=== PATIENT | female | born 1965 | race Caucasian/White ===

== ENCOUNTER → 2018-01-11 12:29 | Outpatient (CLI) | payer BC, SELFPAY ==
[2018-01-11 16:00] LABS: Ferritin 65 ng/mL (8-252); Iron 73 ug/dL (50-170)
== END ==
PROVIDERS: Family Provider Family Medicine; PCP Family Medicine; Visit Provider Family Medicine
DX: D64.9 Anemia, unspecified (principal)
CPT/HCPCS: 36415; 82728; 83540

== ENCOUNTER → 2018-02-14 18:51 | Outpatient (CLI) | payer BC, SELFPAY ==
[2018-02-14 18:53] LABS: Bacteria 0 SEEN /hpf (None Seen); Mucous, Urine 0 SEEN /hpf (<or=2+); Red Blood Cells-Urine 0 SEEN /hpf (0-5)
[2018-02-14 19:06] LABS: Color, Urine Yellow (Yellow); Glucose, Dipstick Normal (Normal); Ketone-Dipstick Negative (Negative); Leukocyte Esterase-Dipstick 25 /ul (Negative); Nitrite-Dipstick Negative (Negative); Occult Blood-Urine Negative /ul (Negative); Protein-Dipstick 15 mg/dl (Negative); Specific Gravity, Urine 1.015 (1.002-1.030); Urine Bilirubin Dipstick Negative (Negative); Urine Clarity Sl. Cloudy (Clear); Urine Urobilinogen Normal (Normal); Urine pH 6.5 (5.0 - 8.0)
[2018-02-14 19:35] LABS: Squamous Epithelial Cells - UA 0-5 SEEN /hpf (5-10); White Blood Cells 0-5 SEEN /hpf (0-5)
== END ==
PROVIDERS: Family Provider Family Medicine; PCP Family Medicine; Visit Provider Physician Assistant Surgical
DX: R30.0 Dysuria (principal)
CPT/HCPCS: 81001; 87086; 87088

== ENCOUNTER → 2018-02-21 11:09 | Outpatient (CLI) | payer BC, SELFPAY ==
--- NOTE | 2018-02-21 11:27 | EKG12_ITS ---
Test Reason : PRE OP Blood Pressure : / mmHG Vent. Rate : 060 BPM Atrial Rate : 060 BPM P-R Int : 172 ms QRS Dur : 084 ms QT Int : 426 ms P-R-T Axes : 008 031 042 degrees QTc Int : 426 ms Normal sinus rhythm Normal ECG Confirmed by STEPHANIE NAILS ([id number]), clinical editor DEMETRIUS CANDELARIO ([id number] on 02/23/2018 2:46:44 PM Referred By: George Cardona Confirmed By:STEPHANIE NAILS
[2018-02-21 11:51] LABS: Hematocrit 42.6 % (37-47); Hemoglobin 14.3 g/dl (12.0-15.0); Mean Corp Hgb Conc 33.6 g/gl (32-36); Mean Corpuscular Hgb 31.6 pg (27.0-32.0); Mean Corpuscular Volume 94.2 fL (81-99); Mean Platelet Vol. 11.2 fl (6.2-12.0); Platelet Count 244 K/mm3 (150-450); RBC Distribution Width CV 12.3 % (11.6-14.6); RBC Distribution Width SD 42.2 fl (35.1-43.9); Red Blood Count 4.52 M/mm3 (4.2-5.4); Scan Indicated on CBC? Y/N NO; White Blood Count 8.6 K/mm3 (4.4-11.0)
[2018-02-21 12:19] LABS: BUN 18 mg/dL (7-18); Creatinine, Serum 0.76 mg/dL (0.55-1.02); EST Glomerular Filtration Rate 85 mL/min (>60); Glucose 91 mg/dL (74-106)
[2018-02-21 12:20] LABS: Anion Gap 7 (5-15); BUN/Creat Ratio 23.8 RATIO (10-20); Calcium,Total 8.7 mg/dL (8.5-10.1); Chloride 105 mmol/L (98-107); Est Glom Filt Rate - Afr Amer 103 mL/min (>60); Potassium 3.9 mmol/L (3.5-5.1); Sodium Level 141 mmol/L (136-145)
== END ==
PROVIDERS: Family Provider Family Medicine; PCP Family Medicine; Visit Provider Orthopaedic Surgery
DX: Z01.818 Encounter for other preprocedural examination (principal); Z01.810 Encounter for preprocedural cardiovascular examination
CPT/HCPCS: 36415; 80048; 85027; 93005

== ENCOUNTER → 2018-03-16 10:44 | Outpatient (CLI) | payer BC, SELFPAY ==
--- NOTE | 2018-03-16 10:48 | RAD_ITS ---
STUDY: X-RAY - LUMBOSACRAL SPINE REASON FOR EXAM: Female, 53 years old. Chronic lower back pain. TECHNIQUE: 7 view(s) of the lumbosacral spine were obtained. COMPARISON: Lumbar spine, August 14, 2014. FINDINGS: Normal lumbar lordosis. There is no substantial scoliosis. There is normal alignment of the vertebrae. No alteration of alignment with flexion or extension. Normal vertebral bodies and endplates. Normal disc space heights. There is no evidence of acute fracture or loss of vertebral axial height. Normal bilateral sacral ala, sacroiliac joints, and visualized sacrum. Normal visualized soft tissue structures. RAD/L/S Spine Bending Flex/Ext IMPRESSION: Normal x-ray examination of the lumbosacral spine. There is no interval change. Electronically Signed: Brodie Morfin DO at 16:05 EDT Tel [phone], Service support ,
== END ==
PROVIDERS: Family Provider Family Medicine; PCP Family Medicine; Visit Provider Family Medicine
DX: M54.5 Low back pain (principal); G89.29 Other chronic pain; M51.36 Other intervertebral disc degeneration, lumbar region
CPT/HCPCS: 72120

== ENCOUNTER 2018-03-18 15:13 | Emergency (ER) | payer BC, SELFPAY ==
[2018-03-18 15:15] VITALS: BP 129/90; PULSE 80; RESP 18; TEMP 36.6; O2SAT 95; BMI 37.9
--- NOTE | 2018-03-18 15:35 | CT_ITS ---
STUDY: CTA CHEST REASON FOR EXAM: Female, 53 years old. Chest pain. Recent knee surgery. RADIATION DOSAGE (If Supplied By Facility): CTDIvol = ( 18.98 ) mGy, DLP = ( 738.82 ) mGycm TECHNIQUE: The examination was performed with the intravenous administration of 100 ml of Isovue 370 contrast material. Post-processing of the angiographic images was performed, with multiplanar reformation and 3D reconstruction. Individualized dose optimization techniques were used for this CT. COMPARISON: None. FINDINGS: Normal enhancement of the main pulmonary artery and right and left pulmonary arteries. Normal enhancement of the bilateral peripheral pulmonary arteries. There is no demonstrated pulmonary embolism. Normal thoracic aorta and visualized great vessels. There is no demonstrated aortic dissection. Normal heart and pericardium. Normal mediastinum. Normal hilar regions. Normal visualized trachea and bronchi. The lungs are under expanded. Normal pulmonary parenchyma. Normal pleura. Normal chest wall structures. Several old left rib fractures are seen. Probable fatty liver. Numerous small low-attenuation structures as much as 1.6 cm consistent with cysts, but recommend confirmation with contrast CT of the abdomen. CT/CTA Chest W/WO Contrast IMPRESSION: Normal CTA chest examination, without a demonstrated pulmonary embolism or arterial dissection. Incomplete expansion of the lungs but no acute disease. Electronically Signed: Martin Garza MD at 16:58 EDT , Service support ,
--- NOTE | 2018-03-18 15:35 | EKG12_ITS ---
Test Reason : CHEST PAIN Blood Pressure : / mmHG Vent. Rate : 081 BPM Atrial Rate : 081 BPM P-R Int : 172 ms QRS Dur : 082 ms QT Int : 394 ms P-R-T Axes : 024 040 038 degrees QTc Int : 457 ms Normal sinus rhythm Normal ECG Confirmed by FILI MASCORRO MD ([id number]), city editor DEMETRIUS CANDELARIO ([id number] on 03/21/2018 1:11:28 PM Referred By: TISH Confirmed By:FILI MASCORRO MD
[2018-03-18 16:19] LABS: Anion Gap 6 (5-15); BUN 14 mg/dL (7-18); BUN/Creat Ratio 16.8 RATIO (10-20); Calcium,Total 8.6 mg/dL (8.5-10.1); Chloride 105 mmol/L (98-107); Creatinine, Serum 0.83 mg/dL (0.55-1.02); EST Glomerular Filtration Rate 76 mL/min (>60); Est Glom Filt Rate - Afr Amer 92 mL/min (>60); Estimated Creatinine Clearance 70.53 ml/min; Glucose 84 mg/dL (74-106); Potassium 3.8 mmol/L (3.5-5.1); Sodium Level 138 mmol/L (136-145)
[2018-03-18 16:29] VITALS: O2SAT 95
[2018-03-18 16:30] LABS: Absolute Lymphocyte Count 1.92 X10^3/ul (0.83-4.51); Absolute Neutrophil Count 6.7 X10^3/uL (2.0-7.7); Basophil# 0.02 X10^3/uL; Basophil% 0.2 % (0-1); Eosinophil# 0.33 X10^3/uL; Eosinophils% 3.5 % (0-5); Hematocrit 38.1 % (37-47); Lymphocyte # 1.92 X10^3/ul (4.0); Lymphocyte % 20.2 % (19-41); Mean Corp Hgb Conc 34.1 g/gl (32-36); Mean Corpuscular Hgb 31.3 pg (27.0-32.0); Mean Corpuscular Volume 91.8 fL (81-99); Mean Platelet Vol. 10.8 fl (6.2-12.0); Monocyte# 0.57 X10^3/uL; Neutrophil # 6.67 X10^3/uL (2.7-7.7); Platelet Count 193 K/mm3 (150-450); RBC Distribution Width SD 40.4 fl (35.1-43.9); Red Blood Count 4.15 M/mm3 (4.2-5.4); White Blood Count 9.5 K/mm3 (4.4-11.0)
[2018-03-18 16:31] LABS: POSITIVE COUNT NO; POSITIVE DIFFERENTIAL NO; POSITIVE MORPHOLOGY NO
--- NOTE | 2018-03-18 17:21 | VDLE_ITS ---
Reason For Study: PAIN RIGHT LEFT GSV is normal. GSV is normal. CFV is compressible, spontaneous, phasic, CFV is compressible, spontaneous, phasic, competent and demonstrates normal competent, and demonstrates normal augmentation. augmentation. FV is compressible, spontaneous, phasic, FV is compressible, spontaneous, phasic, competent and demonstrates normal competent and demonstrates normal augmentation. augmentation. POP V is compressible, spontaneous, phasic, POP V is compressible, spontaneous, phasic, competent and demonstrates normal competent and demonstrates normal augmentation. augmentation. T/P Trunk is compressible. T/P Trunk is compressible. PTV is compressible. PTV is compressible. RT PerV is compressible. LT PerV is compressible. Procedure Exam performed in department. The exam was diagnostic. A preliminary report was called and/or faxed to ED & Dr White (PCP) @ 1:45 pm @ [phone]. Interpretation Summary Deep veins of the lower extremities are bilaterally patent and compressible segmentally. There is no evidence of deep vein thrombosis on either side. Valvular competence appears intact within the proximal deep venous systems bilaterally. The greater saphenous veins appear bilaterally patent and compressible segmentally. Ordering Physician: Peña Paige Referring Physician: Aidan Islas Performed By: Karin Palacios, KARON, RVT
--- NOTE | 2018-03-18 17:27 | ED.VISSUMM ---
- ER Visit Summary Date of Service: 03/18/18 Chief Complaint: Chest pain History of Present Illness: The patient is a 53 F who presents with chest pain. It began earlier today. It has been intermittent. It is sharp. It is worse with inspiration. At its worst it is 6 out of 10. She is currently pain-free. She does report some mild nausea and mild shortness of breath. She had arthroscopic knee surgery 15 days ago. He does note some mild calf pain as well. No history of prior DVT or pulmonary embolism. She does not have coronary artery disease risk factors such as hypertension diabetes hyperlipidemia. She is not a smoker. Physical Examination: Afebrile vitals are normal Moist mucous membranes Heart regular rate and rhythm Lungs are clear Abdomen soft Patient has some mild bilateral calf tenderness but the extremities are warm and pink she has mild edema she has brisk capillary refill normal sensation Test Results: EKG shows normal sinus rhythm at a rate of 81. CBC BMP troponin unremarkable. CTA was obtained which shows no evidence of PE or aortic dissection it shows old left-sided rib fractures. Emergency Department Course and Treatment: Patient has normal CTA and I believe pulmonary embolism is ruled out. However she also has some mild calf tenderness with recent surgery so I do still feel she will need definitively evaluated for DVT as well. Ultrasound is not available. We will arrange for outpatient venous duplex. She was instructed on specific signs and symptoms to monitor for, conditions under which to return to the emergency department. She was discharged. Treatment Plan: [] Disposition: Discharge Impression: Chest pain Bilateral calf pain This note was generated with [employer] dictation software. It may contain incorrect words, spelling, and punctuation that were not noted in review of the chart prior to signing ED Disposition - Plan for ED Patient: Chief Complaint: Chest Pain Referrals: Madelin White DO [Primary Care Provider] -
--- NOTE | 2018-03-18 17:30 | ED.DEP ---
ED Disposition - Plan for ED Patient: Chief Complaint: Chest Pain Instructions: ED Chest Pain NonCardiac Referrals: Madelin White DO [Primary Care Provider] -
[2018-03-18] MEDS: Enoxaparin 100 MG/ML Syringe SC (17:43)
[2018-03-18 17:45] VITALS: BP 130/83; PULSE 68; RESP 18
== END 2018-03-18 17:48 | disposition home or self-care (01) ==
PROVIDERS: Emergency Provider Emergency Medicine; Family Provider Family Medicine; PCP Family Medicine
DX: R07.9 Chest pain, unspecified (principal); M79.662 Pain in left lower leg; M79.661 Pain in right lower leg; G47.33 Obstructive sleep apnea (adult) (pediatric); Z87.891 Personal history of nicotine dependence
CPT/HCPCS: 71275; 80048; 84484; 85025; 93005; 93970; 96372; 99285; Q9967; A4216

== ENCOUNTER → 2018-03-20 13:19 | Outpatient (CLI) | payer BC, SELFPAY | PROVIDERS: Family Provider Family Medicine; PCP Family Medicine; Visit Provider Emergency Medicine | DX: M79.604 Pain in right leg (principal); M79.605 Pain in left leg | CPT/HCPCS: 93970 ==

== ENCOUNTER → 2018-04-24 10:21 | Outpatient (CLI) | payer BC, SELFPAY ==
--- NOTE | 2018-04-24 10:23 | BI_ITS ---
MAMMOGRAPHY - BILATERAL SCREENING REASON FOR EXAM: Female, 53 years old. Routine annual screening examination. PERTINENT HISTORY: Sister with breast cancer. TECHNIQUE: Digital bilateral breast katheryn (3D mammographic acquisition) in the CC and MLO projections. 2-D mediolateral oblique (MLO) and craniocaudad (CC) views of both breasts were obtained. CAD: Full Field Digital Mammography with Computer Added Detection was performed. COMPARISON: Comparison is made with prior study dated January 06, 2017 and December 19, 2015. FINDINGS: Breast Composition: The breasts are heterogeneously dense, which may obscure small masses. There are no dominant masses or suspicious calcifications. Stable appearance of the small bilateral axillary lymph nodes. No other significant abnormalities are identified. There has been no significant change since the prior study. BI/SCREENING MAMM (CAD), BILAT IMPRESSION: Stable bilateral screening mammogram. Yearly follow-up mammogram recommended. (A) ASSESSMENT CATEGORY: BIRADS Category 2: Benign. A letter regarding these results will be sent to the patient by the facility within 30 days. Approximately 10% of breast cancers are not detected by mammography. A normal mammogram should not delay biopsy of a clinically suspicious abnormality. [id number] Electronically Signed: Baljeet Luis MD at 11:40 EDT Tel [phone], Service support ,
== END ==
PROVIDERS: Family Provider Family Medicine; PCP Family Medicine; Visit Provider Family Medicine
DX: Z12.31 Encounter for screening mammogram for malignant neoplasm of breast (principal); Z80.3 Family history of malignant neoplasm of breast
CPT/HCPCS: 77063; 77067

== ENCOUNTER → 2018-05-15 09:46 | Outpatient (CLI) | payer BC, SELFPAY ==
--- NOTE | 2018-05-15 09:53 | RAD_ITS ---
STUDY: X-RAY - RIGHT KNEE REASON FOR EXAM: Female, 53 years old. Pain and swelling. Arthroscopic surgery 10 weeks ago. TECHNIQUE: 4 view(s) of the knee. COMPARISON: June 02, 2016 FINDINGS: Normal visualized distal femur. Normal visualized proximal tibia and fibula. Normal proximal tibiofibular articulation. Normal medial femorotibial compartment. Normal lateral femorotibial compartment. Normal patellofemoral articulation. The soft tissue structures are unremarkable. RAD/Knee 4 or More Views IMPRESSION: No significant abnormality identified. Electronically Signed: Kuldip Plaza MD at 16:52 EDT , Service support ,
== END ==
PROVIDERS: Family Provider Family Medicine; PCP Family Medicine; Visit Provider Family Medicine
DX: M25.561 Pain in right knee (principal)
CPT/HCPCS: 73564

== ENCOUNTER 2018-06-07 11:30 | Outpatient (RCR) | payer BC, SELFPAY ==
--- NOTE | 2018-05-22 09:47 | HP.PTEVAL_ITS ---
Patient's Visit Information RYANNE RENTERIA is a 53 year old F referred to Physical Therapy by Barbara Schaffer with a diagnosis of Back Pain. Date of Evaluation: 05/22/18 Physical Therapist: Graciela Pablo, PT - Visit Plan Frequency: 2x /Week Duration: 3 Weeks Plan: Therapeutic exercise and activities targeting total body strength, endurance, ROM and flexibility, specifically core, low back, scapular and lower extremity. Modalities and Manual as needed to decrease pain and increase ROM. Incorporate HEP to promote maintainence and independence. - Subjective Subjective: Patient presents in therapy today with chief complaint of back pain. She reports pain started a couple months ago without known injury. States she notices it most at work when she is standing and worsens with prolonged standing. 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 States bagging and twisting causes increased cervical pain compared to low back pain. She reports no numbness or tingling in legs but tingling between shoulder blades because of the neck. She reports pain increases with standing, bending over to tie a shoe. She is taking arthritis medication which helps with pain and muscle relaxor to help with pain. [place] her spouse who can help if needed. Independent with ADLs. Has x-ray of cervical spine showing disc degeneration of neck as well throughout lumbar spine per patient report. No MRI yet. Patient had arthroscopic knee surgery of the RLE in February 2018 - Pain low back Pain Intensity (Out of 10): 4 Pain Intensity Range: 3, 6 Comment: worsens with prolonged to standing cervical Pain Intensity (Out of 10): 3 Pain Intensity Range: 2, 5 Comment: worsens at work including tingling - Objective Posture: Sitting unsupported with slouched positioning on mat; Protruded cervical spine and forward flexed. Shoulders rounded in. Palpation: Tenderness to palpation along cervical paraspinals as well as moderate tightness; Tenderness to palpation and pain at T6 level on the right side. Lumbar tenderness and tightness of paraspinals, L>R. Sensation: Intact to light touch. Appearance: No swelling throughout spine. Strength: BUE grossly 5/5 strength except bilateral shoulder flexion 4/5, bilateral ER 4/5, bilateral shoulder retraction 4/5; BLE grossly 4+/5 except for bilateral hip abduction ( seated) 4-/5, bilateral hip flexion 4/5, right knee flexion 4/5, bilateral hip extension 4/5; low back strength 4/5 and core strength 3+/5. Range of Motion: lumbar flexion mild limitation, lumbar extension moderate limitation, lumbar rotation WFL, lumbar right side bending mild limitation, lumbar left side bending moderate limitation. Pain with motion returning to neutral from flexion , lumbar extension and left side bending. Cervical ROM WFL with slight pain with left sidebending. Hips/Knees WFL. Flexibility: Moderate tightness of bilateral hamstrings -25* on the left and -30* on the right. Alignment: Bilateral ASIS and medial malleoli equal in sitting. Gait: Patient ambulating with heel/toe foot progression with slight weight shift of trunk toward the right. increased base of support with ambulating. Repeated Movements: Patient did not show improvement with repeated extension due to muscle tension and flare up - Goals Goal 1:: Patient will increase core and low back strength by one muscle grade for improved posture and performance with functional activities. Goal Time Frame: 4-6 Weeks Goal 2:: Patient will increase bilateral hamstring flexibility by 5* for improved mobility Goal Time Frame: 4-6 Weeks Goal 3:: Patient will increase scapula stabilizing muscles by 1 muscle grade for improved posture and performance with functional activities Goal Time Frame: 4-6 Weeks Goal 4:: Patient will increase lumbar spine ROM in all planes to mild limitation for improved mobility Goal Time Frame: 4-6 Weeks Goal 5:: Patient will increase BLE grossly by 1 muscle grade for improved mobility and performance with functional activities Goal Time Frame: 4-6 Weeks Goal 6:: Patient will perform 10 minutes of therapeutic exercises and activities in standing without increase in low back pain Goal Time Frame: 4-6 Weeks - Rehabilitation Potential Physical Therapy Diagnosis: Muscle Weakness, Limited Range of Motion Rehabilitation Potential: Good - Anticipated Interventions Patient/Client Instruction: Educate patient on: Condition, Plan of Care For the Purpose of:: To decrease pain, To increase ROM, To improve muscle performance and motor function, To improve ability to perform ADL's, To improve ability of physical actions for home/community/work/leisure, To increase flexibility/ROM, To improve endurance Therapeutic Exercise to Include: Strength training, Endurance training, Body mechanics, Postural training, Flexibilty training, Dynamic Lumbar Stabilization , Rico Exercises, Scapular Strength/Stabilization For the Purpose of:: To increase ROM, To improve muscle performance and motor function, To improve ability of physical actions for home/community/work/leisure , To increase flexibility/ROM, To improve endurance Functional Training to Include: Functional work training For the Purpose of:: To improve muscle performance and motor function, To improve ability of physical actions for home/community/work/leisure Comment: massage not covered by insurance For the Purpose of:: To decrease pain, To increase ROM, To increase flexibility/ ROM Iontophoresis (with Dexamethozone, with Acetic acid): - not covered by insurance TENS: Yes Cryotherapy (ice pack, ice massage): Yes Thermo therapy (hot pack): Yes Ultrasound (thermal/non thermal): Yes For the Purpose of:: To decrease pain, To increase ROM, To increase flexibility/ ROM Thank you for the opportunity to evaluate your patient. For Medicare and Medicare HMO plans, please review the plan of care and approve it. It will need to be FAXED BACK to us at [phone] for Medicare purposes. Please let me know if there are questions or concerns regarding this plan of care. Physician Signature: Date:
--- NOTE | 2018-06-07 11:55 | HP.PTDCSUM_ITS ---
HP - PT D/C Summary It has been my pleasure to treat RYANNE RENTERIA under orders from Barbara Schaffer, for the diagnosis of Back Pain for a total of 7 visit(s). Discharge Date: Please see the following information for a summary of their discharge status. - Subjective Subjective: Patient conts to be in pain back and cervical. Patient had lumbar injections lumbar region helped minimally. Recommend MRI - Pain low back Pain Intensity (Out of 10): 4 cervical Pain Intensity (Out of 10): 4 - Overall Improvement % Improvement: 20 - Objective Objective/Function: POSTURE: mild foward posture. GAIT: normal jaquan. NEURO : c/o parathesia between shoulders ,reflexes inact. MMT: 4/5 LE grossly. LUMBAR ROM: flexion mod loss,extension mod severe loss pain,side glides mod loss. -SLR - Goals Goal 1:: Patient will increase core and low back strength by one muscle grade for improved posture and performance with functional activities. Goal Progress: Progressing Goal 2:: Patient will increase bilateral hamstring flexibility by 5* for improved mobility Goal Progress: Progressing Goal 3:: Patient will increase scapula stabilizing muscles by 1 muscle grade for improved posture and performance with functional activities Goal Progress: Progressing Goal 4:: Patient will increase lumbar spine ROM in all planes to mild limitation for improved mobility Goal Progress: Progressing Goal 5:: Patient will increase BLE grossly by 1 muscle grade for improved mobility and performance with functional activities Goal Progress: Progressing Goal 6:: Patient will perform 10 minutes of therapeutic exercises and activities in standing without increase in low back pain Goal Progress: Progressing - Plan Plan: D/C RECOMMEND mri - D/C Information If there are questions or concerns regarding this patient's physical therapy, please feel free to call me at [phone]. Thank you for the referral of this patient. Sincerely, Sundar Mantilla, PT,
== END 2018-06-07 19:00 | disposition home or self-care (01) ==
LOC: PT 11:30
PROVIDERS: Family Provider Family Medicine; PCP Family Medicine; Visit Provider Anesthesiology Pain Medicine
DX: M54.9 Dorsalgia, unspecified (principal)
CPT/HCPCS: 97110; 97161; 97162; 97530

== ENCOUNTER → 2018-06-14 17:02 | Outpatient (CLI) | payer BC, SELFPAY ==
--- NOTE | 2018-06-14 17:06 | MRI_ITS ---
STUDY: MRI CERVICAL SPINE WITHOUT CONTRAST REASON FOR EXAM: Female, 53 years old. NECK AND ARM PAIN NKI, pain neck and rt arm x 3 months TECHNIQUE: Standardized fat and water weighted pulse sequences were obtained in the sagittal and axial planes. COMPARISON: None FINDINGS: There is motion artifact. Normal foramen magnum and brainstem-cervical cord junction. Normal craniovertebral junction. Normal anterior atlantoaxial articulation. Normal odontoid process. Normal cervical lordosis. There is no spondylolisthesis. Disc heights are maintained. Vertebral body heights are maintained. Bone marrow signal is normal. C2/3: Normal. C3/4: Normal. C4/5: Normal. C5/6: There is a minimal diffuse bulge causing impression on the ventral thecal sac without neural foraminal stenosis. C6/7: There is a mild diffuse bulge causing impression on the ventral thecal sac without neuroforaminal stenosis. C7/T1: Normal. Normal cervical cord. Normal visualized soft tissue structures. MRI/Spine Cervical (Routine) IMPRESSION: There is minimal degenerative disc disease. No central canal or neuroforaminal stenosis. Electronically Signed: Marguerite Gusman MD at 15:58 EDT , Service support ,
== END ==
PROVIDERS: Family Provider Family Medicine; PCP Family Medicine; Visit Provider Anesthesiology Pain Medicine
DX: M54.2 Cervicalgia (principal); M79.603 Pain in arm, unspecified
CPT/HCPCS: 72141

== ENCOUNTER → 2018-07-04 15:39 | Outpatient (CLI) | payer BC, SELFPAY | PROVIDERS: Family Provider Family Medicine; PCP Family Medicine; Visit Provider Family Medicine | DX: M54.16 Radiculopathy, lumbar region (principal) | CPT/HCPCS: 72148 ==

== ENCOUNTER → 2018-09-14 11:26 | Outpatient (CLI) | payer BC, SELFPAY | PROVIDERS: Family Provider Family Medicine; PCP Family Medicine; Visit Provider Family Medicine | DX: R00.2 Palpitations (principal) | CPT/HCPCS: 36415; 80053; 83735; 84443 ==

== ENCOUNTER → 2018-09-18 13:15 | Outpatient (CLI) | payer BC, SELFPAY ==
[2018-09-18 15:40] LABS: Absolute Lymphocyte Count 2.08 X10^3/ul (0.83-4.51); Absolute Neutrophil Count 5.9 X10^3/uL (2.0-7.7); Basophil# 0.04 X10^3/uL; Basophil% 0.4 % (0-1); Eosinophil# 0.19 X10^3/uL; Eosinophils% 2.1 % (0-5); Hemoglobin 13.3 g/dl (12.0-15.0); Lymphocyte # 2.08 X10^3/ul (4.0); Lymphocyte % 23.3 % (19-41); Mean Corpuscular Hgb 33.9 pg (27.0-32.0); Mean Corpuscular Volume 96.9 fL (81-99); Mean Platelet Vol. 12.5 fl (6.2-12.0); Monocyte# 0.64 X10^3/uL; Monocyte% 7.2 % (0-10); Neutrophil # 5.91 X10^3/uL (2.7-7.7); Neutrophil % 66.3 % (47-70); Platelet Count 221 K/mm3 (150-450); RBC Distribution Width CV 12.2 % (11.6-14.6); RBC Distribution Width SD 41.3 fl (35.1-43.9); Red Blood Count 3.92 M/mm3 (4.2-5.4); White Blood Count 8.9 K/mm3 (4.4-11.0)
[2018-09-18 15:53] LABS: ALB/GLOB Ratio 1.3 RATIO (0.9-2.4); AST(SGOT) 17 U/L (15-37); Alanine Aminotransfer ALT/SGPT 51 U/L (13-56); Albumin, Serum 4.1 g/dL (3.2-5.0); Alkaline Phosphatase 72 U/L (45-117); Anion Gap 10 (5-15); BUN 11 mg/dL (7-18); BUN/Creat Ratio 16.3 RATIO (10-20); Calcium,Total 8.9 mg/dL (8.5-10.1); Chloride 104 mmol/L (98-107); Creatinine, Serum 0.68 mg/dL (0.55-1.02); EST Glomerular Filtration Rate 97 mL/min (>60); Est Glom Filt Rate - Afr Amer 117 mL/min (>60); Globulin 3.2 g/dL (2.2-4.2); Glucose 78 mg/dL (74-106); Magnesium 1.6 mg/dL (1.6-2.6); Potassium 3.6 mmol/L (3.5-5.1); Protein, Total 7.3 g/dL (6.4-8.2); Sodium Level 138 mmol/L (136-145); Thyroid Stim Hormone (TSH) 1.96 uIU/mL (0.358-3.74)
[2018-09-18 16:01] LABS: POSITIVE COUNT NO; POSITIVE DIFFERENTIAL NO; POSITIVE MORPHOLOGY NO
== END ==
PROVIDERS: Family Provider Family Medicine; PCP Family Medicine; Referring Provider Family Medicine; Visit Provider Family Medicine
DX: R00.2 Palpitations (principal)
CPT/HCPCS: 80053; 83735; 84443; 85025

== ENCOUNTER 2018-10-19 10:00 | Outpatient (RCR) | payer BC, SELFPAY ==
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
--- NOTE | 2018-08-24 09:31 | HP.PTREVAL ---
Madelin White, DO, It has been my pleasure to treat RYANNE RENTERIA over the last 11 visits for LUMBAR DISC SPACE NARROWING AND HNP. Please see the progress note below for an update on the physical therapy plan of care! Subjective: PATIENT REPORTS SHE HAS LESS BACK PAIN SINCE STARTING PT AND THE HIP EX'S ARE HELPING MY HIP PAIN TOO. PATIENT REPORTS SHE IS TOLERATING WORK AND HOUSEWORK BETTER WITH LESS PAIN. INTERMITTENT LB AND HIP PAIN RANGING 0/10 TO 5/10. PO WITH DR. BAR ABOUT 3 WEEKS AGO BUT DIDN'T REALLY HELP SO GOING TO DO ANOTHER ONE WHEN APPROVAL REC'D. Objective/Function: PATIENT IS MAKING SLOW PROGRESS TOWARD ALL PT GOALS. Motor deficit: LATISHA LE'S 5/5 EXCEPT HIPS 4/5. Sensory deficit: LATISHA LE LIGHT TOUCH SENSATION IS INTACT AND SYMMETRICAL. ROM deficit: MILD TIGHTNESS HIP FLEXORS AND HAMSTRINGS. Reflexes: 2/3 LATISHA LE'S. Dural Signs: NEGATIVE LATISHA LE'S. Lumbar mvmt loss: flex - MIN. ext - MOD. R SG - MOD. L SG - MOD. PATIENT WITH C/O PAIN AT THE END OF THE AVAILABLE RANGE WITH LUMBAR ROM TESTING ALL PLANES. Core strength: POOR. Palpation: ACUTE TENDERNESS WITH PALPATION OF THE LOWER LUMBAR SPINE BUT NOT IN THE BUTTOCKS OR HIPS BUT NOT QUITE TENDER AT INITIAL EVAL. BACK OSWESTRY HAS IMPROVED FROM 22 TO 14 Plan Plan: CONT PT PER ORIG POC WITH SLOW PROGRESSION TO INDEP POOL PROGRAM. 2X'S A WEEK X 3 WEEKS THEN 1X A WEEK X 4 WEEKS. Goals Goal 1:: DECREASE C/O LBP Goal Time Frame: 4-6 Weeks Goal Progress: Progressing Goal 2:: IMPROVE PERSONAL CARE, LIFTING, WALKING, SITTING, STANDING, SLEEPING, SOCIAL LIFE, TRAVEL AND EMPLOYMENT/HOMEMAKING FUNCTION. Goal Time Frame: 4-6 Weeks Goal Progress: Progressing Goal 3:: INSTRUCT IN PROPHYLAXIS Goal Time Frame: 4-6 Weeks Goal Progress: Progressing Anticipated Interventions Patient/Client Instruction: Educate patient on: Condition, Plan of Care, Risk Factors, Benefits of Fitness Program For the Purpose of:: To improve self management Therapeutic Exercise to Include: Strength training, Body mechanics, Postural training, Flexibilty training, In an aquatic setting, Dynamic Lumbar Stabilization For the Purpose of:: To decrease pain, To increase ROM, To improve muscle performance and motor function, To increase tolerance to activity/condition/position, To improve ability of physical actions for home/community/work/leisure, To improve gait and locomotor functions Please do not hesitate to contact me at [phone] by phone or if you have questions or concerns regarding this new plan of care! Sincerely, Viki Solano
--- NOTE | 2018-10-19 10:54 | HP.PTDCSUM_ITS ---
HP - PT D/C Summary It has been my pleasure to treat RYANNE RENTERIA under orders from Madelin White DO, for the diagnosis of LUMBAR DISC SPACE NARROWING AND HNP for a total of 18 visit(s). Discharge Date: 10/19/18 Please see the following information for a summary of their discharge status. - Subjective Subjective: PATIENT REPORTS SHE ADMITTED HERSELF TO THE PSYCH UNIT IN [place] FOR A WEEK AND WASN'T ABLE TO EX AND SWIM. REPORTS SHE JUST GOT HOME LAST NIGHT. PATIENT REPORTS HER PAIN WAS GETTING BETTER WITH THE POOL THERAPY UP UNTIL SHE HAD TO STOP. PATIENT PLANS TO CONTINUE INDEP WATER EX AT THE [facility]. FOLLOW UP PENDING WITH DR. SRIVASTAVA END October. - Pain Lumbar Spine Pain Intensity (Out of 10): 4 BLAT hips Pain Intensity (Out of 10): 4 SHldrs/Cerv. Spine Pain Intensity (Out of 10): 3 - Overall Improvement % Improvement: 95 - Objective Objective/Function: ALL GOALS MET. PATIENT IS INDEP WITH POOL AND WATER EX PROGRAMS. UPON EXAM: Motor deficit: LATISHA LE'S 5/5 EXCEPT HIPS 4/5. Sensory deficit: LATISHA LE LIGHT TOUCH SENSATION IS INTACT AND SYMMETRICAL. Reflexes: UNABLE TO ELICIT LATISHA QUAD DTR'S BUT LATISHA ACHILLES 2/2. Dural Signs: NEGATIVE LATISHA LE'S. Lumbar mvmt loss: flex - MIN. ext - MOD. R SG - MOD. L SG - MOD. PATIENT WITH C/O PAIN AT THE END OF THE AVAILABLE RANGE WITH LUMBAR ROM TESTING ALL PLANES. Core strength: POOR. Palpation: ACUTE TENDERNESS WITH PALPATION OF THE LOWER LUMBAR SPINE BUT NOT IN THE BUTTOCKS OR HIPS BUT NOT QUITE TENDER AT INITIAL EVAL. BACK OSWESTRY HAS GONE BACK UP TO 22 AFTER BEING IN THE HOSPITAL FOR A WEEK. - Goals Goal 1:: DECREASE C/O LBP Goal Progress: Progressing Goal 2:: IMPROVE PERSONAL CARE, LIFTING, WALKING, SITTING, STANDING, SLEEPING, SOCIAL LIFE, TRAVEL AND EMPLOYMENT/HOMEMAKING FUNCTION. Goal Progress: Progressing Goal 3:: INSTRUCT IN PROPHYLAXIS Goal Progress: Progressing - Plan Plan: D/C TO INDEP POOL EX. AND HOME EX'S. PATIENT IS EVEN PLANNING TO DO HER POOL PROGRAM AT THE [facility] TODAY. - D/C Information If there are questions or concerns regarding this patient's physical therapy, please feel free to call me at [phone]. Thank you for the referral of this patient. Sincerely, Viki Solano
== END 2018-10-19 19:00 | disposition home or self-care (01) ==
LOC: PT 10:00
PROVIDERS: Family Provider Family Medicine; PCP Family Medicine; Referring Provider Family Medicine; Visit Provider Family Medicine
DX: M51.26 Other intervertebral disc displacement, lumbar region (principal)
CPT/HCPCS: 97113; 97162; 97164; 97530

== ENCOUNTER → 2018-11-09 13:18 | Outpatient (CLI) | payer BC, SELFPAY ==
[2018-11-09 14:18] LABS: Hemoglobin 14.4 g/dl (12.0-15.0); Mean Corp Hgb Conc 35.1 g/gl (32-36); Mean Corpuscular Hgb 32.4 pg (27.0-32.0); Mean Corpuscular Volume 92.3 fL (81-99); Mean Platelet Vol. 11.9 fl (6.2-12.0); Platelet Count 256 K/mm3 (150-450); RBC Distribution Width SD 39.8 fl (35.1-43.9); Red Blood Count 4.44 M/mm3 (4.2-5.4); White Blood Count 7.7 K/mm3 (4.4-11.0)
[2018-11-09 14:22] LABS: Scan Indicated on CBC? Y/N NO
[2018-11-09 14:59] LABS: Anion Gap 12 (5-15); BUN 16 mg/dL (7-18); BUN/Creat Ratio 20.1 RATIO (10-20); Calcium,Total 8.8 mg/dL (8.5-10.1); Chloride 106 mmol/L (98-107); EST Glomerular Filtration Rate 80 mL/min (>60); Est Glom Filt Rate - Afr Amer 97 mL/min (>60); Glucose 93 mg/dL (74-106); Sodium Level 141 mmol/L (136-145); T4 Total, Thyroxin 6.6 ug/dL (4.8-13.9); Thyroid Stim Hormone (TSH) 3.92 uIU/mL (0.358-3.74)
== END ==
PROVIDERS: Family Provider Family Medicine; PCP Family Medicine
DX: F33.1 Major depressive disorder, recurrent, moderate (principal)
CPT/HCPCS: 36415; 80048; 80178; 84436; 84443; 85027

== ENCOUNTER → 2019-01-12 16:04 | Outpatient (CLI) | payer BC, SELFPAY ==
[2019-01-12 18:04] LABS: T4 Free Direct 1.12 ng/dL (0.76-1.46); Thyroid Stim Hormone (TSH) 5.58 uIU/mL (0.358-3.74)
[2019-01-16 13:30] LABS: Anti-Thyroglobulin AB < 1.0 IU/mL (0.0-0.9); Thyroid Peroxidase AB 7 IU/mL (0-34)
== END ==
PROVIDERS: Family Provider Family Medicine; PCP Family Medicine; Referring Provider Family Medicine; Visit Provider Family Medicine
DX: R79.89 Other specified abnormal findings of blood chemistry (principal); F33.1 Major depressive disorder, recurrent, moderate
CPT/HCPCS: 36415; 84432; 84439; 84443; 86376; 86800

== ENCOUNTER → 2019-04-04 12:16 | Outpatient (CLI) | payer BC, SELFPAY ==
[2019-04-04 14:33] LABS: CPK Total, Creatine Kinase 113 U/L (26-192); Ferritin 45 ng/mL (8-252)
== END ==
PROVIDERS: Family Provider Family Medicine; PCP Family Medicine; Referring Provider Family Medicine; Visit Provider Family Medicine
DX: R25.2 Cramp and spasm (principal)
CPT/HCPCS: 36415; 82550; 82728; 83735; 84132

== ENCOUNTER → 2019-04-17 14:21 | Outpatient (CLI) | payer BC, SELFPAY ==
[2019-04-17 16:13] LABS: ALB/GLOB Ratio 1.2 RATIO (0.9-2.4); AST(SGOT) 16 U/L (15-37); Alanine Aminotransfer ALT/SGPT 22 U/L (13-56); Albumin, Serum 3.6 g/dL (3.2-5.0); Alkaline Phosphatase 73 U/L (45-117); Anion Gap 6 (5-15); BUN 21 mg/dL (7-18); BUN/Creat Ratio 30.9 RATIO (10-20); Calcium,Total 8.8 mg/dL (8.5-10.1); Chloride 106 mmol/L (98-107); Creatinine, Serum 0.68 mg/dL (0.55-1.02); EST Glomerular Filtration Rate 96 mL/min (>60); Est Glom Filt Rate - Afr Amer 116 mL/min (>60); Globulin 2.9 g/dL (2.2-4.2); Glucose 68 mg/dL (74-106); Magnesium 1.7 mg/dL (1.6-2.6); Protein, Total 6.5 g/dL (6.4-8.2); Sodium Level 139 mmol/L (136-145); T4 Free Direct 1.08 ng/dL (0.76-1.46); Thyroid Stim Hormone (TSH) 1.96 uIU/mL (0.358-3.74)
== END ==
PROVIDERS: Family Provider Family Medicine; PCP Family Medicine; Referring Provider Family Medicine; Visit Provider Family Medicine
DX: E03.9 Hypothyroidism, unspecified (principal); I47.1 Supraventricular tachycardia
CPT/HCPCS: 36415; 80053; 83735; 84439; 84443

== ENCOUNTER → 2019-04-25 | Outpatient (CLI) | payer BC, SELFPAY ==
--- NOTE | 2019-04-25 09:59 | BI_ITS ---
MAMMOGRAPHY - BILATERAL SCREENING REASON FOR EXAM: Female, 54 years old. Routine annual screening examination. PERTINENT HISTORY: Sister with breast cancer. TECHNIQUE: Digital bilateral breast kasia (3D mammographic acquisition) in the CC and MLO projections. 2-D mediolateral oblique (MLO) and craniocaudad (CC) views of both breasts were obtained. CAD: Full Field Digital Mammography with Computer Added Detection was performed. COMPARISON: Comparison is made with prior examination dated April 24, 2018 and January 06, 2017. FINDINGS: Breast Composition: The breasts are heterogeneously dense, which may obscure small masses. There are no dominant masses or suspicious calcifications. Stable benign-appearing bilateral axillary lymph nodes. No other significant abnormalities are identified. There has been no significant change since the prior study. BI/SCREEN MAMM (CAD) W/KASIA BILAT IMPRESSION: Stable bilateral screening mammogram. Yearly follow-up mammogram recommended. (A) ASSESSMENT CATEGORY: BIRADS Category 2: Benign. A letter regarding these results will be sent to the patient by the facility within 30 days. Approximately 10% of breast cancers are not detected by mammography. A normal mammogram should not delay biopsy of a clinically suspicious abnormality. [id number] Electronically Signed: Baljeet Luis, at 10:57 EDT , Service support ,
== END | disposition home or self-care (01) ==
LOC: OPBI 09:57
PROVIDERS: Family Provider Family Medicine; PCP Family Medicine; Referring Provider Family Medicine; Visit Provider Family Medicine
DX: Z12.31 Encounter for screening mammogram for malignant neoplasm of breast (principal)
CPT/HCPCS: 77063; 77067

== ENCOUNTER → 2019-08-07 09:03 | Outpatient (CLI) | payer BC, SELFPAY ==
[2019-08-07 10:28] LABS: Hematocrit 42.6 % (37-47); Hemoglobin 14.8 g/dL (12.0-15.0); Mean Corp Hgb Conc 34.7 g/dL (32-36); Mean Corpuscular Hgb 31.8 pg (27.0-32.0); Mean Corpuscular Volume 91.4 fL (81-99); Mean Platelet Vol. 11.8 fl (6.2-12.0); Platelet Count 245 K/mm3 (150-450); RBC Distribution Width CV 11.7 % (11.6-14.6); RBC Distribution Width SD 38.5 fl (35.1-43.9); Red Blood Count 4.66 M/mm3 (4.2-5.4)
[2019-08-07 11:24] LABS: Anion Gap 9 (5-15); BUN 13 mg/dL (7-18); BUN/Creat Ratio 17.7 RATIO (10-20); Calcium,Total 8.7 mg/dL (8.5-10.1); Chloride 109 mmol/L (98-107); Creatinine, Serum 0.73 mg/dL (0.55-1.02); EST Glomerular Filtration Rate 88 mL/min (>60); Est Glom Filt Rate - Afr Amer 106 mL/min (>60); Glucose 106 mg/dL (74-106); Potassium 4.1 mmol/L (3.5-5.1); Sodium Level 142 mmol/L (136-145); T4 Free Direct 1.23 ng/dL (0.76-1.46); Thyroid Stim Hormone (TSH) 3.14 uIU/mL (0.358-3.74)
[2019-08-08 10:02] LABS: Hemoglobin A1c 5.1 % (4.2-6.3)
== END ==
PROVIDERS: Family Provider Family Medicine; PCP Family Medicine
DX: F33.2 Major depressive disorder, recurrent severe without psychotic features (principal)
CPT/HCPCS: 36415; 80048; 83036; 84439; 84443; 85027

== ENCOUNTER → 2019-11-12 12:51 | Outpatient (CLI) | payer BC, SELFPAY ==
[2019-11-12 13:55] LABS: Hematocrit 44.4 % (37-47); Hemoglobin 15.3 g/dL (12.0-15.0); Mean Corp Hgb Conc 34.5 g/dL (32-36); Mean Corpuscular Hgb 31.2 pg (27.0-32.0); Mean Corpuscular Volume 90.6 fL (81-99); Mean Platelet Vol. 11.9 fl (6.2-12.0); Platelet Count 245 K/mm3 (150-450); RBC Distribution Width CV 11.9 % (11.6-14.6); RBC Distribution Width SD 39.4 fl (35.1-43.9); White Blood Count 8.3 K/mm3 (4.4-11.0)
[2019-11-12 14:40] LABS: Anion Gap 5 (5-15); BUN 12 mg/dL (7-18); BUN/Creat Ratio 14.2 RATIO (10-20); Calcium,Total 9.1 mg/dL (8.5-10.1); Chloride 105 mmol/L (98-107); Creatinine, Serum 0.84 mg/dL (0.55-1.02); EST Glomerular Filtration Rate 75 mL/min (>60); Est Glom Filt Rate - Afr Amer 90 mL/min (>60); Glucose 80 mg/dL (74-106); Potassium 3.6 mmol/L (3.5-5.1); Sodium Level 136 mmol/L (136-145); Thyroid Stim Hormone (TSH) 4.57 uIU/mL (0.358-3.74)
== END ==
PROVIDERS: Family Provider Family Medicine; PCP Family Medicine
DX: F33.2 Major depressive disorder, recurrent severe without psychotic features (principal)
CPT/HCPCS: 36415; 80048; 80178; 84443; 85027

== ENCOUNTER 2020-01-03 09:20 | Outpatient (RCR) | payer BC, SELFPAY ==
[2019-11-27 08:10] VITALS: BMI 37.1
--- NOTE | 2020-01-03 12:51 | HP.FCE ---
HP OT Functional Capacity Eval Date of Evaluation: 01/03/20 - Task Lift Floor (Occasional 1-33% of Day): 20 Floor (Frequent 34-66% of Day): 10 Floor (Constant 67-100% of Day): Negligible Floor PDL: Light Knee (Occasional 1-33% of Day): 20 Knee (Frequent 34-66% of Day): 10 Knee (Constant 67-100% of Day): Negligible Knee PDL: Light Waist (Occasional 1-33% of Day): 20 Waist (Frequent 34-66% of Day): 10 Waist (Constant 67-100% of Day): Negligible Waist PDL: Light Shoulder (Occasional 1-33% of Day): 17 Shoulder (Frequent 34-66% of Day): 10 Shoulder (Constant 67-100% of Day): Negligible Shoulder PDL: Sedentary-Light Overhead (Occasional 1-33% of Day): 17 Overhead (Frequent 34-66% of Day): 10 Overhead (Constant 67-100% of Day): Negligible Overhead PDL: Sedentary-Light - Work Activity/Posture Bending: Occasional Ability (1-33% of day) Squatting: Occasional Ability (1-33% of day) Kneeling: Occasional Ability (1-33% of day) Reaching out: Frequent Ability (34-66% of day) Reaching up: Frequent Ability (34-66% of day) Sitting: Constant Ability (67-100% of day) Walking: Occasional Ability (1-33% of day) Standing: Occasional Ability (1-33% of day) - Reference Duration Sedentary Sedentary Light Light Light Medium Medium Medium Heavy Very Heavy Heavy Occasional (0-33% of day) Frequent (34-66% of day) Constant (67-100% of day) 10 # Negligible Negligible 15 # 8 # Negligible 20 # 10# Negli. 35 # 18 # 7 # 50 # 25 # 10 # 75 # 100 # >100 # 38 # 50 # >50 # 15 # 20 # >20 # - Patient Information Height: 5 ft 2 in Weight:: 90.718 kg Hand Dominance: Right - Medical History Medical History Including Restrictions: PMHx: Osteoarthritis bilateral shoulders, osteoarthritis R hand, degeneration of lumbosacral intervertebral disc, lumbosacral spondylosis, lumbosacral stenosis, arthropathy of lumbar facet, pain in right hip joint, anxiety, depression, 1972 ureter sx, sleep apnea, tonsilectomy, uses CPAP. R knee arthroscopic sx. Chronic insomnia. - Diagnoses Diagnoses: degeneration of lumbosacral intervertebral disc, lumbosacral spondylosis, lumbosacral stenosis, arthropathy of lumbar facet, pain in right hip joint. - Symptoms Symptoms: Pt reports symptoms vary day by day. Bilateral hip pain aching, left lower back pain sharp pain, bilateral shoulder aching pain. 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 - ADLS ADLS: Pt lives in ranch style home with spouse, 2 steps to enter no handrail. Flight of steps to basement with handrail. Laundry in basement. Spouse carries laundry up/down steps. Pt doesn't have to worry about going up/down steps to basement. Drives. Sleeps in regular bed. States doesn't sleep more than 6 hrs at a time because of pain, chronic insomnia Independent with BADLs. Pt completes simple meal prep tasks, light housekeeping tasks, folds laundry but doesn't carry laundry basket with clothes or move laundry from washer to dryer. Walk in shower, HHS, stands in shower. 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 Hobbies; play games on tablet, goes to [employer] to swim occassionally. Std cane available but doesn't need it. AMB no device. - Physical Examination ROM: BUE WFL, BLE WFL Strength: Generalized MMT R UE 4/5 L UE 4+/5, R LE 4+/5, L LE 4/5 Right Installer Interior Assemblies Strength Average: 61.66 Left Installer Interior Assemblies Strength Average: 63.66 Right Lateral Pinch Average: 6.00 Left Lateral Pinch Average: 3.66 Right Tripod Pinch Average: 5.00 Left Tripod Pinch Average: 3.00 Comments: Pt right hand dominent. Sensation: Pt reports no numbness or tingling bilateral hands or feet. Fine Motor: No fine motor concerns per pt. Balance: Pt reports no falls in last 3 months. Pt demo good righting reactions all directions. - Non Material Handling Activities Bending: Using modified 12inch box for bending tasks, 1x, 10x, 4x fast unable to continue secondary to pain left lower back aching, sharp pain. Preferred to stand after instead of sitting down secondary to pain. Squatting: modified squat, unable to squat all the way down, 1x, 10x, 10x fast Kneelinx, 5x using L arm support on desk, pt reports had to stop secondary to increased pain in L lower back. Reaching out/up: Reaching up while standing 1x, 10x, 10x fast. Reaching out to sides while standing right and left 1x, 10x, 10x fast. Walking: Completed 3 min 38 seconds of 15 min walk test then required seated rest break secondary pain L lower pain. Pt states very stiff this date unable to walk anymore. 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 Sitting: Pt able to sit for first 35 min of test without s/s of pain or discomfort. Climbing Stairs: Pt able to climb flight of 10 steps using bilateral hand rails reciprocal movement of feet. No loss of balance or break needed on steps. - Dynamic Occasional Lifting Capacity Floor Lift: 20lb max Knee Lift: 20lb max Waist Lift: 20lb max Shoulder Lift: 17lb max Overhead Lift: 17lb max Carryinlb max Comments: Pt reports bilateral shoulders sore and back sore after completing lifting tasks.
== END 2020-01-03 19:00 | disposition home or self-care (01) ==
LOC: OT 09:20
PROVIDERS: PCP Family Medicine; Referring Provider Anesthesiology Pain Medicine; Visit Provider Anesthesiology Pain Medicine
DX: M51.37 Other intervertebral disc degeneration, lumbosacral region (principal); M47.817 Spondylosis without myelopathy or radiculopathy, lumbosacral region; M48.07 Spinal stenosis, lumbosacral region; M46.96 Unspecified inflammatory spondylopathy, lumbar region; M25.551 Pain in right hip
CPT/HCPCS: 97165; 97167

== ENCOUNTER → 2020-01-24 | Outpatient (CLI) | payer BC, SELFPAY ==
[2019-11-27 08:10] VITALS: BMI 37.1
[2020-01-24 12:34] LABS: Absolute Lymphocyte Count 1.78 X10^3/uL (0.83-4.51); Basophil# 0.07 X10^3/uL; Basophil% 0.6 % (0-1); Eosinophils% 1.8 % (0-5); Hemoglobin 14.1 g/dL (12.0-15.0); Lymphocyte # 1.78 X10^3/ul (4.0); Lymphocyte % 16.4 % (19-41); Mean Corp Hgb Conc 32.8 g/dL (32-36); Mean Corpuscular Hgb 31.1 pg (27.0-32.0); Mean Corpuscular Volume 94.9 fL (81-99); Mean Platelet Vol. 11.7 fl (6.2-12.0); Monocyte% 5.5 % (0-10); NRBC Flagged by Analyzer 0 % (0-5); Neutrophil # 8.03 X10^3/uL (2.7-7.7); Neutrophil % 74.3 % (47-70); Platelet Count 294 K/mm3 (150-450); RBC Distribution Width CV 12.8 % (11.6-14.6); RBC Distribution Width SD 44.1 fl (35.1-43.9); Red Blood Count 4.53 M/mm3 (4.2-5.4); White Blood Count 10.8 K/mm3 (4.4-11.0)
[2020-01-24 12:50] LABS: T4 Free Direct 1.15 ng/dL (0.76-1.46)
[2020-01-24 12:56] LABS: ALB/GLOB Ratio 0.9 RATIO (0.9-2.4); AST(SGOT) 13 U/L (15-37); Alanine Aminotransfer ALT/SGPT 23 U/L (13-56); Albumin, Serum 3.3 g/dL (3.2-5.0); Alkaline Phosphatase 89 U/L (45-117); Anion Gap 6 (5-15); BUN 16 mg/dL (7-18); BUN/Creat Ratio 23.3 RATIO (10-20); Calcium,Total 8.7 mg/dL (8.5-10.1); Chloride 106 mmol/L (98-107); Creatinine, Serum 0.69 mg/dL (0.55-1.02); EST Glomerular Filtration Rate 94 mL/min (>60); Est Glom Filt Rate - Afr Amer 114 mL/min (>60); Globulin 3.8 g/dL (2.2-4.2); Glucose 110 mg/dL (74-106); Magnesium 1.9 mg/dL (1.6-2.6); Protein, Total 7.1 g/dL (6.4-8.2); Sodium Level 137 mmol/L (136-145); Thyroid Stim Hormone (TSH) 0.85 uIU/mL (0.358-3.74)
[2020-01-24 13:01] LABS: Hemoglobin A1c 4.9 % (4.2-6.3)
[2020-01-25 13:10] LABS: Thyroid Peroxidase AB < 9 IU/mL (0-34)
== END | disposition home or self-care (01) ==
LOC: MTLAB 09:51
PROVIDERS: Internal Medicine Endocrinology, Diabetes & Metabolism; PCP Family Medicine
DX: E03.2 Hypothyroidism due to medicaments and other exogenous substances (principal); T56.891A Toxic effect of other metals, accidental (unintentional), initial encounter; R73.09 Other abnormal glucose; I47.1 Supraventricular tachycardia; F33.1 Major depressive disorder, recurrent, moderate
CPT/HCPCS: 36415; 80053; 80178; 83036; 83735; 84439; 84443; 85025; 86376

== ENCOUNTER → 2020-03-07 | Outpatient (CLI) | payer BC, SELFPAY ==
[2019-11-27 08:10] VITALS: BMI 37.1
--- NOTE | 2020-03-07 09:52 | US_ITS ---
STUDY: ABDOMINAL ULTRASOUND - RIGHT UPPER QUADRANT REASON FOR VISIT: Female, 55 years old RUQ PAIN X 2 MONTHS -- HX OF HEPATIC CYSTS TECHNIQUE: Ultrasound evaluation of the right upper quadrant was performed with real-time and static jorge-scale imaging. TECHNICAL QUALITY: Adequate. COMPARISON: Comparison is made with prior study dated March 30, 2014. FINDINGS: Liver: The liver is mildly enlarged and measures 18.9 cm. There is increased echogenicity consistent with fatty infiltration. The bile ducts are within normal limits. There is hepatic color flow. The direction of portal flow is hepatopetal. Once again, 2 small cysts are seen in the right lobe of the liver and one small cyst in the left lobe. The largest cyst in the right lobe measures 1.7 cm x 1.9 cm x 1.2 cm. Gallbladder: Normal distended gallbladder. The gallbladder wall measures 2.8 mm. There is a negative sonographic Luna''s sign. There is no pericholecystic fluid. There are no gallstones. Common Bile Duct (C.B.D.): The common bile duct measures 4.3 mm. Pancreas: Normal size of the head, body and tail of the pancreas. There is increased echogenicity of the pancreas. There is no demonstrated pancreatic mass or cyst. Right Kidney: Normal size of the right kidney. The right kidney measures 9.2 cm x 6.5 cm x 4.2 cm. Normal renal cortex. The right cortex measures 1.0 cm. There is no demonstrated renal mass or cyst. There is no right hydronephrosis. US/Abdomen Limited IMPRESSION: Mild hepatomegaly with fatty infiltration of the liver. Stable hepatic cysts. Electronically Signed: Baljeet Luis, at 11:04 EDT , Service support ,
== END | disposition home or self-care (01) ==
LOC: US 09:51
PROVIDERS: PCP Family Medicine; Referring Provider Family Medicine; Visit Provider Family Medicine
DX: R10.11 Right upper quadrant pain (principal)
CPT/HCPCS: 76705

== ENCOUNTER 2020-06-03 09:20 | Outpatient (RCR) | payer BC, SELFPAY ==
[2019-11-27 08:10] VITALS: BMI 37.1
== END 2020-06-06 23:59 ==
LOC: NS 09:20
PROVIDERS: PCP Family Medicine; Visit Provider Student in an Organized Health Care Education/Training Program
DX: R63.5 Abnormal weight gain (principal); Z86.59 Personal history of other mental and behavioral disorders
CPT/HCPCS: 97802

== ENCOUNTER → 2020-06-12 09:49 | Outpatient (CLI) | payer BC, SELFPAY ==
[2019-11-27 08:10] VITALS: BMI 37.1
--- NOTE | 2020-06-12 09:52 | RAD_ITS ---
STUDY: X-RAY - PELVIS AND LEFT HIP REASON FOR EXAM: Female, 55 years old. left hip pain x 1 week -- bursitis TECHNIQUE: 3 views of the pelvis and hip. COMPARISON: None. FINDINGS: There is a non-specific bowel gas pattern. Normal visualized soft tissue structures. Normal bilateral iliac wings, sacroiliac joints and visualized sacrum. Normal bilateral superior and inferior pubic rami. Normal pubic symphysis. Normal bilateral ischial tuberosities. Normal visualized femoral head. Normal acetabulum. Normal hip joint. RAD/HIP, UNI W/ Pelvis 2-3 Views IMPRESSION: Normal x-ray examination of the pelvis and hip. Electronically Signed: Martin Garza MD at 19:04 EDT , Service support ,
== END ==
PROVIDERS: PCP Student in an Organized Health Care Education/Training Program; Referring Provider Nurse Practitioner Family; Visit Provider Nurse Practitioner Family
DX: M25.552 Pain in left hip (principal)
CPT/HCPCS: 73502

== ENCOUNTER 2020-06-17 14:26 | Outpatient (RCR) | payer BC, SELFPAY ==
[2019-11-27 08:10] VITALS: BMI 37.1
== END 2020-06-17 23:59 | disposition home or self-care (01) ==
LOC: NS 14:26
PROVIDERS: PCP Student in an Organized Health Care Education/Training Program; Visit Provider Student in an Organized Health Care Education/Training Program
DX: Z71.3 Dietary counseling and surveillance (principal); R63.5 Abnormal weight gain
CPT/HCPCS: 97803

== ENCOUNTER 2020-07-23 10:30 | Outpatient (RCR) | payer BC, SELFPAY ==
[2019-11-27 08:10] VITALS: BMI 37.1
--- NOTE | 2020-06-04 15:51 | HP.PTEVAL ---
Patient's Visit Information RYANNE RENTERIA is a 55 year old F referred to Physical Therapy by NATALY Lynn with a diagnosis of L/S spondylosis, arthropathy facet L/S. Date of Evaluation: 06/04/20 Physical Therapist: Jefferson Miles, DPT, OCS, CSCS - Visit Plan Frequency: 2x /Week Duration: 4-6 Weeks Plan: 2 weeks pool to teach program for patient to join(LE strength, core strength, HS adn quad stretches adn ITB stretches. Then can progress to gym or Home LE and core strength program per patient desire. - Subjective Has LBP chronically for years. Was on disability partially due to this. Has L hip bursiits after exercising in the pool at the [facility]. Had injections in LB R whcih is doing good. L LB and lateral hip are her main problems now. Hard time leading with L leg on steps adn getting up off floor. Too weak to get up and weaker lately. Pain is 5/10 intermittently and worse with steps. A.m. is wosrt adn sometimes in evening. LBP is 4/10 intermittently and worse with activitiy. Only exercises in water as she tolerates it best. Sleep is interrupted as she wakes up with L hip pain, sleeps on R side. Not employed. Spends day 3x/week at for swim ex class. Visits friends adn light housework. No regular exercise otherwise. Does basic ADLs and light housework, avoids carrying adn vaccuming. Spouse does these. No yard work due to pain. No falls. steps to enter into house no rail and does so slowly. - Pain L hip Pain Intensity (Out of 10): 1 Pain Intensity Range: 0, 5 LBP Pain Intensity (Out of 10): 0 Pain Intensity Range: 0, 4 - Objective Walks I but slow and slight L antalgia. Trasnfers chair and bed I withotu UE from chair. Steps are reciprocal and they require rails. L/S AROM limited moderately in ext adn min in flexion, SB min limited, no increased pain today. Posture is flat lordosis and forward head, some thoracic kyphosis. reflexes 1/3 patella adn achilles. Sensation wNL to gross light touch in LE. Strength LE 3 in hip abd and ext adn flexion, knee flex adn ext 3+ adn ankles 4-. Tender to touch B trochanters. - Balance Scores Functional Gait Assessment Score: 27 % Disability: 10.0000 CATSIB Score (Max score 120 seconds): 115 - Goals Goal 1:: I approp Pool and gym ex program to limit future pain Goal Time Frame: 4-6 Weeks Goal 2:: Pt report 50% decrease in pain to 2/10 at worst. Goal Time Frame: 4-6 Weeks Goal 3:: Oswestry score of <25 Goal Time Frame: 4-6 Weeks - Rehabilitation Potential Physical Therapy Diagnosis: LBP and lateral hip paina nd weakness. Rehabilitation Potential: Fair - Anticipated Interventions Patient/Client Instruction: Educate patient on: Condition, Plan of Care For the Purpose of:: To decrease pain, To improve muscle performance and motor function, To increase tolerance to activity/condition/position Therapeutic Exercise to Include: Strength training, Flexibilty training, Gait and locomotor training, Neuromotor development, In an aquatic setting, Passive ROM, Active ROM For the Purpose of:: To decrease pain, To increase ROM, To improve muscle performance and motor function, To increase tolerance to activity/condition/position Thank you for the opportunity to evaluate your patient. For Medicare and Medicare HMO plans, please review the plan of care and approve it. It will need to be FAXED BACK to us at [phone] for Medicare purposes. For Medicare only, by signing this I certify the plan of care. Please let me know if there are questions or concerns regarding this plan of care. Physician Signature: Date:
--- NOTE | 2020-06-30 12:26 | HP.PTREVAL_ITS ---
Madelin Granda, LEGAL SERVICE SPECIALIST-C, It has been my pleasure to treat RYANNE RENTERIA over the last 8 visits for L/S spondylosis, arthropathy facet L/S. Please see the progress note below for an update on the physical therapy plan of care! Subjective: Acclimated back to regular exercise in water. [facility]. Pain is bad in both hips. Exercises inw ater are easier. Pain management is going to get a shot. Stretching in water is easier. Sleeping is tough after a while due to pain and sleep mask. LBP currently 3/10 and in hips. Activity is fairlysedentary due to pain, avoids lawn mowing. Injections are pending. Objective/Function: LE strength 4-/5 without increased pain. Flex LE WNL and nice adn loose today. LB AROM ext slightly painful centrally, other motions not tight or painful. oVERALL DEFINTIELY BETTER AND HEADING IN THE RIGHT DIRECTION. Plan Plan: PT TO COTNINUE POOL EX AT LEAST 3X/WEEK I. IN CLINIC, PROGRESS TO LAND BASED MACHINE BASED EX FOR LE STRENGTH, CORE STRENGTH AND POSTURE. PROGRESS TO I MEMEBRSHIP ON MACHINES ABLE Goals Goal 1:: I approp Pool and gym ex program to limit future pain Goal Time Frame: 4-6 Weeks Goal Progress: Goal Met Goal 2:: Pt report 50% decrease in pain to 2/10 at worst. 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 Goal Time Frame: 4-6 Weeks Goal Progress: NEW GOAL Anticipated Interventions Patient/Client Instruction: Educate patient on: Condition, Plan of Care For the Purpose of:: To decrease pain, To improve muscle performance and motor function, To increase tolerance to activity/condition/position Therapeutic Exercise to Include: Strength training, Flexibilty training, Gait and locomotor training, Neuromotor development, In an aquatic setting, Passive ROM, Active ROM For the Purpose of:: To decrease pain, To increase ROM, To improve muscle performance and motor function, To increase tolerance to activity/condition/position Please do not hesitate to contact me at [phone] by phone or if you have questions or concerns regarding this new plan of care! Sincerely, Jefferson Miles, DPT, OCS, CSCS
--- NOTE | 2020-07-23 11:23 | HP.PTDCSUM_ITS ---
It has been my pleasure to treat RYANNE RENTERIA referred by YAMILETH Lynn, with the diagnosis of L/S spondylosis, arthropathy facet L/S for a total of 14 visit(s). Discharge Date: 07/23/20 Please see the following information for a summary of their discharge status. Subjective: Lower back is a little sore. Better mobility but still having pain. Also seeing a electronic calibration technician next week due to some abnormalities on my EKG. L hip Pain Intensity (Out of 10): 4 LBP Pain Intensity (Out of 10): 4 Neck pain Pain Intensity (Out of 10): 0 % Improvement: 55 Objective/Function: Completing independent water exercise routine. Good tolerance to lower extremity and postural strength in clinic. Goal 1:: I approp Pool and gym ex program to limit future pain Goal Progress: Goal Met Goal 2:: Pt report 50% decrease in pain to 2/10 at worst. Goal Progress: Progressing Goal 3:: Oswestry score of <25 Goal Progress: Goal Met Goal 4:: I appropriate gym program without increasing pain for half-way management. Goal Progress: NEW GOAL Plan: IN CLINIC, PROGRESS TO LAND BASED MACHINE BASED EX FOR LE STRENGTH, CORE STRENGTH AND POSTURE. PROGRESS TO I MEMEBRSHIP ON MACHINES ABLE If there are questions or concerns regarding this patient's physical therapy, please feel free to call me at [phone]. Thank you for the referral of this patient. Sincerely, Jefferson Miles, DPT, OCS, CSCS
== END 2020-07-23 19:00 | disposition home or self-care (01) ==
LOC: PT 10:30
PROVIDERS: PCP Student in an Organized Health Care Education/Training Program; Referring Provider Family Medicine; Visit Provider Nurse Practitioner Family
DX: M47.817 Spondylosis without myelopathy or radiculopathy, lumbosacral region (principal); M51.37 Other intervertebral disc degeneration, lumbosacral region; M48.07 Spinal stenosis, lumbosacral region; M46.96 Unspecified inflammatory spondylopathy, lumbar region; M25.551 Pain in right hip
CPT/HCPCS: 97110; 97113; 97162; 97164

== ENCOUNTER → 2020-08-14 | Outpatient (CLI) | payer BC, SELFPAY ==
[2019-11-27 08:10] VITALS: BMI 37.1
--- NOTE | 2020-08-14 13:12 | RAD_ITS ---
STUDY: X-RAY CHEST REASON FOR EXAM: Female, 55 years old. PULMONARY HTN TECHNIQUE: PA and lateral views of the chest. COMPARISON: Prior study of 03/24/2017 FINDINGS: There is a limited inspiration. There is no demonstrated pleural abnormality. Normal size heart. Normal mediastinum and lori. Normal visualized pulmonary arteries. Normal visualized aortic arch and descending thoracic aorta. Normal visualized thoracic spine. Normal visualized ribs, clavicles, and shoulders. There is no demonstrated abnormality of the visualized soft tissue structures of the upper abdomen. RAD/Chest PA and Lateral IMPRESSION: Limited inspiration. No acute cardiopulmonary disease process is seen. Electronically Signed: Jose Bal MD at 17:59 EDT , Service support ,
== END | disposition home or self-care (01) ==
LOC: MTRAD 13:12
PROVIDERS: PCP Student in an Organized Health Care Education/Training Program; Referring Provider Internal Medicine Pulmonary Disease; Visit Provider Internal Medicine Pulmonary Disease
DX: I27.20 Pulmonary hypertension, unspecified (principal)
CPT/HCPCS: 71046

== ENCOUNTER → 2020-10-17 15:27 | Outpatient (CLI) | payer BC, SELFPAY ==
[2019-11-27 08:10] VITALS: BMI 37.1
--- NOTE | 2020-10-17 15:30 | RAD_ITS ---
STUDY: X-RAY - LEFT SHOULDER REASON FOR EXAM: Female, 55 years old. Left shoulder pain. Limited range of motion. TECHNIQUE: 4 view(s) of the shoulder. COMPARISON: Chest, 03/24/2017. CT of the chest, 03/18/2018. FINDINGS: Normal glenohumeral articulation. Normal acromioclavicular joint. Normal acromion. There is no acute fracture, dislocation or destructive osseous pathology. Normal humeral head and visualized proximal humerus. The soft tissue structures are unremarkable. There are healed fractures of the left lateral ribs. Normal visualized pulmonary apex. RAD/Shoulder min 2 Views IMPRESSION: 1. No acute abnormality of the left shoulder. No major interval change when compared to the previous examination. 2. Interval left rib fractures when compared to the prior chest film. Healed rib fractures are noted on CT of the chest dated 03/18/2018. 3. Prior chest film. Electronically Signed: Brodie Morfin DO at 16:18 EST Tel [phone], Service support ,
== END ==
PROVIDERS: PCP Student in an Organized Health Care Education/Training Program; Referring Provider Student in an Organized Health Care Education/Training Program; Visit Provider Student in an Organized Health Care Education/Training Program
DX: M25.512 Pain in left shoulder (principal)
CPT/HCPCS: 73030

== ENCOUNTER 2020-12-02 09:30 | Outpatient (RCR) | payer BC, SELFPAY ==
[2019-11-27 08:10] VITALS: BMI 37.1
--- NOTE | 2020-11-04 15:06 | HP.PTEVAL_ITS ---
Patient's Visit Information RYANNE RENTERIA is a 55 year old F referred to Physical Therapy by Dr. Agapito Saucedo DO with a diagnosis of SHOULDER PAIN. Date of Evaluation: 11/04/20 Physical Therapist: Sundar Mantilla, PT, Cert MDT, OCS - Visit Plan Frequency: 2x /Week Duration: 4 Weeks Plan: PT INTERVENTIONS POSTRAL EX'S ,RTC/SCAPULAR STRENGTHENING ,MODALTIES - Subjective This 55 y/o female presenst to physical therapy with left shoulder pain. Patinet has had left shoulder pain abut one year. Patient had inscidous onset of left shoulder pain . Patient see Reumatologist for left shoulder pain. Patient but injections dont help left shoulder pain. Patient pain located on acromiom . Aggaravting factors lifting with OH activities ,lifting , affects ADL's and housework tasks. Allevaiting factors injections,rest. Denies parathesia/tingling .Patient had x-rays of left shoulder 2 weeks ago. Patient able to sleeping okay. Patient pain affects ADLS' and houseworks tasks. Patient symptoms affects QOL. SOCIAL: single. VOCATION:disability - Pain Left Shoulder Pain Intensity (Out of 10): 4 Pain Intensity Range: 10 - Objective POSTURE: mild foward posture rounded shoulders head foward. PALAPTION: tender AC joint. NEURO: intact, denies parathesia/tingling. AROM: shoulder flexion 140 degrees,abduction 130 degrees in scapation,ER 90 degrees. MMT: RTC 4/5 ,supraspinatous 4-/5,deltoid 4-/5. CAPSULAR RESTRICTION: WFL. SCAPULAR HUMERAL FUNCTION : 1:1. PROM: SHOULDER FLEXION 160 DEGREES,ABDUCTION 160 DEGREES - Special Tests L Shoulder External Rotation Lag Test - RC Tear: Negative L Shoulder Supine Impingement Test - RC Tear: Negative L Shoulder Lift Off Test - Subscapular Tear: Negative L Shoulder Drop Sign - IS Test: Negative L Shoulder Empty Can - SS: Positive L Shoulder Belly Press - SupScap: Negative L Shoulder Neer - Impingement: Positive L Shoulder Smith Kamar - Impingement: Positive - Goals Goal 1:: I with HEP Goal Time Frame: 4-6 Weeks Goal 2:: Improve posture for ADL's Goal Time Frame: 4-6 Weeks Goal 3:: Decrease left shoulder pain by 50% or > to improve function. Goal Time Frame: 4-6 Weeks Goal 4:: Patient increase left shoulder ROM symmtrical left to right WFL with min to no pain. Goal Time Frame: 4-6 Weeks Goal 5:: Patient to increase quick dash by 5 points or > to improve QOL and function. Goal Time Frame: 4-6 Weeks - Rehabilitation Potential Physical Therapy Diagnosis: Patient has left shoulder pain with postive signs of impingement with pain with motion affects ADL's and housework tasks thus benifit from skilled PT Rehabilitation Potential: Good - Anticipated Interventions Patient/Client Instruction: Educate patient on: Condition, Plan of Care For the Purpose of:: To decrease pain, To increase ROM, To improve muscle performance and motor function, To improve ability to perform ADL's, To increase tolerance to activity/condition/position, To improve performance and independen ce with ADL's, To improve ability of physical actions for home/community/work/leisure, To increase flexibility/ROM Therapeutic Exercise to Include: Strength training, Postural training, Flexibilty training, Passive ROM, Active ROM For the Purpose of:: To decrease pain, To increase ROM, To improve muscle performance and motor function, To improve ability to perform ADL's, To improve ability of physical actions for home/community/work/leisure, To improve health of tissue, To decrease soft tissue restriction, To increase flexibility/ROM, To improve ability to perform tasks related to life management TENS: Yes IF ES: Yes Cryotherapy (ice pack, ice massage): Yes Thermo therapy (hot pack): Yes Ultrasound (thermal/non thermal): Yes For the Purpose of:: To decrease pain, To improve nutrient delivery to tissue, To increase oxygenation perfusion, To improve health of tissue, To decrease soft tissue restriction Thank you for the opportunity to evaluate your patient. For Medicare and Medicare HMO plans, please review the plan of care and approve it. It will need to be FAXED BACK to us at [phone] for Medicare purposes. For Medicare only, by signing this I certify the plan of care. Please let me know if there are questions or concerns regarding this plan of care. Physician Signature: Date:
--- NOTE | 2021-04-01 09:58 | HP.PT.NRP ---
RYANNE RENTERIA was seen in my office for initial evaluation on 11/04/20. The following Plan of Care was established for this patient: Initial Frequency: 2x /Week Initial Duration: 4 Weeks Patient/Client Instruction: Educate patient on: Condition, Plan of Care For the Purpose of:: To decrease pain, To increase ROM, To improve muscle performance and motor function, To improve ability to perform ADL's, To increase tolerance to activity/condition/position, To improve performance and independence with ADL's, To improve ability of physical actions for home/community/work/leisure, To increase flexibility/ROM Therapeutic Exercise to Include: Strength training, Postural training, Flexibilty training, Passive ROM, Active ROM For the Purpose of:: To decrease pain, To increase ROM, To improve muscle performance and motor function, To improve ability to perform ADL's, To improve ability of physical actions for home/community/work/leisure, To improve health of tissue, To decrease soft tissue restriction, To increase flexibility/ROM, To improve ability to perform tasks related to life management TENS: Yes IF ES: Yes Cryotherapy (ice pack, ice massage): Yes Thermo therapy (hot pack): Yes Ultrasound (thermal/non thermal): Yes For the Purpose of:: To decrease pain, To improve nutrient delivery to tissue, To increase oxygenation perfusion, To improve health of tissue, To decrease soft tissue restriction This patient was last seen in our office . Pertinent comments regarding their Physical therapy will appear below: Patient seen for shoulder pain for RTC/SCAPULAR STRENGTHENING ,POSTURAL EX'S AND MODALTIES At this point I will be discontinuing this patient from physical therapy. I would be happy to see this patient again in the future if found appropriate by the physician. Thank you! Sundar Mantilla, PT, Cert MDT, OCS
== END 2020-12-02 19:00 | disposition home or self-care (01) ==
LOC: PT 09:30
PROVIDERS: PCP Student in an Organized Health Care Education/Training Program; Referring Provider Student in an Organized Health Care Education/Training Program; Visit Provider Student in an Organized Health Care Education/Training Program
DX: M25.519 Pain in unspecified shoulder (principal)
CPT/HCPCS: 97014; 97032; 97035; 97110; 97162; G0283

== ENCOUNTER 2020-12-13 12:07 | Emergency (ER) | payer BC, SELFPAY ==
[2020-12-13 12:10] VITALS: BP 109/67; PULSE 71; RESP 18; TEMP 36; O2SAT 99; BMI 37.9
--- NOTE | 2020-12-13 12:38 | CT_ITS ---
STUDY: CT ABDOMEN AND PELVIS WITH CONTRAST REASON FOR EXAM: Female, 55 years old. LUQ pain, nausea, vomiting, diarrhea. 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 RADIATION DOSAGE (If Supplied By Facility): CTDIvol = ( 17.00 ) mGy, DLP = ( 1732.28 ) mGycm TECHNIQUE: Transaxial images were obtained from the dome of the diaphragm to the symphysis pubis without oral contrast. IV 100mL Isovue-300 was administered. Sagittal and coronal images were reconstructed. Individualized dose optimization techniques were used for this CT. COMPARISON: November 19, 2016 CT scan abdomen and pelvis, CT chest March 18, 2018. FINDINGS: There are old left lower rib fractures. There is no visualized focal infiltrate. The visualized portions of the heart are within normal limits. There is a a focal low attenuation within the right hepatic lobe measuring 1.5 cm stable since prior study. There is a small cyst in the left hepatic lobe measuring 7 mm similar to the prior study. Normal gallbladder and extrahepatic biliary system. Normal spleen. Normal pancreas. Normal bilateral adrenal glands. There is mild right renal atrophy with scarring in the superior aspect of the right-sided perinephric fat. 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 There is no visualized hydronephrosis. Normal left kidney. Normal visualized stomach. There mildly distended loops of small bowel. There is a greater caliber of the colon with [id number] stool and gas. The appendix is visualized and appears normal. Normal abdominal aorta. Normal inferior vena cava. There are persistent small mesenteric lymph nodes. Normal urinary bladder. There is a stable appearance of the uterus with a deviated asymmetric appearance with probable underlying fibroid. Normal abdominal wall. There are diffuse degenerative changes of the visualized lumbar spine. CT/Abdomen/Pelvis W IV Cont ONLY IMPRESSION: Constipation. There is minimal distention of the small bowel which may represent mild ileus possible early gastroenteritis. Small mesenteric lymph nodes similar to prior study. No hydronephrosis. Right renal cortical thinning postoperative change or scarring. Stable hepatic cysts. Stable uterus with asymmetry probable small fibroids. Old left lower rib fractures similar to March 18, 2018 CT chest. Electronically Signed: Cady Holloway MD at 14:10 EST Tel , Service support ,
--- NOTE | 2020-12-13 12:39 | ED.DCSUM_ITS ---
History of Present Illness Chief Complaint: Abd Pain Informant: Patient, Family Narrative: 55-year-old female presenting with left upper quadrant abdominal pain, nausea/vomiting, diarrhea. Patient states this started yesterday with abdominal pain. She states it felt like gas and then she started to have diarrhea. Patient states today she vomited one time. Patient states that about 2 and half weeks ago she had viral symptoms of a cough/cold and was tested for Covid but was negative. She has not had a fever, chills, myalgias, loss of taste or smell. She denies shortness of breath. She does not have any chest pain. Urinary complaints. Past Medical History - Allergies and Home Meds Allergies/Adverse Reactions: Allergies Sulfa (Sulfonamide Antibiotics) Adverse Reaction (Verified 12/13/20 12:10) Rash Primary Care Physician: Agapito Saucedo DO [Primary Care Provider] - Prior records reviewed: Yes Past Medical History: - - Pretension, degenerative disc disease Surgical History: noncontributory Lives: Spouse/ Significant Other Smoking Status: Former smoker Alcohol: None Drugs: None Review of Systems General: Denies: Chills, Fever, Sweats Eyes: Denies: Visual changes - bilaterally, Diplopia ENT: Denies: Rhinorrhea, Sore throat Cardiovascular: Denies: Chest pain, Palpitations Respiratory: Denies: Dyspnea, Cough, Dyspnea on exertion Gastrointestinal: Reports: Abdominal pain, Nausea, Vomiting, Diarrhea. Denies: Constipation Genitourinary: Denies: Dysuria, Hematuria Musculoskeletal: Denies: Myalgias, Arthralgias Skin: Denies: Rash, Abscess Neurological: Denies: Headache, Weakness Psych: Denies: Depression, Anxiety Physical Exam Vital Signs/Narrative: Vital Signs Temp Pulse Resp BP Pulse Ox 12/13/20 12:10 96.8 F L 71 18 109/67 99 Inital Vital Signs reviewed: Yes General: Well nourished, No Acute Distress Head: Normocephalic Eyes: Perrl, EOMI. Negative for: Scleral icterus ENT: Moist mucous membranes, No rhinorrhea Cardiovascular: Regular rate, Regular rhythm Respiratory: No distress, CTA bilaterally Abdomen: Soft, Nondistended, Tender - Tenderness to palpation left upper and left lower quadrant. Nonperitoneal abdomen. Back: Nontender. Negative for: CVA tenderness Extremities: Nontender, No edema Skin: Normal color, No rash. Negative for: Cyanosis, Diaphoresis Neurological: Alert, Oriented x3, Cranial nerves II-XII grossly intact Psychological: Normal affect, Normal Mood Diagnostic/Tx/Re-eval Clinical Impression(s) from Imaging Studies Abdomen/Pelvis CT 12/13/20 12:38 IMPRESSION: Constipation. There is minimal distention of the small bowel which may represent mild ileus possible early gastroenteritis. Small mesenteric lymph nodes similar to prior study. No hydronephrosis. Right renal cortical thinning postoperative change or scarring. Stable hepatic cysts. Stable uterus with asymmetry probable small fibroids. Old left lower rib fractures similar to March 18, 2018 CT chest. Electronically Signed: Cady Holloway MD at 14:10 EST Tel , Service support , Laboratory Data 12/13/20 12/13/20 12/13/20 12:45 12:45 12:50 WBC 7.1 RBC 3.99 L Hgb 12.7 Hct 38.4 MCV 96.2 MCH 31.8 MCHC 33.1 RDW Std Deviation 43.7 RDW Coeff of Bravo 12.3 Plt Count 222 MPV 11.0 Immature Gran % (Auto) 0.600 Neut % (Auto) 53.2 Lymph % (Auto) 32.4 [place] % (Auto) 9.3 Eos % (Auto) 3.8 Baso % (Auto) 0.7 Absolute Neuts (auto) 3.8 Absolute Lymphs (auto) 2.31 Nucleated RBC % 0 Sodium 139 Potassium 3.8 Chloride 107 Carbon Dioxide 28.0 Anion Gap 4 L BUN 12 Creatinine 0.78 Estim Creat Clear Calc 73.33 Est GFR (MDRD) Af Amer 98 Est GFR (MDRD) Non-Af 81 BUN/Creatinine Ratio 15.3 Glucose 89 Calcium 8.9 Total Bilirubin 0.40 AST 19 ALT 23 Alkaline Phosphatase 75 Total Protein 6.5 Albumin 3.2 Globulin 3.3 Albumin/Globulin Ratio 1.0 Lipase 69 L Urine Color Yellow Urine Clarity Clear Urine pH 5.0 Ur Specific [place] 1.025 Urine Protein 15 H Urine Glucose (UA) Normal Urine Ketones 5 H Urine Occult Blood Negative Urine Nitrite Negative Urine Bilirubin Negative Urine Urobilinogen Normal Ur Leukocyte Esterase 25 H Urine RBC 0 SEEN Urine WBC 0 SEEN Ur Squamous Epith Cells 0 SEEN Urine Bacteria 0 SEEN Urine Mucus 0 SEEN - Medical Decision Making 55-year-old female presenting with diarrhea, nausea vomiting, left-sided abdominal pain. Patient given morphine and Zofran with good control of her pain and nausea. Blood work-up was normal. CT of the abdomen pelvis with IV contrast obtained shows constipation. Patient states he does have constipation. Review the medical record shows she is on Linzess. Given patient's stable vital signs, normal work-up, normal CT she will be discharged home. Impression: 1. Nausea/vomiting 2. Diarrhea resolved 3. Constipation ED Disposition - Plan for ED Patient: Disposition: Home or Assisted Living Instructions: ED Constipation (Adult), ED Vomiting and Diarrhea ... Prescriptions: Ondansetron [Zofran Odt] 4 mg PO Q8H PRN PRN #10 tab PRN Reason: Nausea Transmission Status: Received by [id number] Referrals: Agapito Saucedo DO [Primary Care Provider] -
[2020-12-13 12:54] LABS: Bacteria 0 SEEN /hpf (None Seen); Mucous, Urine 0 SEEN /hpf (<or=2+); Red Blood Cells-Urine 0 SEEN /hpf (0-5); Squamous Epithelial Cells - UA 0 SEEN /hpf (5-10); White Blood Cells 0 SEEN /hpf (0-5)
[2020-12-13 12:54] LABS: Absolute Lymphocyte Count 2.31 X10^3/uL (0.83-4.51); Absolute Neutrophil Count 3.8 X10^3/uL (2.0-7.7); Basophil# 0.05 X10^3/uL; Basophil% 0.7 % (0-1); Eosinophil# 0.27 X10^3/uL; Eosinophils% 3.8 % (0-5); Hematocrit 38.4 % (37-47); Hemoglobin 12.7 g/dL (12.0-15.0); Lymphocyte # 2.31 X10^3/ul (4.0); Lymphocyte % 32.4 % (19-41); Mean Corp Hgb Conc 33.1 g/dL (32-36); Mean Corpuscular Hgb 31.8 pg (27.0-32.0); Mean Corpuscular Volume 96.2 fL (81-99); Monocyte# 0.66 X10^3/uL; Monocyte% 9.3 % (0-10); NRBC Flagged by Analyzer 0 % (0-5); Neutrophil % 53.2 % (47-70); Platelet Count 222 K/mm3 (150-450); RBC Distribution Width CV 12.3 % (11.6-14.6); RBC Distribution Width SD 43.7 fl (35.1-43.9); Red Blood Count 3.99 M/mm3 (4.2-5.4); White Blood Count 7.1 K/mm3 (4.4-11.0)
[2020-12-13 12:57] LABS: Color, Urine Yellow (Yellow); Glucose, Dipstick Normal (Normal); Ketone-Dipstick 5 mg/dl (Negative); Leukocyte Esterase-Dipstick 25 /ul (Negative); Nitrite-Dipstick Negative (Negative); Occult Blood-Urine Negative /ul (Negative); Protein-Dipstick 15 mg/dl (Negative); Specific Gravity, Urine 1.025 (1.002-1.030); Urine Bilirubin Dipstick Negative (Negative); Urine Clarity Clear (Clear); Urine Urobilinogen Normal (Normal)
[2020-12-13] MEDS: 0.9% Normal Saline 1,000 ML 1000 ML IV (13:06)
[2020-12-13] MEDS: Morphine 4 MG/ML Syringe IV (13:07)
[2020-12-13] MEDS: Ondansetron 4 MG/2 ML Vial IV (13:07)
[2020-12-13 13:08] LABS: AST(SGOT) 19 U/L (15-37); Alanine Aminotransfer ALT/SGPT 23 U/L (13-56); Albumin, Serum 3.2 g/dL (3.2-5.0); Alkaline Phosphatase 75 U/L (45-117); Anion Gap 4 (5-15); BUN 12 mg/dL (7-18); BUN/Creat Ratio 15.3 RATIO (10-20); Calcium,Total 8.9 mg/dL (8.5-10.1); Chloride 107 mmol/L (98-107); Creatinine, Serum 0.78 mg/dL (0.55-1.02); EST Glomerular Filtration Rate 81 mL/min (>60); Est Glom Filt Rate - Afr Amer 98 mL/min (>60); Estimated Creatinine Clearance 73.33 ml/min; Globulin 3.3 g/dL (2.2-4.2); Glucose 89 mg/dL (74-106); Lipase 69 U/L (73-393); Potassium 3.8 mmol/L (3.5-5.1); Protein, Total 6.5 g/dL (6.4-8.2); Sodium Level 139 mmol/L (136-145)
== END 2020-12-13 15:21 | disposition home or self-care (01) ==
PROVIDERS: Emergency Provider Student in an Organized Health Care Education/Training Program; PCP Student in an Organized Health Care Education/Training Program
DX: K59.00 Constipation, unspecified (principal); R11.2 Nausea with vomiting, unspecified; R19.7 Diarrhea, unspecified; Z87.891 Personal history of nicotine dependence
CPT/HCPCS: 74177; 80053; 81001; 83690; 85025; 96361; 96374; 96375; 99283; J7030; Q9967; A4216; J2405

== ENCOUNTER 2021-01-20 14:51 | Outpatient (RCR) | payer MEDICARE, OTHER, SELFPAY ==
[2020-12-26 08:46] VITALS: BMI 37.9
[2021-01-20] MEDS: COVID-19 VACC, MRNA(PFIZER)/PF 30 MCG/0.3 ML SYRINGE IM (12:51)
[2021-02-10] MEDS: COVID-19 VACC, MRNA(PFIZER)/PF 30 MCG/0.3 ML SYRINGE IM (12:36)
== END 2021-02-02 23:59 ==
LOC: IMMUN 14:51
PROVIDERS: PCP Student in an Organized Health Care Education/Training Program; Visit Provider Family Medicine
DX: Z23 Encounter for immunization (principal)
CPT/HCPCS: 0001A; 0002A; 91300

== ENCOUNTER → 2021-04-21 07:01 | Outpatient (CLI) | payer MEDICARE, SELFPAY ==
[2021-02-19 09:58] VITALS: BMI 38.0
--- NOTE | 2021-04-21 18:20 | STRESSREP ---
Stress Test Report Pharmacologic myocardial perfusion stress test. 56-year-old lady with a history of chest pain. Stress protocol: Resting EKG demonstrates normal sinus rhythm with a rate of 84 bpm normal intervals are noted resting blood pressure is 1 28 over 80 mmHg. 0.4 mg of regadenoson was infused per usual protocol, followed by rapid intravenous saline flush injection continuous EKG monitoring was performed. At rest there were no ST or T wave changes noted to suggest abnormal flow reserve and at peak infusion nonspecific ST changes were noted with did not meet the criteria for ischemia. No clinical angina was noted. The final blood pressure was 124/70 mmHg. Myocardial perfusion protocol. 12.0 mCi of technetium 99m sestamibi was injected at rest. 0.4 mg of regadenoson was infused per usual protocol. At peak infusion 34.8 mCi of technetium 99m sestamibi was injected stress images were obtained stress and rest images were reconstructed and compared in the short axis vertical long horizontal long axis. Gated images were also obtained to Perfusion SPECT analysis: Review of the stress images demonstrate normal uptake of tracer noted in all areas of the myocardium. The resting images similarly demonstrate normal uptake of tracer noted in all areas of the myocardium. No areas of reversibility are noted to suggest ischemia no previous infarct is noted. Gated SPECT analysis: The gated ejection fraction is noted to be 85%. Conclusion: Normal pharmacologic myocardial perfusion stress test. Preserved ejection fraction.
== END ==
PROVIDERS: PCP Student in an Organized Health Care Education/Training Program; Referring Provider Internal Medicine Cardiovascular Disease; Visit Provider Internal Medicine Cardiovascular Disease
DX: R07.9 Chest pain, unspecified (principal); I34.1 Nonrheumatic mitral (valve) prolapse; I34.0 Nonrheumatic mitral (valve) insufficiency; I47.1 Supraventricular tachycardia; I49.1 Atrial premature depolarization; I49.3 Ventricular premature depolarization
CPT/HCPCS: 78452; 93017; A9500; A4216; J2785

== ENCOUNTER → 2021-05-06 13:22 | Outpatient (CLI) | payer MEDICARE, SELFPAY ==
[2021-02-19 09:58] VITALS: BMI 38.0
[2021-05-06 14:50] LABS: Thyroid Stim Hormone (TSH) 3.44 uIU/mL (0.358-3.74)
== END ==
PROVIDERS: PCP Student in an Organized Health Care Education/Training Program; Referring Provider Student in an Organized Health Care Education/Training Program; Visit Provider Student in an Organized Health Care Education/Training Program
DX: I47.1 Supraventricular tachycardia (principal); R00.2 Palpitations; R60.9 Edema, unspecified; R63.5 Abnormal weight gain
CPT/HCPCS: 36415; 84443

== ENCOUNTER → 2021-05-08 09:49 | Outpatient (CLI) | payer MEDICARE, SELFPAY ==
[2021-02-19 09:58] VITALS: BMI 38.0
--- NOTE | 2021-05-08 09:51 | BI_ITS ---
MAMMOGRAPHY - BILATERAL SCREENING REASON FOR EXAM: Female, 56 years old. Routine annual screening examination. PERTINENT HISTORY: Sister with breast cancer. TECHNIQUE: Digital bilateral breast kasia (3D mammographic acquisition) in the CC and MLO projections. 2-D mediolateral oblique (MLO) and craniocaudad (CC) views of both breasts were obtained. CAD: Full Field Digital Mammography with Computer Added Detection was performed. COMPARISON: Comparison is made with prior outside examination dated 05/06/2020 and 04/25/2019. FINDINGS: Breast Composition: The breasts are heterogeneously dense, which may obscure small masses. There are no dominant masses or suspicious calcifications. Stable benign-appearing bilateral axillary lymph nodes. No other significant abnormalities are identified. There has been no significant change since the prior study. BI/SCRN MAMM (CAD)W/KASIA BILAT IMPRESSION: Stable bilateral screening mammogram. Yearly follow-up mammogram recommended. (A) ASSESSMENT CATEGORY: BIRADS Category 2: Benign. A letter regarding these results will be sent to the patient by the facility within 30 days. Approximately 10% of breast cancers are not detected by mammography. A normal mammogram should not delay biopsy of a clinically suspicious abnormality. [id number] Electronically Signed: Baljeet Luis MD at 11:08 EDT , Service support ,
== END ==
PROVIDERS: PCP Student in an Organized Health Care Education/Training Program; Referring Provider Student in an Organized Health Care Education/Training Program; Visit Provider Student in an Organized Health Care Education/Training Program
DX: Z12.31 Encounter for screening mammogram for malignant neoplasm of breast (principal)
CPT/HCPCS: 77063; 77067

== ENCOUNTER 2021-06-22 13:55 | Emergency (ER) | payer MEDICARE, SELFPAY ==
[2021-02-19 09:58] VITALS: BMI 38.0
[2021-06-22 13:55] VITALS: BP 114/78; PULSE 67; RESP 18; TEMP 36.4; O2SAT 95; BMI 36.6
[2021-06-22 13:58] VITALS: BP 114/78; PULSE 67; RESP 18; TEMP 36.4; O2SAT 95
--- NOTE | 2021-06-22 14:10 | EX.ED.DYSGE1 ---
HPI History of Present Illness Chief Complaint: Fever Informant: patient Narrative Narrative: Patient is a 56-year-old female who presents to the emergency department for fever and sore throat. Her symptoms have been present over the past 4 days. She states that her temperature did go up to 103. She has been taking Tylenol which has been helping. She did have a Covid test at the onset of symptoms which was negative. She has been vaccinated for this. She denies any cough, shortness of breath. No abdominal pain or vomiting. She did have some diarrhea at the onset but this since resolved. She denies any headache, stiff neck. No rashes. She did have some burning with urination 2 days prior but this also resolved. She denies any back pain. No known sick contacts but she states she did go to [place] recently. [facility] Medical History (Updated 06/22/21 @ 14:[address] Neymar Chairez, ) Anxiety Arthritis Back problem Depression GERD (gastroesophageal reflux disease) Hematuria History of emotional problems Non-rheumatic mitral regurgitation Nonrheumatic mitral (valve) prolapse ARLEN (obstructive sleep apnea) Osteoarthritis Premature atrial contraction Premature ventricular contraction Pulmonary hypertension SVT (supraventricular tachycardia) Tachycardia Home Medications bupropion HCl 300 mg PO DAILY 02/15/14 [History Last Taken Unknown] diclofenac sodium 1 % topical gel 2 g TOPICAL ONCE PRN 11/12/20 [History Last Taken Unknown] duloxetine 60 mg capsule,delayed release 90 mg PO DAILY 11/12/20 [History Last Taken Unknown] gabapentin 100 mg capsule 300 mg PO TID cap 11/12/20 [History Last Taken Unknown] lorazepam 1 mg tablet 1 mg PO TID PRN 11/12/20 [History Last Taken Unknown] quetiapine 200 mg tablet 200 mg PO QHS 11/12/20 [History Last Taken Unknown] linaclotide 145 mcg PO DAILY 12/13/20 [History Last Taken Unknown] albuterol sulfate 90 mcg/actuation aerosol inhaler 2 puff INHALATION Q4H PRN gm 01/27/21 [History Last Taken Unknown] baclofen 10 mg tablet 10 mg PO DAILY 01/27/21 [History Last Taken Unknown] magnesium oxide 400 mg PO DAILY 01/27/21 [History Last Taken Unknown] pantoprazole 40 mg tablet,delayed release 40 mg PO DAILY 01/27/21 [History Last Taken Unknown] levomefolate calcium 15 mg tablet 15 mg PO DAILY 02/19/21 [History Last Taken Unknown] turmeric root extract 538 mg capsule 538 mg PO DAILY 02/19/21 [History Last Taken Unknown] metoprolol succinate 50 mg tablet,extended release 24 hr 50 mg PO DAILY #90 tab 04/20/21 [Rx Last Taken Unknown] Allergy/AdvReac Type Severity Reaction Status Date / Time adhesive tape Allergy rash Verified 06/22/21 13:59 Sulfa (Sulfonamide AdvReac Rash Verified 06/22/21 13:59 Antibiotics) Family History Mother Anxiety Arthritis Depression Mental disorder Osteoporosis Atrial fibrillation Sister Breast cancer Brother Diabetes Father CAD (coronary artery disease) History of coronary artery bypass surgery Atrial fibrillation Other Hypertension Melanoma Surgical History History of bladder surgery (~1971) History of tonsillectomy (~2008) Hx of arthroscopy of right knee (~2017) Social History Smoking Status: Never smoker alcohol intake: current alcohol intake frequency: a few times a month Alcohol type: beer substance use type: does not use caffeine: Yes Type: coffee Number of servings: 1 what type of physical activity do you participate in: swimming frequency: 1-2 times per week ROS ROS ED Constitutional Constitutional ED: Reports chills and fever(s) Eyes Eyes: Denies change in vision ENT ENT ED: Reports sore throat; Denies epistaxis or rhinorrhea Cardiovascular Cardiovascular: Denies chest pain or palpitations Respiratory/Chest Respiratory/Chest: Denies cough, dyspnea or dyspnea on exertion Gastrointestinal Gastrointestinal: Denies abdominal pain, diarrhea, nausea or vomiting Genitourinary Genitourinary ED: Reports dysuria; Denies hematuria or urinary frequency Musculoskeletal Musculoskeletal: Denies back pain or neck pain Integumentary Denies rash Neurologic Neurologic: Denies dizziness, headache(s) or weakness EXAM Physical Exam Const Vital Signs: 06/22/21 13:55 06/22/21 13:58 06/22/21 14:01 Temperature 97.6 F L 97.6 F L Temperature Source Temporal Temporal Pulse Rate 67 67 Respiratory Rate 18 18 Respiratory Effort Normal Non-Labored Respiratory Pattern Normal Blood Pressure 114/78 114/78 Blood Pressure Mean 90 90 Pulse Ox 95 95 Oxygen Delivery Method Room Air Room Air 06/22/21 15:07 Temperature Temperature Source Pulse Rate 71 Respiratory Rate 18 Respiratory Effort Respiratory Pattern Blood Pressure 121/79 H Blood Pressure Mean Pulse Ox 99 Oxygen Delivery Method Positive well nourished and well developed General Appearance ED: well developed and NAD HEENT Reports normocephalic, head/scalp atraumatic, TM's clear and moist mucous membranes HEENT Narrative: Posterior oropharynx is erythematous without any obvious abscess or lesions. Tympanic Membrane ED: Yes TM's clear Eyes PERRL and EOMs intact bilaterally Neck no lymphadenopathy and supple General: Negative for tenderness Chest Wall inspection of chest normal Resp normal respiratory effort and clear to auscultation bilaterally Auscultation: Negative for rales, rhonchi or wheezes Cardio regular rate, regular rhythm and no murmurs GI normal to inspection, nondistended, normoactive bowel sounds and non-tender Palpation: soft; Negative for guarding or rebound tenderness present Back/Spine no CVA tenderness Cervical Spine: Negative for cervical spine tenderness Extremity normal to inspection General Extremety ED: Negative for edema or tenderness General Extremity: Negative for edema Neuro Sensorium / Orientation: alert Motor Exam: strength 5/5 throughout Psych mental status grossly normal Skin no rashes or lesions noted MDM MDM MDM Narrative Medical decision making narrative: Patient presents to the emergency department for fever, sore throat. She had dysuria a few days prior. On arrival to the emergency department vital signs within normal limits. She is currently afebrile. She has been responding well to Tylenol. She otherwise appears well on exam. I do not feel lab work is indicated at this time. Will check a strep swab as well as urinalysis. I do not feel x-rays necessary she has no cough, shortness of breath. She has already been swabbed for Covid and has been negative. Urine does not reveal any evidence of infection, strep swab was negative. This time will recommend symptomatic treatment for most likely viral pharyngitis. She is to follow-up with her PCP. Return precautions are reviewed. She understands and is agreeable this plan. Discharged home in stable condition. Recommend symptomatic treatment in the meantime. Lab Data Labs: Laboratory Results - last 24 hr 06/22/21 14:20 Urine Color Straw Urine Clarity Clear Urine pH 6.5 Ur Specific [place] 1.010 Urine Protein Negative Urine Glucose (UA) Normal Urine Ketones Negative Urine Occult Blood Negative Urine Nitrite Negative Urine Bilirubin Negative Urine Urobilinogen Normal Ur Leukocyte Esterase 25 H Urine RBC 0 SEEN Urine WBC 0-5 SEEN Ur Squamous Epith Cells 0-5 SEEN Urine Bacteria 0 SEEN Urine Mucus 0 SEEN Discharge Plan Triage Chief Complaint: Fever ED Provider: Neymar Chairez Dx/Rx/DC Orders Clinical Impression: Fever, Pharyngitis Instructions: ED Fever Control (Adult), ED Pharyngitis, Viral Prescriptions: No Action gabapentin 100 mg capsule 300 mg PO TID RF: 0 lorazepam [Ativan] 1 mg tablet 1 mg PO TID PRN (Reason: Anxiety) RF: 0 duloxetine 60 mg capsule,delayed release(DR/EC) 90 mg PO DAILY RF: 0 quetiapine [Seroquel] 200 mg tablet 200 mg PO QHS RF: 0 diclofenac sodium [Voltaren] 1 % gel 2 g TOPICAL ONCE PRN (Reason: Pain Score 1-10) RF: 0 levomefolate calcium 15 mg tablet 15 mg PO DAILY RF: 0 turmeric root extract 538 mg capsule 538 mg PO DAILY RF: 0 bupropion HCl 150 MG tablet extended release 24 hr 300 mg PO DAILY RF: 0 linaclotide 145 MCG capsule 145 mcg PO DAILY RF: 0 albuterol sulfate [ProAir HFA] 90 mcg/actuation HFA aerosol inhaler 2 puff INHALATION Q4H PRN (Reason: Wheezing) RF: 0 baclofen 10 mg tablet 10 mg PO DAILY RF: 0 magnesium oxide 400 mg magnesium tablet 400 mg PO DAILY RF: 0 pantoprazole 40 mg tablet,delayed release (DR/EC) 40 mg PO DAILY RF: 0 metoprolol succinate 50 mg tablet extended release 24 hr 50 mg PO DAILY Qty: 90 RF: 3 Primary Care Provider: Agapito Saucedo Referrals: Agapito Saucedo DO [Primary Care Provider] - 3-5 Days if not improving Disposition Disposition: Home, Self Care Discharge Date/Time: 06/22/21 15:08
[2021-06-22 14:25] LABS: Bacteria 0 SEEN /hpf (None Seen); Mucous, Urine 0 SEEN /hpf (<or=2+); Red Blood Cells-Urine 0 SEEN /hpf (0-5)
[2021-06-22 14:27] LABS: Color, Urine Straw (Yellow); Glucose, Dipstick Normal (Normal); Ketone-Dipstick Negative (Negative); Leukocyte Esterase-Dipstick 25 /ul (Negative); Nitrite-Dipstick Negative (Negative); Occult Blood-Urine Negative /ul (Negative); Protein-Dipstick Negative (Negative); Urine Bilirubin Dipstick Negative (Negative); Urine Clarity Clear (Clear); Urine Urobilinogen Normal (Normal); Urine pH 6.5 (5.0 - 8.0)
[2021-06-22 14:33] LABS: Squamous Epithelial Cells - UA 0-5 SEEN /hpf (5-10); White Blood Cells 0-5 SEEN /hpf (0-5)
[2021-06-22 15:07] VITALS: BP 121/79; PULSE 71; RESP 18; O2SAT 99
== END 2021-06-22 15:08 | disposition home or self-care (01) ==
PROVIDERS: Emergency Provider Emergency Medicine; PCP Student in an Organized Health Care Education/Training Program
DX: J02.9 Acute pharyngitis, unspecified (principal); F41.9 Anxiety disorder, unspecified; M19.90 Unspecified osteoarthritis, unspecified site; F32.9 Major depressive disorder, single episode, unspecified; K21.9 Gastro-esophageal reflux disease without esophagitis; Z79.899 Other long term (current) drug therapy
CPT/HCPCS: 81001; 87880; 99282

== ENCOUNTER → 2021-09-03 06:29 | Outpatient (CLI) | payer MEDICARE, SELFPAY ==
--- NOTE | 2021-09-03 06:30 | MRI_ITS ---
STUDY: MRI LEFT SHOULDER REASON FOR EXAM: Left shoulder pain for 6 months, suspected labral tear. TECHNIQUE: Standardized fat and water weighted pulse sequences were obtained in all 3 orthogonal planes. COMPARISON: Radiographs 10/17/2020. FINDINGS: There is a small linear non retracted full-thickness tear of the distal anterior supraspinatus tendon at the greater tuberosity insertion (T2 coronal image 10) and an adjacent high grade partial-thickness tear of the articular surface of the distal supraspinatus tendon (T2 coronal image 11) measuring 1.6 cm in length. Normal infraspinatus tendon. Normal subscapularis tendon. Normal teres minor tendon. Normal supraspinatus muscle. There is mild atrophy with mild partial fat replacement of the infraspinatus muscle (T2 sagittal images 1-8). Normal subscapularis muscle. Normal teres minor muscle. Normal glenohumeral articulation. Normal humeral head and visualized proximal humerus. Normal biceps labral complex. Normal intracapsular long biceps tendon. There is a suspected tear of the posterior inferior labrum (proton-density axial images 14, 15). Normal capsulo- ligamentous complex. There is mild acromioclavicular arthrosis without undersurface osteophytes (T2 sagittal image 6). There is a Type I morphology (flat undersurface), with a neutral orientation. There is a small volume of subacromial-subdeltoid bursal fluid. Normal visualized coracohumeral and coracoacromial ligaments. Normal deltoid muscle. Normal trapezius muscle. MRI/Upper Ext Joint Only(Routine) IMPRESSION: Small linear full-thickness tear with an adjacent partial-thickness tear of the supraspinatus tendon. Mild atrophy of the infraspinatus muscle. Suspected tear of the posterior inferior labrum. Mild acromioclavicular arthrosis. Small volume of subacromial-subdeltoid bursal fluid. Electronically Signed: Fredis Hdz MD at 7:46 EDT Tel , Service support ,
== END ==
PROVIDERS: PCP Student in an Organized Health Care Education/Training Program; Referring Provider Orthopaedic Surgery; Visit Provider Orthopaedic Surgery
DX: S43.432A Superior glenoid labrum lesion of left shoulder, initial encounter (principal)
CPT/HCPCS: 73221

== ENCOUNTER → 2021-09-14 08:55 | Outpatient (CLI) | payer MEDICARE, SELFPAY | PROVIDERS: PCP Student in an Organized Health Care Education/Training Program; Referring Provider Physician Assistant Medical; Visit Provider Physician Assistant Medical | DX: I47.1 Supraventricular tachycardia (principal); G47.33 Obstructive sleep apnea (adult) (pediatric); I27.20 Pulmonary hypertension, unspecified; I34.1 Nonrheumatic mitral (valve) prolapse | CPT/HCPCS: 93225; 93226 ==

== ENCOUNTER → 2021-11-04 11:44 | Outpatient (CLI) | payer MEDICARE, SELFPAY | PROVIDERS: PCP Student in an Organized Health Care Education/Training Program; Referring Provider Orthopaedic Surgery; Visit Provider Orthopaedic Surgery | DX: Z01.818 Encounter for other preprocedural examination (principal) | CPT/HCPCS: 36415; 80048; 85027 ==

== ENCOUNTER 2021-11-10 08:48 | Day surgery (SDC) | payer MEDICARE, SELFPAY ==
[2021-11-04 12:12] LABS: Hematocrit 40.2 % (37-47); Hemoglobin 13.6 g/dL (12.0-15.0); Mean Corp Hgb Conc 33.8 g/dL (32-36); Mean Corpuscular Hgb 30.8 pg (27.0-32.0); Mean Corpuscular Volume 91.2 fL (81-99); Mean Platelet Vol. 11.2 fl (6.2-12.0); Platelet Count 244 K/mm3 (150-450); RBC Distribution Width CV 11.9 % (11.6-14.6); RBC Distribution Width SD 39.8 fl (35.1-43.9); Red Blood Count 4.41 M/mm3 (4.2-5.4); White Blood Count 6.5 K/mm3 (4.4-11.0)
[2021-11-04 12:38] LABS: Anion Gap 7 (5-15); BUN 13 mg/dL (7-18); BUN/Creat Ratio 18.2 RATIO (10-20); Calcium,Total 8.7 mg/dL (8.5-10.1); Chloride 108 mmol/L (98-107); Creatinine, Serum 0.72 mg/dL (0.55-1.02); EST Glomerular Filtration Rate 89 mL/min (>60); Est Glom Filt Rate - Afr Amer 108 mL/min (>60); Glucose 106 mg/dL (74-106); Potassium 3.8 mmol/L (3.5-5.1); Sodium Level 139 mmol/L (136-145)
[2021-11-10 09:09] VITALS: BP 108/72; PULSE 77; RESP 16; TEMP 36.6; O2SAT 97; BMI 38.1
[2021-11-10] MEDS: Lactated Ringers 1,000 ML 15 ML IV ×2 (09:20→11:46)
--- NOTE | 2021-11-10 10:35 | HP.PCM_ITS ---
History and Physical Date of Admission: 11/10/21 Date of Service: 09/07/21 MR#:[id number]: RYANNE RENTERIA #:[id number]:[id number] Provider:Dr. Neymar Humphries DOAge/Sex: 56/F Location:[place]:Signed Intake Intake Visit Reasons: Left shoulder Chief Complaint: left shoulder Allergies adhesive tape Allergy (Verified 09/07/21 09:21) rash Sulfa (Sulfonamide Antibiotics) Adverse Reaction (Verified 09/07/21 09:21) Rash Medications bupropion HCl 300 mg PO DAILY 02/15/14 [History Confirmed 09/07/21] lorazepam 1 mg tablet 1 mg PO TID PRN 11/12/20 [History Confirmed 09/07/21] linaclotide 145 mcg PO DAILY 12/13/20 [History Confirmed 09/07/21] albuterol sulfate 90 mcg/actuation aerosol inhaler 2 puff INHALATION Q4H PRN gm 01/27/21 [History Confirmed 09/07/21] baclofen 10 mg tablet 10 mg PO DAILY 01/27/21 [History Confirmed 09/07/21] magnesium oxide 400 mg PO DAILY 01/27/21 [History Confirmed 09/07/21] pantoprazole 40 mg tablet,delayed release 40 mg PO DAILY 01/27/21 [History Confirmed 09/07/21] metoprolol succinate 50 mg tablet,extended release 24 hr 50 mg PO DAILY #90 tab 04/20/21 [Rx Confirmed 09/07/21] duloxetine 60 mg capsule,delayed release 120 mg PO DAILY cap 08/27/21 [History Confirmed 09/07/21] gabapentin 100 mg capsule 300 mg PO .qid cap 09/07/21 [History Confirmed 09/07/21] quetiapine 200 mg tablet 200 mg PO QHS tab 09/07/21 [History Confirmed 09/07/21] PFSH Medical History (Updated 09/07/21 @ 10:[address] Neymar Humphries DO) Anxiety Arthritis Back problem Depression GERD (gastroesophageal reflux disease) Hematuria History of emotional problems Non-rheumatic mitral regurgitation Nonrheumatic mitral (valve) prolapse ARLEN (obstructive sleep apnea) Osteoarthritis Premature atrial contraction Premature ventricular contraction Pulmonary hypertension SVT (supraventricular tachycardia) Tachycardia Surgical History History of bladder surgery (~1972) History of tonsillectomy (~2008) Hx of arthroscopy of right knee (~2018) Family History Mother Anxiety Arthritis Depression Mental disorder Osteoporosis Atrial fibrillation Sister Breast cancer Brother Diabetes Father CAD (coronary artery disease) History of coronary artery bypass surgery Atrial fibrillation Other Hypertension Melanoma Social History Smoking Status: Never smoker alcohol intake: current alcohol intake frequency: a few times a month Alcohol type: beer substance use type: does not use caffeine: Yes Type: coffee Number of servings: 1 what type of physical activity do you participate in: swimming frequency: 1-2 times per week HPI Left shoulder Details: Parts of this documentation were recorded by a scribe, this documentation accurately reflects the service provided and the decisions made by me, Dr. Neymar Humphries, DO 09/07/21 0753. RYANNE RENTERIA is a 56 year old F here today for review of her MRI. Patient had an MRI of her left shoulder on: 09/03/21. Pain is still ongoing, no change. Patient states she has been taking Tylenol for pain relief. Patient voiced she is unable to take NSAIDs d/t GI issues. She mostly has pain in the anterolateral shoulder when reaching out to the side, to recall she is had injections and therapy and continues to have significant discomfort Ortho Exam General General: Yes no acute distress and Yes well groomed Neurologic: Yes alert and Yes oriented x3 Psychologic: Yes reasonable and appropriate Left Shoulder Skin/Wound: No ecchymosis, No erythema and No swelling Testing: Yes Hawkin's, No TTP Biceps, No TTP AC Joint, No Drop Arm and Yes belly press normal SHOULDER: Skin/Wound: Yes CDI, No ecchymosis, No erythema and No swelling Testing: Yes Hawkin's, No Neer's, No TTP Biceps, , Yes AROM-Forward Elevation 0- 180 (170), Yes AROM-External Rotation at side 0-60, No Apprehension Test, No jerk, Yes [place] and No cross arm SHOULDER: ttp anterior lateral acromion. pain with resisted abduction. full abduction. 50 ER at side. negative hornblowers. crepitus with range of motion. Office Procedures Ortho Injections Injections Yes Subacromial Injection Left Details: Obtained consent for injection. Under sterile conditions, injected the patient's left subacromial joint with 4cc bupivacaine, 4cc lidocaine and 0.5cc depomedrol. The patient tolerated the injection well without any noted complication. Patient should call our office if redness develops, pain worsens or if they have any concerns. Office Meds Depo-Medrol Performing Provider: Neymar Humphries DO Administered by: Neymar Humphries DO on 09/07/21 09:50 Dose Route Admin Location Lot Number Expiration Date [facility] [employer] 20 mg intra-articular Left subacromial [id number] 04/07/22 [id number] [employer] Supplemental Info 09/03/2021 MRI left shoulder: Small linear full-thickness tear with adjacent partial-thickness tear of the supraspinatus mild atrophy of the infraspinatus suspected tear of the posterior inferior labrum AC joint arthrosis subacromial bursitis Coding Level of Care Code Off vis,est,level 3 Diagnoses Partial tear of left rotator cuff M75.112 Rotator cuff tear trauma status: nontraumatic Impingement syndrome of left shoulder M75.42 Degenerative superior labral qegmhyda-vr-pdkpslggb (SLAP) tear of left shoulder S43.432A CPT Codes bus info consultant.sub ([id number]) Assessment and Plan Assessment and Plan (1) Partial tear of left rotator cuff: Status: Acute Qualifiers: Rotator cuff tear trauma status: nontraumatic Qualified Code(s): M75.112 - Incomplete rotator cuff tear or rupture of left shoulder, not specified as traumatic (2) Impingement syndrome of left shoulder: Status: Acute (3) Degenerative superior labral iddmmzpf-fd-kxzglpkkh (SLAP) tear of left shoulder: Status: Acute Plan - Dr. Neymar Humphries DO: Advised patient does have a tear of her anterior supraspinatus. There is a full-thickness linear component and a partial undersurface tear of the anterior supraspinatus. Patient does have AC joint arthritis present as well. Patient does have a noted degenerative tear of the labrum as well. Treatment options: Arthroscopic surgery for subacromial decompression rotator cuff repair versus debridement labral debridement possible biceps tenotomy. Explained patient rotator cuff repair does have a long recovery. Patient cannot do anything with weights for 3-4 months. Patient would be placed in a sling for six weeks. Advised the risk of possible re-tearing. Risk of continued pain with surgery Explained to patient and her partner, it will not heal on its own however the pain could subside with the inflammation. Risks, benefits and alternatives of surgery reviewed including risk of bleeding, infection, nerve, artery and/or tissue damage continued pain or symptoms and expected post-operative course. Patient would like to proceed with surgery. Explained to patient would have to obtain medical clearance from her PCP and from her family development extension specialist, Dr. Guillen. Explained patient will need physical therapy post-op. Patient would like to proceed with her surgery beginning of November,. Discussed patient will sign consent the day of her surgery. Patient does not need to come into the office prior. Patient would like to receive an injection to last her until her surgery. Obtained consent for injection per patient request to have an injection. Under sterile conditions, injected the patients left subacromial. The patient tolerated the injection well without any noted complication. Patient should call our office if redness develops, pain worsens or if they have any concerns. All questions answered. Patient in agreement of plan. Follow up two weeks post-op or sooner if pain, swelling, numbness or associated symptoms, or concerns develop. Plan Details Other Orders: Orders: Ortho Injections Today M25.519 09/07/21 1013<Electronically signed by Neymar Humphries DO>Date Neymar Humphries DO I have re-examined the patient. There are no clinical changes since date of exam
[2021-11-10] MEDS: Epinephrine (1 mg/ml) 1 MG/ML VIAL (11:22)
[2021-11-10] MEDS: Lidocaine 1% /Epi 1:100 (20ml) 20 ML Vial (12:10)
[2021-11-10] MEDS: Bupivacaine 0.5% PF 10 ML VIAL (12:10)
--- NOTE | 2021-11-10 12:18 | PCM.OPRPT ---
Report of Operation Date of Procedure: 11/10/21 Description of Surgical Findings:: Preoperative diagnosis: Left shoulder supraspinatus anterior rotator cuff tear possible labral tear Postoperative diagnosis: Near full-thickness undersurface tear of the anterior supraspinatus with a full-thickness linear defect, subtle fraying of the anterior superior labrum Procedure: Arthroscopic arthroscopic rotator cuff repair and labral debridement Implants: Arthrex 4.75 bio composite medial anchor and a 5.5 lateral anchor Anesthesia: General with interscalane block EBL: 25 cc Complications none Indication for procedure: This is a 56-year-old female patient with ongoing anterior shoulder pain was failed conservative treatment including injections and physical therapy and had MRI evidence of an anterior supraspinatus rotator cuff tear which should undergo arthroscopic evaluation and possible repair she understood risks benefits and alternatives of the procedure were reviewed including risk of bleeding infection nerve artery tissue damage need for further surgery continued pain postoperative stiffness and need for postoperative physical therapy and continued pain, postoperative expectations and rehab and retear. Procedure: Patient was met in the preoperative holding area the operative extremity was identified by both the patient and the physician and was marked. Patient was met by anesthesia and brought back to the operating room on a wheeled cart. Patient was transferred to the operating table in the supine position. Anesthesia was started. Patient was then positioned in the beach chair configuration. Bony prominences were well-padded. The patient was prepped and draped in the usual sterile fashion. A timeout was called to ensure the proper patient procedure and extremity were being contemplated. Anatomic landmarks were palpated and marked with a marking pen. A 0.25% Marcaine with epinephrine was injected into the planned portal sites. An 11 blade scalpel was used to make a stab incision in the posterior lateral portal. Arthroscope was inserted into the glenohumeral space with ease. Inflow and outflow tubes were attached and arthroscopic visualization began. An anterior portal was established with an 18-gauge spinal needle. The subscapularis was intact there is no significant cartilage pathology there was slight fraying of the anterior superior labrum which was debrided with a shaver the rotator cuff was evaluated and have a full-thickness linear tear of the anterior supraspinatus with partial-thickness undersurface articular sided tearing. The tear was probed and was completed with the use of a knife and a shaver the footprint was debrided with a shaver the axillary pouch was investigated and was free of loose bodies. The subscapularis was intact. The arthroscope was then repositioned into the subacromial space and a lateral portal was established. A subacromial decompression with an ArthroCare wand and shaver was performed. There was noted to be there was no significant anterior acromial spurring [The bursal side of the rotator cuff was evaluated . Using a speed fix technique and medial anchor with fiber tape passed individually through the tear and lateral anchor then secured it was a self punching. Excellent repair was achieved. The wound was thoroughly irrigated through the scope followed by a subacromial injection with 8 cc of 0.5% Marcaine plain. Suture portals were closed with 3-0 nylon arthroscopic stitches followed by Xeroform 4 x 4 ABD and a Ioban dressing. A abduction sling and pillow was placed. Anesthesia was reversed and patient tolerated the procedure well was and was transferred to the PACU. All counts were correct patient will follow-up in the office in 2 weeks . Patient may begin active elbow and wrist range of motion and pendulums of the shoulder but no active shoulder motion, dressing is to be left on for 48 hours before being changed daily after showering
--- NOTE | 2021-11-10 12:27 | EX.PCM.DISCH ---
Discharge Instructions Diet Discharge Diet: No restrictions Dressing / Incision Additional Dressing/Incision Instructions:: Leave the dressing on and intact for 48 hours. . Then may remove and shower with warm water and antibacterial soap. But do not submerge in tub for 3 weeks. Ice shoulder 15 min on and 15 mins off next 72 hrs. May remove sling for elbow range of motion and pendulum exercises only then replace sling. Absolutely no active shoulder motion. Do not lift push pull at all with operative extremity . Encourage finger and wrist range of motion. If any concerns call Dr. Humphries's office. Follow Up Care Test Results: Test results from this visit will be discussed in further detail at your follow-up appointment, if applicable. Discharge Plan Admission Primary Reason for Your Visit: Left shoulder surgery Attending Provider: Neymar Humphries Primary Care Provider: Agapito Saucedo Discharge Orders/Prescriptions Prescriptions: New oxycodone 5 mg tablet 5 mg PO Q4H PRN (Reason: pain) 7 Days Qty: 60 RF: 0 No Action gabapentin 100 mg capsule 300 mg PO .qid RF: 0 lorazepam [Ativan] 1 mg tablet 1 mg PO TID RF: 0 duloxetine 60 mg capsule,delayed release(DR/EC) 120 mg PO DAILY RF: 0 quetiapine [Seroquel] 200 mg tablet 200 mg PO QHS RF: 0 bupropion HCl 150 MG tablet extended release 24 hr 300 mg PO DAILY RF: 0 linaclotide 145 MCG capsule 145 mcg PO DAILY RF: 0 Cbd Oil 1 tab PO/SL PRN PRN (Reason: Pain) RF: 0 albuterol sulfate [ProAir HFA] 90 mcg/actuation HFA aerosol inhaler 2 puff INHALATION Q4H PRN (Reason: Wheezing) RF: 0 baclofen 10 mg tablet 10 mg PO DAILY RF: 0 magnesium oxide 400 mg magnesium tablet 400 mg PO DAILY RF: 0 pantoprazole 40 mg tablet,delayed release (DR/EC) 40 mg PO DAILY RF: 0 metoprolol succinate 50 mg tablet extended release 24 hr 50 mg PO DAILY Qty: 90 RF: 3 Referrals / Follow Up: Agapito Saucedo DO [Primary Care Provider] - Disposition Disposition (needs filled in before D/C Order can be placed): Home, Self Care
[2021-11-10 12:46] VITALS: BP 108/72; BP 124/98; PULSE 73; RESP 16; TEMP 36.2; O2SAT 94
[2021-11-10 13:00] VITALS: BP 108/72; BP 111/68; PULSE 72; RESP 16; O2SAT 92
[2021-11-10 13:15] VITALS: BP 102/72; BP 108/72; PULSE 63; RESP 16; O2SAT 92
[2021-11-10 13:30] VITALS: BP 102/61; BP 108/72; PULSE 65; RESP 16; TEMP 36.2; O2SAT 93
[2021-11-10 14:26] VITALS: BP 105/64; BP 108/72; PULSE 76; RESP 18; TEMP 36.4; O2SAT 99
== END 2021-11-10 23:59 | disposition home or self-care (01) ==
LOC: SDC 08:50 → AC 08:51
PROVIDERS: Anesthesiology; PCP Student in an Organized Health Care Education/Training Program; Referring Provider Orthopaedic Surgery; Visit Provider Orthopaedic Surgery
PROC: (CPT 29827; principal; 2021-11-10 10:30)
DX: M75.122 Complete rotator cuff tear or rupture of left shoulder, not specified as traumatic (principal); M75.42 Impingement syndrome of left shoulder; K21.9 Gastro-esophageal reflux disease without esophagitis; G47.33 Obstructive sleep apnea (adult) (pediatric); F32.A Depression, unspecified; F41.9 Anxiety disorder, unspecified; Z79.899 Other long term (current) drug therapy; Z87.891 Personal history of nicotine dependence
CPT/HCPCS: 29827; 29826; 64415; 36415; 80048; 85027; J7120; J2405

== ENCOUNTER 2021-12-30 08:41 | Outpatient (CLI) | payer MEDICARE, SELFPAY ==
--- NOTE | 2021-12-30 08:44 | ECHOD_ITS ---
Reason For Study: Dyspnea/SOB Procedure This was a 2D Doppler, Color Flow transthoracic echocardiogram. The exam was of adequate technical quality. Exam performed in department. Left Ventricle Normal LV size. Left ventricular systolic function is normal. The estimated ejection fraction is 65 %. No evidence for diastolic dysfunction. No regional wall motion abnormalities noted. Right Ventricle Normal RV size. Normal systolic function. Atria The left atrium is mildly enlarged. Normal right atrium. No doppler evidence for ASD. Mitral Valve There is no mitral annular calcification. Normal mitral valve. Mild (1+) eccentric mitral valve insufficiency. Tricuspid Valve Normal tricuspid valve. Mild tricuspid valve insufficiency. Right ventricular systolic pressure estimated to be 32 mmHg. Aortic Valve Trisinus/trileaflet aortic valve. Normal aortic valve. Trivial aortic valve insufficiency. Pulmonic Valve The pulmonic valve is not well visualized. Great Vessels Normal sized aortic root. Pericardium/Pleural No pericardial effusion. MMode/2D Measurements & Calculations LVIDd: 4.3 cm IVSd: 0.94 cm Ao root diam: 3.3 cm LVIDs: 2.6 cm LVPWd: 0.84 cm RVDd: 2.7 cm FS: 39.7 % LAV(MOD-bp): 52.1 ml LVAd ap4: 24.2 cm2 SV(MOD-sp4): 42.4 ml LAV(MOD-bp) Indexed: 25.1 ml/m2 LVLd ap4: 7.8 cm LAV(MOD-sp2): 40.8 ml EDV(MOD-sp4): 65.5 ml LAV(MOD-sp4): 58.8 ml EDV(sp4-el): 63.6 ml LVAs ap4: 13.2 cm2 LVLs ap4: 6.7 cm ESV(MOD-sp4): 23.1 ml ESV(sp4-el): 22.1 ml EF(MOD-sp4): 64.7 % EF(sp4-el): 65.3 % SV(sp4-el): 41.5 ml LA A4 area: 21.0 cm2 LA dimension(2D): 4.4 cm RA A4 area: 17.6 cm2 Doppler Measurements & Calculations MV E max karan: 108.5 cm/sec Lat Peak E' Karan: 9.6 cm/sec Med Peak E' Karan: 11.0 cm/sec MV A max karan: 68.6 cm/sec E/E' lat: 11.3 E/E' med: 9.8 MV E/A: 1.6 Ao V2 max: 157.8 cm/sec LV V1 max: 136.9 cm/sec PA V2 max: 93.6 cm/sec Ao max P.0 mmHg LV V1 max P.5 mmHg Ao V2 mean: 112.0 cm/sec Ao mean P.5 mmHg Ao V2 VTI: 32.7 cm TR max karan: 271.1 cm/sec TR max P.4 mmHg ECHO/Echo Complete Interpretation Summary Left ventricular systolic function is normal. The estimated ejection fraction is 65 %. The left atrium is mildly enlarged. Mild (1+) eccentric mitral valve insufficiency. Mild tricuspid valve insufficiency. Trivial aortic valve insufficiency. Right ventricular systolic pressure estimated to be 32 mmHg. No evidence for diastolic dysfunction. Ordering Physician: Leland Guillen Referring Physician: Agapito Saucedo Performed By: Jazmyne Mccormick, KARON, RVT
== END 2021-12-30 23:59 | disposition home or self-care (01) ==
LOC: CVS 08:43
PROVIDERS: PCP Student in an Organized Health Care Education/Training Program; Referring Provider Internal Medicine Cardiovascular Disease; Visit Provider Internal Medicine Cardiovascular Disease
DX: I34.1 Nonrheumatic mitral (valve) prolapse (principal); I34.0 Nonrheumatic mitral (valve) insufficiency
CPT/HCPCS: 93306

== ENCOUNTER 2022-01-01 11:38 | Outpatient (CLI) | payer MEDICARE, SELFPAY ==
[2022-01-01 12:21] LABS: Color, Urine Yellow (Yellow); Glucose, Dipstick Normal (Normal); Ketone-Dipstick Negative (Negative); Leukocyte Esterase-Dipstick Negative /ul (Negative); Nitrite-Dipstick Negative (Negative); Occult Blood-Urine Negative /ul (Negative); Protein-Dipstick Negative (Negative); Urine Bilirubin Dipstick Negative (Negative); Urine Clarity Clear (Clear); Urine Urobilinogen Normal (Normal)
== END 2022-01-01 23:59 | disposition home or self-care (01) ==
LOC: LAB 11:41
PROVIDERS: PCP Student in an Organized Health Care Education/Training Program; Referring Provider Student in an Organized Health Care Education/Training Program; Visit Provider Student in an Organized Health Care Education/Training Program
DX: R32 Unspecified urinary incontinence (principal)
CPT/HCPCS: 81002; 87086; 87088

== ENCOUNTER → 2022-09-15 | Outpatient (CLI) | payer MEDICARE, SELFPAY ==
[2022-09-15 09:21] LABS: Absolute Lymphocyte Count 2.02 X10^3/uL (0.83-4.51); Absolute Neutrophil Count 4.9 X10^3/uL (2.0-7.7); Basophil# 0.05 X10^3/uL; Basophil% 0.7 % (0-1); Eosinophil# 0.23 X10^3/uL; Hematocrit 39.6 % (37-47); Hemoglobin 13.9 g/dL (12.0-15.0); Lymphocyte # 2.02 X10^3/ul (0.83-4.51); Lymphocyte % 26.6 % (19-41); Mean Corp Hgb Conc 35.1 g/dL (32-36); Mean Corpuscular Hgb 31.7 pg (27.0-32.0); Mean Corpuscular Volume 90.2 fL (81-99); Mean Platelet Vol. 11.7 fl (6.2-12.0); Monocyte# 0.33 X10^3/uL; Monocyte% 4.4 % (0-10); NRBC Flagged by Analyzer 0 % (0-5); Neutrophil # 4.91 X10^3/uL (2.7-7.7); Neutrophil % 64.8 % (47-70); Platelet Count 219 K/mm3 (150-450); RBC Distribution Width CV 12.2 % (11.6-14.6); RBC Distribution Width SD 40.4 fl (35.1-43.9); Red Blood Count 4.39 M/mm3 (4.2-5.4); White Blood Count 7.6 K/mm3 (4.4-11.0)
[2022-09-15 09:34] LABS: ALB/GLOB Ratio 1.1 RATIO (0.9-2.4); AST(SGOT) 12 U/L (15-37); Alanine Aminotransfer ALT/SGPT 28 U/L (13-56); Albumin, Serum 3.7 g/dL (3.2-5.0); Alkaline Phosphatase 88 U/L (45-117); Anion Gap 5 (5-15); BUN 14 mg/dL (7-18); BUN/Creat Ratio 15.8 RATIO (10-20); Calcium,Total 8.6 mg/dL (8.5-10.1); Chloride 108 mmol/L (98-107); Cholesterol 246 mg/dL (200); Creatinine, Serum 0.89 mg/dL (0.55-1.02); EST Glomerular Filtration Rate 70 mL/min (>60); Est Glom Filt Rate - Afr Amer 84 mL/min (>60); Globulin 3.4 g/dL (2.2-4.2); Glucose 105 mg/dL (74-106); High Density Lipoprotein 49 mg/dL; Potassium 4.1 mmol/L (3.5-5.1); Protein, Total 7.1 g/dL (6.4-8.2); Sodium Level 140 mmol/L (136-145); Triglycerides 140 mg/dL; Very Low Density Lipoprotein 28 mg/dL (5-40)
== END | disposition home or self-care (01) ==
PROVIDERS: PCP Internal Medicine; Referring Provider Internal Medicine; Visit Provider Internal Medicine
DX: I34.1 Nonrheumatic mitral (valve) prolapse (principal); K21.9 Gastro-esophageal reflux disease without esophagitis; Z13.6 Encounter for screening for cardiovascular disorders
CPT/HCPCS: 36415; 80053; 80061; 85025

== ENCOUNTER → 2022-09-22 | Outpatient (CLI) | payer MEDICARE, SELFPAY ==
--- NOTE | 2022-09-22 08:19 | BI_ITS ---
MAMMOGRAPHY - BILATERAL SCREENING REASON FOR EXAM: Female, 57 years old. Routine annual screening examination. PERTINENT HISTORY: Sister with breast cancer. TECHNIQUE: Digital bilateral breast kasia (3D mammographic acquisition) in the CC and MLO projections. 2-D mediolateral oblique (MLO) and craniocaudad (CC) views of both breasts were obtained. CAD: Full Field Digital Mammography with Computer Added Detection was performed. COMPARISON: Comparison is made with prior study dated 05/08/2021 and 04/25/2019. FINDINGS: Breast Composition: The breasts are heterogeneously dense, which may obscure small masses. There are no dominant masses or suspicious calcifications. Stable small fat-containing bilateral axillary lymph nodes. No other significant abnormalities are identified. There has been no significant change since the prior study. BI/SCRN MAMM (CAD)W/KASIA BILAT IMPRESSION: Stable bilateral screening mammogram. Yearly follow-up mammogram recommended. (A) ASSESSMENT CATEGORY: BIRADS Category 2: Benign. A letter regarding these results will be sent to the patient by the facility within 30 days. Approximately 10% of breast cancers are not detected by mammography. A normal mammogram should not delay biopsy of a clinically suspicious abnormality. [id number] Electronically Signed: Baljeet Luis MD at 8:55 EST ,
== END | disposition home or self-care (01) ==
LOC: OPBI 08:18
PROVIDERS: PCP Internal Medicine; Referring Provider Internal Medicine; Visit Provider Internal Medicine
DX: Z12.31 Encounter for screening mammogram for malignant neoplasm of breast (principal); Z80.3 Family history of malignant neoplasm of breast
CPT/HCPCS: 77063; 77067

== ENCOUNTER 2022-10-21 10:00 | Outpatient (RCR) | payer MEDICARE, SELFPAY ==
--- NOTE | 2022-09-22 10:06 | HP.PTEVAL ---
Patient's Visit Information RYANNE RENTERIA is a 57 year old F referred to Physical Therapy by Dr. Laura Crooks MD with a diagnosis of cervicalgia, Lumbar DDD. Date of Evaluation: 09/22/22 Physical Therapist: Jefferson Miles, DPT, OCS, CSCS - Visit Plan Frequency: 2x /Week Duration: 4-6 Weeks Plan: 2x/week for 4-6 weeks starting aquatic therapy for general body strength, core, postural and pelvis, focus NS position, also please stretch quads and psoas. work to I at [employer]. - Subjective I have chronic back pain that is worsening and neck is beginning to hurt. Neck limits her more than back. Has to go to bed early to take pressure off. Has cynovial cyst in lumbar. Will see Basali. PCP sent her here this time. Neck pain up to 5/10 and cracks centrally. Intermittent. Worse later in day. Treading water (looking up) makes it worse. Back is central pain and off to sides. No leg symptoms, No arm symptoms. Back can get to 6/10 and up to 8/10 later in day.Walking will make her back tight after 15 minutes. Feels better when she lies down. Therapy has helped in the past in the pool. Sleep is hard to get comfortable but she has sleep apnea also. Disability on. Basic ADLs are getting done at home, steps can be hard and make her sore, laundry is in the basement, spouse carries it up. Hobbies: Goes to the pool and takes care of three cats. Spouse cleans rakan box due to back pain. HEP: NO, gets in water and swims and treads, does this 3x/week but has been slacking. - Pain LBP Pain Intensity (Out of 10): 5 Pain Intensity Range: 4, 6 Neck pain Pain Intensity (Out of 10): 0 Pain Intensity Range: 0, 4 - Objective Walks into PT I, transfers are I. Good balance. cervical aROM retraction mod limited and painful, extension 40 and some pain, SB full, rotation 60 and painfree. Lumbar AROM ext pain centrally with slight limitations, flexion tight. Posture is hyper lordotic. Quads and psoas mod tight. reflexes 2/3 patella and achilles and bi and tri. Sensation UE and LE is WNL to gross light touch. Strength LE 4/5 knees and ankles, 4- hip abd and ext, UE 4- B, core 3+ abs and 3 ext, Challenge to move pelvis into posterior position. - slump, - SLR, - cervical compression. No tenderness in soft tissue of neck or LB parapsinals, slight tender spot L post glut. - Balance/Special Test Scores Oswestry Neck Score: 31 - Goals Goal 1:: I appropriate pool ex to limit future problems Goal Time Frame: 4-6 Weeks Goal 2:: Pain in neck 75% better to 1/10 at worst and manageable Goal Time Frame: 4-6 Weeks Goal 3:: LBP 1/10 at worst and 80% better Goal Time Frame: 4-6 Weeks Goal 4:: Sleep without interruption form discomfort Goal Time Frame: 4-6 Weeks Goal 5:: Neck oswestry 8 or better Goal Time Frame: 4-6 Weeks - Rehabilitation Potential Physical Therapy Diagnosis: degenerative achanges in spine poorly managed and weak. Rehabilitation Potential: Fair - Anticipated Interventions Patient/Client Instruction: Educate patient on: Condition, Plan of Care For the Purpose of:: To decrease pain, To increase ROM, To improve muscle performance and motor function, To increase tolerance to activity/condition/position, To improve ability of physical actions for home/community/work/leisure Therapeutic Exercise to Include: Strength training, Flexibilty training, In an aquatic setting, Passive ROM, Active ROM, Dynamic Lumbar Stabilization For the Purpose of:: To decrease pain, To increase ROM, To improve muscle performance and motor function, To increase tolerance to activity/condition/position, To improve ability of physical actions for home/community/work/leisure, To improve gait and locomotor functions Thank you for the opportunity to evaluate your patient. For Medicare and Medicare HMO plans, please review the plan of care and approve it. It will need to be FAXED BACK to us at [phone] for Medicare purposes. For Medicare only, by signing this I certify the plan of care. Please let me know if there are questions or concerns regarding this plan of care. Physician Signature: Date:
--- NOTE | 2022-10-21 10:14 | HP.PTDCSUM ---
It has been my pleasure to treat RYANNE RENTERIA referred by Dr. Laura Crooks MD, with the diagnosis of cervicalgia, Lumbar DDD for a total of 7 visit(s). Discharge Date: 10/21/22 Please see the following information for a summary of their discharge status. Subjective: Pt feels like she is about the same. L hip is hurting. Pain no better. Strength is a little better. Will see doctor Karime on 10/25. Just had another injection 2 months ago which helped for 3 days. LBP Pain Intensity (Out of 10): 5 Neck pain Pain Intensity (Out of 10): 3 % Improvement: 0 Objective/Function: Neck AROM extension to 55 but hesitant to use it, rotations 65 B and hesitant but not painful. UE AROM WFL and painfree. Walking and transitioning well. Goal 1:: I appropriate pool ex to limit future problems Goal Progress: Goal Met Goal 2:: Pain in neck 75% better to 1/10 at worst and manageable Goal Progress: Not Progressing Goal 3:: LBP 1/10 at worst and 80% better Goal Progress: Not Progressing Goal 4:: Sleep without interruption form discomfort Goal Progress: Not Progressing Goal 5:: Neck oswestry 8 or better Goal Progress: Progressing Plan: d/c, pt back to doctor. Discharge Comments: Pt to doctor for other options and I have recommended she continue pool ex in community which she is willing to do. If there are questions or concerns regarding this patient's physical therapy, please feel free to call me at [phone]. Thank you for the referral of this patient. Sincerely, Jefferson Miles, DPT, OCS, CSCS Balance/Gait/Functional tests - Balance/Special Test Scores Oswestry Neck Score: 24
== END 2022-10-21 13:18 | disposition home or self-care (01) ==
LOC: PT 10:00
PROVIDERS: PCP Internal Medicine; Visit Provider Internal Medicine
DX: M51.36 Other intervertebral disc degeneration, lumbar region (principal); G89.29 Other chronic pain; M54.2 Cervicalgia
CPT/HCPCS: 97110; 97113; 97162; 97164

== ENCOUNTER → 2023-01-12 | Outpatient (CLI) | payer OTHER, SELFPAY ==
--- NOTE | 2023-01-11 14:36 | MRI_ITS ---
STUDY: MRI LUMBAR SPINE WITHOUT CONTRAST REASON FOR EXAM: Female, 58 years old. L5-S1 disc protrusion. TECHNIQUE: Standardized fat and water weighted pulse sequences were obtained in the sagittal and axial planes. COMPARISON: MRI lumbar spine without contrast 07/04/2018. FINDINGS: T10-T11, T11-12 and T12-L1: (Sagittal only). Normal endplates. Normal disc height, hydration and morphology. No ventral extradural defects. Normal central canal and bilateral intervertebral neural foramina. Normal lumbar lordosis. There is no substantial scoliosis. Normal conus medullaris that terminates at the lower L1 vertebral body level. L1-2: Normal endplates. Normal disc height, hydration and morphology. Normal bilateral facet joints. Normal central canal and bilateral lateral recesses. Normal bilateral intervertebral neural foramina. L2-3: Normal endplates. Normal disc height, hydration and morphology. Normal bilateral facet joints. Normal central canal and bilateral lateral recesses. Normal bilateral intervertebral neural foramina. L3-4: Normal endplates. Normal disc height, hydration and morphology. Normal bilateral facet joints. Normal central canal and bilateral lateral recesses. Normal bilateral intervertebral neural foramina. L4-5: Normal endplates. Minimal disc space height narrowing but normal disc hydration and morphology. Slight increase in mild degenerative anterolisthesis of L4 on L5. Moderate bilateral degenerative facet arthropathy. Prominent dorsal epidural lipomatosis. Moderately pronounced central canal stenosis with an AP canal diameter of 5 mm, previously 7 mm. Normal bilateral lateral recesses. Mild stenosis of the bilateral intervertebral neural foramina. L5-S1: Normal endplates. Mild disc space height narrowing. Small posterior bulging annulus rather than disc protrusion but no ventral extradural defect due to presence of prominent ventral epidural fat. Tapered termination of the thecal sac at the upper S1 body level with increased surrounding epidural lipomatosis. Normal facet joints. Normal central canal and bilateral lateral recesses. Normal bilateral intervertebral neural foramina. Normal visualized sacral ala. Normal visualized paraspinous soft tissue structures. MRI/Spine Lumbar (Routine) IMPRESSION: 1. Moderately pronounced central canal stenosis at L4-L5 disc space level with an AP canal diameter 5 mm, previously 7 mm. This is due to slight increase in mild degenerative anterolisthesis of L4 on L5 and mild increase in moderate bilateral degenerative facet arthropathy. 2. Small L5-S1 posterior bulging annulus rather than disc protrusion but no associated ventral extradural defect due to presence of prominent ventral epidural fat. Additionally, tapered termination of the thecal sac at the upper S1 body level due to increased surrounding epidural lipomatosis. Previously, the thecal sac terminated at the lower S2 body level. 3. No MRI evidence of lumbar extruded disc fragment. Electronically Signed: Darryl Dos Santos MD at 11:04 EST ,
== END | disposition home or self-care (01) ==
LOC: MRI 08:14
PROVIDERS: PCP Internal Medicine; Referring Provider Orthopaedic Surgery; Visit Provider Orthopaedic Surgery
DX: M51.26 Other intervertebral disc displacement, lumbar region (principal)
CPT/HCPCS: 72148

== ENCOUNTER → 2023-03-08 | Outpatient (CLI) | payer MEDICARE, SELFPAY ==
--- NOTE | 2023-03-08 07:51 | NM_ITS ---
CLINICAL: 58-year-old female with history of acid reflux, chronic nausea. SEMI-SOLID PHASE 99m Tc SULFUR COLLOID GASTRIC EMPTYING STUDY COMPARISON: Previous semisolid phase gastric emptying study dated 10/07/2014 FINDINGS: The patient was administered 1.0 mCi of 99m Tc sulfur colloid mixed with oatmeal and consumed per os. Image acquisitions in the anterior-posterior projections were obtained for 60 minutes. There is prompt visualization of the stomach. There is no gastroesophageal reflux identified. The T ? raw data emptying was calculated to be 39.71 minutes, (Normal: 12-56 minutes) compared to 31.0 minutes defined on the examination dated 10/07/2014. NM/Gastric Emptying Study IMPRESSION: 1. NORMAL 99m Tc sulfur colloid semi-solid phase (oatmeal) gastric emptying imaging examination. A. There is normal and preserved semi-solid phase gastric emptying compared to normal controls. (Damon et al, J Nucl Med Tech 38: 186, 2010). B. Overall compared to the previous semisolid phase gastric emptying study dated 10/07/2014, there is minimal interval change. Electronically Signed: Marcus Torres, at 22:07 EDT ,
== END | disposition home or self-care (01) ==
PROVIDERS: PCP Student in an Organized Health Care Education/Training Program; Referring Provider Nurse Practitioner Adult Health; Visit Provider Nurse Practitioner Adult Health
DX: K21.9 Gastro-esophageal reflux disease without esophagitis (principal)
CPT/HCPCS: 78264; A9541

== ENCOUNTER 2023-03-11 09:19 | Day surgery (SDC) | payer MEDICARE, SELFPAY ==
[2023-03-11] VITALS (7 sets, daily range): BP systolic 101–149; BP diastolic 58–92; PULSE 77–88; RESP 16–18; TEMP 36.2–36.7; O2SAT 93–100; BMI 35.6
[2023-03-11] MEDS: Lactated Ringers 1,000 ML 15 ML IV (10:10)
[2023-03-11] MEDS: Bupivacaine 0.25% 30 ML Vial (10:40)
[2023-03-11] MEDS: Lidocaine 1% /Epi 1:100 (20ml) 20 ML Vial (10:40)
--- NOTE | 2023-03-11 10:47 | RAD_ITS ---
STUDY: X-RAY - LUMBAR SPINE REASON FOR EXAM: Female, 58 years old. INSERTION SPINAL CORD STIMULATOR TECHNIQUE: 3 view(s) of the lumbar spine were obtained. COMPARISON: None FINDINGS: Status post spinal cord stimulator placement. The tip of the electrodes is at the T8-T9 level. RAD/Lumbar Spine 2 or 3 Views IMPRESSION: Tip of the electrodes is at the T8-T9 level. Electronically Signed: Baljeet Luis MD at 14:54 EDT ,
== END 2023-03-11 13:30 | disposition home or self-care (01) ==
LOC: SDC 09:21 → AC 09:22
PROVIDERS: PCP Student in an Organized Health Care Education/Training Program; Referring Provider Anesthesiology Pain Medicine; Visit Provider Anesthesiology Pain Medicine
PROC: (CPT 63685; principal; 2023-03-11 10:30)
DX: M54.16 Radiculopathy, lumbar region (principal); M54.2 Cervicalgia; G89.29 Other chronic pain; Z79.899 Other long term (current) drug therapy; Z87.891 Personal history of nicotine dependence
CPT/HCPCS: 63685; 63650 ×2; 00300; 72100; 76000; C1778; J7040; J7120; J2405

== ENCOUNTER → 2023-05-03 | Outpatient (CLI) | payer MEDICARE, SELFPAY ==
[2023-05-03] VITALS (7 sets, daily range): BP systolic 106–132; BP diastolic 70–87; PULSE 65–88; RESP 18; TEMP 35.9–36.6; O2SAT 97–100; BMI 34.0
[2023-05-03] MEDS: Lactated Ringers 1,000 ML 15 ML IV (14:11)
--- NOTE | 2023-05-03 14:45 | EGD_PTH ---
PATIENT: RYANNE RENTERIA LOC: [facility] U#:[id number] AGE/SX: 58/F ROOM: RE05/03/[address]: Dr. Homar Wills DO : 1965 BED: DIS: 05/03/2023 SPEC #: [id number] RECD: 05/03/23 15:55 STATUS: EBEN REJacqui #: [id number] ALY: 05/03/23 14:[address]: Homar Wills DEPT: SURGICAL PATHOLOGY RECD BY: Alice Hyde ENTERED: 05/04/23 08:40 SP TYPE: EGD BIOPSY OT DR: Dr. Agapito Saucedo DO Tissues: A - Duodenum, NOS B - Gastric mucous membrane C - Esophagus, NOS Procedures: Special Stain Group II Surgery Specimen Level IV Alcian Blue/PAS (control) HEADER OPERATION: EGD ([facility]), biopsy PRE-OP DIAGNOSIS: GERD TISSUE SUBMITTED: A - Duodenum biopsy, B - Gastric antrum biopsy for H. pylori and path, C - Distal esophagus biopsy MICROSCOPIC DIAGNOSIS A. Duodenum, biopsy: Mild chronic gastritis. See comment. B. Gastric antrum, biopsy: Mild chronic gastritis. See comment. C. Distal esophagus, biopsy: Gastroesophageal junctional mucosa with mild chronic inflammation. Focal changes of reflux. No evidence of goblet cell metaplasia. See comment. AM:jaya 05/05/2023 COMMENT A. There is focal flattening of villi present. Clinical correlation is necessary. B. The results of immunohistochemistry for Helicobacter pylori will be reported separately ([id number]). C. Alcian blue/PAS stain with matched control supports the above diagnosis. MICROSCOPIC DESCRIPTION Slides are reviewed. GROSS DESCRIPTION A - Received in fixative is one container labeled with the patient's name and designated duodenum biopsy. The specimen consists of multiple irregular fragments of light diaz soft tissue that in aggregate measure 0.8 x 0.3 x 0.1 cm. The specimen is totally submitted in one cassette. B - Received in fixative is one container labeled with the patient's name and designated gastric antrum. The specimen consists of one irregular fragment of light diaz soft tissue that measures 0.4 x 0.4 x 0.1 cm. The specimen is totally submitted in one cassette. C - Received in fixative is one container labeled with the patient's name and designated distal esophagus. The specimen consists of two irregular fragments of light diaz soft tissue that in aggregate measure 0.6 x 0.5 x 0.1 cm. The specimen is totally submitted in one cassette. / SJ:rg 05/04/2023 TC:3 CPT: 65469 x3, 99475
--- NOTE | 2023-05-03 14:45 | IMM_PTH ---
PATIENT: RYANNE RENTERIA LOC: LAB U#:[id number] AGE/SX: 58/F ROOM: RE05/03/[address]: Dr. Homar Wills DO : 1965 BED: DIS: 05/03/2023 SPEC #: [id number] RECD: 05/04/23 14:13 STATUS: EBEN REQ #: [id number] ALY: 05/03/23 14:[address]: Homar Wills DEPT: IMMUNOHISTOCHEMISTRY RECD BY: Verna Pulido ENTERED: 05/04/23 14:14 SP TYPE: IMMUNO OTHR DR: Dr. Agapito Saucedo DO Tissues: B - Stomach, NOS Procedures: H Pylori (initial) PHYSICIAN & INSTITUTION [place] [id number] SPECIMEN INFORMATION: Tissue Source: B - Gastric antrum Clinical Info: GERD Specimen Number: [id number] CPT code: 47474 METHODOLOGY: Deparaffinized sections of prefer/formalin-fixed tissue or PAP/DQ stained slides are incubated with monoclonal/polyclonal antibodies/oligonucleotide probes. Localization is made via biotin free immunoperoxidase method. Appropriate controls are performed and reacted as expected. Results on target cell population are indicated in the following table: RESULTS: ANTIBODY / CLONE RESULT Block B H Pylori (polyclonal) negative These tests were developed and their performance characteristics determined by [facility]. They may not have been cleared or approved by the U.S. Food and Drug Administration. The FDA has determined that such clearance or approval is not necessary. The above immunohistochemical/dualISH markers are ordered and reviewed by the Pathologist. INTERPRETATION: B. Gastric antrum, biopsy: Negative for Helicobacter pylori organisms. AM:jaya 05/05/2023
--- NOTE | 2023-05-03 14:49 | HP.PCM_ITS ---
History and Physical Date of Admission: 05/03/23 58 F who presents to the office today to establish with GI for IBS-C and GERD. Constipation well managed with Linzess 145 mcg daily. Has daily BM, no diarrhea. When in donut hole and couldn't afford Linzess she used miralax but not nearly as effective. No melena or hematochezia. Colonoscopy [address] Vasquez, told to repeat in 10 yrs. Last EGD 5-7 yrs ago. She takes pantoprazole 40 mg daily but still has daily acid reflux, to the point of having it reflux into her CPAP mask. Sleeps with HOB elevated. Rare sudden nausea with vomiting, no known triggers. Chokes if drinks too fast. Pills can feel like they stick in her throat. No early satiety. Had bulimia in her 20s x 5 yrs. Has upper dentures. Cysts in liver, fatty liver ROS Const Constitutional: No fatigue ENT ENT: Positive for difficulty swallowing Gastro GI: Positive for constipation, heartburn and difficulty swallowing; No abdominal pain, belching, bloating, change in bowel habits, change in stool character, coffee ground emesis, cramping, diarrhea, feeling full early, excessive flatus, incontinent of stools, Vomiting blood/hematemesis, Blood in stool, loose stools, Black,tarry stools, nausea/dyspepsia, pain with swallowing, vomiting or other Musc Musculoskeletal: Positive for back pain; No joint pain Skin Skin: No yellowing of the eye or itchy eyes Psych Psychiatric: No anxiety and No depression Endo Endocrine: No fatigue Aller/Imm Allergy/Immunologic: No itchy eyes Marquise/Lymp Hematologic/Lymphatic: No easy bleeding or easy bruising Exam Const General: cooperative and comfortable Nutritional Appearance: obese Orientation: alert, awake and oriented x3 Eyes Sclera: sclerae normal Resp Effort & Inspection: normal respiratory effort Skin General: no jaundice Quality Reporting Tobacco Screening ([facility] 138) Smoking Status: Former smoker Assessment and Plan Assessment and Plan (1) GERD (gastroesophageal reflux disease): ?Status:?Chronic ?Qualifiers: ?Esophagitis presence:?esophagitis presence not specified? Qualified Code(s):?K21.9 - Gastro-esophageal reflux disease without esophagitis ?Plan: 58 yr old female with uncontrolled acid reflux despite PPI therapy, mild dysphagia with pills Continue pantoprazole 40 mg daily She elevates HOB Will get gastric emptying study Will schedule EGD w/ office f/u 2 wks later (2) Irritable bowel syndrome with constipation: ?Status:?Chronic ?Plan: Refill Linzess 145 mcg daily ? ? ? Orders: Orders Gastric Emptying Study Today K21.9 - Gastro-esophageal reflux disease without esophagitis ? Medications: Refilled linaclotide (Linzess) 145 mcg? PO DAILY 90 caps 3RF ? ? Discontinued polyethylene glycol 3350 (Miralax) ?? Discontinued Reason:? Pt no longer taking 4 grams? PO DAILY ? ? Coding Level of Care Code Off vis,est,level 3 Diagnoses GERD (gastroesophageal reflux disease)? K21.9 ? ? ? Esophagitis presence: esophagitis presence not specified Irritable bowel syndrome with constipation? K58.1 I have examined the patient and the H&P has been reviewed. There are no clinical changes since date of exam.
--- NOTE | 2023-05-03 15:17 | OP.EGD_ITS ---
Patient Name: Sarah Curtis Procedure Date: 05/03/2023 2:55 PM Date of : 1965 Age: 58 Procedure: Upper GI endoscopy Indications: Functional Dyspepsia, Heartburn Providers: Homar Wills DO Referring MD: Homar Wills DO Medicines: Monitored Anesthesia Care Patient Profile: This is a 58 year old female. Refer to note in patient chart for documentation of history and physical. Patient has symptoms of chronic dyspepsia, chronic heartburn and chronic nausea. Complications: No immediate complications. Procedure: Pre-Anesthesia Assessment: - Prior to the procedure, a History and Physical was performed, and patient medications and allergies were reviewed. The patient is competent. The risks and benefits of the procedure and the sedation options and risks were discussed with the patient. All questions were answered and informed consent was obtained. Patient identification and proposed procedure were verified by the physician in the pre-procedure area. Mental Status Examination: alert and oriented. Airway Examination: normal oropharyngeal airway and neck mobility. Respiratory Examination: clear to auscultation. CV Examination: normal. Prophylactic Antibiotics: The patient does not require prophylactic antibiotics. Prior Anticoagulants: The patient has taken no previous anticoagulant or antiplatelet agents. After reviewing the risks and benefits, the patient was deemed in satisfactory condition to undergo the procedure. The anesthesia plan was to use monitored anesthesia care (MAC). Immediately prior to administration of medications, the patient was re-assessed for adequacy to receive sedatives. The heart rate, respiratory rate, oxygen saturations, blood pressure, adequacy of pulmonary ventilation, and response to care were monitored throughout the procedure. The physical status of the patient was re-assessed after the procedure. After obtaining informed consent, the endoscope was passed under direct vision. Throughout the procedure, the patient's blood pressure, pulse, and oxygen saturations were monitored continuously. The gastroscope was introduced through the mouth, and advanced to the second part of duodenum. The upper GI endoscopy was accomplished without difficulty. The patient tolerated the procedure well. Scope In: 2:58:55 PM Scope Out: 3:04:24 PM Total Procedure Duration Time 0 hours 5 minutes 29 seconds Findings: Non-severe esophagitis with no bleeding was found 35 to 36 cm from the incisors. Biopsies were taken with a cold forceps for histology. Verification of patient identification for the specimen was done. Estimated blood loss was minimal. Patchy mildly erythematous mucosa without bleeding was found in the gastric body. Biopsies were taken with a cold forceps for histology. Verification of patient identification for the specimen was done. Estimated blood loss was minimal. No gross lesions were noted in the second portion of the duodenum. Biopsies were taken with a cold forceps for histology. Verification of patient identification for the specimen was done. Estimated blood loss was minimal. Impression: - Non-severe reflux esophagitis. Biopsied. - Erythematous mucosa in the gastric body. Biopsied. - No gross lesions in the second portion of the duodenum. Biopsied. Recommendation: - Discharge patient to home. - Resume previous diet. - Continue present medications. - Await pathology results. - Food allergy testing Procedure Code(s): --- Professional --- 79549, Esophagogastroduodenoscopy, flexible, transoral; with biopsy, single or multiple CPT copyright 2017 [employer]. All rights reserved. The codes documented in this report are preliminary and upon access clerk review may be revised to meet current compliance requirements. Homar Wills DO 05/03/2023 3:16:44 PM This report has been signed electronically. Number of Addenda: 0 Note Initiated On: 05/03/2023 2:55 PM
--- NOTE | 2023-05-03 15:17 | OP.CCLET_ITS ---
05/03/2023 Agapito Saucedo Do Re : Upper GI endoscopy procedure for Sarah Grullonr Lewis This procedure was performed on Wednesday, May 03, 2023. My impressions and recommendations are as follows: Impressions : - Non-severe reflux esophagitis. Biopsied. - Erythematous mucosa in the gastric body. Biopsied. - No gross lesions in the second portion of the duodenum. Biopsied. Recommendations : - Discharge patient to home. - Resume previous diet. - Continue present medications. - Await pathology results. - Food allergy testing My findings are described in the full procedure note, which is enclosed. If I can be of further assistance, please feel free to contact me at . Sincerely, Homar Wills, 05/03/2023 3:16:44 PM This report has been signed electronically.
[2023-05-07 13:07] LABS: Beef <0.10 kU/L (Class 0); Chocolate <0.10 kU/L (Class 0); Clam <0.10 kU/L (Class 0); Codfish <0.10 kU/L (Class 0); Corn <0.10 kU/L (Class 0); Egg, White <0.10 kU/L (Class 0); Egg, Whole <0.10 kU/L (Class 0); Milk (Cow) 0.39 kU/L (Class I); Peanut <0.10 kU/L (Class 0); Pork <0.10 kU/L (Class 0); SCALLOP <0.10 kU/L (Class 0); SESAME SEED <0.10 kU/L (Class 0); Shrimp <0.10 kU/L (Class 0); Soybean <0.10 kU/L (Class 0); Walnut, (Food) <0.10 kU/L (Class 0); Wheat 0.12 kU/L (Class 0/I)
== END | disposition home or self-care (01) ==
LOC: EN 13:48 → AC 13:50 → LAB 15:55
PROVIDERS: PCP Student in an Organized Health Care Education/Training Program; Referring Provider Student in an Organized Health Care Education/Training Program; Visit Provider Internal Medicine Gastroenterology
PROC: 0DJ08ZZ Inspection of Upper Intestinal Tract, Via Natural or Artificial Opening Endoscopic (ICD-10-PCS; CPT 43235; principal; 2023-05-03 14:40)
DX: K21.00 Gastro-esophageal reflux disease with esophagitis, without bleeding (principal); Z79.899 Other long term (current) drug therapy; K58.1 Irritable bowel syndrome with constipation; K29.50 Unspecified chronic gastritis without bleeding; J45.909 Unspecified asthma, uncomplicated
CPT/HCPCS: 43239; 36415; 86003; 86005; 88305; 88313; 88342; J7120

== ENCOUNTER → 2023-10-05 | Outpatient (CLI) | payer MEDICARE, SELFPAY ==
--- NOTE | 2023-10-05 14:48 | BI_ITS ---
MAMMOGRAPHY - BILATERAL SCREENING REASON FOR EXAM: Female, 58 years old. Routine annual screening examination. PERTINENT HISTORY: Sister with breast cancer. TECHNIQUE: Digital bilateral breast kasia (3D mammographic acquisition) in the CC and MLO projections. 2-D mediolateral oblique (MLO) and craniocaudad (CC) views of both breasts were obtained. CAD: Full Field Digital Mammography with Computer Added Detection was performed. COMPARISON: Comparison is made with prior study dated September 22, 2022 and May 08, 2021. FINDINGS: Breast Composition: The breasts are heterogeneously dense, which may obscure small masses. There are no dominant masses or suspicious calcifications. Stable bilateral fat containing axillary lymph nodes. No other significant abnormalities are identified. There has been no significant change since the prior study. BI/SCRN MAMM (CAD)W/KASIA BILAT IMPRESSION: Stable bilateral screening mammogram. Yearly follow-up mammogram recommended. (A) ASSESSMENT CATEGORY: BIRADS Category 2: Benign. A letter regarding these results will be sent to the patient by the facility within 30 days. Approximately 10% of breast cancers are not detected by mammography. A normal mammogram should not delay biopsy of a clinically suspicious abnormality. [id number] Electronically Signed: Baljeet Luis MD at 11:07 EST ,
== END | disposition home or self-care (01) ==
LOC: OPBI 14:47
PROVIDERS: PCP Student in an Organized Health Care Education/Training Program; Referring Provider Student in an Organized Health Care Education/Training Program; Visit Provider Student in an Organized Health Care Education/Training Program
DX: Z12.31 Encounter for screening mammogram for malignant neoplasm of breast (principal); Z80.3 Family history of malignant neoplasm of breast
CPT/HCPCS: 77063; 77067

== ENCOUNTER → 2024-02-02 | Outpatient (CLI) | payer MEDICARE, SELFPAY ==
--- NOTE | 2024-02-02 11:40 | RAD_ITS ---
STUDY: X-RAY - LUMBAR SPINE REASON FOR EXAM: Female, 59 years old. Fall. Pain. TECHNIQUE: 2 view(s) of the lumbar spine were obtained. COMPARISON: 03/16/2018 FINDINGS: Osteopenia. Slightly accentuated lordosis. No scoliosis. Normal vertebral alignment. Diffuse mild lower thoracic and lumbosacral facet sclerosis. Mild intervertebral disc space narrowing at T11-T12 and T12-L1. New spinal stimulator. RAD/Lumbar Spine 2 or 3 Views IMPRESSION: Osteopenia with mild lower thoracic and lumbosacral spondylosis, relatively unchanged since prior study. Electronically Signed: Kuldip Plaza MD at 15:25 EDT ,
== END | disposition home or self-care (01) ==
LOC: RAD 11:37
PROVIDERS: PCP Student in an Organized Health Care Education/Training Program; Referring Provider Anesthesiology Pain Medicine; Visit Provider Anesthesiology Pain Medicine
DX: M54.9 Dorsalgia, unspecified (principal)
CPT/HCPCS: 72100

== ENCOUNTER 2024-03-13 11:00 | Outpatient (RCR) | payer MEDICARE, SELFPAY ==
--- NOTE | 2024-02-13 10:33 | HP.PTEVAL ---
Patient's Visit Information Visit Information Visit Information: RYANNE RENTERIA is a 59 year old F referred to Physical Therapy by Dr. Barbara Schaffer MD with a diagnosis of Back pain. Date of Evaluation: 02/13/24 Physical Therapist: Jefferson Miles, DPT, OCS, CSCS Visit Plan Frequency: 2x /Week Duration: 4-6 Weeks Plan: 2x/week for 4-6 weeks for pool based education and treatment to progress ex for: psoas and HS stretches LB ROM focussing extension core strength general strength program and work to I. Subjective Subjective: Back pain is worse than usual. Sees obed and put dorsal column stimulator in. Dr. Hubbard does not want to do fusion as it is a big surgery. Gets injections at times. Pain is 5/10 middle of LB. uses a rolling walker when it gets stiff. Went to sit on walker and it was not there and fell and had x ray: some degeneration in lower thoracic. worst pain 6.5/10 in last couple weeks and was due to being on feet alot which is typical. sleep is OK most of time, is on meds for this. Uses swimming pool at [facility] and does [employer] here on Tuesday. Wants to do pool refresher. Just moves around in pool currently and stretches. Disability from a number of things, back and depression. Hobbies: Call of duty and TV and can do pretty comfortably in adjustable bed. Legs feel weak but no symptoms. No regular exercises outside of water. Basic ADLS: getting done light housework at home. Is . Steps: none, 2 steps to garage no problem. Laundry in basement, spouse brings it up and down. Pain LBP: Pain Intensity (Out of 10): 4 Pain Intensity Range: 1 and 6 Comment: worse walking. Objective Objective: Walks slowy but I back to PT with short steps. Trasnfers bed and chair I. Steps reciprocal with one rail. LB AROM ext max limited and painful centrally, SB min limited and R painful centrally. flexion is not painful but tightness in HS quickly HS max tight at -35 90/90 test but - SLR and - slump. psoas also tight at 4 degrees hip extension and painful to lie fat on back, better with knees bent. reflexes 2/3 patella and achilles Sensation LE WNL to gross light touch. Strength 3+/5 LE without myotomal abnormalities. Balance/Special Test Scores Oswestry Low Back Score: 26 Goals Goal 1:: I appropriate pool based ex to limit future problems Goal Time Frame: 4-6 Weeks Goal 2:: Back pain 3/10 at worst adn 50% better Goal Time Frame: 4-6 Weeks Goal 3:: oswestry back score 8 or less Goal Time Frame: 4-6 Weeks Rehabilitation Potential Physical Therapy Diagnosis: limited ROM, tightness and weakness limiting funciton comfort at home. Anticipated Interventions Patient/Client Instruction: Educate patient on: Condition and Plan of Care For the Purpose of:: To decrease pain, To increase ROM, To improve nutrient delivery to tissue, To improve muscle performance and motor function, To increase tolerance to activity/condition/position, To improve ability of physical actions for home/community/work/leisure and To improve gait and locomotor functions Therapeutic Exercise to Include: Strength training, Flexibilty training, Gait and locomotor training, In an aquatic setting, Passive ROM, Active ROM and Dynamic Lumbar Stabilization For the Purpose of:: To decrease pain, To decrease swelling/inflammation, To improve nutrient delivery to tissue, To improve muscle performance and motor function, To increase tolerance to activity/condition/position, To improve ability of physical actions for home/community/work/leisure and To improve gait and locomotor functions Text: Thank you for the opportunity to evaluate your patient. For Medicare and Medicare HMO plans, please review the plan of care and approve it. It will need to be FAXED BACK to us at [phone] for Medicare purposes. For Medicare only, by signing this I certify the plan of care. Please let me know if there are questions or concerns regarding this plan of care. Physician Signature: Date:
--- NOTE | 2024-03-13 11:13 | HP.PTDCSUM ---
Discharge Summary D/C summary: It has been my pleasure to treat RYANNE RENTERIA referred by Dr. Barbara Schaffer MD, with the diagnosis of Back pain for a total of 10 visit(s). Discharge Date: 03/13/24 Please see the following information for a summary of their discharge status. Subjective Subjective: Getting stronger and will continue to workout 2x/week at [employer] pool adn 1x/week at , Comfortable with exercises. Dorsal stimulator 50%. Less sharp. Feels like she can get going on own for now. Will see Karime next week. Pain LBP: Pain Intensity (Out of 10): 0 Overall Improvement % Improvement: 50 Objective Objective/Function: ext max limited and painful centrally, SB min limited and flexion not painful or llimited. Walking is without antalgia today and safe and I. Goals Goal 1:: I appropriate pool based ex to limit future problems Goal Progress: Goal Met Goal 2:: Back pain 3/10 at worst adn 50% better Goal Progress: Goal Met Goal 3:: oswestry back score 8 or less Goal Progress: Not Progressing Plan Plan: d/c to continue pool ex 3x/week on own I. D/C Information d/c sentence: If there are questions or concerns regarding this patient's physical therapy, please feel free to call me at [phone]. Thank you for the referral of this patient. Sincerely, Jefferson Miles, DPT, OCS, CSCS Balance/Gait/Functional tests Balance/Special Test Scores Oswestry Low Back Score: 28 Improvement % Improvement: 50
== END 2024-03-13 14:48 | disposition home or self-care (01) ==
LOC: PT 11:00
PROVIDERS: PCP Student in an Organized Health Care Education/Training Program; Referring Provider Anesthesiology Pain Medicine; Visit Provider Anesthesiology Pain Medicine
DX: M54.9 Dorsalgia, unspecified (principal)
CPT/HCPCS: 97113; 97161; 97164

== ENCOUNTER → 2024-04-24 | Outpatient (CLI) | payer MEDICARE, SELFPAY ==
[2024-04-24 11:37] LABS: Absolute Lymphocyte Count 1.77 X10^3/uL (0.83-4.51); Absolute Neutrophil Count 4.1 X10^3/uL (2.0-7.7); Basophil# 0.05 X10^3/uL; Basophil% 0.8 % (0-1); Eosinophil# 0.18 X10^3/uL; Eosinophils% 2.8 % (0-5); Hematocrit 42.6 % (37-47); Hemoglobin 14.3 g/dL (12.0-15.0); Lymphocyte # 1.77 X10^3/ul (0.83-4.51); Lymphocyte % 27.1 % (19-41); Mean Corp Hgb Conc 33.6 g/dL (32-36); Mean Corpuscular Hgb 31.7 pg (27.0-32.0); Mean Corpuscular Volume 94.5 fL (81-99); Monocyte# 0.38 X10^3/uL; Monocyte% 5.8 % (0-10); NRBC Flagged by Analyzer 0 % (0-5); Neutrophil # 4.12 X10^3/uL (2.7-7.7); Neutrophil % 63.2 % (47-70); Platelet Count 235 K/mm3 (150-450); RBC Distribution Width CV 12.3 % (11.6-14.6); RBC Distribution Width SD 42.5 fl (35.1-43.9); Red Blood Count 4.51 M/mm3 (4.2-5.4); White Blood Count 6.5 K/mm3 (4.4-11.0)
[2024-04-24 11:47] LABS: ALB/GLOB Ratio 1.1 RATIO (0.9-2.4); AST(SGOT) 14 U/L (15-37); Alanine Aminotransfer ALT/SGPT 20 U/L (13-56); Alkaline Phosphatase 97 U/L (45-117); Anion Gap 5 (5-15); BUN 13 mg/dL (7-18); BUN/Creat Ratio 16.1 RATIO (10-20); CRP 7.69 mg/L (0.0-3.0); Calcium,Total 9.4 mg/dL (8.5-10.1); Chloride 107 mmol/L (98-107); Creatinine, Serum 0.81 mg/dL (0.55-1.02); EST Glomerular Filtration Rate 77 mL/min (>60); Est Glom Filt Rate - Afr Amer 94 mL/min (>60); Ferritin 60 ng/mL (8-252); Globulin 3.6 g/dL (2.2-4.2); Glucose 101 mg/dL (74-106); LDH 204 U/L (84-246); Protein, Total 7.6 g/dL (6.4-8.2); Sodium Level 138 mmol/L (136-145)
[2024-04-25 14:16] LABS: Anti-Centromere B Ab <0.2 AI (0.0-0.9); Anti-Chromatin <0.2 AI (0.0-0.9); Anti-Jo <0.2 AI (0.0-0.9); Anti-Mitochondrial AB <20.0 Units (0.0-20.0); Anti-Scleroderma-70 AB <0.2 AI (0.0-0.9); Anti-dsDNA Ab <1 IU/mL (0-9); RNP Ab 0.2 AI (0.0-0.9); SJOGREN'S Anti-SS-A test < 0.2 AI (0.0-0.9); SJOGREN'S Anti-SS-B test < 0.2 AI (0.0-0.9); Smith Ab <0.2 AI (0.0-0.9)
[2024-04-25 16:10] LABS: Anti-Smooth Muscle ABS 4 Units (0-19); Ceruloplasmin 33.4 mg/dL (19.0-39.0); Copper, Serum or Plasma 129 ug/dL (80-158); Cytoplasmic Ab (C-ANCA) <1:20 titer (Neg:<1:20); Perinuclear Ab (P-ANCA) <1:20 titer (Neg:<1:20)
== END | disposition home or self-care (01) ==
LOC: LAB 11:10
PROVIDERS: PCP Student in an Organized Health Care Education/Training Program; Referring Provider Internal Medicine Gastroenterology; Visit Provider Internal Medicine Gastroenterology
DX: K76.0 Fatty (change of) liver, not elsewhere classified (principal); K21.9 Gastro-esophageal reflux disease without esophagitis; E83.119 Hemochromatosis, unspecified
CPT/HCPCS: 36415; 80053; 82390; 82525; 82728; 83516; 83615; 85025; 86140; 86225; 86235; 86256

== ENCOUNTER → 2024-05-11 | Outpatient (CLI) | payer MEDICARE, SELFPAY ==
--- NOTE | 2024-05-11 08:52 | US_ITS ---
STUDY: ABDOMINAL ULTRASOUND - ELASTOGRAPHY REASON FOR VISIT: Female, 59 years old. Nonalcoholic steatohepatitis TECHNIQUE: Liver stiffness measurements were obtained on a Selectron RS 85 ultrasound machine using a CA 1-7 probe following the U guidelines. 3 measurements were obtained using a 2-D-SWE method. TheIQR/M was 12% suggesting a quality data set. TECHNICAL QUALITY: Adequate. COMPARISON: FINDINGS: Liver: 8 mm cyst in the left lobe of the liver. 1.8 cm septated cyst in the right lobe of the liver. Median liver stiffness measured 9.2 kPa. Abdomen: There is no demonstrated mass lesion. IMPRESSION: Liver stiffness measures 9.2 kPa compatible with F2-F3 Metavir score. Electronically Signed: Marcus Hill MD at 11:56 EDT , STUDY: ABDOMINAL ULTRASOUND - LEFT UPPER QUADRANT REASON FOR EXAM: Female, 59 years old. IGLESIAS, Spleen- for LUQ pain TECHNIQUE: Transabdominal ultrasound was performed with real-time and static jorge scale imaging. TECHNICAL QUALITY: Adequate. COMPARISON: None. FINDINGS: Spleen: There is splenomegaly. The spleen measures 12.7 cm. Left Kidney: Normal size of the left kidney. The left kidney measures 8.4 cm. Normal renal cortex. The left cortex measures 1.2 cm. There is no demonstrated renal mass or cyst. There is no left hydronephrosis. US/ABD Limited w/ Elastography IMPRESSION: Mild splenomegaly. Electronically Signed: Marcus Hill MD at 11:57 EDT ,
== END | disposition home or self-care (01) ==
LOC: US 08:50
PROVIDERS: PCP Student in an Organized Health Care Education/Training Program; Referring Provider Internal Medicine Gastroenterology; Visit Provider Internal Medicine Gastroenterology
DX: K21.9 Gastro-esophageal reflux disease without esophagitis (principal); K76.0 Fatty (change of) liver, not elsewhere classified; R10.12 Left upper quadrant pain
CPT/HCPCS: 76705; 76981

== ENCOUNTER 2024-07-27 16:07 | Observation (INO) | payer MEDICARE, SELFPAY ==
[2024-07-27] VITALS (7 sets, daily range): BP systolic 135–143; BP diastolic 75–88; PULSE 62–96; RESP 17–19; TEMP 36.1–36.9; O2SAT 90–97; BMI 32.5; BMI 32.3
--- NOTE | 2024-07-27 16:34 | EKG12_ITS ---
Test Reason : Blood Pressure : / mmHG Vent. Rate : 070 BPM Atrial Rate : 070 BPM P-R Int : 198 ms QRS Dur : 080 ms QT Int : 384 ms P-R-T Axes : -04 010 000 degrees QTc Int : 414 ms Normal sinus rhythm Normal ECG Confirmed by Jabari Del Castillo ([id number]), brands editor TED TEE ([id number]) on 07/30/2024 10:48:28 AM Referred By: Young Cortes Confirmed By:Jabari Del Castillo
--- NOTE | 2024-07-27 16:41 | EX.ED.VIS.EY ---
HPI <NATALY Garzon - Last Filed: 07/27/24 18:55> History of Present Illness Chief Complaint: Eye Problem Narrative Narrative: Patient is a 59-year-old female with history of leaky valve disease, SVT, GERD who presents to the emergency department for multiple complaints. Patient states 2 to 3 hours ago, she felt flushed and hot, she states that when she looks at something she gets double vision, she also was feeling lightheaded, woozy. Patient denies any weakness to her upper or lower extremities. Patient denies any other complaints. Patient did have mono for the last 2 months, she states have these going back to normal. PFSH <NATALY Garzon - Last Filed: 07/27/24 18:55> [facility] Medical History Alcohol use Ambulates with cane Anxiety Asthma Back pain Borderline personality disorder Cardiology follow-up encounter CPAP (continuous positive airway pressure) dependence Depression Easy bruising Fatty liver Former smoker Gastric reflux H/O transesophageal echocardiography (ELAINE) for monitoring Hematuria History of echocardiogram History of edema History of emotional problems History of IBS History of irregular heartbeat History of stress test Major depressive disorder Non-rheumatic mitral regurgitation Nonrheumatic mitral (valve) prolapse Normal Holter exam ARLEN (obstructive sleep apnea) Osteoarthritis 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 Post-menopausal Premature atrial contraction Premature ventricular contraction Pulmonary hypertension Restless legs Seasonal allergies Shortness of breath on exertion SVT (supraventricular tachycardia) Tachycardia Wears dentures Wears glasses Home Medications ?Medication ?Instructions ?Recorded ?Last Taken ?Type albuterol sulfate 90 mcg/actuation 2 puff inhalation Q4H PRN Wheezing 01/27/21 Unknown History aerosol inhaler (ProAir HFA) magnesium oxide 400 mg PO DAILY 01/27/21 Unknown History levocetirizine 5 mg tablet (Xyzal) 5 mg PO DAILY 09/13/22 Unknown History quetiapine 200 mg tablet (Seroquel) 400 mg PO QHS 02/01/23 Unknown History furosemide 20 mg tablet 20 mg PO DAILY 03/04/23 Unknown History losartan 25 mg tablet 25 mg PO DAILY 04/29/23 05/03/23 History pantoprazole 40 mg tablet,delayed 40 mg PO DAILY #90 tabs 07/12/23 Unknown Rx release clonazepam 1 mg tablet 1 mg PO BID PRN anxiety 04/24/24 Unknown History lamotrigine 200 mg tablet 400 mg PO DAILY 04/24/24 Unknown History (Lamictal) atorvastatin 10 mg tablet 10 mg PO DAILY 07/27/24 Unknown History metoprolol succinate 25 mg 50 mg PO BID 07/27/24 Unknown History tablet,extended release 24 hr Allergy/AdvReac Type Severity Reaction Status Date / Time bethanechol (From Urecholine) Allergy Mild saliva Verified 07/27/24 16:07 adhesive tape Allergy rash Verified 07/27/24 16:07 Sulfa (Sulfonamide AdvReac Rash Verified 07/27/24 16:07 Antibiotics) Family History Mother Anxiety Arthritis Depression Mental disorder Osteoporosis Atrial fibrillation Sister Breast cancer Diabetes Brother Diabetes Father CAD (coronary artery disease) History of coronary artery bypass surgery Atrial fibrillation Gallbladder cancer Diabetes Heart disease Alcoholism Aunt Colon cancer Other Hypertension Melanoma Surgical History History of bladder surgery (~1971) History of cardiac catheterization History of rotator cuff surgery History of surgery History of tonsillectomy (~2008) Hx of arthroscopy of right knee (~2017) Social History household members: spouse current occupational status: unemployed 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 Positive for weakness Eyes: Negative for vision loss, vision change. Double vision ENT: Negative for any sore throat, ear pain, congestion Cardiovascular: Negative for any chest pain, tightness, palpitations Respiratory: Negative for any cough, sputum production, hemoptysis, dyspnea, dyspnea on exertion, orthopnea Gastrointestinal: Negative for any abdominal pain, nausea, vomiting, diarrhea, constipation, blood in stool, blood in vomit : Negative for any urinary frequency, dysuria, retention, blood in urine Muscle skeletal: Negative for any neck pain, back pain Neurological: Negative for any headache, syncope. Positive for a feeling of dizziness/wooziness Skin: Negative for any rashes, itching, abrasions, lacerations Psychiatric: Negative for any depression, anxiety, stress, suicidal ideation, homicidal ideation Hematologic: Negative for any excessive bruising, easy bleeding EXAM <NATALY Garzon - Last Filed: 07/27/24 18:55> Physical Exam Narrative Exam Narrative: Vital signs reviewed. HEET: Head normocephalic atraumatic, TMs clear bilaterally. Posterior pharynx is clear, moist mucous membranes. Nares clear bilaterally. Pupils are equal round reactive to light. Patient has no facial droop. No neurological focal deficit. Patient when she looks at me with 1 eye she does not have the vision change, is only with both eyes. Patient's face is slightly flushed Neck: Supple with no lymphadenopathy or tenderness. No signs of meningismus. Cardiac: Regular rate and rhythm no murmurs gallops or rubs, equal peripheral pulses bilaterally. Respiratory: Lungs clear to auscultation bilaterally. No chest tenderness. Abdomen: Soft, nontender, nondistended. No abdominal bruit or pulsatile masses. No hepatosplenomegaly Extremities: No peripheral edema, no signs of gross trauma or deformity. Active full range of motion of all extremities. Neuro: Cranial nerves II through XII intact, no focal neurological deficits. NIH stroke scale 0 Skin: Clean dry and intact with no rash, purpura, petechiae, vesicles or pustules. Backs/flank: No CVA tenderness, no midline spinal tenderness, no deformity. Psych: Normal mood and affect. No SI, HI or acute psychosis. Const Vital Signs: 07/27/24 16:08 Temperature 97 F L Temperature Source Temporal Pulse Rate 76 Respiratory Rate 18 Blood Pressure 140/88 H Blood Pressure Mean 105 Pulse Ox 96 Oxygen Delivery Method Room Air Positive well nourished and well developed General Appearance ED: well developed MDM <NATALY Garzon - Last Filed: 07/27/24 18:55> MDM Treatment and Re-Evaluation Narrative: Differential diagnosis includes however is not limited to: Ocular migraine, viral syndrome such as COVID-19 influenza, ocular stroke, CVA, TIA Patient appears generally well, vital signs are stable, patient is nontoxic-appearing. Presenting to the emergency department for complaints of vision change, feeling of weakness, dizziness, wooziness, feeling flushed. Patient's NIH stroke score is 0. Adenopathy this is a CVA/TIA. Patient will receive a CTA of the head and neck, as well as basic laboratory values, COVID-19, influenza, RSV test. IV fluids and chest x-ray will be given. Patient will need to be reevaluated. All radiologic examinations were read, reviewed by the emergency department attending. From these reads, a plan of care will be put in place.\ Patient's CBC was unremarkable, chemistries were unremarkable, lipase was negative. Patient's COVID, RSV, flu was negative. CTA of the head and neck shows apparent occlusion of the P3 segment of the right posterior cerebral artery, no other significant arthrosclerotic disease of the head or neck. I did speak with the radiologist regarding this. At this time, patient has no visual field loss, patient has a stable gait. Secondary to the finding of the CT scan, patient will be admitted to the hospital. The ER attending was able to speak to [facility] neurology, patient is stable to stay here for further workup. I spoke with the patient, she is agreeable. <Dr. Young Cortes MD - Last Filed: 07/27/24 18:42> [facility] Narrative Medical decision making narrative: I have personally performed a face to face assessment of the patient and have reviewed the RD Note. I performed a substantive portion of the visit including all aspects of the following. My bunch findings include: History is patient states sudden onset of diplopia and dizziness that felt like lightheadedness but not near syncopal or syncopal, somewhere between 2 PM and 3 PM, she thinks closer to 3. Symptoms persist upon ED arrival, but upon my evaluation after [employer] saw the patient, she states symptoms are completely resolved. Binocular diplopia, symptoms were not present whenever she would close 1 eye or the other. She denies any symptoms of a visual field cut. She denies headache, palpitations, chest pain or dyspnea. She denies taking any antiplatelet or anticoagulant medications. No recent head injuries. No history of stroke. Exam is NIHSS 0 including visual field exam. No aphasia. No hemineglect. Heart RRR no murmurs rubs or gallops, the rest of the exam is normal. Medical Decison Making concern for possibility of central vertigo here although her symptoms are not frankly vertiginous, the diplopia is concerning especially binocular. She was sent for CT angiography of the head and neck, I reviewed the images and report, and spoke with the radiologist. There is a right P3 segment occlusion with collateral flow. I spoke with [facility] stroke neurology who agrees that the patient is not of her doctor be candidate and admission is recommended which we agree with. Other additions or changes: [None] Discharge Plan Dx/Rx/DC Orders Clinical Impression: TIA (transient ischemic attack) Disposition Disposition: Acute Care Hospital [facility] <Dr. Young Cortes MD - Last Filed: 07/27/24 18:42> Stroke Documentation Questions Stroke Team Activated: No (Symptoms resolved upon MD evaluation) Was Patient considered for Endovascular Intervention?: No-CTA negative, determined not to be an endovascular candidate (Negative for LVO, positive for third segment occlusion no emergent perfusion scan indicated) IV Thrombolytic Administered: No (Due to symptoms resolved)
[2024-07-27 16:43] LABS: Bedside Glucose 92 mg/dL (74-106)
[2024-07-27] MEDS: 0.9% Normal Saline (1000mL) 1,000 ML 999 ML IV (16:45)
[2024-07-27] MEDS: Ondansetron 4 MG/2 ML Vial IV (16:45)
--- NOTE | 2024-07-27 16:48 | CT_ITS ---
STUDY: CTA HEAD AND NECK WITH CONTRAST REASON FOR EXAM: Female, 59 years old. vision changes RADIATION DOSAGE (If Supplied By Facility): CTDIvol = ( 29.21 ) mGy, DLP = ( 1467.53 ) mGycm TECHNIQUE: CT angiography was performed with a multi-detector CT scanner. Data acquisition was obtained from the skull base through the vertex following intravenous administration of IV 75mL [id number]-[id number]. MIP images were reconstructed from the axial data set. Post-processing of the angiographic images was performed, with multiplanar reformation and 3D reconstruction. Individualized dose optimization techniques were used for this CT. COMPARISON: No relevant priors. FINDINGS: Normal bilateral petrous carotid arteries. Normal right cavernous carotid artery with a normal supraclinoid bifurcation. Normal left cavernous carotid artery with a normal supraclinoid bifurcation. Normal right A1 segments of the anterior cerebral artery. Normal left A1 segments of the anterior cerebral artery. Anterior communicating artery not visualized consistent with normal variant). Normal bilateral A2 segments of the anterior cerebral arteries. Normal right M1 and M2 segments of the middle cerebral arteries, with a normal M1 bifurcation. Normal left M1 and M2 segments of the middle cerebral arteries, with a normal M1 bifurcation. Hypoplastic posterior communicating arteries which may be consistent with normal variant Normal bilateral vertebral arteries. Normal basilar artery with a normal basilar bifurcation. The visualized bilateral superior cerebellar (SCA) arteries are normal. Normal bilateral P1, P2 and visualized P3 segments of the left posterior cerebral artery.. Nonvisualized P3 segment of the right posterior cerebral artery suggesting occlusion with apparent collaterals There is no demonstrated aneurysm of the [place] of [place]. There is no demonstrated abnormality of the visualized brain. AORTIC ARCH: Normal visualized aortic arch. Normal origins of the brachiocephalic, left common carotid, and left subclavian arteries. RIGHT CAROTID ARTERIES: Normal right common carotid artery (CCA). Normal right common carotid bulb. Normal origin of the right internal carotid (ICA) artery without a hemodynamically significant stenosis. Normal visualized cervical portion of the right internal carotid artery. Normal origin of the right external carotid artery (ECA). LEFT CAROTID ARTERIES: Normal left common carotid artery (CCA). Normal left common carotid bulb. Normal origin of the left internal carotid (ICA) artery without a hemodynamically significant stenosis. Normal visualized cervical portion of the left internal carotid artery. Normal origin of the left external carotid artery (ECA). VERTEBRAL ARTERIES: Normal bilateral vertebral arteries. 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 No other significant atherosclerotic disease of the head or neck N.B. : The above Results were Read Back by Jensen Singh MD to Leland Paredes NP, and understanding confirmed on 07/27/2024 17:44:02 (ET). Electronically Signed: Jensen Singh MD at 17:47 EDT ,
[2024-07-27 17:18] LABS: ALB/GLOB Ratio 1.2 RATIO (0.9-2.4); AST(SGOT) 15 U/L (15-37); Alanine Aminotransfer ALT/SGPT 15 U/L (13-56); Alkaline Phosphatase 78 U/L (45-117); Anion Gap 7 (5-15); BUN 11 mg/dL (7-18); BUN/Creat Ratio 12.4 RATIO (10-20); Calcium,Total 9.4 mg/dL (8.5-10.1); Chloride 108 mmol/L (98-107); Creatinine, Serum 0.89 mg/dL (0.55-1.02); EST Glomerular Filtration Rate 69 mL/min (>60); Est Glom Filt Rate - Afr Amer 84 mL/min (>60); Estimated Creatinine Clearance 74.95 ml/min; Globulin 3.2 g/dL (2.2-4.2); Glucose 99 mg/dL (74-106); Lipase 15 U/L (13-75); Potassium 3.8 mmol/L (3.5-5.1); Protein, Total 7.2 g/dL (6.4-8.2); Sodium Level 140 mmol/L (136-145)
--- NOTE | 2024-07-27 17:30 | RAD_ITS ---
STUDY: X-RAY CHEST REASON FOR EXAM: Female, 59 years old. cough TECHNIQUE: PA and lateral COMPARISON: August 14, 2020 FINDINGS: The lungs are clear and expanded. There is no demonstrated pleural abnormality. Normal size heart. Normal mediastinum and lori. Normal visualized pulmonary arteries. Normal visualized aortic arch and descending thoracic aorta. Spinal stimulator noted in the thoracolumbar canal.. Normal visualized thoracic spine. Normal visualized ribs, clavicles, and shoulders. There is no demonstrated abnormality of the visualized soft tissue structures of the upper abdomen. RAD/Chest PA and Lateral IMPRESSION: No acute cardiopulmonary pathology Electronically Signed: Jensen Singh MD at 17:52 EDT ,
[2024-07-27 17:38] LABS: Mucous, Urine 0 SEEN /hpf (<or=2+); Red Blood Cells-Urine 0 SEEN /hpf (0-5); Squamous Epithelial Cells - UA 0 SEEN /hpf (5-10)
[2024-07-27 17:39] LABS: Absolute Lymphocyte Count 2.48 X10^3/uL (0.83-4.51); Absolute Neutrophil Count 4.3 X10^3/uL (2.0-7.7); Basophil# 0.06 X10^3/uL; Basophil% 0.8 % (0-1); Eosinophil# 0.24 X10^3/uL; Eosinophils% 3.2 % (0-5); Hematocrit 39.9 % (37-47); Hemoglobin 13.9 g/dL (12.0-15.0); Lymphocyte # 2.48 X10^3/ul (0.83-4.51); Lymphocyte % 32.9 % (19-41); Mean Corp Hgb Conc 34.8 g/dL (32-36); Mean Corpuscular Volume 91.7 fL (81-99); Mean Platelet Vol. 12.2 fl (6.2-12.0); Monocyte# 0.46 X10^3/uL; Monocyte% 6.1 % (0-10); NRBC Flagged by Analyzer 0 % (0-5); Neutrophil # 4.28 X10^3/uL (2.7-7.7); Neutrophil % 56.7 % (47-70); Platelet Count 236 K/mm3 (150-450); RBC Distribution Width CV 12.1 % (11.6-14.6); RBC Distribution Width SD 40.3 fl (35.1-43.9); Red Blood Count 4.35 M/mm3 (4.2-5.4); White Blood Count 7.5 K/mm3 (4.4-11.0)
[2024-07-27 17:59] LABS: Color, Urine Straw (Yellow); Glucose, Dipstick Normal (Normal); Ketone-Dipstick Negative (Negative); Leukocyte Esterase-Dipstick 25 /ul (Negative); Nitrite-Dipstick Negative (Negative); Occult Blood-Urine Negative /ul (Negative); Protein-Dipstick Negative (Negative); Specific Gravity, Urine 1.005 (1.002-1.030); Urine Bilirubin Dipstick Negative (Negative); Urine Clarity Clear (Clear); Urine Urobilinogen Normal (Normal)
--- NOTE | 2024-07-27 18:23 | ED.RN ---
Called [facility] neurology. Dr Cortes requested to speak to the neurologist.
[2024-07-27 18:42] LABS: White Blood Cells 0-5 SEEN /hpf (0-5)
[2024-07-27 18:43] LABS: Bacteria RARE /hpf (None Seen)
[2024-07-27] MEDS: LORazepam 0.5 MG Tablet PO (19:05)
--- NOTE | 2024-07-27 19:25 | PCM.HP.STD ---
HPI - General General Date of Admission: 07/27/24 Date of Service: 07/27/24 Chief Complaint: Double vision, light headed, woozy HPI Narrative RYANNE RENTERIA, is a 59 F history of chronic pain with a dorsal spinal stimulator, SVT, GERD, anxiety, tachycardia who presented to [facility] ED 07/27/2024 with 2 to 3 hours of double vision, flushed appearance, woozy and generally weak feeling. Symptoms resolved but patient had CTA given the diplopia which showed a P3 occlusion with collaterals so neurology was contacted and did not think patient needed transferred and felt that she could be admitted here for further workup. Hospitalist contacted for admission for TIA/CVA workup. Patient evaluated with significant other at bedside, patient had been in her usual health until 2 to 3 hours prior to arrival when she had double vision (closing 1 eye would resolve this), woozy/lightheaded/weak feeling and was visibly flushed per significant other that lasted until she was here in the ED. Her vision was not blurry but she was seeing double and covering 1 eye would reveal normal vision, she reports she mostly felt generally weak but also was flushed and beet red per significant other and all of the symptoms were present until she presented to the hospital. Patient not presently having further symptoms. Denies that this is ever happened before. Did not eat earlier today but reports this is normal for her. She usually drinks 1 drink in the evenings, no more, no loss and is on chronic anxiety medication, also has a dorsal spinal stimulator due to chronic back pain and follows with pain management. She has medical marijuana card and uses THC regularly but denies any other drug or substance use. Does report recently having mono that has resolved and she also had sinus infection for which she was on amoxicillin up until a week ago but the symptoms have resolved as well. No chest pain, did have a little bit of nausea during this episode but this is also resolved. [facility] Medical History Alcohol use Ambulates with cane Anxiety Asthma Back pain Borderline personality disorder Cardiology follow-up encounter CPAP (continuous positive airway pressure) dependence Depression Easy bruising Fatty liver Former smoker Gastric reflux H/O transesophageal echocardiography (ELAINE) for monitoring Hematuria History of echocardiogram History of edema History of emotional problems History of IBS History of irregular heartbeat History of stress test Major depressive disorder Non-rheumatic mitral regurgitation Nonrheumatic mitral (valve) prolapse Normal Holter exam ARLEN (obstructive sleep apnea) Osteoarthritis 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 Post-menopausal Premature atrial contraction Premature ventricular contraction Pulmonary hypertension Restless legs Seasonal allergies Shortness of breath on exertion SVT (supraventricular tachycardia) Tachycardia Wears dentures Wears glasses Home Medications ?Medication ?Instructions ?Recorded ?Last Taken ?Type magnesium oxide 400 mg PO DAILY 01/27/21 07/27/24 History levocetirizine 5 mg tablet (Xyzal) 5 mg PO DAILY 09/13/22 07/27/24 History furosemide 20 mg tablet 20 mg PO DAILY 03/04/23 07/27/24 History losartan 25 mg tablet 25 mg PO DAILY 04/29/23 07/27/24 History pantoprazole 40 mg tablet,delayed 40 mg PO DAILY #90 tabs 07/12/23 07/27/24 Rx release clonazepam 1 mg tablet 1 mg PO BID PRN anxiety 04/24/24 07/27/24 History lamotrigine 200 mg tablet 400 mg PO DAILY 04/24/24 07/27/24 History (Lamictal) albuterol sulfate 90 mcg/actuation 2 inh inhalation Q4H PRN shortness 07/27/24 Unknown History aerosol inhaler of breath or wheezing atorvastatin 10 mg tablet 10 mg PO DAILY 07/27/24 07/27/24 History clonazepam 1 mg tablet 0.5 mg PO 1200 PRN anxiety 07/27/24 07/27/24 History metoprolol succinate 50 mg 50 mg PO DAILY 07/27/24 07/27/24 History tablet,extended release 24 hr metoprolol tartrate 50 mg tablet 50 mg PO DAILY PRN HIGH BLOOD 07/27/24 Unknown History PRESSURE quetiapine 400 mg tablet 400 mg PO QHS 07/27/24 07/26/24 History Allergy/AdvReac Type Severity Reaction Status Date / Time bethanechol (From Urecholine) Allergy Mild saliva Verified 07/27/24 16:07 adhesive tape Allergy rash Verified 07/27/24 16:07 Sulfa (Sulfonamide AdvReac Rash Verified 07/27/24 16:07 Antibiotics) Family History Mother Anxiety Arthritis Depression Mental disorder Osteoporosis Atrial fibrillation Sister Breast cancer Diabetes Brother Diabetes Father CAD (coronary artery disease) History of coronary artery bypass surgery Atrial fibrillation Gallbladder cancer Diabetes Heart disease Alcoholism Aunt Colon cancer Other Hypertension Melanoma Surgical History History of bladder surgery (~1971) History of cardiac catheterization History of rotator cuff surgery History of surgery History of tonsillectomy (~2008) Hx of arthroscopy of right knee (~2017) Social History household members: spouse current occupational status: unemployed 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 Smoking Status: Former smoker quit date: 11/07/09 pack-years: 20 Electronic Cigarette Use: not used alcohol intake: current alcohol intake frequency: a few times a month Alcohol type: beer substance use type: does not use caffeine: Yes Type: coffee Number of servings: 1 what type of physical activity do you participate in: swimming frequency: 3-4 times per week do you feel safe at home: Yes ROS ROS Narrative General: Denies fever/chills HENT: Denies headache, denies stuffy nose, denies sore throat EYES: [place] like she had double vision, since resolved Resp: Denies cough, denies shortness of breath Cardiac: Denies chest pain GI: Denies abdominal pain, denies changes in bowel, did have a little bit of nausea earlier : Denies changes in urination Extremity: Denies swelling MSK: Some generalized weakness Neuro: Denies any numbness/tingling Heme: Denies any bleeding or bruising Skin: Denies rashes, did hurt a right toe due to stubbing it no other complaints Psychiatric: Feels anxious Vital Signs Vital Signs Vital Signs: 07/27/24 16:08 07/27/24 17:07 07/27/24 17:58 Temperature 97 F L Temperature Source Temporal Pulse Rate 76 96 73 Respiratory Rate 18 17 19 H Blood Pressure 140/88 H 143/78 H 136/76 H Blood Pressure Mean 105 99 96 Pulse Ox 96 97 97 Oxygen Delivery Method Room Air Room Air 07/27/24 18:51 07/27/24 19:00 Temperature 98 F Temperature Source Pulse Rate 78 72 Respiratory Rate 19 H Blood Pressure 140/75 H 135/86 H Blood Pressure Mean 96 102 Pulse Ox 97 95 Oxygen Delivery Method Room Air Weight Weight: 88.9 kg Body Mass Index (BMI) 32.5 Physical Exam Narrative General: Alert, oriented, no apparent distress HEENT: Atraumatic, normocephalic Eyes: Anicteric, normal conjunctiva, extraocular movements intact, pupils equal Neck: Supple Respiratory: Clear to auscultation bilaterally, normal respiratory effort Cardiovascular: Regular rate and rhythm GI: Soft, nontender, nondistended Extremities: No edema Musculoskeletal: Strength 5 out of 5 in right upper extremity, 5 out of 5 left upper extremity, 5 out of 5 right lower extremity, 5 out of 5 left lower extremity Neuro: No overt focal neurological deficits, cranial nerves II through XII intact, [id number] without significant difficulty bilaterally Skin: No rashes appreciated Psych: Cooperative Results Lab / Micro Data 07/27/24 16:40 07/27/24 16:40 Labs: Laboratory Results - last 24 hr 07/27/24 16:24: POC Glucose 92 07/27/24 16:40: WBC 7.5, RBC 4.35, Hgb 13.9, Hct 39.9, MCV 91.7, MCH 32.0, MCHC 34.8, RDW Std Deviation 40.3, RDW Coeff of Bravo 12.1, Plt Count 236, MPV 12.2 H, Immature Gran % (Auto) 0.300, Neut % (Auto) 56.7, Lymph % (Auto) 32.9, [place] % (Auto) 6.1, Eos % (Auto) 3.2, Baso % (Auto) 0.8, Absolute Neuts (auto) 4.3, Absolute Lymphs (auto) 2.48, Nucleated RBC % 0, Sodium 140, Potassium 3.8, Chloride 108 H, Carbon Dioxide 25.0, Anion Gap 7, BUN 11, Creatinine 0.89, Estim Creat Clear Calc 74.95, Est GFR (MDRD) Af Amer 84, Est GFR (MDRD) Non-Af 69, BUN/Creatinine Ratio 12.4, Glucose 99, Calcium 9.4, Total Bilirubin 0.70, AST 15, ALT 15, Alkaline Phosphatase 78, Total Protein 7.2, Albumin 4.0, Globulin 3.2, Albumin/Globulin Ratio 1.2, Lipase 15 07/27/24 17:29: Urine Color Straw, Urine Clarity Clear, Urine pH 7.0, Ur Specific [place] 1.005, Urine Protein Negative, Urine Glucose (UA) Normal, Urine Ketones Negative, Urine Occult Blood Negative, Urine Nitrite Negative, Urine Bilirubin Negative, Urine Urobilinogen Normal, Ur Leukocyte Esterase 25 H, Urine RBC 0 SEEN, Urine WBC 0-5 SEEN, Ur Squamous Epith Cells 0 SEEN, Urine Bacteria RARE, Urine Mucus 0 SEEN Micro: Microbiology 07/27/24 16:47 Mucosa - Nasopharyngeal SARS-CoV-2, Influenza & RSV (PCR) - Final Imaging Radiology Impression Head/Neck CTA 07/27/24 16:48 IMPRESSION: 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 No other significant atherosclerotic disease of the head or neck N.B. : The above Results were Read Back by Jensen Singh MD to Leland Paredes NP, and understanding confirmed on 07/27/2024 17:44:02 (ET). 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 No other significant atherosclerotic disease of the head or neck N.B. : The above Results were Read Back by Jensen Singh MD to Leland Paredes NP, and understanding confirmed on 07/27/2024 17:44:02 (ET). Electronically Signed: Jensen Singh MD at 17:47 EDT , Chest X-Ray 07/27/24 17:30 IMPRESSION: No acute cardiopulmonary pathology Electronically Signed: Jensen Singh MD at 17:52 EDT , Assessment & Plan Assessment/Plan (1) Double vision: PLAN: Plan # Transient double vision -There is concern for TIA in ED, CTA with P3 occlusion but this had collaterals and appeared chronic -ED Attending had discussed with neurology who did not think patient needed transferred and felt admission and our institution for further workup was reasonable -Admit to tele -EKG normal sinus rhythm with QTc of 414 -patient has dorsal spinal stimulator and is unclear if she can get MRI. She does report receiving a letter from the company however that said if she turns it off it made not turned back on and she may have to have an entirely new unit placed -Given this and complete resolution of symptoms will schedule CT head at 24 hrs. Neuro consulted, if felt MRI is necessary will need to explore if stim is MRI compatible -NIH q4hr -asa, statin -Echo w/ bubble study -PT/OT/Speech eval -Hold BP medications to allow for permissive hypertension for 24 hours unless SBP greater than 220 or DBP greater than 120 or until stroke is ruled out however given history of SVT we will continue patient's metoprolol holding losartan #Light headedness/weakness -While patient was sitting down, did not change with position changes or standing or laying, resolved now -will check orthostats -Has a history of SVT but did not feel like she was having any chest pain or palpitations, will monitor on telemetry -Continue metoprolol at this time -Given IVF in ED, holding lasix and losartan -Presently vitally stable -Will check TSH -Glucose 92 on presentation # Chronic back pain -With dorsal spinal stimulator -Follows with Dr. Schaffer -Pt reports receiving letter in the mail that if she turns off spinal stim it may not turn back on and new unit would need placed -If able to avoid turning this off that would be ideal, repeat CT head at 24 hours, teleneuro consult -Tylenol as needed, reports she has been told previously she cannot take pain medication due to being on anxiety medication -Patient also uses THC on an as-needed basis and has a medical marijuana card #GERD -Continue PPI # History of anxiety/mood disorder -Continue Seroquel, Lamictal, Klonopin # History of hypertension -Permissive hypertension as above, will continue metoprolol given history of SVT and unclear etiology of her lightheadedness/flushing/weakness -Hold losartan and furosemide -Received IV fluids in the ED # Alcohol use -Patient usually has 1 drink daily without significant variations in this drinking habit -Already taking Klonopin, low suspicion patient will have acute withdrawal given above #DVT ppx: Lovenox subcu Angela Rosa MD Time spent in the patient's overall evaluation,decision-making process, review of diagnostic data, adjustment of management, discussion with other providers, nursing nursing and ancillary staff involved in patient's care documentation, 58 minutes Charges/Coding Visit Charges Inpatient E&M: 82730 Init Hosp L2
--- NOTE | 2024-07-27 19:37 | ECHOD_ITS ---
Reason For Study: TIA/Stroke Procedure This was a 2D Doppler, Color Flow transthoracic echocardiogram. Exam performed portable in patient room. Left Ventricle Normal LV size. The estimated ejection fraction is 60 %. No evidence for diastolic dysfunction. No regional wall motion abnormalities noted. Right Ventricle Normal RV size. Normal systolic function. Atria The left and right atria are normal. No doppler evidence for ASD. Mitral Valve There is no mitral valve stenosis. Mild (1+) mitral valve insufficiency. Tricuspid Valve There is no tricuspid stenosis. Trivial tricuspid valve insufficiency. Unable to estimate RV systolic pressure due to insufficient tricuspid regurgitant envelope. Aortic Valve Trisinus/trileaflet aortic valve. There is no aortic stenosis. Trivial aortic valve insufficiency. Pulmonic Valve There is no pulmonic valvular stenosis. No pulmonic valve insufficiency. Great Vessels Mildly dilated ascending aorta. Pericardium/Pleural No pericardial effusion. MMode/2D Measurements & Calculations LVIDd: 4.6 cm IVSd: 0.77 cm Ao root diam: 3.6 cm LVIDs: 3.0 cm LVPWd: 0.79 cm RVDd: 3.0 cm FS: 34.1 % asc Aorta Diam: 4.1 cm LAV(MOD-bp): 44.8 ml LVAd ap4: 22.7 cm2 LAV(MOD-bp) Indexed: 22.8 ml/m2 LVLd ap4: 7.4 cm LAV(MOD-sp2): 45.7 ml EDV(MOD-sp4): 59.8 ml LAV(MOD-sp4): 41.5 ml EDV(sp4-el): 59.7 ml LVAs ap4: 12.7 cm2 LVLs ap4: 6.3 cm ESV(MOD-sp4): 21.9 ml ESV(sp4-el): 21.8 ml EF(MOD-sp4): 63.4 % EF(sp4-el): 63.4 % SV(MOD-sp4): 37.9 ml SV(sp4-el): 37.9 ml LA A4 area: 16.9 cm2 LA dimension(2D): 3.8 cm RA A4 area: 13.6 cm2 TAPSE: 2.1 cm Time Measurements MV dec time: 0.19 sec Doppler Measurements & Calculations MV E max karan: 89.1 cm/sec Lat Peak E' Karan: 11.6 cm/sec Med Peak E' Karan: 7.5 cm/sec MV A max karan: 64.9 cm/sec E/E' lat: 7.7 E/E' med: 11.8 MV E/A: 1.4 Ao V2 max: 148.2 cm/sec LV V1 max: 126.3 cm/sec MV dec slope: 472.5 cm/sec2 Ao max P.8 mmHg LV V1 max P.4 mmHg Ao V2 mean: 100.7 cm/sec LV V1 mean P.5 mmHg Ao mean P.7 mmHg LV V1 mean: 87.0 cm/sec Ao V2 VTI: 33.1 cm LV V1 VTI: 27.1 cm AV (velocity ratio): 0.82 PA V2 max: 81.4 cm/sec TR max karan: 256.5 cm/sec TR max P.3 mmHg ECHO/Echo Complete Interpretation Summary The estimated ejection fraction is 60 %. No evidence for diastolic dysfunction. Mild (1+) mitral valve insufficiency. Mildly dilated ascending aorta. Trivial aortic valve insufficiency. Ordering Physician: Angela Rosa Referring Physician: Agapito Saucedo Performed By: Jazmyne Mccormick, KARON, RVT
[2024-07-27] MEDS: QUEtiapine 100 MG Tablet 400 MG PO (21:10)
[2024-07-27] MEDS: Aspirin 81 MG TAB.CHEW PO (21:10)
[2024-07-27] MEDS: clonazePAM 1 MG Tablet PO (21:10)
[2024-07-27] MEDS: Atorvastatin Calcium 80 MG Tablet PO (21:10)
[2024-07-27] MEDS: Acetaminophen 325 MG Tablet 650 MG PO (21:10)
[2024-07-28] VITALS (10 sets, daily range): BP systolic 96–137; BP diastolic 70–92; PULSE 63–86; RESP 14–18; TEMP 36.4–36.9; O2SAT 93–96
[2024-07-28 06:16] LABS: Absolute Lymphocyte Count 2.55 X10^3/uL (0.83-4.51); Absolute Neutrophil Count 1.9 X10^3/uL (2.0-7.7); Basophil# 0.05 X10^3/uL; Eosinophil# 0.23 X10^3/uL; Eosinophils% 4.5 % (0-5); Hematocrit 37.6 % (37-47); Hemoglobin 12.7 g/dL (12.0-15.0); Lymphocyte # 2.55 X10^3/ul (0.83-4.51); Lymphocyte % 50.1 % (19-41); Mean Corp Hgb Conc 33.8 g/dL (32-36); Mean Corpuscular Hgb 31.7 pg (27.0-32.0); Mean Corpuscular Volume 93.8 fL (81-99); Mean Platelet Vol. 11.4 fl (6.2-12.0); Monocyte# 0.35 X10^3/uL; Monocyte% 6.9 % (0-10); NRBC Flagged by Analyzer 0 % (0-5); Neutrophil # 1.89 X10^3/uL (2.7-7.7); Neutrophil % 37.1 % (47-70); Platelet Count 213 K/mm3 (150-450); RBC Distribution Width CV 12.1 % (11.6-14.6); Red Blood Count 4.01 M/mm3 (4.2-5.4); White Blood Count 5.1 K/mm3 (4.4-11.0)
[2024-07-28] MEDS: Acetaminophen 325 MG Tablet 650 MG PO ×2 (08:48→20:01)
[2024-07-28] MEDS: clonazePAM 1 MG Tablet PO ×2 (08:48→22:11)
[2024-07-28] MEDS: Metoprolol(XL)Succ 50 MG Tablet PO (08:48)
[2024-07-28] MEDS: Enoxaparin 40 MG/0.4 ML Syringe SC (08:48)
[2024-07-28] MEDS: lamoTRIgine 100 MG Tablet 400 MG PO (08:48)
[2024-07-28] MEDS: Aspirin 81 MG TAB.CHEW PO (08:48)
[2024-07-28 09:27] LABS: Hemoglobin A1c 4.7 % (3.8-5.6)
[2024-07-28 10:12] LABS: ALB/GLOB Ratio 1.2 RATIO (0.9-2.4); AST(SGOT) 9 U/L (15-37); Alanine Aminotransfer ALT/SGPT 12 U/L (13-56); Albumin, Serum 3.3 g/dL (3.2-5.0); Alkaline Phosphatase 68 U/L (45-117); Anion Gap 4 (5-15); BUN 9 mg/dL (7-18); BUN/Creat Ratio 11.7 RATIO (10-20); Bilirubin, Direct 0.17 mg/dL (0.00-0.30); Calcium,Total 8.9 mg/dL (8.5-10.1); Chloride 112 mmol/L (98-107); Cholesterol 211 mg/dL (200); Creatinine, Serum 0.77 mg/dL (0.55-1.02); EST Glomerular Filtration Rate 82 mL/min (>60); Est Glom Filt Rate - Afr Amer 99 mL/min (>60); Estimated Creatinine Clearance 86.24 ml/min; Globulin 2.7 g/dL (2.2-4.2); Glucose 93 mg/dL (74-106); High Density Lipoprotein 42 mg/dL; Magnesium 1.7 mg/dL (1.6-2.6); Phosphorus 3.9 mg/dL (2.5-4.9); Potassium 3.8 mmol/L (3.5-5.1); Sodium Level 142 mmol/L (136-145); Triglycerides 140 mg/dL; Very Low Density Lipoprotein 28 mg/dL (5-40)
--- NOTE | 2024-07-28 10:28 | NEURO.CONS ---
Assessment and Plan: Neuro Assessment/Plan RYANNE RENTERIA, is a 59 F with mood disorder, htn, hld, chronic back pain s/p stimulator, hx of cardiac valve issues and heart rhythm issues who presents with 2 hrs of sudden onset binocular double vision worse with looking to the left and dizziness. CT neg. 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 No other neurological sxs. She is back to normal now. A1c 4.7, LDL 141. Cannot get MRI appears like due to stimulator. This appears to be consistent with a TIA. Diagnosis: - TIA Plan: - ASA 81 mg - High intensity statin, lipitor 40qhs - TTE, call us back if abnormal - 30d event monitor - CV risk factor optimization - Repeat CTH in 24 hours or MRI if possible. - If CT or MRI is unremarkable no further recs - Follow up with PCP and neuro clinic after dc. I personally attended this patient and spent a total time of 45 minutes evaluating this patient including clinical assessment, review of chart, medical history imaging, and determining appropriate treatment and workup. HPI Consult Data Date of Consult: 07/28/24 HPI Narrative HPI Narrative: RYANNE RENTERIA is a 59 F with mood disorder, htn, hld, chronic back pain s/p stimulator, hx of cardiac valve issues and heart rhythm issues who presents with 2 hrs of sudden onset binocular double vision worse with looking to the left and dizziness. CT neg. 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 No other neurological sxs. She is back to normal now. A1c 4.7, LDL 141. Cannot get MRI appears like due to stimulator. This appears to be consistent with a TIA. [facility] Medical History Alcohol use Ambulates with cane Anxiety Asthma Back pain Borderline personality disorder Cardiology follow-up encounter CPAP (continuous positive airway pressure) dependence Depression Easy bruising Fatty liver Former smoker Gastric reflux H/O transesophageal echocardiography (ELAINE) for monitoring Hematuria History of echocardiogram History of edema History of emotional problems History of IBS History of irregular heartbeat History of stress test Major depressive disorder Non-rheumatic mitral regurgitation Nonrheumatic mitral (valve) prolapse Normal Holter exam ARLEN (obstructive sleep apnea) Osteoarthritis 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 Post-menopausal Premature atrial contraction Premature ventricular contraction Pulmonary hypertension Restless legs Seasonal allergies Shortness of breath on exertion SVT (supraventricular tachycardia) Tachycardia Wears dentures Wears glasses Home Medications ?Medication ?Instructions ?Recorded ?Last Taken ?Type magnesium oxide 400 mg PO DAILY 01/27/21 07/27/24 History levocetirizine 5 mg tablet (Xyzal) 5 mg PO DAILY 09/13/22 07/27/24 History furosemide 20 mg tablet 20 mg PO DAILY 03/04/23 07/27/24 History losartan 25 mg tablet 25 mg PO DAILY 04/29/23 07/27/24 History pantoprazole 40 mg tablet,delayed 40 mg PO DAILY #90 tabs 07/12/23 07/27/24 Rx release clonazepam 1 mg tablet 1 mg PO BID anxiety 04/24/24 07/27/24 History lamotrigine 200 mg tablet 400 mg PO DAILY 04/24/24 07/27/24 History (Lamictal) albuterol sulfate 90 mcg/actuation 2 inh inhalation Q4H PRN shortness 07/27/24 Unknown History aerosol inhaler of breath or wheezing atorvastatin 10 mg tablet 10 mg PO DAILY 07/27/24 07/27/24 History clonazepam 1 mg tablet 0.5 mg PO 1200 PRN anxiety 07/27/24 07/27/24 History metoprolol succinate 50 mg 50 mg PO DAILY 07/27/24 07/27/24 History tablet,extended release 24 hr metoprolol tartrate 50 mg tablet 50 mg PO DAILY PRN HIGH BLOOD 07/27/24 Unknown History PRESSURE quetiapine 400 mg tablet 400 mg PO QHS 07/27/24 07/26/24 History Allergy/AdvReac Type Severity Reaction Status Date / Time bethanechol (From Urecholine) Allergy Mild saliva Verified 07/27/24 16:07 adhesive tape Allergy rash Verified 07/27/24 16:07 Sulfa (Sulfonamide AdvReac Rash Verified 07/27/24 16:07 Antibiotics) Family History Mother Anxiety Arthritis Depression Mental disorder Osteoporosis Atrial fibrillation Sister Breast cancer Diabetes Brother Diabetes Father CAD (coronary artery disease) History of coronary artery bypass surgery Atrial fibrillation Gallbladder cancer Diabetes Heart disease Alcoholism Aunt Colon cancer Other Hypertension Melanoma Surgical History History of bladder surgery (~1971) History of cardiac catheterization History of rotator cuff surgery History of surgery History of tonsillectomy (~2008) Hx of arthroscopy of right knee (~2017) Social History household members: spouse current occupational status: unemployed 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 Smoking Status: Former smoker quit date: 11/07/09 pack-years: 20 Electronic Cigarette Use: not used alcohol intake: current alcohol intake frequency: a few times a month Alcohol type: beer substance use type: does not use caffeine: Yes Type: coffee Number of servings: 1 what type of physical activity do you participate in: swimming frequency: 3-4 times per week do you feel safe at home: Yes Vital Signs Vital Signs Vital Signs: 07/27/24 16:08 07/27/24 17:07 07/27/24 17:58 Temperature 97 F L Temperature Source Temporal Pulse Rate 76 96 73 Pulse Rate [Lying] Pulse Rate [Sitting (for 1 minute prior to obtaining)] Pulse Rate [Standing (for 1 minute prior to obtaining)] Pulse Strength Respiratory Rate 18 17 19 H Respiratory Effort Respiratory Depth Respiratory Pattern Blood Pressure 140/88 H 143/78 H 136/76 H Blood Pressure [Lying] Blood Pressure [Sitting (for 1 minute prior to obtaining)] Blood Pressure [Standing (for 1 minute prior to obtaining)] Blood Pressure Mean 105 99 96 Blood Pressure Mean [Lying] Blood Pressure Mean [Sitting (for 1 minute prior to obtaining)] Blood Pressure Mean [Standing (for 1 minute prior to obtaining)] Blood Pressure Source Blood Pressure Position Blood Pressure Location Pulse Ox 96 97 97 Oxygen Delivery Method Room Air Room Air 07/27/24 18:51 07/27/24 19:00 07/27/24 20:22 Temperature 98 F 98.4 F Temperature Source Oral Pulse Rate 78 72 62 Pulse Rate [Lying] Pulse Rate [Sitting (for 1 minute prior to obtaining)] Pulse Rate [Standing (for 1 minute prior to obtaining)] Pulse Strength Respiratory Rate 19 H 18 Respiratory Effort Respiratory Depth Respiratory Pattern Blood Pressure 140/75 H 135/86 H 142/79 H Blood Pressure [Lying] Blood Pressure [Sitting (for 1 minute prior to obtaining)] Blood Pressure [Standing (for 1 minute prior to obtaining)] Blood Pressure Mean 96 102 100 Blood Pressure Mean [Lying] Blood Pressure Mean [Sitting (for 1 minute prior to obtaining)] Blood Pressure Mean [Standing (for 1 minute prior to obtaining)] Blood Pressure Source Monitor Blood Pressure Position Semi-Fowlers Blood Pressure Location Right Arm Pulse Ox 97 95 94 Oxygen Delivery Method Room Air Room Air 07/27/24 22:00 07/27/24 23:19 07/28/24 02:00 Temperature 98.0 F Temperature Source Temporal Pulse Rate 63 Pulse Rate [Lying] Pulse Rate [Sitting (for 1 minute prior to obtaining)] Pulse Rate [Standing (for 1 minute prior to obtaining)] Pulse Strength Respiratory Rate 18 Respiratory Effort Normal Non-Labored Respiratory Depth Normal Respiratory Pattern Normal Blood Pressure 127/78 H Blood Pressure [Lying] Blood Pressure [Sitting (for 1 minute prior to obtaining)] Blood Pressure [Standing (for 1 minute prior to obtaining)] Blood Pressure Mean 94 Blood Pressure Mean [Lying] Blood Pressure Mean [Sitting (for 1 minute prior to obtaining)] Blood Pressure Mean [Standing (for 1 minute prior to obtaining)] Blood Pressure Source Monitor Blood Pressure Position Semi-Fowlers Blood Pressure Location Left Arm Pulse Ox 90 93 Oxygen Delivery Method Room Air Room Air Room Air 07/28/24 02:00 07/28/24 06:00 07/28/24 08:12 Temperature 97.5 F L Temperature Source Temporal Pulse Rate 86 Pulse Rate [Lying] Pulse Rate [Sitting (for 1 minute prior to obtaining)] Pulse Rate [Standing (for 1 minute prior to obtaining)] Pulse Strength Respiratory Rate 18 Respiratory Effort Normal Non-Labored Respiratory Depth Normal Respiratory Pattern Normal Blood Pressure 96/70 Blood Pressure [Lying] Blood Pressure [Sitting (for 1 minute prior to obtaining)] Blood Pressure [Standing (for 1 minute prior to obtaining)] Blood Pressure Mean 78 Blood Pressure Mean [Lying] Blood Pressure Mean [Sitting (for 1 minute prior to obtaining)] Blood Pressure Mean [Standing (for 1 minute prior to obtaining)] Blood Pressure Source Monitor Blood Pressure Position Semi-Fowlers Blood Pressure Location Left Arm Pulse Ox 95 95 Oxygen Delivery Method Room Air Room Air Room Air 07/28/24 08:45 07/28/24 08:48 07/28/24 08:54 Temperature 97.7 F L Temperature Source Oral Pulse Rate 68 65 Pulse Rate [Lying] Pulse Rate [Sitting (for 1 minute prior to obtaining)] Pulse Rate [Standing (for 1 minute prior to obtaining)] Pulse Strength Normal (2+) Respiratory Rate 18 Respiratory Effort Respiratory Depth Respiratory Pattern Blood Pressure 108/85 H Blood Pressure [Lying] Blood Pressure [Sitting (for 1 minute prior to obtaining)] Blood Pressure [Standing (for 1 minute prior to obtaining)] Blood Pressure Mean 92 Blood Pressure Mean [Lying] Blood Pressure Mean [Sitting (for 1 minute prior to obtaining)] Blood Pressure Mean [Standing (for 1 minute prior to obtaining)] Blood Pressure Source Monitor Blood Pressure Position Semi-Fowlers Blood Pressure Location Right Arm Pulse Ox 94 Oxygen Delivery Method Room Air 07/28/24 09:00 07/28/24 09:00 Temperature Temperature Source Pulse Rate Pulse Rate [Lying] 67 Pulse Rate [Sitting (for 1 minute prior to obtaining)] 69 Pulse Rate [Standing (for 1 minute prior to obtaining)] 72 Pulse Strength Respiratory Rate Respiratory Effort Normal Non-Labored Respiratory Depth Normal Respiratory Pattern Normal Blood Pressure Blood Pressure [Lying] 113/71 Blood Pressure [Sitting (for 1 minute prior to obtaining)] 110/90 H Blood Pressure [Standing (for 1 minute prior to obtaining)] 114/92 H Blood Pressure Mean Blood Pressure Mean [Lying] 85 Blood Pressure Mean [Sitting (for 1 minute prior to obtaining)] 96 Blood Pressure Mean [Standing (for 1 minute prior to obtaining)] 99 Blood Pressure Source Blood Pressure Position Blood Pressure Location Pulse Ox Oxygen Delivery Method Room Air Weight Weight: 88.1 kg Body Mass Index (BMI) 32.3 NIHSS NIHSS Nursing Documentation NIHSS Nursing Documentation: NIH Stroke Scale Start: 07/27/24 16:09 Freq: Status: Discharge Protocol: Activity Type Activity Date Activity User E-sign Co-sign Detail Recorded Client Recorded Date Recorded By Document 07/27/24 16:27 [id number] 07/27/24 16:29 07/27/24 16:27 NIH Stroke Scale [NIHSS] A score of 0 is normal or asymptomatic . Total possible score is 42. Inpatient: RN or Physician to activate a stroke alert for onset of new stroke symptoms or with NIHSS increase >/= 3 points. Following change in neurological status, NIHSS will be performed per physician order or more frequently PRN. -1a. Level of Consciousness Alert; keenly responsive -1b. LOC Questions Answers BOTH questions correctly. -1c. LOC Commands Performs both tasks correctly . -2. Best Gaze Normal -3. Visual No visual loss -4. Facial Palsy Normal symmetrical movements -5a. Left Arm No drift; arm holds 90 (or 45 ) degrees for full 10 seconds -5b. Right Arm No drift; arm holds 90 (or 45 ) degrees for full 10 seconds -6a. Left Leg No drift; leg holds 30-degree position for full 5 seconds -6b. Right Leg No drift; leg holds 30-degree position for full 5 seconds -7. Limb Ataxia Absent -8. Sensory Normal; no sensory loss -9. Best Language No aphasia; normal -10. Dysarthria Normal -11. Extinction and Inattention No abnormality -Total 0 Query Text:A score of 0 is normal or asymptomatic. Total possible score is 42 . ED: Notify Physician for NIHSS increase by > / = 3 points. Inpatient: RN or Physician to activate a stroke alert for NIHSS increase of > / = 3 points. NIHSS: Ischemic Stroke/TIA Start: 07/27/24 20:12 Text: For PCU Patients: NIH and Neuro Check every 4 Status: Active hours, PRN and with change in RN caregiver. Freq: [id number] Protocol: Activity Type Activity Date Activity User E-sign Co-sign Detail Recorded Client Recorded Date Recorded By Document 07/28/24 08:45 [facility] desktop 07/28/24 08:57 [facility] 07/28/24 08:45 -1a. Level of Consciousness Alert; keenly responsive -1b. LOC Questions Answers BOTH questions correctly. -1c. LOC Commands Performs both tasks correctly . -2. Best Gaze Normal -3. Visual No visual loss -4. Facial Palsy Normal symmetrical movements -5a. Left Arm No drift; arm holds 90 (or 45 ) degrees for full 10 seconds -5b. Right Arm No drift; arm holds 90 (or 45 ) degrees for full 10 seconds -6a. Left Leg No drift; leg holds 30-degree position for full 5 seconds -6b. Right Leg No drift; leg holds 30-degree position for full 5 seconds -7. Limb Ataxia Absent -8. Sensory Normal; no sensory loss -9. Best Language No aphasia; normal -10. Dysarthria Normal -11. Extinction and Inattention No abnormality -Total 0 Query Text:A score of 0 is normal or asymptomatic. Total possible score is 42 . ED: Notify Physician for NIHSS increase by > / = 3 points. Inpatient: RN or Physician to activate a stroke alert for NIHSS increase of > / = 3 points. Coma Scale [Assess] -Eye Opening Spontaneous -Motor Obeys Commands -Verbal Oriented [Total] -Coma Scale Total 15 Physical Exam Narrative Physical Exam: - General: NAD, pleasant, cooperative, well nourished, well developed - Head/Eyes: Atraumatic, normocephalic, clear cornea, normal sclera/conjunctive - Neuro: ? Mental Status: AAOX4 & following simple commands. ? Speech: Clear and fluent with good repetition, comprehension, & naming. No aphasia or dysarthria ? CN II: Visual atwood are full to confrontation. PERRL. ? CN III, IV, : EOMI, no gaze preference, no nystagmus, no ptosis ? CN V: Facial sensation is intact to light touch throughout. ? CN VII: Face is symmetric with normal eye closure and smile. ? CN VII: Hearing is grossly normal to conversational speech. ? CN IX, X: Palate elevates symmetrically and no uvula deviation ? CN XI: Head turning, and shoulder shrug are intact. ? CN XII: Tongue is midline with normal movements and no atrophy. ? Motor: Able to sustain all limbs ? Sensation: Normal to light touch bilaterally. ? Coordination: Normal FTN & HTS. No abn movements seen. Lab / Micro Data 07/28/24 05:50 07/28/24 05:50 Labs: Laboratory Results - last 24 hr 07/27/24 16:24: POC Glucose 92 07/27/24 16:40: WBC 7.5, RBC 4.35, Hgb 13.9, Hct 39.9, MCV 91.7, MCH 32.0, MCHC 34.8, RDW Std Deviation 40.3, RDW Coeff of Bravo 12.1, Plt Count 236, MPV 12.2 H, Immature Gran % (Auto) 0.300, Neut % (Auto) 56.7, Lymph % (Auto) 32.9, Leake % (Auto) 6.1, Eos % (Auto) 3.2, Baso % (Auto) 0.8, Absolute Neuts (auto) 4.3, Absolute Lymphs (auto) 2.48, Nucleated RBC % 0, Sodium 140, Potassium 3.8, Chloride 108 H, Carbon Dioxide 25.0, Anion Gap 7, BUN 11, Creatinine 0.89, Estim Creat Clear Calc 74.95, Est GFR (MDRD) Af Amer 84, Est GFR (MDRD) Non-Af 69, BUN/Creatinine Ratio 12.4, Glucose 99, Calcium 9.4, Total Bilirubin 0.70, AST 15, ALT 15, Alkaline Phosphatase 78, Total Protein 7.2, Albumin 4.0, Globulin 3.2, Albumin/Globulin Ratio 1.2, Lipase 15 07/27/24 17:29: Urine Color Straw, Urine Clarity Clear, Urine pH 7.0, Ur Specific [place] 1.005, Urine Protein Negative, Urine Glucose (UA) Normal, Urine Ketones Negative, Urine Occult Blood Negative, Urine Nitrite Negative, Urine Bilirubin Negative, Urine Urobilinogen Normal, Ur Leukocyte Esterase 25 H, Urine RBC 0 SEEN, Urine WBC 0-5 SEEN, Ur Squamous Epith Cells 0 SEEN, Urine Bacteria RARE, Urine Mucus 0 SEEN 07/28/24 05:50: WBC 5.1, RBC 4.01 L, Hgb 12.7, Hct 37.6, MCV 93.8, MCH 31.7, MCHC 33.8, RDW Std Deviation 42.0, RDW Coeff of Bravo 12.1, Plt Count 213, MPV 11.4, Immature Gran % (Auto) 0.400, Neut % (Auto) 37.1 L, Lymph % (Auto) 50.1 H, Leake % (Auto) 6.9, Eos % (Auto) 4.5, Baso % (Auto) 1.0, Absolute Neuts (auto) 1.9 L, Absolute Lymphs (auto) 2.55, Nucleated RBC % 0, Sodium 142, Potassium 3.8, Chloride 112 H, Carbon Dioxide 26.0, Anion Gap 4 L, BUN 9, Creatinine 0.77, Estim Creat Clear Calc 86.24, Est GFR (MDRD) Af Amer 99, Est GFR (MDRD) Non-Af 82, BUN/Creatinine Ratio 11.7, Glucose 93, Hemoglobin A1c 4.7, Calcium 8.9, Phosphorus 3.9, Magnesium 1.7, Total Bilirubin 0.70, Direct Bilirubin 0.17, AST 9 L, ALT 12 L, Alkaline Phosphatase 68, Total Protein 6.0 L, Albumin 3.3, Globulin 2.7, Albumin/Globulin Ratio 1.2, Triglycerides 140, Cholesterol 211 H, LDL Cholesterol 141 H, VLDL Cholesterol 28, HDL Cholesterol 42, TSH 3.660 Micro: Microbiology 07/27/24 16:47 Mucosa - Nasopharyngeal SARS-CoV-2, Influenza & RSV (PCR) - Final Imaging Radiology Impression Head/Neck CTA 07/27/24 16:48 IMPRESSION: 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 No other significant atherosclerotic disease of the head or neck N.B. : The above Results were Read Back by Jensen Singh MD to Leland Paredes NP, and understanding confirmed on 07/27/2024 17:44:02 (ET). 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 No other significant atherosclerotic disease of the head or neck N.B. : The above Results were Read Back by Jensen Singh MD to Leland Paredes NP, and understanding confirmed on 07/27/2024 17:44:02 (ET). Electronically Signed: Jensen Singh MD at 17:47 EDT , Chest X-Ray 07/27/24 17:30 IMPRESSION: No acute cardiopulmonary pathology Electronically Signed: Jensen Singh MD at 17:52 EDT , Active Medications Active Medications Active Medications: Current Medications Generic Name Dose Route Start Last Admin Trade Name Freq PRN Reason Stop Dose Admin Acetaminophen 650 mg 07/27/24 20:12 07/28/24 08:48 Acetaminophen 325 Mg Tablet PO 650 mg Q6H PRN PRN Administration Pain 1-10 Or Fever >100.7 Albuterol Sulfate 2.5 mg 07/27/24 20:12 Albuterol 2.5 Mg/3 Ml Vial.Neb. INHALATION Q2H PRN PRN SOB &/OR WHEEZING Aspirin 81 mg 07/28/24 08:00 07/28/24 08:48 Aspirin 81 Mg Tab.Chew PO 81 mg BREAKFAST JUNITO Administration Atorvastatin Calcium 80 mg 07/27/24 22:00 07/27/24 21:10 Atorvastatin Calcium 80 Mg Tablet PO 80 mg QHS JUNITO Administration Clonazepam 0.5 mg 07/28/24 12:00 Clonazepam 0.5 Mg Tablet PO 1200 PRN anxiety Clonazepam 1 mg 07/27/24 20:12 07/28/24 08:48 Clonazepam 1 Mg Tablet PO 1 mg BID JUNITO Administration Enoxaparin Sodium 40 mg 07/28/24 10:00 07/28/24 08:48 Enoxaparin 40 Mg/0.4 Ml Syringe SC 40 mg DAILY JUNITO Administration Hydralazine HCl 5 mg 07/27/24 20:12 Hydralazine 20 Mg/Ml Vial IV 07/28/24 20:12 Q30M PRN maintain BP parameters with HR <60 Sodium Chloride 250 mls @ 15 mls/hr 07/27/24 20:39 IV .[id number] PRN Additional IVPB Infusion Sodium Chloride 250 mls @ 15 mls/hr 07/27/24 20:39 IV .[id number] PRN Saline Flush Labetalol HCl 10 - 20 mg 07/27/24 20:12 Labetalol (Prefilled) 20 Mg/4 Ml IV 07/28/24 20:12 Q10M PRN PRN maintain BP parameters with HR >/=60 Lamotrigine 400 mg 07/28/24 10:00 07/28/24 08:48 Lamotrigine 100 Mg Tablet PO 400 mg DAILY JUNITO Administration Melatonin 3 mg 07/27/24 20:12 Melatonin 3 Mg Tablet PO QHS PRN PRN INSOMNIA Metoprolol Succinate 50 mg 07/28/24 10:00 07/28/24 08:48 Metoprolol(Xl)Succ 50 Mg Tablet PO 50 mg DAILY JUNITO Administration Protocol Ondansetron HCl 4 mg 07/27/24 20:12 Ondansetron 4 Mg/2 Ml Vial IV Q8H PRN PRN NAUSEA/VOMITING Quetiapine Fumarate 400 mg 07/27/24 22:00 07/27/24 21:10 Quetiapine 100 Mg Tablet PO 400 mg QHS JUNITO Administration Senna/Docusate Sodium 2 tablet 07/27/24 20:12 Senna/Docusate Sodium 1 Tablet PO BID PRN PRN Constipation Sodium Chloride 10 - 40 ml 07/27/24 20:39 0.9% Saline Lock 10 Ml Syringe IV UD PRN SALINE FLUSH
--- NOTE | 2024-07-28 13:08 | CASEMGMT ---
Social Work PHQ-9 completed w/pt. Pt scored a 3, pt explained to SW that she has depression at her baseline, has been hospitalized in the past. Pt states in therapy once per month and has a psychiatrist as well for medication management. Pt spoke about recently losing her cat, support offered. However she and her did get a kitten. Pt declined any additional MH resources, states is happy with her current providers. No further resources indicated at this time. TIMBO Buck
--- NOTE | 2024-07-28 13:28 | CASEMGMT ---
Met with pt to complete JAFFE form. JAFFE form explained to pt at this time who voiced understanding and signed form. Original form placed in pt?s chart and copy provided to the pt. Pt states that she lives with her spouse and that she is independent. Pt states that she sees PM for her back and that she has a rollator. Pt denies the need for PT here in the hospital (per PT Note). Pt denies further needs at this time. Richard Pablo RN CM
--- NOTE | 2024-07-28 13:45 | PN_ITS ---
Subjective Subjective Patient seen and examined. She had no complaints. She was admitted with a complaint of blurred vision in her left eye with assisted double vision. This is now resolved. CT brain was negative for any acute intracranial pathology. Patient seen and examined prior to discharge. She had no complaints and had an uneventful night. She thinks her double vision has resolved. Review of systems otherwise negative. She does have a spinal stimulator in place and states she was told that it is MRI compatible but she is going to call the company to check. Objective Data Objective Data Vital Signs: Vital Signs Temp Pulse Resp BP Pulse Ox O2 Del Method 98.4 F 66 18 124/82 H 95 Room Air 07/28/24 12:45 07/28/24 12:45 07/28/24 12:45 07/28/24 12:45 07/28/24 12:45 07/28/24 12:45 Oxygen Delivery Method Room Air Weight: 194 lb 3.636 oz Body Mass Index (BMI) 32.3 Intake & Output: Intake and Output for Last 24 Hours 07/26/24 07/27/24 07/28/24 23:59 23:59 23:59 Intake Total 1000 / 1250 790 / 790 Balance 1000 / 1250 790 / 790 Lab / Micro Data 07/28/24 05:50 07/28/24 05:50 Labs: Laboratory Results - last 24 hr 07/27/24 16:24: POC Glucose 92 07/27/24 16:40: WBC 7.5, RBC 4.35, Hgb 13.9, Hct 39.9, MCV 91.7, MCH 32.0, MCHC 34.8, RDW Std Deviation 40.3, RDW Coeff of Bravo 12.1, Plt Count 236, MPV 12.2 H, Immature Gran % (Auto) 0.300, Neut % (Auto) 56.7, Lymph % (Auto) 32.9, [place] % (Auto) 6.1, Eos % (Auto) 3.2, Baso % (Auto) 0.8, Absolute Neuts (auto) 4.3, Absolute Lymphs (auto) 2.48, Nucleated RBC % 0, Sodium 140, Potassium 3.8, C hloride 108 H, Carbon Dioxide 25.0, Anion Gap 7, BUN 11, Creatinine 0.89, Estim Creat Clear Calc 74.95, Est GFR (MDRD) Af Amer 84, Est GFR (MDRD) Non-Af 69, BUN/Creatinine Ratio 12.4, Glucose 99, Calcium 9.4, Total Bilirubin 0.70, AST 15, ALT 15, Alkaline Phosphatase 78, Total Protein 7.2, Albumin 4.0, Globulin 3.2, Albumin/Globulin Ratio 1.2, Lipase 15 07/27/24 17:29: Urine Color Straw, Urine Clarity Clear, Urine pH 7.0, Ur Specific [place] 1.005, Urine Protein Negative, Urine Glucose (UA) Normal, Urine Ketones Negative, Urine Occult Blood Negative, Urine Nitrite Negative, Urine Bilirubin Negative, Urine Urobilinogen Normal, Ur Leukocyte Esterase 25 H, Urine RBC 0 SEEN, Urine WBC 0-5 SEEN, Ur Squamous Epith Cells 0 SEEN, Urine Bacteria RARE, Urine Mucus 0 SEEN 07/28/24 05:50: WBC 5.1, RBC 4.01 L, Hgb 12.7, Hct 37.6, MCV 93.8, MCH 31.7, MCHC 33.8, RDW Std Deviation 42.0, RDW Coeff of Bravo 12.1, Plt Count 213, MPV 11.4, Immature Gran % (Auto) 0.400, Neut % (Auto) 37.1 L, Lymph % (Auto) 50.1 H, [place] % (Auto) 6.9, Eos % (Auto) 4.5, Baso % (Auto) 1.0, Absolute Neuts (auto) 1.9 L, Absolute Lymphs (auto) 2.55, Nucleated RBC % 0, Sodium 142, Potassium 3.8, Chloride 112 H, Carbon Dioxide 26.0, Anion Gap 4 L, BUN 9, Creatinine 0.77, Estim Creat Clear Calc 86.24, Est GFR (MDRD) Af Amer 99, Est GFR (MDRD) Non-Af 82, BUN/Creatinine Ratio 11.7, Glucose 93, Hemoglobin A1c 4.7, Calcium 8.9, Phosphorus 3.9, Magnesium 1.7, Total Bilirubin 0.70, Direct Bilirubin 0.17, AST 9 L, ALT 12 L, Alkaline Phosphatase 68, Total Protein 6.0 L, Albumin 3.3, Globulin 2.7, Albumin/Globulin Ratio 1.2, Triglycerides 140, Cholesterol 211 H, LDL Cholesterol 141 H, VLDL Cholesterol 28, HDL Cholesterol 42, TSH 3.660 Micro: Microbiology 07/27/24 16:47 Mucosa - Nasopharyngeal SARS-CoV-2, Influenza & RSV (PCR) - Final Radiography Diagnostic Testing: Radiology Impression Head/Neck CTA 07/27/24 16:48 IMPRESSION: 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 No other significant atherosclerotic disease of the head or neck N.B. : The above Results were Read Back by Jensen Singh MD to Leland Paredes NP, and understanding confirmed on 07/27/2024 17:44:02 (ET). 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 No other significant atherosclerotic disease of the head or neck N.B. : The above Results were Read Back by Jensen Singh MD to Leland Paredes NP, and understanding confirmed on 07/27/2024 17:44:02 (ET). Electronically Signed: Jensen Singh MD at 17:47 EDT , Chest X-Ray 07/27/24 17:30 IMPRESSION: No acute cardiopulmonary pathology Electronically Signed: Jensen Singh MD at 17:52 EDT , Echocardiogram 07/27/24 19:37 Interpretation Summary The estimated ejection fraction is 60 %. No evidence for diastolic dysfunction. Mild (1+) mitral valve insufficiency. Mildly dilated ascending aorta. Trivial aortic valve insufficiency. Ordering Physician: Angela Rosa Referring Physician: Agapito Saucedo Performed By: Jazmyne Mccormick, KARON, RVT Physical Exam Const alert, oriented x3, no apparent distress and well nourished General Appearance: cooperative and well developed HEENT normocephalic, head/scalp atraumatic, moist oral mucous membranes and oropharynx normal Eyes PERRL and EOMs intact bilaterally Neck no lymphadenopathy and supple Lymph Lymphatic: no lymphadenopathy noted Resp normal respiratory effort, normal air movement and clear to auscultation bilaterally Cardio regular rate, regular rhythm, S1 normal heart sound, S2 normal heart sound and no murmurs GI normal to inspection, nondistended, normoactive bowel sounds, soft to palpation, non-tender and non-distended Extremity normal capillary refill, no clubbing, cyanosis or edema and no calf tenderness General Extremity: no tenderness to palpation of joints or extremities Skin General Skin Exam: no breakdown Neuro CN's II-XII intact bilaterally, no focal motor deficits and no sensory deficits noted Motor Exam: strength 5/5 throughout and general weakness Psych thought process normal Appearance: appropriate Assessment & Plan Assessment/Plan (1) Double vision: (2) TIA (transient ischemic attack): PLAN: Plan #TIA * Admitted with a complaint of double vision in the left eye which is now resolved. 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 * Currently on aspirin, high intensity statin. * 2D echo ordered. She is to have MRI of the brain today. She does have a spinal stimulator and says she thinks she can get an MRI. Order for MRI placed and radiology team to confirm if she really can have MRI or otherwise. * Monitor NIH stroke scale. * PT OT on board. Fall precautions. * Continue holding BP meds to allow for permissive hypertension until stroke is conclusively ruled out. #Chronic back pain: * Follows with pain management. * Has a dorsal spinal stimulator in place. * P.o. Tylenol. * Uses marijuana as needed and has a medical marijuana card. #Lightheadedness and weakness * This is not alternate with position. She does have a history of SVT but has not been in SVT during this admission. On metoprolol. * Will monitor closely. * #Hypertension: Losartan and furosemide on hold to allow for permissive hypertension. #GERD: PPI #History of anxiety and mood disorder: On Seroquel, Lamictal and Klonopin DVT prophylaxis: lovenox Charges/Coding Visit Charges Inpatient E&M: 87490 Subs Hosp L2
--- NOTE | 2024-07-28 15:20 | EKG12_ITS ---
Test Reason : Blood Pressure : / mmHG Vent. Rate : 071 BPM Atrial Rate : 071 BPM P-R Int : 192 ms QRS Dur : 076 ms QT Int : 396 ms P-R-T Axes : 003 005 000 degrees QTc Int : 430 ms Normal sinus rhythm Normal ECG When compared with ECG of 27-JUL-2024 16:45, MANUAL COMPARISON REQUIRED, DATA IS UNCONFIRMED Confirmed by Jabari Del Castillo ([id number]), editor continuity and script CHYNA CHAVEZ ([id number]) on 07/30/2024 1:28:22 PM Referred By: Young Cortes Confirmed By:Jabari Del Castillo
[2024-07-28] MEDS: QUEtiapine 100 MG Tablet 400 MG PO (22:11)
[2024-07-28] MEDS: Atorvastatin Calcium 80 MG Tablet PO (22:11)
[2024-07-29] VITALS (7 sets, daily range): BP systolic 90–146; BP diastolic 45–83; PULSE 60–77; RESP 16–18; TEMP 35.9–37; O2SAT 90–96; BMI 32.3
[2024-07-29 04:38] LABS: Absolute Lymphocyte Count 2.73 X10^3/uL (0.83-4.51); Absolute Neutrophil Count 2.3 X10^3/uL (2.0-7.7); Basophil# 0.04 X10^3/uL; Basophil% 0.7 % (0-1); Eosinophil# 0.24 X10^3/uL; Eosinophils% 4.2 % (0-5); Hematocrit 37.1 % (37-47); Hemoglobin 12.6 g/dL (12.0-15.0); Lymphocyte # 2.73 X10^3/ul (0.83-4.51); Lymphocyte % 47.7 % (19-41); Mean Corpuscular Hgb 31.7 pg (27.0-32.0); Mean Corpuscular Volume 93.2 fL (81-99); Mean Platelet Vol. 11.7 fl (6.2-12.0); Monocyte# 0.38 X10^3/uL; Monocyte% 6.6 % (0-10); NRBC Flagged by Analyzer 0 % (0-5); Neutrophil # 2.32 X10^3/uL (2.7-7.7); Neutrophil % 40.6 % (47-70); Platelet Count 210 K/mm3 (150-450); RBC Distribution Width SD 41.3 fl (35.1-43.9); Red Blood Count 3.98 M/mm3 (4.2-5.4); White Blood Count 5.7 K/mm3 (4.4-11.0)
[2024-07-29 04:57] LABS: Anion Gap 6 (5-15); BUN 9 mg/dL (7-18); BUN/Creat Ratio 13.2 RATIO (10-20); Calcium,Total 8.8 mg/dL (8.5-10.1); Chloride 109 mmol/L (98-107); Creatinine, Serum 0.68 mg/dL (0.55-1.02); EST Glomerular Filtration Rate 94 mL/min (>60); Est Glom Filt Rate - Afr Amer 113 mL/min (>60); Estimated Creatinine Clearance 97.65 ml/min; Glucose 85 mg/dL (74-106); Potassium 3.5 mmol/L (3.5-5.1); Sodium Level 141 mmol/L (136-145)
[2024-07-29] MEDS: clonazePAM 1 MG Tablet PO (09:16)
[2024-07-29] MEDS: lamoTRIgine 100 MG Tablet 400 MG PO (09:16)
[2024-07-29] MEDS: Metoprolol(XL)Succ 50 MG Tablet PO (09:17)
[2024-07-29] MEDS: Enoxaparin 40 MG/0.4 ML Syringe SC (09:17)
[2024-07-29] MEDS: Aspirin 81 MG TAB.CHEW PO (09:17)
--- NOTE | 2024-07-29 10:55 | NEURO.PNOTE ---
Assessment and Plan: Neuro Assessment/Plan RYANNE RENTERIA, is a 59 F with mood disorder, htn, hld, chronic back pain s/p stimulator, hx of cardiac valve issues and heart rhythm issues who presents with 2 hrs of sudden onset binocular double vision worse with looking to the left and dizziness. CT neg. 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 No other neurological sxs. She is back to normal now. A1c 4.7, LDL 141. MRI neg. TTE neg. This appears to be consistent with a TIA. Diagnosis: - TIA Plan: - ASA 81 mg - High intensity statin, lipitor 40qhs - 30d event monitor - CV risk factor optimization - No further recs at this time. Follow up with PCP and neuro after dc. Call us back if any questions or concerns. I personally attended this patient and spent a total time of 30minutes evaluating this patient including clinical assessment, review of chart, medical history imaging, and determining appropriate treatment and workup. Subject: Neurology Subjective RYANNE RENTERIA, is a 59 F with mood disorder, htn, hld, chronic back pain s/p stimulator, hx of cardiac valve issues and heart rhythm issues who presents with 2 hrs of sudden onset binocular double vision worse with looking to the left and dizziness. CT neg. 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 No other neurological sxs. She is back to normal now. A1c 4.7, LDL 141. MRI neg. TTE neg. This appears to be consistent with a TIA. NIHSS NIHSS Nursing Documentation NIHSS Nursing Documentation: NIH Stroke Scale Start: 07/27/24 16:09 Freq: Status: Discharge Protocol: Activity Type Activity Date Activity User E-sign Co-sign Detail Recorded Client Recorded Date Recorded By Document 07/27/24 16:27 [id number] 07/27/24 16:29 07/27/24 16:27 NIH Stroke Scale [NIHSS] A score of 0 is normal or asymptomatic . Total possible score is 42. Inpatient: RN or Physician to activate a stroke alert for onset of new stroke symptoms or with NIHSS increase >/= 3 points. Following change in neurological status, NIHSS will be performed per physician order or more frequently PRN. -1a. Level of Consciousness Alert; keenly responsive -1b. LOC Questions Answers BOTH questions correctly. -1c. LOC Commands Performs both tasks correctly . -2. Best Gaze Normal -3. Visual No visual loss -4. Facial Palsy Normal symmetrical movements -5a. Left Arm No drift; arm holds 90 (or 45 ) degrees for full 10 seconds -5b. Right Arm No drift; arm holds 90 (or 45 ) degrees for full 10 seconds -6a. Left Leg No drift; leg holds 30-degree position for full 5 seconds -6b. Right Leg No drift; leg holds 30-degree position for full 5 seconds -7. Limb Ataxia Absent -8. Sensory Normal; no sensory loss -9. Best Language No aphasia; normal -10. Dysarthria Normal -11. Extinction and Inattention No abnormality -Total 0 Query Text:A score of 0 is normal or asymptomatic. Total possible score is 42 . ED: Notify Physician for NIHSS increase by > / = 3 points. Inpatient: RN or Physician to activate a stroke alert for NIHSS increase of > / = 3 points. NIHSS: Ischemic Stroke/TIA Start: 07/27/24 20:12 Text: For PCU Patients: NIH and Neuro Check every 4 Status: Active hours, PRN and with change in RN caregiver. Freq: [id number] Protocol: Activity Type Activity Date Activity User E-sign Co-sign Detail Recorded Client Recorded Date Recorded By Document 07/29/24 09:16 AMG desktop 07/29/24 09:16 AMG 07/29/24 09:16 -1a. Level of Consciousness Alert; keenly responsive -1b. LOC Questions Answers BOTH questions correctly. -1c. LOC Commands Performs both tasks correctly . -2. Best Gaze Normal -3. Visual No visual loss -4. Facial Palsy Normal symmetrical movements -5a. Left Arm No drift; arm holds 90 (or 45 ) degrees for full 10 seconds -5b. Right Arm No drift; arm holds 90 (or 45 ) degrees for full 10 seconds -6a. Left Leg No drift; leg holds 30-degree position for full 5 seconds -6b. Right Leg No drift; leg holds 30-degree position for full 5 seconds -7. Limb Ataxia Absent -8. Sensory Normal; no sensory loss -9. Best Language No aphasia; normal -10. Dysarthria Normal -11. Extinction and Inattention No abnormality -Total 0 Query Text:A score of 0 is normal or asymptomatic. Total possible score is 42 . ED: Notify Physician for NIHSS increase by > / = 3 points. Inpatient: RN or Physician to activate a stroke alert for NIHSS increase of > / = 3 points. Coma Scale [Assess] -Eye Opening Spontaneous -Motor Obeys Commands -Verbal Oriented [Total] -Coma Scale Total 15 Objective Data Objective Data Vital Signs: Vital Signs Temp Pulse Resp BP Pulse Ox O2 Del Method 97.9 F 77 18 114/68 95 Room Air 07/29/24 09:16 07/29/24 09:17 07/29/24 09:16 07/29/24 09:16 07/29/24 09:16 07/29/24 09:16 Oxygen Delivery Method Room Air Weight: 88.1 kg Body Mass Index (BMI) 32.3 Intake & Output: Intake and Output for Last 24 Hours 07/27/24 07/28/24 07/29/24 23:59 23:59 23:59 Intake Total 1000 / 1250 1030 / 1380 600 / 600 Balance 1000 / 1250 1030 / 1380 600 / 600 Lab / Micro Data 07/29/24 03:30 07/29/24 03:30 Labs: Laboratory Results - last 24 hr 07/29/24 03:30: WBC 5.7, RBC 3.98 L, Hgb 12.6, Hct 37.1, MCV 93.2, MCH 31.7, MCHC 34.0, RDW Std Deviation 41.3, RDW Coeff of Bravo 12.0, Plt Count 210, MPV 11.7, Immature Gran % (Auto) 0.200, Neut % (Auto) 40.6 L, Lymph % (Auto) 47.7 H, [place] % (Auto) 6.6, Eos % (Auto) 4.2, Baso % (Auto) 0.7, Absolute Neuts (auto) 2.3, Absolute Lymphs (auto) 2.73, Nucleated RBC % 0, Sodium 141, Potassium 3.5, Chloride 109 H, Carbon Dioxide 26.0, Anion Gap 6, BUN 9, Creatinine 0.68, Estim Creat Clear Calc 97.65, Est GFR (MDRD) Af Amer 113, Est GFR (MDRD) Non-Af 94, BUN/Creatinine Ratio 13.2, Glucose 85, Calcium 8.8 Micro: Microbiology 07/27/24 16:47 Mucosa - Nasopharyngeal SARS-CoV-2, Influenza & RSV (PCR) - Final Radiography Diagnostic Testing: Radiology Impression Echocardiogram 07/27/24 19:37 Interpretation Summary The estimated ejection fraction is 60 %. No evidence for diastolic dysfunction. Mild (1+) mitral valve insufficiency. Mildly dilated ascending aorta. Trivial aortic valve insufficiency. Ordering Physician: Angela Rosa Referring Physician: Agapito Saucedo Performed By: Jazmyne Mccormick RDCS, RVT Physical Exam Narrative Physical Exam: - General: NAD, pleasant, cooperative, well nourished, well developed - Head/Eyes: Atraumatic, normocephalic, clear cornea, normal sclera/conjunctive - Neuro: ? Mental Status: AAOX4 & following simple commands. ? Speech: Clear and fluent with good repetition, comprehension, & naming. No aphasia or dysarthria ? CN II: Visual [place] are full to confrontation. PERRL. ? CN III, IV, : EOMI, no gaze preference, no nystagmus, no ptosis ? CN V: Facial sensation is intact to light touch throughout. ? CN VII: Face is symmetric with normal eye closure and smile. ? CN VII: Hearing is grossly normal to conversational speech. ? CN IX, X: Palate elevates symmetrically and no uvula deviation ? CN XI: Head turning, and shoulder shrug are intact. ? CN XII: Tongue is midline with normal movements and no atrophy. ? Motor: Able to sustain all limbs ? Sensation: Normal to light touch bilaterally. ? Coordination: Normal FTN & HTS. No abn movements seen.
--- NOTE | 2024-07-29 12:35 | MRI_ITS ---
EXAM: MR HEAD WITHOUT INTRAVENOUS CONTRAST CLINICAL INDICATION: TIA TECHNIQUE: Multiplanar and multisequence MR images of the brain were obtained without intravenous contrast. COMPARISON: CTA head and neck with contrast 07/27/2024. FINDINGS: BRAIN AND EXTRA-AXIAL SPACES: No diffusion restriction to suspect acute or subacute ischemic infarct. No remote cortical-based ischemic infarct. Small anterior T2 FLAIR hyperintensity foci in the white matter of both cerebral hemispheres are chronic white matter ischemic changes. No midline shift and no mass effects. No intra- or extra-axial hemorrhage. Posterior fossa structures are unremarkable. Ventricles are appropriate for age. No hydrocephalus. Basal cisterns are patent. SELLA: Unremarkable. Normal sella turcica, pituitary gland, infundibular stalk, optic chiasm and hypothalamus. AUDITORY SYSTEM: Unremarkable. The internal auditory canals are patent. BONES/JOINTS: Unremarkable. No discrete lytic or blastic abnormalities. SINUSES: Unremarkable as visualized. Clear. MASTOID AIR CELLS: Mild mucosal edema in the right mastoid air cells. Normal left mastoid air cells. ORBITS: Unremarkable as visualized. Both globes, extraocular muscles, optic nerves and retrobulbar fat appear unremarkable. VASCULATURE: Unremarkable as visualized. Normal flow voids in the major intracranial circulation. MRI/Brain without Contrast IMPRESSION: 1. No MRI evidence of acute or subacute ischemic infarct or remote ischemic infarct. 2. Few small chronic white matter signal changes in both cerebral hemispheres. 3. Mild mucosal edema of the right temporal mastoid air cells. Electronically Signed: Darryl Dos Santos MD at 11:03 EDT ,
--- NOTE | 2024-07-29 14:15 | DS.PCM_ITS ---
Providers Date of Admission: 07/27/24 Date of Discharge: 07/29/24 Primary Care Physician: Dr. Agapito Saucedo, DO Consultations 07/27/24 20:12 Consult: Tele-Neurology Routine Consulting Provider: [facility] Reason for Consult: Acute Ischemic Stroke/TIA r/o EMERGENT Consult: No MD Notified: Yes Date Notified: 07/27/24 Time Notified: 21:34 Method of Notification: Answering Service Nursing Unit Staff Notify [facility] of Tele-Neurology Consult: Yes Reason For Visit: CVA/TIA R/O Diagnosis Discharge Diagnosis (1) Double vision: Status: Acute Code(s): H53.2 - Diplopia (2) TIA (transient ischemic attack): Status: Acute Code(s): G45.9 - Transient cerebral ischemic attack, unspecified Plan #TIA * Admitted with a complaint of double vision in the left eye which is now resolved. 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 * Currently on aspirin, high intensity statin. * 2D echo ordered. She is to have MRI of the brain today. She does have a spinal stimulator and says she thinks she can get an MRI. Order for MRI placed and radiology team to confirm if she really can have MRI or otherwise. * Monitor NIH stroke scale. * PT OT on board. Fall precautions. * Continue holding BP meds to allow for permissive hypertension until stroke is conclusively ruled out. #Chronic back pain: * Follows with pain management. * Has a dorsal spinal stimulator in place. * P.o. Tylenol. * Uses marijuana as needed and has a medical marijuana card. #Lightheadedness and weakness * This is not alternate with position. She does have a history of SVT but has not been in SVT during this admission. On metoprolol. * Will monitor closely. * #Hypertension: Losartan and furosemide on hold to allow for permissive hypertension. #GERD: PPI #History of anxiety and mood disorder: On Seroquel, Lamictal and Klonopin DVT prophylaxis: lovenox Medications at Discharge Home Medications magnesium oxide 400 mg PO DAILY 01/27/21 levocetirizine 5 mg tablet (Xyzal) 5 mg PO DAILY 09/13/22 furosemide 20 mg tablet 20 mg PO DAILY 03/04/23 losartan 25 mg tablet 25 mg PO DAILY 04/29/23 pantoprazole 40 mg tablet,delayed release 40 mg PO DAILY #90 tabs 07/12/23 clonazepam 1 mg tablet 1 mg PO BID anxiety 04/24/24 lamotrigine 200 mg tablet (Lamictal) 400 mg PO DAILY 04/24/24 albuterol sulfate 90 mcg/actuation aerosol inhaler 2 inh inhalation Q4H PRN shortness of breath or wheezing 07/27/24 clonazepam 1 mg tablet 0.5 mg PO 1200 PRN anxiety 07/27/24 metoprolol succinate 50 mg tablet,extended release 24 hr 50 mg PO DAILY 07/27/24 metoprolol tartrate 50 mg tablet 50 mg PO DAILY PRN HIGH BLOOD PRESSURE 07/27/24 quetiapine 400 mg tablet 400 mg PO QHS 07/27/24 aspirin 81 mg chewable tablet 81 mg PO BREAKFAST #30 tabs 07/29/24 atorvastatin 40 mg tablet 40 mg PO QHS #30 tabs 07/29/24 Hospital Course Operations None Procedures None Summary of Care Provided Minutes Spent on Discharge: 45 Hospital Course: Patient is a 59-year-old female with a past medical history as outlined was admitted through the ED on 07/27/2024 with a complaint of double vision and lightheadedness. Her symptoms have been going on for about 2 to 3 hours prior to admission. The symptoms had however resolved by the time she came into the ED and she had no other complaints. She had never had symptoms like this happening before. Review of symptoms otherwise negative. CT of the head and neck showed P3 occlusion with collaterals. CT of the brain showed no acute intracranial pathology. Neurology was consulted. She was admitted and managed for TIA. Her symptoms did not recur during this admission. Patient had a spinal stimulator in place but it was confirmed by radiology that she could still have the MRI. She had the MRI on 07/29/2024 which showed no evidence of stroke. Neurology reviewed patient and recommended that she could be discharged on aspirin 81 mg daily and high intensity statin. She was therefore discharged on atorvastatin 40 mg daily and aspirin 81 mg daily. She was also discharged with an order for a 30-day event monitor. She is follow-up with her primary care doctor within 1 to 2 weeks. Patient seen and examined prior to discharge. She had no active complaints and felt well. She was eager to be discharged home. Review of systems otherwise negative. Labs and vitals reviewed. Home medication reviewed and reconciled. Physical Exam Const alert, oriented x3, no apparent distress and well nourished General Appearance: cooperative, comfortable and well developed Orientation / Consciousness: awake HEENT normocephalic, head/scalp atraumatic, hearing grossly normal bilaterally, moist oral mucous membranes and oropharynx normal Mouth: oral and palatal mucosa normal Eyes PERRL and EOMs intact bilaterally Neck no lymphadenopathy and supple Lymph Lymphatic: no lymphadenopathy noted Resp normal respiratory effort, normal air movement and clear to auscultation bilaterally Cardio regular rate, regular rhythm, S1 normal heart sound, S2 normal heart sound and no murmurs GI normal to inspection, nondistended, normoactive bowel sounds, soft to palpation, non-tender and non-distended Extremity normal to inspection, full ROM, normal capillary refill, no clubbing, cyanosis or edema and no calf tenderness General Extremity: no tenderness to palpation of joints or extremities Skin no rashes or lesions noted General Skin Exam: no breakdown Neuro oriented x3, CN's II-XII intact bilaterally, moves all extremities, no focal motor deficits and no sensory deficits noted Motor Exam: strength 5/5 throughout and general weakness Psych thought process normal Appearance: appropriate Weight / BMI Weight Weight: 194 lb 3.636 oz Body Mass Index (BMI) 32.3 ABG / Lab / Microbiology Data 07/29/24 03:30 07/29/24 03:30 Laboratory: Laboratory Results - last 24 hr 07/29/24 03:30: WBC 5.7, RBC 3.98 L, Hgb 12.6, Hct 37.1, MCV 93.2, MCH 31.7, MCHC 34.0, RDW Std Deviation 41.3, RDW Coeff of Bravo 12.0, Plt Count 210, MPV 11.7, Immature Gran % (Auto) 0.200, Neut % (Auto) 40.6 L, Lymph % (Auto) 47.7 H, [place] % (Auto) 6.6, Eos % (Auto) 4.2, Baso % (Auto) 0.7, Absolute Neuts (auto) 2.3, Absolute Lymphs (auto) 2.73, Nucleated RBC % 0, Sodium 141, Potassium 3.5, Chloride 109 H, Carbon Dioxide 26.0, Anion Gap 6, BUN 9, Creatinine 0.68, Estim Creat Clear Calc 97.65, Est GFR (MDRD) Af Amer 113, Est GFR (MDRD) Non-Af 94, BUN/Creatinine Ratio 13.2, Glucose 85, Calcium 8.8 Microbiology: Microbiology 07/27/24 16:47 Mucosa - Nasopharyngeal SARS-CoV-2, Influenza & RSV (PCR) - Final Radiography Diagnostic Testing: Radiology Impression Brain MRI 07/29/24 12:35 IMPRESSION: 1. No MRI evidence of acute or subacute ischemic infarct or remote ischemic infarct. 2. Few small chronic white matter signal changes in both cerebral hemispheres. 3. Mild mucosal edema of the right temporal mastoid air cells. Electronically Signed: Darryl Dos Santos MD at 11:03 EDT , D/C Instructions Discharge Diet: Low fat / Low cholesterol Discharge Activity: Return to Normal Activity Weight Bearing Status: Weight bearing as tolerated Call your doctor if you observe: Fever of 101 or Higher, Shortness of breath, Dizziness, Swelling in the ankles and Chest pain Meaningful Use Info Meaningful Use Meaningful Use Diagnoses (Choose all that apply): None applicable Ischemic Stroke Statin Dosing Therapy Reference: STATIN DOSE THERAPY REFERENCE: * Patients > 75 years receive moderate or high dose statin therapy. * Patients 75 years or YOUNGER should receive HIGH intensity statin dose unless contraindicated. You will be required to document reason for non-treatment if statin daily dose does not meet guidelines. HIGH DOSE STATIN THERAPY DAILY Atorvastatin > than or = to 40 mg Rosuvastatin > than or = to 20 mg Amlodipine + Atorvastatin > than or = to 2.5/40 mg Ezetimibe + Simvastatin 10/80 mg Simvastatin 80mg Discharge Plan Admission Admit Date/Time: 07/27/24 19:26 Primary Reason for Your Visit: TIA Attending Provider: Luna Marcial Primary Care Provider: Agapito Saucedo Consulting Providers: Lavelle Narvaez; Faby Burns; Mary New; Reba Romero; Marta Small; Kalyan Berger; Ilda Anaya; Bryan Ortega; Sundar Bernal; David Morales; Shwetha Ojeda; Edilson Wills; Yelitza Schwartz; Liane Ludwig; Lani Beatty; Harpal Sandhu; Lyla Hughes; Eliseo Tejada; Joya Gusman; Namita Arias; Angela Rosa Instructions Patient Instructions: TIA Dc Discharge Orders/Prescriptions Prescriptions: New aspirin 81 mg Tablet,Chewable 81 mg PO BREAKFAST Qty: 30 2RF atorvastatin 40 mg tablet 40 mg PO QHS Qty: 30 2RF Continued levocetirizine [Xyzal] 5 mg tablet 5 mg PO DAILY clonazepam 1 mg tablet 1 mg PO BID Patient Comments: TAKE 1 TABLET TWICE DAILY, AND 1/2 TAB IN THE AFTERNOON lamotrigine [Lamictal] 200 mg tablet 400 mg PO DAILY losartan 25 mg Tablet 25 mg PO DAILY furosemide 20 mg tablet 20 mg PO DAILY albuterol sulfate 90 mcg/actuation HFA aerosol inhaler 2 inh inhalation Q4H PRN (Reason: shortness of breath or wheezing) clonazepam 1 mg tablet 0.5 mg PO 1200 PRN (Reason: anxiety) Patient Comments: TAKE 1 TABLET TWICE DAILY, AND 1/2 TAB IN THE AFTERNOON metoprolol succinate 50 mg tablet extended release 24 hr 50 mg PO DAILY quetiapine 400 mg tablet 400 mg PO QHS metoprolol tartrate 50 mg tablet 50 mg PO DAILY PRN (Reason: HIGH BLOOD PRESSURE) Patient Comments: PT STATES SHE TAKES THE SUCCINATE TWICE DAILY, AND IF HER HEART RATE GOES OVER 130. magnesium oxide 400 mg magnesium tablet 400 mg PO DAILY pantoprazole 40 mg tablet,delayed release (DR/EC) 40 mg PO DAILY Qty: 90 0RF Discontinued atorvastatin 10 mg tablet 10 mg PO DAILY Patient Comments: PT HASNT STARTED YET, SHE PICKED UP MED YESTERDAY 07/26/24 Other Ambulatory Orders: 30 Day Event Recorder Preventi (Urgent) Timeframe: 1 Day Facility: [facility] - Location: Cardiovascular Services Ordered By: Dr. Luna Marcial Referrals / Follow Up: Agapito Saucedo DO [Primary Care Provider] - Within 1 Week Junaid Meneses MD [Non-Staff -Ordering Privileges] - Within 2 Weeks Disposition Disposition (needs filled in before D/C Order can be placed): Home, Self Care Charges/Coding Visit Charges Inpatient E&M: 94517 Disch Hosp >30min
== END 2024-07-29 14:14 | disposition home or self-care (01) ==
LOC: ED 19:05 → PCU 19:35
PROVIDERS: Nurse Practitioner; Admitting Provider Internal Medicine; Emergency Provider Emergency Medicine; PCP Student in an Organized Health Care Education/Training Program; Referring Provider Emergency Medicine; Visit Provider Student in an Organized Health Care Education/Training Program
DX: G45.9 Transient cerebral ischemic attack, unspecified (principal); F60.3 Borderline personality disorder; G89.29 Other chronic pain; Z87.891 Personal history of nicotine dependence; H53.2 Diplopia; E78.5 Hyperlipidemia, unspecified; Z86.19 Personal history of other infectious and parasitic diseases; K21.9 Gastro-esophageal reflux disease without esophagitis; I10 Essential (primary) hypertension; R42 Dizziness and giddiness; J45.909 Unspecified asthma, uncomplicated; G47.33 Obstructive sleep apnea (adult) (pediatric); Z79.899 Other long term (current) drug therapy; H53.8 Other visual disturbances
CPT/HCPCS: 36415; 70496; 70498; 70551; 71046; 80048; 80053; 80061; 81001; 82248; 82962; 83036; 83690; 83735; 84100; 84443; 85025; 87631; 92523; 92610; 93005; 93306; 94762; 96361; 96372; 96374; 97802; 99221; 99283; Q9957; Q9967; A4216; G0378; J2405

== ENCOUNTER → 2024-10-11 | Outpatient (CLI) | payer MEDICARE, SELFPAY ==
--- NOTE | 2024-10-11 14:38 | BI_ITS ---
MAMMOGRAPHY - BILATERAL SCREENING REASON FOR EXAM: Female, 59 years old. Routine annual screening examination. PERTINENT HISTORY: Sister with breast cancer. TECHNIQUE: Digital bilateral breast kasia (3D mammographic acquisition) in the CC and MLO projections. 2-D mediolateral oblique (MLO) and craniocaudad (CC) views of both breasts were obtained. CAD: Full Field Digital Mammography with Computer Added Detection was performed. COMPARISON: Comparison is made with prior study October 05, 2023 and September 22, 2022. FINDINGS: Breast Composition: The breasts are heterogeneously dense, which may obscure small masses. There are no dominant masses or suspicious calcifications. Stable bilateral fat-containing axillary lymph nodes. No other significant abnormalities are identified. There has been no significant change since the prior study. BI/SCRN MAMM (CAD)W/KASIA BILAT IMPRESSION: Stable bilateral screening mammogram. Yearly follow-up mammogram recommended. (A) ASSESSMENT CATEGORY: BIRADS Category 2: Benign. A letter regarding these results will be sent to the patient by the facility within 30 days. Approximately 10% of breast cancers are not detected by mammography. A normal mammogram should not delay biopsy of a clinically suspicious abnormality. [id number] Electronically Signed: Baljeet Luis MD at 15:19 EST ,
== END | disposition home or self-care (01) ==
LOC: OPBI 14:36
PROVIDERS: PCP Student in an Organized Health Care Education/Training Program; Referring Provider Student in an Organized Health Care Education/Training Program; Visit Provider Student in an Organized Health Care Education/Training Program
DX: Z12.31 Encounter for screening mammogram for malignant neoplasm of breast (principal)
CPT/HCPCS: 77063; 77067

== ENCOUNTER → 2024-11-02 | Outpatient (CLI) | payer MEDICARE, SELFPAY ==
--- NOTE | 2024-11-02 10:10 | BD_ITS ---
STUDY: DUAL ENERGY X-RAY ABSORPTIOMETRY / DXA REASON FOR EXAM: Female, 59 years old. Postmenopausal TECHNIQUE: Bone Mineral Density (BMD) measurements of right hip and left forearm were obtained. COMPARISON: No relevant prior comparison study available FINDINGS: Right Femur Total: g/cm2 (0.862) / T-score (-0.7) / Z-score (0.3) Right Femoral Neck: g/cm2 (0.657) / T-score (-1.7) / Z-score (-0.5) Left Forearm: g/cm2 (0.542) / T-score (-2.5) / Z-score (-1.3) BD/Dexa Bone Density Study IMPRESSION: The patient is considered osteoporotic as outlined below according to World Billy Organization (WHO) criteria with a 8.2% fracture risk. Reference Information: The T-score is the number of standard deviations above or below the standard which is normal for young adults at their peak bone mineral density. The World Health Organization (WHO) interprets the T-scores as follows: Above -1 Normal bone density Between -1 and -2.5 Osteopenia Equal to / or below -2.5 Osteoporosis As a practical clinical guideline, osteopenia may be graded as follows: Mild -1 through -1.5 Moderate -1.6 through -2.0 Severe -2.1 through -2.4 The Z-score is the number of standard deviations above or below age-matched controls. A Z-score of less than -1.5 would be considered abnormal. References: 1. NIH Osteoporosis and Related Bone Diseases http://www.osteo.org 2. International Society for Clinical Densitometry http://www.iscd.org 3. National Osteoporosis Foundation http://www.nof.org Electronically Signed: Shivam Brambila MD at 22:44 EST ,
== END | disposition home or self-care (01) ==
LOC: OPBD 10:09
PROVIDERS: PCP Student in an Organized Health Care Education/Training Program; Referring Provider Orthopaedic Surgery Orthopaedic Surgery of the Spine; Visit Provider Orthopaedic Surgery Orthopaedic Surgery of the Spine
DX: M81.0 Age-related osteoporosis without current pathological fracture (principal); M85.80 Other specified disorders of bone density and structure, unspecified site; Z78.0 Asymptomatic menopausal state
CPT/HCPCS: 77080

== ENCOUNTER 2024-11-04 19:19 | Emergency (ER) | payer MEDICARE, SELFPAY ==
[2024-11-04 19:20] VITALS: BP 164/92; PULSE 81; RESP 15; TEMP 36.2; O2SAT 96; BMI 32.4
--- NOTE | 2024-11-04 19:33 | EX.ED.DYSGE1 ---
HPI <RANDALL Nash - Last Filed: 11/04/24 20:30> History of Present Illness Chief Complaint: Edema Narrative Narrative: 59-year-old female has chronic bilateral ankle edema. She states she takes Lasix as needed. She is not sure if she has congestive heart failure. Over the last day or so she had pain in the left lateral ankle and wanted to be checked for a blood clot. The triage note is inaccurate regarding her complaint?she did have a TIA last month, but is not presently having any weakness numbness or tingling, rather it is pain in the lateral ankle. She had no known injury. She is on aspirin, no blood thinners. 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 Depression Anxiety Alcohol use Ambulates with cane Fatty liver Back pain History of IBS Gastric reflux Former smoker Pulmonary hypertension CPAP (continuous positive airway pressure) dependence History of edema History of stress test H/O transesophageal echocardiography (ELAINE) for monitoring Normal Holter exam History of irregular heartbeat Premature ventricular contraction Premature atrial contraction ARLEN (obstructive sleep apnea) SVT (supraventricular tachycardia) Non-rheumatic mitral regurgitation Nonrheumatic mitral (valve) prolapse Tachycardia Osteoarthritis History of emotional problems Hematuria Home Medications ?Medication ?Instructions ?Recorded ?Last Taken ?Type magnesium oxide 400 mg PO DAILY 01/27/21 07/27/24 History levocetirizine 5 mg tablet (Xyzal) 5 mg PO DAILY 09/13/22 07/27/24 History losartan 25 mg tablet 25 mg PO DAILY 04/29/23 07/27/24 History pantoprazole 40 mg tablet,delayed 40 mg PO DAILY #90 tabs 07/12/23 07/27/24 Rx release clonazepam 1 mg tablet 1 mg PO BID anxiety 04/24/24 07/27/24 History lamotrigine 200 mg tablet 400 mg PO DAILY 04/24/24 07/27/24 History (Lamictal) albuterol sulfate 90 mcg/actuation 2 inh inhalation Q4H PRN shortness 07/27/24 Unknown History aerosol inhaler of breath or wheezing clonazepam 1 mg tablet 0.5 mg PO 1200 PRN anxiety 07/27/24 07/27/24 History metoprolol succinate 50 mg 50 mg PO DAILY 07/27/24 07/27/24 History tablet,extended release 24 hr metoprolol tartrate 50 mg tablet 50 mg PO DAILY PRN HIGH BLOOD 07/27/24 Unknown History PRESSURE aspirin 81 mg chewable tablet 81 mg PO BREAKFAST #30 tabs 07/29/24 Unknown Rx quetiapine 100 mg tablet 100 mg PO QHS 08/30/24 Unknown History quetiapine 200 mg tablet 400 mg PO QHS 08/30/24 Unknown History rosuvastatin 20 mg tablet 20 mg PO QHS 08/30/24 Unknown History furosemide 20 mg tablet 20 mg PO DAILY PRN edema #90 tabs 10/17/24 Unknown Rx vitamin E (dl, acetate) 180 mg 180 mg PO QDAY 10/17/24 Unknown History (400 unit) capsule Allergy/AdvReac Type Severity Reaction Status Date / Time bethanechol (From Urecholine) Allergy Mild saliva Verified 11/04/24 19:20 adhesive tape Allergy rash Verified 11/04/24 19:20 Sulfa (Sulfonamide AdvReac Rash Verified 11/04/24 19:20 Antibiotics) Family History Mother Anxiety Arthritis Depression Mental disorder Osteoporosis Atrial fibrillation Sister Breast cancer Diabetes Brother Diabetes Father CAD (coronary artery disease) History of coronary artery bypass surgery Atrial fibrillation Gallbladder cancer Diabetes Heart disease Alcoholism Aunt Colon cancer Other Hypertension Melanoma Surgical History History of surgery History of rotator cuff surgery History of cardiac catheterization Hx of arthroscopy of right knee (~2017) History of tonsillectomy (~2008) History of bladder surgery (~1971) Social History household members: spouse current occupational status: unemployed 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 CVS: Negative for chest pain. Respiratory: Negative for shortness of breath. Skin: Negative for rash, abscess, or wound. Musc: Positive for left ankle pain. No trauma. EXAM <RANDALL Nash - Last Filed: 11/04/24 20:30> Physical Exam Narrative Exam Narrative: CONST: Patient sitting in no acute distress. EYES: Normal inspection. NECK: Normal inspection. RESP: No respiratory distress, CTAB. CVS: Regular rate and rhythm, no murmur, no gallop. SKIN: Color normal, no rash, warm, dry, intact. EXTREMITIES: Symmetric 2+ pitting edema both ankles. There are a few small scattered bruises along the left ankle and lateral calf area. There is no warmth or tenderness of the extremity, full range of motion, 5/5 strength in hip flexion, knee flexion/extension, DF/PF. Normal sensation. 2+ DP pulse. No tenderness over deep venous system and no palpable cords. NEURO: Alert and answering questions appropriately. PSYCH: Normal affect. Const Vital Signs: 11/04/24 19:20 11/04/24 19:55 Temperature 97.1 F L Temperature Source Temporal Pulse Rate 81 Respiratory Rate 15 Respiratory Effort Normal Respiratory Pattern Normal Blood Pressure 164/92 H Blood Pressure Mean 116 Pulse Ox 96 Oxygen Delivery Method Room Air <Dr. Ric Genao, DO - Last Filed: 11/04/24 22:13> Physical Exam Const Vital Signs: 11/04/24 19:20 11/04/24 19:55 Temperature 97.1 F L Temperature Source Temporal Pulse Rate 81 Respiratory Rate 15 Respiratory Effort Normal Respiratory Pattern Normal Blood Pressure 164/92 H Blood Pressure Mean 116 Pulse Ox 96 Oxygen Delivery Method Room Air MDM <RANDALL Nash - Last Filed: 11/04/24 20:30> MDM MDM Narrative Medical decision making narrative: Patient presents with atraumatic left lateral ankle pain. The triage note was an accurate?her only complaint is pain, not weakness or paresthesias. I pointed out to her there are few small scattered bruises but she does not recall an injury. She has full range of motion and is neurovascularly intact. She was initially concerned about a blood clot but this area is not consistent with and she has no tenderness of the deep venous system and no risks for recent DVT. I provided reassurance. I offered an x-ray for her ankle which she declined. She is able to ambulate easily and was given conservative care instructions. She was discharged in stable condition. <Dr. Ric Genao, DO - Last Filed: 11/04/24 22:13> [facility] MDM Narrative Medical decision making narrative: Patient presents with atraumatic left lateral ankle pain. The triage note was an accurate?her only complaint is pain, not weakness or paresthesias. I pointed out to her there are few small scattered bruises but she does not recall an injury. She has full range of motion and is neurovascularly intact. She was initially concerned about a blood clot but this area is not consistent with and she has no tenderness of the deep venous system and no risks for recent DVT. I provided reassurance. I offered an x-ray for her ankle which she declined. She is able to ambulate easily and was given conservative care instructions. She was discharged in stable condition. ED attending note: I evaluated the patient in conjunction with the RD. I agree with his/her statements and above findings. I have personally performed a face to face assessment of the patient and have reviewed the RD Note. I performed a substantive portion of the visit including all aspects of the following. I personally saw the patient performed chart review, physical exam, reviewed labs, imaging (if obtained), and formulated a treatment and management plan. Exam with bruising noted to lateral malleolus. There is no calf tenderness or significant unilateral edema. I do Not suspect patient symptoms are related to a blood clot. The patient displayed a no focal neurologic deficits to suggest acute CVA or TIA. There is no report of shortness of breath or chest pain to suggest CHF or PE. Patient was given strict return precautions and follow-up instructions. No indication for advanced imaging or further testing at this time. This note was generated with [employer] dictation software. It may contain incorrect words, spelling, and punctuation that were not noted in review of the chart prior to signing. Discharge Plan Triage Chief Complaint: Edema ED Midlevel Provider: Madelin Manuel ED Provider: Ric Genao Dx/Rx/DC Orders Clinical Impression: Ankle pain, left Instructions: ED Ankle Sprain (Adult) Prescriptions: No Action levocetirizine [Xyzal] 5 mg tablet 5 mg PO DAILY clonazepam 1 mg tablet 1 mg PO BID Patient Comments: TAKE 1 TABLET TWICE DAILY, AND 1/2 TAB IN THE AFTERNOON lamotrigine [Lamictal] 200 mg tablet 400 mg PO DAILY vitamin E (dl, acetate) 180 mg (400 unit) capsule 180 mg PO QDAY rosuvastatin 20 mg tablet 20 mg PO QHS quetiapine 200 mg tablet 400 mg PO QHS quetiapine 100 mg tablet 100 mg PO QHS losartan 25 mg Tablet 25 mg PO DAILY albuterol sulfate 90 mcg/actuation HFA aerosol inhaler 2 inh inhalation Q4H PRN (Reason: shortness of breath or wheezing) clonazepam 1 mg tablet 0.5 mg PO 1200 PRN (Reason: anxiety) Patient Comments: TAKE 1 TABLET TWICE DAILY, AND 1/2 TAB IN THE AFTERNOON metoprolol succinate 50 mg tablet extended release 24 hr 50 mg PO DAILY metoprolol tartrate 50 mg tablet 50 mg PO DAILY PRN (Reason: HIGH BLOOD PRESSURE) Patient Comments: PT STATES SHE TAKES THE SUCCINATE TWICE DAILY, AND IF HER HEART RATE GOES OVER 130. aspirin 81 mg Tablet,Chewable 81 mg PO BREAKFAST Qty: 30 2RF magnesium oxide 400 mg magnesium tablet 400 mg PO DAILY pantoprazole 40 mg tablet,delayed release (DR/EC) 40 mg PO DAILY Qty: 90 0RF furosemide 20 mg tablet 20 mg PO DAILY PRN (Reason: edema) Qty: 90 3RF Primary Care Provider: Agapito Saucedo Referrals: Agapito Saucedo DO [Primary Care Provider] - Activity Restrictions/Additional Instructions: Thanks for letting us take care of you today! The pain on your outer ankle is not in a location where you would develop a blood clot. There is a small amount of bruising so I suspect that you have pain from a minor injury. I recommend ice and Tylenol as needed. Print Language: Malawian Disposition Disposition: Home, Self Care Discharge Date/Time: 11/04/24 20:30
== END 2024-11-04 20:30 | disposition home or self-care (01) ==
PROVIDERS: Emergency Provider Emergency Medicine; PCP Student in an Organized Health Care Education/Training Program; Visit Provider Emergency Medicine
DX: M25.572 Pain in left ankle and joints of left foot (principal); R60.0 Localized edema; Z87.891 Personal history of nicotine dependence; Z79.82 Long term (current) use of aspirin; J45.909 Unspecified asthma, uncomplicated; K21.9 Gastro-esophageal reflux disease without esophagitis
CPT/HCPCS: 99282

== ENCOUNTER → 2024-11-08 | Outpatient (CLI) | payer MEDICARE, SELFPAY ==
--- NOTE | 2024-11-08 11:02 | MRI_ITS ---
STUDY: MRI LUMBAR SPINE WITHOUT CONTRAST REASON FOR EXAM: Female, 59 years old.pain left leg pain -- patient has dorsal column stimulator TECHNIQUE: Standardized fat and water weighted pulse sequences were obtained in the sagittal and axial planes. COMPARISON: X-ray the lumbar spine dated October 25, 2024. MRI the lumbar spine dated January 12, 2023 FINDINGS: Demonstrated marrow edema or fracture or compression deformity. No lytic or blastic/aggressive lesions are seen. No demonstrated evidence of vertebral osteomyelitis or discitis. Spinal stimulating device enters the posterior spinal canal at the T11-T12 level. Normal distal spinal cord and nerve roots. Normal lumbar lordosis. There is no substantial scoliosis. Normal conus medullaris that terminates at the L1 level. T12-L1: Normal endplates. Normal disc height, hydration and morphology. Normal bilateral facet joints. Normal central canal and bilateral lateral recesses. Normal bilateral intervertebral neural foramina. L1-2: Normal endplates. Normal disc height, hydration and morphology. Normal bilateral facet joints. Normal central canal and bilateral lateral recesses. Normal bilateral intervertebral neural foramina. L2-3: Normal endplates. Normal disc height, hydration and morphology. Normal bilateral facet joints. Normal central canal and bilateral lateral recesses. Normal bilateral intervertebral neural foramina. L3-4: Normal endplates. Normal disc height, hydration and morphology. Normal bilateral facet joints. Normal central canal and bilateral lateral recesses. Normal bilateral intervertebral neural foramina. L4-5: Mild disc space narrowing without bulging or herniation posteriorly. Slight anterolisthesis of L4 and L5 of 2 mm. Mild central canal stenosis and bilateral lateral recess stenosis with nerve root compression due to moderate facet joint and ligamenta flava hypertrophy. Moderate bilateral foraminal stenosis with nerve root compression. L5-S1: Normal endplates. Diffuse disc desiccation with mild to moderate disc space narrowing and mild posterior annular bulging. Normal bilateral facet joints. Normal central canal and bilateral lateral recesses. Normal bilateral intervertebral neural foramina. Normal visualized sacral ala. Normal visualized paraspinous soft tissue structures. MRI/Spine Lumbar (Routine) IMPRESSION: 1. Multilevel degenerative changes, as described above. Electronically Signed: Lemuel Magdaleno MD at 15:32 EST ,
== END | disposition home or self-care (01) ==
LOC: MRI 10:58
PROVIDERS: PCP Student in an Organized Health Care Education/Training Program; Referring Provider Orthopaedic Surgery Orthopaedic Surgery of the Spine; Visit Provider Orthopaedic Surgery Orthopaedic Surgery of the Spine
DX: M43.16 Spondylolisthesis, lumbar region (principal)
CPT/HCPCS: 72148

== ENCOUNTER 2024-12-02 18:14 | Emergency (ER) | payer MEDICARE, SELFPAY ==
[2024-12-02 18:14] VITALS: BP 139/87; PULSE 62; RESP 18; TEMP 36.6; O2SAT 99; BMI 31.8
--- NOTE | 2024-12-02 21:20 | ED.RN ---
Pt PO actually 4 per report form previous triage nurse, changed accordingly.
[2024-12-02 21:57] VITALS: BP 119/83; PULSE 67; O2SAT 98
--- NOTE | 2024-12-02 22:44 | ED.VIS.BACK ---
HPI History of Present Illness Chief Complaint: Back Informant: patient Onset/Context/Timing Onset: Today Context: Gradual Onset Timing: Continuous Quality: Burning Location: Lumbar Worsened by: improves with Nothing Relieved by: Nothing Associated Symptoms Associated Symptoms: Radiation to Left Leg; Negative for Numbness, Tingling, Radiation to Right Leg, Fever, Abdominal Pain, Dysuria, Unable to Ambulate, Unable to Transfer, Urinary Retention, Urinary Incontinence, Constipation or Fecal Incontinence Narrative Narrative: Patient presents with back pain that became worse today. Patient states she has a history of back pain and degenerative disc disease. Patient states that she has had an MRI which showed a herniated disc. Patient states she is in the process of getting scheduled for surgery with Dr. Guerra from orthopedics. Patient denies any new trauma or injury. Patient states her pain radiates down her left leg. Patient denies any bowel or bladder changes. Patient denies any saddle anesthesia. Patient admits to some tingling in her left calf but denies any weakness. 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 Depression Anxiety Alcohol use Ambulates with cane Fatty liver Back pain History of IBS Gastric reflux Former smoker Pulmonary hypertension CPAP (continuous positive airway pressure) dependence History of edema History of stress test H/O transesophageal echocardiography (ELAINE) for monitoring Normal Holter exam History of irregular heartbeat Premature ventricular contraction Premature atrial contraction ARLEN (obstructive sleep apnea) SVT (supraventricular tachycardia) Non-rheumatic mitral regurgitation Nonrheumatic mitral (valve) prolapse Tachycardia Osteoarthritis History of emotional problems Hematuria Home Medications ?Medication ?Instructions ?Recorded ?Last Taken ?Type magnesium oxide 400 mg PO DAILY 01/27/21 07/27/24 History levocetirizine 5 mg tablet (Xyzal) 5 mg PO DAILY 09/13/22 07/27/24 History losartan 25 mg tablet 25 mg PO DAILY 04/29/23 07/27/24 History pantoprazole 40 mg tablet,delayed 40 mg PO DAILY #90 tabs 07/12/23 07/27/24 Rx release clonazepam 1 mg tablet 1 mg PO BID anxiety 04/24/24 07/27/24 History lamotrigine 200 mg tablet 400 mg PO DAILY 04/24/24 07/27/24 History (Lamictal) albuterol sulfate 90 mcg/actuation 2 inh inhalation Q4H PRN shortness 07/27/24 Unknown History aerosol inhaler of breath or wheezing clonazepam 1 mg tablet 0.5 mg PO 1200 PRN anxiety 07/27/24 07/27/24 History metoprolol tartrate 50 mg tablet 50 mg PO DAILY PRN HIGH BLOOD 07/27/24 Unknown History PRESSURE aspirin 81 mg chewable tablet 81 mg PO BREAKFAST #30 tabs 07/29/24 Unknown Rx quetiapine 100 mg tablet 100 mg PO QHS 08/30/24 Unknown History quetiapine 200 mg tablet 400 mg PO QHS 08/30/24 Unknown History rosuvastatin 20 mg tablet 20 mg PO QHS 08/30/24 Unknown History furosemide 20 mg tablet 20 mg PO DAILY PRN edema #90 tabs 10/17/24 Unknown Rx vitamin E (dl, acetate) 180 mg 180 mg PO QDAY 10/17/24 Unknown History (400 unit) capsule metoprolol succinate 50 mg 75 mg (1.5 x 50 mg) PO .COMPLEX 11/19/24 Unknown Rx tablet,extended release 24 hr #135 tabs alendronate 70 mg tablet mg PO 11/23/24 Unknown History Allergy/AdvReac Type Severity Reaction Status Date / Time bethanechol (From Urecholine) Allergy Mild saliva Verified 12/02/24 18:14 adhesive tape Allergy rash Verified 12/02/24 18:14 Sulfa (Sulfonamide AdvReac Rash Verified 12/02/24 18:14 Antibiotics) Family History Mother Anxiety Arthritis Depression Mental disorder Osteoporosis Atrial fibrillation Sister Breast cancer Diabetes Brother Diabetes Father CAD (coronary artery disease) History of coronary artery bypass surgery Atrial fibrillation Gallbladder cancer Diabetes Heart disease Alcoholism Aunt Colon cancer Other Hypertension Melanoma Surgical History History of surgery History of rotator cuff surgery History of cardiac catheterization Hx of arthroscopy of right knee (~2017) History of tonsillectomy (~2008) History of bladder surgery (~1971) Social History household members: spouse current occupational status: unemployed 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 Smoking Status: Former smoker quit date: 11/07/09 pack-years: 20 Electronic Cigarette Use: not used alcohol intake: current alcohol intake frequency: a few times a month Alcohol type: beer substance use type: does not use caffeine: Yes Type: coffee Number of servings: 1 what type of physical activity do you participate in: swimming frequency: 3-4 times per week do you feel safe at home: Yes ROS ROS ED Constitutional Constitutional ED: Denies chills or fever(s) Eyes Eyes: Denies blurry vision or change in vision ENT ENT ED: Denies rhinorrhea or sore throat Cardiovascular Cardiovascular: Denies chest pain or palpitations Respiratory/Chest Respiratory/Chest: Denies cough or dyspnea Gastrointestinal Gastrointestinal: Reports nausea; Denies vomiting Genitourinary Genitourinary ED: Denies dysuria or hematuria Musculoskeletal Musculoskeletal: Reports back pain; Denies neck pain Integumentary Denies abscess or rash Neurologic Neurologic: Denies headache(s) or weakness Allergic/Immunologic Allergic/Immunologic ED: Denies mouth swelling or urticaria EXAM Physical Exam Const Vital Signs: 12/02/24 18:14 12/02/24 21:57 Temperature 97.8 F Temperature Source Oral Pulse Rate 62 67 Respiratory Rate 18 Blood Pressure 139/87 H 119/83 H Blood Pressure Mean 104 95 Pulse Ox 99 98 Oxygen Delivery Method Room Air Positive well nourished and well developed Constitutional Narrative: BMI is 31.8 General Appearance ED: well developed and NAD HEENT Reports moist mucous membranes Neck supple and no JVD Back/Spine Lumbar Spine / Lower Back: ROM limited and straight leg raise negative bilaterally Extremity normal to inspection Neuro oriented x3 and no sensory deficits noted Sensorium / Orientation: alert Motor Exam: strength 5/5 throughout Deep Tendon Reflexes: Rt Patellar (L4): 2+, Lt Patellar (L4): 2+, Rt Ankle (S1): 2+ and Lt Ankle (S1): 2+ Deep Tendon Reflexes Back: Rt Patellar (L4): 2+, Lt Patellar (L4): 2+, Rt Ankle (S1): 2+ and Lt Ankle (S1): 2+ Psych mental status grossly normal MDM MDM MDM Narrative Medical decision making narrative: Since the patient had recent MRI and imaging, I do not feel any further imaging is necessary at this time. Patient was given injection of morphine. Patient felt better on reevaluation. Patient was able to ambulate without difficulty. Patient was instructed to follow-up with her orthopedic surgeon as scheduled. Patient was instructed to return if worse in any way. Patient understood and was agreeable with the plan. All questions were answered. Discharge Plan Triage Chief Complaint: Back ED Provider: Jefferson Marshall Dx/Rx/DC Orders Clinical Impression: Acute low back pain, DDD (degenerative disc disease), lumbar Instructions: ED Back Pain (Acute or Chronic) Prescriptions: No Action levocetirizine [Xyzal] 5 mg tablet 5 mg PO DAILY clonazepam 1 mg tablet 1 mg PO BID Patient Comments: TAKE 1 TABLET TWICE DAILY, AND 1/2 TAB IN THE AFTERNOON lamotrigine [Lamictal] 200 mg tablet 400 mg PO DAILY vitamin E (dl, acetate) 180 mg (400 unit) capsule 180 mg PO QDAY rosuvastatin 20 mg tablet 20 mg PO QHS quetiapine 200 mg tablet 400 mg PO QHS quetiapine 100 mg tablet 100 mg PO QHS alendronate 70 mg tablet PO losartan 25 mg Tablet 25 mg PO DAILY albuterol sulfate 90 mcg/actuation HFA aerosol inhaler 2 inh inhalation Q4H PRN (Reason: shortness of breath or wheezing) clonazepam 1 mg tablet 0.5 mg PO 1200 PRN (Reason: anxiety) Patient Comments: TAKE 1 TABLET TWICE DAILY, AND 1/2 TAB IN THE AFTERNOON metoprolol tartrate 50 mg tablet 50 mg PO DAILY PRN (Reason: HIGH BLOOD PRESSURE) Patient Comments: PT STATES SHE TAKES THE SUCCINATE TWICE DAILY, AND IF HER HEART RATE GOES OVER 130. aspirin 81 mg Tablet,Chewable 81 mg PO BREAKFAST Qty: 30 2RF magnesium oxide 400 mg magnesium tablet 400 mg PO DAILY pantoprazole 40 mg tablet,delayed release (DR/EC) 40 mg PO DAILY Qty: 90 0RF furosemide 20 mg tablet 20 mg PO DAILY PRN (Reason: edema) Qty: 90 3RF metoprolol succinate 50 mg tablet extended release 24 hr 75 mg PO .COMPLEX Qty: 135 3RF Rx Instructions: 75 mg orally DAILY (pt also takes a PRN dose of Metoprolol Tartrate 50 mg PRN episode of rapid HR); Primary Care Provider: Agapito Saucedo Referrals: Dexter Guerra MD [Med Staff - Active Staff] - 5-7 Days Agapito Saucedo DO [Primary Care Provider] - 5-7 Days Print Language: Nicaraguan Disposition Disposition: Home, Self Care
[2024-12-02] MEDS: Morphine 4 MG/ML Syringe IM (23:01)
[2024-12-03 00:14] VITALS: BP 119/83; PULSE 67; RESP 16; TEMP 36.4; O2SAT 98
== END 2024-12-03 00:16 | disposition home or self-care (01) ==
PROVIDERS: Emergency Provider Emergency Medicine; PCP Student in an Organized Health Care Education/Training Program; Visit Provider Emergency Medicine
DX: M51.360 Other intervertebral disc degeneration, lumbar region with discogenic back pain only (principal); Z87.891 Personal history of nicotine dependence; J45.909 Unspecified asthma, uncomplicated; K21.9 Gastro-esophageal reflux disease without esophagitis
CPT/HCPCS: 96372; 99282

== ENCOUNTER 2024-12-17 16:12 | Inpatient (IN) | payer MEDICARE, SELFPAY ==
[2024-12-05 18:04] LABS: Absolute Lymphocyte Count 2.42 X10^3/uL (0.83-4.51); Absolute Neutrophil Count 5.1 X10^3/uL (2.0-7.7); Basophil# 0.06 X10^3/uL; Basophil% 0.7 % (0-1); Eosinophil# 0.39 X10^3/uL; Eosinophils% 4.6 % (0-5); Hematocrit 37.8 % (37-47); Hemoglobin 13.4 g/dL (12.0-15.0); Lymphocyte # 2.42 X10^3/ul (0.83-4.51); Lymphocyte % 28.7 % (19-41); Mean Corp Hgb Conc 35.4 g/dL (32-36); Mean Corpuscular Hgb 32.6 pg (27.0-32.0); Mean Platelet Vol. 11.9 fl (6.2-12.0); Monocyte# 0.43 X10^3/uL; Monocyte% 5.1 % (0-10); NRBC Flagged by Analyzer 0 % (0-5); Neutrophil % 60.5 % (47-70); Platelet Count 182 K/mm3 (150-450); RBC Distribution Width CV 11.9 % (11.6-14.6); RBC Distribution Width SD 39.6 fl (35.1-43.9); Red Blood Count 4.11 M/mm3 (4.2-5.4); White Blood Count 8.4 K/mm3 (4.4-11.0)
[2024-12-05 19:23] LABS: Anion Gap 5 (5-15); BUN 11 mg/dL (7-18); BUN/Creat Ratio 14.7 RATIO (10-20); Calcium,Total 9.1 mg/dL (8.5-10.1); Chloride 107 mmol/L (98-107); Creatinine, Serum 0.75 mg/dL (0.55-1.02); EST Glomerular Filtration Rate 84 mL/min (>60); Est Glom Filt Rate - Afr Amer 101 mL/min (>60); Glucose 89 mg/dL (74-106); Potassium 4.1 mmol/L (3.5-5.1); Sodium Level 139 mmol/L (136-145)
[2024-12-05 19:39] LABS: HIV - WCH Non-Reactive (Nonreactive); Hepatitis B Surface Antibody Reactive; Hepatitis C Antibody Non-Reactive (Nonreactive)
[2024-12-05 19:55] LABS: Magnesium 2.2 mg/dL (1.6-2.6)
[2024-12-07 05:06] LABS: Hepatitis A AB, Total Negative (Negative)
[2024-12-17] VITALS (15 sets, daily range): BP systolic 105–148; BP diastolic 53–93; PULSE 65–87; RESP 12–18; TEMP 36–36.9; O2SAT 95–100; BMI 31.8
--- NOTE | 2024-12-17 10:12 | PRE.ANES_ITS ---
ASA Classification* ASA Classification ASA Classification: 2 Assessment & Plan Anesthesia* Anesthesia Assessment Anesthesia Assessment: Discussed sedation and/or anesthesia options, risks, benefits, and alternatives with patient/parents/legal guardian/POA. Questions invited. The patient/parents/legal guardian/POA seems to understand and agrees to proceed with anesthesia plan. Reviewed the physical assessment, medical history, allergy history and patient home medications list prior to surgery/procedure/anesthetic and documented any changes. Performed airway and anesthesia risk assessments. Anesthesia Type Anesthesia Type: General Anesthesia Focused Assessment* Temperature: 98.3 F Pulse Rate: 76 Blood Pressure: 105/53 Respiratory Rate: 16 Pulse Ox: 97 Airway Assessment Mouth opens: >3 cm Mallampati Score: II Focused Labs Anesthesia Preop lab: CBC WBC 8.4 K/mm3 (4.4-11.0) 12/05/24 15:46 12/05/24 RBC 4.11 M/mm3 (4.2-5.4) L 12/05/24 15:46 12/05/24 Hgb 13.4 g/dL (12.0-15.0) 12/05/24 15:46 12/05/24 Hct 37.8 % (37-47) 12/05/24 15:46 12/05/24 Plt Count 182 K/mm3 (150-450) 12/05/24 15:46 12/05/24 CHEMISTRY Potassium 4.1 mmol/L (3.5-5.1) 12/05/24 15:46 12/05/24 Sodium 139 mmol/L (136-145) 12/05/24 15:46 12/05/24 Magnesium 2.2 mg/dL (1.6-2.6) 12/05/24 15:46 12/05/24 Phosphorus 3.9 mg/dL (2.5-4.9) 07/28/24 05:50 07/28/24 BUN 11 mg/dL (7-18) 12/05/24 15:46 12/05/24 Creatinine 0.75 mg/dL (0.55-1.02) 12/05/24 15:46 12/05/24 Glucose 89 mg/dL (74-106) 12/05/24 15:46 12/05/24 POC Glucose 92 mg/dL (74-106) 07/27/24 16:24 07/27/24 TSH 3.660 uIU/mL (0.358-3.740) 07/28/24 05:50 09/11/30 COAG Pre-Assessment Diagnosis/Proposed Procedure Planned Operative Procedure(s): 360 Lumbar Fusion L4-5, possible cement augmentation Anesthesia History 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 When Was Last Pacemaker Check QUESTION #4 FULL TEXT: You/Your Family Experience fever (hyperthermia) with Anesthesia Last Oral Intake Last Oral intake: Last Oral Intake NPO since 23:30 12/17/24 09:58 Meds taken in AM with sips of Yes 12/17/24 09:58 water? 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 Female Yes 12/05/24 10:22 HX of Motion Sickness No 12/05/24 10:22 HX of N/V After Surgery No 12/05/24 10:22 Non-Smoker Yes 12/05/24 10:22 Duration of Surgery greater Yes 12/05/24 10:22 than 60 minutes Number of Risk Factors 3 12/05/24 10:22 PONV Score Moderate Risk 12/05/24 10:22 Height & Weight Height & Weight: Anesthesia: Height & Weight Height 5 ft 5 in 12/17/24 09:58 Weight: 87 kg 12/17/24 09:58 Body Mass Index (BMI) 31.8 12/17/24 09:58 Respiratory Assessment Respiratory Assessment - interstate bus dispatcher: Respiratory Tract Infection Hx - interstate bus dispatcher Hx Respiratory Tract Infection No 12/05/24 10:22 STOP Sleep Apnea STOP Sleep Apnea - interstate bus dispatcher: STOP Sleep Apnea - interstate bus dispatcher Hx Hypertension Yes: CONTROLLED ON MED 12/05/24 10:22 Hx Sleep Apnea Yes 12/05/24 10:22 CPAP Yes 12/05/24 10:22 BIPAP No 12/05/24 10:22 Do you snore loudly (louder than talking or can be heard Do you often feel tired/ fatigued/ sleepy during daytime? Has anyone observed you stop breathing during sleep? STOP Results Positive 12/05/24 10:22 QUESTION #5 FULL TEXT : Do you snore loudly (louder than talking or can be heard through closed doors)? 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 Specify any problems Hx of Preganancy in last 3 No 12/05/24 10:22 Months Nurse Filling Out Transfusion VCHRISTIN 12/05/24 10:22 & Questions: Date: 12/05/24 12/05/24 10:22 Time: 10:23 12/05/24 10:22 Patient unable to answer at this time (ie. 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: /Reproductive Hx- interstate bus dispatcher Hx Now Gestational Age (in weeks): EDC: Hx Hx Para Hx Section SAB No 12/05/24 10:22 Active Medications Active Medications: Current Medications Generic Name Dose Route Start Last Admin Trade Name Freq PRN Reason Stop Dose Admin Acetaminophen 1,000 mg 12/17/24 11:25 Acetaminophen 500 Mg Tablet PO 12/17/24 11:26 X1 ONE Cefazolin Sodium 2 gm/ N/A 20 mls @ 400 mls/hr 12/17/24 11:25 IV 12/17/24 11:27 PREOP ONE Tranexamic Acid 1,000 mg/ 110 mls @ 440 mls/hr 12/17/24 11:25 Sodium Chloride IV 12/17/24 11:39 X1 ONE Tranexamic Acid 1,000 mg/ 110 mls @ 440 mls/hr 12/17/24 12:25 Sodium Chloride IV 12/17/24 12:39 X1 ONE Magnesium Sulfate 1 gm/ 102 mls @ 408 mls/hr 12/17/24 11:25 Dextrose IV 12/17/24 11:39 X1 ONE Sodium Chloride 1,000 mls @ 15 mls/hr 12/17/24 09:45 IV 12/22/24 23:04 .Q48H JUNITO Protocol Insulin Human Lispro 1 - 6 unit 12/17/24 11:25 Insulin Lispro 100 Unit/Ml Insuln.Pen SC 12/17/24 17:25 Q4H PRN PRN BG>/= 180, SEE PROTOCOL Protocol PFSH Medical History Marijuana use Sleep apnea History of pain when walking Hypertension TIA (transient ischemic attack) Easy bruising Asthma Restless legs Shortness of breath on exertion Cardiology follow-up encounter History of echocardiogram Major depressive disorder Borderline personality disorder Seasonal allergies Post-menopausal Wears glasses Wears dentures 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 Depression Anxiety Alcohol use Ambulates with cane Fatty liver Back pain History of IBS Gastric reflux Former smoker Pulmonary hypertension CPAP (continuous positive airway pressure) dependence History of edema History of stress test H/O transesophageal echocardiography (ELAINE) for monitoring Normal Holter exam History of irregular heartbeat Premature ventricular contraction Premature atrial contraction ARLEN (obstructive sleep apnea) SVT (supraventricular tachycardia) Non-rheumatic mitral regurgitation Nonrheumatic mitral (valve) prolapse Tachycardia Osteoarthritis History of emotional problems Hematuria Home Medications ?Medication ?Instructions ?Recorded ?Last Taken ?Type magnesium oxide 400 mg PO DAILY SUPPLEMENT 0 01/27/21 12/16/24 07:00 History levocetirizine 5 mg tablet (Xyzal) 5 mg PO DAILY ALLER GIES 09/13/22 12/16/24 22:00 History losartan 25 mg tablet 25 mg PO DAILY BP 04/29/23 0 12/16/24 07:00 History pantoprazole 40 mg tablet,delayed 40 mg PO DAILY GERD #90 tabs 07/12/23 12/17/24 07:30 Rx release clonazepam 1 mg tablet 1 mg PO BID anxiety 04/24/24 07/27/24 History lamotrigine 200 mg tablet 400 mg PO DAILY ANXIETY 04/0712/16/24 12:00 History (Lamictal) clonazepam 1 mg tablet 0.5 mg PO 1200 PRN anxiety 0 07/27/24 12/16/24 12:00 History metoprolol tartrate 50 mg tablet 50 mg PO DAILY PRN HI GH BLOOD 07/27/24 Unknown History PRESSURE aspirin 81 mg chewable tablet 81 mg PO BREAKFAST BLOOD THINNER 07/29/24 12/16/24 07:00 Rx #30 tabs quetiapine 100 mg tablet 100 mg PO QHS SLEEP 08/30/24 Unknown History quetiapine 200 mg tablet 400 mg PO QHS SLEEP 08/30/24 Unknown History rosuvastatin 20 mg tablet 20 mg PO QHS SLEEP 08/30/24 Unknown History furosemide 20 mg tablet 20 mg PO DAILY PRN edema #90 tabs 10/17/24 12/16/24 07:00 Rx vitamin E (dl, acetate) 180 mg 180 mg PO QDAY SLEEP 12/16/24 07:00 History (400 unit) capsule alendronate 70 mg tablet 70 mg PO QWEEK OSTEOPOROSIS 11/23/24 Unknown History ibuprofen 200 mg tablet (Addaprin) 400 mg PO Q8H PRN p ain 12/05/24 Unknown History metoprolol succinate 50 mg 50 mg PO DAILY BP 12/05/24 12/17/24 07:30 History tablet,extended release 24 hr polyethylene glycol 3350 17 17 g PO DAILY STOOL SOFTEN ER 12/05/24 12/16/24 07:00 History gram/dose oral powder (ClearLax) turmeric 400 mg capsule 400 mg PO PRN SUPPLEMENT 12/15/24 History Allergy/AdvReac Type Severity Reaction Status Date / Time bethanechol (From Urecholine) Allergy Mild saliva Verified 12/05/24 15:09 adhesive tape Allergy rash Verified 12/05/24 15:09 Sulfa (Sulfonamide Allergy Rash Verified 12/14/24 08:16 Antibiotics) Family History Mother Anxiety Arthritis Depression Mental disorder Osteoporosis Atrial fibrillation Sister Breast cancer Diabetes Brother Diabetes Father CAD (coronary artery disease) History of coronary artery bypass surgery Atrial fibrillation Gallbladder cancer Diabetes Heart disease Alcoholism Aunt Colon cancer Other Hypertension Melanoma Surgical History History of esophagogastroduodenoscopy (EGD) History of surgery History of rotator cuff surgery History of cardiac catheterization Hx of arthroscopy of right knee (~2017) History of tonsillectomy (~2008) History of bladder surgery (~1971) Social History household members: spouse current occupational status: unemployed 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
[2024-12-17] MEDS: Magnesium 1 GM over 15 mins IV (10:23)
[2024-12-17] MEDS: Acetaminophen 500 MG Tablet 1000 MG PO ×2 (10:25→20:19)
[2024-12-17] MEDS: 0.9% Normal Saline (1000mL) 1,000 ML 15 ML IV ×2 (10:26→17:40)
[2024-12-17 10:52] LABS: Bedside Glucose 97 mg/dL (74-106)
--- NOTE | 2024-12-17 11:41 | PCM.HP.BLA ---
History and Physical Date of Admission: 12/17/24 MR#: [id number] Acct: [id number] Name: RYANNE RENTERIA Rep #: [id number] : 1965 Provider: Dr. Dexter Guerra MD Age/Sex: 59/F Location: [facility] [email or web address] Status: Signed Intake Vital Signs 12/02/2517:14 Height 5 ft 5 in Intake Visit Reasons: lumbar spine Chief Complaint: lumbar spine pre-op Accompanied by: Is patient in pain?: Yes Pain scale (1-10): 5 Allergies bethanechol (From Urecholine) Allergy (Mild, Verified 12/05/24 15:09) salivaadhesive tape Allergy (Verified 12/05/24 15:09) rashSulfa (Sulfonamide Antibiotics) Adverse Reaction (Verified 12/05/24 15:09) Rash Medications ?Medication ?Instructions ?Recorded ?Confirmed ?Type magnesium oxide 400 mg PO DAILY SUPPLEMENT 01/27/21 12/05/24 History levocetirizine 5 mg tablet (Xyzal) 5 mg PO DAILY ALLERGIES 09/13/22 12/05/24 History losartan 25 mg tablet 25 mg PO DAILY BP 04/29/23 12/05/24 History pantoprazole 40 mg tablet,delayed 40 mg PO DAILY GERD #90 tabs 07/12/23 12/05/24 Rx release clonazepam 1 mg tablet 1 mg PO BID anxiety 04/24/24 12/05/24 History lamotrigine 200 mg tablet 400 mg PO DAILY ANXIETY 04/24/24 12/05/24 History (Lamictal) clonazepam 1 mg tablet 0.5 mg PO 1200 PRN anxiety 07/27/24 12/05/24 History metoprolol tartrate 50 mg tablet 50 mg PO DAILY PRN HIGH BLOOD 07/27/24 12/05/24 History PRESSURE aspirin 81 mg chewable tablet 81 mg PO BREAKFAST BLOOD THINNER 07/29/24 12/05/24 Rx #30 tabs quetiapine 100 mg tablet 100 mg PO QHS SLEEP 08/30/24 12/05/24 History quetiapine 200 mg tablet 400 mg PO QHS SLEEP 08/30/24 12/05/24 History rosuvastatin 20 mg tablet 20 mg PO QHS SLEEP 08/30/24 12/05/24 History furosemide 20 mg tablet 20 mg PO DAILY PRN edema #90 tabs 10/17/24 12/05/24 Rx vitamin E (dl, acetate) 180 mg 180 mg PO QDAY SLEEP 10/17/24 12/05/24 History (400 unit) capsule alendronate 70 mg tablet 70 mg PO QWEEK OSTEOPOROSIS 11/23/24 12/05/24 History ibuprofen 200 mg tablet (Addaprin) 400 mg PO Q8H PRN pain 12/05/24 12/05/24 History metoprolol succinate 50 mg 50 mg PO DAILY BP 12/05/24 12/05/24 History tablet,extended release 24 hr polyethylene glycol 3350 17 17 g PO DAILY STOOL SOFTENER 12/05/24 12/05/24 History gram/dose oral powder (ClearLax) turmeric 400 mg capsule 400 mg PO PRN SUPPLEMENT 12/05/24 12/05/24 History PFSH Medical History Marijuana use Sleep apnea History of pain when walking Hypertension TIA (transient ischemic attack) Easy bruising Asthma Restless legs Shortness of breath on exertion Cardiology follow-up encounter History of echocardiogram Major depressive disorder Borderline personality disorder Seasonal allergies Post-menopausal Wears glasses Wears dentures 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 Depression Anxiety Alcohol use Ambulates with cane Fatty liver Back pain History of IBS Gastric reflux Former smoker Pulmonary hypertension CPAP (continuous positive airway pressure) dependence History of edema History of stress test H/O transesophageal echocardiography (ELAINE) for monitoring Normal Holter exam History of irregular heartbeat Premature ventricular contraction Premature atrial contraction ARLEN (obstructive sleep apnea) SVT (supraventricular tachycardia) Non-rheumatic mitral regurgitation Nonrheumatic mitral (valve) prolapse Tachycardia Osteoarthritis History of emotional problems Hematuria Surgical History History of esophagogastroduodenoscopy (EGD) History of surgery History of rotator cuff surgery History of cardiac catheterization Hx of arthroscopy of right knee (~2017) History of tonsillectomy (~2008) History of bladder surgery (~1972) Family History Mother Anxiety Arthritis Depression Mental disorder Osteoporosis Atrial fibrillationSister Breast cancer DiabetesBrother DiabetesFather CAD (coronary artery disease) History of coronary artery bypass surgery Atrial fibrillation Gallbladder cancer Diabetes Heart disease AlcoholismAunt Colon cancerOther Hypertension Melanoma Social History household members: spouse current occupational status: unemployed 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 Dexter Guerra MD 12/05/24 5010. Part of today?s visit was documented by Meryl Gage ATC, acting as scribe. RYANNE RENTERIA is a 59 year old F here today for pre-op lumbar spine for 360 lumbar fusion L4-5 with possible cement augmentation DOS 12/17/2024. Patient states the pain has gotten worse since her last visit. Patient states her psychiatrist is going to wean her off of her clonazepam and they are writing a letter for her. She hasn't received the letter yet but states she will bring it in once she has that. She takes clonazepam for anxiety. She is trying to get weaned off so that there is no interactions with pain medications after surgery. Patient denies any recent injections. She has been taking Fosamax for the last 3 weeks for her bone density. No diabetes. Takes baby aspirin after a TIA, no other blood thinners. HPI from 11/23/24: RYANNE RENTERIA is a 59 year old F here today for lumbar spine MRI review. Says that she has talked to the bone stimulator rep who put different programs in her bone stimulator and feels that that has helped. She will also start taking Fosamax for her osteoporosis per her PCP. HPI from 10/25/24: RYANNE RENTERIA is a 59 year old F here today for continued low back pain. She previously saw Dr. Hubbard and at the last appt. he reviewed her MRI and sent her for a dorsal column stimulator. She did end up getting the stimulator which was helping her and was helpful for about a year but within the last 6 months her pain has gotten worse. She is now switching back to Dr. Lopez for pain management and has an appt. with him in November. She states that injections only give her about 3 days of relief. She does have sciatic pain down her left leg intermittently but the majority of her pain is in her low back. She takes Advil for pain. Says that her walking distance has decreased over 6 months and can only walk between 1-2 blocks before needing to rest. History of bilateral lower extremity edema. Ortho Exam General General: Yes no acute distress Neurologic: Yes alert and Yes oriented x3 Spine SPINE TESTING CERVICAL THORACIC LUMBAR Musculoskeletal Strength 0=absent - 5=normal Details: Neurological exam of the lower extremities shows 5x5 power. Normal sensations across all dermatomes. No midline or paraspinal tenderness. Left knee brisk reflexes. Left buttock transverse incision from stimulator placement. Coding Level of Care Code Off vis,est,level 4 Diagnoses Spinal stenosis of lumbar region with neurogenic claudication M48.062 Spondylolisthesis, lumbar region M43.16 Osteopenia determined by x-ray M85.80 Time Spent (min) 35 Assessment and Plan Assessment and Plan (1) Spinal stenosis of lumbar region with neurogenic claudication: Status: Acute (2) Spondylolisthesis, lumbar region: Status: Acute (3) Osteopenia determined by x-ray: Status: Acute Plan Again reviewed prior imaging which shows L4 on L5 spondylolisthesis with moderate central canal stenosis. Instability on flexion/extension views. Again reviewed MRI from 11/08/24 which showed a moderate central & bilateral foraminal stenosis. Explained imaging findings in detail. She has developed unstable spondylolisthesis L4-5 and her previous MRI showed stenosis. She has worsening times of walking distance and her pain is now more into the lower extremities as well. Patient is here today to discuss L4-5 anterior and posterior fusion with indirect decompression, surgery scheduled for 12/17. Reviewed the benefits and risks of surgery. Risks of surgery include bleeding, infection, visceral injury, ileus, hardware failure, pseudoarthrosis, adjacent segment degeneration, pneumonia, DVT, pulmonary embolism, atelectasis, gait abnormality, persistent pain, stretch injuries, chance for future surgeries. Patient understands and agrees to proceed with surgery. Explained in detail the procedure of the lumbar fusion. Discussed post surgery restrictions such as no bending, lifting, or twisting. Answered all questions that she had today in preparation for surgery. Consent was signed. Patient is in agreement.
--- NOTE | 2024-12-17 12:45 | RAD_ITS ---
PROCEDURE: Fluoroscopy less than 1 hour REASON FOR EXAM: Lumbar fusion TECHNIQUE: 14 fluoroscopic images were submitted. Fluoroscopy time was 110 seconds. Peak skin radiation dose was 55.4 mGy. COMPARISON: None. FINDINGS: See impression RAD/Spine 1 View Any Level IMPRESSION: Anterior and posterior lumbar fusion at L4-L5. Vertebroplasty also performed a t L4 and L5. See operative report for further details. Reading Location: [facility]
[2024-12-17] MEDS: Cefazolin 2 GM in Syringe 10 ML IV ×2 (12:55→20:33)
[2024-12-17] MEDS: TRANEXAMIC ACID 1,000 MG in 0.9% Normal Saline (100mL Bag) 100 ML 440 MG IV ×2 (13:00→15:37)
[2024-12-17] MEDS: Ropivacaine 0.5% 30 ML Vial (15:59)
--- NOTE | 2024-12-17 16:06 | PCM.OPRPT ---
Procedures Musculoskeletal 20xxx-29xxx: Other Procedure See Report Operative Report (Standard) Operative Information Date of Procedure: 12/17/24 Pre-Operative Diagnosis: L4-5 spondylolisthesis, stenosis Post-Operative Diagnosis: Same Surgery/Procedure Performed: L4-5 oblique lumbar body fusion cigarette maker: Yes Cloth Folder Machine: Kierra Barkley Tasks completed by assistant winemaker: Closing, Removing tissue, Hemostasis: Electrocautery and Retracting Type of Anesthesia: General RN Documented Start/Stop Times: Operation Date: 12/17/24 11:25 Case Time Into Pre-Op 12/17/24 09:40 Out of Pre-Op 12/17/24 12:31 Anesthesia Start 12/17/24 12:37 Into Room 12/17/24 12:37 Procedure Start 12/17/24 13:11 Procedure Start Time: 13:11 Procedure Stop Time: 16:15 Select all DRAINS/GRAFTS/IMPLANTS that apply: Graft Graft details: Allograft: Cancellous bone chips, Medtronic infuse sponge and Implanted device Implanted device details: DePuy cougar lateral lumbar body cage?peek Estimated Blood Loss: 150 cc Specimen collected: No Description of surgery: Preoperative diagnosis: L4-5 spondylolisthesis, disc degeneration, stenosis with neurogenic claudication Postoperative diagnosis: Same Name of procedures L4-5 oblique lumbar interbody fusion (OLIF), minimally invasive left sided approach, lateral decubitus: ? L4-5 anterolateral spinal fusion 82406 ? L4-5 insertion of cage 31753 ? Allograft cancellous chips [id number] Attending Surgeon: Dr. Dexter Guerra Estimated blood loss: 150 mL Anesthesia: General Complications: None Indications: Patient is a 59-year-old pleasant lady who has had a long history of low back pain and lower extremity radiation, difficulty walking distances. Xrays & MRI revealed L4-5 spondylolisthesis with stenosis. After undergoing a prolonged period of nonoperative treatment, the patient elected to undergo surgical decompression & fusion. All surgical options were discussed with the patient including anterior and posterior approaches. All risks and benefits associated with the procedure were explained to the patient. The risks include but are not limited to infection, bleeding, injury to nerves and vessels including major vessels like IVC and aorta, persistent paresthesia, persistent pain, dural tear, need for further procedures, adjacent segment degeneration, pseudoarthrosis, hardware failure, retrograde ejaculation, paralytic ileus, etc. Procedure: The patient was identified in the preoperative holding suite using Unique patient identifiers. Skin was marked, consent was reviewed, and all questions were answered. The patient was then brought back to the operative room. A surgical timeout was performed to make sure correct procedure was being done on the correct patient and all operative room staff were on the same page. General endotracheal anesthesia was then given to the patient. Pedro catheter was inserted. The patient was then carefully positioned in right lateral decubitus position with the left side up on a regular OR table. Axillary roll was placed and all bony prominences were well- padded. Hip positioners were placed in the posterior buttocks and anterior sternal area. The surgical area was prepped and draped in usual fashion. Preoperative antibiotic was injected IV as preoperative antibiotic. A final timeout was then again done just before starting the procedure. A 2 inch incision oblique was taken in the left lower quadrant of the abdomen 2 fingerbreadths away from the iliac crest and the lower ribs. Sharp dissection with Bovie was carried out up to the fascia covering the external oblique. The external oblique, internal oblique and transversus abdominis muscles were split along the muscle fibers and retroperitoneal space was entered. Sponge sticks were utilized to move the bowel and peritoneum [id number]-way and psoas muscle was exposed staying within the retroperitoneal plane. [employer] Questframe retractor system was positioned and the retractor blade was applied onto the psoas. The interval between psoas and midline structures was developed and appropriate retractors were placed. Once adequate interval was cleared, a disc space was identified and a marker x-ray was taken. This identified the L4-5 disc level. The prepsoas interval was then traced inferiorly. Annulotomy was done with a long handled knife. Pituitary was used to remove disc material. Curettes were used to prepare the endplates. Disc space spreaders were utilized to distract and increase the disc height. Near complete discectomy was performed. Smaller disc distractors were also used to bluntly perform a contralateral annulotomy. Trials of serially increasing sizes were used. A Depuy [place] cage of size of the 18 x 45 x 12 mm with 15 degrees lordosis was packed with corticocancellous allograft bone chips with [employer] infuse extra small sponge. This was inserted into the L4-5 disc space. AP and lateral C-arm pictures were taken to confirm good position of the cage. Some bone chips were also packed around the cage. Screw with washer was placed into the lower L4 body with a washer partially covering the cage at L4-5. Hemostasis was confirmed. The retractor blades were removed. Closure was done in layers with a continuous strand of # 1 Vicryl in all muscle layers. 2-0 Vicryl was used for subcutaneous tissue and 4-0 for Monocryl for the skin. Steri-Strips were applied and 4 x 4 gauze and Tegaderm were applied. Traffic Officer Kierra Barkley PA-C. My physician industrial hire sales assistant was a vital part of this case. They were important in appropriate retraction during the case, and protection of soft tissues during the procedure. Their intimate knowledge of the case and my steps aided in safe and expedient completion of the procedure as well as appropriate position of the patient during the surgery. They were also vital in assisting with closure under my direct supervision. Surgical Findings: See operative note Complications Complications: No
--- NOTE | 2024-12-17 16:21 | PCM.OPRPT ---
Procedures Musculoskeletal 20xxx-29xxx: Other Procedure See Report Operative Report (Standard) Operative Information Date of Procedure: 12/17/24 Pre-Operative Diagnosis: L4-5 spondylolisthesis, stenosis Post-Operative Diagnosis: Same Surgery/Procedure Performed: L4-5 posterior instrumented spinal fusion sheet metal worker: Yes Well Digger: Kierra Barkley Tasks completed by first aid officer: Closing, Implanting device and Retracting Type of Anesthesia: General RN Documented Start/Stop Times: Operation Date: 12/17/24 11:25 Case Time Into Pre-Op 12/17/24 09:40 Out of Pre-Op 12/17/24 12:31 Anesthesia Start 12/17/24 12:37 Into Room 12/17/24 12:37 Procedure Start 12/17/24 13:11 Procedure Start Time: 13:11 Procedure Stop Time: 16:15 Select all DRAINS/GRAFTS/IMPLANTS that apply: Graft Graft details: Cortical cancellous allograft bone chips and Implanted device Implanted device details: [employer] Viper prime pedicle screw instrumentation Estimated Blood Loss: 150 cc Specimen collected: No Description of surgery: Preoperative diagnosis: L4-5 spondylolisthesis, disc degeneration, stenosis with neurogenic claudication Postoperative diagnosis: Same Name of procedures: L4-5 posterior percutaneous pedicle screw instrumented fusion, prone: ? L4-5 posterior spinal fusion 51478 ? L4-5 posterior pedicle screw instrumentation 47144 ? Allograft cancellous chips [id number] Attending Surgeon: Dr. Dexter Guerra Estimated blood loss: 150 mL (total for entire case) Anesthesia: General Complications: None Description of procedure: After the anterior procedure was complete, the patient was then turned supine. The patient was then transferred to Brendan table in prone position. Back was prepped and draped in usual fashion. C-arm AP view was then taken. C-arm was positioned in a way that L4 was centralized and superior endplate of was parallel to the beam. Spinous process was centered between the pedicles. Midline was marked with skin marker and lateral borders of the pedicles were also marked. Skin marker was also utilized to adrianna transversely across the middle of the pedicles at L4. 2 longitudinal paramedian incisions of 1 inch were placed. The fascia was incised vertically. Finger dissection was utilized to palpate the transverse process and facet joint. Viper Prime screws with towers were inserted and docked onto the transverse processes. This was then slowly moved medially to reach the superior articular process of L4. This was then confirmed on C-arm and then a mallet was utilized to drive the trocar into the pedicle going up to the medial wall of the pedicle on AP view. This was performed both sides. C-arm lateral view confirmed that the tip of the trocar was in the vertebral body, and the screw was advanced into the pedicle and vertebral body. This was repeated similarly at L5 bilaterally. Screw sizes were 7 x 45 mm at L4 and L5 on both sides. Due to osteopenia and reduced screw purchase, decision made to put cement through the cannula. Cement was placed into the cannulated fenestrated screws under C-arm guidance. 45 mm precontoured titanium 5.5 mm lordotic clemencia on both sides were then passed through the screw extensions and reduced down to the screws with the help of [employer] instrumentation system on both sides. AP and lateral view of the C-arm showed good positioning of the screws and cages. Final tightening with the torque screwdriver was then completed. Cutler was utilized to roughen the facet joint at L4-5 on the right side. Cancellous allograft bone chips mixed with bone marrow aspirate were then placed over this decorticated area. Patient spinal cord stimulator lead wires were encountered on the left paramedian incision in the subcutaneous space. One of the wires had some damage to the outer plastic sheath. Discussion with pain management physician was done intraoperatively to decide the best course of action. After this discussion, it was decided that the wires may be left alone and closed over it. Hemostasis was achieved. Closure was done in layers with 0 Vicryls for the fascia, 2-0 Vicryls for the subcutaneous tissue, and Monocryl for the skin. Dermabond was applied. Dressings were applied covered with Tegaderm. The patient was then turned supine onto a hospital bed. The patient was extubated and taken to PACU in stable condition. The patient tolerated the procedure well and no complications occurred. DepLootsie cage & Viper Prime minimally invasive pedicle screw instrumentation system was utilized in this case. No dural tear was identified intraoperatively. I was present for the entirety of the case and performed the surgery. Surgical Findings: See operative note Complications Complications: No
--- NOTE | 2024-12-17 16:24 | PCM.POST.ANE ---
Anesthesia: Postop Eval I Current Vital Signs Temperature: 96.8 F Pulse Rate: 75 Blood Pressure: 114/71 Respiratory Rate: 18 Pulse Ox: 95 Assessment Airway patent: Yes Spontaneous unlabored respirations: Yes nausea: No Vomiting: No Anesthesia Complication: No Fluid Hydration Crystalloid volume administer (ml): 1,800 Total IV fluid infused: 1,800 Progress Note Anesthesia document: Postop Eval 1 completed: Yes
--- NOTE | 2024-12-17 17:13 | POSTOPAN2_ITS ---
Anesthesia Postop Eval I Sum Postop Eval Completion status Anesthesia document: Postop Eval 1 completed: Yes Anesthesia Postop Eval I Summary Anesthesia Postop Eval I Summary: Anesthesia Postop Eval I: Assessment Summary Airway patent Yes 12/17/24 16:24 SENIOR PUBLICATIONS SPECIALIST.CSIR Spontaneous unlabored Yes 12/17/24 16:24 SENIOR PUBLICATIONS SPECIALIST.CSIR respirations Mental status nausea No 12/17/24 16:24 SENIOR PUBLICATIONS SPECIALIST.CSIR Vomiting No 12/17/24 16:24 SENIOR PUBLICATIONS SPECIALIST.CSIR Anesthesia Postop Eval I: Fluid Summary Crystalloid volume administer 1,800 12/17/24 16:24 SENIOR PUBLICATIONS SPECIALIST.CSIR (ml) Colloids volume administered ( ml) Blood Product volume administered (ml) Total IV fluid infused 1,800 12/17/24 16:24 SENIOR PUBLICATIONS SPECIALIST.CSIR Anesthesia Postop Eval I: Summary Notes Anesthesia Complication No 12/17/24 16:24 SENIOR PUBLICATIONS SPECIALIST.CSIR Anesthesia Complication Comment: Post-operative progress note Anesthesia: Postop Eval II Evaluation Mental status: Awake Pain Level: 4 nausea: No Vomiting: No
--- NOTE | 2024-12-17 17:13 | PCM.POSTANE2 ---
Anesthesia Postop Eval I Sum Postop Eval Completion status Anesthesia document: Postop Eval 1 completed: Yes Anesthesia Postop Eval I Summary Anesthesia Postop Eval I Summary: Anesthesia Postop Eval I: Assessment Summary Airway patent Yes 12/17/24 16:24 TELEPHONE WORKER.CSIR Spontaneous unlabored Yes 12/17/24 16:24 TELEPHONE WORKER.CSIR respirations Mental status nausea No 12/17/24 16:24 TELEPHONE WORKER.CSIR Vomiting No 12/17/24 16:24 TELEPHONE WORKER.CSIR Anesthesia Postop Eval I: Fluid Summary Crystalloid volume administer 1,800 12/17/24 16:24 TELEPHONE WORKER.CSIR (ml) Colloids volume administered ( ml) Blood Product volume administered (ml) Total IV fluid infused 1,800 12/17/24 16:24 TELEPHONE WORKER.CSIR Anesthesia Postop Eval I: Summary Notes Anesthesia Complication No 12/17/24 16:24 TELEPHONE WORKER.CSIR Anesthesia Complication Comment: Post-operative progress note Anesthesia: Postop Eval II Evaluation Mental status: Awake Pain Level: 4 nausea: No Vomiting: No
[2024-12-17] MEDS: Ketorolac 15 MG/ML Vial IV (17:36)
[2024-12-17] MEDS: Methocarbamol 500 MG Tablet 1000 MG PO ×2 (18:55→20:20)
[2024-12-17] MEDS: Atorvastatin Calcium 40 MG Tablet PO (20:19)
[2024-12-17] MEDS: Senna/Docusate Sodium 1 Tablet 2 TABLET PO (20:19)
[2024-12-17] MEDS: QUEtiapine 100 MG Tablet 500 MG PO (20:26)
[2024-12-17] MEDS: oxyCODONE 5 MG Tablet PO (20:26)
[2024-12-18] VITALS (11 sets, daily range): BP systolic 109–133; BP diastolic 65–76; PULSE 68–88; RESP 14–18; TEMP 36.3–37.1; O2SAT 95–100
[2024-12-18] MEDS: oxyCODONE 5 MG Tablet PO ×3 (02:53→21:15)
[2024-12-18] MEDS: Cefazolin 2 GM in Syringe 10 ML IV (04:58)
[2024-12-18] MEDS: Acetaminophen 500 MG Tablet 1000 MG PO ×3 (04:58→21:01)
[2024-12-18 06:53] LABS: Hematocrit 32.1 % (37-47); Hemoglobin 10.9 g/dL (12.0-15.0); Mean Corpuscular Hgb 32.1 pg (27.0-32.0); Mean Corpuscular Volume 94.4 fL (81-99); Mean Platelet Vol. 11.6 fl (6.2-12.0); Platelet Count 147 K/mm3 (150-450); RBC Distribution Width CV 12.3 % (11.6-14.6); RBC Distribution Width SD 42.3 fl (35.1-43.9); White Blood Count 10.9 K/mm3 (4.4-11.0)
--- NOTE | 2024-12-18 07:00 | RAD_ITS ---
PROCEDURE: LUMBAR SPINE 2 OR 3 VIEWS REASON FOR EXAM: Status post lumbar fusion. TECHNIQUE: Upright AP and lateral view(s) of the lumbar spine COMPARISON: Fluoroscopic images of the lumbar spine dated 12/17/2024. Additional prior examinations are currently unavailable. FINDINGS: 5 lumbar-type vertebral levels. Pedicle screws with intervertebral disc spacer device, consistent with posterior fusion. Additional screw traverses the inferior left lateral endplate of L4. Negative for hardware failure. There is underlying vertebral body cement seen within the L4 and L5 levels, with trace amounts of bone cement extending anterior to the L4 vertebral level measuring 1.1 cm, seen on the lateral view. Minimal retrolisthesis of L5 on S1. Lumbar vertebral body heights appear maintained. No acute fractures or dislocations are identified. There is mild intervertebral disc space height loss seen at the T12-L1 and L5-S1 levels. Anatomic alignment of the bilateral SI joints. Stimulator device overlies the left hemipelvis, with wires extending cephalad. Large amounts of fecal retention mostly within the right colon. RAD/Lumbar Spine 2 or 3 Views IMPRESSION: 1. Evidence of posterior fusion hardware involving the L4-5 level. Negative fo r hardware failure. 2. Bone cement seen within the L4 and L5 vertebral bodies, with trace amounts o f bone cement extending anterior to the L4 vertebral level measuring 1.1 cm, best appreciated on the lateral view. 3. No acute lumbar spine fractures or dislocations are identified. 4. Trace retrolisthesis of L5 on S1. Reading [facility]
[2024-12-18 07:06] LABS: Anion Gap 6 (5-15); BUN 15 mg/dL (7-18); BUN/Creat Ratio 20.4 RATIO (10-20); Calcium,Total 7.7 mg/dL (8.5-10.1); Chloride 109 mmol/L (98-107); Creatinine, Serum 0.74 mg/dL (0.55-1.02); EST Glomerular Filtration Rate 86 mL/min (>60); Est Glom Filt Rate - Afr Amer 104 mL/min (>60); Estimated Creatinine Clearance 89.16 ml/min; Glucose 143 mg/dL (74-106); Potassium 3.8 mmol/L (3.5-5.1); Sodium Level 138 mmol/L (136-145)
[2024-12-18] MEDS: Bisacodyl 5 MG Tablet 10 MG PO ×2 (09:29→16:33)
[2024-12-18] MEDS: Losartan Potassium 25 MG Tablet PO (09:47)
[2024-12-18] MEDS: lamoTRIgine 100 MG Tablet 400 MG PO (09:48)
[2024-12-18] MEDS: Pantoprazole Sodium 40 MG Tablet PO (09:49)
[2024-12-18] MEDS: Meloxicam 15 MG Tablet PO (09:49)
[2024-12-18] MEDS: Metoprolol(XL)Succ 50 MG Tablet PO (09:50)
[2024-12-18] MEDS: Senna/Docusate Sodium 1 Tablet 2 TABLET PO ×2 (09:50→19:50)
[2024-12-18] MEDS: Methocarbamol 500 MG Tablet 1000 MG PO ×4 (09:50→21:01)
--- NOTE | 2024-12-18 10:10 | PCM.PN.ORT ---
Subjective Subjective Patient is postop day 1 L4-5 fusion. She is doing well postoperatively with her pain well-managed. Says that her main pain is located over the left abdomen near the incision. Says that her pain prior to surgery has improved. She has been up to the bathroom with assistance. She has walked with therapy and is good from their end. She has not yet passed flatus. Patient says that a wrap for the spinal cord stimulator is coming to see her today. Seen with Dr. Guerra. Objective Data Objective Data Vital Signs: Vital Signs Temp Pulse Resp BP Pulse Ox O2 Del Method O2 Flow Rate 98.3 F 73 16 111/76 98 Room Air 1 12/18/24 08:20 12/18/24 09:50 12/18/24 08:20 12/18/24 09:50 12/18/24 08:20 12/18/24 08:34 12/18/24 00:25 Oxygen Flow Rate (L/min) 1 Oxygen Delivery Method Room Air Weight: 191 lb 12.835 oz Body Mass Index (BMI) 31.8 Intake & Output: Intake and Output for Last 24 Hours 12/16/24 12/17/24 12/18/24 23:59 23:59 23:59 Intake Total 1270.5 / 1270.5 638.25 / 638.25 Output Total 300 / 300 Balance 970.5 / 970.5 638.25 / 638.25 Lab / Micro Data 12/18/24 06:36 12/18/24 06:36 Labs: Laboratory Results - last 24 hr 12/17/24 10:13: POC Glucose 97 12/18/24 06:36: WBC 10.9, RBC 3.40 L, Hgb 10.9 L, Hct 32.1 L, MCV 94.4, MCH 32.1 H, MCHC 34.0, RDW Std Deviation 42.3, RDW Coeff of Bravo 12.3, Plt Count 147 L, MPV 11.6, Sodium 138, Potassium 3.8, Chloride 109 H, Carbon Dioxide 24.0, Anion Gap 6, BUN 15, Creatinine 0.74, Estim Creat Clear Calc 89.16, Est GFR (MDRD) Af Amer 104, Est GFR (MDRD) Non-Af 86, BUN/Creatinine Ratio 20.4 H, Glucose 143 H, Calcium 7.7 L Micro: Microbiology 12/05/24 15:46 Swab (Method) Nasal Screen MRSA/MSSA - Final Radiography Diagnostic Testing: Radiology Impression Spine X-Ray 12/17/24 12:45 IMPRESSION: Anterior and posterior lumbar fusion at L4-L5. Vertebroplasty also performed at L4 and L5. See operative report for further details. Reading Location: [facility] Lumbar Spine X-Ray 12/18/24 07:00 IMPRESSION: 1. Evidence of posterior fusion hardware involving the L4-5 level. Negative for hardware failure. 2. Bone cement seen within the L4 and L5 vertebral bodies, with trace amounts of bone cement extending anterior to the L4 vertebral level measuring 1.1 cm, best appreciated on the lateral view. 3. No acute lumbar spine fractures or dislocations are identified. 4. Trace retrolisthesis of L5 on S1. Reading Location: [facility] Physical Exam Narrative Neurological exam of the lower extremity shows 5X5 power. Normal sensation across all dermatomes. Physical examination of the back and belly shows dressings CDI. Const alert, oriented x3 and no apparent distress Assessment & Plan Assessment/Plan (1) Status post lumbar spinal fusion: PLAN: Plan Postop day 1 L4-5 fusion. X-rays done today look good. Pain has been well-managed, she has walked with physical therapy and is cleared from their end. She has not yet passed flatus, Dulcolax x 1 has been ordered. If by the afternoon she has not yet passed flatus another Dulcolax will be ordered. Then in the morning if still no flatus a suppository will be ordered. Recommend that the patient continue to move is much as possible today drink plenty of fluids to help promote passing gas. Spinal cord stimulator rep saw the patient today, she will not be able to get a new MRI at this time.
--- NOTE | 2024-12-18 11:40 | CASEMGMT ---
FLORIDALMA GASPAR Assessment: Face to Face with pt for initial transition planning/care coordination assessment. RN HUBERT introduced self and role at [facility], pt voices understanding and consents to assessment. Pt is A&O x4 and answers all questions appropriately at this time. Pt sitting up in bed in no distress. Care providers, pharmacy, and demographics verified/updated. Strata: 2 Admitting Dx: Lumbar fusion L4-5 PCP: Lewis Specialists: Davei, Pain Managment; Friend, Gastrologist; [facility]; Bri, Pulmonology Ketty Guerra Preferred [facility] Insurance: [facility] [place] Prescription Benefit: yes LNOK:, arnaldo Living Arrangements: Pt lives with in a 1 story home with 2 steps to enter. ADLs: Pt I with ADLs, gets assistance with cleaning but otherwise is pretty I. Transportation: Pt drives self and denies concerns with transportation. DME: CPAP, Rollator, Walker, Cane. HHC/SNF: Denies Hx of. Pt states no concerns with going home at time of dc. Pt states no further concerns/needs. Pt states will start PT after follow up appointment with Dr. Guerra. CM to follow. Advised pt to ask CM if any further question/concerns/needs arise, voices understanding. Pt Goal:Home Plan: Home with family support. Kizzy HEDRICK CM
[2024-12-18] MEDS: Ensure Surgery 237 ML LIQUID PO ×2 (11:44→17:35)
--- NOTE | 2024-12-18 20:18 | PCM.PN.HOSP ---
Reason for Visit Reason for Visit: Diagnoses Encounter for other preprocedural examination (12/17/24) Arthrodesis status (12/17/24) Subjective Subjective Patient was seen and examined today, she states she has not been passing flatus today, she denies any chest pain or shortness of breath. Objective Data Objective Data Vital Signs: Vital Signs Temp Pulse Resp BP Pulse Ox O2 Del Method O2 Flow Rate 98 F 83 16 113/65 96 Room Air 1 12/18/24 19:49 12/18/24 19:49 12/18/24 19:49 12/18/24 19:49 12/18/24 19:49 12/18/24 19:49 12/18/24 00:25 Oxygen Flow Rate (L/min) 1 Oxygen Delivery Method Room Air Weight: 87 kg Body Mass Index (BMI) 31.8 Intake & Output: Intake and Output for Last 24 Hours 12/16/24 12/17/24 12/18/24 23:59 23:59 23:59 Intake Total 1270.5 / 1270.5 638.25 / 638.25 Output Total 300 / 300 Balance 970.5 / 970.5 638.25 / 638.25 Lab / Micro Data 12/18/24 06:36 12/18/24 06:36 Labs: Laboratory Results - last 24 hr 12/18/24 06:36: WBC 10.9, RBC 3.40 L, Hgb 10.9 L, Hct 32.1 L, MCV 94.4, MCH 32.1 H, MCHC 34.0, RDW Std Deviation 42.3, RDW Coeff of Bravo 12.3, Plt Count 147 L, MPV 11.6, Sodium 138, Potassium 3.8, Chloride 109 H, Carbon Dioxide 24.0, Anion Gap 6, BUN 15, Creatinine 0.74, Estim Creat Clear Calc 89.16, Est GFR (MDRD) Af Amer 104, Est GFR (MDRD) Non-Af 86, BUN/Creatinine Ratio 20.4 H, Glucose 143 H, Calcium 7.7 L Micro: Microbiology 12/05/24 15:46 Swab (Method) Nasal Screen MRSA/MSSA - Final Radiography Diagnostic Testing: Radiology Impression Spine X-Ray 12/17/24 12:45 IMPRESSION: Anterior and posterior lumbar fusion at L4-L5. Vertebroplasty also performed at L4 and L5. See operative report for further details. Reading Location: [facility] Lumbar Spine X-Ray 12/18/24 07:00 IMPRESSION: 1. Evidence of posterior fusion hardware involving the L4-5 level. Negative for hardware failure. 2. Bone cement seen within the L4 and L5 vertebral bodies, with trace amounts of bone cement extending anterior to the L4 vertebral level measuring 1.1 cm, best appreciated on the lateral view. 3. No acute lumbar spine fractures or dislocations are identified. 4. Trace retrolisthesis of L5 on S1. Reading Location: [facility] Physical Exam Const alert, oriented x3 and no apparent distress General Appearance: cooperative, well kempt and well developed Orientation / Consciousness: awake, oriented to person, oriented to place and oriented to time HEENT normocephalic, head/scalp atraumatic and moist oral mucous membranes Eyes PERRL, EOMs intact bilaterally and conjunctivae normal Neck supple, no JVD, thyroid normal and no carotid bruits General: trachea midline Resp normal respiratory effort, no retractions, no use of accessory muscles and clear to auscultation bilaterally Auscultation: Negative for rales, rhonchi or wheezes Cardio regular rate, regular rhythm, S1 normal heart sound, S2 normal heart sound, no murmurs, no rub and no gallops GI normal to inspection, nondistended, normoactive bowel sounds, soft to palpation, non-tender and non-distended Extremity no clubbing, cyanosis or edema Skin no rashes or lesions noted General Skin Exam: no breakdown Neuro oriented x3, CN's II-XII intact bilaterally, moves all extremities, no focal motor deficits and no sensory deficits noted Sensorium / Orientation: awake and alert Speech: speech normal Psych affect normal Assessment & Plan Assessment/Plan (1) Status post lumbar spinal fusion: PLAN: Plan 1. Essential hypertension-patient remains on her home medications at this time, blood pressure will be monitored #2 hyperlipidemia-patient is on atorvastatin #3 chronic depression/anxiety-patient remains on her home medications #4 degenerative joint disease of the lumbar spine-status post L4-5 fusion-patient is being seen by PT and OT as well as spinal surgery Total clinical time spent by myself addressing the patient's medical issues, reviewing all of her data, and collaborating with patient's care team: 35 minutes Charges/Coding Visit Charges Inpatient E&M: 24303 Subs Hosp L2
[2024-12-18] MEDS: Atorvastatin Calcium 40 MG Tablet PO (21:02)
[2024-12-18] MEDS: QUEtiapine 100 MG Tablet 500 MG PO (21:02)
[2024-12-18] MEDS: Morphine 4 MG/ML Syringe IV (22:55)
[2024-12-19 03:54] VITALS: BP 101/68; PULSE 87; RESP 16; TEMP 36.6; O2SAT 94
[2024-12-19] MEDS: Acetaminophen 500 MG Tablet 1000 MG PO (06:09)
[2024-12-19 08:10] VITALS: BP 117/87; PULSE 83; RESP 18; TEMP 36.4; O2SAT 98
[2024-12-19] MEDS: Pantoprazole Sodium 40 MG Tablet PO (08:13)
[2024-12-19] MEDS: Losartan Potassium 25 MG Tablet PO (08:13)
[2024-12-19] MEDS: Meloxicam 15 MG Tablet PO (08:13)
[2024-12-19] MEDS: Methocarbamol 500 MG Tablet 1000 MG PO (08:13)
[2024-12-19] MEDS: lamoTRIgine 100 MG Tablet 400 MG PO (08:13)
[2024-12-19 08:14] VITALS: PULSE 83
[2024-12-19] MEDS: Senna/Docusate Sodium 1 Tablet 2 TABLET PO (08:14)
[2024-12-19] MEDS: Metoprolol(XL)Succ 50 MG Tablet PO (08:14)
[2024-12-19 08:25] VITALS: BP 122/84; PULSE 81; RESP 16; TEMP 36.8; O2SAT 100
[2024-12-19 08:28] VITALS: RESP 16; O2SAT 100
[2024-12-19 08:57] VITALS: O2SAT 96
--- NOTE | 2024-12-19 15:45 | PCM.PN.ORT ---
Subjective Subjective Patient ready for home dc. She has passed gas and tolerated a solid meal. Walked with PT, pain well managed. Objective Data Objective Data Vital Signs: Vital Signs Temp Pulse Resp BP Pulse Ox O2 Del Method O2 Flow Rate 98.3 F 81 16 122/84 H 96 Room Air 1 12/19/24 08:25 12/19/24 08:25 12/19/24 08:28 12/19/24 08:25 12/19/24 08:57 12/19/24 08:57 12/18/24 00:25 Oxygen Flow Rate (L/min) 1 Oxygen Delivery Method Room Air Weight: 191 lb 12.835 oz Body Mass Index (BMI) 31.8 Intake & Output: Intake and Output for Last 24 Hours 12/17/24 12/18/24 12/19/24 23:59 23:59 23:59 Intake Total 1270.5 / 1270.5 638.25 / 938.25 500 / 500 Output Total 300 / 300 Balance 970.5 / 970.5 638.25 / 938.25 500 / 500 Lab / Micro Data 12/18/24 06:36 12/18/24 06:36 Micro: Microbiology 12/05/24 15:46 Swab (Method) Nasal Screen MRSA/MSSA - Final Physical Exam Narrative Neurological exam of the lower extremity shows 5X5 power. Normal sensation across all dermatomes. Physical examination of the back and belly shows dressings CDI. Const alert, oriented x3 and no apparent distress Assessment & Plan Assessment/Plan (1) Status post lumbar spinal fusion: PLAN: Plan Home DC. Meds include oxycodone, acetaminophen, meloxicam, methocarbamol, senna. Reviewed restrictions of no bending, lifting, twisting. Follow up in office in 2 weeks.
--- NOTE | 2024-12-19 16:11 | NURSING ---
All documentation by vice president of nursing Darling Gómez reviewed by nursing care partner Agatha HAWKINSN, RN.
== END 2024-12-19 11:15 | disposition home or self-care (01) | DRG 402 ==
PROVIDERS: Anesthesiology; Student in an Organized Health Care Education/Training Program; Admitting Provider Orthopaedic Surgery Orthopaedic Surgery of the Spine; PCP Student in an Organized Health Care Education/Training Program; Referring Provider Orthopaedic Surgery Orthopaedic Surgery of the Spine; Visit Provider Orthopaedic Surgery Orthopaedic Surgery of the Spine
PROC: 0SG00A0 Fusion of Lumbar Vertebral Joint with Interbody Fusion Device, Anterior Approach, Anterior Column, Open Approach (ICD-10-PCS; principal; 2024-12-17 10:55)
DX: M48.062 Spinal stenosis, lumbar region with neurogenic claudication (principal); E78.5 Hyperlipidemia, unspecified; I10 Essential (primary) hypertension; F60.3 Borderline personality disorder; F41.9 Anxiety disorder, unspecified; M43.16 Spondylolisthesis, lumbar region; K21.9 Gastro-esophageal reflux disease without esophagitis; M19.90 Unspecified osteoarthritis, unspecified site; F10.90 Alcohol use, unspecified, uncomplicated; G47.33 Obstructive sleep apnea (adult) (pediatric); Z87.891 Personal history of nicotine dependence; Z79.82 Long term (current) use of aspirin; Z79.1 Long term (current) use of non-steroidal anti-inflammatories (NSAID); Z79.83 Long term (current) use of bisphosphonates; Z88.2 Allergy status to sulfonamides; Z91.048 Other nonmedicinal substance allergy status; Z88.8 Allergy status to other drugs, medicaments and biological substances; Z98.890 Other specified postprocedural states; M85.88 Other specified disorders of bone density and structure, other site; Z79.02 Long term (current) use of antithrombotics/antiplatelets; Z96.82 Presence of neurostimulator
CPT/HCPCS: 36415; 72020; 72100; 76000; 80048; 82962; 83735; 85025; 85027; 86703; 86706; 86708; 86803; 86850; 86900; 86901; 87081; 94668; 97116; 97162; 97166; 97530; 97535; C1713; J2405; J3475

== ENCOUNTER → 2025-01-21 | Outpatient (CLI) | payer MEDICARE, SELFPAY ==
[2025-01-21 10:13] LABS: Hematocrit 34.1 % (37-47); Hemoglobin 11.7 g/dL (12.0-15.0); Mean Corp Hgb Conc 34.3 g/dL (32-36); Mean Corpuscular Hgb 32.3 pg (27.0-32.0); Mean Corpuscular Volume 94.2 fL (81-99); Mean Platelet Vol. 12.6 fl (6.2-12.0); Platelet Count 139 K/mm3 (150-450); RBC Distribution Width CV 13.1 % (11.6-14.6); RBC Distribution Width SD 44.9 fl (35.1-43.9); Red Blood Count 3.62 M/mm3 (4.2-5.4); White Blood Count 5.4 K/mm3 (4.4-11.0)
[2025-01-21 10:49] LABS: Cholesterol 146 mg/dL (<=200); High Density Lipoprotein 51 mg/dL; Low Density Lipoprotein Calc. 75 mg/dL; Triglycerides 97 mg/dL; Very Low Density Lipoprotein 19 mg/dL (5-40); Vitamin D,25 Hydroxy 48.8 ng/mL (30-100); cholesterol:hdl ratio screen 2.84
[2025-01-21 11:19] LABS: Pro- Brain NATRIURETIC PEPTIDE 562 pg/mL (<=900)
[2025-01-21 11:47] LABS: Anion Gap 11 (5-15); Calcium,Total 8.8 mg/dL (7.6-11.0); Carbon Dioxide 23.8 mmol/L (21.0-32.0); Chloride 106 mmol/L (98-108); Creatinine, Serum 0.71 mg/dL (0.70-1.20); EST Glomerular Filtration Rate 97 (>60); Glucose 100 mg/dL (70-99); Potassium 4.3 mmol/L (3.3-5.1); Sodium Level 141 mmol/L (133-145)
[2025-01-21 13:59] LABS: BUN 15 mg/dL (4-19); BUN/Creat Ratio 20.8 RATIO (10-20); Iron 55 ug/dL (50-170)
== END | disposition home or self-care (01) ==
LOC: PAVLAB 09:37
PROVIDERS: PCP Student in an Organized Health Care Education/Training Program; Referring Provider Student in an Organized Health Care Education/Training Program; Visit Provider Student in an Organized Health Care Education/Training Program
DX: E78.2 Mixed hyperlipidemia (principal); R53.83 Other fatigue; R79.89 Other specified abnormal findings of blood chemistry; E55.9 Vitamin D deficiency, unspecified
CPT/HCPCS: 36415; 80048; 80061; 82306; 83540; 83880; 85027

== ENCOUNTER 2025-03-01 11:12 | Day surgery (SDC) | payer MEDICARE, SELFPAY ==
--- NOTE | 2025-02-28 14:36 | PAT.ANESEVAL ---
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 When Was Last Pacemaker Check QUESTION #4 FULL TEXT: You/Your Family Experience fever (hyperthermia) with Anesthesia Last Oral Intake Last Oral intake: Last Oral Intake NPO since Meds taken in AM with sips of water? 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 Female Yes 02/28/25 12:07 HX of Motion Sickness No 02/28/25 12:07 HX of N/V After Surgery No 02/28/25 12:07 Non-Smoker Yes 02/28/25 12:07 Duration of Surgery greater No 02/28/25 12:07 than 60 minutes Number of Risk Factors 2 02/28/25 12:07 PONV Score Moderate Risk 02/28/25 12:07 Height & Weight Height & Weight: Anesthesia: Height & Weight Height 5 ft 5 in 12/17/24 18:25 Respiratory Assessment Respiratory Assessment - assistant wrestling coach: Respiratory Tract Infection Hx - assistant wrestling coach Hx Respiratory Tract Infection No 02/28/25 12:07 STOP Sleep Apnea STOP Sleep Apnea - assistant wrestling coach: STOP Sleep Apnea - assistant wrestling coach Hx Hypertension Yes: CONTROLLED WITH MED 02/28/25 12:07 Hx Sleep Apnea Yes 02/28/25 12:07 CPAP Yes 02/28/25 12:07 BIPAP No 02/28/25 12:07 Do you snore loudly (louder than talking or can be heard Do you often feel tired/ fatigued/ sleepy during daytime? Has anyone observed you stop breathing during sleep? STOP Results Positive 02/28/25 12:07 QUESTION #5 FULL TEXT : Do you snore loudly (louder than talking or can be heard through closed doors)? 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 Specify any problems Hx of Preganancy in last 3 N/A 02/28/25 12:07 Months Nurse Filling Out Transfusion NBUCHER 02/28/25 12:07 & Questions: Date: 02/28/25 02/28/25 12:07 Time: 12:09 02/28/25 12:07 Patient unable to answer at this time (ie. 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 Depression Anxiety Alcohol use Ambulates with cane Fatty liver Back pain History of IBS Gastric reflux Former smoker Pulmonary hypertension CPAP (continuous positive airway pressure) dependence History of edema History of stress test H/O transesophageal echocardiography (ELAINE) for monitoring Normal Holter exam History of irregular heartbeat Premature ventricular contraction Premature atrial contraction ARLEN (obstructive sleep apnea) SVT (supraventricular tachycardia) Non-rheumatic mitral regurgitation Nonrheumatic mitral (valve) prolapse Tachycardia Osteoarthritis History of emotional problems Hematuria Home Medications ?Medication ?Instructions ?Recorded ?Last Taken ?Type magnesium oxide 400 mg PO DAILY SUPPLEMENT 01/27/21 12/16/24 07:00 History levocetirizine 5 mg tablet (Xyzal) 5 mg PO DAILY ALLERGIES 09/13/22 12/16/24 22:00 History losartan 25 mg tablet 25 mg PO DAILY BP 04/29/23 12/16/24 07:00 History pantoprazole 40 mg tablet,delayed 40 mg PO DAILY GERD #90 tabs 07/12/23 12/17/24 07:30 Rx release lamotrigine 200 mg tablet 400 mg PO DAILY ANXIETY 04/24/24 12/16/24 12:00 History (Lamictal) aspirin 81 mg chewable tablet 81 mg PO BREAKFAST BLOOD THINNER 07/29/24 12/16/24 07:00 Rx #30 tabs quetiapine 100 mg tablet 100 mg PO QHS SLEEP 08/30/24 Unknown History quetiapine 200 mg tablet 400 mg PO QHS SLEEP 08/30/24 Unknown History rosuvastatin 20 mg tablet 20 mg PO QHS SLEEP 08/30/24 Unknown History furosemide 20 mg tablet 20 mg PO DAILY PRN edema #90 tabs 10/17/24 12/16/24 07:00 Rx vitamin E (dl, acetate) 180 mg 180 mg PO QDAY SLEEP 10/17/24 12/16/24 07:00 History (400 unit) capsule alendronate 70 mg tablet 70 mg PO QWEEK OSTEOPOROSIS 11/23/24 Unknown History metoprolol succinate 50 mg 50 mg PO DAILY BP 12/05/24 12/17/24 07:30 History tablet,extended release 24 hr polyethylene glycol 3350 17 17 g PO DAILY STOOL SOFTENER 12/05/24 12/16/24 07:00 History gram/dose oral powder (ClearLax) turmeric 400 mg capsule 400 mg PO PRN SUPPLEMENT 12/05/24 12/15/24 History acetaminophen 500 mg tablet 500 mg PO Q6H #30 tabs 12/19/24 Unknown Rx ascorbate calcium (vitamin C) 500 500 mg PO QDAY 01/29/25 Unknown History mg tablet Allergy/AdvReac Type Severity Reaction Status Date / Time bethanechol (From Urecholine) Allergy Mild saliva Verified 02/28/25 12:05 adhesive tape Allergy rash Verified 02/28/25 12:05 Sulfa (Sulfonamide Allergy Rash Verified 02/28/25 12:05 Antibiotics) Family History Mother Anxiety Arthritis Depression Mental disorder Osteoporosis Atrial fibrillation Sister Breast cancer Diabetes Brother Diabetes Father CAD (coronary artery disease) History of coronary artery bypass surgery Atrial fibrillation Gallbladder cancer Diabetes Heart disease Alcoholism Aunt Colon cancer Other Hypertension Melanoma Surgical History (Updated 02/28/25 @ 12:07 by Diana Tena) History of lumbar fusion (12/17/24) History of esophagogastroduodenoscopy (EGD) History of surgery History of rotator cuff surgery History of cardiac catheterization Hx of arthroscopy of right knee (~2017) History of tonsillectomy (~2008) History of bladder surgery (~1971) Social History household members: spouse current occupational status: unemployed 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 Normal sinus rhythm. Stress test pertinent findings: April 21, 2021. Ejection fraction 85%. No areas of reversibility are noted to suggest ischemia. No previous infarct. Echo (EF%) pertinent findings: July 28, 2024. Ejection fraction 60%. No aortic stenosis. Heart catheterization pertinent findings: September 25, 2020. 1. Mild pulmonary hypertension. 2. Mildly elevated wedge pressure, elevate right ventricular end-diastolic pressure, and elevated right atrial pressure. Consult pertinent findings: August 30, 2024. Anny INGRAM. 1. Nonrheumatic mitral valve [id number] in July showed ejection fraction 60%. Appears stable today. Continue to monitor. 2. SVT?acute-event monitor for 20 days from July to August of 2024 showed average heart rate of 82 bpm. No significant tacky arrhythmias noted. Continue current beta-yong. 3. Obstructive sleep apnea-chronic?followed by pulmonary. 4. TIA?acute-event monitor in 2023 showed no atrial fibrillation. Continue to monitor may consider repeating event monitor. Additional pertinent findings: Holter monitor 09/14/2021. Sinus rhythm with PACs. Longest atrial run was 8 beats. No ventricular ectopy noted. Recommendation Anesthesia Recommendation Anesthesia recommendation: OPTIMIZED for anesthesia
[2025-03-01] VITALS (10 sets, daily range): BP systolic 102–122; BP diastolic 61–84; PULSE 74–86; RESP 16; TEMP 36.6–37.1; O2SAT 97–99; BMI 31.0
[2025-03-01] MEDS: Lactated Ringers 1,000 ML 15 ML IV (11:52)
--- NOTE | 2025-03-01 12:12 | PCM.PRE.AN2 ---
ASA Classification* ASA Classification ASA Classification: 3 Assessment & Plan Anesthesia* Anesthesia Assessment Anesthesia Assessment: Discussed sedation and/or anesthesia options, risks, benefits, and alternatives with patient/parents/legal guardian/POA. Questions invited. The patient/parents/legal guardian/POA seems to understand and agrees to proceed with anesthesia plan. Reviewed the physical assessment, medical history, allergy history and patient home medications list prior to surgery/procedure/anesthetic and documented any changes. Performed airway and anesthesia risk assessments. Anesthesia Type Anesthesia Type: General History Source History Obtained from:: Patient and Chart Anesthesia Focused Assessment* Temperature: 97.8 F Pulse Rate: 86 Blood Pressure: 122/84 Respiratory Rate: 16 Pulse Ox: 98 Oxygen Delivery Method: Room Air Airway Assessment Mouth opens: >3 cm Mallampati Score: III Teeth Condition: Dentures (Full top dentures will come out.) and Missing (Several missing teeth on the bottom. Rest are tight.) Neck Range of motion (ROM): Full ROM Focused Labs Anesthesia Preop lab: CBC WBC 5.4 K/mm3 (4.4-11.0) 01/21/25 09:45 01/21/25 RBC 3.62 M/mm3 (4.2-5.4) L 01/21/25 09:45 01/21/25 Hgb 11.7 g/dL (12.0-15.0) L 01/21/25 09:45 01/21/25 Hct 34.1 % (37-47) L 01/21/25 09:45 01/21/25 Plt Count 139 K/mm3 (150-450) L 01/21/25 09:45 01/21/25 CHEMISTRY Potassium 4.3 mmol/L (3.3-5.1) 01/21/25 09:45 01/21/25 Sodium 141 mmol/L (133-145) 01/21/25 09:45 01/21/25 Magnesium 2.2 mg/dL (1.6-2.6) 12/05/24 15:46 12/05/24 Phosphorus 3.9 mg/dL (2.5-4.9) 07/28/24 05:50 07/28/24 BUN 15 mg/dL (4-19) 01/21/25 09:45 01/21/25 Creatinine 0.71 mg/dL (0.70-1.20) 01/21/25 09:45 01/21/25 Glucose 100 mg/dL (70-99) H 01/21/25 09:45 01/21/25 POC Glucose 97 mg/dL (74-106) 12/17/24 10:13 12/17/24 TSH 3.660 uIU/mL (0.358-3.740) 07/28/24 05:50 07/28/24 COAG Pre-Assessment Diagnosis/Proposed Procedure Planned Operative Procedure(s): REMOVAL OF STIMULATOR Anesthesia History 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 When Was Last Pacemaker Check QUESTION #4 FULL TEXT: You/Your Family Experience fever (hyperthermia) with Anesthesia Last Oral Intake Last Oral intake: Last Oral Intake NPO since 20:00 03/01/25 11:42 Meds taken in AM with sips of Yes 03/01/25 11:42 water? 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 Female Yes 02/28/25 12:07 HX of Motion Sickness No 02/28/25 12:07 HX of N/V After Surgery No 02/28/25 12:07 Non-Smoker Yes 02/28/25 12:07 Duration of Surgery greater No 02/28/25 12:07 than 60 minutes Number of Risk Factors 2 02/28/25 12:07 PONV Score Moderate Risk 02/28/25 12:07 Height & Weight Height & Weight: Anesthesia: Height & Weight Height 5 ft 5 in 03/01/25 11:42 Weight: 84.6 kg 03/01/25 11:42 Body Mass Index (BMI) 31.0 03/01/25 11:42 Respiratory Assessment Respiratory Assessment - 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 Has anyone observed you stop breathing during sleep? STOP Results Positive 02/28/25 12:07 QUESTION #5 FULL TEXT : Do you snore loudly (louder than talking or can be heard through closed doors)? 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 Specify any problems Hx of Preganancy in last 3 N/A 02/28/25 12:07 Months Nurse Filling Out Transfusion NBUCHER 02/28/25 12:07 & Questions: Date: 02/28/25 02/28/25 12:07 Time: 12:09 02/28/25 12:07 Patient unable to answer at this time (ie. 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: /Reproductive Hx- brim pouncer machine operator Hx Now Gestational Age (in weeks): EDC: Hx Hx Para Hx Section SAB No 02/28/25 12:07 Active Medications Active Medications: Current Medications Generic Name Dose Route Start Last Admin Trade Name Shahnaz PRN Reason Stop Dose Admin Lactated Ringer's 1,000 mls @ 15 mls/hr 03/01/25 11:30 03/01/25 11:52 IV 15 mls/hr .Q48H JUNITO Administration PFSH Medical History Marijuana use Sleep apnea History of pain when walking Hypertension TIA (transient ischemic attack) Easy bruising Asthma Restless legs Shortness of breath on exertion Cardiology follow-up encounter History of echocardiogram Major depressive disorder Borderline personality disorder Seasonal allergies Post-menopausal Wears glasses Wears dentures 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 Depression Anxiety Alcohol use Ambulates with cane Fatty liver Back pain History of IBS Gastric reflux Former smoker Pulmonary hypertension CPAP (continuous positive airway pressure) dependence History of edema History of stress test H/O transesophageal echocardiography (ELAINE) for monitoring Normal Holter exam History of irregular heartbeat Premature ventricular contraction Premature atrial contraction ARLEN (obstructive sleep apnea) SVT (supraventricular tachycardia) Non-rheumatic mitral regurgitation Nonrheumatic mitral (valve) prolapse Tachycardia Osteoarthritis History of emotional problems Hematuria Home Medications ?Medication ?Instructions ?Recorded ?Last Taken ?Type magnesium oxide 400 mg PO DAILY SUPPLEMENT 01/27/21 12/16/24 07:00 History levocetirizine 5 mg tablet (Xyzal) 5 mg PO DAILY ALLERGIES 09/13/22 12/16/24 22:00 History losartan 25 mg tablet 25 mg PO DAILY BP 04/29/23 03/01/25 08:45 History pantoprazole 40 mg tablet,delayed 40 mg PO DAILY GERD #90 tabs 07/12/23 12/17/24 07:30 Rx release lamotrigine 200 mg tablet 400 mg PO DAILY ANXIETY 04/24/24 03/01/25 08:45 History (Lamictal) aspirin 81 mg chewable tablet 81 mg PO BREAKFAST BLOOD THINNER 07/29/24 02/28/25 Rx #30 tabs quetiapine 100 mg tablet 100 mg PO QHS SLEEP 08/30/24 Unknown History quetiapine 200 mg tablet 400 mg PO QHS SLEEP 08/30/24 Unknown History rosuvastatin 20 mg tablet 20 mg PO QHS SLEEP 08/30/24 Unknown History furosemide 20 mg tablet 20 mg PO DAILY PRN edema #90 tabs 10/17/24 12/16/24 07:00 Rx vitamin E (dl, acetate) 180 mg 180 mg PO QDAY SLEEP 10/17/24 12/16/24 07:00 History (400 unit) capsule alendronate 70 mg tablet 70 mg PO QWEEK OSTEOPOROSIS 11/23/24 Unknown History metoprolol succinate 50 mg 50 mg PO DAILY BP 12/05/24 03/01/25 08:45 History tablet,extended release 24 hr polyethylene glycol 3350 17 17 g PO DAILY STOOL SOFTENER 12/05/24 12/16/24 07:00 History gram/dose oral powder (ClearLax) turmeric 400 mg capsule 400 mg PO PRN SUPPLEMENT 12/05/24 12/15/24 History acetaminophen 500 mg tablet 500 mg PO Q6H #30 tabs 12/19/24 Unknown Rx ascorbate calcium (vitamin C) 500 500 mg PO QDAY 01/29/25 Unknown History mg tablet Allergy/AdvReac Type Severity Reaction Status Date / Time bethanechol (From Urecholine) Allergy Mild saliva Verified 03/01/25 11:41 adhesive tape Allergy rash Verified 03/01/25 11:41 Sulfa (Sulfonamide Allergy Rash Verified 03/01/25 11:41 Antibiotics) Family History Mother Anxiety Arthritis Depression Mental disorder Osteoporosis Atrial fibrillation Sister Breast cancer Diabetes Brother Diabetes Father CAD (coronary artery disease) History of coronary artery bypass surgery Atrial fibrillation Gallbladder cancer Diabetes Heart disease Alcoholism Aunt Colon cancer Other Hypertension Melanoma Surgical History History of lumbar fusion (12/17/24) History of esophagogastroduodenoscopy (EGD) History of surgery History of rotator cuff surgery History of cardiac catheterization Hx of arthroscopy of right knee (~2017) History of tonsillectomy (~2008) History of bladder surgery (~1971) Social History household members: spouse current occupational status: unemployed 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 Physical Exam Resp normal air movement and clear to auscultation bilaterally
--- NOTE | 2025-03-01 12:45 | FORE_PTH ---
PATIENT: RYANNE RENTERIA [place] [facility] [id number] AGE/SX: 60/F ROOM: RE03/01/[address]: Dr. Barbara Schaffer MD : 1965 BED: DIS: 03/01/2025 SPEC #: [id number] RECD: 03/01/25 13:35 STATUS: EBEN REQ #: [id number] ALY: 03/01/25 12:[address]: Barbara Schaffer DEPT: SURGICAL PATHOLOGY RECD BY: Steve Montiel ENTERED: 03/01/25 13:45 SP TYPE: FOREIGN B OTHR DR: Dr. Agapito Saucedo, DO Tissues: A - FOREIGN BODY Procedures: Surgery Specimen Level I HEADER OPERATION: Removal spinal cord stimulator PRE-OP DIAGNOSIS: Damaged lead spinal stimulator, back surgery TISSUE SUBMITTED: A- Explanted spinal stimulator MICROSCOPIC DIAGNOSIS A. Spinal stimulator, damaged lead, explant: * rotary engraver confirmed (gross examination only). MICROSCOPIC DESCRIPTION Slides are reviewed. GROSS DESCRIPTION A. Received fresh in a container labeled with the patient's name, date of , and explanted spinal stimulator is a 48.3 g irregular silver metal and white plastic device measuring 5.5 x 4.8 x 1.2 cm. One side displays the inscription, [employer] 3660 S/N [id number] and the opposing side displays the inscription, [id number]. Received in the same container are 2 silver wires each measuring 62 cm in length by 0.2 cm in diameter. There are 2 irregular clear plastic cylinders measuring 4 x 0.4 cm and 3 x 0.4 cm. No inscriptions are identified. No soft tissue is received; no sections are submitted for microscopic evaluation, GROSS ONLY. [facility] 03/01/2025 CPT:23425
[2025-03-01] MEDS: Cefazolin 2 GM in Syringe IV (12:47)
[2025-03-01] MEDS: Bupiv/Epi 0.25% 30 ML Vial (12:52)
[2025-03-01] MEDS: Lidocaine 0.5% (50 ml) 50 ML Vial (12:52)
--- NOTE | 2025-03-01 13:28 | PCM.POST.ANE ---
Anesthesia: Postop Eval I Current Vital Signs Temperature: 98.4 F Pulse Rate: 82 Blood Pressure: 102/61 Respiratory Rate: 16 Pulse Ox: 97 Oxygen Delivery Method: Room Air Assessment Airway patent: Yes Spontaneous unlabored respirations: Yes Mental status: Awake and Calm nausea: No Vomiting: No Anesthesia Complication: No Fluid Hydration Crystalloid volume administer (ml): 800 Total IV fluid infused: 800 Progress Note Anesthesia document: Postop Eval 1 completed: Yes
--- NOTE | 2025-03-01 13:34 | POSTOPAN2_ITS ---
Anesthesia Postop Eval I Sum Postop Eval Completion status Anesthesia document: Postop Eval 1 completed: Yes Anesthesia Postop Eval I Summary Anesthesia Postop Eval I Summary: Anesthesia Postop Eval I: Assessment Summary Airway patent Yes 03/01/25 13:28 HOST/HOSTESS GROUND.NFOR Spontaneous unlabored Yes 03/01/25 13:28 HOST/HOSTESS GROUND.NFOR respirations Mental status Awake,Calm 03/01/25 13:28 HOST/HOSTESS GROUND.NFOR nausea No 03/01/25 13:28 HOST/HOSTESS GROUND.NFOR Vomiting No 03/01/25 13:28 HOST/HOSTESS GROUND.NFOR Anesthesia Postop Eval I: Fluid Summary Crystalloid volume administer 800 03/01/25 13:28 HOST/HOSTESS GROUND.NFOR (ml) Colloids volume administered ( ml) Blood Product volume administered (ml) Total IV fluid infused 800 03/01/25 13:28 HOST/HOSTESS GROUND.NFOR Anesthesia Postop Eval I: Summary Notes Anesthesia Complication No 03/01/25 13:28 HOST/HOSTESS GROUND.NFOR Anesthesia Complication Comment: Post-operative progress note Anesthesia: Postop Eval II Evaluation Mental status: Awake and Calm Pain Level: 5 (baseline per patient) nausea: No Vomiting: No Complications Anesthesia Complication: No
--- NOTE | 2025-03-01 13:34 | PCM.POSTANE2 ---
Anesthesia Postop Eval I Sum Postop Eval Completion status Anesthesia document: Postop Eval 1 completed: Yes Anesthesia Postop Eval I Summary Anesthesia Postop Eval I Summary: Anesthesia Postop Eval I: Assessment Summary Airway patent Yes 03/01/25 13:28 GL ACCOUNTANT.NFOR Spontaneous unlabored Yes 03/01/25 13:28 GL ACCOUNTANT.NFOR respirations Mental status Awake,Calm 03/01/25 13:28 GL ACCOUNTANT.NFOR nausea No 03/01/25 13:28 GL ACCOUNTANT.NFOR Vomiting No 03/01/25 13:28 GL ACCOUNTANT.NFOR Anesthesia Postop Eval I: Fluid Summary Crystalloid volume administer 800 03/01/25 13:28 GL ACCOUNTANT.NFOR (ml) Colloids volume administered ( ml) Blood Product volume administered (ml) Total IV fluid infused 800 03/01/25 13:28 GL ACCOUNTANT.NFOR Anesthesia Postop Eval I: Summary Notes Anesthesia Complication No 03/01/25 13:28 GL ACCOUNTANT.NFOR Anesthesia Complication Comment: Post-operative progress note Anesthesia: Postop Eval II Evaluation Mental status: Awake and Calm Pain Level: 5 (baseline per patient) nausea: No Vomiting: No Complications Anesthesia Complication: No
== END 2025-03-01 14:29 | disposition home or self-care (01) ==
LOC: SDC 11:12 → AC 11:14
PROVIDERS: PCP Student in an Organized Health Care Education/Training Program; Referring Provider Anesthesiology Pain Medicine; Visit Provider Anesthesiology Pain Medicine
PROC: (CPT 63688; principal; 2025-03-01 12:30)
DX: Z45.42 Encounter for adjustment and management of neurostimulator (principal); M96.1 Postlaminectomy syndrome, not elsewhere classified; T84.31 Breakdown (mechanical) of other bone devices, implants and grafts; Y79.2 Prosthetic and other implants, materials and accessory orthopedic devices associated with adverse incidents; I10 Essential (primary) hypertension; Z79.899 Other long term (current) drug therapy; Z87.891 Personal history of nicotine dependence; J45.909 Unspecified asthma, uncomplicated; K21.9 Gastro-esophageal reflux disease without esophagitis; Z79.82 Long term (current) use of aspirin
CPT/HCPCS: 63662; 63688; 00300; 76000; 88300; J2405

== ENCOUNTER 2025-04-08 10:30 | Outpatient (RCR) | payer MEDICARE, SELFPAY ==
--- NOTE | 2025-01-07 19:08 | HP.PTEVAL ---
Patient's Visit Information Visit Information Visit Information: RYANNE RENTERIA is a 60 year old F referred to Physical Therapy by Dr. Dexter David MD with a diagnosis of S/P LUMBAR FUSION 12/17/24. Date of Evaluation: 01/07/25 Physical Therapist: Viki Solano, PT, Cert MDT Visit Plan Frequency: 2x /Week Duration: 4-6 Weeks Plan: NO BENDING, LIFTING > 8 LBS OR TWISTING. ALSO NO OVER-HEAD REACHING UNTIL 3 MONTHS POST OP. LAND AND/OR AQUATIC THERAPY FOR PAIN RELIEF, POSTURE CORRECTION/STRENGTHENING, INSTRUCTION IN APPROPRIATE BODY MECHANICS AND ACTIVITY MODIFICATIONS. DLS STARTING WITH NEUTRAL SPINE ONLY. LATISHA LE ROM, STRETCHING AND STRENGTHENING. HEP INSTRUCTION. Subjective Subjective: Work/Leisure: UNEMPLOYEED. Disability: YES SINCE 2017 FOR BACK CONDITION AND MENTAL HEALTH ISSUES. Present symptoms: LOW BACK PAIN. LEG WEAKNESS L>R. PATIENT DENIES LATISHA LE PAIN, NUMBNESS AND TINGLING. Present since: CHRONIC BACK PAIN Pain Scale: WORST 6/10, LEAST 2/10 Currently: 5/10 Is it getting better, worse or staying the same: GETTING BETTER EVERY DAY Commenced as a result of: NO APPARENT REASON Worse: PROLONGED STANDING, PROLONGED SITTING, TOO MUCH WALKING. Better: ICE, TYLONOL, IBUPROFEN Disturbed sleep: NO - TAKES SLEEP MEDICATION Previous history/Previous treatment: NO PRIOR BACK SURGERIES. SPINE STIMULATOR - NEEDS TO HAVE A LEAD FIXED. H/O PO'S AND PT. Treatment this episode: LUMBAR FUSION 12/17/24 Gait: INDEP GAIT WITHOUT AD. 2 STEPS INTO HOUSE FROM GARAGE WITHOUT HR AND MANAGING RECIP OK CURRENTLY UP AND DOWN. Bowel or Bladder Dysfunction: NO Accidents: NO Unexplained weight loss: NO Imaging: IMAGING AFTER SX LOOKS GOOD PER PATIENT REPORT PMH/Recent major surgery: OSTEOPOROSIS. HEART VALVE LEAK. PULMONARY HYPERTENSION. MITRAL VALVE PROLAPSE. SLEEP APNEA. TIA AUG 2024. L SHLD SURGERY. R ARTHROSCOPIC KNEE SX. ANXIETY. DEPRESSION. BIPOLAR. OTHER: USING [employer] AND [employer] PRIOR TO SURGERY. SENT DR. DAVID A MESSAGE TO SEE WHEN SHE CAN GET BACK IN POOL AND AWAITING RESPONSE. Objective Objective: Sitting/Standing Posture: INCREASED KYPHOSIS. REDUCED LORDOSIS. Active Correction of posture: INCREASES PAIN. ABLE TO PARTIALLY CORRECT. DOES NOT MAINTAIN. Other Observations: INDEP GAIT INTO PT WITHOUT ANY AD'S WITH SLOW CADANCE, SHORT LATISHA STRIDE LENGTH AND NO LOB. MILD INCREASED TRUNK FLEXION. MILD LIMP ON LLE. Sensory deficit: LATISHA LE LIGHT TOUCH SENSATION GROSSLY INTACT AND SYMMETRICAL ROM deficit: MILD LATISHA HS AND CALF TIGHTNESS. Motor deficit: LATISHA LE WEAKNESS L>R. R HIP 4/5, KNEE 5/5, ANKLE 5/5. L HIP 4-/5, KNEE 5/5, ANKLE 5/5. Reflexes: UNABLE TO ELICIT LATISHA LE DTR'S. Dural Signs: NEGATIVE LATISHA LE'S Lumbar mvmt loss: NT Core strength: POOR Palpation: NO ACUTE LUMBAR OR HIP TENDERNESS WITH PALPATION. L HIP AND LATISHA LUMBAR INCISIONS ARE WELL HEALED WITHOUT ANY OPEN AREAS OR SIGNS OF INFECTION. TUG TIME: 17.38 WITHOUT AD 30 STS TEST: 5 - FIRST 2 WITH HANDS ON KNEES THEN 3 WITH HANDS ON CHAIR DUE TO PATIENT NEEDING HELP CONTROLLING STAND TO SIT. Balance/Special Test Scores Oswestry Low Back Score: 29 Goals Goal 1:: DECREASE C/O LOW BACK PAIN BY AT LEAST 50% TO EASE ADL'S Goal Time Frame: 6-8 Weeks Goal 2:: PATIENT WILL COMPLETE 8 STANDS IN 30 SECS WITH HANDS ON KNEES TO DEMONSTRATE IMPROVED FUNCTIONAL STRENGTH Goal Time Frame: 6-8 Weeks Goal 3:: PATIENT WILL COMPLETE TUG IN < 12 SECS TO DEMONSTRATE IMPROVED GAIT STABILITY Goal Time Frame: 4-6 Weeks Goal 4:: PATIENT WILL BE ABLE TO WALK FOR AT LEAST 10 MINUTES WITHOUT AD AND WITHOUT AGGREVATION OF SYMPTOMS IN ORDER TO PERFORM ADL'S AND IADL'S MORE EASILY. Goal Time Frame: 6-8 Weeks Goal 5:: PATIENT WILL BE INDEP WITH A HEP FOR CONTINUED IMPROVEMENT ONCE FORMAL PHYSICAL THERAPY CONCLUDES. Goal Time Frame: 6-8 Weeks Rehabilitation Potential Physical Therapy Diagnosis: CORE WEAKNESS, LE WEAKNESS AND STIFFNESS, DIFFICULTY WITH GAIT. Anticipated Interventions Patient/Client Instruction: Educate patient on: Condition, Plan of Care and Risk Factors For the Purpose of:: To improve self management Therapeutic Exercise to Include: Strength training, Body mechanics, Postural training, Flexibilty training, Gait and locomotor training, Neuromotor development, In an aquatic setting and Dynamic Lumbar Stabilization For the Purpose of:: To decrease pain, To improve muscle performance and motor function, To increase tolerance to activity/condition/position, To improve ability of physical actions for home/community/work/leisure, To improve gait and locomotor functions, To increase flexibility/ROM and To improve self management Text: Thank you for the opportunity to evaluate your patient. For Medicare and Medicare HMO plans, please review the plan of care and approve it. It will need to be FAXED BACK to us at [phone] for Medicare purposes. For Medicare only, by signing this I certify the plan of care. Please let me know if there are questions or concerns regarding this plan of care. Physician Signature: Date:
--- NOTE | 2025-02-14 13:55 | HP.PTREVAL_ITS ---
Re-Evaluation Intro: Dr. Dexter Guerra MD, It has been my pleasure to treat RYANNE RENTERIA over the last 12 visits for S/P LUMBAR FUSION 12/17/24. Please see the progress note below for an update on the physical therapy plan of care! Subjective Subjective: PATIENT REPORTS SHE IS DOING BETTER. SHE HAS PLANS TO SEE DR. BAR IN ABOUT 2 WKS TO SCHEDULE REPAIR OF HER SPINAL CORD STIMULATOR LEADS THAT WERE DAMAGED DURING SURGERY (APPARENTLY ORIGINALLY IT WAS GOING TO BE DONE BY DR. MEDINA). SHE REPORTS SHE IS GETTING STRONGER AND HAVING LESS PAIN. NOT TAKING PRESCRIPTION PAIN MEDICATION AND TAKING OTC MEDS NEEDED FOR PAIN. REPORTS DOING HER HEP AND PREFERS TO CONTINUE WATER EX SHE HAS SILVER SNEAKERS TO CONTINUE WATER EX WITH POST PT. DENIES LE PAIN, NUMBNESS AND TINGLING. HAD FOLLOW UP WITH SURGEONS PA 01/29/25 AND X-RAYS LOOKED GOOD PER PATIENT REPORT. NOW ABLE TO LIFT UP TO 16 LBS BUT STILL TO AVOID BENDING AND TWISTING. FOLLOW UP PENDING APPROX 03/12/25 AT 3 MONTH PO. Objective Objective/Function: PATIENT WAS SEEN TODAY FOR RE-ASSESSMENT OF PROGRESS TOWARD THE SET PT GOALS AND THE NEED FOR FURTHER PHYSICAL THERAPY VS READINESS FOR DISCHARGE. THIS PATIENT IS MAKING GREAT PROGRESS WITH PT BUT SHE IS STILL ON POST SURGICAL RESTRICTIONS AND NEEDS SKILLED CARE TO PROGRESS CORE AND STRENGTHENING SAFELY. WOULD RECOMMEND CONTINUED PT UNTIL UPCOMING PROCEDURE TO REPAIR SPINAL CORD STIMULATOR FOR PATIENT TO GO INTO PROCEDURE WITH MUCH STRENGTH POSSIBLE AND TO CONTINUE TO BUILD AND GET COMFORTABLE WITH HOME EX PROGRAM. UPON EXAM TODAY: Reflexes: UNABLE TO ELICIT LATISHA LE DTR'S. Dural Signs: NEGATIVE LATISHA LE'S Lumbar mvmt loss: NT Core strength: FAIR Palpation: NO ACUTE LUMBAR OR HIP TENDERNESS WITH PALPATION. L HIP AND LATISHA LUMBAR INCISIONS ARE WELL HEALED WITHOUT ANY OPEN AREAS OR SIGNS OF INFECTION. TUG TIME: 9.76 INDEP WITHOUT AD 30 STS TEST: 10 - INDEP WITHOUT UE ASSIST. Plan Plan Plan: CONTINUE AQUATIC THERAPY 2X'S A WK X 4 WKS: NO BENDING, LIFTING > 16 LBS OR TWISTING. ALSO NO OVER-HEAD REACHING UNTIL 3 MONTHS POST OP. POSTURE CORRECTION/STRENGTHENING, INSTRUCTION IN APPROPRIATE BODY MECHANICS AND ACTIVITY MODIFICATIONS. DLS STARTING WITH NEUTRAL SPINE ONLY. LATISHA LE ROM, STRETCHING AND STRENGTHENING. HEP PROGRESSION. Balance/Gait/Functional tests Balance/Special Test Scores Oswestry Low Back Score: 21 Goals Goals Goal 1:: DECREASE C/O LOW BACK PAIN BY AT LEAST 50% TO EASE ADL'S Goal Time Frame: 6-8 Weeks Goal Progress: Goal Met Goal 2:: PATIENT WILL COMPLETE 8 STANDS IN 30 SECS WITH HANDS ON KNEES TO DEMONSTRATE IMPROVED FUNCTIONAL STRENGTH Goal Time Frame: 6-8 Weeks Goal 3:: PATIENT WILL COMPLETE TUG IN < 12 SECS TO DEMONSTRATE IMPROVED GAIT STABILITY Goal Time Frame: 4-6 Weeks Goal 4:: PATIENT WILL BE ABLE TO WALK FOR AT LEAST 10 MINUTES WITHOUT AD AND WITHOUT AGGREVATION OF SYMPTOMS IN ORDER TO PERFORM ADL'S AND IADL'S MORE EASILY. Goal Time Frame: 6-8 Weeks Goal 5:: PATIENT WILL BE INDEP WITH A HEP FOR CONTINUED IMPROVEMENT ONCE FORMAL PHYSICAL THERAPY CONCLUDES. Goal Time Frame: 6-8 Weeks Anticipated Interventions Anticipated Interventions Patient/Client Instruction: Educate patient on: Condition, Plan of Care and Risk Factors For the Purpose of:: To improve self management Therapeutic Exercise to Include: Strength training, Body mechanics, Postural training, Flexibilty training, Gait and locomotor training, Neuromotor develo pment, In an aquatic setting and Dynamic Lumbar Stabilization For the Purpose of:: To decrease pain, To improve muscle performance and motor function, To increase tolerance to activity/condition/position, To improve ability of physical actions for home/community/work/leisure, To improve gait and locomotor functions, To increase flexibility/ROM and To improve self management Re-Evaluation Ending Re-evaluation ending: Please do not hesitate to contact me at [phone] by phone or if you have questions or concerns regarding this new plan of care! Sincerely, Viki Solano, PT, Cert MDT
--- NOTE | 2025-03-26 08:43 | HP.PTREVAL_ITS ---
Re-Evaluation Intro: Dr. Dexter Guerra MD, It has been my pleasure to treat RYANNE RENTERIA over the last 17 visits for S/P LUMBAR FUSION 12/17/24. Please see the progress note below for an update on the physical therapy plan of care! Subjective Subjective: Pt had her spinal stimulator taken out about 1 month ago. She reports that she is off her restrictions and said she is ok to go back in the water because all is healed. Her back pain is better. If she bends over she has pain because she was not able to go that for so long. Sometimes she will still get a hurt in the center of her back. She feels that she is getting stronger and she tried to not do PT again but she feels that she still needs it. Objective Objective/Function: Sit to stand X 8 of them with hands on thighs in 20 seconds. TUG 7.8 seconds Plan Plan Plan: *Lat band walks *Lunges *SQUATS ON LAST VISIT PLEASE GIVE OSWESTRY (Back) and let know last visit was compl eted and pt has compete AT routine for indep. CONTINUE AQUATIC THERAPY 2X'S A WK X 2 additional weeks to give indep AT program for POSTURE CORRECTION/STRENGTHENING, INSTRUCTION IN APPROPRIATE BODY MECHANICS AND ACTIVITY MODIFICATIONS. DLS, LATISHA LE ROM, STRETCHING AND STRENGTHENING of L spine and LE's as she is more than 12 weeks post op. Balance/Gait/Functional tests Balance/Special Test Scores Oswestry Low Back Score: 14 Goals Goals Goal 1:: DECREASE C/O LOW BACK PAIN BY AT LEAST 50% TO EASE ADL'S Goal Time Frame: 6-8 Weeks Goal Progress: Goal Met Goal 2:: PATIENT WILL COMPLETE 8 STANDS IN 30 SECS WITH HANDS ON KNEES TO DEMONSTRATE IMPROVED FUNCTIONAL STRENGTH Goal Time Frame: 6-8 Weeks Goal Progress: Goal Met Goal 3:: PATIENT WILL COMPLETE TUG IN < 12 SECS TO DEMONSTRATE IMPROVED GAIT STABILITY Goal Time Frame: 4-6 Weeks Goal Progress: Goal Met Goal 4:: PATIENT WILL BE ABLE TO WALK FOR AT LEAST 10 MINUTES WITHOUT AD AND WITHOUT AGGREVATION OF SYMPTOMS IN ORDER TO PERFORM ADL'S AND IADL'S MORE EASILY. Goal Time Frame: 6-8 Weeks Goal Progress: Goal Met Goal 5:: PATIENT WILL BE INDEP WITH A HEP FOR CONTINUED IMPROVEMENT ONCE FORMAL PHYSICAL THERAPY CONCLUDES. Goal Time Frame: 6-8 Weeks Anticipated Interventions Anticipated Interventions Patient/Client Instruction: Educate patient on: Condition, Plan of Care and Risk Factors For the Purpose of:: To improve self management Therapeutic Exercise to Include: Strength training, Body mechanics, Postural training, Flexibilty training, Gait and locomotor training, Neuromotor development, In an aquatic setting and Dynamic Lumbar Stabilization For the Purpose of:: To decrease pain, To improve muscle performance and motor function, To increase tolerance to activity/condition/position, To improve ability of physical actions for home/community/work/leisure, To improve gait and locomotor functions, To increase flexibility/ROM and To improve self management Re-Evaluation Ending Re-evaluation ending: Please do not hesitate to contact me at [phone] by phone or if you have questions or concerns regarding this new plan of care! Sincerely, Brigitte Gibson, MPT
--- NOTE | 2025-04-15 08:54 | HP.PTDCSUM_ITS ---
Discharge Summary D/C summary: It has been my pleasure to treat RYANNE RENTERIA referred by Dr. Dexter Guerra MD, with the diagnosis of S/P LUMBAR FUSION 12/17/24 for a total of 21 visit(s). Discharge Date: 04/15/25 Please see the following information for a summary of their discharge status. Subjective Subjective: Pt noting she feel okay today with pain noted in central portion of LB. Pt noting a little sore following previous session but no more than normal. No questions/concerns regarding her current HEP. Pt filled out back Oswestry prior to entering pool today. Pain LBP: Pain Intensity (Out of 10): 3 Overall Improvement % Improvement: 65 Objective Objective/Function: Balance completed in the 3ft today for increased challenge. Pt visibly more challenged with RLE balance vs LLE today with balance exercises. With back kick and forward reach pt struggles with sequencing and needing add itional cues. Spoke with pt throughout about different depths and how balance challenge varies in deeper vs shallower water. pt verbalizing understanding. Pt has no questions/concerns and has no additional things she would liek to review and feels comfortable with what she has for INDEP work. Goals Goal 1:: DECREASE C/O LOW BACK PAIN BY AT LEAST 50% TO EASE ADL'S Goal Progress: Goal Met Goal 2:: PATIENT WILL COMPLETE 8 STANDS IN 30 SECS WITH HANDS ON KNEES TO DEMONSTRATE IMPROVED FUNCTIONAL STRENGTH Goal Progress: Goal Met Goal 3:: PATIENT WILL COMPLETE TUG IN < 12 SECS TO DEMONSTRATE IMPROVED GAIT STABILITY Goal Progress: Goal Met Goal 4:: PATIENT WILL BE ABLE TO WALK FOR AT LEAST 10 MINUTES WITHOUT AD AND WITHOUT AGGREVATION OF SYMPTOMS IN ORDER TO PERFORM ADL'S AND IADL'S MORE EASILY. Goal Progress: Goal Met Goal 5:: PATIENT WILL BE INDEP WITH A HEP FOR CONTINUED IMPROVEMENT ONCE FORMAL PHYSICAL THERAPY CONCLUDES. Plan Plan: ON LAST VISIT PLEASE GIVE OSWESTRY (Back) and let know last visit was completed and pt has compete AT routine for indep. CONTINUE AQUATIC THERAPY 2X'S A WK X 2 additional weeks to give indep AT program for POSTURE CORRECTION/STRENGTHENING, INSTRUCTION IN APPROPRIATE BODY MECHANICS AND ACTIVITY MODIFICATIONS. DLS, LATISHA LE ROM, STRETCHING AND STRENGTHENING of L spine and LE's as she is more than 12 weeks post op. D/C Information d/c sentence: If there are questions or concerns regarding this patient's physical therapy, please feel free to call me at [phone]. Thank you for the referral of this patient. Sincerely, Brigitte Gibson, MPT Balance/Gait/Functional tests Balance/Special Test Scores Oswestry Low Back Score: 16 Improvement % Improvement: 65
== END 2025-04-08 19:00 | disposition home or self-care (01) ==
LOC: PT 10:30
PROVIDERS: PCP Student in an Organized Health Care Education/Training Program; Referring Provider Orthopaedic Surgery Orthopaedic Surgery of the Spine; Visit Provider Orthopaedic Surgery Orthopaedic Surgery of the Spine
DX: Z98.1 Arthrodesis status (principal)
CPT/HCPCS: 97113; 97162; 97530

== ENCOUNTER 2025-05-27 14:29 | Observation (INO) | payer MEDICARE, SELFPAY ==
[2025-05-27] VITALS (10 sets, daily range): BP systolic 114–141; BP diastolic 67–84; PULSE 59–75; RESP 14–19; TEMP 36.3–36.7; O2SAT 95–100; BMI 31.2; BMI 30.9
--- NOTE | 2025-05-27 14:38 | ED.RN ---
Patient triggered possible stroke alert due to having double vision and dizziness. Per Dr. Cadet, she is not a stroke patient.
--- NOTE | 2025-05-27 14:48 | CT_ITS ---
EXAM: CT Head Without Intravenous Contrast CLINICAL INDICATION: NEURO DEFICIT, ACUTE, STROKE SUSPECTED TECHNIQUE: Axial computed tomography images of the head/brain without intravenous contrast. This CT exam was performed using one or more of the following dose reduction techniques: automated exposure control, adjustment of the mA and/or kV according to patient size, and/or use of iterative reconstruction technique. COMPARISON: No relevant prior studies available. FINDINGS: BRAIN AND EXTRA-AXIAL SPACES: Areas of decreased attenuation in the deep cerebral white matter are consistent with small vessel ischemic/degenerative changes. The cerebral and cerebellar sulci are mildly prominent consistent with mild brain atrophy. No acute intracranial hemorrhage, midline shift or mass effect. If symptoms persist, further evaluation with MRI is recommended. BONES/JOINTS: Unremarkable. No acute fracture. SOFT TISSUES: Unremarkable. SINUSES: Mucous retention cysts of the right maxillary sinus. MASTOID AIR CELLS: Unremarkable as visualized. No mastoid effusion. CT/STROKE Brain/Head without Cont IMPRESSION: 1. Small vessel ischemic/degenerative changes. 2. No acute intracranial hemorrhage, midline shift or mass effect. If symptoms persist, further evaluation with MRI is recommended. Red Alert: No acute intracranial hemorrhage. The critical information above was relayed directly by me by telephone to Johann Callahan on 05/27/2025 at 3:03 pm with readback verification. Reading Location: [facility]
--- NOTE | 2025-05-27 14:48 | EKG12_ITS ---
Test Reason : STROKE/DIZZINESS Blood Pressure : */* mmHG Vent. Rate : 65 BPM Atrial Rate : 65 BPM P-R Int : 212 ms QRS Dur : 74 ms QT Int : 424 ms P-R-T Axes : 43 18 4 degrees QTcB Int : 440 ms Sinus rhythm with 1st degree A-V block Otherwise normal ECG Confirmed by Jabari Del Castillo ([id number]), publishing editor TED TEE ([id number]) on 05/28/2025 1:18:36 PM Referred By: ROBYN Confirmed By: Jabari Del Castillo
--- NOTE | 2025-05-27 14:53 | EX.ED.DYSGE1 ---
HPI History of Present Illness Chief Complaint: Dizziness Narrative Narrative: Chief complaint and HPI: Resolved double vision and lightheadedness. 60-year-old female with past medical history of TIA, HTN, HLD presents for evaluation of resolved double vision and lightheadedness. Patient states that she was at the [facility] swimming in which at 12:45 PM she developed double vision. She states that this was similar to her previous TIA. She states the double vision has since resolved however she feels lightheaded and weak. She does endorse that she did exert herself with swimming and is concerned the weakness may be secondary to this. She denies any vertigo/room spinning. She denies any head trauma. She denies any fever, chills, shortness of breath, chest pain, abdominal pain, numbness/tingling, dysarthria, aphasia, focal neurological deficit at this time. Review of systems: See HPI Medications: As listed on the chart Allergies: As listed on the chart PFSH: Per chart Vital signs: As listed on the chart. Reviewed. Physical exam: Gen: A&O x3, NAD Head: Normocephalic, atraumatic Eyes: No sclera icterus, conjunctiva clear, PERRL, EOMI no visual field deficits/no diplopia ENT: Moist mucous membranes, No facial asymmetry Neck: Trachea midline, No JVD CV: RRR, no murmurs, no peripheral edema Resp: Lungs CTA BL, no w/r/c GI: Abd soft, non-distended, non-tender, no r/r/g Musc: Full ROM, no deformity, strength +5/5 in all extremities, no pronator drift, no ataxia Skin: Warm, dry, intact Neuro: Alert, oriented, grossly intact, sensation intact, no focal deficits, NIH 0 Psych: Cooperative, appropriate mood and affect [facility] Medical History (Updated 05/27/25 @ 15:13 by Eladia Hutton) High blood cholesterol Marijuana use Sleep apnea History of pain when walking Hypertension TIA (transient ischemic attack) Easy bruising Asthma Restless legs Shortness of breath on exertion Cardiology follow-up encounter History of echocardiogram Major depressive disorder Borderline personality disorder Seasonal allergies Post-menopausal Wears glasses Wears dentures 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 Depression Anxiety Alcohol use Ambulates with cane Fatty liver Back pain History of IBS Gastric reflux Former smoker Pulmonary hypertension CPAP (continuous positive airway pressure) dependence History of edema History of stress test H/O transesophageal echocardiography (ELAINE) for monitoring Normal Holter exam History of irregular heartbeat Premature ventricular contraction Premature atrial contraction ARLEN (obstructive sleep apnea) SVT (supraventricular tachycardia) Non-rheumatic mitral regurgitation Nonrheumatic mitral (valve) prolapse Tachycardia Osteoarthritis History of emotional problems Hematuria Home Medications ?Medication ?Instructions ?Recorded ?Last Taken ?Type magnesium oxide 400 mg PO DAILY SUPPLEMENT 01/27/21 05/27/25 History levocetirizine 5 mg tablet (Xyzal) 5 mg PO DAILY ALLERGIES 09/13/22 05/27/25 History pantoprazole 40 mg tablet,delayed 40 mg PO DAILY GERD #90 tabs 07/12/23 05/27/25 Rx release lamotrigine 200 mg tablet 400 mg PO DAILY ANXIETY 04/24/24 05/27/25 History (Lamictal) aspirin 81 mg chewable tablet 81 mg PO BREAKFAST BLOOD THINNER 07/29/24 05/27/25 Rx #30 tabs quetiapine 100 mg tablet 100 mg PO QHS SLEEP 08/30/24 05/26/25 History rosuvastatin 20 mg tablet 20 mg PO QHS SLEEP 08/30/24 05/26/25 History furosemide 20 mg tablet 20 mg PO DAILY PRN edema #90 tabs 10/17/24 12/16/24 07:00 Rx vitamin E (dl, acetate) 180 mg 180 mg PO QDAY SLEEP 10/17/24 05/26/25 History (400 unit) capsule alendronate 70 mg tablet 70 mg PO QWEEK OSTEOPOROSIS 11/23/24 05/26/25 History metoprolol succinate 50 mg 50 mg PO DAILY BP 12/05/24 05/27/25 History tablet,extended release 24 hr polyethylene glycol 3350 17 17 g PO DAILY PRN STOOL SOFTENER 12/05/24 12/16/24 07:00 History gram/dose oral powder (ClearLax) ascorbate calcium (vitamin C) 500 500 mg PO QDAY 01/29/25 05/27/25 History mg tablet losartan 25 mg tablet 25 mg PO QDAY #90 tabs 04/25/25 05/27/25 Rx calcium citrate 250 mg PO DAILY 05/27/25 05/26/25 History cholecalciferol (vitamin D3) 125 125 mcg PO DAILY 05/27/25 05/27/25 History mcg (5,000 unit) capsule clonazepam 0.5 mg tablet (Klonopin) 0.5 mg PO DAILY 05/27/25 05/26/25 History clonazepam 1 mg tablet 1 mg PO BID 05/27/25 05/27/25 History quetiapine 400 mg tablet 400 mg PO QHS 05/27/25 05/26/25 History ursodiol 250 mg tablet 250 mg PO BIDCM 05/27/25 05/27/25 History zinc gluconate 50 mg tablet 50 mg PO DAILY PRN SUPPLEMENT 05/27/25 Unknown History Allergy/AdvReac Type Severity Reaction Status Date / Time bethanechol (From Urecholine) Allergy Mild saliva Verified 05/27/25 14:30 adhesive tape Allergy rash Verified 05/27/25 14:30 Sulfa (Sulfonamide Allergy Rash Verified 05/27/25 14:30 Antibiotics) Family History Mother Anxiety Arthritis Depression Mental disorder Osteoporosis Atrial fibrillation Sister Breast cancer Diabetes Brother Diabetes Father CAD (coronary artery disease) History of coronary artery bypass surgery Atrial fibrillation Gallbladder cancer Diabetes Heart disease Alcoholism Aunt Colon cancer Other Hypertension Melanoma Surgical History (Updated 05/27/25 @ 14:39 by Eladia Hutton) H/O spinal fusion History of lumbar fusion (12/17/24) History of esophagogastroduodenoscopy (EGD) History of surgery History of rotator cuff surgery History of cardiac catheterization Hx of arthroscopy of right knee (~2017) History of tonsillectomy (~2008) History of bladder surgery (~1971) Social History household members: spouse current occupational status: unemployed 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 Smoking Status: Former smoker quit date: 11/07/09 pack-years: 20 Electronic Cigarette Use: not used alcohol intake: current alcohol intake frequency: a few times a month Alcohol type: beer substance use type: does not use caffeine: Yes Type: coffee Number of servings: 1 what type of physical activity do you participate in: swimming frequency: 3-4 times per week do you feel safe at home: Yes EXAM Physical Exam Const Vital Signs: 05/27/25 14:31 05/27/25 14:48 05/27/25 14:48 Temperature 97.3 F L Temperature Source Temporal Pulse Rate 68 67 Respiratory Rate 18 18 Blood Pressure 137/84 H 135/76 H Blood Pressure Mean 101 95 Pulse Ox 97 97 96 Oxygen Delivery Method Room Air Room Air Room Air 05/27/25 15:18 05/27/25 15:30 05/27/25 16:02 Temperature Temperature Source Pulse Rate 67 75 60 Respiratory Rate 19 H 16 15 Blood Pressure 141/79 H 132/81 H 114/74 Blood Pressure Mean 99 98 87 Pulse Ox 100 100 100 Oxygen Delivery Method Room Air Room Air Room Air 05/27/25 16:03 Temperature 97.3 F L Temperature Source Pulse Rate 60 Respiratory Rate 15 Blood Pressure 114/74 Blood Pressure Mean 87 Pulse Ox 100 Oxygen Delivery Method MDM MDM MDM Narrative Medical decision making narrative: 60-year-old female with past medical history of TIA, HTN, HLD presents for evaluation of resolved double vision and lightheadedness. Patient states that she was at the [facility] swimming in which at 12:45 PM she developed double vision. She states that this was similar to her previous TIA. She states the double vision has since resolved however she feels lightheaded and weak. Weakness is not focal. NIH 0. Differential diagnosis includes but is not limited to TIA, CVA, electrolyte abnormality, dehydration, overexertion from physical activity. Given patient had a last known normal with acute neurological deficits and similar to previous TIA, patient was made a stroke alert. Given NIH of 0, patient not a TNK candidate. Patient was taken immediately to CT imaging. Stroke workup ordered. Patient was evaluated by teleneurology at [facility]. Agrees that NIH is 0 and no TNK. Plan is for aspirin and admission for CVA workup including MRI. CT of the brain shows small vessel ischemic/degenerative changes. No acute intracranial abnormality. CBC without leukocytosis or anemia. BMP unremarkable except for mild hyperglycemia. Troponin unremarkable. Head negative for LVO or high-grade stenosis. Patient will warrant admission for further workup. Patient was discussed with the hospitalist service who accepted admission. Patient confirmed understanding of the plan EKG: Interpreted by me/EM physician: EKG shows normal sinus rhythm with first-degree AV block. No acute ischemic changes. Heart rate 65 Impression: 1. Diplopia, resolved 2. Lightheadedness 3. Weakness 4. Concern for TIA Lab Data Labs: Laboratory Results - last 24 hr 05/27/25 05/27/25 14:47 14:51 WBC 8.2 RBC 4.03 L Hgb 13.0 Hct 37.2 MCV 92.3 MCH 32.3 H MCHC 34.9 RDW Std Deviation 40.6 RDW Coeff of Bravo 12.0 Plt Count 210 MPV 12.0 Immature Gran % (Auto) 0.500 Neut % (Auto) 62.8 Lymph % (Auto) 28.8 [place] % (Auto) 5.3 Eos % (Auto) 1.9 Baso % (Auto) 0.7 Absolute Neuts (auto) 5.2 Absolute Lymphs (auto) 2.37 Nucleated RBC % 0 Sodium 139 Potassium 4.0 Chloride 105 Carbon Dioxide 22.0 Anion Gap 12 BUN 12 Creatinine 0.91 Estim Creat Clear Calc 70.84 Est GFR (MDRD) Non-Af 72 BUN/Creatinine Ratio 13.4 Glucose 126 H Calcium 9.4 Troponin T High Sens < 6 POC Glucose 111 H Radiography Diagnostic Testing: Clinical Impression(s) from Imaging Studies Brain CT 05/27/25 14:48 IMPRESSION: 1. Small vessel ischemic/degenerative changes. 2. No acute intracranial hemorrhage, midline shift or mass effect. If symptoms persist, further evaluation with MRI is recommended. Red Alert: No acute intracranial hemorrhage. The critical information above was relayed directly by me by telephone to Johann Wade on 05/27/2025 at 3:03 pm with readback verification. Reading Location: [facility] Head/Neck CTA 05/27/25 14:55 IMPRESSION: No acute large vessel occlusions or high grade stenosis. Reading Location: [facility] Discharge Plan Triage Chief Complaint: Dizziness ED Provider: Johann Wade Dx/Rx/DC Orders Prescriptions: No Action levocetirizine [Xyzal] 5 mg tablet 5 mg PO DAILY lamotrigine [Lamictal] 200 mg tablet 400 mg PO DAILY vitamin E (dl, acetate) 180 mg (400 unit) capsule 180 mg PO QDAY rosuvastatin 20 mg tablet 20 mg PO QHS quetiapine 100 mg tablet 100 mg PO QHS Patient Comments: TAKES WITH 400MG FOR TOTAL DAILY DOSE OF 500MG alendronate 70 mg tablet 70 mg PO QWEEK ascorbate calcium (vitamin C) 500 mg tablet 500 mg PO QDAY aspirin 81 mg Tablet,Chewable 81 mg PO BREAKFAST Qty: 30 2RF polyethylene glycol 3350 [ClearLax] 17 gram/dose powder 17 g PO DAILY PRN (Reason: STOOL SOFTENER) metoprolol succinate 50 mg tablet extended release 24 hr 50 mg PO DAILY Rx Instructions: 50 mg orally DAILY (pt also takes a PRN dose of Metoprolol Tartrate 50 mg PRN episode of rapid HR); clonazepam 1 mg tablet 1 mg PO BID Rx Instructions: AM & PM quetiapine 400 mg tablet 400 mg PO QHS Patient Comments: TAKES WITH 100MG FOR TOTAL DAILY DOSE OF 500MG cholecalciferol (vitamin D3) 125 mcg (5,000 unit) capsule 125 mcg PO DAILY calcium citrate 250 mg calcium tablet 250 mg PO DAILY zinc gluconate 50 mg tablet 50 mg PO DAILY PRN (Reason: SUPPLEMENT) ursodiol 250 mg tablet 250 mg PO BIDCM clonazepam [Klonopin] 0.5 mg tablet 0.5 mg PO DAILY Rx Instructions: MID DAY magnesium oxide 400 mg magnesium tablet 400 mg PO DAILY pantoprazole 40 mg tablet,delayed release (DR/EC) 40 mg PO DAILY Qty: 90 0RF furosemide 20 mg tablet 20 mg PO DAILY PRN (Reason: edema) Qty: 90 3RF losartan 25 mg tablet 25 mg PO QDAY Qty: 90 3RF Primary Care Provider: Agapito Saucedo Referrals: Agapito Saucedo DO [Primary Care Provider] - Print Language: Syriac
--- NOTE | 2025-05-27 14:55 | CT_ITS ---
PROCEDURE: STROKE CTA HEAD AND NECK W/CON 05/27/2025 REASON FOR EXAM: NEURO DEFICIT, ACUTE, STROKE SUSPECTED TECHNIQUE: STROKE CTA HEAD AND NECK W/CON Multiplanar Sagittal and Coronal images were obtained. CONTRAST: 100 mL of Isovue 370 One or more dose reduction techniques were used (e.g., Automated exposure control, adjustment of the mA and/or kV according to patient size, use of iterative reconstruction technique). RADIATION DOSE SUMMARY: DLP: 656 mGycm COMPARISON: 07/27/24 FINDINGS: The aortic arch demonstrates a type I configuration. The ostia of the great vessels are patent. There is conventional branching. The right CCA is patent but tortuous. There is no significant stenosis of the right carotid bifurcation by NASCET criteria. The cervical right ICA is patent. The right MCA and right SWAPNIL appear patent. There is no large vessel occlusion. The left CCA is patent but tortuous. There is no significant stenoses at the left carotid bifurcation by NASCET criteria. The cervical left ICA is patent. The left MCA and left SWAPNIL appear patent. There is no large vessel occlusion. The right vertebral artery arises from the right subclavian artery. The left vertebral artery arises from the left subclavian artery. Both vertebral arteries are patent. The left vertebral artery is dominant. Both vertebral arteries join to form the patent basilar artery. Both posterior cerebral arteries arise from the tip of the basilar. Hypoplastic posterior communicating arteries which may be consistent with normal variant but patent. There is no large vessel occlusion. There is no enhancing intracranial mass. Shotty cervical lymph nodes are identified. The thyroid gland is heterogeneous. The lung apices demonstrate no pneumothorax. No destructive osseous abnormalities identified. CT/STROKE CTA Head AND Neck W/Con IMPRESSION: No acute large vessel occlusions or high grade stenosis. Reading Location: [id number]
[2025-05-27 14:59] LABS: Hematocrit 37.2 % (37-47); Hemoglobin 13.0 g/dL (12.0-15.0); Immature Granulocytes Count 0.040 X10^3/uL (0.0-0.0); Mean Corp Hgb Conc 34.9 g/dL (32-36); Mean Corpuscular Volume 92.3 fL (81-99); Mean Platelet Vol. 12.0 fl (6.2-12.0); NRBC Flagged by Analyzer 0 % (0-5); Platelet Count 210 K/mm3 (150-450); RBC Distribution Width CV 12.0 % (11.6-14.6); RBC Distribution Width SD 40.6 fl (35.1-43.9); Red Blood Count 4.03 M/mm3 (4.2-5.4); White Blood Count 8.2 K/mm3 (4.4-11.0)
[2025-05-27] MEDS: 0.9% Normal Saline (1000mL) 1,000 ML 999 ML IV (15:03)
--- NOTE | 2025-05-27 15:37 | CM.ED ---
Social work Reason for referral: stroke alert SW responded to stroke alert called in [facility] ED. Patient was taken to imaging and SW introduced self and role at [facility]. SW stayed with patient's , Madelin. Madelin discussed last time patient had a stroke and stated unfortunately being aware of the process. Madelin talked with SW about various topics throughout time patient was in imaging. Patient arrived back to the room and SW left room to give space for doctor and nurses. SW to remain available as needed. Alessia Bunch, TELEMARKETING MANAGER, SCORING MACHINE OPERATOR
[2025-05-27 15:40] LABS: Troponin T High Sensitivity < 6 ng/L (<=14)
[2025-05-27 15:41] LABS: Anion Gap 12 (5-15); BUN 12 mg/dL (4-19); BUN/Creat Ratio 13.4 RATIO (10-20); Calcium,Total 9.4 mg/dL (7.6-11.0); Carbon Dioxide 22.0 mmol/L (21.0-32.0); Chloride 105 mmol/L (98-108); Estimated Creatinine Clearance 70.84 ml/min (50-250); Glucose 126 mg/dL (70-99); Potassium 4.0 mmol/L (3.3-5.1)
[2025-05-27 15:47] LABS: Prothrombin Time (Protime)PT. 12.3 SECONDS (11.7-14.9)
[2025-05-27 15:48] LABS: Partial Thromboplast Time 29.1 Seconds (24.1-36.2)
--- NOTE | 2025-05-27 16:49 | PCM.HP.STD ---
HPI - General General Date of Admission: 05/27/25 Date of Service: 05/27/25 Chief Complaint: Double vision HPI Narrative RYANNE RENTERIA, is a 60-year-old female history of TIA, ARLEN, GERD, depression who presented to [facility] ED 05/27/2025 for evaluation of resolved double vision lightheadedness. She was at the [facility] swimming and developed double vision at 1245. It was similar to previous TIA so ultimately she came to the ED for evaluation. Double vision has since resolved but she feels somewhat lightheaded and weak but noted that she did exert herself with swimming and was concerned weakness could be secondary to that. Patient was a stroke call in the ED. NIH 0 patient not TNK candidate. In ED temp 97.3, heart rate 68 with blood pressure 137/84. Respiratory rate 18 pulse ox 97% on room air. CT head with chronic changes but no acute change. CTA head and neck no LVO. CBC with normal white blood cell count and hemoglobin. [id number] glucose 111. BMP unremarkable aside from a glucose of 126. Troponin of less than 6. Teleneurology evaluated and recommended no TNK given low NIH. They also recommended aspirin load and admission for CVA rule out. Hospitalist contacted for admission. Patient evaluated at bedside. She reports she was swimming when she developed the double vision that improved when she covered 1 eye, this lasted about 15 minutes and she also felt lightheaded and weak. She had another episode when she got home before she came to the ED but has had no further episodes in the ED. Currently vision back to baseline. Feels somewhat weak diffusely but denies any focal complaints, no headache. Does note that she had her spinal stimulator removed since last time and is now able to get MRIs. Patient does note some increased bilateral lower extremity swelling today, she previously would take as needed Lasix but has not had to take any in over a month. Denies any shortness of breath or cough, no chest pain. [facility] Medical History (Updated 05/27/25 @ 16:[address] Angela Rosa MD) Alcohol use Ambulates with cane Anxiety Asthma Back pain Borderline personality disorder Cardiology follow-up encounter CPAP (continuous positive airway pressure) dependence Depression Easy bruising Fatty liver Former smoker Gastric reflux H/O transesophageal echocardiography (ELAINE) for monitoring Hematuria High blood cholesterol History of echocardiogram History of edema History of emotional problems History of IBS History of irregular heartbeat History of pain when walking History of stress test Hypertension Irregular heart beat Major depressive disorder Marijuana use Non-rheumatic mitral regurgitation Nonrheumatic mitral (valve) prolapse Normal Holter exam ARLEN (obstructive sleep apnea) Osteoarthritis Osteoporosis 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 Post-menopausal Premature atrial contraction Premature ventricular contraction Pulmonary hypertension Restless legs Seasonal allergies Shortness of breath on exertion Sleep apnea SVT (supraventricular tachycardia) Tachycardia TIA (transient ischemic attack) Wears dentures Wears glasses Home Medications ?Medication ?Instructions ?Recorded ?Last Taken ?Type magnesium oxide 400 mg PO DAILY SUPPLEMENT 01/27/21 05/27/25 History levocetirizine 5 mg tablet (Xyzal) 5 mg PO DAILY ALLERGIES 09/13/22 05/27/25 History pantoprazole 40 mg tablet,delayed 40 mg PO DAILY GERD #90 tabs 07/12/23 05/27/25 Rx release lamotrigine 200 mg tablet 400 mg PO DAILY ANXIETY 04/24/24 05/27/25 History (Lamictal) aspirin 81 mg chewable tablet 81 mg PO BREAKFAST BLOOD THINNER 07/29/24 05/27/25 Rx #30 tabs quetiapine 100 mg tablet 100 mg PO QHS SLEEP 08/30/24 05/26/25 History rosuvastatin 20 mg tablet 20 mg PO QHS SLEEP 08/30/24 05/26/25 History furosemide 20 mg tablet 20 mg PO DAILY PRN edema #90 tabs 10/17/24 12/16/24 07:00 Rx vitamin E (dl, acetate) 180 mg 180 mg PO QDAY SLEEP 10/17/24 05/26/25 History (400 unit) capsule alendronate 70 mg tablet 70 mg PO QWEEK OSTEOPOROSIS 11/23/24 05/26/25 History metoprolol succinate 50 mg 50 mg PO DAILY BP 12/05/24 05/27/25 History tablet,extended release 24 hr polyethylene glycol 3350 17 17 g PO DAILY PRN STOOL SOFTENER 12/05/24 12/16/24 07:00 History gram/dose oral powder (ClearLax) ascorbate calcium (vitamin C) 500 500 mg PO QDAY 01/29/25 05/27/25 History mg tablet losartan 25 mg tablet 25 mg PO QDAY #90 tabs 04/25/25 05/27/25 Rx calcium citrate 250 mg PO DAILY 05/27/25 05/26/25 History cholecalciferol (vitamin D3) 125 125 mcg PO DAILY 05/27/25 05/27/25 History mcg (5,000 unit) capsule clonazepam 0.5 mg tablet (Klonopin) 0.5 mg PO DAILY 05/27/25 05/26/25 History clonazepam 1 mg tablet 1 mg PO BID 05/27/25 05/27/25 History quetiapine 400 mg tablet 400 mg PO QHS 05/27/25 05/26/25 History ursodiol 250 mg tablet 250 mg PO BIDCM 05/27/25 05/27/25 History zinc gluconate 50 mg tablet 50 mg PO DAILY PRN SUPPLEMENT 05/27/25 Unknown History Allergy/AdvReac Type Severity Reaction Status Date / Time bethanechol (From Urecholine) Allergy Mild saliva Verified 05/27/25 14:30 adhesive tape Allergy rash Verified 05/27/25 14:30 Sulfa (Sulfonamide Allergy Rash Verified 05/27/25 14:30 Antibiotics) Family History Mother Anxiety Arthritis Depression Mental disorder Osteoporosis Atrial fibrillation Sister Breast cancer Diabetes Brother Diabetes Father CAD (coronary artery disease) History of coronary artery bypass surgery Atrial fibrillation Gallbladder cancer Diabetes Heart disease Alcoholism Aunt Colon cancer Other Hypertension Melanoma Surgical History (Updated 05/27/25 @ 14:39 by Eladia Hutton) H/O spinal fusion History of bladder surgery (~1971) History of cardiac catheterization History of esophagogastroduodenoscopy (EGD) History of lumbar fusion (12/17/24) History of rotator cuff surgery History of surgery History of tonsillectomy (~2008) Hx of arthroscopy of right knee (~2017) Social History household members: spouse current occupational status: unemployed 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 Smoking Status: Former smoker quit date: 11/07/09 pack-years: 20 Electronic Cigarette Use: not used alcohol intake: current alcohol intake frequency: a few times a month Alcohol type: beer substance use type: does not use caffeine: Yes Type: coffee Number of servings: 1 what type of physical activity do you participate in: swimming frequency: 3-4 times per week do you feel safe at home: Yes ROS ROS Narrative General: Denies fever/chills HENT: Denies headache, has some runny nose from allergies, denies sore throat EYES: Had double vision that is since resolved Resp: Denies cough, denies shortness of breath Cardiac: Denies chest pain GI: Denies abdominal pain, has had a couple extra bowel movements today but ate something different than usual last night, denies nausea/vomiting : Denies changes in urination Extremity: Has some increased lower extremity swelling MSK: Denies weakness Neuro: Denies any numbness/tingling Heme: Denies any bleeding or bruising Skin: Reports she has a couple of red dots on her nose that she is unsure where they came from Psychiatric: No complaints voiced Vital Signs Vital Signs Vital Signs: 05/27/25 14:31 05/27/25 14:48 05/27/25 14:48 Temperature 97.3 F L Temperature Source Temporal Pulse Rate 68 67 Respiratory Rate 18 18 Blood Pressure 137/84 H 135/76 H Blood Pressure Mean 101 95 Pulse Ox 97 97 96 Oxygen Delivery Method Room Air Room Air Room Air 05/27/25 15:18 05/27/25 15:30 05/27/25 16:02 Temperature Temperature Source Pulse Rate 67 75 60 Respiratory Rate 19 H 16 15 Blood Pressure 141/79 H 132/81 H 114/74 Blood Pressure Mean 99 98 87 Pulse Ox 100 100 100 Oxygen Delivery Method Room Air Room Air Room Air 05/27/25 16:03 Temperature 97.3 F L Temperature Source Pulse Rate 60 Respiratory Rate 15 Blood Pressure 114/74 Blood Pressure Mean 87 Pulse Ox 100 Oxygen Delivery Method Weight Weight: 85.139 kg Body Mass Index (BMI) 31.2 Physical Exam Narrative General: Alert, oriented, no apparent distress HEENT: Atraumatic, normocephalic Eyes: Anicteric, normal conjunctiva, extraocular movements intact, pupils equal Neck: Supple Respiratory: Clear to auscultation bilaterally, normal respiratory effort Cardiovascular: Regular rate and rhythm GI: Soft, nontender, nondistended Extremities: Does have lower extremity edema with mild pitting Musculoskeletal: Strength 5 out of 5 in right upper extremity, 5 out of 5 left upper extremity, 5 out of 5 right lower extremity, 5 out of 5 left lower extremity Neuro: No overt focal neurological deficits, cranial nerves II through XII intact, [id number] without significant difficulty bilaterally Skin: Couple of small red dots on nose Psych: Cooperative Results Lab / Micro Data 05/27/25 14:47 05/27/25 14:47 Labs: Laboratory Results - last 24 hr 05/27/25 14:47: WBC 8.2, RBC 4.03 L, Hgb 13.0, Hct 37.2, MCV 92.3, MCH 32.3 H, MCHC 34.9, RDW Std Deviation 40.6, RDW Coeff of Bravo 12.0, Plt Count 210, MPV 12.0, Immature Gran % (Auto) 0.500, Neut % (Auto) 62.8, Lymph % (Auto) 28.8, Warrick % (Auto) 5.3, Eos % (Auto) 1.9, Baso % (Auto) 0.7, Absolute Neuts (auto) 5.2, Absolute Lymphs (auto) 2.37, Nucleated RBC % 0, PT 12.3, INR 0.9, APTT 29.1, Sodium 139, Potassium 4.0, Chloride 105, Carbon Dioxide 22.0, Anion Gap 12, BUN 12, Creatinine 0.91, Estim Creat Clear Calc 70.84, Est GFR (MDRD) Non-Af 72, BUN/Creatinine Ratio 13.4, Glucose 126 H, Calcium 9.4, Troponin T High Sens < 6 05/27/25 14:51: POC Glucose 111 H Imaging Radiology Impression Brain CT 05/27/25 14:48 IMPRESSION: 1. Small vessel ischemic/degenerative changes. 2. No acute intracranial hemorrhage, midline shift or mass effect. If symptoms persist, further evaluation with MRI is recommended. Red Alert: No acute intracranial hemorrhage. The critical information above was relayed directly by me by telephone to Johann Wade on 05/27/2025 at 3:03 pm with readback verification. Reading [facility] Head/Neck CTA 05/27/25 14:55 IMPRESSION: No acute large vessel occlusions or high grade stenosis. Reading Location: [facility] Assessment & Plan Assessment/Plan (1) Double vision: PLAN: Plan # Transient double vision and lightheadedness -Admit to tele -CT head w/ chronic changes in ED -CTA head and neck no acute process -MRI ordered-patient has spinal stimulator but had lumbar MRI earlier this year -NIH q4hr -asa, statin -Echo -PT/OT/Speech eval -Teleneuro consult ordered -Hold BP medications to allow for permissive hypertension for 24 hours unless SBP greater than 220 or DBP greater than 120 or until stroke is ruled out #BLE swelling - She reports that she has not had problems with this recently but has had swelling in her bilateral lower extremities today -Will check proBNP -Will be checking echo as above -Daily weights, I's and O's #GERD -Continue PPI #ARLEN -Continue home NIPPV if applicable #Depression/anxiety -Continue home medications # Chronic back pain -Spinal stimulator has been removed -Had fusion with Dr. Noriega since last admission per patient #DVT ppx: SCDs Angela Rosa MD Charges/Coding Visit Charges Inpatient E&M: 53957 Init Hosp L2
[2025-05-27 17:53] LABS: Troponin T High Sens 2 HR < 6 ng/L (<=14)
--- NOTE | 2025-05-27 17:59 | ECHOD_ITS ---
Reason For Study Reason For Study: TIA/Stroke Procedure This was a 2D Doppler, Color Flow transthoracic echocardiogram. Exam performed portable in patient room. Left Ventricle Normal LV size. Left ventricular systolic function is normal. The left ventricular ejection fraction is 60 %. No regional wall motion abnormalities noted. Right Ventricle Normal RV size. Normal systolic function. Mitral Valve Normal mitral valve. Mild (1+) eccentric mitral valve insufficiency. Tricuspid Valve Normal tricuspid valve. Mild (1+) tricuspid valve insufficiency. Pulmonary artery systolic pressure is 36 mmHg. Aortic Valve Trisinus/trileaflet aortic valve. Pulmonic Valve Normal pulmonic valve. Great Vessels Mildly dilated aortic root. The pulmonary artery is normal size. Normal inferior vena cava. Pericardium/Pleural No pericardial effusion. MMode/2D Measurements & Calculations LVIDd: 4.2 cm IVSd: 0.84 cm Ao root diam: 4.0 cm LVIDs: 2.5 cm LVPWd: 0.94 cm RVDd: 3.4 cm FS: 41.6 % LAV(MOD-bp): 50.4 ml LVAd ap4: 25.0 cm2 SV(MOD-sp4): 45.5 ml LAV(MOD-bp) Indexed: 26.2 ml/m2 LVLd ap4: 7.4 cm SI(MOD-sp4): 23.6 ml/m2 LAV(MOD-sp2): 54.1 ml EDV(MOD-sp4): 71.9 ml LAV(MOD-sp4): 42.4 ml EDV(sp4-el): 72.0 ml LVAs ap4: 13.5 cm2 LVLs ap4: 6.1 cm ESV(MOD-sp4): 26.4 ml ESV(sp4-el): 25.6 ml EF(MOD-sp4): 63.2 % EF(sp4-el): 64.4 % SV(sp4-el): 46.3 ml LA dimension(2D): 4.0 cm LA A4 area: 17.6 cm2 RA A4 area: 15.3 cm2 TAPSE: 2.0 cm Time Measurements MV dec time: 0.19 sec Doppler Measurements & Calculations MV E max karan: 102.5 cm/sec Lat Peak E' Karan: 12.1 cm/sec Med Peak E' Karan: 10.7 cm/sec MV A max karan: 69.3 cm/sec E/E' lat: 8.4 E/E' med: 9.5 MV E/A: 1.5 Ao V2 max: 143.3 cm/sec LV V1 max: 125.3 cm/sec MV dec slope: 527.5 cm/sec2 Ao max P.2 mmHg LV V1 max P.3 mmHg Ao V2 mean: 100.2 cm/sec LV V1 mean P.2 mmHg Ao mean P.6 mmHg LV V1 mean: 82.7 cm/sec Ao V2 VTI: 35.0 cm LV V1 VTI: 28.8 cm AV (velocity ratio): 0.82 PA V2 max: 84.6 cm/sec TR max karan: 288.4 cm/sec TR max P.3 mmHg ECHO/Echo Complete Interpretation Summary Normal LV size. Left ventricular systolic function is normal. Mild (1+) eccentric mitral valve insufficiency. The left ventricular ejection fraction is 60 %. Pulmonary artery systolic pressure is 36 mmHg. Ordering Physician: Angela Rosa Referring Physician: Agapito Saucedo Performed By: Jazmyne Mccormick RVT, RDCS and Student
[2025-05-27 19:20] LABS: Pro- Brain NATRIURETIC PEPTIDE 1031 pg/mL (<=900)
[2025-05-27 19:21] LABS: Troponin T High Sens 4 HR 8 ng/L (<=14)
[2025-05-27] MEDS: 0.9% Saline Lock 10 ML Syringe IV (19:44)
--- OUTSIDE RECORDS SUMMARY | 2025-05-27 21:14 | XMS RPT_ITS | CCD ---
Author Organization [facility] Care Team Providers Care Outsole Caser Name Role Phone Zafar Doran Unavailable Unavailable PROVIDER, UNKNOWN Unavailable Unavailable No, PCP Unavailable Unavailable Agapiot Jiménez Primary Care Provider [phone] ROMAR DO, DR OSUNA Primary Care Physician [phone] SALINA PHILLIPS CNP Attending Unavailable REGINO JOHNSON MD Admitting Unavailable UnAvailable Primary Care Unavailable Agapito Jiménez DO Primary Care Provider [phone] JERI DAVIS-KEVIN, OZ Attending Unavai lable ROMAR DO, DR OSUNA Primary Care Unavailable FREDERICK DAVIS-ELIDIA BROWN Attending Unavailab le ROMAR DO, DR OSUNA Primary Care Unavailable ROMAR DO, DR OSUNA Attending Unavailable ROMAR DO, DR OSUNA Primary Care Unavailable ROMAR DO, DR OSUNA Attending Unavailable ROMAR DO, DR OSUNA Primary Care Unavailable ROMAR DO, DR OSUNA Attending Unavailable ROMAR DO, DR OSUNA Primary Care Unavailable JERI DAVIS-OZ BROWN Attending Unavai lable ROMAR DO, DR OSUNA Primary Care Unavailable ROMAR DO, DR OSUNA Attending Unavailable ROMAR DO, DR OSUNA Primary Care Unavailable ROMAR DO, DR OSUNA Attending Unavailable ROMAR DO, DR OSUNA Primary Care Unavailable ROMAR DO, DR OSUNA Attending Unavailable ROMAR DO, DR OSUNA Primary Care Unavailable ROMAR DO, DR OSUNA Attending Unavailable ROMAR DO, DR OSUNA Primary Care Unavailable ROMAR DO, DR OSUNA Attending Unavailable ROMAR DO, DR OSUNA Primary Care Unavailable ROMAR DO, DR OSUNA Attending Unavailable ROMAR DO, DR OSUNA Primary Care Unavailable Agapito Jiménez Primary Care Unavailable Guerra, Dexter Attending Unavailable Guerra, Dexter Referring Unavailable Friend, Homar Attending Unavailable Friend, Homar Referring Unavailable Romar, Agapito Primary Care Unavailable Romar, Agapito Primary Care Unavailable Guerra, Dexter Attending Unavailable Guerra, Dexter Referring Unavailable Romar, Agapito Referring Unavailable Kierra Barkley Attending Unavailable Romar, Agapito Primary Care Unavailable Romar, Agapito Primary Care Unavailable Peyman Cantu Consulting Unavailable Guerra, Dexter Attending Unavailable Guerra, Dexter Admitting Unavailable Guerra, Dexter Referring Unavailable Aidan Garcia Consulting Unavailable Friend, Homar Attending Unavailable Friend, Homar Referring Unavailable Romar, Agapito Primary Care Unavailable Romar, Agapito Referring Unavailable Romar, Agapito Attending Unavailable Romar, Agapito Primary Care Unavailable Koram, Luna Renée Attending Unavailable Koram, Luna Renée Referring Unavailable Romar, Agapito Primary Care Unavailable Romar, Agapito Attending Unavailable Romar, Agapito Referring Unavailable Romar, Agapito Primary Care Unavailable Neymar Croft Attending Unavailable Rebecca Wiggins Referring Unavailable Romar, Agapito Primary Care Unavailable Romar, Agapito Referring Unavailable Ino Mccormick NP Attending Unavailable Romar, Agapito Primary Care Unavailable Romar, Agapito Referring Unavailable Friend, Homar Attending Unavailable Romar, Agapito Primary Care Unavailable Leandro Granados Attending Unavailable Romar, Agapito Primary Care Unavailable Lavelle Narvaez Consulting Unavailable Angela Rosa Admitting Unavailable Young Cortes Referring Unavailable Koram, Luna Renée Attending Unavailable Romar, Agapito Primary Care Unavailable Adeli, Amir Consulting Unavailable Hinduja, Mary Consulting Unavailable Nick Reba Consulting Unavailable Zha, Marta Consulting Unavailable Ab, Kalyan Consulting Unavailable Jaclyn, Ilda Consulting Unavailable Bryan Ortega Consulting Unavailable Sundar Bernal Consulting Unavailable David Morales Consulting Unavailable Shwetha Ojeda Consulting Unavailable Edilson Wills Consulting Unavailable Yelitza Schwartz Consulting Unavailable Liane Ludwig Consulting Unavailable Lani Beatty Consulting UnavailHarpal Das Consulting Unavailable Lyla Hughes Consulting Unavailable Eliseo Tejada Consulting Unavailable Joya Gusman Consulting Unavailable Namita Arias Consulting Unavailable Angela Rosa Consulting Unavailable Koram, Luna Renée Consulting Unavailable Koram, Luna Renée Referring Unavailable Roberta, Atmore Attending Unavailable Romar, Agapito Primary Care Unavailable Minal Batista Attending Unavailabl e Romar, Agapito Primary Care Unavailable Romar, Agapito Primary Care Unavailable Jefferson Marshall Attending Unavailable Romar, Agapito Primary Care Unavailable Guerra, Dexter Referring Unavailable Guerra, Dexter Attending Unavailable RosaAngela Attending Unavailable Romar, Agapito Primary Care Unavailable Peyman Cantu Consulting Unavailable Guerra, Dexter Attending Unavailable Guerra, Dexter Admitting Unavailable Guerra, Dexter Referring Unavailable Guerra, Dexter Consulting Unavailable Basali, Ayman Referring Unavailable Basali, Ayman Attending Unavailable Romar, Agapito Primary Care Unavailable Koram, Luna Renée Attending Unavailable Angela Rosa Admitting Unavailable Lavelle Narvaez Consulting Unavailable Young Cortes Referring Unavailable Romar, Agapito Primary Care Unavailable Faby Burns Consulting Unavailable Mary New Consulting Unavailable Nick Reba Consulting Unavailable Staci Marta Consulting Unavailable Kalyan Berger Consulting Unavailable Ilda Anaya Consulting Unavailable Bryan Ortega Consulting Unavailable Sundar Bernal Consulting Unavailable David Morales Consulting Unavailable Shwetha Ojeda Consulting Unavailable Edilson Wills Consulting Unavailable Yelitza Schwartz Consulting Unavailable Liane Ludwig Consulting Unavailable Lani Beatty Consulting UnavailHarpal Das Consulting Unavailable Lyla Huhges Consulting Unavailable Eliseo Tejada Consulting Unavailable Joya Gusman Consulting Unavailable Namita Arias Consulting Unavailable Angela Rosa Consulting Unavailable Roberta, [place] Attending Unavailable Romar, Agapito Primary Care Unavailable Romar, Agapito Primary Care Unavailable Ric Genao Attending Unavailable Romar, Agapito Referring Unavailable Romar, Agapito Primary Care Unavailable Guerra, Dexter Attending Unavailable Homar Wills Attending Unavailable Romar, Agapito Referring Unavailable Romar, Agapito Primary Care Unavailable Romar, Agapito Referring Unavailable Guerra, Dexter Attending Unavailable Romar, Agapito Referring Unavailable Kierra Barkley Attending Unavailable Romar, Agapito Primary Care Unavailable Roberta, [place] Attending Unavailable Romar, Agapito Primary Care Unavailable Romar, Agapito Primary Care Unavailable Romar, Agapito Referring Unavailable Guerra, Dexter Attending Unavailable Roberta, [place] Attending Unavailable Romar, Agapito Primary Care Unavailable Romar, Agapito Referring Unavailable Dexter Guerra Attending Unavailable Elena Jiménezey Primary Care Unavailable Lewis Agapito Referring Unavailable Homar Wills Attending Unavailable Elena Jiménezey Primary Care Unavailable Elena Jiménezey Primary Care Unavailable Kierra Barkley Attending Unavailable Guerra, Dexter Referring Unavailable Guerra, Dexter Admitting Unavailable Peyman Cantu Consulting Unavailable Jose Aidan Consulting Unavailable Dexter Guerra Consulting Unavailable Aidan Garcia Attending Unavailable Allergies Allergy Classification Reported Allergen(s) Allergy Type Date of Onset Reaction(s) Facility (3 sources) Bethanechol Drug Allergy 09-19-20 06 Intolerance [facility] (3 sources) Codeine Drug Allergy 07-17-20 11 Other: See Comments [facility] (4 sources) Sulfonamides (Antibiotic); Translations: [Sulfa (Sulfonamide Antibiotics)] Drug Allergy 08-12-20 11 Rash [facility] (3 sources) nasal sprays [Other] Propensity to adverse reactions 03-22-20 07 [facility] (16 sources) Sulfonamides (Antibiotic); Translations: [sulfa drugs] Drug allergy Eruption of skin (disorder) [facility] (15 sources) Adhesive bandage Allergy to substance rash [facility] (14 sources) Bethanechol; Translations: [bethanechol] Drug Allergy Saliva (substance) [facility] (2 sources) Dairy products Food allergy Gastrointestinal irritation (disorder) [facility] (1 source) Adhesive Tape Drug allergy (disorder) 03-20-20 [facility] (1 source) Bethanechol Drug Allergy 03-20-20 [facility] Medications Current Medications Medication Drug Class(es) Dates Sig (Normalized) Sig (Original) Albuterol (Eqv-ProAir HFA) 90 mcg/inh inhalation aerosol (16 sources) Start: 12-16-2020 take 1 dose by inhalation every four hours as needed for wheezing Albuterol (Eqv-ProAir HFA) 90 mcg/inh inhalation aerosol Dose = 2 puff(s), Inhalation, q4h, PRN Shortness of breath or wheezing, 0 Refill(s) Start Date: 12/16/20 Status: Ordered Repeat number: 1 Start: 12-16-2020 take 1 dose by inhal ation every four hours as needed for wheezing Albuterol (Eqv-ProAir HFA) 90 mcg/inh inhalation aerosol Dose = 2 puff(s), Inhalation, q4h, PRN Shortness of breath or wheezing, 0 Refill(s) Start Date: 12/16/20 Status: Ordered aspirin 81 mg chewable tablet (4 sources) Platelet Aggregation Inhibitor, Nonsteroidal Anti-inflammatory Drug Start: 09-06-2024 aspirin 81 mg oral tablet, chewable Dose : 81 mg = 1 tab(s), Oral, qDay, chew before swallowing, # 90 tab(s), 0 Refill(s) Start Date: 09/06/24 Status: Ordered Quantity: 90.0 Unit: tab(s) Repeat number: 1 24 hr buPROPion hydrochloride 300 mg extended release oral tablet (9 sources) Aminoketone Start: 08-12-2020 take 1 tablet by mouth every hour, then take 1 tablet by mouth every twenty-four hours Wellbutrin XL 300 mg/24 hours oral tablet, extended release Dose : 300 mg = 1 tab(s), Oral, q24h, 0 Refill(s) Start Date: 08/12/20 Status: Ordered Start: 08-09-2020 End: 11-07-2020 take 1 tablet by mouth once daily buPROPion XL (WELLBUTRIN XL) 300 mg 24 hr tablet Take 1 tablet by mouth once daily. 30 tablet 2 08/09/2020 Active Comment on above: Take 1 tablet by [facility] once daily. celecoxib 200 mg oral capsule (2 sources) Nonsteroidal Anti-inflammatory Drug Start: 04-29-20 End: 04-12-20 take 1 capsule by mouth twice daily celecoxib (CELEBREX) 200 mg capsule Take 200 mg by mouth twice daily. 0 04/29/2020 04/12/2024 Discontinued Comment on above: Take 200 mg by mouth twice daily. clonazePAM 0.5 mg oral tablet (14 sources) Benzodiazepine Start: 09-06-20 clonazePAM 0.5 mg oral tablet Dose : 0.5 mg = 1 tab(s), Oral, qDay, as needed third dose, # 90 tab(s), 0 Refill(s), 89.7 Start Date: 09/06/24 Status: Ordered Quantity: 90.0 Unit: tab(s) Repeat number: 1 Start: 08-11-2023 clonazePAM Dos e : 1 mg =, Oral, BID, 0 Refill(s), 99.4 Start Date: 08/11/23 Status: Ordered Repeat number: 1 Start: 08-11-2023 clonazePAM Dos e : 1 mg =, Oral, BID, 0 Refill(s), 99.4 Start Date: 08/11/23 Status: Ordered DULoxetine 60 mg delayed release oral capsule (9 sources) Serotonin and Norepinephrine Reuptake Inhibitor Start: 04-29-2020 End: 11-07-2020 take 1 capsule by mouth once daily DULoxetine (CYMBALTA) 60 mg capsule Take 1 capsule by mouth once daily. 30 capsule 2 08/09/2020 Active Comment on above: [facility] echinacea oral tablet (1 source) Start: 06-09-2021 take 1 tablet by mouth once daily echinacea oral tablet 1 tablet daily, 0 Refill(s) Start Date: 06/09/21 Status: Ordered gabapentin 300 mg oral capsule (6 sources) Anti-epileptic Agent Start: 01-05-2022 End: 02-04-2022 gabapentin 300 mg oral capsule Dose : 300 mg = 1 cap(s), Oral, TID, # 270 cap(s), 0 Refill(s), Pharmacy: [facility], Lumbosacral spondylosis without myelopathy Degeneration of lumbosacral intervertebral disc, 165.1, cm, 01/05/22 8:51:00 EST, Height, 102.6, kg, 01/05/22 8... Start Date: 01/05/22 Stop Date: 02/04/22 Status: Ordered Start: 08-11-2021 End: 11-09-2021 gabapentin 300 mg oral capsu le Dose : 300 mg = 1 cap(s), Oral, QID, # 360 cap(s), 4 Refill(s), Pharmacy: [facility]/pharmacy #[id number], Lumbosacral spondylosis without myelopathy Degeneration of lumbosacral intervertebral disc, 165.1, cm, 08/11/21 8:43:00 EDT, Height, 104.5, kg, 08/11/21 8:... Start Date: 08/11/21 Stop Date: 11/09/21 Status: Ordered Start: 08-08-2020 End: 04-12-2024 take 3 capsules by mouth once daily at bedtime gabapentin (NEURONTIN) 300 mg capsule Take 3 capsules by mouth daily at bedtime for 90 days. 90 capsule 2 08/08/2020 04/12/2024 Discontinued Comment on above: Take 3 capsules by m outh daily at bedtime for 90 days. lamoTRIgine 200 mg oral tablet (10 sources) Mood Stabilizer, Anti-epileptic Agent Start: 4 lamoTRIgine 200 mg oral tablet Dose : 400 mg = 2 tab(s), Oral, qDay, 0 Refill(s) Start Date: 12/07/23 Status: Ordered Repeat number: 1 levomefolate (1 source) End: 4 take 15 mg by mouth once daily levomefolate calcium (DEPLIN ORAL) Take 15 mg by mouth once daily. 0 04/12/2024 Discontinued linaclotide 0.145 mg oral capsule (6 sources) Guanylate Cyclase-C Agonist Start: 3 Linzess 145 mcg oral capsule Dose : 145 mcg = 1 cap(s), Oral, qDayAC, 30 minutes before breakfast. Do NOT crush/chew, # 90 cap(s), 0 Refill(s) Start Date: 01/13/23 Status: Ordered Start: 04-22-2021 End: 06-21-2021 Linzess 145 mcg oral capsule Dose : 145 mcg = 1 cap(s), Oral, qDay, # 60 cap(s), 0 Refill(s), Pharmacy: [facility], 164.46, cm, 04/22/21 8:56:00 EDT, Height, kg, 04/22/21 8:56:00 EDT, Dosing Weight Start Date: 04/22/21 Stop Date: 06/21/21 Status: Ordered LORazepam 1 mg oral tablet (9 sources) Benzodiazepine Start: 10-02-2018 take 1 tablet by mouth every eight hours as needed LORazepam (ATIVAN) 1 mg tablet Take 1 mg by mouth every 8 hours as needed. 0 10/02/2018 Active Comment on above: Take 1 mg by mouth e very 8 hours as needed. losartan potassium 25 mg oral tablet (11 sources) Angiotensin 2 Receptor Tripp Start: 04-30-2024 losartan 25 mg oral tablet Dose : 25 mg = 1 tab(s), Oral, qDay, # 90 tab(s), 3 Refill(s), Pharmacy: [facility], 168, cm, 01/12/24 8:56:00 EST, Height, kg, 01/12/24 8:56:00 EST, Dosing Weight Start Date: 04/30/24 Status: Ordered Quantity: 90.0 Unit: tab(s) Repeat number: 4 Start: 03-09-2023 losartan 25 mg oral tablet Dose : 25 mg = 1 tab(s), Oral, qDay, # 30 tab(s), 6 Refill(s), Pharmacy: [facility] #[id number], 165.1, cm, 03/09/23 9:00:00 EDT, Height Start Date: 03/09/23 Status: Ordered lubiprostone 0.008 mg oral capsule (2 sources) Chloride Channel Activator Start: 01-12-2024 take 1 capsule by mouth twice daily lubiprostone 8 mcg oral capsule take 1 capsule by mouth twice a day Start Date: 01/12/24 Status: Ordered Magnesium complex 400 mg (16 sources) Start: 04-29-2020 take 1 tablet by mouth once daily, then take 1 tablet by mouth once daily Magnesium complex 400 mg 1 tab, Oral, Daily, one daily, 0 Refill(s) Start Date: 04/29/20 Status: Ordered Repeat number: 1 Start: 04-29-2020 take 1 tablet by josefina once daily, then take 1 tablet by mouth once daily Magnesium complex 400 mg 1 tab, Oral, Daily, one daily, 0 Refill(s) Start Date: 04/29/20 Status: Ordered magnesium oxide 250 mg oral tablet (3 sources) Start: 08-09-2024 take 1 mg by mouth once daily Magnesium 250 mg tablet mg = tab(s), Oral, qDay, 0 Refill(s) Start Date: 08/09/24 Status: Ordered Repeat number: 1 methocarbamol 750 mg oral tablet (1 source) Muscle Relaxant Start: 01-13-2023 End: 01-27-2023 methocarbamol 750 mg oral tablet Dose : 1,500 mg = 2 tab(s), Oral, TID, PRN Muscle spasm, Do not drive, operate heavy machinery, or drink alcohol while on this med., X 7 day(s), # 42 tab(s), 1 Refill(s), 01/27/23 10:26:00 EDT, Pharmacy: [facility] #[id number], 166, cm, 01/13/23 10:00:00 EST... Start Date: 01/13/23 Stop Date: 01/27/23 Status: Ordered 24 hr metoprolol succinate 50 mg extended release oral tablet (20 sources) beta-Adrenergic Tripp Start: 05-29-2024 metoprolol succinate 50 mg oral TABLET extended release Dose : 50 mg = 1 tab(s), Oral, qDay, Do not crush or chew (controlled release), # 90 tab(s), 0 Refill(s) Start Date: 05/29/24 Status: Ordered Quantity: 90.0 Unit: tab(s) Repeat number: 1 Start: 02-06-2024 metoprolol tar trate 50 mg oral tablet Dose : 50 mg = 1 tab(s), Oral, BID, PRN palpitations, # 180 tab(s), 3 Refill(s), Pharmacy: [facility], 168, cm, 01/12/24 8:56:00 EST, Height, kg, 01/12/24 8:56:00 EST, Dosing Weight Start Date: 02/06/24 Status: Ordered Quantity: 180.0 Unit: tab(s) Repeat number: 4 Start: 11-09-2023 take 1.5 tablets by mouth once daily metoprolol succinate 50 mg oral TABLET extended release See Instructions, 1.5 tab daily, # 135 tab(s), 3 Refill(s), Pharmacy: [facility], 164.6, cm, 09/14/23 9:07:00 EST, Height, kg, 09/14/23 9:07:00 EST, Dosing Weight Start Date: 11/09/23 Status: Ordered Start: 08-11-2020 metoprolol suc cinate 50 mg oral TABLET extended release Dose : 50 mg = 1 tab(s), Oral, qDay, # 90 tab(s), 3 Refill(s), Pharmacy: [facility]/pharmacy #[id number], 166, cm, 07/30/20 10:39:00 EDT, Height, kg, 07/30/20 10:39:00 EDT, Dosing Weight Start Date: 08/11/20 Status: Ordered Start: 08-11-2020 metoprolol suc cinate 50 mg oral TABLET extended release Dose : 50 mg = 1 tab(s), Oral, qDay, # 90 tab(s), 3 Refill(s), Pharmacy: [facility]/pharmacy #[id number], 166, cm, 07/30/20 10:39:00 EDT, Height, kg, 07/30/20 10:39:00 EDT, Dosing Weight Start Date: 08/11/20 Status: Ordered Start: 09-19-2018 take 1 tablet by josefina th once daily metoprolol succinate ER (TOPROL XL) 25 mg 24 hr tablet Take 50 mg by mouth once daily. 0 09/19/2018 Active Comment on above: Take 50 mg by mouth once daily. [facility] (12 sources) Start: 02-17-2022 [facility] [place]. [place] medical marijuana card, 0 Refill(s), 103.2 Start Date: 02/17/22 Status: Ordered Repeat number: 1 Start: 02-17-2022 [facility] [place]. [place] card, 0 Refill(s), 103.2 Start Date: 02/17/22 Status: Ordered nitrofurantoin macrocrystals-monohydrate 100 mg oral capsule (2 sources) Start: 01-01-2022 End: 2022 nitrofurantoin macrocrystals-monohydrate 100 mg oral capsule Dose : 100 mg = 1 cap(s), Oral, BID, Take with food. Drink plenty of fluids., X 5 day(s), # 10 cap(s), 0 Refill(s), 01/06/22 10:02:00 EST, Pharmacy: [facility], 166, cm, 12/08/21 8:28:00 EST, Height, 102.7, kg, 12/08/21 8:28:00 EST, Dosing We... Start Date: 01/01/22 Stop Date: 01/06/22 Status: Ordered Start: 12-08-2021 End: 12-13-2021 nitrofurantoin macrocrystals -monohydrate 100 mg oral capsule Dose : 100 mg = 1 cap(s), Oral, BID, Take with food. Drink plenty of fluids., X 5 day(s), # 10 cap(s), 0 Refill(s), 12/13/21 10:43:00 EST, Pharmacy: [facility], 166, cm, 12/08/21 8:28:00 EST, Height, 102.7, kg, 12/08/21 8:28:00 EST, Dosing We... Start Date: 12/08/21 Stop Date: 12/13/21 Status: Ordered nitrofurantoin, macrocrystals 25 mg / nitrofurantoin, monohydrate 75 mg oral capsule (2 sources) Nitrofuran Antibacterial Start: 05-07-2024 End: 05-12-2024 Macrobid 100 mg oral capsule Dose : 100 mg = 1 cap(s), Oral, BID, Take with food, X 5 day(s), # 10 cap(s), 0 Refill(s), 05/12/24 10:34:00 AM EDT, Pharmacy: [id number], Dysuria, 165, cm, 05/07/24 9:34:00 EDT, Height, 92.5, kg, 05/07/24 9:34:00 EDT, Dosing Weight Start Date: 05/07/24 Stop Date: 05/12/24 Status: Ordered oxyCODONE hydrochloride 5 mg oral tablet (1 source) Opioid Agonist Start: 11-30-2021 oxyCODONE 5 mg oral tablet ( IMMEDIATE release ) 0 Refill(s), 107.7 Start Date: 11/30/21 Status: Ordered pantoprazole 40 mg delayed release oral tablet (19 sources) Proton Pump Inhibitor Start: 09-10-2024 End: 03-09-2025 Protonix 40 mg oral enteric coated tablet Dose : 40 mg = 1 tab(s), Oral, qDayAC, # 90 tab(s), 1 Refill(s), Pharmacy: [facility], 164, cm, 09/06/24 14:34:00 EDT, Height, kg, 09/06/24 14:34:00 EDT, Dosing Weight Start Date: 09/10/24 Stop Date: 03/09/25 Status: Ordered Quantity: 90.0 Unit: tab(s) Repeat number: 2 Start: 01-12-2024 End: 07-10-2024 Protonix 40 mg oral enteric coated tablet Dose : 40 mg = 1 tab(s), Oral, qDayAC, # 90 tab(s), 1 Refill(s), Pharmacy: [facility], 168, cm, 01/12/24 8:56:00 EST, Height, kg, 01/12/24 8:56:00 EST, Dosing Weight Start Date: 01/12/24 Stop Date: 07/10/24 Status: Ordered Start: 04-22-2021 End: 07-21-2021 Protonix 40 mg oral enteric coated tablet Dose : 40 mg = 1 tab(s), Oral, qDay, # 90 tab(s), 0 Refill(s), Pharmacy: [facility], 164.46, cm, 04/22/21 8:56:00 EDT, Height, kg, 04/22/21 8:56:00 EDT, Dosing Weight Start Date: 04/22/21 Stop Date: 07/21/21 Status: Ordered pantoprazole DR (PROTONIX) 40 mg tablet Take 20 mg by mouth once daily. 0 Active Comment on above: Take 20 mg by mouth once daily. 24 hr QUEtiapine 400 mg extended release oral tablet (20 sources) Atypical Antipsychotic Start: 09-06-2024 QUEtiapine 100 mg oral tablet Dose : 100 mg = 1 tab(s), Oral, qDay, take with 400 mg dose for total of 500 mg, # 270 tab(s), 0 Refill(s) Start Date: 09/06/24 Status: Ordered Quantity: 270.0 Unit: tab(s) Repeat number: 1 Start: 09-06-2024 QUEtiapine 400 mg oral tablet, extended release Dose : 400 mg = 1 tab(s), Oral, qDay, take with 100 mg dose ofr total of 500 mg, # 30 tab(s), 0 Refill(s) Start Date: 09/06/24 Status: Ordered Quantity: 30.0 Unit: tab(s) Repeat number: 1 Start: 10-13-2021 take 1 dose by mouth once daily at bedtime SEROquel Dose : 300 mg =, Oral, qHS, 0 Refill(s) Start Date: 10/13/21 Status: Ordered Start: 08-11-2021 SEROquel 300 m g oral tablet Dose : 300 mg = 1 tab(s), Oral, qHS Start Date: 08/11/21 Status: Ordered Start: 08-08-2020 End: 11-06-2020 take 1 tablet by mouth once daily at bedtime QUEtiapine (SEROQUEL) 200 mg tablet Take 1 tablet by mouth daily at bedtime. 30 tablet 2 08/08/2020 Active Comment on above: Take 1 tablet by josefina th daily at bedtime. rosuvastatin calcium 20 mg oral tablet (4 sources) HMG-CoA Reductase Inhibitor Start: 4 End: 5 Crestor 20 mg oral tablet Dose : 20 mg = 1 tab(s), Oral, qHS, # 100 tab(s), 1 Refill(s), Pharmacy: [facility], 164, cm, 09/06/24 14:34:00 EDT, Height, kg, 09/06/24 14:34:00 EDT, Dosing Weight Start Date: 09/06/24 Stop Date: 03/25/25 Status: Ordered Quantity: 100.0 Unit: tab(s) Repeat number: 2 tiZANidine 4 mg oral capsule (2 sources) Central alpha-2 Adrenergic Agonist Start: 8 End: 4 take 2 capsules by mouth once daily at bedtime tiZANidine HCl 4 mg capsule Take 8 mg by mouth daily at bedtime. 3 09/20/2018 04/12/2024 Discontinued Comment on above: Take 8 mg by mouth d aily at bedtime. Completed/Discontinued Medications Medication Drug Class(es) Dates Sig (Normalized) Sig (Original) alendronic acid 70 mg oral tablet (2 sources) Bisphosphonate Start: 11-22-2024 End: 12-22-2024 take 6-8 [oz_av] by mouth once daily alendronate 70 mg oral tablet Dose : 70 mg = 1 tab(s), Oral, qWeek, with 6-8 oz plain water, at least 30 minutes before first food, beverage, or medication of the day, # 13 tab(s), 3 Refill(s), Pharmacy: [facility], 164, cm, 11/22/24 9:38:00 EST, Height, kg, 11/22/24 9:34:00 EST, Dosing Weight Start Date: 12/03/24 Status: Ordered Quantity: 13.0 Unit: tab(s) Repeat number: 4 baclofen 10 mg oral tablet (4 sources) gamma-Aminobutyric Acid-ergic Agonist Start: 04-15-2021 End: 10-12-2021 baclofen 10 mg oral tablet Dose : 10 mg = 1 tab(s), Oral, Daily, PRN Pain, # 90 tab(s), 1 Refill(s), Pharmacy: [facility], Lumbosacral spondylosis without myelopathy, 165.1, cm, 04/15/21 10:28:00 EDT, Height, kg, 04/15/21 10:28:00 EDT, Dosing Weight Start Date: 04/15/21 Stop Date: 10/12/21 Status: Ordered capsaicin 0.33 mg/ml topical cream (3 sources) Start: 10-08-2024 End: 11-07-2024 capsaicin 0.033% topical cream Apply 1 diana, Topical, QID, PRN as needed for pain, wash hands thoroughly after application, # 56.6 gram(s), 0 Refill(s), Pharmacy: [id number], Cream, 164, cm, 09/06/24 14:34:00 EDT, Height, 89.7, kg, 09/06/24 14:34:00 EDT, Dosing Weight Start Date: 10/08/24 Stop Date: 11/07/24 Status: Ordered Quantity: 56.6 Unit: g Repeat number: 1 cyclobenzaprine hydrochloride 5 mg oral tablet (10 sources) Muscle Relaxant Start: 01-30-2024 End: 02-13-2024 cyclobenzaprine 5 mg oral tablet Dose : 5 mg = 1 tab(s), Oral, TID, PRN Muscle spasm, Do not drive, operate heavy machinery, or drink alcohol while on this medication., # 42 tab(s), 0 Refill(s), Pharmacy: [facility], 168, cm, 01/12/24 8:56:00 EST, Height, kg, 01/12/24 8:56:00 EST, Dosing Weight Start Date: 01/30/24 Stop Date: 02/13/24 Status: Ordered Quantity: 42.0 Unit: tab(s) Repeat number: 1 docusate calcium 240 mg oral capsule (6 sources) Start: 06-14-2024 End: 12-11-2024 docusate calcium 240 mg oral capsule Dose : 240 mg = 1 cap(s), Oral, Daily, with plenty of water, # 90 cap(s), 1 Refill(s), Pharmacy: [facility], 165.1, cm, 06/04/24 15:25:00 EDT,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 [address] WBC (Bld) [#/Vol] 10.9 10*3/uL Normal 4.4-11.0 [facility] Comment on above: Performed By: #### L 500.2500, L100.0500 ####[facility] [address] [place], [address] Lumbar Spine 2 or 3 Viewson 12-18-2024 Lumbar Spine 2 or 3 Views Normal [facility] Bedside Glucoseon 12-17-2024 FINGERSTICK GLU 97 mg/dL Normal 74-106 [facility] Comment on above: Result Comment: TOMER GALVEZ OF PATIENT CARE PER NURSING PROTOCOL Performed By: #### L 501.080 ####[facility] [address] [place], [address] MR/POSTOP.ANEon 12-17-2024 MR/POSTOP.ANE Normal [facility] MR/SXEIRSHB2qe 12-17-2024 MR/POSTOPAN2 Normal [facility] Operative Reporton Operative Report Normal [facility] Operative Report Normal [facility] Spine 1 View Any Levelon Spine 1 View Any Level Normal [facility] .GFRon 12-13-2024 Estimated Glomerular Filtration Rate 101 ml/min/1.73sqm Normal [facility] Comment on above: Result Comment: Stages of Chronic Kidney Disease (CKD) Stage Description eGFR(ml/min/1.73 sq.m.) CKD 1 Normal kidney function or >=90 normal kindney function with possible kidney damage (ex. Proteinuria) CKD 2 Kidney damage with mild loss 60-89 of kidney function CKD 3a Mild to moderate loss of kidney 45-59 function CKD 3b Moderate to severe loss of 30-44 of kindey function CKD 4 Severe loss of kidney function 15-29 CKD 5 Kidney failure <15 Note: (go live 2024) the eGFR calculation was updated to the 2020 CKD-EPI creatinine equation without a race factor to calculate the eGFR results. Performed By: #### G , BMP #### [address] [address] BMPon 12-13-2024 BUN/Creatinine Ratio 20 ratio Normal 7-27 [facility] Comment on above: Performed By: #### G FR, BMP #### [address] [address] Calcium [Mass/Vol] 8.8 mg/dL Normal 8.4-10.2 [facility] Comment on above: Performed By: #### G , BMP #### [address] [address] Chloride [Moles/Vol] 106 mmol/L Normal 98-107 [facility] Comment on above: Performed By: #### G FR, BMP #### [address] [address] CO2 [Moles/Vol] 27 mmol/L Normal 22-29 [facility] Comment on above: Performed By: #### G FR, BMP #### [address] [address] Creatinine [Mass/Vol] 0.65 mg/dL Normal 0.55-1.02 [facility] Comment on above: Result Comment: Test ing performed on Siemens Dimension EXL analyzer using a modified kinetic Serafin technique. Performed By: #### G FR, BMP #### [address] [address] Electrolyte Balance 7.0 mEq/L Normal 4.0-15.0 [facility] Comment on above: Performed By: #### G FR, BMP #### [address] [place], [place] [address] Glucose [Mass/Vol] 108 mg/dL High 70-105 [facility] Comment on above: Performed By: #### G , BMP #### [address] [address] Potassium [Moles/Vol] 4.1 mmol/L Normal 3.5-5.1 [facility] Comment on above: Performed By: #### G , BMP #### [address] [address] Sodium [Moles/Vol] 140 mmol/L Normal 136-145 [facility] Comment on above: Performed By: #### G , BMP #### [address] [address] Urea nitrogen [Mass/Vol] 13 mg/dL Normal 7-18 [facility] Comment on above: Performed By: #### G FR, BMP #### [address] [address] LABORATORYOrdered By: SYSTEM SYSTEM on 12-13-2024 Calcium [Mass/Vol] 8.8 mg/dL Normal 8.4 - 10. 2 mg/dL AO ADM SS Chloride [Moles/Vol] 106 mmol/L Normal 98 - 107 mmol/L AO ADM SS CO2 [Moles/Vol] 27 mmol/L Normal 22 - 29 mmol/L AO ADM SS Creatinine [Mass/Vol] 0.65 mg/dL Normal 0.55 - 1.02 mg/dL AO ADM SS Comment on above: Interpretive Data: T esting performed on Siemens Dimension EXL analyzer using a modified kinetic Serafin technique. Electrolyte Balance 7.0 mEq/L Normal 4.0 - 15 .0 mEq/L AO ADM SS Estimated Glomerular Filtration Rate 101 ml/min/1.73sqm Invalid Interpretation Code AO Chemistry S Comment on above: Interpretive Data: Stages of Chronic Kidney Disease (CKD) Stage Description eGFR(ml/min/1.73 sq.m.) CKD 1 Normal kidney function or >=90 normal kindney function with possible kidney damage (ex. Proteinuria) CKD 2 Kidney damage with mild loss 60-89 of kidney function CKD 3a Mild to moderate loss of kidney 45-59 function CKD 3b Moderate to severe loss of 30-44 of kindey function CKD 4 Severe loss of kidney function 15-29 CKD 5 Kidney failure <15 Note: (go live 2024) the eGFR calculation was updated to the 2020 CKD-EPI creatinine equation without a race factor to calculate the eGFR results. Glucose [Mass/Vol] 108 mg/dL High 70 - 105 mg/dL AO ADM SS Natriuretic peptide.B prohormone N-Terminal [Mass/Vol] 201 pg/mL High 0 - 125 pg/mL AO ADM SS Comment on above: Interpretive Data: N T-proBNP results of less than 300 pg/mL effectively rules out acute congestive heart failure with 99% negative predictive value. Potassium [Moles/Vol] 4.1 mmol/L Normal 3.5 - 5.1 mmol/L AO ADM SS Sodium [Moles/Vol] 140 mmol/L Normal 136 - 145 mmol/L AO ADM SS Urea nitrogen [Mass/Vol] 13 mg/dL Normal 7 - 18 mg/dL AO ADM SS Urea nitrogen/Creatinine [Mass ratio] 20 ratio Normal 7 - 27 ratio AO ADM SS PBNPon 12-13-2024 Natriuretic peptide B (Bld) [Mass/Vol] 201 pg/mL High 0-125 [facility] Comment on above: Result Comment: NT-p roBNP results of less than 300 pg/mL effectively rules out acute congestive heart failure with 99% negative predictive value. Performed By: #### G , BMP #### [facility] [address] [place], [place] [address] Hepatitis A AB, Totalon 11-09 HEPATITIS A,TOT Negative Normal Negative [facility] Comment on above: Result Comment: Comm ent: The HAV total antibody assay detects both IgG andIgM but does not differentiate between them. A negativeresult suggests susceptibility to infection. A positiveresult could be due to vaccination, previously resolvedinfection or active infection. Testing for HAV IgM shouldbe performed if active HAV infection is suspected. Labcorpoffers profiles that will automatically reflex positive HAVtotal antibody results to IgM (e.g., panel #[id number] HAVAntibody w/ Rfx).Performed at: [id number] [place], [place] [id number] Director: Danny Rodríguez PhD, Phone: [phone] Performed By: #### L 3890.6005, L100.0100, M100.651, L500.2500, L3100.0300, L3890.6300, BTSPAT, L3890.6200 ####[facility] [address] [place], [address] MRSA/SAID NASAL SCREENon MRSA+SAID SCRN Reason for Exam: Jocelyn yadiel MRSA MRSA Negative S. AUREUS S. aureus Negative Normal [facility] Comment on above: Performed By: #### L 3890.6005, L100.0100, M100.651, L500.2500, L3100.0300, L3890.6300, BTSPAT, L3890.6200 ####[facility] [address] [place], [address] Basic Metabolic Profile (BMP )on 12-05-2024 BUN/CRE 14.7 RATIO Normal 10-20 [facility] Comment on above: Performed By: #### L 3890.6005, L100.0100, M100.651, L500.2500, L3100.0300, L3890.6300, BTSPAT, L3890.6200 ####[facility] [address] [place], [address] CA,Total 9.1 mg/dL Normal 8.5-10.1 [facility] Comment on above: Performed By: #### L 3890.6005, L100.0100, M100.651, L500.2500, L3100.0300, L3890.6300, BTSPAT, L3890.6200 ####[facility] [address] [place], [address] Chloride [Moles/Vol] 107 mmol/L Normal 98-107 [facility] Comment on above: Performed By: #### L 3890.6005, L100.0100, M100.651, L500.2500, L3100.0300, L3890.6300, BTSPAT, L3890.6200 ####[facility] [address] [place], [address] CO2 [Moles/Vol] 27.0 mmol/L Normal 21.0-32.0 [facility] Comment on above: Performed By: #### L 3890.6005, L100.0100, M100.651, L500.2500, L3100.0300, L3890.6300, BTSPAT, L3890.6200 ####[facility] [address] [place], [address] Creatinine [Mass/Vol] 0.75 mg/dL Normal 0.55-1.02 [facility] Comment on above: Result Comment: The validity of the calculated GFR GFRAA in patients over70 years has not been determined. Clinical correlation isessential. Performed By: #### L 3890.6005, L100.0100, M100.651, L500.2500, L3100.0300, L3890.6300, BTSPAT, L3890.6200 ####[facility] [address] [place], [address] EST GFR - AA 101 mL/min Normal >60 [facility] Comment on above: Result Comment: Afri can Israeli GFR Calc Performed By: #### L 3890.6005, L100.0100, M100.651, L500.2500, L3100.0300, L3890.6300, BTSPAT, L3890.6200 ####[facility] [address] [place], [address] GAP 5 Normal 5-15 [facility] Comment on above: Performed By: #### L 3890.6005, L100.0100, M100.651, L500.2500, L3100.0300, L3890.6300, BTSPAT, L3890.6200 ####[facility] [address] [place], [address] GFR/1.73 sq M.predicted among non-blacks MDRD (S/P/Bld) [Vol rate/Area] 84 mL/min/{1.73_m2} Normal >60 [facility] Comment on above: Result Comment: Non- GFR Calc Performed By: #### L 3890.6005, L100.0100, M100.651, L500.2500, L3100.0300, L3890.6300, BTSPAT, L3890.6200 ####[facility] [address] [place], [address] Glucose [Mass/Vol] 89 mg/dL Normal 74-106 [facility] Comment on above: Performed By: #### L 3890.6005, L100.0100, M100.651, L500.2500, L3100.0300, L3890.6300, BTSPAT, L3890.6200 ####[facility] [address] [place], [address] Potassium [Moles/Vol] 4.1 mmol/L Normal 3.5-5.1 [facility] Comment on above: Performed By: #### L 3890.6005, L100.0100, M100.651, L500.2500, L3100.0300, L3890.6300, BTSPAT, L3890.6200 ####[facility] [address] [place], [address] Sodium [Moles/Vol] 139 mmol/L Normal 136-145 [facility] Comment on above: Performed By: #### L 3890.6005, L100.0100, M100.651, L500.2500, L3100.0300, L3890.6300, BTSPAT, L3890.6200 ####[facility] [address] [place], [address] Urea nitrogen [Mass/Vol] 11 mg/dL Normal 7-18 [facility] Comment on above: Performed By: #### L 3890.6005, L100.0100, M100.651, L500.2500, L3100.0300, L3890.6300, BTSPAT, L3890.6200 ####[facility] [address] [place], [address] CBC W/Diff, Automatedon 11-08 Absolute Lymph 2.42 X10 3/uL Normal 0.83-4.51 [facility] Comment on above: Performed By: #### L 3890.6005, L100.0100, M100.651, L500.2500, L3100.0300, L3890.6300, BTSPAT, L3890.6200 ####[facility] [address] [place], [address] Absolute Neut 5.1 X10 3/uL Normal 2.0-7.7 [facility] Comment on above: Performed By: #### L 3890.6005, L100.0100, M100.651, L500.2500, L3100.0300, L3890.6300, BTSPAT, L3890.6200 ####[facility] [address] [place], [address] Basophils/100 WBC (Bld) 0.7 % Normal 0-1 [facility] Comment on above: Performed By: #### L 3890.6005, L100.0100, M100.651, L500.2500, L3100.0300, L3890.6300, BTSPAT, L3890.6200 ####[facility] [address] [place], [address] Eosinophils/100 WBC (Bld) 4.6 % Normal 0-5 [facility] Comment on above: Performed By: #### L 3890.6005, L100.0100, M100.651, L500.2500, L3100.0300, L3890.6300, BTSPAT, L3890.6200 ####[facility] [address] [place], [address] Erythrocyte distribution width (RBC) [Ratio] 11.9 % Normal 11.6-14.6 [facility] Comment on above: Performed By: #### L 3890.6005, L100.0100, M100.651, L500.2500, L3100.0300, L3890.6300, BTSPAT, L3890.6200 ####[facility] [address] [place], [address] Hematocrit (Bld) [Volume fraction] 37.8 % Normal 37-47 [facility] Comment on above: Performed By: #### L 3890.6005, L100.0100, M100.651, L500.2500, L3100.0300, L3890.6300, BTSPAT, L3890.6200 ####[facility] [address] [place], [address] Hemoglobin (Bld) [Mass/Vol] 13.4 g/dL Normal 12.0-15.0 [facility] Comment on above: Performed By: #### L 3890.6005, L100.0100, M100.651, L500.2500, L3100.0300, L3890.6300, BTSPAT, L3890.6200 ####[facility] [address] [place], [address] IG% 0.400 Normal 0.0-0.9 [facility] Comment on above: Result Comment: IG% - Immature Granulocytes (promyelocytes, myelocytes andmetamyelocytes) > 1% indicates that a LEFT SHIFT is Present. Performed By: #### L 3890.6005, L100.0100, M100.651, L500.2500, L3100.0300, L3890.6300, BTSPAT, L3890.6200 ####[facility] [address] [place], [address] Lymphocytes/100 WBC (Bld) 28.7 % Normal 19-41 [facility] Comment on above: Performed By: #### L 3890.6005, L100.0100, M100.651, L500.2500, L3100.0300, L3890.6300, BTSPAT, L3890.6200 ####[facility] [address] [place], [address] MCH (RBC) [Entitic mass] 32.6 pg High 27.0-32.0 [facility] Comment on above: Performed By: #### L 3890.6005, L100.0100, M100.651, L500.2500, L3100.0300, L3890.6300, BTSPAT, L3890.6200 ####[facility] [address] [place], [address] MCHC (RBC) [Mass/Vol] 35.4 g/dL Normal 32-36 [facility] Comment on above: Performed By: #### L 3890.6005, L100.0100, M100.651, L500.2500, L3100.0300, L3890.6300, BTSPAT, L3890.6200 ####[facility] [address] [place], [address] MCV (RBC) [Entitic vol] 92.0 fL Normal 81-99 [facility] Comment on above: Performed By: #### L 3890.6005, L100.0100, M100.651, L500.2500, L3100.0300, L3890.6300, BTSPAT, L3890.6200 ####[facility] [address] [place], [address] Monocytes/100 WBC (Bld) 5.1 % Normal 0-10 [facility] Comment on above: Performed By: #### L 3890.6005, L100.0100, M100.651, L500.2500, L3100.0300, L3890.6300, BTSPAT, L3890.6200 ####[facility] [address] [place], [address] Neutrophils/100 WBC (Bld) 60.5 % Normal 47-70 [facility] Comment on above: Performed By: #### L 3890.6005, L100.0100, M100.651, L500.2500, L3100.0300, L3890.6300, BTSPAT, L3890.6200 ####[facility] [address] [place], [address] Nucleated RBC (Bld) [#/Vol] 0 10*3/uL Normal 0-5 [facility] Comment on above: Performed By: #### L 3890.6005, L100.0100, M100.651, L500.2500, L3100.0300, L3890.6300, BTSPAT, L3890.6200 ####[facility] [address] [place], [address] Platelet mean volume (Bld) [Entitic vol] 11.9 fL Normal 6.2-12.0 [facility] Comment on above: Performed By: #### L 3890.6005, L100.0100, M100.651, L500.2500, L3100.0300, L3890.6300, BTSPAT, L3890.6200 ####[facility] [address] [place], [address] Platelets (Bld) [#/Vol] 182 10*3/uL Normal 150-450 [facility] Comment on above: Performed By: #### L 3890.6005, L100.0100, M100.651, L500.2500, L3100.0300, L3890.6300, BTSPAT, L3890.6200 ####[facility] [address] [place], [address] RBC (Bld) [#/Vol] 4.11 10*6/uL Low 4.2-5.4 [facility] Comment on above: Performed By: #### L 3890.6005, L100.0100, M100.651, L500.2500, L3100.0300, L3890.6300, BTSPAT, L3890.6200 ####[facility] [address] [place], [address] RDW SD 39.6 fl Normal 35.1-43.9 [facility] Comment on above: Performed By: #### L 3890.6005, L100.0100, M100.651, L500.2500, L3100.0300, L3890.6300, BTSPAT, L3890.6200 ####[facility] [address] [place], [address] WBC (Bld) [#/Vol] 8.4 10*3/uL Normal 4.4-11.0 [facility] Comment on above: Performed By: #### L 3890.6005, L100.0100, M100.651, L500.2500, L3100.0300, L3890.6300, BTSPAT, L3890.6200 ####[facility] [address] [place], [address] HIV - WCHon 12-05-2024 HIV Non-Reactive Normal Nonreactive [facility] Comment on above: Order Comment: Reaso n for Exam: PRE-OP Performed By: #### L 3890.6005, L100.0100, M100.651, L500.2500, L3100.0300, L3890.6300, BTSPAT, L3890.6200 ####[facility] [address] [place], [address] Hepatitis B Surface Antibody on 12-05-2024 HEP B Surf Ab Reactive Normal [facility] Comment on above: Order Comment: Reaso n for Exam: PRE-OP Result Comment: Non Reactive: Inconsistent with immunity less than <10 mIU/mL Reactive: Consistent with immunity greater than or equal to 10 mIU/mL Performed By: #### L 3890.6005, L100.0100, M100.651, L500.2500, L3100.0300, L3890.6300, BTSPAT, L3890.6200 ####[facility] [address] [place], [address] Hepatitis C Antibodyon 12-05 Hepatitis C AB Non-Reactive Normal Nonreactive [facility] Comment on above: Order Comment: Reaso n for Exam: PRE-OP Result Comment: Non Reactive: < 0.8 Equivocal: >/= 0.8 to < 1.0 Reactive: >/= 1.0The CDC requires that a reactive/equivocal HCV antibodyresult be sent out for confirmation. HCV Quant by PCRtesting. Performed By: #### L 3890.6005, L100.0100, M100.651, L500.2500, L3100.0300, L3890.6300, BTSPAT, L3890.6200 ####[facility] [address] [place], [address] Magnesiumon 12-05-2024 Magnesium [Mass/Vol] 2.2 mg/dL Normal 1.6-2.6 [facility] Comment on above: Performed By: #### L 501.5200 ####[facility] [address] [place], [place], [address] Orthopedic Visit Reporton Orthopedic Visit Report Normal [facility] Type AND Screen - PAT ONLYon 12-05-2024 ABO and Rh group Nom (Bld) Blood group O Rh(D) positive Normal [facility] Comment on above: Order Comment: Surge ry Date: 12/17/24Reason for Laboratory Test PRE-[id number] Lumbar Fusion L4-5, possible cement augmentation Performed By: #### L 3890.6005, L100.0100, M100.651, L500.2500, L3100.0300, L3890.6300, BTSPAT, L3890.6200 ####[facility] [address] [place], [address] Emergency Department Summary on 12-02-2024 Emergency Department Summary Normal [facility] Orthopedic Visit Reporton Orthopedic Visit Report Normal [facility] LABORATORYOrdered By: Janes Luna on 11-22-2024 Albumin DL <= 20 mg/L (U) [Mass/Vol] 218 mcg/dL Invalid Interpretation Code AO ADM SS Albumin/Creatinine DL <= 20 mg/L (U) [Mass ratio] 6 mcg/mg Normal 0 - 30 mcg/mg AO Chemistry S Creatinine (U) [Mass/Vol] 36.1 mg/dL Invalid Interpretation Code AO ADM SS MALBRon 11-22-2024 U Creatinine 36.1 mg/dL Normal [facility] Comment on above: Performed By: #### Armando MERCADO BMP #### [place] [address] [address] U Microalb 218 mcg/dL Normal [facility] Comment on above: Performed By: #### Armando MERCADO, BMP #### [place] [address] [place], [place] [address] U Ratio Alb/Cre 6 mcg/mg Normal 0-30 [facility] Comment on above: Performed By: #### Armando MERCADO, BMP #### [place] [address] [address] Spine Lumbar (Routine)on Spine Lumbar (Routine) Normal [facility] Emergency Department Summary on 11-04-2024 Emergency Department Summary Normal [facility] Dexa Bone Density Studyon Dexa Bone Density Study Normal [facility] L/S Spine Bending Flex/[place] 10-25-2024 L/S Spine Bending Flex/Ext Normal [facility] Orthopedic Visit Reporton Orthopedic Visit Report Normal [facility] Gastroenterology Visit Repor ton 10-17-2024 Gastroenterology Visit Report Normal [facility] .Auto Diffon 10-11-2024 Basophil, Absolute 0.0 10 3/mcL Normal 0.0-0.2 [facility] Comment on above: Performed By: #### A DIFF, TSHR, BMP, GFR, ANEU, CBC, PBNP #### [address] [address] Basophils/100 WBC (Bld) 0.6 % Normal 0.0-2.5 [facility] Comment on above: Performed By: #### A DIFF, TSHR, BMP, GFR, ANEU, CBC, PBNP #### [address] [address] Eosinophil, Absolute 0.4 10 3/mcL Normal 0.0-0.7 [facility] Comment on above: Performed By: #### A DIFF, TSHR, BMP, GFR, ANEU, CBC, PBNP #### [address] [address] Eosinophils/100 WBC (Bld) 5.7 % Normal 0.0-7.0 [facility] Comment on above: Performed By: #### A DIFF, TSHR, BMP, GFR, ANEU, CBC, PBNP #### [address] [address] Lymphocyte, Absolute 2.1 10 3/mcL Normal 0.9-4.3 [facility] Comment on above: Performed By: #### A DIFF, TSHR, BMP, GFR, ANEU, CBC, PBNP #### [address] [address] Lymphocytes/100 WBC (Bld) 29.1 % Normal 20.0-40.0 [facility] Comment on above: Performed By: #### A DIFF, TSHR, BMP, GFR, ANEU, CBC, PBNP #### [address] [address] Monocyte, Absolute 0.5 10 3/mcL Normal 0.1-1.4 [facility] Comment on above: Performed By: #### A DIFF, TSHR, BMP, GFR, ANEU, CBC, PBNP #### [address] [address] Monocytes/100 WBC (Bld) 6.5 % Normal 2.0-13.0 [facility] Comment on above: Performed By: #### A DIFF, TSHR, BMP, GFR, ANEU, CBC, PBNP #### [address] [address] Neutrophils/100 WBC (Bld) 58.1 % Normal 50.0-75.0 [facility] Comment on above: Performed By: #### A DIFF, TSHR, BMP, GFR, ANEU, CBC, PBNP #### [address] [address] .GFRon 10-11-2024 GFR 83 ml/min/1.73sqm Normal [facility] Comment on above: Result Comment: GFR Population mean for , Non- Americans Ages 20-29 = 116 mL/min/1.73 sq.m. Ages 30-39 = 107 mL/min/1.73 sq.m. Ages 40-49 = 99 mL/min/1.73 sq.m. Ages 50-59 = 93 mL/min/1.73 sq.m. Ages 60-69 = 85 mL/min/1.73 sq.m. Ages 70+ = 75 mL/min/1.73 sq.m. Chronic Kidney Disease: Less than 60 mL/min/1.73 square meters End Stage Renal Disease: Less than 15 mL/min/1.73 square meters Performed By: #### A DIFF, TSHR, BMP, GFR, ANEU, CBC, PBNP #### [address] [address] GFR Non- 68 ml/min/1.73sqm Normal [facility] Comment on above: Result Comment: GFR Population mean for , Non- Americans Ages 20-29 = 116 mL/min/1.73 sq.m. Ages 30-39 = 107 mL/min/1.73 sq.m. Ages 40-49 = 99 mL/min/1.73 sq.m. Ages 50-59 = 93 mL/min/1.73 sq.m. Ages 60-69 = 85 mL/min/1.73 sq.m. Ages 70+ = 75 mL/min/1.73 sq.m. Chronic Kidney Disease: Less than 60 mL/min/1.73 square meters End Stage Renal Disease: Less than 15 mL/min/1.73 square meters Performed By: #### A DIFF, TSHR, BMP, GFR, ANEU, CBC, PBNP #### [address] [address] .NEUABSon 10-11-2024 Neutrophil, Absolute 4.2 10 3/mcL Normal 2.3-8.1 [facility] Comment on above: Performed By: #### A DIFF, TSHR, BMP, GFR, ANEU, CBC, PBNP #### [address] [address] BMPon 10-11-2024 BUN/Creatinine Ratio 19 ratio Normal 7-27 [facility] Comment on above: Performed By: #### A DIFF, TSHR, BMP, GFR, ANEU, CBC, PBNP #### [address] [address] Calcium [Mass/Vol] 9.4 mg/dL Normal 8.4-10.2 [facility] Comment on above: Performed By: #### A DIFF, TSHR, BMP, GFR, ANEU, CBC, PBNP #### [address] [address] Chloride [Moles/Vol] 106 mmol/L Normal 98-107 [facility] Comment on above: Performed By: #### A DIFF, TSHR, BMP, GFR, ANEU, CBC, PBNP #### [address] [address] CO2 [Moles/Vol] 25 mmol/L Normal 22-29 [facility] Comment on above: Performed By: #### A DIFF, TSHR, BMP, GFR, ANEU, CBC, PBNP #### [address] [address] Creatinine [Mass/Vol] 0.85 mg/dL Normal 0.55-1.02 [facility] Comment on above: Result Comment: Test ing performed on Siemens Dimension EXL analyzer using a modified kinetic Serafin technique. Performed By: #### A DIFF, TSHR, BMP, GFR, ANEU, CBC, PBNP #### [address] [address] Electrolyte Balance 13.0 mEq/L Normal 4.0-15.0 [facility] Comment on above: Performed By: #### A DIFF, TSHR, BMP, GFR, ANEU, CBC, PBNP #### [address] [address] Glucose [Mass/Vol] 87 mg/dL Normal 70-105 [facility] Comment on above: Performed By: #### A DIFF, TSHR, BMP, GFR, ANEU, CBC, PBNP #### [address] [address] Potassium [Moles/Vol] 4.4 mmol/L Normal 3.5-5.1 [facility] Comment on above: Performed By: #### A DIFF, TSHR, BMP, GFR, ANEU, CBC, PBNP #### [address] [address] Sodium [Moles/Vol] 144 mmol/L Normal 136-145 [facility] Comment on above: Performed By: #### A DIFF, TSHR, BMP, GFR, ANEU, CBC, PBNP #### [address] [address] Urea nitrogen [Mass/Vol] 16 mg/dL Normal 7-18 [facility] Comment on above: Performed By: #### A DIFF, TSHR, BMP, GFR, ANEU, CBC, PBNP #### [address] [address] CBCon 10-11-2024 Erythrocyte distribution width (RBC) [Ratio] 12.9 % Normal 11.5-15.5 [facility] Comment on above: Performed By: #### A DIFF, TSHR, BMP, GFR, ANEU, CBC, PBNP #### [address] [address] Hematocrit (Bld) [Volume fraction] 37.4 % Normal 34.0-46.0 [facility] Comment on above: Performed By: #### A DIFF, TSHR, BMP, GFR, ANEU, CBC, PBNP #### [address] [address] Hgb 12.7 G/dL Normal 12.0-16.0 [facility] Comment on above: Performed By: #### A DIFF, TSHR, BMP, GFR, ANEU, CBC, PBNP #### [address] [address] MCH (RBC) [Entitic mass] 32.5 pg Normal 27.0-33.0 [facility] Comment on above: Performed By: #### A DIFF, TSHR, BMP, GFR, ANEU, CBC, PBNP #### [address] [address] MCHC 33.9 G/dL Normal 32.0-36.0 [facility] Comment on above: Performed By: #### A DIFF, TSHR, BMP, GFR, ANEU, CBC, PBNP #### [address] [address] MCV (RBC) [Entitic vol] 95.9 fL Normal 80.0-99.0 [facility] Comment on above: Performed By: #### A DIFF, TSHR, BMP, GFR, ANEU, CBC, PBNP #### [address] [address] Platelet 182 10 3/mcL Normal 150-450 [facility] Comment on above: Performed By: #### A DIFF, TSHR, BMP, GFR, ANEU, CBC, PBNP #### [address] [place], [place] [address] Platelet mean volume (Bld) [Entitic vol] 10.3 fL Normal 6.6-10.5 [facility] Comment on above: Performed By: #### A DIFF, TSHR, BMP, GFR, ANEU, CBC, PBNP #### [address] [place] [address] RBC 3.90 10 6/mcL Low 4.10-5.30 [facility] Comment on above: Performed By: #### A DIFF, TSHR, BMP, GFR, ANEU, CBC, PBNP #### [address] [place] [address] WBC 7.2 10 3/mcL Normal 4.5-10.8 [facility] Comment on above: Performed By: #### A DIFF, TSHR, BMP, GFR, ANEU, CBC, PBNP #### [place] [address] LABORATORYOrdered By: SYSTEM SYSTEM on 10-11-2024 Basophils (Bld) [#/Vol] 0.0 103/mcL Normal 0.0 - 0.2 10^3/mcL AO Workflow SS Basophils/100 WBC (Bld) 0.6 % Normal 0.0 - 2.5 % AO Workflow SS Calcium [Mass/Vol] 9.4 mg/dL Normal 8.4 - 10. 2 mg/dL AO ADM SS Chloride [Moles/Vol] 106 mmol/L Normal 98 - 107 mmol/L AO ADM SS CO2 [Moles/Vol] 25 mmol/L Normal 22 - 29 mmol/L AO ADM SS Creatinine [Mass/Vol] 0.85 mg/dL Normal 0.55 - 1.02 mg/dL AO ADM SS Comment on above: Interpretive Data: T esting performed on Siemens Dimension EXL analyzer using a modified kinetic Serafin technique. Electrolyte Balance 13.0 mEq/L Normal 4.0 - 15 .0 mEq/L AO ADM SS Eosinophil, Absolute 0.4 103/mcL Normal 0.0 - 0.7 10^3/mcL AO Workflow SS Eosinophils/100 WBC (Bld) 5.7 % Normal 0.0 - 7.0 % AO Workflow SS Erythrocyte distribution width (RBC) [Ratio] 12.9 % Normal 11.5 - 15.5 % AO Workflow SS GFR/1.73 sq M.predicted among blacks MDRD (S/P/Bld) [Vol rate/Area] 83 ml/min/1.73sqm Invalid Interpretation Code AO Chemistry S Comment on above: Interpretive Data: GFR Population mean for , Non- Americans Ages 20-29 = 116 mL/min/1.73 sq.m. Ages 30-39 = 107 mL/min/1.73 sq.m. Ages 40-49 = 99 mL/min/1.73 sq.m. Ages 50-59 = 93 mL/min/1.73 sq.m. Ages 60-69 = 85 mL/min/1.73 sq.m. Ages 70+ = 75 mL/min/1.73 sq.m. Chronic Kidney Disease: Less than 60 mL/min/1.73 square meters End Stage Renal Disease: Less than 15 mL/min/1.73 square meters GFR/1.73 sq M.predicted among non-blacks MDRD (S/P/Bld) [Vol rate/Area] 68 ml/min/1.73sqm Invalid Interpretation Code AO Chemistry S Comment on above: Interpretive Data: GFR Population mean for , Non- Americans Ages 20-29 = 116 mL/min/1.73 sq.m. Ages 30-39 = 107 mL/min/1.73 sq.m. Ages 40-49 = 99 mL/min/1.73 sq.m. Ages 50-59 = 93 mL/min/1.73 sq.m. Ages 60-69 = 85 mL/min/1.73 sq.m. Ages 70+ = 75 mL/min/1.73 sq.m. Chronic Kidney Disease: Less than 60 mL/min/1.73 square meters End Stage Renal Disease: Less than 15 mL/min/1.73 square meters Glucose [Mass/Vol] 87 mg/dL Normal 70 - 105 mg/dL AO ADM SS Hematocrit (Bld) [Volume fraction] 37.4 % Normal 34.0 - 46.0 % AO Workflow SS Hemoglobin (Bld) [Mass/Vol] 12.7 G/dL Normal 12.0 - 16.0 G/dL AO Workflow SS Lymphocytes (Bld) [#/Vol] 2.1 103/mcL Normal 0.9 - 4.3 10^3/mcL AO Workflow SS Lymphocytes/100 WBC (Bld) 29.1 % Normal 20.0 - 40.0 % AO Workflow SS MCH (RBC) [Entitic mass] 32.5 pg Normal 27.0 - 33.0 pg AO Workflow SS MCHC 33.9 G/dL Normal 32.0 - 36.0 G/dL AO Workflow SS MCV (RBC) [Entitic vol] 95.9 fL Normal 80.0 - 99.0 fL AO Workflow SS Monocytes (Bld) [#/Vol] 0.5 103/mcL Normal 0.1 - 1.4 10^3/mcL AO Workflow SS Monocytes/100 WBC (Bld) 6.5 % Normal 2.0 - 13.0 % AO Workflow SS Natriuretic peptide.B prohormone N-Terminal [Mass/Vol] 1323 pg/mL High 0 - 125 pg/mL AO ADM SS Comment on above: Interpretive Data: N T-proBNP results of less than 300 pg/mL effectively rules out acute congestive heart failure with 99% negative predictive value. Neutrophils (Bld) [#/Vol] 4.2 103/mcL Normal 2.3 - 8.1 10^3/mcL AO Workflow SS Neutrophils/100 WBC (Bld) 58.1 % Normal 50.0 - 75.0 % AO Workflow SS Platelet mean volume (Bld) [Entitic vol] 10.3 fL Normal 6.6 - 10.5 fL AO Workflow SS Platelets (Bld) [#/Vol] 182 103/mcL Normal 150 - 450 10^3/mcL AO Workflow SS Potassium [Moles/Vol] 4.4 mmol/L Normal 3.5 - 5.1 mmol/L AO ADM SS RBC (Bld) [#/Vol] 3.90 106/mcL Low 4.10 - 5.3 0 10^6/mcL AO Workflow SS Sodium [Moles/Vol] 144 mmol/L Normal 136 - 145 mmol/L AO ADM SS TSH Qn 3.61 m[IU]/L Normal 0.36 - 3.74 mcIU/mL AO ADM SS Urea nitrogen [Mass/Vol] 16 mg/dL Normal 7 - 18 mg/dL AO ADM SS Urea nitrogen/Creatinine [Mass ratio] 19 ratio Normal 7 - 27 ratio AO ADM SS WBC (Bld) [#/Vol] 7.2 103/mcL Normal 4.5 - 10.8 10^3/mcL AO Workflow SS PBNPon 10-11-2024 Natriuretic peptide B (Bld) [Mass/Vol] 1323 pg/mL High 0-125 [facility] Comment on above: Result Comment: NT-p roBNP results of less than 300 pg/mL effectively rules out acute congestive heart failure with 99% negative predictive value. Performed By: #### A DIFF, TSHR, BMP, GFR, ANEU, CBC, PBNP #### [address] [address] SCRN MAMM (CAD)W/ANTHONY BILATo n 10-11-2024 SCRN MAMM (CAD)W/ANTHONY BILAT Normal [facility] TSHRon 10-11-2024 TSH Qn 3.61 m[IU]/L Normal 0.36-3.74 [facility] Comment on above: Performed By: #### A DIFF, TSHR, BMP, GFR, ANEU, CBC, PBNP #### [address] [address] HFPon 09-06-2024 Bili Indirect 0.5 mg/dL Normal [facility] Comment on above: Performed By: #### G FR, BMP #### [address] [address] Albumin Level 4.2 G/dL Normal 3.5-5.0 [facility] Comment on above: Performed By: #### G FR, BMP #### [address] [address] Albumin/Globulin [Mass ratio] 1.5 {ratio} Normal 1.1-2.5 [facility] Comment on above: Performed By: #### G FR, BMP #### [address] [address] ALP [Catalytic activity/Vol] 93 U/L Normal 40-135 [facility] Comment on above: Performed By: #### G , BMP #### [place] [address] ALT [Catalytic activity/Vol] 24 U/L Normal 14-59 [facility] Comment on above: Performed By: #### G , BMP #### [place] [address] AST [Catalytic activity/Vol] 15 U/L Normal 10-40 [facility] Comment on above: Performed By: #### G , BMP #### [place] [address] Bili Direct 0.1 mg/dL Normal 0.0-0.2 [facility] Comment on above: Result Comment: Use of this assay is not recommended for patients undergoing treatment with eltrombopag due to the potential for falsely elevated results. Performed By: #### Armando MERCADO, BMP #### [place] [address] Bili Total 0.6 mg/dL Normal 0.2-1.0 [facility] Comment on above: Result Comment: Use of this assay is not recommended for patients undergoing treatment with eltrombopag due to the potential for falsely elevated results. Performed By: #### Armando MERCADO, BMP #### [place] [id number] Globulin 2.8 G/dL Normal [facility] Comment on above: Performed By: #### Armando MERCADO, BMP #### [place] [id number] Total Protein 7.0 G/dL Normal 6.4-8.2 [facility] Comment on above: Performed By: #### Armando MERCADO, BMP #### [place] [id number] LABORATORYOrdered By: SYSTEM SYSTEM on 09-06-2024 Albumin BCP dye [Mass/Vol] 4.2 G/dL Normal 3.5 - 5.0 G/dL AO ADM SS Albumin/Globulin [Mass ratio] 1.5 {ratio} Normal 1.1 - 2.5 ratio AO ADM SS ALP [Catalytic activity/Vol] 93 U/L Normal 40 - 135 U/L AO ADM SS ALT With P-5'-P [Catalytic activity/Vol] 24 U/L Normal 14 - 59 U/L AO ADM SS AST With P-5'-P [Catalytic activity/Vol] 15 U/L Normal 10 - 40 U/L AO ADM SS Bilirubin [Mass/Vol] 0.6 mg/dL Normal 0.2 - 1.0 mg/dL AO ADM SS Comment on above: Interpretive Data: U se of this assay is not recommended for patients undergoing treatment with eltrombopag due to the potential for falsely elevated results. Bilirubin.direct [Mass/Vol] 0.1 mg/dL Normal 0.0 - 0.2 mg/dL AO ADM SS Comment on above: Interpretive Data: U se of this assay is not recommended for patients undergoing treatment with eltrombopag due to the potential for falsely elevated results. Bilirubin.direct [Mass/Vol] 0.5 mg/dL Invalid Interpretation Code AO Chemistry S Globulin 2.8 G/dL Invalid Interpretation Code AO ADM SS Protein [Mass/Vol] 7.0 G/dL Normal 6.4 - 8.2 G/dL AO ADM SS Neurology Visit Reporton Neurology Visit Report Normal [facility] Cardiology Visit Reporton Cardiology Visit Report Normal [facility] Basic Metabolic Profile (BMP )on 08-05-2024 BUN Normal 7-18 [facility] Comment on above: Result Comment: Canc elled via OM: Order cancelled - Patient discharged Performed By: #### L 500.2500, L100.0100 ####[facility] [address] [place], [address] BUN/CRE Normal 10-20 [facility] Comment on above: Result Comment: Canc elled via OM: Order cancelled - Patient discharged Performed By: #### L 500.2500, L100.0100 ####[facility] [address] [place], [address] CA,Total Normal 8.5-10.1 [facility] Comment on above: Result Comment: Canc elled via OM: Order cancelled - Patient discharged Performed By: #### L 500.2500, L100.0100 ####[facility] [address] [place], [address] CL Normal 98-107 [facility] Comment on above: Result Comment: Canc elled via OM: Order cancelled - Patient discharged Performed By: #### L 500.2500, L100.0100 ####[facility] [address] [place], [address] CO2 Normal 21.0-32.0 [facility] Comment on above: Result Comment: Canc elled via OM: Order cancelled - Patient discharged Performed By: #### L 500.2500, L100.0100 ####[facility] [address] [place], [address] CREAT,SERUM Normal 0.55-1.02 [facility] Comment on above: Result Comment: Canc elled via OM: Order cancelled - Patient discharged Performed By: #### L 500.2500, L100.0100 ####[facility] [address] [place], [address] EST GFR Normal >60 [facility] Comment on above: Result Comment: Canc elled via OM: Order cancelled - Patient discharged Performed By: #### L 500.2500, L100.0100 ####[facility] [address] [place], [address] EST GFR - AA Normal >60 [facility] Comment on above: Result Comment: Canc elled via OM: Order cancelled - Patient discharged Performed By: #### L 500.2500, L100.0100 ####[facility] [address] [place], [address] GAP Normal 5-15 [facility] Comment on above: Result Comment: Canc elled via OM: Order cancelled - Patient discharged Performed By: #### L 500.2500, L100.0100 ####[facility] [address] [place], [address] GLU Normal 74-106 [facility] Comment on above: Result Comment: Canc elled via OM: Order cancelled - Patient discharged Performed By: #### L 500.2500, L100.0100 ####[facility] [address] [place], [address] Potassium Normal 3.5-5.1 [facility] Comment on above: Result Comment: Canc elled via OM: Order cancelled - Patient discharged Performed By: #### L 500.2500, L100.0100 ####[facility] [address] [place], [address] Basic Metabolic Profile (BMP) Normal 136-145 [facility] Comment on above: Result Comment: Canc elled via OM: Order cancelled - Patient discharged Performed By: #### L 500.2500, L100.0100 ####[facility] [address] [place], [address] CBC W/Diff, Automatedon 07-09 Absolute Neut Normal 2.0-7.7 [facility] Comment on above: Result Comment: Canc elled via OM: Order cancelled - Patient discharged Performed By: #### L 500.2500, L100.0100 ####[facility] [address] [place], [address] HCT Normal 37-47 [facility] Comment on above: Result Comment: Canc elled via OM: Order cancelled - Patient discharged Performed By: #### L 500.2500, L100.0100 ####[facility] [address] [place], [address] HGB Normal 12.0-15.0 [facility] Comment on above: Result Comment: Canc elled via OM: Order cancelled - Patient discharged Performed By: #### L 500.2500, L100.0100 ####[facility] [address] [place], [address] MCH Normal 27.0-32.0 [facility] Comment on above: Result Comment: Canc elled via OM: Order cancelled - Patient discharged Performed By: #### L 500.2500, L100.0100 ####[facility] [address] [place], [address] MCHC Normal 32-36 [facility] Comment on above: Result Comment: Canc elled via OM: Order cancelled - Patient discharged Performed By: #### L 500.2500, L100.0100 ####[facility] [address] [place], [address] MCV Normal 81-99 [facility] Comment on above: Result Comment: Canc elled via OM: Order cancelled - Patient discharged Performed By: #### L 500.2500, L100.0100 ####[facility] [address] [place], [address] NEUT% Normal 47-70 [facility] Comment on above: Result Comment: Canc elled via OM: Order cancelled - Patient discharged Performed By: #### L 500.2500, L100.0100 ####[facility] [address] [place], [address] PLT Normal 150-450 [facility] Comment on above: Result Comment: Canc elled via OM: Order cancelled - Patient discharged Performed By: #### L 500.2500, L100.0100 ####[facility] [address] [place], [address] RBC Normal 4.2-5.4 [facility] Comment on above: Result Comment: Canc elled via OM: Order cancelled - Patient discharged Performed By: #### L 500.2500, L100.0100 ####[facility] [address] [place], [address] RDW CV Normal 11.6-14.6 [facility] Comment on above: Result Comment: Canc elled via OM: Order cancelled - Patient discharged Performed By: #### L 500.2500, L100.0100 ####[facility] [address] [place], [address] RDW SD Normal 35.1-43.9 [facility] Comment on above: Result Comment: Canc elled via OM: Order cancelled - Patient discharged Performed By: #### L 500.2500, L100.0100 ####[facility] [address] [place], [address] WBC Normal 4.4-11.0 [facility] Comment on above: Result Comment: Canc elled via OM: Order cancelled - Patient discharged Performed By: #### L 500.2500, L100.0100 ####[facility] [address] [place], [address] Basic Metabolic Profile (BMP )on 08-04-2024 BUN Normal 7-18 [facility] Comment on above: Result Comment: Canc elled via OM: Order cancelled - Patient discharged Performed By: #### L 500.2500, L100.0100 ####[facility] [address] [place], [address] BUN/CRE Normal 10-20 [facility] Comment on above: Result Comment: Canc elled via OM: Order cancelled - Patient discharged Performed By: #### L 500.2500, L100.0100 ####[facility] [address] [place], [address] CA,Total Normal 8.5-10.1 [facility] Comment on above: Result Comment: Canc elled via OM: Order cancelled - Patient discharged Performed By: #### L 500.2500, L100.0100 ####[facility] [address] [place], [address] CL Normal 98-107 [facility] Comment on above: Result Comment: Canc elled via OM: Order cancelled - Patient discharged Performed By: #### L 500.2500, L100.0100 ####[facility] [address] [place], [address] CO2 Normal 21.0-32.0 [facility] Comment on above: Result Comment: Canc elled via OM: Order cancelled - Patient discharged Performed By: #### L 500.2500, L100.0100 ####[facility] [address] [place], [address] CREAT,SERUM Normal 0.55-1.02 [facility] Comment on above: Result Comment: Canc elled via OM: Order cancelled - Patient discharged Performed By: #### L 500.2500, L100.0100 ####[facility] [address] [place], [address] EST GFR Normal >60 [facility] Comment on above: Result Comment: Canc elled via OM: Order cancelled - Patient discharged Performed By: #### L 500.2500, L100.0100 ####[facility] [address] [place], [address] EST GFR - AA Normal >60 [facility] Comment on above: Result Comment: Canc elled via OM: Order cancelled - Patient discharged Performed By: #### L 500.2500, L100.0100 ####[facility] [address] [place], [address] GAP Normal 5-15 [facility] Comment on above: Result Comment: Canc elled via OM: Order cancelled - Patient discharged Performed By: #### L 500.2500, L100.0100 ####[facility] [address] [place], [address] GLU Normal 74-106 [facility] Comment on above: Result Comment: Canc elled via OM: Order cancelled - Patient discharged Performed By: #### L 500.2500, L100.0100 ####[facility] [address] [place], [address] Potassium Normal 3.5-5.1 [facility] Comment on above: Result Comment: Canc elled via OM: Order cancelled - Patient discharged Performed By: #### L 500.2500, L100.0100 ####[facility] [address] [place], [address] Basic Metabolic Profile (BMP) Normal 136-145 [facility] Comment on above: Result Comment: Canc elled via OM: Order cancelled - Patient discharged Performed By: #### L 500.2500, L100.0100 ####[facility] [address] [place], [address] CBC W/Diff, Automatedon 07-09 Absolute Neut Normal 2.0-7.7 [facility] Comment on above: Result Comment: Canc elled via OM: Order cancelled - Patient discharged Performed By: #### L 500.2500, L100.0100 ####[facility] [address] [place], [address] HCT Normal 37-47 [facility] Comment on above: Result Comment: Canc elled via OM: Order cancelled - Patient discharged Performed By: #### L 500.2500, L100.0100 ####[facility] [address] [place], [address] HGB Normal 12.0-15.0 [facility] Comment on above: Result Comment: Canc elled via OM: Order cancelled - Patient discharged Performed By: #### L 500.2500, L100.0100 ####[facility] [address] [place], [address] MCH Normal 27.0-32.0 [facility] Comment on above: Result Comment: Canc elled via OM: Order cancelled - Patient discharged Performed By: #### L 500.2500, L100.0100 ####[facility] [address] [place], [address] MCHC Normal 32-36 [facility] Comment on above: Result Comment: Canc elled via OM: Order cancelled - Patient discharged Performed By: #### L 500.2500, L100.0100 ####[facility] [address] [place], [address] MCV Normal 81-99 [facility] Comment on above: Result Comment: Canc elled via OM: Order cancelled - Patient discharged Performed By: #### L 500.2500, L100.0100 ####[facility] [address] [place], [address] NEUT% Normal 47-70 [facility] Comment on above: Result Comment: Canc elled via OM: Order cancelled - Patient discharged Performed By: #### L 500.2500, L100.0100 ####[facility] [address] [place], [address] PLT Normal 150-450 [facility] Comment on above: Result Comment: Canc elled via OM: Order cancelled - Patient discharged Performed By: #### L 500.2500, L100.0100 ####[facility] [address] [place], [address] RBC Normal 4.2-5.4 [facility] Comment on above: Result Comment: Canc elled via OM: Order cancelled - Patient discharged Performed By: #### L 500.2500, L100.0100 ####[facility] [address] [place], [address] RDW CV Normal 11.6-14.6 [facility] Comment on above: Result Comment: Canc elled via OM: Order cancelled - Patient discharged Performed By: #### L 500.2500, L100.0100 ####[facility] [address] [place], [address] RDW SD Normal 35.1-43.9 [facility] Comment on above: Result Comment: Canc elled via OM: Order cancelled - Patient discharged Performed By: #### L 500.2500, L100.0100 ####[facility] [address] [place], [address] WBC Normal 4.4-11.0 [facility] Comment on above: Result Comment: Canc elled via OM: Order cancelled - Patient discharged Performed By: #### L 500.2500, L100.0100 ####[facility] [address] [place], [address] Basic Metabolic Profile (BMP )on 08-03-2024 BUN Normal 7-18 [facility] Comment on above: Result Comment: Canc elled via OM: Order cancelled - Patient discharged Performed By: #### L 500.2500, L100.0100 ####[facility] [address] [place], [address] BUN/CRE Normal 10-20 [facility] Comment on above: Result Comment: Canc elled via OM: Order cancelled - Patient discharged Performed By: #### L 500.2500, L100.0100 ####[facility] [address] [place], [address] CA,Total Normal 8.5-10.1 [facility] Comment on above: Result Comment: Canc elled via OM: Order cancelled - Patient discharged Performed By: #### L 500.2500, L100.0100 ####[facility] [address] [place], [address] CL Normal 98-107 [facility] Comment on above: Result Comment: Canc elled via OM: Order cancelled - Patient discharged Performed By: #### L 500.2500, L100.0100 ####[facility] [address] [place], [address] CO2 Normal 21.0-32.0 [facility] Comment on above: Result Comment: Canc elled via OM: Order cancelled - Patient discharged Performed By: #### L 500.2500, L100.0100 ####[facility] [address] [place], [address] CREAT,SERUM Normal 0.55-1.02 [facility] Comment on above: Result Comment: Canc elled via OM: Order cancelled - Patient discharged Performed By: #### L 500.2500, L100.0100 ####[facility] [address] [place], [address] EST GFR Normal >60 [facility] Comment on above: Result Comment: Canc elled via OM: Order cancelled - Patient discharged Performed By: #### L 500.2500, L100.0100 ####[facility] [address] [place], [address] EST GFR - AA Normal >60 [facility] Comment on above: Result Comment: Canc elled via OM: Order cancelled - Patient discharged Performed By: #### L 500.2500, L100.0100 ####[facility] [address] [place], [address] GAP Normal 5-15 [facility] Comment on above: Result Comment: Canc elled via OM: Order cancelled - Patient discharged Performed By: #### L 500.2500, L100.0100 ####[facility] [address] [place], [address] GLU Normal 74-106 [facility] Comment on above: Result Comment: Canc elled via OM: Order cancelled - Patient discharged Performed By: #### L 500.2500, L100.0100 ####[facility] [address] [place], [address] Potassium Normal 3.5-5.1 [facility] Comment on above: Result Comment: Canc elled via OM: Order cancelled - Patient discharged Performed By: #### L 500.2500, L100.0100 ####[facility] [address] [place], [address] Basic Metabolic Profile (BMP) Normal 136-145 [facility] Comment on above: Result Comment: Canc elled via OM: Order cancelled - Patient discharged Performed By: #### L 500.2500, L100.0100 ####[facility] [address] [place], [address] CBC W/Diff, Automatedon - Absolute Neut Normal 2.0-7.7 [facility] Comment on above: Result Comment: Canc elled via OM: Order cancelled - Patient discharged Performed By: #### L 500.2500, L100.0100 ####[facility] [address] [place], [address] HCT Normal 37-47 [facility] Comment on above: Result Comment: Canc elled via OM: Order cancelled - Patient discharged Performed By: #### L 500.2500, L100.0100 ####[facility] [address] [place], [address] HGB Normal 12.0-15.0 [facility] Comment on above: Result Comment: Canc elled via OM: Order cancelled - Patient discharged Performed By: #### L 500.2500, L100.0100 ####[facility] [address] [place], [address] MCH Normal 27.0-32.0 [facility] Comment on above: Result Comment: Canc elled via OM: Order cancelled - Patient discharged Performed By: #### L 500.2500, L100.0100 ####[facility] [address] [place], [address] MCHC Normal 32-36 [facility] Comment on above: Result Comment: Canc elled via OM: Order cancelled - Patient discharged Performed By: #### L 500.2500, L100.0100 ####[facility] [address] [place], [address] MCV Normal 81-99 [facility] Comment on above: Result Comment: Canc elled via OM: Order cancelled - Patient discharged Performed By: #### L 500.2500, L100.0100 ####[facility] [address] [place], [address] NEUT% Normal 47-70 [facility] Comment on above: Result Comment: Canc elled via OM: Order cancelled - Patient discharged Performed By: #### L 500.2500, L100.0100 ####[facility] [address] [place], [address] PLT Normal 150-450 [facility] Comment on above: Result Comment: Canc elled via OM: Order cancelled - Patient discharged Performed By: #### L 500.2500, L100.0100 ####[facility] [address] [place], [address] RBC Normal 4.2-5.4 [facility] Comment on above: Result Comment: Canc elled via OM: Order cancelled - Patient discharged Performed By: #### L 500.2500, L100.0100 ####[facility] [address] [place], [address] RDW CV Normal 11.6-14.6 [facility] Comment on above: Result Comment: Canc elled via OM: Order cancelled - Patient discharged Performed By: #### L 500.2500, L100.0100 ####[facility] [address] [place], [address] RDW SD Normal 35.1-43.9 [facility] Comment on above: Result Comment: Canc elled via OM: Order cancelled - Patient discharged Performed By: #### L 500.2500, L100.0100 ####[facility] [address] [place], [address] WBC Normal 4.4-11.0 [facility] Comment on above: Result Comment: Canc elled via OM: Order cancelled - Patient discharged Performed By: #### L 500.2500, L100.0100 ####[facility] [address] [place], [address] Basic Metabolic Profile (BMP )on 08-02-2024 BUN Normal 7-18 [facility] Comment on above: Result Comment: Canc elled via OM: Order cancelled - Patient discharged Performed By: #### L 500.2500, L100.0100 ####[facility] [address] [place], [address] BUN/CRE Normal 10-20 [facility] Comment on above: Result Comment: Canc elled via OM: Order cancelled - Patient discharged Performed By: #### L 500.2500, L100.0100 ####[facility] [address] [place], [address] CA,Total Normal 8.5-10.1 [facility] Comment on above: Result Comment: Canc elled via OM: Order cancelled - Patient discharged Performed By: #### L 500.2500, L100.0100 ####[facility] [address] [place], [address] CL Normal 98-107 [facility] Comment on above: Result Comment: Canc elled via OM: Order cancelled - Patient discharged Performed By: #### L 500.2500, L100.0100 ####[facility] [address] [place], [address] CO2 Normal 21.0-32.0 [facility] Comment on above: Result Comment: Canc elled via OM: Order cancelled - Patient discharged Performed By: #### L 500.2500, L100.0100 ####[facility] [address] [place], [address] CREAT,SERUM Normal 0.55-1.02 [facility] Comment on above: Result Comment: Canc elled via OM: Order cancelled - Patient discharged Performed By: #### L 500.2500, L100.0100 ####[facility] [address] [place], [address] EST GFR Normal >60 [facility] Comment on above: Result Comment: Canc elled via OM: Order cancelled - Patient discharged Performed By: #### L 500.2500, L100.0100 ####[facility] [address] [place], [address] EST GFR - AA Normal >60 [facility] Comment on above: Result Comment: Canc elled via OM: Order cancelled - Patient discharged Performed By: #### L 500.2500, L100.0100 ####[facility] [address] [place], [address] GAP Normal 5-15 [facility] Comment on above: Result Comment: Canc elled via OM: Order cancelled - Patient discharged Performed By: #### L 500.2500, L100.0100 ####[facility] [address] [place], [address] GLU Normal 74-106 [facility] Comment on above: Result Comment: Canc elled via OM: Order cancelled - Patient discharged Performed By: #### L 500.2500, L100.0100 ####[facility] [address] [place], [address] Potassium Normal 3.5-5.1 [facility] Comment on above: Result Comment: Canc elled via OM: Order cancelled - Patient discharged Performed By: #### L 500.2500, L100.0100 ####[facility] [address] [place], [address] Basic Metabolic Profile (BMP) Normal 136-145 [facility] Comment on above: Result Comment: Canc elled via OM: Order cancelled - Patient discharged Performed By: #### L 500.2500, L100.0100 ####[facility] [address] [place], [address] CBC W/Diff, Automatedon - Absolute Neut Normal 2.0-7.7 [facility] Comment on above: Result Comment: Canc elled via OM: Order cancelled - Patient discharged Performed By: #### L 500.2500, L100.0100 ####[facility] [address] [place], [address] HCT Normal 37-47 [facility] Comment on above: Result Comment: Canc elled via OM: Order cancelled - Patient discharged Performed By: #### L 500.2500, L100.0100 ####[facility] [address] [place], [address] HGB Normal 12.0-15.0 [facility] Comment on above: Result Comment: Canc elled via OM: Order cancelled - Patient discharged Performed By: #### L 500.2500, L100.0100 ####[facility] [address] [place], [address] MCH Normal 27.0-32.0 [facility] Comment on above: Result Comment: Canc elled via OM: Order cancelled - Patient discharged Performed By: #### L 500.2500, L100.0100 ####[facility] [address] [place], [address] MCHC Normal 32-36 [facility] Comment on above: Result Comment: Canc elled via OM: Order cancelled - Patient discharged Performed By: #### L 500.2500, L100.0100 ####[facility] [address] [place], [address] MCV Normal 81-99 [facility] Comment on above: Result Comment: Canc elled via OM: Order cancelled - Patient discharged Performed By: #### L 500.2500, L100.0100 ####[facility] [address] [place], [address] NEUT% Normal 47-70 [facility] Comment on above: Result Comment: Canc elled via OM: Order cancelled - Patient discharged Performed By: #### L 500.2500, L100.0100 ####[facility] [address] [place], [address] PLT Normal 150-450 [facility] Comment on above: Result Comment: Canc elled via OM: Order cancelled - Patient discharged Performed By: #### L 500.2500, L100.0100 ####[facility] [address] [place], [address] RBC Normal 4.2-5.4 [facility] Comment on above: Result Comment: Canc elled via OM: Order cancelled - Patient discharged Performed By: #### L 500.2500, L100.0100 ####[facility] [address] [place], [address] RDW CV Normal 11.6-14.6 [facility] Comment on above: Result Comment: Canc elled via OM: Order cancelled - Patient discharged Performed By: #### L 500.2500, L100.0100 ####[facility] [address] [place], [address] RDW SD Normal 35.1-43.9 [facility] Comment on above: Result Comment: Canc elled via OM: Order cancelled - Patient discharged Performed By: #### L 500.2500, L100.0100 ####[facility] [address] [place], [address] WBC Normal 4.4-11.0 [facility] Comment on above: Result Comment: Canc elled via OM: Order cancelled - Patient discharged Performed By: #### L 500.2500, L100.0100 ####[facility] [address] [place], [address] Basic Metabolic Profile (BMP )on 08-01-2024 BUN Normal 7-18 [facility] Comment on above: Result Comment: Canc elled via OM: Order cancelled - Patient discharged Performed By: #### L 100.0100, L500.2500 ####[facility] [address] [place], [address] BUN/CRE Normal 10-20 [facility] Comment on above: Result Comment: Canc elled via OM: Order cancelled - Patient discharged Performed By: #### L 100.0100, L500.2500 ####[facility] [address] [place], [address] CA,Total Normal 8.5-10.1 [facility] Comment on above: Result Comment: Canc elled via OM: Order cancelled - Patient discharged Performed By: #### L 100.0100, L500.2500 ####[facility] [address] [place], [address] CL Normal 98-107 [facility] Comment on above: Result Comment: Canc elled via OM: Order cancelled - Patient discharged Performed By: #### L 100.0100, L500.2500 ####[facility] [address] [place], [address] CO2 Normal 21.0-32.0 [facility] Comment on above: Result Comment: Canc elled via OM: Order cancelled - Patient discharged Performed By: #### L 100.0100, L500.2500 ####[facility] [address] [place], [address] CREAT,SERUM Normal 0.55-1.02 [facility] Comment on above: Result Comment: Canc elled via OM: Order cancelled - Patient discharged Performed By: #### L 100.0100, L500.2500 ####[facility] [address] [place], [address] EST GFR Normal >60 [facility] Comment on above: Result Comment: Canc elled via OM: Order cancelled - Patient discharged Performed By: #### L 100.0100, L500.2500 ####[facility] [address] [place], [address] EST GFR - AA Normal >60 [facility] Comment on above: Result Comment: Canc elled via OM: Order cancelled - Patient discharged Performed By: #### L 100.0100, L500.2500 ####[facility] [address] [place], [address] GAP Normal 5-15 [facility] Comment on above: Result Comment: Canc elled via OM: Order cancelled - Patient discharged Performed By: #### L 100.0100, L500.2500 ####[facility] [address] [place], [address] GLU Normal 74-106 [facility] Comment on above: Result Comment: Canc elled via OM: Order cancelled - Patient discharged Performed By: #### L 100.0100, L500.2500 ####[facility] [address] [place], [address] Potassium Normal 3.5-5.1 [facility] Comment on above: Result Comment: Canc elled via OM: Order cancelled - Patient discharged Performed By: #### L 100.0100, L500.2500 ####[facility] [address] [place], [address] Basic Metabolic Profile (BMP) Normal 136-145 [facility] Comment on above: Result Comment: Canc elled via OM: Order cancelled - Patient discharged Performed By: #### L 100.0100, L500.2500 ####[facility] [address] [place], [address] CBC W/Diff, Automatedon 09-2 Absolute Neut Normal 2.0-7.7 [facility] Comment on above: Result Comment: Canc elled via OM: Order cancelled - Patient discharged Performed By: #### L 100.0100, L500.2500 ####[facility] [address] [place], [address] HCT Normal 37-47 [facility] Comment on above: Result Comment: Canc elled via OM: Order cancelled - Patient discharged Performed By: #### L 100.0100, L500.2500 ####[facility] [address] [place], [address] HGB Normal 12.0-15.0 [facility] [facility] Comment on [facility]: Result Comment: Canc elled via OM: Order cancelled - Patient discharged Performed By: #### L 100.0100, L500.2500 ####[facility] [address] [place], [address] MCH Normal 27.0-32.0 [facility] Comment on above: Result Comment: Canc elled via OM: Order cancelled - Patient discharged Performed By: #### L 100.0100, L500.2500 ####[facility] [address] [place], [address] MCHC Normal 32-36 [facility] Comment on above: Result Comment: Canc elled via OM: Order cancelled - Patient discharged Performed By: #### L 100.0100, L500.2500 ####[facility] [address] [place], [address] MCV Normal 81-99 [facility] Comment on above: Result Comment: Canc elled via OM: Order cancelled - Patient discharged Performed By: #### L 100.0100, L500.2500 ####[facility] [address] [place], [address] NEUT% Normal 47-70 [facility] Comment on above: Result Comment: Canc elled via OM: Order cancelled - Patient discharged Performed By: #### L 100.0100, L500.2500 ####[facility] [address] [place], [address] PLT Normal 150-450 [facility] Comment on above: Result Comment: Canc elled via OM: Order cancelled - Patient discharged Performed By: #### L 100.0100, L500.2500 ####[facility] [address] [place], [address] RBC Normal 4.2-5.4 [facility] Comment on above: Result Comment: Canc elled via OM: Order cancelled - Patient discharged Performed By: #### L 100.0100, L500.2500 ####[facility] [address] [place], [address] RDW CV Normal 11.6-14.6 [facility] Comment on above: Result Comment: Canc elled via OM: Order cancelled - Patient discharged Performed By: #### L 100.0100, L500.2500 ####[facility] [address] [place], [address] RDW SD Normal 35.1-43.9 [facility] Comment on above: Result Comment: Canc elled via OM: Order cancelled - Patient discharged Performed By: #### L 100.0100, L500.2500 ####[facility] [address] [place], [address] WBC Normal 4.4-11.0 [facility] Comment on above: Result Comment: Canc elled via OM: Order cancelled - Patient discharged Performed By: #### L 100.0100, L500.2500 ####[facility] [address] [place], [address] Basic Metabolic Profile (BMP )on 07-31-2024 BUN Normal 7-18 [facility] Comment on above: Result Comment: Canc elled via OM: Order cancelled - Patient discharged Performed By: #### L 100.0100, L500.2500 ####[facility] [address] [place], [address] BUN/CRE Normal 10-20 [facility] Comment on above: Result Comment: Canc elled via OM: Order cancelled - Patient discharged Performed By: #### L 100.0100, L500.2500 ####[facility] [address] [place], [address] CA,Total Normal 8.5-10.1 [facility] Comment on above: Result Comment: Canc elled via OM: Order cancelled - Patient discharged Performed By: #### L 100.0100, L500.2500 ####[facility] [address] [place], [address] CL Normal 98-107 [facility] Comment on above: Result Comment: Canc elled via OM: Order cancelled - Patient discharged Performed By: #### L 100.0100, L500.2500 ####[facility] [address] [place], [address] CO2 Normal 21.0-32.0 [facility] Comment on above: Result Comment: Canc elled via OM: Order cancelled - Patient discharged Performed By: #### L 100.0100, L500.2500 ####[facility] [address] [place], [address] CREAT,SERUM Normal 0.55-1.02 [facility] Comment on above: Result Comment: Canc elled via OM: Order cancelled - Patient discharged Performed By: #### L 100.0100, L500.2500 ####[facility] [address] [place], [address] EST GFR Normal >60 [facility] Comment on above: Result Comment: Canc elled via OM: Order cancelled - Patient discharged Performed By: #### L 100.0100, L500.2500 ####[facility] [address] [place], [address] EST GFR - AA Normal >60 [facility] Comment on above: Result Comment: Canc elled via OM: Order cancelled - Patient discharged Performed By: #### L 100.0100, L500.2500 ####[facility] [address] [place], [address] GAP Normal 5-15 [facility] Comment on above: Result Comment: Canc elled via OM: Order cancelled - Patient discharged Performed By: #### L 100.0100, L500.2500 ####[facility] [address] [place], [address] GLU Normal 74-106 [facility] Comment on above: Result Comment: Canc elled via OM: Order cancelled - Patient discharged Performed By: #### L 100.0100, L500.2500 ####[facility] [address] [place], [address] Potassium Normal 3.5-5.1 [facility] Comment on above: Result Comment: Canc elled via OM: Order cancelled - Patient discharged Performed By: #### L 100.0100, L500.2500 ####[facility] [address] [place], [address] Basic Metabolic Profile (BMP) Normal 136-145 [facility] Comment on above: Result Comment: Canc elled via OM: Order cancelled - Patient discharged Performed By: #### L 100.0100, L500.2500 ####[facility] [address] [place], [address] CBC W/Diff, Automatedon 09-2 Absolute Neut Normal 2.0-7.7 [facility] Comment on above: Result Comment: Canc elled via OM: Order cancelled - Patient discharged Performed By: #### L 100.0100, L500.2500 ####[facility] [address] [place], [address] HCT Normal 37-47 [facility] Comment on above: Result Comment: Canc elled via OM: Order cancelled - Patient discharged Performed By: #### L 100.0100, L500.2500 ####[facility] [address] [place], [address] HGB Normal 12.0-15.0 [facility] Comment on above: Result Comment: Canc elled via OM: Order cancelled - Patient discharged Performed By: #### L 100.0100, L500.2500 ####[facility] [address] [place], [address] MCH Normal 27.0-32.0 [facility] Comment on above: Result Comment: Canc elled via OM: Order cancelled - Patient discharged Performed By: #### L 100.0100, L500.2500 ####[facility] [address] [place], [address] MCHC Normal 32-36 [facility] Comment on above: Result Comment: Canc elled via OM: Order cancelled - Patient discharged Performed By: #### L 100.0100, L500.2500 ####[facility] [address] [place], [address] MCV Normal 81-99 [facility] Comment on above: Result Comment: Canc elled via OM: Order cancelled - Patient discharged Performed By: #### L 100.0100, L500.2500 ####[facility] [address] [place], [address] NEUT% Normal 47-70 [facility] Comment on above: Result Comment: Canc elled via OM: Order cancelled - Patient discharged Performed By: #### L 100.0100, L500.2500 ####[facility] [address] [place], [address] PLT Normal 150-450 [facility] Comment on above: Result Comment: Canc elled via OM: Order cancelled - Patient discharged Performed By: #### L 100.0100, L500.2500 ####[facility] [address] [place], [address] RBC Normal 4.2-5.4 [facility] Comment on above: Result Comment: Canc elled via OM: Order cancelled - Patient discharged Performed By: #### L 100.0100, L500.2500 ####[facility] [address] [place], [address] RDW CV Normal 11.6-14.6 [facility] Comment on above: Result Comment: Canc elled via OM: Order cancelled - Patient discharged Performed By: #### L 100.0100, L500.2500 ####[facility] [address] [place], [address] RDW SD Normal 35.1-43.9 [facility] Comment on above: Result Comment: Canc elled via OM: Order cancelled - Patient discharged Performed By: #### L 100.0100, L500.2500 ####[facility] [address] [place], [address] WBC Normal 4.4-11.0 [facility] Comment on above: Result Comment: Canc elled via OM: Order cancelled - Patient discharged Performed By: #### L 100.0100, L500.2500 ####[facility] [address] [place], [address] Basic Metabolic Profile (BMP )on 07-30-2024 BUN Normal 7-18 [facility] Comment on above: Result Comment: Canc elled via OM: Order cancelled - Patient discharged Performed By: #### L 500.2500, L100.0100 ####[facility] [address] [place], [address] BUN/CRE Normal 10-20 [facility] Comment on above: Result Comment: Canc elled via OM: Order cancelled - Patient discharged Performed By: #### L 500.2500, L100.0100 ####[facility] [address] [place], [address] CA,Total Normal 8.5-10.1 [facility] Comment on above: Result Comment: Canc elled via OM: Order cancelled - Patient discharged Performed By: #### L 500.2500, L100.0100 ####[facility] [address] [place], [address] CL Normal 98-107 [facility] Comment on above: Result Comment: Canc elled via OM: Order cancelled - Patient discharged Performed By: #### L 500.2500, L100.0100 ####[facility] [address] [place], [address] CO2 Normal 21.0-32.0 [facility] Comment on above: Result Comment: Canc elled via OM: Order cancelled - Patient discharged Performed By: #### L 500.2500, L100.0100 ####[facility] [address] [place], [address] CREAT,SERUM Normal 0.55-1.02 [facility] Comment on above: Result Comment: Canc elled via OM: Order cancelled - Patient discharged Performed By: #### L 500.2500, L100.0100 ####[facility] [address] [place], [address] EST GFR Normal >60 [facility] Comment on above: Result Comment: Canc elled via OM: Order cancelled - Patient discharged Performed By: #### L 500.2500, L100.0100 ####[facility] [address] [place], [address] EST GFR - AA Normal >60 [facility] Comment on above: Result Comment: Canc elled via OM: Order cancelled - Patient discharged Performed By: #### L 500.2500, L100.0100 ####[facility] [address] [place], [address] GAP Normal 5-15 [facility] Comment on above: Result Comment: Canc elled via OM: Order cancelled - Patient discharged Performed By: #### L 500.2500, L100.0100 ####[facility] [address] [place], [address] GLU Normal 74-106 [facility] Comment on above: Result Comment: Canc elled via OM: Order cancelled - Patient discharged Performed By: #### L 500.2500, L100.0100 ####[facility] [address] [place], [address] Potassium Normal 3.5-5.1 [facility] Comment on above: Result Comment: Canc elled via OM: Order cancelled - Patient discharged Performed By: #### L 500.2500, L100.0100 ####[facility] [address] [place], [address] Basic Metabolic Profile (BMP) Normal 136-145 [facility] Comment on above: Result Comment: Canc elled via OM: Order cancelled - Patient discharged Performed By: #### L 500.2500, L100.0100 ####[facility] [address] [place], [address] CBC W/Diff, Automatedon 09-2 Absolute Neut Normal 2.0-7.7 [facility] Comment on above: Result Comment: Canc elled via OM: Order cancelled - Patient discharged Performed By: #### L 500.2500, L100.0100 ####[facility] [address] [place], [address] HCT Normal 37-47 [facility] Comment on above: Result Comment: Canc elled via OM: Order cancelled - Patient discharged Performed By: #### L 500.2500, L100.0100 ####[facility] [address] [place], [address] HGB Normal 12.0-15.0 [facility] Comment on above: Result Comment: Canc elled via OM: Order cancelled - Patient discharged Performed By: #### L 500.2500, L100.0100 ####[facility] [address] [place], [address] MCH Normal 27.0-32.0 [facility] Comment on above: Result Comment: Canc elled via OM: Order cancelled - Patient discharged Performed By: #### L 500.2500, L100.0100 ####[facility] [address] [place], [address] MCHC Normal 32-36 [facility] Comment on above: Result Comment: Canc elled via OM: Order cancelled - Patient discharged Performed By: #### L 500.2500, L100.0100 ####[facility] [address] [place], [address] MCV Normal 81-99 [facility] Comment on above: Result Comment: Canc elled via OM: Order cancelled - Patient discharged Performed By: #### L 500.2500, L100.0100 ####[facility] [address] [place], [address] NEUT% Normal 47-70 [facility] Comment on above: Result Comment: Canc elled via OM: Order cancelled - Patient discharged Performed By: #### L 500.2500, L100.0100 ####[facility] [address] [place], [address] PLT Normal 150-450 [facility] Comment on above: Result Comment: Canc elled via OM: Order cancelled - Patient discharged Performed By: #### L 500.2500, L100.0100 ####[facility] [address] [place], [address] RBC Normal 4.2-5.4 [facility] Comment on above: Result Comment: Canc elled via OM: Order cancelled - Patient discharged Performed By: #### L 500.2500, L100.0100 ####[facility] [address] [place], [address] RDW CV Normal 11.6-14.6 [facility] Comment on above: Result Comment: Canc elled via OM: Order cancelled - Patient discharged Performed By: #### L 500.2500, L100.0100 ####[facility] [address] [place], [address] RDW SD Normal 35.1-43.9 [facility] Comment on above: Result Comment: Canc elled via OM: Order cancelled - Patient discharged Performed By: #### L 500.2500, L100.0100 ####[facility] [address] [place], [address] WBC Normal 4.4-11.0 [facility] Comment on above: Result Comment: Canc elled via OM: Order cancelled - Patient discharged Performed By: #### L 500.2500, L100.0100 ####[facility] [address] [place], [address] Basic Metabolic Profile (BMP )on 07-29-2024 BUN/CRE 13.2 RATIO Normal 10-20 [facility] Comment on above: Performed By: #### L 500.2500, L100.0100 ####[facility] [address] [place], [address] CA,Total 8.8 mg/dL Normal 8.5-10.1 [facility] Comment on above: Performed By: #### L 500.2500, L100.0100 ####[facility] [address] [place], [address] Chloride [Moles/Vol] 109 mmol/L High 98-107 [facility] Comment on above: Performed By: #### L 500.2500, L100.0100 ####[facility] [address] [place], [address] CO2 [Moles/Vol] 26.0 mmol/L Normal 21.0-32.0 [facility] Comment on above: Performed By: #### L 500.2500, L100.0100 ####[facility] [address] [place], [address] Creatinine [Mass/Vol] 0.68 mg/dL Normal 0.55-1.02 [facility] Comment on above: Result Comment: The validity of the calculated GFR GFRAA in patients over70 years has not been determined. Clinical correlation isessential. Performed By: #### L 500.2500, L100.0100 ####[facility] [address] [place], [address] ECRCL 97.65 ml/min Normal [facility] Comment on above: Performed By: #### L 500.2500, L100.0100 ####[facility] [address] [place], [address] EST GFR - AA 113 mL/min Normal >60 [facility] Comment on above: Result Comment: Afri can Israeli GFR Calc Performed By: #### L 500.2500, L100.0100 ####[facility] [address] [place], [address] GAP 6 Normal 5-15 [facility] Comment on above: Performed By: #### L 500.2500, L100.0100 ####[facility] [address] [place], [address] GFR/1.73 sq M.predicted among non-blacks MDRD (S/P/Bld) [Vol rate/Area] 94 mL/min/{1.73_m2} Normal >60 [facility] Comment on above: Result Comment: Non- GFR Calc Performed By: #### L 500.2500, L100.0100 ####[facility] [address] [place], [address] Glucose [Mass/Vol] 85 mg/dL Normal 74-106 [facility] Comment on above: Performed By: #### L 500.2500, L100.0100 ####[facility] [address] [place], [address] Potassium [Moles/Vol] 3.5 mmol/L Normal 3.5-5.1 [facility] Comment on above: Performed By: #### L 500.2500, L100.0100 ####[facility] [address] [place], [address] Sodium [Moles/Vol] 141 mmol/L Normal 136-145 [facility] Comment on above: Performed By: #### L 500.2500, L100.0100 ####[facility] [address] [place], [address] Urea nitrogen [Mass/Vol] 9 mg/dL Normal 7-18 [facility] Comment on above: Performed By: #### L 500.2500, L100.0100 ####[facility] [address] [place], [address] Brain without Contraston Brain without Contrast Normal [facility] CBC W/Diff, Automatedon 07-09 Absolute Lymph 2.73 X10 3/uL Normal 0.83-4.51 [facility] Comment on above: Performed By: #### L 500.2500, L100.0100 ####[facility] [address] [place], [address] Absolute Neut 2.3 X10 3/uL Normal 2.0-7.7 [facility] Comment on above: Performed By: #### L 500.2500, L100.0100 ####[facility] [address] [place], [address] Basophils/100 WBC (Bld) 0.7 % Normal 0-1 [facility] Comment on above: Performed By: #### L 500.2500, L100.0100 ####[facility] [address] [place], [address] Eosinophils/100 WBC (Bld) 4.2 % Normal 0-5 [facility] Comment on above: Performed By: #### L 500.2500, L100.0100 ####[facility] [address] [place], [address] Erythrocyte distribution width (RBC) [Ratio] 12.0 % Normal 11.6-14.6 [facility] Comment on above: Performed By: #### L 500.2500, L100.0100 ####[facility] [address] [place], [address] Hematocrit (Bld) [Volume fraction] 37.1 % Normal 37-47 [facility] Comment on above: Performed By: #### L 500.2500, L100.0100 ####[facility] [address] [place], [address] Hemoglobin (Bld) [Mass/Vol] 12.6 g/dL Normal 12.0-15.0 [facility] Comment on above: Performed By: #### L 500.2500, L100.0100 ####[facility] [address] [place], [address] IG% 0.200 Normal 0.0-0.9 [facility] Comment on above: Result Comment: IG% - Immature Granulocytes (promyelocytes, myelocytes andmetamyelocytes) > 1% indicates that a LEFT SHIFT is Present. Performed By: #### L 500.2500, L100.0100 ####[facility] [address] [place], [address] Lymphocytes/100 WBC (Bld) 47.7 % High 19-41 [facility] Comment on above: Performed By: #### L 500.2500, L100.0100 ####[facility] [address] [place], [address] MCH (RBC) [Entitic mass] 31.7 pg Normal 27.0-32.0 [facility] Comment on above: Performed By: #### L 500.2500, L100.0100 ####[facility] [address] [place], [address] MCHC (RBC) [Mass/Vol] 34.0 g/dL Normal 32-36 [facility] Comment on above: Performed By: #### L 500.2500, L100.0100 ####[facility] [address] [place], [address] MCV (RBC) [Entitic vol] 93.2 fL Normal 81-99 [facility] Comment on above: Performed By: #### L 500.2500, L100.0100 ####[facility] [address] [place], [address] Monocytes/100 WBC (Bld) 6.6 % Normal 0-10 [facility] Comment on above: Performed By: #### L 500.2500, L100.0100 ####[facility] [address] [place], [address] Neutrophils/100 WBC (Bld) 40.6 % Low 47-70 [facility] Comment on above: Performed By: #### L 500.2500, L100.0100 ####[facility] [address] [place], [address] Nucleated RBC (Bld) [#/Vol] 0 10*3/uL Normal 0-5 [facility] Comment on above: Performed By: #### L 500.2500, L100.0100 ####[facility] [address] [place], [address] Platelet mean volume (Bld) [Entitic vol] 11.7 fL Normal 6.2-12.0 [facility] Comment on above: Performed By: #### L 500.2500, L100.0100 ####[facility] [address] [place], [address] Platelets (Bld) [#/Vol] 210 10*3/uL Normal 150-450 [facility] Comment on above: Performed By: #### L 500.2500, L100.0100 ####[facility] [address] [place], [address] RBC (Bld) [#/Vol] 3.98 10*6/uL Low 4.2-5.4 [facility] Comment on above: Performed By: #### L 500.2500, L100.0100 ####[facility] [facility] [address] [place], [address] RDW SD 41.3 fl Normal 35.1-43.9 [facility] Comment on above: Performed By: #### L 500.2500, L100.0100 ####[facility] [address] [place], [address] WBC (Bld) [#/Vol] 5.7 10*3/uL Normal 4.4-11.0 [facility] Comment on above: Performed By: #### L 500.2500, L100.0100 ####[facility] [address] [place], [address] Discharge Instructionon 07-09 Discharge Instruction Normal [facility] 12 Lead EKGon 07-28-2024 12 Lead EKG Normal [facility] Bilirubin, Directon 07-28-20 24 Bilirubin.direct [Mass/Vol] 0.17 mg/dL Normal 0.00-0.30 [facility] Comment on above: Order Comment: Comme nts: [place] prior to [place] panel Performed By: #### L 100.0100, L501.2300, L501.9520, L501.4700, L500.4050, L500.4100, L501.5200 ####[facility] [address] [place], [address] CBC W/Diff, Automatedon 07-09 Absolute Lymph 2.55 X10 3/uL Normal 0.83-4.51 [facility] Comment on above: Performed By: #### L 100.0100, L501.2300, L501.9520, L501.4700, L500.4050, L500.4100, L501.5200 ####[facility] [address] [place], [address] Absolute Neut 1.9 X10 3/uL Low 2.0-7.7 [facility] Comment on above: Performed By: #### L 100.0100, L501.2300, L501.9520, L501.4700, L500.4050, L500.4100, L501.5200 ####[facility] [address] [place], [address] Basophils/100 WBC (Bld) 1.0 % Normal 0-1 [facility] Comment on above: Performed By: #### L 100.0100, L501.2300, L501.9520, L501.4700, L500.4050, L500.4100, L501.5200 ####[facility] [address] [place], [address] Eosinophils/100 WBC (Bld) 4.5 % Normal 0-5 [facility] Comment on above: Performed By: #### L 100.0100, L501.2300, L501.9520, L501.4700, L500.4050, L500.4100, L501.5200 ####[facility] [address] [place], [address] Erythrocyte distribution width (RBC) [Ratio] 12.1 % Normal 11.6-14.6 [facility] Comment on above: Performed By: #### L 100.0100, L501.2300, L501.9520, L501.4700, L500.4050, L500.4100, L501.5200 ####[facility] [address] [place], [place], [phone] Hematocrit (Bld) [Volume fraction] 37.6 % Normal 37-47 [facility] Comment on above: Performed By: #### L 100.0100, L501.2300, L501.9520, L501.4700, L500.4050, L500.4100, L501.5200 ####[facility] [address] [place], [address] Hemoglobin (Bld) [Mass/Vol] 12.7 g/dL Normal 12.0-15.0 [facility] Comment on above: Performed By: #### L 100.0100, L501.2300, L501.9520, L501.4700, L500.4050, L500.4100, L501.5200 ####[facility] [address] [place], [address] IG% 0.400 Normal 0.0-0.9 [facility] Comment on above: Result Comment: IG% - Immature Granulocytes (promyelocytes, myelocytes andmetamyelocytes) > 1% indicates that a LEFT SHIFT is Present. Performed By: #### L 100.0100, L501.2300, L501.9520, L501.4700, L500.4050, L500.4100, L501.5200 ####[facility] [address] [place], [address] Lymphocytes/100 WBC (Bld) 50.1 % High 19-41 [facility] Comment on above: Performed By: #### L 100.0100, L501.2300, L501.9520, L501.4700, L500.4050, L500.4100, L501.5200 ####[facility] [address] [place], [address] MCH (RBC) [Entitic mass] 31.7 pg Normal 27.0-32.0 [facility] Comment on above: Performed By: #### L 100.0100, L501.2300, L501.9520, L501.4700, L500.4050, L500.4100, L501.5200 ####[facility] [address] [place], [address] MCHC (RBC) [Mass/Vol] 33.8 g/dL Normal 32-36 [facility] Comment on above: Performed By: #### L 100.0100, L501.2300, L501.9520, L501.4700, L500.4050, L500.4100, L501.5200 ####[facility] [address] [place], [address] MCV (RBC) [Entitic vol] 93.8 fL Normal 81-99 [facility] Comment on above: Performed By: #### L 100.0100, L501.2300, L501.9520, L501.4700, L500.4050, L500.4100, L501.5200 ####[facility] [address] [place], [address] Monocytes/100 WBC (Bld) 6.9 % Normal 0-10 [facility] Comment on above: Performed By: #### L 100.0100, L501.2300, L501.9520, L501.4700, L500.4050, L500.4100, L501.5200 ####[facility] [address] [place], [address] Neutrophils/100 WBC (Bld) 37.1 % Low 47-70 [facility] Comment on above: Performed By: #### L 100.0100, L501.2300, L501.9520, L501.4700, L500.4050, L500.4100, L501.5200 ####[facility] [address] [place], [address] Nucleated RBC (Bld) [#/Vol] 0 10*3/uL Normal 0-5 [facility] Comment on above: Performed By: #### L 100.0100, L501.2300, L501.9520, L501.4700, L500.4050, L500.4100, L501.5200 ####[facility] [address] [place], [address] Platelet mean volume (Bld) [Entitic vol] 11.4 fL Normal 6.2-12.0 [facility] Comment on above: Performed By: #### L 100.0100, L501.2300, L501.9520, L501.4700, L500.4050, L500.4100, L501.5200 ####[facility] [address] [place], [address] Platelets (Bld) [#/Vol] 213 10*3/uL Normal 150-450 [facility] Comment on above: Performed By: #### L 100.0100, L501.2300, L501.9520, L501.4700, L500.4050, L500.4100, L501.5200 ####[facility] [address] [place], [address] RBC (Bld) [#/Vol] 4.01 10*6/uL Low 4.2-5.4 [facility] Comment on above: Performed By: #### L 100.0100, L501.2300, L501.9520, L501.4700, L500.4050, L500.4100, L501.5200 ####[facility] [address] [place], [address] RDW SD 42.0 fl Normal 35.1-43.9 [facility] Comment on above: Performed By: #### L 100.0100, L501.2300, L501.9520, L501.4700, L500.4050, L500.4100, L501.5200 ####[facility] [address] [place], [place], [phone] WBC (Bld) [#/Vol] 5.1 10*3/uL Normal 4.4-11.0 [facility] Comment on above: Performed By: #### L 100.0100, L501.2300, L501.9520, L501.4700, L500.4050, L500.4100, L501.5200 ####[facility] [address] [place], [address] Comprehensive Metabolic Prof ilon 07-28-2024 Albumin [Mass/Vol] 3.3 g/dL Normal 3.2-5.0 [facility] Comment on above: Order Comment: Comme nts: NPO at [place] prior to lipid panel Performed By: #### L 100.0100, L501.2300, L501.9520, L501.4700, L500.4050, L500.4100, L501.5200 ####[facility] [address] [place], [address] Albumin/Globulin [Mass ratio] 1.2 {ratio} Normal 0.9-2.4 [facility] Comment on above: Order Comment: Comme nts: NPO at [place] prior to lipid panel Performed By: #### L 100.0100, L501.2300, L501.9520, L501.4700, L500.4050, L500.4100, L501.5200 ####[facility] [address] [place], [address] ALK P 68 U/L Normal 45-117 [facility] Comment on above: Order Comment: Comme nts: NPO at [place] prior to lipid panel Performed By: #### L 100.0100, L501.2300, L501.9520, L501.4700, L500.4050, L500.4100, L501.5200 ####[facility] [address] [place], [address] ALT [Catalytic activity/Vol] 12 U/L Low 13-56 [facility] Comment on above: Order Comment: Comme nts: NPO at [place] prior to lipid panel Performed By: #### L 100.0100, L501.2300, L501.9520, L501.4700, L500.4050, L500.4100, L501.5200 ####[facility] [address] [place], [address] AST [Catalytic activity/Vol] 9 U/L Low 15-37 [facility] Comment on above: Order Comment: Comme nts: NPO at [place] prior to lipid panel Performed By: #### L 100.0100, L501.2300, L501.9520, L501.4700, L500.4050, L500.4100, L501.5200 ####[facility] [address] [place], [address] Bilirubin [Mass/Vol] 0.70 mg/dL Normal 0.20-1.00 [facility] Comment on above: Order Comment: Comme nts: NPO at [place] prior to lipid panel Result Comment: For patients on eltrombopag therapy, use of Dimension [place] TBIL is not recommended. Performed By: #### L 100.0100, L501.2300, L501.9520, L501.4700, L500.4050, L500.4100, L501.5200 ####[facility] [address] [place], [address] BUN/CRE 11.7 RATIO Normal 10-20 [facility] Comment on above: Order Comment: Comme nts: NPO at [place] prior to lipid panel Performed By: #### L 100.0100, L501.2300, L501.9520, L501.4700, L500.4050, L500.4100, L501.5200 ####[facility] [address] [place], [address] CA,Total 8.9 mg/dL Normal 8.5-10.1 [facility] Comment on above: Order Comment: Comme nts: NPO at [place] prior to lipid panel Performed By: #### L 100.0100, L501.2300, L501.9520, L501.4700, L500.4050, L500.4100, L501.5200 ####[facility] [address] [place], [address] Chloride [Moles/Vol] 112 mmol/L High 98-107 [facility] Comment on above: Order Comment: Comme nts: NPO at [place] prior to lipid panel Performed By: #### L 100.0100, L501.2300, L501.9520, L501.4700, L500.4050, L500.4100, L501.5200 ####[facility] [address] [place], [address] CO2 [Moles/Vol] 26.0 mmol/L Normal 21.0-32.0 [facility] Comment on above: Order Comment: Comme nts: NPO at [place] prior to lipid panel Performed By: #### L 100.0100, L501.2300, L501.9520, L501.4700, L500.4050, L500.4100, L501.5200 ####[facility] [address] [place], [address] Creatinine [Mass/Vol] 0.77 mg/dL Normal 0.55-1.02 [facility] Comment on above: Order Comment: Comme nts: NPO at [place] prior to lipid panel Result Comment: The validity of the calculated GFR GFRAA in patients over70 years has not been determined. Clinical correlation isessential. Performed By: #### L 100.0100, L501.2300, L501.9520, L501.4700, L500.4050, L500.4100, L501.5200 ####[facility] [address] [place], [address] ECRCL 86.24 ml/min Normal [facility] Comment on above: Order Comment: Comme nts: NPO at [place] prior to lipid panel Performed By: #### L 100.0100, L501.2300, L501.9520, L501.4700, L500.4050, L500.4100, L501.5200 ####[facility] [address] [place], [address] EST GFR - AA 99 mL/min Normal >60 [facility] Comment on above: Order Comment: Comme nts: NPO at [place] prior to lipid panel Result Comment: Afri can Israeli GFR Calc Performed By: #### L 100.0100, L501.2300, L501.9520, L501.4700, L500.4050, L500.4100, L501.5200 ####[facility] [address] [place], [address] GAP 4 Low 5-15 [facility] Comment on above: Order Comment: Comme nts: NPO at [place] prior to lipid panel Performed By: #### L 100.0100, L501.2300, L501.9520, L501.4700, L500.4050, L500.4100, L501.5200 ####[facility] [address] [place], [address] GFR/1.73 sq M.predicted among non-blacks MDRD (S/P/Bld) [Vol rate/Area] 82 mL/min/{1.73_m2} Normal >60 [facility] Comment on above: Order Comment: Comme nts: NPO at [place] prior to lipid panel Result Comment: Non- GFR Calc Performed By: #### L 100.0100, L501.2300, L501.9520, L501.4700, L500.4050, L500.4100, L501.5200 ####[facility] [address] [place], [address] Globulin (S) [Mass/Vol] 2.7 g/dL Normal 2.2-4.2 [facility] Comment on above: Order Comment: Comme nts: NPO at [place] prior to lipid panel Performed By: #### L 100.0100, L501.2300, L501.9520, L501.4700, L500.4050, L500.4100, L501.5200 ####[facility] [address] [place], [address] Glucose [Mass/Vol] 93 mg/dL Normal 74-106 [facility] Comment on above: Order Comment: Comme nts: NPO at [place] prior to lipid panel Performed By: #### L 100.0100, L501.2300, L501.9520, L501.4700, L500.4050, L500.4100, L501.5200 ####[facility] [address] [place], [address] Potassium [Moles/Vol] 3.8 mmol/L Normal 3.5-5.1 [facility] Comment on above: Order Comment: Comme nts: NPO at [place] prior to lipid panel Performed By: #### L 100.0100, L501.2300, L501.9520, L501.4700, L500.4050, L500.4100, L501.5200 ####[facility] [address] [place], [address] Sodium [Moles/Vol] 142 mmol/L Normal 136-145 [facility] Comment on above: Order Comment: Comme nts: NPO at [place] prior to lipid panel Performed By: #### L 100.0100, L501.2300, L501.9520, L501.4700, L500.4050, L500.4100, L501.5200 ####[facility] [address] [place], [address] T PROT 6.0 g/dL Low 6.4-8.2 [facility] Comment on above: Order Comment: Comme nts: NPO at [place] prior to lipid panel Performed By: #### L 100.0100, L501.2300, L501.9520, L501.4700, L500.4050, L500.4100, L501.5200 ####[facility] [address] [place], [address] Urea nitrogen [Mass/Vol] 9 mg/dL Normal 7-18 [facility] Comment on above: Order Comment: Comme nts: NPO at [place] prior to lipid panel Performed By: #### L 100.0100, L501.2300, L501.9520, L501.4700, L500.4050, L500.4100, L501.5200 ####[facility] [address] [place], [address] Hemoglobin A1con 07-28-2024 HbA1c (Bld) [Mass fraction] 4.7 % Normal 3.8-5.6 [facility] Comment on above: Result Comment: Norm al < 5.7 % Prediabetic 5.7 - 6.4 % Diabetic >or= 6.5 % Please note range changes. Performed By: #### L 501.9985 ####[facility] [address] [place], [address] Lipid Profileon 07-28-2024 Cholesterol [Mass/Vol] 211 mg/dL High 200 [facility] Comment on above: Order Comment: Comme nts: NPO at [place] prior to lipid panel Result Comment: <200 mg/dL Desirable 200-240 mg/dL Borderline >240 mg/dL High Risk Performed By: #### L 100.0100, L501.2300, L501.9520, L501.4700, L500.4050, L500.4100, L501.5200 ####[facility] [address] [place], [address] Cholesterol in HDL [Mass/Vol] 42 mg/dL Normal [facility] Comment on above: Order Comment: Comme nts: NPO at [place] prior to lipid panel Result Comment: The drugs N-Acetylcysteine and Metamizole may falselydepress this assay. Reference Range HDL <40 mg/dL Low HDL Cholesterol HDL >or= 60 mg/dL High HDL Cholesterol Performed By: #### L 100.0100, L501.2300, L501.9520, L501.4700, L500.4050, L500.4100, L501.5200 ####[facility] [address] [place], [address] Cholesterol in LDL [Mass/Vol] 141 mg/dL High 0-130 [facility] Comment on above: Order Comment: Comme nts: NPO at [place] prior to lipid panel Performed By: #### L 100.0100, L501.2300, L501.9520, L501.4700, L500.4050, L500.4100, L501.5200 ####[facility] [address] [facility] [place], [address] Cholesterol in VLDL [Mass/Vol] 28 mg/dL Normal 5-40 [facility] Comment on above: Order Comment: Comme nts: NPO at [place] prior to lipid panel Performed By: #### L 100.0100, L501.2300, L501.9520, L501.4700, L500.4050, L500.4100, L501.5200 ####[facility] [address] [place], [address] Triglyceride [Mass/Vol] 140 mg/dL Normal [facility] Comment on above: Order Comment: Comme nts: NPO at [place] prior to lipid panel Result Comment: The drugs N-Acetylcysteine and Metamizole may falselydepress this assay.Serum Triglycerides Reference Interval Normal <150 mg/dL Borderline high 150 - 199 mg/dL High 200 - 499 mg/dL Very High > or = 500 mg/dL Performed By: #### L 100.0100, L501.2300, L501.9520, L501.4700, L500.4050, L500.4100, L501.5200 ####[facility] [address] [place], [place], [address] MR/CON.PCM.NEon 07-28-2024 MR/CON.PCM.NE Normal [facility] Magnesiumon 07-28-2024 Magnesium [Mass/Vol] 1.7 mg/dL Normal 1.6-2.6 [facility] Comment on above: Order Comment: Comme nts: NPO at [place] prior to lipid panel Performed By: #### L 100.0100, L501.2300, L501.9520, L501.4700, L500.4050, L500.4100, L501.5200 ####[facility] [address] [place], [address] Phosphoruson 07-28-2024 Phosphate [Mass/Vol] 3.9 mg/dL Normal 2.5-4.9 [facility] Comment on above: Order Comment: Comme nts: NPO at [place] prior to lipid panel Performed By: #### L 100.0100, L501.2300, L501.9520, L501.4700, L500.4050, L500.4100, L501.5200 ####[facility] [address] [place], [address] Thyroid Stim Hormone (TSH)on 07-28-2024 TSH 3.660 uIU/mL Normal 0.358-3.740 [facility] Comment on above: Order Comment: Comme nts: NPO at [place] prior to lipid panel Performed By: #### L 100.0100, L501.2300, L501.9520, L501.4700, L500.4050, L500.4100, L501.5200 ####[facility] [address] [place], [address] 12 Lead EKGon 07-27-2024 12 Lead EKG Normal [facility] Bedside Glucoseon 07-27-2024 FINGERSTICK GLU 92 mg/dL Normal 74-106 [facility] Comment on above: Result Comment: TOMER GALVEZ OF PATIENT CARE PER NURSING PROTOCOL Performed By: #### L 501.080 ####[facility] [address] [place], [address] CBC W/Diff, Automatedon 07-09 0 Absolute Lymph 2.48 X10 3/uL Normal 0.83-4.51 [facility] Comment on above: Performed By: #### L 501.2450, L500.4050, L100.0100 ####[facility] [address] [place], [address] Absolute Neut 4.3 X10 3/uL Normal 2.0-7.7 [facility] Comment on above: Performed By: #### L 501.2450, L500.4050, L100.0100 ####[facility] [address] [place], [address] Basophils/100 WBC (Bld) 0.8 % Normal 0-1 [facility] Comment on above: Performed By: #### L 501.2450, L500.4050, L100.0100 ####[facility] [address] [place], [address] Eosinophils/100 WBC (Bld) 3.2 % Normal 0-5 [facility] Comment on above: Performed By: #### L 501.2450, L500.4050, L100.0100 ####[facility] [address] [place], [address] Erythrocyte distribution width (RBC) [Ratio] 12.1 % Normal 11.6-14.6 [facility] Comment on above: Performed By: #### L 501.2450, L500.4050, L100.0100 ####[facility] [address] [place], [address] Hematocrit (Bld) [Volume fraction] 39.9 % Normal 37-47 [facility] Comment on above: Performed By: #### L 501.2450, L500.4050, L100.0100 ####[facility] [address] [place], [address] Hemoglobin (Bld) [Mass/Vol] 13.9 g/dL Normal 12.0-15.0 [facility] Comment on above: Performed By: #### L 501.2450, L500.4050, L100.0100 ####[facility] [address] [place], [address] IG% 0.300 Normal 0.0-0.9 [facility] Comment on above: Result Comment: IG% - Immature Granulocytes (promyelocytes, myelocytes andmetamyelocytes) > 1% indicates that a LEFT SHIFT is Present. Performed By: #### L 501.2450, L500.4050, L100.0100 ####[facility] [address] [place], [address] Lymphocytes/100 WBC (Bld) 32.9 % Normal 19-41 [facility] Comment on above: Performed By: #### L 501.2450, L500.4050, L100.0100 ####[facility] [address] [place], [address] MCH (RBC) [Entitic mass] 32.0 pg Normal 27.0-32.0 [facility] Comment on above: Performed By: #### L 501.2450, L500.4050, L100.0100 ####[facility] [address] [place], [address] MCHC (RBC) [Mass/Vol] 34.8 g/dL Normal 32-36 [facility] Comment on above: Performed By: #### L 501.2450, L500.4050, L100.0100 ####[facility] [address] [place], [address] MCV (RBC) [Entitic vol] 91.7 fL Normal 81-99 [facility] Comment on above: Performed By: #### L 501.2450, L500.4050, L100.0100 ####[facility] [address] [place], [address] Monocytes/100 WBC (Bld) 6.1 % Normal 0-10 [facility] Comment on above: Performed By: #### L 501.2450, L500.4050, L100.0100 ####[facility] [address] [place], [address] Neutrophils/100 WBC (Bld) 56.7 % Normal 47-70 [facility] Comment on above: Performed By: #### L 501.2450, L500.4050, L100.0100 ####[facility] [address] [place], [address] Nucleated RBC (Bld) [#/Vol] 0 10*3/uL Normal 0-5 [facility] Comment on above: Performed By: #### L 501.2450, L500.4050, L100.0100 ####[facility] [address] [place], [address] Platelet mean volume (Bld) [Entitic vol] 12.2 fL High 6.2-12.0 [facility] Comment on above: Performed By: #### L 501.2450, L500.4050, L100.0100 ####[facility] [address] [place], [address] Platelets (Bld) [#/Vol] 236 10*3/uL Normal 150-450 [facility] Comment on above: Performed By: #### L 501.2450, L500.4050, L100.0100 ####[facility] [address] [place], [address] RBC (Bld) [#/Vol] 4.35 10*6/uL Normal 4.2-5.4 [facility] Comment on above: Performed By: #### L 501.2450, L500.4050, L100.0100 ####[facility] [address] [place], [address] RDW SD 40.3 fl Normal 35.1-43.9 [facility] Comment on above: Performed By: #### L 501.2450, L500.4050, L100.0100 ####[facility] [id number] [place], [address] WBC (Bld) [#/Vol] 7.5 10*3/uL Normal 4.4-11.0 [facility] Comment on above: Performed By: #### L 501.2450, L500.4050, L100.0100 ####[facility] [id number] [place], [address] CTA Head AND Neck W/ Contras ton 07-27-2024 CTA Head AND Neck W/ Contrast Normal [facility] Chest PA and Lateralon 07-27 Chest PA and Lateral Normal [facility] Comprehensive Metabolic Prof ilon 07-27-2024 Albumin [Mass/Vol] 4.0 g/dL Normal 3.2-5.0 [facility] Comment on above: Performed By: #### L 501.2450, L500.4050, L100.0100 ####[facility] [address] [place], [address] Albumin/Globulin [Mass ratio] 1.2 {ratio} Normal 0.9-2.4 [facility] Comment on above: Performed By: #### L 501.2450, L500.4050, L100.0100 ####[facility] [address] [place], [address] ALK P 78 U/L Normal 45-117 [facility] Comment on above: Performed By: #### L 501.2450, L500.4050, L100.0100 ####[facility] [address] [place], [address] ALT [Catalytic activity/Vol] 15 U/L Normal 13-56 [facility] Comment on above: Performed By: #### L 501.2450, L500.4050, L100.0100 ####[facility] [address] [place], [address] AST [Catalytic activity/Vol] 15 U/L Normal 15-37 [facility] Comment on above: Performed By: #### L 501.2450, L500.4050, L100.0100 ####[facility] [address] [place], [address] Bilirubin [Mass/Vol] 0.70 mg/dL Normal 0.20-1.00 [facility] Comment on above: Result Comment: For patients on eltrombopag therapy, use of Dimension [place] TBIL is not recommended. Performed By: #### L 501.2450, L500.4050, L100.0100 ####[facility] [address] [place], [address] BUN/CRE 12.4 RATIO Normal 10-20 [facility] Comment on above: Performed By: #### L 501.2450, L500.4050, L100.0100 ####[facility] [address] [place], [address] CA,Total 9.4 mg/dL Normal 8.5-10.1 [facility] Comment on above: Performed By: #### L 501.2450, L500.4050, L100.0100 ####[facility] [address] [place], [address] Chloride [Moles/Vol] 108 mmol/L High 98-107 [facility] Comment on above: Performed By: #### L 501.2450, L500.4050, L100.0100 ####[facility] [address] [place], [address] CO2 [Moles/Vol] 25.0 mmol/L Normal 21.0-32.0 [facility] Comment on above: Performed By: #### L 501.2450, L500.4050, L100.0100 ####[facility] [address] [place], [address] Creatinine [Mass/Vol] 0.89 mg/dL Normal 0.55-1.02 [facility] Comment on above: Result Comment: The validity of the calculated GFR GFRAA in patients over70 years has not been determined. Clinical correlation isessential. Performed By: #### L 501.2450, L500.4050, L100.0100 ####[facility] [address] [place], [address] ECRCL 74.95 ml/min Normal [facility] Comment on above: Performed By: #### L 501.2450, L500.4050, L100.0100 ####[facility] [address] [place], [address] EST GFR - AA 84 mL/min Normal >60 [facility] Comment on above: Result Comment: Afri can Israeli GFR Calc Performed By: #### L 501.2450, L500.4050, L100.0100 ####[facility] [address] [place], [address] GAP 7 Normal 5-15 [facility] Comment on above: Performed By: #### L 501.2450, L500.4050, L100.0100 ####[facility] [address] [place], [address] GFR/1.73 sq M.predicted among non-blacks MDRD (S/P/Bld) [Vol rate/Area] 69 mL/min/{1.73_m2} Normal >60 [facility] Comment on above: Result Comment: Non- GFR Calc Performed By: #### L 501.2450, L500.4050, L100.0100 ####[facility] [address] [place], [address] Globulin (S) [Mass/Vol] 3.2 g/dL Normal 2.2-4.2 [facility] Comment on above: Performed By: #### L 501.2450, L500.4050, L100.0100 ####[facility] [address] [place], [address] Glucose [Mass/Vol] 99 mg/dL Normal 74-106 [facility] Comment on above: Performed By: #### L 501.2450, L500.4050, L100.0100 ####[facility] [address] [place], [address] Potassium [Moles/Vol] 3.8 mmol/L Normal 3.5-5.1 [facility] Comment on above: Performed By: #### L 501.2450, L500.4050, L100.0100 ####[facility] [address] [place], [address] Sodium [Moles/Vol] 140 mmol/L Normal 136-145 [facility] Comment on above: Performed By: #### L 501.2450, L500.4050, L100.0100 ####[facility] [address] [place], [address] T PROT 7.2 g/dL Normal 6.4-8.2 [facility] Comment on above: Performed By: #### L 501.2450, L500.4050, L100.0100 ####[facility] [address] [place], [address] Urea nitrogen [Mass/Vol] 11 mg/dL Normal 7-18 [facility] Comment on above: Performed By: #### L 501.2450, L500.4050, L100.0100 ####[facility] [address] [place], [address] Echo Completeon 07-27-2024 Echo Complete Normal [facility] Emergency Department Summary on 07-27-2024 Emergency Department Summary Normal [facility] H AND P Exam - Hospitaliston 07-27-2024 H&P Exam - Hospitalist Normal [facility] Lipaseon 07-27-2024 Lipase [Catalytic activity/Vol] 15 U/L Normal 13-75 [facility] Comment on above: Result Comment: Stefan whiting note:LIPASE revised reference range effective 23.New Lipase methodology. Expected to produce lower valuesthan the previous assay method.NEW Reference Range: 13 - 75 U/L Performed By: #### L 501.2450, L500.4050, L100.0100 ####[facility] [address] [place], [address] M100.678on 07-27-2024 M100.678 Pending SARS-CoV-2 (COVID 19) Negative INFLUENZA A Negative INFLUENZA B Negative RSV PCR Negative Normal [facility] Comment on above: Performed By: #### L 400.0001, M100.678 ####[facility] [address] [place], [address] Urinalysis, Completeon 07-27 BACTERIA RARE Normal None Seen [facility] Comment on above: Order Comment: AGUSTIN CTOR TO SPECIFY Performed By: #### L 400.0001, ####[facility] [address] [place], [address] WBC 0-5 SEEN Normal 0-5 [facility] Comment on above: Order Comment: AGUSTIN CTOR TO SPECIFY Performed By: #### L 400.0001, ####[facility] [address] [place], [address] BILIRUBIN URINE Negative Normal Negative [facility] Comment on above: Order Comment: AGUSTIN CTOR TO SPECIFY Performed By: #### L 400.0001, ####[facility] [address] [place], [address] Clarity (U) Clear Normal Clear [facility] Comment on above: Order Comment: AGUSTIN CTOR TO SPECIFY Performed By: #### L 400.0001, ####[facility] [address] [place], [address] Color (U) Straw Normal Yellow [facility] Comment on above: Order Comment: AGUSTIN CTOR TO SPECIFY Performed By: #### L 400.0001, ####[facility] [address] [place], [address] GLUCOSE, UR Normal Normal Normal [facility] Comment on above: Order Comment: AGUSTIN CTOR TO SPECIFY Performed By: #### L 400.0001, ####[facility] [address] [place], [address] KETONE UR Negative Normal Negative [facility] Comment on above: Order Comment: AGUSTIN CTOR TO SPECIFY Performed By: #### L 400.0001, ####[facility] [address] [place], [address] LEUK ESTERASE 25 /ul Abnormal Negative [facility] Comment on above: Order Comment: AGUSTIN CTOR TO SPECIFY Performed By: #### L 400.0001, ####[facility] [address] [place], [address] Nitrite Ql (U) Negative Normal Negative [facility] Comment on above: Order Comment: AGUSTIN CTOR TO SPECIFY Performed By: #### L 400.0001, ####[facility] [address] [place], [address] OCCULT BLOOD-UR Negative Normal Negative [facility] Comment on above: Order Comment: AGUSTIN CTOR TO SPECIFY Performed By: #### L 400.0001, ####[facility] [address] [place], [address] pH UR 7.0 Normal 5.0 - 8.0 [facility] Comment on above: Order Comment: AGUSTIN CTOR TO SPECIFY Performed By: #### L 400.0001, ####[facility] [address] [place], [address] PROT DIPSTX Negative Normal Negative [facility] Comment on above: Order Comment: AGUSTIN CTOR TO SPECIFY Performed By: #### L 400.0001, ####[facility] [address] [place], [address] SP.GR. DIPSTX 1.005 Normal 1.002-1.030 [facility] Comment on above: Order Comment: AGUSTIN CTOR TO SPECIFY Performed By: #### L 400.0001, ####[facility] [address] [place], [address] UROBILI Normal Normal Normal [facility] Comment on above: Order Comment: AGUSTIN CTOR TO SPECIFY Performed By: #### L 400.0001, M100.678 ####[facility] [address] [place], [address] EPI,SQUAMOUS 0 SEEN Normal 5-10 [facility] Comment on above: Order Comment: [facility] CTOR TO SPECIFY Performed By: #### L 400.0001, M100.678 ####[facility] [address] [place], [address] Mucus Ql (Urine sed) 0 SEEN Normal [facility] Comment on above: Order Comment: [facility] CTOR TO SPECIFY Performed By: #### L 400.0001, M100.678 ####[facility] [address] [place], [address] RBC 0 SEEN Normal 0-5 [facility] Comment on above: Order Comment: [facility] CTOR TO SPECIFY Performed By: #### L 400.0001, M100.678 ####[facility] [address] [place], [address] CT ABD/PELVIS W/ IV CONTRAST ONLYon 07-17-2024 CT ABD/PELVIS W/ IV CONTRAST ONLY ORIGINAL EXAMINATION: CT OF THE ABDOMEN AND PELVIS WITH CONTRAST 07/17/2024 9:30 am TECHNIQUE: CT of the abdomen and pelvis was performed with the administration of intravenous contrast. Multiplanar reformatted images are provided for review. Automated exposure control, iterative reconstruction, and/or weight based adjustment of the mA/kV was utilized to reduce the radiation dose to as low as reasonably achievable. COMPARISON: None. HISTORY: ORDERING SYSTEM PROVIDED HISTORY: Reason for Exam: left upper quadrant pain, recent mono illness, history of fatty liver and mesenteric lymphadenopathy FINDINGS: The bilateral lung bases are unremarkable. A spinal cord stimulator is noted within the lower thoracic spine. Mild degenerative changes are noted within the spine. There is a remote left 7th rib deformity. No acute osseous abnormalities are identified. There are few small hypodensities within the liver which are too small to characterize, but likely represent benign hepatic cysts. The spleen, adrenal glands, gallbladder, and pancreas are normal in appearance. Bilateral nephrograms are symmetric. Scarring is seen at the superior pole of the right kidney. No evidence of hydronephrosis is seen. The aorta is normal in caliber with mild atherosclerosis. The small and large bowel demonstrate no acute abnormalities. Very mild sigmoid diverticulosis without evidence of diverticulitis. No evidence of free fluid or free air within the abdomen. No overt lymphadenopathy is seen. The bladder appears grossly normal. There is a lobular contour to the uterus, like secondary to fibroids. No evidence of free fluid or lymphadenopathy within the pelvis. No additional contributory abnormality seen. IMPRESSION: Renal scarring seen at the right renal superior pole. Uterine fibroids. I have personally reviewed the images of this examination and agree with the resident's findings and interpretation. Interpreted by: Tanner Stephen Preliminary Report By: Kandi George Electronically signed By Tanner Stephen Dictated Date: 07/17/2024 11:47:40 AM Prelim Date: 07/17/2024 4:33:08 PM Sign Date: 07/17/2024 4:33:08 PM Ordering Provider: AGAPITO Patton [facility] US ABDOMEN LIMITEDon 024 US ABDOMEN LIMITED ORIGINAL EXAMINATION: LEFT UPPER QUADRANT ULTRASOUND 06/22/2024 8:38 am COMPARISON: None. HISTORY: ORDERING SYSTEM PROVIDED HISTORY: Reason for Exam: left upper quadrant pain, mono, rule out splenomegaly FINDINGS: SPLEEN: Spleen measures 14 3 x 5 x 5 cm and is top-normal in size. There is no splenic mass. LEFT KIDNEY: Measures 13.1 x 5.0 x 5.0 cm. There is appropriate differential cortical and hilar echotexture. No cortical thinning or hydronephrosis is seen. There is no mass lesion or stone. OTHER: No evidence of right upper quadrant ascites. IMPRESSION: Unremarkable left upper quadrant ultrasound. Interpreted by: Daniel Lopez DO Preliminary Report By: Daniel Lopez DO Electronically signed By Daniel Lopez DO Dictated Date: 06/22/2024 9:25:18 AM Prelim Date: 06/22/2024 9:33:30 AM Sign Date: 06/22/2024 9:33:30 AM Ordering Provider: AGAPITO Patton [facility] ([place]) EBVon 06-07-2024 EBV IgG Positive Normal Negative [facility] ([place]) Comment on above: Result Comment: INTE RPRETATION OF EBV IgG BY EIA: Negative: No detectable EBV IgG antibody. Result does not exclude EBV infection. Positive: EBV IgG antibody detected. Indicative of current or past infection. Equivocal: Equivocal for antibodies to EBV. Repeat testing if still indicated. Performed By: #### A MORIS, CBC, GFR, ADIFF, CMP, LIP ####[place] [address]#### EBV ####[place] [address] EBV IgM Negative Normal Negative [facility] ([place]) Comment on above: Result Comment: INTE RPRETATION OF EBV IgM BY EIA: Negative: No detectable EBV IgM antibody. Result does not exclude EBV infection. An additional sample should be tested within 5-7 days if early infection is suspected. Positive: EBV IgM antibody detected. May be indicative of current or recent infection. Equivocal: Equivocal for antibodies to EBV. Repeat testing if still indicated. Performed By: #### A MORIS, CBC, GFR, ADIFF, CMP, LIP ####[place] [address]#### EBV ####[place] [address] TSHRon 06-05-2024 TSH Qn 1.48 m[IU]/L Normal 0.36-3.74 [facility] ([place]) Comment on above: Performed By: #### T SHR #### [place] [id number] XR ABDOMEN APon 06-05-2024 XR ABDOMEN AP ORIGINAL EXAMINATION: ONE SUPINE XRAY VIEW(S) OF THE ABDOMEN06/04/2024 4:49 pm COMPARISON: None HISTORY: ORDERING SYSTEM PROVIDED HISTORY: Reason for Exam: right lower quadrant linear mass and pain ?stool burden, FINDINGS: Nonobstructive bowel gas pattern. There is a moderate amount of stool in the colon without significant fecal loading of the rectosigmoid. No pathologic calcifications/calculi. Spinal stimulator device on the left with intraspinal leads extending into the midthoracic region. No obvious lead discontinuity. IMPRESSION: No high-grade bowel obstruction. Moderate stool burden. Interpreted by: Kamran Barragan MD Preliminary Report By: Kamran Barragan MD Electronically signed By Kamran Barragan MD Dictated Date: 06/05/2024 4:57:59 PM Prelim Date: 06/05/2024 4:58:45 PM Sign Date: 06/05/2024 4:58:45 PM Ordering Provider: AGAPITO Patton [facility] ([place]) .Auto Diffon 06-04-2024 Basophil, Absolute 0.1 10 3/mcL Normal 0.0-0.2 [facility] ([place]) Comment on above: Performed By: #### A MORIS, CBC, GFR, ADIFF, CMP, LIP #### [address] [address] #### EBV #### [address] [address] Basophils/100 WBC (Bld) 0.7 % Normal 0.0-2.5 [facility] ([place]) Comment on above: Performed By: #### A MORIS, CBC, GFR, ADIFF, CMP, LIP #### [address] [address] #### EBV #### [address] [address] Eosinophil, Absolute 0.3 10 3/mcL Normal 0.0-0.4 [facility] ([place]) Comment on above: Performed By: #### A MORIS, CBC, GFR, ADIFF, CMP, LIP #### [address] [address] #### EBV #### [address] [address] Eosinophils/100 WBC (Bld) 3.1 % Normal 0.0-7.0 [facility] ([place]) Comment on above: Performed By: #### A MORIS, CBC, GFR, ADIFF, CMP, LIP #### [address] [address] #### EBV #### [address] [address] Lymphocyte, Absolute 2.2 10 3/mcL Normal 0.8-3.9 [facility] ([place]) Comment on above: Performed By: #### A MORIS, CBC, GFR, ADIFF, CMP, LIP #### [address] [address] #### EBV #### [address] [address] Lymphocytes/100 WBC (Bld) 27.5 % Normal 10.0-50.0 [facility] ([place]) Comment on above: Performed By: #### A MORIS, CBC, GFR, ADIFF, CMP, LIP #### [address] [address] #### EBV #### [address] [address] Monocyte, Absolute 0.5 10 3/mcL Normal 0.2-1.0 [facility] ([place]) Comment on above: Performed By: #### A MORIS, CBC, GFR, ADIFF, CMP, LIP #### [place] [address] #### EBV #### [address] [address] Monocytes/100 WBC (Bld) 5.9 % Normal 1.7-13.0 [facility] ([place]) Comment on above: Performed By: #### A MORIS, CBC, GFR, ADIFF, CMP, LIP #### [address] [address] #### EBV #### [address] [address] Neutrophils/100 WBC (Bld) 62.8 % Normal 37.0-80.0 [facility] ([place]) Comment on above: Performed By: #### A MORIS, CBC, GFR, ADIFF, CMP, LIP #### [address] [address] #### EBV #### [address] [address] .GFRon 06-04-2024 GFR 88 ml/min/1.73sqm Normal [facility] ([place]) Comment on above: Result Comment: GFR Population mean for , Non- Americans Ages 20-29 = 116 mL/min/1.73 sq.m. Ages 30-39 = 107 mL/min/1.73 sq.m. Ages 40-49 = 99 mL/min/1.73 sq.m. Ages 50-59 = 93 mL/min/1.73 sq.m. Ages 60-69 = 85 mL/min/1.73 sq.m. Ages 70+ = 75 mL/min/1.73 sq.m. Chronic Kidney Disease: Less than 60 mL/min/1.73 square meters End Stage Renal Disease: Less than 15 mL/min/1.73 square meters Performed By: #### A MORIS, CBC, GFR, ADIFF, CMP, LIP #### [address] [address] #### EBV #### [address] [address] GFR Non- 72 ml/min/1.73sqm Normal [facility] ([place]) Comment on above: Result Comment: GFR Population mean for , Non- Americans Ages 20-29 = 116 mL/min/1.73 sq.m. Ages 30-39 = 107 mL/min/1.73 sq.m. Ages 40-49 = 99 mL/min/1.73 sq.m. Ages 50-59 = 93 mL/min/1.73 sq.m. Ages 60-69 = 85 mL/min/1.73 sq.m. Ages 70+ = 75 mL/min/1.73 sq.m. Chronic Kidney Disease: Less than 60 mL/min/1.73 square meters End Stage Renal Disease: Less than 15 mL/min/1.73 square meters Performed By: #### A MORIS, CBC, GFR, ADIFF, CMP, LIP #### [address] [address] #### EBV #### [address] [address] .NEUABSon 06-04-2024 Neutrophil, Absolute 5.0 10 3/mcL Normal 2.9-6.2 [facility] ([place]) Comment on above: Performed By: #### A MORIS, CBC, GFR, ADIFF, CMP, LIP #### [place] [address] #### EBV #### [place] [address] CBCon 06-04-2024 Erythrocyte distribution width (RBC) [Ratio] 12.9 % Normal 11.5-14.5 [facility] ([place]) Comment on above: Performed By: #### A MORIS, CBC, GFR, ADIFF, CMP, LIP #### [place] [address] #### EBV #### [place] [address] Hematocrit (Bld) [Volume fraction] 41.7 % Normal 37.0-47.0 [facility] ([place]) Comment on above: Performed By: #### A MORIS, CBC, GFR, ADIFF, CMP, LIP #### [place] [address] #### EBV #### [place] [address] Hgb 14.5 G/dL Normal 12.0-16.0 [facility] ([place]) Comment on above: Performed By: #### A MORIS, CBC, GFR, ADIFF, CMP, LIP #### [place] [address] #### EBV #### [place] [address] MCH (RBC) [Entitic mass] 32.7 pg High 27.0-31.2 [facility] ([place]) Comment on above: Performed By: #### A MORIS, CBC, GFR, ADIFF, CMP, LIP #### [place] [address] #### EBV #### [place] [address] MCHC 34.8 G/dL Normal 33.0-37.0 [facility] ([place]) Comment on above: Performed By: #### A MORIS, CBC, GFR, ADIFF, CMP, LIP #### [place] [address] #### EBV #### [address] [address] MCV (RBC) [Entitic vol] 93.7 fL Normal 80.0-94.0 [facility] ([place]) Comment on above: Performed By: #### A MORIS, CBC, GFR, ADIFF, CMP, LIP #### [place] [address] #### EBV #### [place] [address] Platelet 233 10 3/mcL Normal 130-400 [facility] ([place]) Comment on above: Performed By: #### A MORIS, CBC, GFR, ADIFF, CMP, LIP #### [place] [address] #### EBV #### [place] [address] Platelet mean volume (Bld) [Entitic vol] 9.6 fL Normal 7.4-10.4 [facility] ([place]) Comment on above: Performed By: #### A MORIS, CBC, GFR, ADIFF, CMP, LIP #### [place] [address] #### EBV #### [place] [address] RBC 4.45 10 6/mcL Normal 4.20-5.40 [facility] ([place]) Comment on above: Performed By: #### A MORIS, CBC, GFR, ADIFF, CMP, LIP #### [place] [address] #### EBV #### [place] [address] WBC 8.0 10 3/mcL Normal 4.6-10.8 [facility] ([place] Comment on above: Performed By: #### A MORIS, CBC, GFR, ADIFF, CMP, LIP #### [place] [address] #### EBV #### [place] [address] CMPon 06-04-2024 Albumin Level 3.9 G/dL Normal 3.5-5.0 [facility] ([place]) Comment on above: Performed By: #### A MORIS, CBC, GFR, ADIFF, CMP, LIP #### [address] [address] #### EBV #### [address] [address] Albumin/Globulin [Mass ratio] 1.3 {ratio} Normal 1.1-2.5 [facility] ([place]) Comment on above: Performed By: #### A MORIS, CBC, GFR, ADIFF, CMP, LIP #### [address] [address] #### EBV #### [place] [address] ALP [Catalytic activity/Vol] 91 U/L Normal 40-135 [facility] ([place]) Comment on above: Performed By: #### A MORIS, CBC, GFR, ADIFF, CMP, LIP #### [address] [address] #### EBV #### [place] [address] ALT [Catalytic activity/Vol] 17 U/L Normal 14-59 [facility] ([place]) Comment on above: Performed By: #### A MORIS, CBC, GFR, ADIFF, CMP, LIP #### [address] [address] #### EBV #### [place] [address] AST [Catalytic activity/Vol] 12 U/L Normal 10-40 [facility] ([place]) Comment on above: Performed By: #### A MORIS, CBC, GFR, ADIFF, CMP, LIP #### [address] [address] #### EBV #### [place] [address] Bili Total 0.6 mg/dL Normal 0.2-1.0 [facility] ([place]) Comment on above: Result Comment: Use of this assay is not recommended for patients undergoing treatment with eltrombopag due to the potential for falsely elevated results. Performed By: #### A MORIS, CBC, GFR, ADIFF, CMP, LIP #### [address] [address] #### EBV #### [address] [address] BUN/Creatinine Ratio 16 ratio Normal 7-27 [facility] ([place] Comment on above: Performed By: #### A MORIS, CBC, GFR, ADIFF, CMP, LIP #### [place] [address] #### EBV #### [address] [address] Calcium [Mass/Vol] 9.7 mg/dL Normal 8.4-10.2 [facility] ([place]) Comment on above: Performed By: #### A MORIS, CBC, GFR, ADIFF, CMP, LIP #### [place] [address] #### EBV #### [address] [address] Chloride [Moles/Vol] 107 mmol/L Normal 98-107 [facility] ([place]) Comment on above: Performed By: #### A MORIS, CBC, GFR, ADIFF, CMP, LIP #### [place] [address] #### EBV #### [address] [address] CO2 [Moles/Vol] 27 mmol/L Normal 22-29 [facility] ([place] Comment on above: Performed By: #### A MORIS, CBC, GFR, ADIFF, CMP, LIP #### [place] [address] #### EBV #### [address] [address] Creatinine [Mass/Vol] 0.81 mg/dL Normal 0.55-1.02 [facility] ([place]) Comment on above: Performed By: #### A MORIS, CBC, GFR, ADIFF, CMP, LIP #### [address] [address] #### EBV #### [address] [address] Electrolyte Balance 10.0 mEq/L Normal 4.0-15.0 [facility] ([place]) Comment on above: Performed By: #### A MORIS, CBC, GFR, ADIFF, CMP, LIP #### [address] [address] #### EBV #### [address] [address] Globulin 3.0 G/dL Normal [facility] ([place]) Comment on above: Performed By: #### A MORIS, CBC, GFR, ADIFF, CMP, LIP #### [address] [address] #### EBV #### [address] [address] Glucose [Mass/Vol] 93 mg/dL Normal 70-105 [facility] ([place]) Comment on above: Performed By: #### A MORIS, CBC, GFR, ADIFF, CMP, LIP #### [address] [address] #### EBV #### [address] [address] Potassium [Moles/Vol] 4.6 mmol/L Normal 3.5-5.1 [facility] ([place]) Comment on above: Performed By: #### A MORIS, CBC, GFR, ADIFF, CMP, LIP #### [address] [address] #### EBV #### [address] [address] Sodium [Moles/Vol] 144 mmol/L Normal 136-145 [facility] ([place]) Comment on above: Performed By: #### A MORIS, CBC, GFR, ADIFF, CMP, LIP #### [address] [address] #### EBV #### [address] [address] Total Protein 6.9 G/dL Normal 6.4-8.2 [facility] ([place]) Comment on above: Performed By: #### A MORIS, CBC, GFR, ADIFF, CMP, LIP #### [address] [address] #### EBV #### [address] [address] Urea nitrogen [Mass/Vol] 13 mg/dL Normal 7-18 [facility] ([place]) Comment on above: Performed By: #### A MORIS, CBC, GFR, ADIFF, CMP, LIP #### [address] [address] #### EBV #### [place] [address] LABORATORYOrdered By: SYSTEM SYSTEM on 06-04-2024 Albumin BCP dye [Mass/Vol] 3.9 G/dL Normal 3.5 - 5.0 G/dL AO ADM SS Albumin/Globulin [Mass ratio] 1.3 {ratio} Normal 1.1 - 2.5 ratio AO ADM SS ALP [Catalytic activity/Vol] 91 U/L Normal 40 - 135 U/L AO ADM SS ALT With P-5'-P [Catalytic activity/Vol] 17 U/L Normal 14 - 59 U/L AO ADM SS AST With P-5'-P [Catalytic activity/Vol] 12 U/L Normal 10 - 40 U/L AO ADM SS Basophil, Absolute 0.1 103/mcL Normal 0.0 - 0.2 10^3/mcL AO Workflow SS Basophils/100 WBC (Bld) 0.7 % Normal 0.0 - 2.5 % AO Workflow SS Bilirubin [Mass/Vol] 0.6 mg/dL Normal 0.2 - 1.0 mg/dL AO ADM SS Comment on above: Interpretive Data: U se of this assay is not recommended for patients undergoing treatment with eltrombopag due to the potential for falsely elevated results. Calcium [Mass/Vol] 9.7 mg/dL Normal 8.4 - 10. 2 mg/dL AO ADM SS Chloride [Moles/Vol] 107 mmol/L Normal 98 - 107 mmol/L AO ADM SS CO2 [Moles/Vol] 27 mmol/L Normal 22 - 29 mmol/L AO ADM SS Creatinine [Mass/Vol] 0.81 mg/dL Normal 0.55 - 1.02 mg/dL AO ADM SS Electrolyte Balance 10.0 mEq/L Normal 4.0 - 15 .0 mEq/L AO ADM SS Eosinophil, Absolute 0.3 103/mcL Normal 0.0 - 0.4 10^3/mcL AO Workflow SS Eosinophils/100 WBC (Bld) 3.1 % Normal 0.0 - 7.0 % AO Workflow SS Erythrocyte distribution width (RBC) [Ratio] 12.9 % Normal 11.5 - 14.5 % AO Workflow SS GFR/1.73 sq M.predicted among blacks MDRD (S/P/Bld) [Vol rate/Area] 88 ml/min/1.73sqm Invalid Interpretation Code AO Chemistry S Comment on above: Interpretive Data: GFR Population mean for , Non- Americans Ages 20-29 = 116 mL/min/1.73 sq.m. Ages 30-39 = 107 mL/min/1.73 sq.m. Ages 40-49 = 99 mL/min/1.73 sq.m. Ages 50-59 = 93 mL/min/1.73 sq.m. Ages 60-69 = 85 mL/min/1.73 sq.m. Ages 70+ = 75 mL/min/1.73 sq.m. Chronic Kidney Disease: Less than 60 mL/min/1.73 square meters End Stage Renal Disease: Less than 15 mL/min/1.73 square meters GFR/1.73 sq M.predicted among non-blacks MDRD (S/P/Bld) [Vol rate/Area] 72 ml/min/1.73sqm Invalid Interpretation Code AO Chemistry S Comment on above: Interpretive Data: GFR Population mean for , Non- Americans Ages 20-29 = 116 mL/min/1.73 sq.m. Ages 30-39 = 107 mL/min/1.73 sq.m. Ages 40-49 = 99 mL/min/1.73 sq.m. Ages 50-59 = 93 mL/min/1.73 sq.m. Ages 60-69 = 85 mL/min/1.73 sq.m. Ages 70+ = 75 mL/min/1.73 sq.m. Chronic Kidney Disease: Less than 60 mL/min/1.73 square meters End Stage Renal Disease: Less than 15 mL/min/1.73 square meters Globulin 3.0 G/dL Invalid Interpretation Code AO ADM SS Glucose [Mass/Vol] 93 mg/dL Normal 70 - 105 mg/dL AO ADM SS Hematocrit (Bld) [Volume fraction] 41.7 % Normal 37.0 - 47.0 % AO Workflow SS Hemoglobin (Bld) [Mass/Vol] 14.5 G/dL Normal 12.0 - 16.0 G/dL AO Workflow SS Lipase [Catalytic activity/Vol] 23 U/L Normal 16 - 77 U/L AO ADM SS Lymphocyte, Absolute 2.2 103/mcL Normal 0.8 - 3.9 10^3/mcL AO Workflow SS Lymphocytes/100 WBC (Bld) 27.5 % Normal 10.0 - 50.0 % AO Workflow SS MCH (RBC) [Entitic mass] 32.7 pg High 27.0 - 31.2 pg AO Workflow SS MCHC 34.8 G/dL Normal 33.0 - 37.0 G/dL AO Workflow SS MCV (RBC) [Entitic vol] 93.7 fL Normal 80.0 - 94.0 fL AO Workflow SS Monocyte, Absolute 0.5 103/mcL Normal 0.2 - 1.0 10^3/mcL AO Workflow SS Monocytes/100 WBC (Bld) 5.9 % Normal 1.7 - 13.0 % AO Workflow SS Neutrophil, Absolute 5.0 103/mcL Normal 2.9 - 6.2 10^3/mcL AO Workflow SS Neutrophils/100 WBC (Bld) 62.8 % Normal 37.0 - 80.0 % AO Workflow SS Platelet mean volume (Bld) [Entitic vol] 9.6 fL Normal 7.4 - 10.4 fL AO Workflow SS Platelets (Bld) [#/Vol] 233 103/mcL Normal 130 - 400 10^3/mcL AO Workflow SS Potassium [Moles/Vol] 4.6 mmol/L Normal 3.5 - 5.1 mmol/L AO ADM SS Protein [Mass/Vol] 6.9 G/dL Normal 6.4 - 8.2 G/dL AO ADM SS RBC (Bld) [#/Vol] 4.45 106/mcL Normal 4.20 - 5.4 0 10^6/mcL AO Workflow SS Sodium [Moles/Vol] 144 mmol/L Normal 136 - 145 mmol/L AO ADM SS Urea nitrogen [Mass/Vol] 13 mg/dL Normal 7 - 18 mg/dL AO ADM SS Urea nitrogen/Creatinine [Mass ratio] 16 ratio Normal 7 - 27 ratio AO ADM SS WBC (Bld) [#/Vol] 8.0 103/mcL Normal 4.6 - 10.8 10^3/mcL AO Workflow SS LIPon 06-04-2024 Lipase Level 23 U/L Normal 16-77 [facility] ([place]) Comment on above: Performed By: #### A MORIS, CBC, GFR, ADIFF, CMP, LIP #### [address] [address] #### EBV #### [address] [address] LABORATORYOrdered By: Nikolay Crowley on 05-29-2024 Heterophile Ab LA Ql (S) Positive (05/29/24 10:31 AM) Normal AO Rapid Testing SS MONOon 05-29-2024 Mononucleosis Positive Normal Negative [facility] ([place]) Comment on above: Performed By: #### M BRISA ####[address] [place], [place] [address] ABD Limited w/ Elastographyo n 05-11-2024 ABD Limited w/ Elastography Normal [facility] ANAon 05-08-2024 Nuclear Ab IF (S) [Titer] 40 {titer} Normal Neg 40 [facility] ([place]) Comment on above: Result Comment: CHARMAINE Screen and Titer methodology is an immunofluorescent technique utilizing Hep2 Substrate. Performed By: #### V IDH, ESR, TSHR ####[place] [address] [place] [id number]#### CHARMAINE ####[address] [address] ESRon 05-07-2024 Erythrocyte Sed Rate 3 mm/hr Normal 0-30 [facility] ([place]) Comment on above: Performed By: #### V IDH, ESR, TSHR ####[address] [address]#### CHARMAINE ####[place] [address] LABORATORYOrdered By: SYSTEM SYSTEM on 05-07-2024 25-hydroxyvitamin D3 [Mass/Vol] 38.7 ng/mL Invalid Interpretation Code AO ADM SS Comment on above: Interpretive Data: I nterpretive Values Based on Total 25([place]) Vitamin D: Deficient <20 ng/mL Insufficient 20 - <30 ng/mL Sufficient 30-100 ng/mL TSH Qn 1.93 m[IU]/L Normal 0.36 - 3.74 mcIU/mL AO ADM SS LABORATORYOrdered By: Aidan holliday on 05-07-2024 ESR Photometric method (Bld) [Velocity] 3 mm/hr Normal 0 - 30 mm/hr AO Man Heme SS TSHRon 05-07-2024 TSH Qn 1.93 m[IU]/L Normal 0.36-3.74 [facility] ([place]) Comment on above: Performed By: #### V IDH, ESR, TSHR ####[place] [place] [id number]#### CHARMAINE ####[place] [address] VIDHon 05-07-2024 Vit. D 25-Hydroxy 38.7 ng/mL Normal [facility] ([place]) Comment on above: Result Comment: Inte rpretive Values Based on Total 25([place]) Vitamin D: Deficient <20 ng/mL Insufficient 20 - <30 ng/mL Sufficient 30-100 ng/mL Performed By: #### V IDH, ESR, TSHR ####[place] [address] [place], [place] [address]#### CHARMAINE ####[place] [address] CHARMAINE Comprehensive Panelon CHARMAINE TABLE Comment Normal . [facility] Comment on above: Result Comment: Auto antibody Disease Association ----- Condition Frequency ---------Antinuclear Antibody, SLE, mixed connectiveDirect (CHARMAINE-D) tissue diseases ---------dsDNA SLE 40 - 60% ---------Chromatin Drug induced SLE 90% SLE 48 - 97% ---------SSA (Ro) SLE 25 - 35% Sjogren's Syndrome 40 - 70% Lupus 100% ---------SSB (La) SLE 10% Sjogren's Syndrome 30% ---------Sm (anti-Cavazos) SLE 15 - 30% ---------MANAGING BROKER Mixed Connective Tissue Disease 95%(U1 nRNP, SLE 30 - 50%anti-ribonucleoprotein) Polymyositis and/or Dermatomyositis 20% ---------Scl-70 (antiDNA Scleroderma (diffuse) 20 - 35%topoisomerase) Crest 13% ---------Elena-1 Polymyositis and/or Dermatomyositis 20 - 40% ---------Centromere B Scleroderma - Crest variant 80% Performed By: #### L 504.2610, L800.1280, L3400.0700, L501.6710, L500.4050, L100.0100, L803.2200, L3300.0100, L3100.5440, L503.6550, L3300.1200 ####[facility] [address] [place], [address] ANTI-CENT B AB <0.2 Normal 0.0-0.9 [facility] Comment on above: Performed By: #### L 504.2610, L800.1280, L3400.0700, L501.6710, L500.4050, L100.0100, L803.2200, L3300.0100, L3100.5440, L503.6550, L3300.1200 ####[facility] [address] [facility] [place], [address] ANTI-DNA (DS)AB <1 Normal 0-9 [facility] Comment on above: Result Comment: Nega tive <5 Equivocal 5 - 9 Positive >9 Performed By: #### L 504.2610, L800.1280, L3400.0700, L501.6710, L500.4050, L100.0100, L803.2200, L3300.0100, L3100.5440, L503.6550, L3300.1200 ####[facility] [address] [place], [place], [phone]) ANTI-ELENA-1 <0.2 Normal 0.0-0.9 [facility] Comment on above: Performed By: #### L 504.2610, L800.1280, L3400.0700, L501.6710, L500.4050, L100.0100, L803.2200, L3300.0100, L3100.5440, L503.6550, L3300.1200 ####[facility] [address] [place], [place], [phone] ANTI-SS-A < 0.2 Normal 0.0-0.9 [facility] Comment on above: Performed By: #### L 504.2610, L800.1280, L3400.0700, L501.6710, L500.4050, L100.0100, L803.2200, L3300.0100, L3100.5440, L503.6550, L3300.1200 ####[facility] [address] [place], [address] Anti-SS-B < 0.2 Normal 0.0-0.9 [facility] Comment on above: Performed By: #### L 504.2610, L800.1280, L3400.0700, L501.6710, L500.4050, L100.0100, L803.2200, L3300.0100, L3100.5440, L503.6550, L3300.1200 ####[facility] [address] [place], [address](985) ANTICHROMATIN <0.2 Normal 0.0-0.9 [facility] Comment on above: Performed By: #### L 504.2610, L800.1280, L3400.0700, L501.6710, L500.4050, L100.0100, L803.2200, L3300.0100, L3100.5440, L503.6550, L3300.1200 ####[facility] [address] [place], [place], [phone] ANTISCLERODERM <0.2 Normal 0.0-0.9 [facility] Comment on above: Performed By: #### L 504.2610, L800.1280, L3400.0700, L501.6710, L500.4050, L100.0100, L803.2200, L3300.0100, L3100.5440, L503.6550, L3300.1200 ####[facility] [address] [place], [place], [phone] MANAGING BROKER Ab 0.2 AI Normal 0.0-0.9 [facility] Comment on above: Performed By: #### L 504.2610, L800.1280, L3400.0700, L501.6710, L500.4050, L100.0100, L803.2200, L3300.0100, L3100.5440, L503.6550, L3300.1200 ####[facility] [address] [place], [address] CAVAZOS Ab <0.2 Normal 0.0-0.9 [facility] Comment on above: Performed By: #### L 504.2610, L800.1280, L3400.0700, L501.6710, L500.4050, L100.0100, L803.2200, L3300.0100, L3100.5440, L503.6550, L3300.1200 ####[facility] [address] [place], [place], [phone] ANCAon 04-25-2024 Atypical pANCA <1:20 Normal Neg:<1:20 [facility] Comment on above: Order Comment: Test( s) 179200-Ysjkgl, Serum or Plasmawas developed and its performance characteristicsdetermined by [employer]. It has not been cleared or approvedby the Food and Drug Administration. Result Comment: The atypical pANCA pattern has been observed in asignificant percentage of patients with ulcerative colitis,primary sclerosing cholangitis and autoimmune hepatitis. Performed By: #### L 504.2610, L800.1280, L3400.0700, L501.6710, L500.4050, L100.0100, L803.2200, L3300.0100, L3100.5440, L503.6550, L3300.1200 ####[facility] [address] [facility]. [place], [place], [phone] Cytoplasmic Ab <1:20 Normal Neg:<1:20 [facility] Comment on above: Order Comment: Test( s) 934762-Sprbva, Serum or Plasmawas developed and its performance characteristicsdetermined by [employer]. It has not been cleared or approvedby the Food and Drug Administration. Performed By: #### L 504.2610, L800.1280, L3400.0700, L501.6710, L500.4050, L100.0100, L803.2200, L3300.0100, L3100.5440, L503.6550, L3300.1200 ####[facility] [address] [facility] [address] [place], [place], [phone](108) Perinuclear Ab. <1:20 Normal Neg:<1:20 [facility] Comment on above: Order Comment: Test( s) 721053-Agejxm, Serum or Plasmawas developed and its performance characteristicsdetermined by [employer]. It has not been cleared or approvedby the Food and Drug Administration. Result Comment: The presence of positive fluorescence exhibiting P-ANCA orC-ANCA patterns alone is not specific for the diagnosis ofWegener's Granulomatosis (WG) or microscopic polyangiitis.Decisions about treatment should not be based solely onANCA IFA results. The International ANCA Group Consensusrecommends follow up testing of positive sera with both MD-3 and MPO-ANCA enzyme immunoassays. As many as 5% serumsamples are positive only by EIA. Ref. AM J Clin [id number];111:507-513. Performed By: #### L 504.2610, L800.1280, L3400.0700, L501.6710, L500.4050, L100.0100, L803.2200, L3300.0100, L3100.5440, L503.6550, L3300.1200 ####[facility] [address] [place], [address] Anti-Mitochondrial ABon - ANTIMITOCHON AB <20.0 Normal 0.0-20.0 [facility] Comment on above: Result Comment: Nega tive 0.0 - 20.0 Equivocal 20.1 - 24.9 Positive >24.9Mitochondrial (M2) Antibodies are found in 90-96% ofpatients with primary biliary cirrhosis.Performed at: [facility] [place] [id number] Director: Danny Rodríguez PhD, Phone: [phone] Performed By: #### L 504.2610, L800.1280, L3400.0700, L501.6710, L500.4050, L100.0100, L803.2200, L3300.0100, L3100.5440, L503.6550, L3300.1200 ####[facility] [address] [place], [address] Anti-Smooth Muscle ABSon ANTISMOOTH MUSC 4 Units Normal 0-19 [facility] Comment on above: Order Comment: Test( s) [id number]-Vtkqrq, Serum or Plasmawas developed and its performance characteristicsdetermined by [employer]. It has not been cleared or approvedby the Food and Drug Administration. Result Comment: Nega tive 0 - 19 Weak positive 20 - 30 Moderate to strong positive >30 Actin Antibodies are found in 52-85% of patients with autoimmune hepatitis or chronic active hepatitis and in 22% of patients with primary biliary cirrhosis. Performed By: #### L 504.2610, L800.1280, L3400.0700, L501.6710, L500.4050, L100.0100, L803.2200, L3300.0100, L3100.5440, L503.6550, L3300.1200 ####[facility] [address] [place], [place], [phone] Ceruloplasminon 04-25-2024 CERULOPLASMIN 33.4 mg/dL Normal 19.0-39.0 [facility] Comment on above: Order Comment: Test( s) 900916-Mjkhgf, Serum or Plasmawas developed and its performance characteristicsdetermined by [employer]switch. It has not been cleared or approvedby the Food and Drug Administration. Performed By: #### L 504.2610, L800.1280, L3400.0700, L501.6710, L500.4050, L100.0100, L803.2200, L3300.0100, L3100.5440, L503.6550, L3300.1200 ####[facility] [address] [facility] [address] [place], [place], [phone] Copper, Serum or Plasmaon COPPER, SERUM 129 ug/dL Normal 80-158 [facility] Comment on above: Order Comment: Test( s) 204518-Mnwxvk, Serum or Plasmawas developed and its performance characteristicsdetermined by [employer]. It has not been cleared or approvedby the Food and Drug Administration. Result Comment: Dete ction Limit = 5Performed at: [facility] [address] [id number] Director: Danny Rodríguez PhD, Phone: [phone] at: [facility] [address] [id number] Director: Blake Vicente MD, Phone: [phone] Performed By: #### L 504.2610, L800.1280, L3400.0700, L501.6710, L500.4050, L100.0100, L803.2200, L3300.0100, L3100.5440, L503.6550, L3300.1200 ####[facility] [address] [place], [place], [phone] CBC W/Diff, Automatedon - Absolute Lymph 1.77 X10 3/uL Normal 0.83-4.51 [facility] Comment on above: Performed By: #### L 504.2610, L800.1280, L3400.0700, L501.6710, L500.4050, L100.0100, L803.2200, L3300.0100, L3100.5440, L503.6550, L3300.1200 ####[facility] [address] [place], [place], [phone] Absolute Neut 4.1 X10 3/uL Normal 2.0-7.7 [facility] Comment on above: Performed By: #### L 504.2610, L800.1280, L3400.0700, L501.6710, L500.4050, L100.0100, L803.2200, L3300.0100, L3100.5440, L503.6550, L3300.1200 ####[facility] [address] [place], [address] Basophils/100 WBC (Bld) 0.8 % Normal 0-1 [facility] Comment on above: Performed By: #### L 504.2610, L800.1280, L3400.0700, L501.6710, L500.4050, L100.0100, L803.2200, L3300.0100, L3100.5440, L503.6550, L3300.1200 ####[facility] [address] [place], [phone] Eosinophils/100 WBC (Bld) 2.8 % Normal 0-5 [facility] Comment on above: Performed By: #### L 504.2610, L800.1280, L3400.0700, L501.6710, L500.4050, L100.0100, L803.2200, L3300.0100, L3100.5440, L503.6550, L3300.1200 ####[facility] [address] [place], [address] Erythrocyte distribution width (RBC) [Ratio] 12.3 % Normal 11.6-14.6 [facility] Comment on above: Performed By: #### L 504.2610, L800.1280, L3400.0700, L501.6710, L500.4050, L100.0100, L803.2200, L3300.0100, L3100.5440, L503.6550, L3300.1200 ####[facility] [address] [facility] [place], [address] Hematocrit (Bld) [Volume fraction] 42.6 % Normal 37-47 [facility] Comment on above: Performed By: #### L 504.2610, L800.1280, L3400.0700, L501.6710, L500.4050, L100.0100, L803.2200, L3300.0100, L3100.5440, L503.6550, L3300.1200 ####[facility] [address] [facility] [place], [address] Hemoglobin (Bld) [Mass/Vol] 14.3 g/dL Normal 12.0-15.0 [facility] Comment on above: Performed By: #### L 504.2610, L800.1280, L3400.0700, L501.6710, L500.4050, L100.0100, L803.2200, L3300.0100, L3100.5440, L503.6550, L3300.1200 ####[facility] [address] [facility] [place], [address] IG% 0.300 Normal 0.0-0.9 [facility] Comment on above: Result Comment: IG% - Immature Granulocytes (promyelocytes, myelocytes andmetamyelocytes) > 1% indicates that a LEFT SHIFT is Present. Performed By: #### L 504.2610, L800.1280, L3400.0700, L501.6710, L500.4050, L100.0100, L803.2200, L3300.0100, L3100.5440, L503.6550, L3300.1200 ####[facility] [address] [facility] [place], [address] Lymphocytes/100 WBC (Bld) 27.1 % Normal 19-41 [facility] Comment on above: Performed By: #### L 504.2610, L800.1280, L3400.0700, L501.6710, L500.4050, L100.0100, L803.2200, L3300.0100, L3100.5440, L503.6550, L3300.1200 ####[facility] [address] [facility] [place], [address] MCH (RBC) [Entitic mass] 31.7 pg Normal 27.0-32.0 [facility] Comment on above: Performed By: #### L 504.2610, L800.1280, L3400.0700, L501.6710, L500.4050, L100.0100, L803.2200, L3300.0100, L3100.5440, L503.6550, L3300.1200 ####[facility] [address] [facility] [place], [address] MCHC (RBC) [Mass/Vol] 33.6 g/dL Normal 32-36 [facility] Comment on above: Performed By: #### L 504.2610, L800.1280, L3400.0700, L501.6710, L500.4050, L100.0100, L803.2200, L3300.0100, L3100.5440, L503.6550, L3300.1200 ####[facility] [address] [facility] [place], [address] MCV (RBC) [Entitic vol] 94.5 fL Normal 81-99 [facility] Comment on above: Performed By: #### L 504.2610, L800.1280, L3400.0700, L501.6710, L500.4050, L100.0100, L803.2200, L3300.0100, L3100.5440, L503.6550, L3300.1200 ####[facility] [address] [place], [address] Monocytes/100 WBC (Bld) 5.8 % Normal 0-10 [facility] Comment on above: Performed By: #### L 504.2610, L800.1280, L3400.0700, L501.6710, L500.4050, L100.0100, L803.2200, L3300.0100, L3100.5440, L503.6550, L3300.1200 ####[facility] [address] [facility] [place], [address] Neutrophils/100 WBC (Bld) 63.2 % Normal 47-70 [facility] Comment on above: Performed By: #### L 504.2610, L800.1280, L3400.0700, L501.6710, L500.4050, L100.0100, L803.2200, L3300.0100, L3100.5440, L503.6550, L3300.1200 ####[facility] [address] [facility] [place], [address] Nucleated RBC (Bld) [#/Vol] 0 10*3/uL Normal 0-5 [facility] Comment on above: Performed By: #### L 504.2610, L800.1280, L3400.0700, L501.6710, L500.4050, L100.0100, L803.2200, L3300.0100, L3100.5440, L503.6550, L3300.1200 ####[facility] [address] [place], [address] Platelet mean volume (Bld) [Entitic vol] 11.0 fL Normal 6.2-12.0 [facility] Comment on above: Performed By: #### L 504.2610, L800.1280, L3400.0700, L501.6710, L500.4050, L100.0100, L803.2200, L3300.0100, L3100.5440, L503.6550, L3300.1200 ####[facility] [address] [place], [address] Platelets (Bld) [#/Vol] 235 10*3/uL Normal 150-450 [facility] Comment on above: Performed By: #### L 504.2610, L800.1280, L3400.0700, L501.6710, L500.4050, L100.0100, L803.2200, L3300.0100, L3100.5440, L503.6550, L3300.1200 ####[facility] [address] [place], [address] RBC (Bld) [#/Vol] 4.51 10*6/uL Normal 4.2-5.4 [facility] Comment on above: Performed By: #### L 504.2610, L800.1280, L3400.0700, L501.6710, L500.4050, L100.0100, L803.2200, L3300.0100, L3100.5440, L503.6550, L3300.1200 ####[facility] [address] [place], [address] RDW SD 42.5 fl Normal 35.1-43.9 [facility] Comment on above: Performed By: #### L 504.2610, L800.1280, L3400.0700, L501.6710, L500.4050, L100.0100, L803.2200, L3300.0100, L3100.5440, L503.6550, L3300.1200 ####[facility] [address] [place], [place], [phone] WBC (Bld) [#/Vol] 6.5 10*3/uL Normal 4.4-11.0 [facility] Comment on above: Performed By: #### L 504.2610, L800.1280, L3400.0700, L501.6710, L500.4050, L100.0100, L803.2200, L3300.0100, L3100.5440, L503.6550, L3300.1200 ####[facility] [address] [facility] [place], [address] CRPon 04-24-2024 C-REACTIVE PROT 7.69 mg/L High 0.0-3.0 [facility] Comment on above: Order Comment: 1 Result Comment: C-Re active Protein (CRP) provides useful information for thediagnosis, therapy and monitoring of inflammatory processesand associated diseases. For the evaluation of Relative Riskfor Cardiovascular Disease, a High Sensitivity CRP (HSCRP)should be ordered. Performed By: #### L 504.2610, L800.1280, L3400.0700, L501.6710, L500.4050, L100.0100, L803.2200, L3300.0100, L3100.5440, L503.6550, L3300.1200 ####[facility] [address] [place], [place], [phone] Comprehensive Metabolic Prof ilon 04-24-2024 Albumin [Mass/Vol] 4.0 g/dL Normal 3.2-5.0 [facility] Comment on above: Order Comment: 1 Performed By: #### L 504.2610, L800.1280, L3400.0700, L501.6710, L500.4050, L100.0100, L803.2200, L3300.0100, L3100.5440, L503.6550, L3300.1200 ####[facility] [address] [place], [address] Albumin/Globulin [Mass ratio] 1.1 {ratio} Normal 0.9-2.4 [facility] Comment on above: Order Comment: 1 Performed By: #### L 504.2610, L800.1280, L3400.0700, L501.6710, L500.4050, L100.0100, L803.2200, L3300.0100, L3100.5440, L503.6550, L3300.1200 ####[facility] [address] [place], [address] ALK P 97 U/L Normal 45-117 [facility] Comment on above: Order Comment: 1 Performed By: #### L 504.2610, L800.1280, L3400.0700, L501.6710, L500.4050, L100.0100, L803.2200, L3300.0100, L3100.5440, L503.6550, L3300.1200 ####[facility] [address] [place], [address] ALT [Catalytic activity/Vol] 20 U/L Normal 13-56 [facility] Comment on above: Order Comment: 1 Performed By: #### L 504.2610, L800.1280, L3400.0700, L501.6710, L500.4050, L100.0100, L803.2200, L3300.0100, L3100.5440, L503.6550, L3300.1200 ####[facility] [address] [place], [address] AST [Catalytic activity/Vol] 14 U/L Low 15-37 [facility] Comment on above: Order Comment: 1 Performed By: #### L 504.2610, L800.1280, L3400.0700, L501.6710, L500.4050, L100.0100, L803.2200, L3300.0100, L3100.5440, L503.6550, L3300.1200 ####[facility] [address] [place], [place], [phone] Bilirubin [Mass/Vol] 0.40 mg/dL Normal 0.20-1.00 [facility] Comment on above: Order Comment: 1 Result Comment: For patients on eltrombopag therapy, use of Dimension [place] TBIL is not recommended. Performed By: #### L 504.2610, L800.1280, L3400.0700, L501.6710, L500.4050, L100.0100, L803.2200, L3300.0100, L3100.5440, L503.6550, L3300.1200 ####[facility] [address] [place], [place], [phone] BUN/CRE 16.1 RATIO Normal 10-20 [facility] Comment on above: Order Comment: 1 Performed By: #### L 504.2610, L800.1280, L3400.0700, L501.6710, L500.4050, L100.0100, L803.2200, L3300.0100, L3100.5440, L503.6550, L3300.1200 ####[facility] [address] [place], [address]) CA,Total 9.4 mg/dL Normal 8.5-10.1 [facility] Comment on above: Order Comment: 1 Performed By: #### L 504.2610, L800.1280, L3400.0700, L501.6710, L500.4050, L100.0100, L803.2200, L3300.0100, L3100.5440, L503.6550, L3300.1200 ####[facility] [address] [place], [address] Chloride [Moles/Vol] 107 mmol/L Normal 98-107 [facility] Comment on above: Order Comment: 1 Performed By: #### L 504.2610, L800.1280, L3400.0700, L501.6710, L500.4050, L100.0100, L803.2200, L3300.0100, L3100.5440, L503.6550, L3300.1200 ####[facility] [address] [place], [address] CO2 [Moles/Vol] 26.0 mmol/L Normal 21.0-32.0 [facility] Comment on above: Order Comment: 1 Performed By: #### L 504.2610, L800.1280, L3400.0700, L501.6710, L500.4050, L100.0100, L803.2200, L3300.0100, L3100.5440, L503.6550, L3300.1200 ####[facility] [address] [place], [address] Creatinine [Mass/Vol] 0.81 mg/dL Normal 0.55-1.02 [facility] Comment on above: Order Comment: 1 Result Comment: The validity of the calculated GFR GFRAA in patients over70 years has not been determined. Clinical correlation isessential. Performed By: #### L 504.2610, L800.1280, L3400.0700, L501.6710, L500.4050, L100.0100, L803.2200, L3300.0100, L3100.5440, L503.6550, L3300.1200 ####[facility] [address] [place], [address] EST GFR - AA 94 mL/min Normal >60 [facility] Comment on above: Order Comment: 1 Result Comment: Afri can Israeli GFR Calc Performed By: #### L 504.2610, L800.1280, L3400.0700, L501.6710, L500.4050, L100.0100, L803.2200, L3300.0100, L3100.5440, L503.6550, L3300.1200 ####[facility] [address] [place], [address] GAP 5 Normal 5-15 [facility] Comment on above: Order Comment: 1 Performed By: #### L 504.2610, L800.1280, L3400.0700, L501.6710, L500.4050, L100.0100, L803.2200, L3300.0100, L3100.5440, L503.6550, L3300.1200 ####[facility] [address] [place], [address] GFR/1.73 sq M.predicted among non-blacks MDRD (S/P/Bld) [Vol rate/Area] 77 mL/min/{1.73_m2} Normal >60 [facility] Comment on above: Order Comment: 1 Result Comment: Non- GFR Calc Performed By: #### L 504.2610, L800.1280, L3400.0700, L501.6710, L500.4050, L100.0100, L803.2200, L3300.0100, L3100.5440, L503.6550, L3300.1200 ####[facility] [address] [place], [address] Globulin (S) [Mass/Vol] 3.6 g/dL Normal 2.2-4.2 [facility] Comment on above: Order Comment: 1 Performed By: #### L 504.2610, L800.1280, L3400.0700, L501.6710, L500.4050, L100.0100, L803.2200, L3300.0100, L3100.5440, L503.6550, L3300.1200 ####[facility] [address] [place], [address] Glucose [Mass/Vol] 101 mg/dL Normal 74-106 [facility] Comment on above: Order Comment: 1 Result Comment: Fast ing Glucose result from 100 to 125 mg/dLsuggests IMPAIRED HOMEOSTASIS per A.D.A. criteria. Performed By: #### L 504.2610, L800.1280, L3400.0700, L501.6710, L500.4050, L100.0100, L803.2200, L3300.0100, L3100.5440, L503.6550, L3300.1200 ####[facility] [address] [place], [address] Potassium [Moles/Vol] 4.0 mmol/L Normal 3.5-5.1 [facility] Comment on above: Order Comment: 1 Performed By: #### L 504.2610, L800.1280, L3400.0700, L501.6710, L500.4050, L100.0100, L803.2200, L3300.0100, L3100.5440, L503.6550, L3300.1200 ####[facility] [address] [place], [address] Sodium [Moles/Vol] 138 mmol/L Normal 136-145 [facility] Comment on above: Order Comment: 1 Performed By: #### L 504.2610, L800.1280, L3400.0700, L501.6710, L500.4050, L100.0100, L803.2200, L3300.0100, L3100.5440, L503.6550, L3300.1200 ####[facility] [address] [place], [address] T PROT 7.6 g/dL Normal 6.4-8.2 [facility] Comment on above: Order Comment: 1 Performed By: #### L 504.2610, L800.1280, L3400.0700, L501.6710, L500.4050, L100.0100, L803.2200, L3300.0100, L3100.5440, L503.6550, L3300.1200 ####[facility] [address] [place], [address] Urea nitrogen [Mass/Vol] 13 mg/dL Normal 7-18 [facility] Comment on above: Order Comment: 1 Performed By: #### L 504.2610, L800.1280, L3400.0700, L501.6710, L500.4050, L100.0100, L803.2200, L3300.0100, L3100.5440, L503.6550, L3300.1200 ####[facility] [address] [place], [address] Ferritinon 04-24-2024 Ferritin [Mass/Vol] 60 ng/mL Normal 8-252 [facility] Comment on above: Order Comment: 1 Performed By: #### L 504.2610, L800.1280, L3400.0700, L501.6710, L500.4050, L100.0100, L803.2200, L3300.0100, L3100.5440, L503.6550, L3300.1200 ####[facility] [address] [place], [place], [phone] Gastroenterology Visit Repor ton 04-24-2024 Gastroenterology Visit Report Normal [facility] LDHon 04-24-2024 LDH 204 U/L Normal 84-246 [facility] Comment on above: Order Comment: 1 Performed By: #### L 504.2610, L800.1280, L3400.0700, L501.6710, L500.4050, L100.0100, L803.2200, L3300.0100, L3100.5440, L503.6550, L3300.1200 ####[facility] [address] [place], [address] [facility] Telephone (AGSPINE2) Lucita SARAH MENDES ([id number]) 1965 F Date Time Provider Department 04/16/24 GAYATHRI BOWDEN AGSPINE2 During your visit today, we recorded the following information about you: Gayathri Bowden, DIRECTOR INDUSTRIAL RELATIONS.KEVIN 04/16/2024 6:44 AM Signed OK to schedule for back pain, consult for treatment only, no meds Records from PCP placed into scan Gayathri Bowden APRN.Luis Montoya 04/16/2024 10:35 AM Signed Attempted to call and schedule appointment, but there's a recording that said it could not be connected. Luis Holcomb 04/18/2024 9:02 AM Signed 2nd attempt to call patient to schedule appt but the phone # on file fails to connect. Luis Bruner Allergies As of Date: 04/16/2024 Noted Allergy Reaction CODEINE 07/17/2011 14 - Other: See Comments Comments: Can not sleep nasal sprays [Other] 03/22/2007 SULFA (SULFONAMIDE ANTIBIOTICS) 08/12/2011 2 - Rash URECHOLINE (BETHANECHOL CHLORIDE) 09/19/2006 5 - Intolerance Date Reviewed: 08/08/2020 Reviewed by: Lexie Bright (Rn), RN - Fully Assessed Reason for Visit: New Patient [172] Prescriptions as of 04/18/2024 - DULoxetine (CYMBALTA) 60 mg capsule Take 1 capsule by mouth once daily. - buPROPion XL (WELLBUTRIN XL) 300 mg 24 hr tablet Take 1 tablet by mouth once daily. - QUEtiapine (SEROQUEL) 200 mg tablet Take 1 tablet by mouth daily at bedtime. - LORazepam (ATIVAN) 1 mg tablet Take 1 mg by mouth every 8 hours as needed. - metoprolol succinate ER (TOPROL XL) 25 mg 24 hr tablet Take 50 mg by mouth once daily. - pantoprazole DR (PROTONIX) 40 mg tablet Take 20 mg by mouth once daily. Problem List As Of Date 04/16/2024 Noted Resolved Moderate mixed bipolar I disorder (HCC) [F31.62]09/13/2006 08/08/2020 Generalized anxiety disorder [F41.1] 09/13/2006 Attention deficit hyperactivity disorder (ADHD)*09/13/2006 PERS HX TOBACCO USE [Z87.891] LUMBAGO [M54.50] DIFFUS CYSTIC MASTOPATHY [N60.19] Lumbosacral spondylosis without myelopathy [M47*01/12/2007 Obstructive sleep apnea (adult) (pediatric) [G4*03/01/2007 Acid reflux [K21.9] Diarrhea [R19.7] Suicidal ideations [R45.851] 10/13/2018 08/08/2020 Unspecified urinary incontinence [R32] 10/14/2018 Laceration of left upper extremity [S41.112A] 10/14/2018 Malnutrition of mild degree (HCC) [E44.1] 10/14/2018 Chronic prescription benzodiazepine use [Z79.89*10/15/2018 Self-esteem disturbance [R45.89] 10/16/2018 Borderline personality disorder (HCC) [F60.3] 10/16/2018 08/08/2020 Obesity, Class I, BMI 30-34.9 [E66.9] 10/18/2018 MDD (major depressive disorder) [F32.9] 08/04/2020 Encounter Status:Closed by GAYATHRI BOWDEN on 04/16/24 [facility] 04-12-2024 [place] Telephone (AGSPINE2) SARAH SAVAGE ([id number]) 1965 F Date Time Provider Department 04/12/24 [facility] During your visit today, we recorded the following information about you: Gayathri Bowden APRN.[employer]OS [employer]ISHER 04/12/2024 7:04 AM Signed OK to schedule for neck and back pain, consult for treatment only, no meds as she is on daily benzodiazepines Records from PCP placed into vickey Bowden APRN.Linette Cuello 04/12/2024 2:54 PM Signed Attempted multiple times to call and schedule appt, phone recording said it could not be connected. I sent pt a mychart message. Linette Rios 04/20/2024 8:12 AM Signed 2nd attempt Called multiple times to call and schedule appt, phone recording said it could not be connected. I sent pt a mychart message. Linette Phillip Allergies As of Date: 04/12/2024 Noted Allergy Reaction CODEINE 07/17/2011 14 - Other: See Comments Comments: Can not sleep nasal sprays [Other] 03/22/2007 SULFA (SULFONAMIDE ANTIBIOTICS) 08/12/2011 2 - Rash URECHOLINE (BETHANECHOL CHLORIDE) 09/19/2006 5 - Intolerance Date Reviewed: 08/08/2020 Reviewed by: Lexie Bright (Rn), RN - Fully Assessed Reason for Visit: New Patient [172] Prescriptions as of 04/20/2024 - DULoxetine (CYMBALTA) 60 mg capsule Take 1 capsule by mouth once daily. - buPROPion XL (WELLBUTRIN XL) 300 mg 24 hr tablet Take 1 tablet by mouth once daily. - QUEtiapine (SEROQUEL) 200 mg tablet Take 1 tablet by mouth daily at bedtime. - LORazepam (ATIVAN) 1 mg tablet Take 1 mg by mouth every 8 hours as needed. - metoprolol succinate ER (TOPROL XL) 25 mg 24 hr tablet Take 50 mg by mouth once daily. - pantoprazole DR (PROTONIX) 40 mg tablet Take 20 mg by mouth once daily. Problem List As Of Date 04/12/2024 Noted Resolved Moderate mixed bipolar I disorder (HCC) [F31.62]09/13/2006 08/08/2020 Generalized anxiety disorder [F41.1] 09/13/2006 Attention deficit hyperactivity disorder (ADHD)*09/13/2006 PERS HX TOBACCO USE [Z87.891] LUMBAGO [M54.50] DIFFUS CYSTIC MASTOPATHY [N60.19] Lumbosacral spondylosis without myelopathy [M47*01/12/2007 Obstructive sleep apnea (adult) (pediatric) [G4*03/01/2007 Acid reflux [K21.9] Diarrhea [R19.7] Suicidal ideations [R45.851] 10/13/2018 08/08/2020 Unspecified urinary incontinence [R32] 10/14/2018 Laceration of left upper extremity [S41.112A] 10/14/2018 Malnutrition of mild degree (HCC) [E44.1] 10/14/2018 Chronic prescription benzodiazepine use [Z79.89*10/15/2018 Self-esteem disturbance [R45.89] 10/16/2018 Borderline personality disorder (HCC) [F60.3] 10/16/2018 08/08/2020 Obesity, Class I, BMI 30-34.9 [E66.9] 10/18/2018 MDD (major depressive disorder) [F32.9] 08/04/2020 Medications Discontinued During This Encounter Prescriptions - celecoxib (CELEBREX) 200 mg capsule (Discontinued) Take 200 mg by mouth twice daily. - gabapentin (NEURONTIN) 300 mg capsule (Discontinued) Take 3 capsules by mouth daily at bedtime for 90 days. - levomefolate calcium (DEPLIN ORAL) (Discontinued) Take 15 mg by mouth once daily. - tiZANidine HCl 4 mg capsule (Discontinued) Take 8 mg by mouth daily at bedtime. Encounter Status:Closed by GAYATHRI BOWDEN on 04/12/24 [facility] .Auto Diffon 12-14-2023 Basophil, Absolute 0.0 10 3/mcL Normal 0.0-0.2 [facility] ([place]) Comment on above: Performed By: #### C MP, ANEU, LIPID, CBC, GFR, ADIFF ####[address] [place], [place] [address] Basophils/100 WBC (Bld) 0.7 % Normal 0.0-2.5 [facility] ([place]) Comment on above: Performed By: #### C MP, ANEU, LIPID, CBC, GFR, ADIFF ####[address] [place], [place] [address] Eosinophil, Absolute 0.3 10 3/mcL Normal 0.0-0.4 [facility] ([place]) Comment on above: Performed By: #### C MP, ANEU, LIPID, CBC, GFR, ADIFF ####[address] [place], [place] [address] Eosinophils/100 WBC (Bld) 4.4 % Normal 0.0-7.0 [facility] ([place]) Comment on above: Performed By: #### C MP, ANEU, LIPID, CBC, GFR, ADIFF ####[address] [place], [place] [address] Lymphocyte, Absolute 2.3 10 3/mcL Normal 0.8-3.9 [facility] ([place]) Comment on above: Performed By: #### C MP, ANEU, LIPID, CBC, GFR, ADIFF ####[address] [place], [place] [address] Lymphocytes/100 WBC (Bld) 35.7 % Normal 10.0-50.0 [facility] ([place]) Comment on above: Performed By: #### C MP, ANEU, LIPID, CBC, GFR, ADIFF ####[address] [place], [place] [address] Monocyte, Absolute 0.4 10 3/mcL Normal 0.2-1.0 [facility] ([place]) Comment on above: Performed By: #### C MP, ANEU, LIPID, CBC, GFR, ADIFF ####[address] [place], [place] [address] Monocytes/100 WBC (Bld) 6.1 % Normal 1.7-13.0 [facility] ([place]) Comment on above: Performed By: #### C MP, ANEU, LIPID, CBC, GFR, ADIFF ####[address] [place], [place] [address] Neutrophils/100 WBC (Bld) 53.1 % Normal 37.0-80.0 [facility] ([place]) Comment on above: Performed By: #### C MP, ANEU, LIPID, CBC, GFR, ADIFF ####[address] [place], [place] [address] .GFRon 12-14-2023 GFR Non- 68 ml/min/1.73sqm Normal [facility] ([place]) Comment on above: Result Comment: GFR Population mean for , Non- Americans Ages 20-29 = 116 mL/min/1.73 sq.m. Ages 30-39 = 107 mL/min/1.73 sq.m. Ages 40-49 = 99 mL/min/1.73 sq.m. Ages 50-59 = 93 mL/min/1.73 sq.m. Ages 60-69 = 85 mL/min/1.73 sq.m. Ages 70+ = 75 mL/min/1.73 sq.m. Chronic Kidney Disease: Less than 60 mL/min/1.73 square meters End Stage Renal Disease: Less than 15 mL/min/1.73 square meters Performed By: #### C MP, ANEU, LIPID, CBC, GFR, ADIFF ####[address] [place], [place] [address] GFR 82 ml/min/1.73sqm Normal [facility] ([place]) Comment on above: Result Comment: GFR Population mean for , Non- Americans Ages 20-29 = 116 mL/min/1.73 sq.m. Ages 30-39 = 107 mL/min/1.73 sq.m. Ages 40-49 = 99 mL/min/1.73 sq.m. Ages 50-59 = 93 mL/min/1.73 sq.m. Ages 60-69 = 85 mL/min/1.73 sq.m. Ages 70+ = 75 mL/min/1.73 sq.m. Chronic Kidney Disease: Less than 60 mL/min/1.73 square meters End Stage Renal Disease: Less than 15 mL/min/1.73 square meters Performed By: #### C MP, ANEU, LIPID, CBC, GFR, ADIFF ####[address] [place], [place] [address] .NEUABSon 12-14-2023 Neutrophil, Absolute 3.4 10 3/mcL Normal 2.9-6.2 [facility] ([place]) Comment on above: Performed By: #### C MP, ANEU, LIPID, CBC, GFR, ADIFF ####[address] [place], [place] [address] CBCon 12-14-2023 Erythrocyte distribution width (RBC) [Ratio] 12.9 % Normal 11.5-14.5 [facility] ([place]) Comment on above: Performed By: #### C MP, ANEU, LIPID, CBC, GFR, ADIFF ####[address] [place], [place] [address] Hematocrit (Bld) [Volume fraction] 37.2 % Normal 37.0-47.0 [facility] ([place]) Comment on above: Performed By: #### C MP, ANEU, LIPID, CBC, GFR, ADIFF ####[address] [place], [place] [address] Hgb 13.2 G/dL Normal 12.0-16.0 [facility] ([place]) Comment on above: Performed By: #### C MP, ANEU, LIPID, CBC, GFR, ADIFF ####[address] [place], [place] [address] MCH (RBC) [Entitic mass] 32.6 pg High 27.0-31.2 [facility] ([place]) Comment on above: Performed By: #### C MP, ANEU, LIPID, CBC, GFR, ADIFF ####[address] [place], [place] [address] MCHC 35.6 G/dL Normal 33.0-37.0 [facility] ([place]) Comment on above: Performed By: #### C MP, ANEU, LIPID, CBC, GFR, ADIFF ####[address] [place], [place] [address] MCV (RBC) [Entitic vol] 91.6 fL Normal 80.0-94.0 [facility] ([place]) Comment on above: Performed By: #### C MP, ANEU, LIPID, CBC, GFR, ADIFF ####[address] [place], [place] [address] Platelet 207 10 3/mcL Normal 130-400 [facility] ([place]) Comment on above: Performed By: #### C MP, ANEU, LIPID, CBC, GFR, ADIFF ####[address] [place], [place] [address] Platelet mean volume (Bld) [Entitic vol] 10.2 fL Normal 7.4-10.4 [facility] ([place]) Comment on above: Performed By: #### C MP, ANEU, LIPID, CBC, GFR, ADIFF ####[address] [place], [place] [address] RBC 4.06 10 6/mcL Low 4.20-5.40 [facility] ([place]) Comment on above: Performed By: #### C MP, ANEU, LIPID, CBC, GFR, ADIFF ####[address] [place], [place] [address] WBC 6.4 10 3/mcL Normal 4.6-10.8 [facility] ([place]) Comment on above: Performed By: #### C MP, ANEU, LIPID, CBC, GFR, ADIFF ####[address] [place], [place] [address] CMPon 12-14-2023 Albumin Level 3.4 G/dL Low 3.5-5.0 [facility] ([place]) Comment on above: Performed By: #### C MP, ANEU, LIPID, CBC, GFR, ADIFF ####[address] [place], [place] [address] Albumin/Globulin [Mass ratio] 1.2 {ratio} Normal 1.1-2.5 [facility] ([place]) Comment on above: Performed By: #### C MP, ANEU, LIPID, CBC, GFR, ADIFF ####[address] [place], [place] [address] ALP [Catalytic activity/Vol] 86 U/L Normal 40-135 [facility] ([place]) Comment on above: Performed By: #### C MP, ANEU, LIPID, CBC, GFR, ADIFF ####[address] [place], [place] [address] ALT [Catalytic activity/Vol] 20 U/L Normal 14-59 [facility] ([place]) Comment on above: Performed By: #### C MP, ANEU, LIPID, CBC, GFR, ADIFF ####[address] [place], [place] [address] AST [Catalytic activity/Vol] 16 U/L Normal 10-40 [facility] ([place]) Comment on above: Performed By: #### C MP, ANEU, LIPID, CBC, GFR, ADIFF ####[address] [place], [place] [address] Bili Total 0.4 mg/dL Normal 0.2-1.0 [facility] ([place]) Comment on above: Result Comment: Use of this assay is not recommended for patients undergoing treatment with eltrombopag due to the potential for falsely elevated results. Performed By: #### C MP, ANEU, LIPID, CBC, GFR, ADIFF ####[address] [place], [place] [address] BUN/Creatinine Ratio 12 ratio Normal 7-27 [facility] ([place]) Comment on above: Performed By: #### C MP, ANEU, LIPID, CBC, GFR, ADIFF ####[address] [place], [place] [address] Calcium [Mass/Vol] 8.5 mg/dL Normal 8.4-10.2 [facility] ([place]) Comment on above: Performed By: #### C MP, ANEU, LIPID, CBC, GFR, ADIFF ####[address] [place], [place] [address] Chloride [Moles/Vol] 106 mmol/L Normal 98-107 [facility] ([place]) Comment on above: Performed By: #### C MP, ANEU, LIPID, CBC, GFR, ADIFF ####[address] [place], [place] [address] CO2 [Moles/Vol] 26 mmol/L Normal 22-29 [facility] ([place]) Comment on above: Performed By: #### C MP, ANEU, LIPID, CBC, GFR, ADIFF ####[address] [place], [place] [address] Creatinine [Mass/Vol] 0.86 mg/dL Normal 0.55-1.02 [facility] ([place]) Comment on above: Performed By: #### C MP, ANEU, LIPID, CBC, GFR, ADIFF ####[address] [place], [place] [address] Electrolyte Balance 13.0 mEq/L Normal 4.0-15.0 [facility] ([place]) Comment on above: Performed By: #### C MP, ANEU, LIPID, CBC, GFR, ADIFF ####[address] [place], [place] [address] Globulin 2.9 G/dL Normal [facility] ([place]) Comment on above: Performed By: #### C MP, ANEU, LIPID, CBC, GFR, ADIFF ####[address] [place], [place] [address] Glucose [Mass/Vol] 96 mg/dL Normal 70-105 [facility] ([place]) Comment on above: Performed By: #### C MP, ANEU, LIPID, CBC, GFR, ADIFF ####[address] [place], [place] [address] Potassium [Moles/Vol] 4.6 mmol/L Normal 3.5-5.1 [facility] ([place]) Comment on above: Performed By: #### C MP, ANEU, LIPID, CBC, GFR, ADIFF ####[address] [place], [place] [address] Sodium [Moles/Vol] 145 mmol/L Normal 136-145 [facility] ([place]) Comment on above: Performed By: #### C MP, ANEU, LIPID, CBC, GFR, ADIFF ####[address] [place], [place] [address] Total Protein 6.3 G/dL Low 6.4-8.2 [facility] ([place]) Comment on above: Performed By: #### C MP, ANEU, LIPID, CBC, GFR, ADIFF ####[address] [place], [place] [address] Urea nitrogen [Mass/Vol] 10 mg/dL Normal 7-18 [facility] ([place]) Comment on above: Performed By: #### C MP, ANEU, LIPID, CBC, GFR, ADIFF ####[address] [place], [place] [address] LIPIDon 12-14-2023 Cholesterol [Mass/Vol] 214 mg/dL High 0-200 [facility] ([place]) Comment on above: Result Comment: Chol esterol Reference Interval: Less than 200 Desirable 200-239 Borderline high risk 240 and above High risk Performed By: #### C MP, ANEU, LIPID, CBC, GFR, ADIFF ####[address] [place], [place] [address] Cholesterol in HDL [Mass/Vol] 43 mg/dL Normal 40-60 [facility] ([place]) Comment on above: Performed By: #### C MP, ANEU, LIPID, CBC, GFR, ADIFF ####[address] [place], [place] [address] Cholesterol in LDL [Mass/Vol] 133 mg/dL High 0-130 [facility] ([place]) Comment on above: Performed By: #### C MP, ANEU, LIPID, CBC, GFR, ADIFF ####[address] [place], [place] [address] Triglyceride [Mass/Vol] 188 mg/dL High 0-150 [facility] ([place]) Comment on above: Result Comment: Trig lyceride Reference Interval: Less than 150 Normal 150-199 Borderline high risk 200-499 High risk 500 or higher Very high risk Performed By: #### C MP, ANEU, LIPID, CBC, GFR, ADIFF ####[address] [place], [place] [address] ALCOHOLon 07-25-2023 Ethanol [Mass/Vol] mg/dL Normal [facility] Comment on above: Result Comment: Note : Alcohol values performed at [facility] are performed on serum or plasma and reported in mg/dl, which is different then the state reporting units of g/dl which is performed on whole blood. Result reporting units are based on test methodology and are not interchangable. Performed By: #### 9 [id number], 373923, 741293, 879858, 130076 ####[facility] [address] [place] [address] Medical Director: Zafar Larios MD AUTO DIFFon 07-25-2023 Baso Count 0.06 x1000 Normal 0.00-0.20 [facility] Comment on above: Performed By: #### 9 [id number], 315252, 276087, 116924, 102746 #### [facility] [address] [place] [address] Sales Agent: Zafar Larios MD Basos % 0.8 % Normal [facility] Comment on above: Performed By: #### 9 [id number], 853443, 312683, 841328, 772523 #### [facility] [address] [place] [address] Sales Agent: Zafar Larios MD Eos Count 0.23 x1000 Normal 0.00-0.50 [facility] Comment on above: Performed By: #### 9 588204, 534149, 656786, 312897, 652734 #### [facility] [address] [place] [address] Sales Agent: Zafar Larios MD Eosinophils/100 WBC (Bld) 2.9 % Normal [facility] Comment on above: Performed By: #### 9 496374, 138199, 448165, 680837, 162309 #### [facility] [address] [place] [address] Sales Agent: Zafar Larios MD Lymph Count 1.68 x1000 Normal 1.20-4.80 [facility] Comment on above: Performed By: #### 9 397251, 450023, 002427, 383955, 236102 #### [facility] [address] [place] [address] Sales Agent: Zafar Larios MD Lymphocytes/100 WBC (Bld) 21.2 % Normal [facility] Comment on above: Performed By: #### 9 050220, 480955, 240573, 789985, 569525 #### [facility] [address] [place] [address] Sales Agent: Zafar Larios MD Dixie Count 0.48 x1000 Normal 0.10-1.00 [facility] Comment on above: Performed By: #### 9 464666, 583205, 720146, 850340, 071275 #### [facility] [address] [place] [address] Sales Agent: Zafar Larios MD Monocytes/100 WBC (Bld) 6.0 % Normal [facility] Comment on above: Performed By: #### 9 218928, 578039, 670045, 755420, 940211 #### [facility] [address] [place] [address] Sales Agent: Zafar Larios MD Neutrophil Count (ANC) 5.48 x1000 Normal 1.40-8.80 [facility] Comment on above: Performed By: #### 9 706930, 005244, 395990, 237925, 454969 #### [facility] [address] [place] [address] Sales Agent: Zafar Larios MD Neutrophils/100 WBC (Bld) 69.1 % Normal [facility] Comment on above: Performed By: #### 9 005400, 877286, 718407, 452811, 682627 #### [facility] [address] [place] [address] Sales Agent: Zafar Larios MD COMPMETAojose m 07-25-2023 Albumin [Mass/Vol] 3.6 g/dL Normal 3.4-5.0 [facility] Comment on above: Performed By: #### 9 074053, 452950, 078520, 071030, 871570 #### [facility] [address] [place] [address] Sales Agent: Zafar Larios MD Albumin/Globulin [Mass ratio] 1.4 {ratio} Normal [facility] Comment on above: Performed By: #### 9 964105, 595966, 995108, 026212, 215567 #### [facility] [address] [place], [place] [phone] Sales Agent: Zafar Larios MD Alk Phos 83 unit/L Normal 46-116 [facility] Comment on above: Performed By: #### 9 177027, 278554, 008193, 577652, 739647 #### [facility] [address] [place] [address] Sales Agent: Zafar Larios MD Bilirubin [Mass/Vol] 0.80 mg/dL Normal 0.20-1.00 [facility] Comment on above: Result Comment: Use of this assay is not recommended for patients undergoing treatment with eltrombopag due to the potential for falsely elevated results. Performed By: #### 9 708962, 134828, 838951, 068137, 117158 #### [facility] [address] [place] [address] Sales Agent: Zafar Larios MD Calcium [Mass/Vol] 8.7 mg/dL Normal 8.7-10.4 [facility] Comment on above: Performed By: #### 9 654294, 291054, 448189, 252052, 727535 #### [facility] [address] [place] [address] Sales Agent: Zafar Larios MD Chloride [Moles/Vol] 108 mmol/L High 98-107 [facility] Comment on above: Performed By: #### 9 988032, 300166, 912048, 197144, 073940 #### [facility] [address] [place] [address] Sales Agent: Zafar Larios MD CO2 [Moles/Vol] 24.0 mmol/L Normal 20.0-31.0 [facility] Comment on above: Performed By: #### 9 249046, 195105, 040303, 289528, 097432 #### [facility] [address] [place] [address] Sales Agent: Zafar Larios MD Creatinine [Mass/Vol] 0.7 mg/dL Normal 0.5-0.8 [facility] Comment on above: Performed By: #### 9 417077, 087740, 275339, 613459, 477034 #### [facility] [address] [place] [address] Sales Agent: Zafar Larios MD GFR AA >60 Normal [facility] Comment on above: Result Comment: Afri can Israeli GFR Calc Medical judgement is necessary to interpret GFR. The calculated GFR may not accurately reflect renal status in patients >70 years, women, acutely ill hospitalized patients and patients with acute renal failure or known renal disease. The MDRD GFR formula is valid only for adults greater than 18 years of age. Note: Creatinine clearance (not GFR) should be used for drug dosing. Performed By: #### 9 257834, 732440, 961475, 995233, 757081 #### [facility] [address] [place] [address] Sales Agent: Zafar Larios MD Globulin (S) [Mass/Vol] 2.5 g/dL Normal [facility] Comment on above: Performed By: #### 9 443947, 364052, 240121, 874787, 037883 #### [facility] [address] [place] [address] Sales Agent: Zafar Larios MD Glomerular Filtration Rate >60 Normal [facility] Comment on above: Result Comment: Non- GFR Calc Medical judgement is necessary to interpret GFR. The calculated GFR may not accurately reflect renal status in patients >70 years, women, acutely ill hospitalized patients and patients with acute renal failure or known renal disease. The MDRD GFR formula is valid only for adults greater than 18 years of age. Note: Creatinine clearance (not GFR) should be used for drug dosing. Performed By: #### 9 012316, 470474, 122050, 292289, 049701 #### [facility] [address] [place] [address] Sales Agent: Zafar Larios MD Glucose [Mass/Vol] 100 mg/dL Normal 74-106 [facility] Comment on above: Performed By: #### 9 962884, 941792, 775599, 277746, 241409 #### [facility] [address] [place] [address] Sales Agent: Zafar Larios MD GOT 17 unit/L Normal 15-37 [facility] Comment on above: Performed By: #### 9 862248, 209278, 632027, 355438, 656442 #### [facility] [address] [place] [address] Sales Agent: Zafar Larios MD GPT 18 unit/L Normal 10-49 [facility] Comment on above: Performed By: #### 9 169170, 829513, 711985, 530363, 151542 #### [facility] [address] [place] [address] Sales Agent: Zafar Larios MD Osmolality [Osmolality] 279 mosm/kg Normal 275-295 [facility] Comment on above: Performed By: #### 9 374427, 947469, 028346, 949631, 293576 #### [facility] [address] [place] [address] Sales Agent: Zafar Larios MD Potassium [Moles/Vol] 4.1 mmol/L Normal 3.5-5.1 [facility] Comment on above: Performed By: #### 9 086601, 745439, 380057, 723156, 515532 #### [facility] [address] [place] [address] Sales Agent: Zafar Larios MD Protein [Mass/Vol] 6.1 g/dL Normal 5.7-8.2 [facility] Comment on above: Result Comment: Tota l Protein results may be increased in patients receiving dextran as a blood volume painting machine operator Performed By: #### 9 689848, 471022, 446261, 694093, 050069 #### [facility] [address] [place] [address] Sales Agent: Zafar Larios MD Sodium [Moles/Vol] 140 mmol/L Normal 135-145 [facility] Comment on above: Performed By: #### 9 241349, 707671, 545689, 733243, 484427 #### [facility] [address] [place] [address] Sales Agent: Zafar Larios MD Urea nitrogen [Mass/Vol] 10 mg/dL Normal 9-23 [facility] Comment on above: Result Comment: - Ve nipuncture should occur prior to N-Acetyl Cysteine (NAC) or Metamizole (Sulpyrine) administration due to the potential for falsely depressed results. - Blood samples from some patients with monoclonal gammopathies may produce falsely elevated results Performed By: #### 9 185014, 891597, 078721, 706968, 963411 #### [facility] [address] [place] [address] Sales Agent: Zafar Larios MD Urea nitrogen/Creatinine [Mass ratio] 14.3 mg/mg Normal [facility] Comment on above: Performed By: #### 9 572344, 717059, 691368, 505785, 617709 #### [facility] [address] [place] [address] Sales Agent: Zafar Larios MD COVID-19 Molecular SWEDon SARS-CoV-2 (COVID-19) RNA MARYBETH+probe Ql (Unsp spec) Negative Normal [facility] Comment on above: Result Comment: This assay is designed to detect the RdRp target of SARS-CoV-2 using rapid molecular isothermal amplification technology. A Negative result does not preclude the possibility of COVID 19 infection since the adequacy of sample collection and/or low viral burden may result in the presence of viral nucleic acids below the analytical sensitivity of this test method. Test results should be used along with other clinical and laboratory data in making the diagnosis. This test has received FDA Emergency Use Authorization and has been verified by [facility]. This test is only authorized for the duration of the declaration and circumstances that exist to justify the authorization of the emergency use of the in vitro diagnostic tests for the detection of SARS-CoV-2 virus and/or diagnosis of COVID-19 infection under section 564(b)(1) of the Act. 21 U.S.C. 360bbb-3(b)(1), unless the authorization is terminated or revoked sooner. This testing was performed in the [facility] laboratory located at [[place] [address]] Performed By: #### C [id number] #### [facility] [address] [place] [address] Sales Agent: MD CORY Dowd Progress Note-ED Nurseon 07-25-2023 CORY Progress Note-ED Nurse THE PATIENT REPORTS SUICIDAL IDEATION FOR AT LEAST A MONTH. THE PATIENT REPORTS PLAYING CALL OF DUTY FOR AT LEAST A COUPLE HOURS A DAY IT HELPS ME SOMEHOW.' SHE STATES. THE PATIENT REPORTS THAT OFF AND ON FOR WEEKS I HAVE HAD SUICIDAL THOUGHTS. THE PATIENT REPORTS THAT SHE HAS A GUN IN HER HOME. THE PATIENT REPORTS THOUGHTS OF OVERDOSING OR USING HER GUN. I THINK THE MEDICATION IS ALL MESSED UP. THEY ADJUSTED IT A MONTH AGO. THE PATIENT IS TAKING GENERIC VIBRID AND CLONAPIN 1 MG TWICE A DAY. THE PATIENT REPORTS USING MARIJUANA YESTERDAY..INFUSION POWDER IN A DRINK. THE PATIENT'S PARTNER OF 25 YEARS IS AT BEDSIDE. SHE REPORTS SHE IS NEVER LIKE THIS. SHE HAS ANGRY OUTBURSTS. I SWEAR HER MEDICATIONS ARE WRONG. THE PATIENT IS CALM AND COOPERATIVE. CALIING REPORT TO [facility]. ADMIT [facility] S-4, DR. HERNADEZ. [facility] IS PREPARED FOR TRANSPORT. THE ETA ON TRANSPORT IS ON SCENE TO [facility] VIA PHYSIC[facility]UL[facility]. Normal [facility] ED Adult Data - Texton 07-25 ED Adult Data - Text ED Adult Data Entered On: 07/25/2023 14:05 EDT Performed On: 07/25/2023 14:04 EDT by Julissa Crawford RN Arrival Information Information Given by : Patient Accompanied By : Other: Referral Source ED : Other: [facility] Mode of Arrival : Car / Walk-In Airway : Normal Breathing : Normal Circulation : Normal Julissa Crawford RN - 07/25/2023 14:04 EDT Screening-General Meds Triage : Other: Accept Blood Products if Necessary : Yes Immunizations Current : Unknown Last Tetanus : Less than 5 years Preferred Verbal : Danish Preferred Written : Danish Julissa Crawford RN - 07/25/2023 14:04 EDT Depression Screening Patient able to verbalize? : Yes Feeling Down, Depressed, Hopeless : Not at all Little Interest - Pleasure in Activities : Not at all Initial Depression Screen Score : 0 Depression Screening Score 0 : No IP Pt being evaluated or treated for BH conditions : No Julissa Crawford RN - 07/25/2023 14:04 EDT Screening-Safety Abuse/Violence Concerns? : Patient denies Does the patient have a medically restricted extremity? : No Julissa Crawford RN - 07/25/2023 14:04 EDT Problem List Problem List obtained from : Patient Julissa Crawford RN - 07/25/2023 14:04 EDT (As Of: 07/25/2023 14:05:42 EDT) Diagnoses(Active) Suicidal ideation Date: 07/25/2023 ; Diagnosis Type: Reason For Visit ; Confirmation: Confirmed ; Clinical Dx: Suicidal ideation ; Classification: Medical ; Clinical Service: Non-Specified ; Code: PNED ; Probability: 0 ; Diagnosis Code: [id number] Procedure History ED Devices Present on Arrival To ED : None Urinary Catheter Present on Admit to ED : No Julissa Crawford RN - 07/25/2023 14:04 EDT - Procedure History (As Of: 07/25/2023 14:05:42 EDT) Social History Does pt have any alcohol,drugs or tobacco : No Do you consume Alcohol : No Social History obtained from : Patient Julissa Crawford RN - 07/25/2023 14:04 EDT Social History (As Of: 07/25/2023 14:05:42 EDT) Alcohol: Current (Last Updated: 07/25/2023 14:05:14 EDT by Julissa Crawford RN) Tobacco: Denies Tobacco Use (Last Updated: 07/25/2023 14:05:06 EDT by Julissa Crawford RN ) Substance Abuse: Marijuana (Last Updated: 07/25/2023 14:05:31 EDT by Julissa Crawford RN) Infection Screening Last Physical Overnight Location of the Patient : Personal Residence Travel outside [place] within past 30 days : No History of Recent Diarrhea : No Concern possible Infectious Disease : No Exposure AND/OR close contact with a person under investigation or laboratory-confirmed COVID-19 individual within 14 days of symptom onset AND/OR any of the following: : No Do you live/work in a high risk situation (congregated living, hemodialysis, infusion clinic, senior care, assisted living, jail, homeless fdc, etc.)? : No Julissa Crawford RN - 07/25/2023 14:04 EDT Normal [facility] ED Discharge Educationon ED Discharge Education Normal [facility] ED Emergency Severity Index Adult-Texton 07-25-2023 ED Emergency Severity Index Adult-Text PO - Adult Entered On: 07/25/2023 12:57 EDT Performed On: 07/25/2023 12:56 EDT by Leland Jiménez RN DCP GENERIC CODE Visit Reason : SI Tracking Triage Date/Time : 07/25/2023 12:56 EDT Tracking Reg Status : Requested Tracking Acuity : 2-Emergent Tracking Group : [id number] Tracking Leland Jiménez RN - 07/25/2023 12:56 EDT Normal [facility] ED Nrsing Adlt Triage Sep Sc rning - Texton 07-25-2023 ED Nrsing Adlt Triage Sep Scrning - Text ED Nursing Adult Triage Sepsis Screening Tool Entered On: 07/25/2023 13:15 EDT Performed On: 07/25/2023 13:15 EDT by Julissa Crawford RN Adult Sepsis Screening Sepsis Infection Screening ED : Julissa Lantigua RN - 07/25/2023 13:15 EDT Normal [facility] ED Patient Summaryon 023 ED Patient Summary [facility] Emergency Department Discharge Instructions [address] [place] [address] (Patient Copy) Name: SARAH RENTERIA : 1965 Allergies: sulfamethoxazole-trimethopr im Diagnosis: Visit Date: 07/25/2023 12:51:38 Current Date Time: 07/25/2023 16:49:57 Address: [address] [place] [address] [place] [address] Primary Care Provider: Name: [phone] -UnAvailable, Phone: Emergency Department Care Providers: Primary Physician: TANNER HERNADEZ MD Thank you for choosing [facility] for your emergency care. You are very important to us. Our goal is to demonstrate our high quality medical care, and provide you with a very good patient experience. You may receive a survey about our service. Please take the time to complete the survey and return it so we can continue to enhance our service. Thank you again for allowing the [facility] Emergency Department to care for your medical needs. If you have questions about your care or follow up information please contact us at [phone]. Follow-Up Instructions SARAH RENTERIA has been given these follow-up instructions: Patient Education Materials SARAH RENTERIA has been given the following patient education materials: BEFORE YOU LEAVE Set up your [facility] [employer] account! [employer] is a secure, online health management tool that connects you to portions of your hospital-based electronic medical record, allowing you to see test results, manage appointments, access discharge care instructions and much more. You can access [employer] from a computer, tablet or smartphone. Enrollment/registration is required. If you do not have a [employer] account, please provide us with an email address before you leave so that we may set up an account for you. New to [employer]! You may now securely connect some of the health management apps you use (e.g., fitness trackers, dietary trackers, etc.) to your health record in [facility] [employer]. This new feature provides expanded access to your health and wellness data, which will help you and your care team make informed decisions about your health care. If you are interested in using a health management diana not currently connected to [employer], contact a [employer] at [phone] or [email or web address]. We will determine if the diana meets the technical requirements to connect to [facility] [employer] and assure the security of your private health information. Medication Information SARAH RENTERIA has been given the following medication information: No Discharge Medications. Understanding your home medicine is important to keeping you healthy. If you are taking medications that are not on the preceding list, please call your doctor to see if you are to continue that medication. It is important that you do not skip or make up doses. If you are ordered an antibiotic, finish taking all the medicine, unless your doctor tells you otherwise. Call your doctor if you have questions or problems. Take the medicine list with you to all follow up appointments. If you or a loved one is struggling with a mental health or substance abuse issue, please call [facility] at [phone] or the National Suicide Prevention Lifeline at . MYRA Amador RENEE, have received the follow-up provider(s) list, medication information and patient education materials/instructions and have verbalized understanding. Patient Signature Date Time Provider Signature Date Time Normal [facility] ED Physician Reporton 2022 ED Physician Report SARAH RENTERIA DOB:1965 Registration Date:07/25/2023 Basic Information Time Seen: Time Seen: JULISSA CASILLAS DO / 07/25/2023 13:13 Arrival Mode: Walk-In [] History Source: Patient _ _ [] History limitation: None [] History of Present Illness 58-year-old female presents the ER with a chief complaint of SI. Patient states that she is on a new medication and was recently taken off of her Wellbutrin. She states that she has been having a hard time for the last month. Apparently the last few days she was more rebolledo and has been having thoughts of suicidal ideation. She has a plan for either overdosing on pills or shooting herself with a gun. She states that she does have a gun at home. She states that she has been hospitalized inpatient at [facility] in the past. She does have a psychiatrist. She also has a therapist, but states that her therapist will not see her because she keeps missing her appointments. Review of Systems Constitutional: no fever, no chills Skin: no rash, ENMT: no ear pain, no sore throat, no congestion, Respiratory: no shortness of breath, no cough Cardiovascular: no chest pain, no palpitations, no edema Gastrointestinal: no nausea, no vomiting, no diarrhea, Genitourinary: no dysuria, no hematuria Musculoskeletal: no back pain, no trauma Neurologic: no headache, no dizziness, no numbness, no weakness Psychiatric: Depression, SI Physical Exam Vitals & Measurements Initial: T: 36.6 ?C (Oral) HR: 74 (Peripheral) BP: 140/82 RR: 16 SpO2: 96% O2 Therapy: Room air WT: 95.8 kg (Dosing) Latest: HR: 65 (Peripheral) BP: 137/ 93 RR: 20 SpO2: 96% O2 Therapy: Room air General: alert, no acute distress. Skin: warm, dry.pink, intact Head: no trauma, normocephalic. Neck: trachea midline, no tenderness. Eye: normal conjunctiva, sclera clear. Cardiovascular: regular rate and rhythm, normal peripheral perfusion. Respiratory: lungs CTA, respirations non-labored. Chest Wall: no deformity.no tenderness Gastrointestinal: soft, non distended, non tender Extremities: no deformity, no trauma.no swelling Neurological: oriented x 4, LOC appropriate for age, speech normal. Psychiatric: cooperative, affect appropriate for age, Back: normal alignment Medical Decision Making 58-year-old female presented to the ER with a chief complaint of suicidal ideation with plan to either overdose or use a gun. Does own a gun at home. Vital signs stable on arrival. Physical examination unremarkable. Reviewed patient's previous records, no records in the [facility] system noted. Differential diagnoses considered include but are not limited to: SI, depression, anxiety Psychiatric screening labs obtained which were grossly unremarkable. EKG with normal QT/QTc, independently interpreted. Patient was pink slipped. She was evaluated by ED intake and assessment and was accepted to [facility]. Patient in agreement the plan, transported to [facility] in stable condition. Reexamination/Reevaluation Systolic Blood Pressure: 137 mmHg Diastolic Blood Pressure: 93 mmHg High Temperature Oral: 36.6 degC Respiratory Rate: 20 br/min Mean Arterial Pressure, Cuff: 104 mmHg SpO2: 96 % Oxygen Therapy: Room air Peripheral Pulse Rate: 65 bpm Weight Dosin.8 kg Discharge/Plan *Discharge Disposition Level of Care Order - Ordered -- 07/25/2023 15:56:00 EDT, [facility] Admit as Inpatient, MARICARMEN NARANJO, TANNER Assessment This Visit Diagnosis 1. 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 EKG ER, 07/25/2023 13:14:00 EDT, Other Reason, Cart, Heart Meds Unknown at this time, STAT, No EKG/[place] Requested Level of Care Order, 07/25/2023 15:56:00 EDT, [facility] Admit as Inpatient, MARICARMEN NARANJO, TANNER [facility] Task(Behavioral Health Precautions), Behavioral Health Precautions, 07/25/2023 13:14:00 EDT, 07/25/2023 13:14:00 EDT, 07/25/2023 13:14:00 EDT [facility] Task to Nursing, 07/25/2023 13:14:00 EDT, Constant Order, NPO Resuscitation Status, Resuscitation Status: Full Code, Discussed With: Patient, 07/25/2023 15:56:00 EDT THY GP, STAT, 07/25/2023 13:14:00 EDT Transfer Care of Patient to Attending, 07/25/2023 15:56:00 EDT, Upon discharge from the ED, all continued medications and orders become the responsibility of the admitting/attending physician. U DOA WITH FENTANYL, STAT, 07/25/2023 13:14:00 EDT, Specimen type: Urine UA, STAT, 07/25/2023 13:14:00 EDT Vital Signs, 07/25/2023 13:14:00 EDT, Constant Order, Per Unit Standard of Care, include Pulse Ox with all VS Medication Reconciliation Unchanged clonazePAM (KlonoPIN 1 mg oral tablet)1 Tabs (more content not included)... Normal [facility] ED Triage Adult-Texton 07-25 ED Triage Adult-Text ED Triage Entered On: 07/25/2023 13:14 EDT Performed On: 07/25/2023 13:13 EDT by Julissa Crawford RN Triage (As Of: 07/25/2023 13:14:19 EDT) Diagnoses(Active) Suicidal ideation Date: 07/25/2023 ; Diagnosis Type: Reason For Visit ; Confirmation: Confirmed ; Clinical Dx: Suicidal ideation ; Classification: Medical ; Clinical Service: Non-Specified ; Code: PNED ; Probability: 0 ; Diagnosis Code: [id number] (As Of: 07/25/2023 13:14:19 EDT) Vitals/Ht/Wt Temperature Oral : 36.6 degC Pulse Rate : 74 bpm Respiratory Rate : 16 br/min Systolic Blood Pressure : 140 mmHg Diastolic Blood Pressure : 82 mmHg SpO2 : 96 % Oxygen Therapy : Room air Pain Symptoms : No Numeric Pain Scale : 0 = No Pain/ Other Indications VAS Pain Scale Age : VAS (8 yrs & older) Height/Length Dosing : 165.1 cm(Converted to: 5.42 ft, 65.00 in) Weight Measured Type of Scale : Bed Scale (digital) Weight Dosing : 95.8 kg(Converted to: 3,379.246 oz, 211.203 lb) Body Mass Index Dosing : 35 Julissa Crawford RN - 07/25/2023 13:13 EDT Normal [facility] HEMOon 07-25-2023 DIFF? No Normal [facility] Comment on above: Performed By: #### 9 [id number], [id number], [id number], [id number], [id number] #### [facility] [address] [place] [phone] Sales Agent: Zafar Larios MD Erythrocyte distribution width (RBC) [Ratio] 13.3 % Normal 11.5-14.5 [facility] Comment on above: Performed By: #### 9 [id number], 887506, 118613, 260807, 935230 #### [facility] [address] [place] [address] Sales Agent: Zafar Larios MD Hematocrit (Bld) [Volume fraction] 40.7 % Normal 36.0-46.0 [facility] Comment on above: Performed By: #### 9 [id number], [id number], 276035, 355008, 766206 #### [facility] [address] [place] [address] 19003 Sales Agent: Zafar Larios MD Hemoglobin (Bld) [Mass/Vol] 14.0 g/dL Normal 12.0-16.0 [facility] Comment on above: Performed By: #### 9 [id number], 845120, 812793, 167044, 727989 #### [facility] [address] [place] [address] 319[address] Sales Agent: Zafar Larios MD Instr WBC 7.9 Normal [facility] Comment on above: Performed By: #### 9 [id number], 445604, 007338, 198001, [id number] #### [facility] [address] [place] [phone] Sales Agent: Zafar Larios MD MCH (RBC) [Entitic mass] 31.8 pg Normal 27.0-34.0 [facility] Comment on above: Performed By: #### 9 [id number], 234466, 642335, 121757, 441424 #### [facility] [address] [place] [address] 07707 Sales Agent: Zafar Larios MD MCHC (RBC) [Mass/Vol] 34.3 g/dL Normal 32.0-37.0 [facility] Comment on above: Performed By: #### 9 [id number], 241244, 578589, 364197, 131222 #### [facility] [address] [place] [address] 01202 Sales Agent: Zafar Larios MD MCV (RBC) [Entitic vol] 92.6 fL Normal 80.0-100.0 [facility] Comment on above: Performed By: #### 9 [id number], 095796, 058834, 311940, 489466 #### [facility] [address] [place] [address] 04071 Sales Agent: Zafar Larios MD MDW 18.98 Normal 13.98-20.00 [facility] Comment on above: Result Comment: MDW Interpretation: - For adults age 18-89 in ED, MDW >20.0 may be associated with a higher risk of Sepsis during the first 12 hours of hospital admission. - The predictive value of MDW for identifying Sepsis in patients with hematological abnormalities has not been established. - Interpret with caution when immature granulocytes, variant lymphs, or blast cells are noted on the differential. - Confirm patient age is within intended use population (18-89 years) for MDW. - For ED adults suspected of Sepsis, MDW less than or equal to 20.0 does not rule out Sepsis or the risk of Sepsis. Performed By: #### 9 [id number], 195216, 043341, 807951, 712695 #### [facility] [address] [place] [address] 69[address] Sales Agent: Zafar Larios MD Nucleated RBC 0 /100WBC Normal [facility] Comment on above: Performed By: #### 9 [id number], 495322, 210537, 293100, 213043 #### [facility] [address] [place] [address] [id number] Sales Agent: Zafar Larios MD Platelet 237 x10 Normal 150-450 [facility] Comment on above: Performed By: #### 9 [id number], 523551, 313352, 940971, 073122 #### [facility] [address] [place] [address] 288[address] Sales Agent: Zafar Larios MD Platelet mean volume (Bld) [Entitic vol] 9.9 fL Normal 7.4-10.4 [facility] Comment on above: Performed By: #### 9 857939, 633653, 110856, 916642, 770195 #### [facility] [address] [place] [address] 8[address] Sales Agent: Zafar Larios MD RBC 4.39 x10 Normal 4.20-5.40 [facility] Comment on above: Result Comment: Note : RBC morphology is normal unless otherwise stated. Evaluation performed only if differential is requested. Performed By: #### 9 200036, 893031, 820589, 265484, 736366 #### [facility] [address] [place], [place] [phone] Sales Agent: Zafar Larios MD WBC 7.9 x10 Normal 4.5-11.0 [facility] Comment on above: Performed By: #### 9 [id number], 531369, 232044, 108974, 447320 #### [facility] [address] [place] [address] Sales Agent: Zafar Larios MD MH/CD Triage-Texton 07-25-20 MH/CD Triage-Text MH/CD Triage Entered On: 07/25/2023 14:05 EDT Performed On: 07/25/2023 14:05 EDT by Perri Chirinos Demographics Referral Source : Emergency department [facility] Mode of Arrival : Car / Walk-In Admission Status : 72 hour hold Information Given By : Self Referral Facility Name : [facility] Phone Number of Facility : [phone] Referring : Perri Granados - 07/25/2023 15:21 EDT Presenting Problem/Symptoms Presenting Problem : Depressed mood, Suicidal Suicidal Ideation : Plan Homicide Ideation : None Assault Ideation : None Presenting Problem/Indentified Stressors : SI Events Leading to Hospitalization or Evaluation : SI Reason for Admission or Evaluation : SI Attempts to Deal With Problem : currently in ED Previous Involvement in Legal System : denies History of Suicide Attempts : Yes Suicide Attempt Method : in her 20s Current Involvement in Legal System : denies Perri Chirinos - 07/25/2023 15:21 EDT Step 1: Identify Risk Factors CSSRS Past Month Wish to be : Past month, yes 1. Have you wished you were or wished you could go to sleep and not wake up? : Lifetime, yes CSSRS Past Month Suicidal Thoughts : Past month, yes 2. Have you actually had any thoughts of killing yourself? : Lifetime, yes CSSRS Past Month Idea w-Method No Intent : Past month, yes 3. Have you been thinking about how you might do this? : Lifetime, yes CSSRS Past Month Idea w-Intent No Plan : Past month, no 4. Have you had these thoughts and had some intention of acting on them? : Lifetime, yes CSSRS Past Month Suicide Intent w-Plan : Past month, no 5. Have you started to work out or worked out the details of how to kill yourself? Do you intend to carry out this plan? : Lifetime, yes CSSRS Past 3 Mo Prep Acts or Behavior : Past 3 months, no CSSRS Preparatory Acts or Behavior : Lifetime, yes Activating Events : Not applicable Treatment History : Previous psychiatric diagnoses and treatments Describe: : MDD, anxiety, BPD Clinical Status : Refuses or feels unable to agree to safety plan Access to lethal methods : No [facility] Perri 07/25/2023 15:21 EDT Step 2: Identify Protective Factors CSSRS Internal Protective Factors : Identifies reasons for living CSSRS External Protective Factors : Responsibility to family or others, living with family, Supportive social network or family [facility] Perri 07/25/2023 15:21 EDT Step 3: Specific questioning about Thoughts, Plans, & Suicidal Intent Past Month: Most Severe Ideation : 3 = Active suicide ideation w-method (not plan) w-out intent Lifetime: Most Severe Ideation : 5 = Active suicidal ideation with specific plan and intent CSSRS Past Mo Freq of Suicidal Thoughts : Two to five times a week 1. How many times have you had these thoughts? : Daily or almost daily CSSRS Past Mo Duration Suicidal Thought : One to four hours, a lot of the time 2. When you have the thoughts how long do they last? : Four to eight hours, most of the day CSSRS Past Mo Control Suicidal Thoughts : Can control thoughts with some difficulty 3. Could/can you stop thinking about killing yourself or wanting to if you want to? : Can control thoughts with a lot of difficulty CSSRS Past Month Deter Suicidal Thoughts : Does not apply 4. Are there things, anyone or anything (e.g., family, anabaptist, pain of ) that stopped you from wanting to or acting on thoughts of committing suicide? : Deterrents most likely did not stop you CSSRS Past Month Reasons for Ideation : Does not apply 5. What sort of reasons did you have for thinking about wanting to or killing yourself? Was it to end the pain or stop the way you were feeling (in other words you couldn't go on living with this pain or how you were feeling) or was it to get : Mostly to end pain, can't go on living with pain or feelings Past Month Intensity of Ideation Scale (ref) : 9 Lifetime Intensity of Ideation Scale (ref) : 20 [facility] Perri 07/25/2023 15:21 EDT Step 4: Guidelines to Determine Level of Risk Assessed Risk Level : Moderate [facility] 07/25/2023 15:21 EDT General Information Languages : Danish Domestic Concerns : None [facility] 07/25/2023 15:21 EDT Medical Clearance Screening Level of Consciousness : Alert Orientation : Oriented x 3 Affect/Behavior : Calm, Cooperative Hallucinations Present : None [facility] 07/25/2023 15:21 EDT Orientation Memory Concentration Test Response to Current Year : Correct Response to Current Month : Correct [facility] 07/25/2023 15:21 EDT Allergy MH/CD Medication Additional Details : See medication list [facility] 07/25/2023 15:21 EDT (As Of: 07/25/2023 15:24:53 EDT) Allergies (Active) sulfamethoxazole-trimethopr im Estimated Onset Date: Unspecified ; Created By: Julissa Crawford RN; Reaction Status: Active ; Category: Drug ; Substance: sulfamethoxazole-trimethopr (more content not included)... Normal [facility] Pharmacy Clinical Interventi ons-Texton 07-25-2023 Pharmacy Clinical Interventions-Text Pharmacy Clinical Interventions Entered On: 07/25/2023 14:23 EDT Performed On: 07/25/2023 14:23 EDT by Shelly Hunter CPhT Interventions Intervention Type Pharmacy : Medication history Pharmacy Order Initiated By : Bacteriologist Food Clinical Importance Pharmacy : Potentially minor Prescriber Response Pharmacy : Corrected prior to contact Patient Clinical Outcome Pharmacy : Avoided potential risk Pharmacist Intervention Time : 45 Pharmacy Additional Information : UPDATED MED LSIT WITH PT [facility] RX PT ONLY TOOK KLONPIN TODAY NO LONGER ON WELLBUTRIN Shelly Hunter CPhT - 07/25/2023 14:23 EDT Normal [facility] THY GPon 07-25-2023 TSH Qn 1.67 m[IU]/L Normal 0.55-4.78 [facility] Comment on above: Result Comment: - Do not use samples that contain fluorescein. Fluorescein levels > 0.24 ?g/mL may decrease results in this assay - Patients undergoing retinal fluorescein angiography can retain amounts of fluorescein in the body for up to 48?72 hours post-treatment. Such samples can produce falsely depressed values when tested with this assay, and should not be tested Performed By: #### 9 [id number], 624786, 268561, 551292, 547158 ####[facility] [address] [place] [address] Medical Director: Zafar Larios MD Free T4 [Mass/Vol] 1.20 ng/dL Normal 0.89-1.76 [facility] Comment on above: Result Comment: - Th e anticonvulsant drug phenytoin may interfere with total and free T4 levels due to competition for TBG binding sites - Free T4 values may be decreased in patients with non-thyroidal conditions and in patients taking carbamazepine Performed By: #### 9 [id number], 818707, 087279, 957767, 827789 ####[facility] [address] [place], [place] [id number] Medical Director: Zafar Larios MD U DOA WITH FENTANYLon 2022 Amphetamines, U Negative Normal [facility] Comment on above: Result Comment: Urin e for Drugs of Abuse tests (U Amphetamines, U Barbiturates, U PCP, U Benzodiazepines, U Cocaine, U THC, U Opiates & U Ecstasy)provide preliminary test results only. A more specific alternate method must be used in order to obtain a confirmed analytical result. Gas chromatography/mass spectrometry is the preferred confirmatory method. Clinical consideration and professional judgment should be applied to any drug of abuse test result, particularly when preliminary positive results are used. Results should not be used for non-medical purposes. Urine for Drugs of Abuse [place] Levels: Barbiturate 200 ng/ml PCP 25 ng/ml Cocaine 300 ng/ml Opiates 2000 ng/ml Amphetamines 1000 ng/ml Benzodiazepines 200 ng/ml THC 50 ng/ml EXTC 500 ng/ml Performed By: #### C [id number] ####[facility] [address] [place] [address] Medical Director: Zafar Larios MD Barbituates, [facility] Comment on above: Performed By: #### C [id number] ####[facility] [address] [place] [address] Medical Director: Zafar Larios MD Benzodiazepines, [facility] Comment on above: Result Comment: - A positive result from the assay indicates the presence of benzodiazepines but does not indicate or measure intoxication - Boric acid is not recommended as a preservative for urine. - The glucuronide metabolite of ?-hydroxyalprazolam cross-reacts with this assay - Other glucuronide metabolites, such as lorazepam, oxazepam, and temazepam cross-react to a limited extent Performed By: #### C [id number] ####[facility] [address] [place] [address] [id number]) [phone] Director: Zafar Larios MD Cocaine, [facility] Comment on above: Performed By: #### C [id number] ####[facility] [address] [place] [address] Medical Director: Zafar Larios MD Ecstasy, [facility] Comment on above: Performed By: #### C [id number] ####[facility] [address] [place] [address] Medical Director: Zafar Larios MD Fentanyl, [facility] Comment on above: Result Comment: Urin markus for Fentanyl provides preliminary test results only. A more specific alternate method must be used in order to obtain a confirmed analytical result. Gas chromatography/mass spectrometry is the preferred confirmatory method. Clinical consideration and professional judgment should be applied to any drug of abuse test result, particularly when preliminary positive results are used. Results should not be used for non-medical purposes. Urine Fentanyl [place] Level: 1 ng/ml Performed By: #### C [id number] ####[facility] [address] [place] [address] Medical Director: Zafar Larios MD Opiates, U Negative Normal [facility] Comment on above: Performed By: #### C [id number] ####[facility] [address] [place] [address] Medical Director: Zfaar Larios MD PCP, U Negative Normal [facility] Comment on above: Performed By: #### C [id number] ####[facility] [address] [place] [address] Medical Director: Zafar Larios MD THC, U Positive Normal [facility] Comment on above: Performed By: #### C [id number] ####[facility] [address] [place] [address] Medical Director: Zafar Larios MD UAon 07-25-2023 Appearance, U Clear Normal [facility] Comment on above: Performed By: #### 1 [id number] #### [facility] [address] [place] [address] 16280 Sales Agent: Zafar Larios MD Bilirubin, U Negative Normal Negative [facility] Comment on above: Performed By: #### 1 [id number] #### [facility] [address] [place] [address] Sales Agent: Zafar Larios MD Blood, U Negative Normal Negative [facility] Comment on above: Performed By: #### 1 [id number] #### [facility] [address] [place] [address] 98911 Sales Agent: Zafar Larios MD Color, U Yellow Normal [facility] Comment on above: Performed By: #### 1 [id number] #### [facility] [address] [place] [address]158 Sales Agent: Zafar Larios MD Glucose Qual, U Negative Normal Negative [facility] Comment on above: Performed By: #### 1 [id number] #### [facility] [address] [place] [address] 18082 Sales Agent: Zafar Larios MD Ketones, U Negative Normal Negative [facility] Comment on above: Performed By: #### 1 [id number] #### [facility] [address] [place], [place] [phone] Sales Agent: Zafar Larios MD Leukocyte Esterase, U Trace Abnormal Negative [facility] Comment on above: Performed By: #### 1 [id number] #### [facility] [address] [place], [place] [phone] Sales Agent: Zafar Larios MD Nitrite, U Negative Normal Negative [facility] Comment on above: Performed By: #### 1 [id number] #### [facility] [address] [place], [place] [phone] Sales Agent: Zafar Larios MD pH, U 6.0 Normal 4.5-8.0 [facility] Comment on above: Performed By: #### 1 [id number] #### [facility] [address] [place], [place] [phone] Sales Agent: Zafar Larios MD Protein, U Negative Normal Negative [facility] Comment on above: Performed By: #### 1 [id number] #### [facility] [address] [place], [place] [phone] Sales Agent: Zafar Larios MD Specific [place], U 1.010 Normal 1.001-1.035 [facility] Comment on above: Performed By: #### 1 [id number] #### [facility] [address] [place] [address] 24301 Sales Agent: Zafar Larios MD Squamous Epithelial Cells, U 1 #/HPF Normal [facility] Comment on above: Performed By: #### 1 [id number] #### [facility] [address] [place] [address] Sales Agent: Zafar Larios MD U MICRO Indicated Normal [facility] Comment on above: Performed By: #### 1 [id number] #### [facility] [address] [place] [address] Sales Agent: Zafar Larios MD Urobilinogen Qual, U 0.2 EU/dl Normal 0.1-1.0 mg/dl [facility] Comment on above: Result Comment: EU/d l and mg/dl are equivalent units. Performed By: #### 1 [id number] #### [facility] [address] [place] [address] [phone] Sales Agent: Zafar Larios MD WBC/HPF, U 1 #/HPF Normal 0-5 [facility] Comment on above: Performed By: #### 1 [id number] #### [facility] [address] [place], [place] [phone] Sales Agent: Zafar Larios MD LABORATORYOrdered By: SYSTEM SYSTEM on 03-18-2023 Calcium [Mass/Vol] 9.6 mg/dL Invalid Interpretation Code 8.4 - 10.2 mg/dL AO ADM SS Chloride [Moles/Vol] 104 mmol/L Invalid Interpretation Code 98 - 107 mmol/L AO ADM SS CO2 [Moles/Vol] 28 mmol/L Invalid Interpretation Code 22 - 29 mmol/L AO ADM SS Creatinine [Mass/Vol] 0.85 mg/dL Invalid Interpretation Code 0.55 - 1.02 mg/dL AO ADM SS Electrolyte Balance 10.0 mEq/L Invalid Interpretation Code 4.0 - 15.0 mEq/L AO ADM SS GFR/1.73 sq M.predicted among blacks MDRD (S/P/Bld) [Vol rate/Area] 83 ml/min/1.73sqm Invalid Interpretation Code AO Chemistry S GFR/1.73 sq M.predicted among non-blacks MDRD (S/P/Bld) [Vol rate/Area] 69 ml/min/1.73sqm Invalid Interpretation Code AO Chemistry S Glucose [Mass/Vol] 97 mg/dL Invalid Interpretation Code 70 - 105 mg/dL AO ADM SS Potassium [Moles/Vol] 4.8 mmol/L Invalid Interpretation Code 3.5 - 5.1 mmol/L AO ADM SS Sodium [Moles/Vol] 142 mmol/L Invalid Interpretation Code 136 - 145 mmol/L AO ADM SS Urea nitrogen [Mass/Vol] 15 mg/dL Invalid Interpretation Code 7 - 18 mg/dL AO ADM SS Urea nitrogen/Creatinine [Mass ratio] 18 ratio Invalid Interpretation Code 7 - 27 ratio AO ADM SS LABORATORYOrdered By: Tung Rojo on 01-13-2023 Albumin DL <= 20 mg/L (U) [Mass/Vol] 533 mcg/dL Invalid Interpretation Code AO ADM SS Albumin/Creatinine DL <= 20 mg/L (U) [Mass ratio] 10 mcg/mg Invalid Interpretation Code 0 - 30 mcg/mg AO ADM SS Creatinine (U) [Mass/Vol] 51.8 mg/dL Invalid Interpretation Code 28.0 - 117.0 mg/dL AO ADM SS LABORATORYOrdered By: Tung Lopez on 12-08-2021 Appearance (U) Slightly Cloudy *ABN* (12/08/21 9:32 AM) Invalid Interpretation Code Clear AO Auto Urine SS Bacteria LM.HPF (Urine sed) [#/Area] Trace /HPF Invalid Interpretation Code AO Auto Urine SS Bilirubin Ql (U) Negative (12/08/21 9:32 AM) Invalid Interpretation Code Negative AO Auto Urine SS Color (U) Yellow (12/08/21 9:32 AM) Invalid Interpretation Code AO Auto Urine SS Glucose Test strip (U) [Mass/Vol] Negative Invalid Interpretation Code Negativemg/d L AO Auto Urine SS Hemoglobin Auto test strip (U) [Mass/Vol] Negative (12/08/21 9:32 AM) Invalid Interpretation Code Negative AO Auto Urine SS Ketones Ql (U) Negative Invalid Interpretation Code Negativemg/d L AO Auto Urine SS UA Leuk Est Trace *ABN* (12/08/21 9:32 AM) Invalid Interpretation Code Negative AO Auto Urine SS UA Nitrite Negative (12/08/21 9:32 AM) Invalid Interpretation Code Negative AO Auto Urine SS UA pH 5.5 (12/08/21 9:32 AM) Invalid Interpretation Code 5.0 - 8.0 AO Auto Urine SS UA Protein Negative Invalid Interpretation Code Negativemg/d L AO Auto Urine SS UA RBC 0-5 /HPF Invalid Interpretation Code None Seen/HPF AO Auto Urine SS UA Spec Grav >=1.030 *ABN* (12/08/21 9:32 AM) Invalid Interpretation Code 1.015-1.025 AO Auto Urine SS UA Specimen Type Clean Catch (12/08/21 9:32 AM) Invalid Interpretation Code AO Auto Urine SS UA Squam Epithelial 0-5 /HPF Invalid Interpretation Code None Seen/HPF AO Auto Urine SS UA Urobilinogen 0.2 E.U./dL Invalid Interpretation Code 0.2-1.0E.U./ dL AO Auto Urine SS WBC LM.HPF (Urine sed) [#/Area] 5-10 /HPF Invalid Interpretation Code None Seen/HPF AO Auto Urine SS LABORATORYOrdered By: Aramis Kapadia on 12-08-2021 Creatinine (U) [Mass/Vol] 179.2 mg/dL Invalid Interpretation Code 28.0 - 117.0 mg/dL AO ADM SS Protein (U) [Mass/Vol] 16 mg/dL Invalid Interpretation Code 0 - 11 mg/dL AO ADM SS U Ratio Prot/Creat 0.1 ratio Invalid Interpretation Code AO Chemistry S No Panel Informationon 12-08 Culture Urine No growth at 48 hours. [facility] Work Phone: LABORATORYOrdered By: Tung Lopez on 08-26-2021 ADMITTED TO INTENSIVE CARE UNIT FOR CONDITION OF INTEREST:FIND:PT:^P ATIENT:ORD: No (08/26/21 12:00 PM) Invalid Interpretation Code AO Auto Urine SS EMPLOYED IN A HEALTHCARE SETTING:FIND:PT:^PA TIENT:ORD: No (08/26/21 12:00 PM) Invalid Interpretation Code AO Auto Urine SS FIRST TEST FOR CONDITION OF INTEREST:FIND:PT:^P ATIENT:ORD: No (08/26/21 12:00 PM) Invalid Interpretation Code AO Auto Urine SS HAS SYMPTOMS RELATED TO CONDITION OF INTEREST:FIND:PT:^P ATIENT:ORD: Yes (08/26/21 12:00 PM) Invalid Interpretation Code AO Auto Urine SS Illness or injury onset date and time [id number] Invalid Interpretation Code AO Auto Urine SS Patient was hospitalized because of this condition No (08/26/21 12:00 PM) Invalid Interpretation Code AO Auto Urine SS status Not (08/26/21 12:00 PM) Invalid Interpretation Code AO Auto Urine SS RESIDES IN A CONGREGATE CARE SETTING:FIND:PT:^RANDALL TIENT:ORD: No (08/26/21 12:00 PM) Invalid Interpretation Code AO Auto Urine SS SARS-CoV-2 (COVID-19) RNA MARYBETH+probe Ql (Resp) Negative (08/26/21 12:00 PM) Invalid Interpretation Code Negative AO Auto Urine SS SARS-CoV-2 (COVID-19) RNA MARYBETH+probe Ql (Unsp spec) Negative results do not preclude SARS-CoV-2 infection and should not be used as the sole basis for patient management decisions. Negative results must be combined with clinical observations, patient history, and epidemiological information.There is a risk of false negative values resulting from improperly collected, transported, or handled specimens.There is a risk of false negative values due to the presence of sequence variants in the pathogen targets of the assay, procedural errors, amplification inhibitors in specimens, or inadequate numbers of organisms for amplification.LIS SARS-CoV-2 Assay is a Real-Time reverse-transcriptase polymerase chain reaction (RT-PCR) based qualitative in vitro diagnostic test intended for the qualitative detection of nucleic acid from the SARS-CoV-2 in nasopharyngeal swab specimens collected from individuals suspected of COVID-19 by their healthcare provider. Testing is limited to laboratories certified under the Clinical Laboratory Improvement Amendments of 1988 (CLIA), 42 U.S.C. 263a, to perform moderate and high complexity tests. Invalid Interpretation Code AO Auto Urine SS Hgb A1con 08-05-2020 HbA1c (Bld) [Mass fraction] 97 mg/dL Normal [facility] Comment on above: Performed By: #### U RIN2 #### [address] [address] HbA1c (Bld) [Mass fraction] 5.0 % Normal 4.0-5.6 [facility] Comment on above: Result Comment: [place] Diabetes Association guidelines indicate that the patients with HgA1c in the range 5.7 ? 6.4% are at increased risk for development of diabetes, and intervention by lifestyle modification may be beneficial. HgA1c greater or equal to 6.5% is considered diagnostic of diabetes. Performed By: #### U RIN2 #### [address] [place], [place] [address] Lipid Profile, [place] 08-05 Cholesterol [Mass/Vol] 237 mg/dL High 0-199 [facility] Comment on above: Result Comment: Tota l Cholesterol < 200 mg/dL, Desirable Total Cholesterol 200 to 239 mg/dL, Borderline high Total Cholesterol > 239 mg/dL, High Performed By: #### U RIN2 #### [address] [address] Cholesterol in HDL [Mass/Vol] 56 mg/dL Normal [facility] Comment on above: Result Comment: Refe rence Range: HDL Cholesterol 40- 59 mg/dL, Acceptable HDL Cholesterol >59 mg/dL, High; Negative risk factor for coronary heart disease HDL Cholesterol <40 mg/dL, Low; Positive risk factor for coronary heart disease Performed By: #### U RIN2 #### [address] [address] Cholesterol in LDL [Mass/Vol] 159 mg/dL High 0-99 [facility] Comment on above: Result Comment: LDL Cholesterol < 100 mg/dL, Optimal LDL Cholesterol 100 to 129 mg/dL, Near optimal/above optimal LDL Cholesterol 130 to 159 mg/dL, Borderline high LDL Cholesterol 160 to 189 mg/dL, High LDL Cholesterol > 189 mg/dL, Very high Secondary prevention optimal LDL Cholesterol levels are recommended to be < 70 mg/dL Performed By: #### U RIN2 #### [address] [address] Cholesterol in LDL/Cholesterol in HDL [Mass ratio] 2.84 High 0.00-2.53 [facility] Comment on above: Performed By: #### U RIN2 #### [address] [address] Cholesterol.total/C holesterol in HDL [Mass ratio] 4.23 {ratio} Normal 0.00-5.09 [facility] Comment on above: Performed By: #### U RIN2 #### [address] [address] Non-HDL Cholesterol 181 mg/dL High 0-129 [facility] Comment on above: Result Comment: Non HDL Cholesterol < 130 mg/dL, Optimal Non HDL Cholesterol 130 to 159 mg/dL, Near optimal/above optimal Non HDL Cholesterol 160 to 189 mg/dL, Borderline high Non HDL Cholesterol 190 to 219 mg/dL, High Non HDL Cholesterol > 219 mg/dL, Very high Secondary prevention optimal non HDL Cholesterol levels are recommended to be < 100 mg/dL Performed By: #### U RIN2 #### [place] [address] Triglyceride Blood 110 mg/dL Normal 0-149 [facility] Comment on above: Result Comment: Trig lycerides < 150 mg/dL, Normal Triglycerides 150 to 199 mg/dL, Borderline high Triglycerides 200 to 499 mg/dL, High Triglycerides > 499 mg/dL, Very high Performed By: #### U RIN2 #### [place] [address] VLDL Cholesterol 22 mg/dL Normal 0-29 [facility] Comment on above: Performed By: #### U RIN2 #### [place] [address] Acetaminophenon 08-04-2020 Acetaminophen [Mass/Vol] <5 Low 10-30 [facility] Comment on above: Result Comment: Toxi c >150 ug/mL 4 hours post ingestion. The Bianca Waggoner nomogram can be used to estimate the probability of hepatotoxicity via the relationship of plasma acetaminophen concentration to the post ingestion interval. (Aicha. Pediatrics. 1975. 55:871 to 876 and Bianca et al. Arch [employer]or Med. 1981. 141:380 to 385). Reference ranges and high/low indicator flags are provided as general guidelines only. The treating physician must determine appropriate target levels/dosing based on the specific clinical situation. Performed By: #### A CTM2 #### [place] [address] Alcohol, Serumon 08-04-2020 Alcohol, Serum <11.0 Normal < 11 [facility] Comment on above: Performed By: #### A LCO3 #### [place] [address] Comprehensive Metabolic Pane tiki 08-04-2020 Albumin [Mass/Vol] 4.4 g/dL Normal 3.9-4.9 [facility] Comment on above: Performed By: #### C MP #### [facility] [address] [place] [address] ALP [Catalytic activity/Vol] 70 U/L Normal 34-123 [facility] Comment on above: Performed By: #### C MP #### [facility] [address] [place] [address] ALT [Catalytic activity/Vol] 17 U/L Normal 7-38 [facility] Comment on above: Performed By: #### C MP #### [facility] [address] [place] [address] Anion gap [Moles/Vol] 10 mmol/L Normal 9-18 [facility] Comment on above: Performed By: #### C MP #### [facility] [address] [place] [address] AST [Catalytic activity/Vol] 19 U/L Normal 13-35 [facility] Comment on above: Performed By: #### C MP #### [facility] [address] [place] [address] Bilirubin [Mass/Vol] 0.4 mg/dL Normal 0.2-1.3 [facility] Comment on above: Performed By: #### C MP #### [facility] [address] [place] [address] Calcium [Mass/Vol] 9.5 mg/dL Normal 8.5-10.2 [facility] Comment on above: Performed By: #### C MP #### [facility] [address] [place] [address] Chloride [Moles/Vol] 104 mmol/L Normal 97-105 [facility] Comment on above: Performed By: #### C MP #### [facility] [address] [place] [address] CO2 Blood 25 mmol/L Normal 22-30 [facility] Comment on above: Performed By: #### C MP #### [facility] [address] [place] [address] Creatinine [Mass/Vol] 0.57 mg/dL Low 0.58-0.96 [facility] Comment on above: Performed By: #### C MP #### [facility] [address] [place], [place] [address] Glucose [Mass/Vol] 85 mg/dL Normal 74-99 [facility] Comment on above: Result Comment: The [place] Diabetes Association (ADA) provides guidance for cutoff values for fasting glucose and random glucose. The ADA defines fasting as no caloric intake for at least 8 hours.Fasting plasma glucose results between 100 to 125 mg/dL indicate increased risk for diabetes (prediabetes). Fasting plasma glucose results greater than or equal to 126 mg/dL meet the criteria for diagnosis of diabetes. In the absence of unequivocal hyperglycemia, results should be confirmed by repeat testing. In a patient with classic symptoms of hyperglycemia or hyperglycemic crisis, random plasma glucose results greater than or equal to 200 mg/dL meet the criteria for diagnosis of diabetes. Reference: Standards of Medical Care in Diabetes 2016; [place] Diabetes Association. Diabetes Care. 2016;39(Suppl 1). Performed By: #### C MP #### [address] [address] Potassium [Moles/Vol] 3.8 mmol/L Normal 3.7-5.1 [facility] Comment on above: Performed By: #### C MP #### [address] [address] Protein [Mass/Vol] 6.8 g/dL Normal 6.3-8.0 [facility] Comment on above: Performed By: #### C MP #### [address] [address] Sodium [Moles/Vol] 139 mmol/L Normal 136-144 [facility] Comment on above: Performed By: #### C MP #### [facility] [address] [place], [place] [address] Urea nitrogen [Mass/Vol] 12 mg/dL Normal 7-21 [facility] Comment on above: Performed By: #### C MP #### [facility] [address] [place], [place] [address] Hemogram/Diffon 08-04-2020 Abs Immature Grans 0.05 thou/cmm Normal 0.00-0.05 [facility] Comment on above: Performed By: #### C BCD1 #### [facility] [address] [place] [address] Abs Neut (ANC) 6.12 thou/cmm Normal 1.56-6.13 [facility] Comment on above: Performed By: #### C BCD1 #### [facility] [address] [place] [address] Abs. Baso 0.06 thou/cmm Normal 0.01-0.08 [facility] Comment on above: Performed By: #### C BCD1 #### [facility] [address] [place] [address] Abs. Dixie 0.60 thou/cmm Normal 0.27-0.70 [facility] Comment on above: Performed By: #### C BCD1 #### [facility] [address] [place] [address] Basophils/100 WBC (Bld) 0.6 % Normal [facility] Comment on above: Performed By: #### C BCD1 #### [facility] [address] [place] [address] Eosinophils (Bld) [#/Vol] 0.20 thou/cmm Normal 0.00-0.31 [facility] Comment on above: Performed By: #### C BCD1 #### [facility] [address] [place] [address] Eosinophils/100 WBC (Bld) 2.0 % Normal [facility] Comment on above: Performed By: #### C BCD1 #### [facility] [address] [place] [address] Erythrocyte distribution width (RBC) [Ratio] 12.4 % Normal 11.7-14.4 [facility] Comment on above: Performed By: #### C BCD1 #### [facility] [address] [place] [address] Hematocrit (Bld) [Volume fraction] 43.4 % Normal 34.1-44.9 [facility] Comment on above: Performed By: #### C BCD1 #### [facility] [address] [place] [address] Hemoglobin (Bld) [Mass/Vol] 14.5 g/dL Normal 11.2-15.7 [facility] Comment on above: Performed By: #### C BCD1 #### [facility] [address] [place] [address] Immature Grans 0.50 % Normal [facility] Comment on above: Performed By: #### C BCD1 #### [facility] [address] [place] [address] Lymphocytes (Bld) [#/Vol] 3.03 thou/cmm Normal 1.18-3.74 [facility] Comment on above: Performed By: #### C BCD1 #### [facility] [address] [place] [address] Lymphocytes/100 WBC (Bld) 30.1 % Normal [facility] Comment on above: Performed By: #### C BCD1 #### [place] [address] MCH (RBC) [Entitic mass] 31.7 pg Normal 25.6-32.2 [facility] Comment on above: Performed By: #### C BCD1 #### [facility] [address] [place] [address] MCHC (RBC) [Mass/Vol] 33.4 % Normal 31.6-34.8 [facility] Comment on above: Performed By: #### C BCD1 #### [place] [address] MCV (RBC) [Entitic vol] 94.8 fL Normal 79.4-94.8 [facility] Comment on above: Performed By: #### C BCD1 #### [facility] [address] [place] [address] Monocytes/100 WBC (Bld) 6.0 % Normal [facility] Comment on above: Performed By: #### C BCD1 #### [facility] [address] [place] [address] Platelet mean volume (Bld) [Entitic vol] 12.5 fL High 9.4-12.3 [facility] Comment on above: Performed By: #### C BCD1 #### [address] [place], [place] [address] Platelets (Bld) [#/Vol] 252 thou/cmm Normal 182-369 [facility] Comment on above: Performed By: #### C BCD1 #### [facility] [address] [place] [id number] RBC (Bld) [#/Vol] 4.58 mil/cmm Normal 3.93-5.22 [facility] Comment on above: Performed By: #### C BCD1 #### [facility] [address] [place] [address] RDW SD 42.5 fl Normal 36.4-46.3 [facility] Comment on above: Performed By: #### C BCD1 #### [facility] [address] [place] [address] Seg Neutrophil 60.8 % Normal [facility] Comment on above: Performed By: #### C BCD1 #### [facility] [address] [place] [address] WBC (Bld) [#/Vol] 10.06 thou/cmm High 3.98-10.04 [facility] Comment on above: Performed By: #### C BCD1 #### [place] [address] [place] Serumon 08-04-2020 [place] Serum <0.1 Low 0.6-1.2 [facility] Comment on above: Result Comment: Refe rence ranges and high/low indicator flags are provided as general guidelines only. The treating physician must determine appropriate target levels/dosing based on the specific clinical situation. Performed By: #### L ITH2 #### [facility] [address] [place] [address] MDRD GFRon 08-04-2020 GFR/1.73 sq M predicted among non-blacks MDRD (S/P/Bld) [Vol rate/Area] mL/min/{1.73_m2} Normal >60mL/min/1. 73m2 [facility] Comment on above: Result Comment: If t he patient is , multiply the result by 1.210. Performed By: #### G FR #### [facility] [address] [place] [address] Rapid, COVID 19on 08-04-2020 Rapid, COVID 19 Negative Normal Negative [facility] Comment on above: Result Comment: This test has been authorized by the FDA under an Emergency Use Authorization (EUA). Performed By: #### R COVD #### [facility] [address] [place] [address] Salicylateon 08-04-2020 Salicylate <1.0 Low 3.0-30.0 [facility] Comment on above: Result Comment: The therapeutic range varies and has been reported to be 3.0 to 10.0 mg/dL for anti-pyretic/analgesic conditions and 15.0 to 30.0 mg/dL for anti-inflammatory/rheumatic fever conditions. Ranges published by the instrument mover. Reference ranges and high/low indicator flags are provided as general guidelines only. The treating physician must determine appropriate target levels/dosing based on the specific clinical situation. Performed By: #### S AL #### [place] [address] Urinalysis Routineon 020 Bacteria LM.HPF (Urine sed) [#/Area] NONE Normal None [facility] Comment on above: Performed By: #### U RIN2 #### [facility] [address] [place] [address] Ep Cells Urine 0.5 /hpf Normal 0.0-5.0 [facility] Comment on above: Performed By: #### U RIN2 #### [place] [address] Hyaline Cast 0.0 /lpf Normal 0.0-1.0 [facility] Comment on above: Performed By: #### U RIN2 #### [place] [address] RBC LM.HPF (Urine sed) [#/Area] 0.8 /[HPF] Normal 0.0-5.0 [facility] Comment on above: Performed By: #### U RIN2 #### [place] [address] WBC LM.HPF (Urine sed) [#/Area] 1.9 /[HPF] Normal 0.0-5.0 [facility] Comment on above: Performed By: #### U RIN2 #### [facility] [address] [place] [address] Appearance (U) CLEAR Normal [facility] Comment on above: Performed By: #### U RIN2 #### [place] [address] Bilirubin (U) [Mass/Vol] Negative Normal Negative [facility] Comment on above: Performed By: #### U RIN2 #### [facility] [address] [place] [address] Color (U) YELLOW Normal [facility] Comment on above: Performed By: #### U RIN2 #### [facility] [address] [place] [address] Glucose Ql (U) Negative Normal Negative [facility] Comment on above: Performed By: #### U RIN2 #### [place] [address] Hemoglobin,Urine Negative Normal Negative [facility] Comment on above: Performed By: #### U RIN2 #### [place] [address] Ketone Urine Negative Normal Negative [facility] Comment on above: Performed By: #### U RIN2 #### [place] [address] Leukocytes Esterase Negative Normal Negative [facility] Comment on above: Performed By: #### U RIN2 #### [place] [address] Nitrites Urine Negative Normal Negative [facility] Comment on above: Performed By: #### U RIN2 #### [place] [address] pH (U) 6.5 [pH] Normal 5.0-8.0 [facility] Comment on above: Performed By: #### U RIN2 #### [place] [address] Protein (U) [Mass/Vol] Negative Normal Negative [facility] Comment on above: Performed By: #### U RIN2 #### [facility] [address] [place] [address] Specific [place], Ur 1.018 Normal 1.005-1.030 [facility] Comment on above: Performed By: #### U RIN2 #### [facility] [address] [place] [address] Urobilinogen,Ur 0.2 EU/dL Normal 0.2-1.0 [facility] Comment on above: Performed By: #### U RIN2 #### [facility] [address] [place] [address] Urine Drug Screenon 08-04-20 20 Urine Alcohol <11 Normal 0-11 [facility] Comment on above: Performed By: #### U DRG3 #### [facility] [address] [place] [address] Urine Amphetamine Negative Normal NEGATIVE [facility] Comment on above: Performed By: #### U DRG3 #### [facility] [address] [place] [address] Urine Barbiturates Negative Normal NEGATIVE [facility] Comment on above: Performed By: #### U DRG3 #### [facility] [address] [place] [address] Urine Benzodiazepine Negative Normal NEGATIVE [facility] Comment on above: Performed By: #### U DRG3 #### [facility] [address] [place] [address] Urine Cocaine Metab Negative Normal NEGATIVE [facility] Comment on above: Performed By: #### U DRG3 #### [facility] [address] [place] [address] Urine Opiates Negative Normal NEGATIVE [facility] Comment on above: Performed By: #### U DRG3 #### [facility] [address] [place] [address] Urine Oxycodone Negative Normal NEGATIVE [facility] Comment on above: Performed By: #### U DRG3 #### [facility] [address] [place] [address] Urine PCP Negative Normal NEGATIVE [facility] Comment on above: Result Comment: Test Cutoff Unit Amphetamines 1000 ng/mL Barbiturates 200 ng/mL Benzodiazepines 200 ng/mL Cannabinoids 50 ng/mL Cocaine 300 ng/mL Opiates 300 ng/mL Oxycodone 100 ng/mL Phencyclidine 25 ng/mL Reference Range: Negative at cutoff threshold Immunoassay screen only. Cross reactivity with other substances can occur with immunoassay screening. Detection of any drug(s) in this urine toxicology panel is presumptive only. These tests are for medical purposes only and should not be used for compliance monitoring, legal, or forensic use. In clinical settings, confirmatory testing is at the practitioner?s discretion.1 If clinically indicated, confirmation by high specificity, quantitative methodology may be requested on the same specimen through the laboratory at ([phone]) if contacted within 48 hours of initial 1. Substance Abuse and Mental Health Services Administration (2012). Clinical Drug Testing in Primary Care Technical Assistance Publication Series 32. Department of Health and Human Services, [place], p.10. Performed By: #### U DRG3 #### [place] [address] Urine THC Negative Normal NEGATIVE [facility] Comment on above: Performed By: #### U DRG3 #### [address] [address] CR Chest PA/LATon 11-16-2017 CR Chest PA/LAT Patient Name: SARAH RENTERIA Diagnostic Radiology Exam Date/Time 11/16/2017 11:28:47 EST Exam CR Chest PA/LAT Ordering Physician DORAN DO, MARTIN Accession Number [id number] CPT4 Codes 35415 () Reason For Exam POSITIVE TB SKIN TEST Report CLINICAL INFORMATION: Positive TB skin test. Frontal and lateral views of the chest were obtained. No old examinations were available for comparison at the time of dictation. No acute pulmonary disease is noted. The cardiovascular silhouette is within normal limits. There are no pleural effusions. There is no radiographic evidence of TB. Old healed left-sided rib fractures are visualized. IMPRESSION: No acute pulmonary disease. Report Dictated on Final Dictating Physician: DO RICKETTS ANTHONY Signed Date and Time: 11/16/2017 12:04 pm Signed by: DO RICKETTS ANTHONY Transcribed Date and Time: 11/16/2017 12:05 Normal [facility] Encounters Encounter Date Encounter Type Care Provider Facility Start: 04-08-2025 End: 04-08-2025 ambulatory Agapito Jiménez Facility:[facility] Start: 03-20-2025 End: 03-20-2025 ambulatory Agapito Jiménez Facility:[facility] Start: 03-12-2025 End: 03-12-2025 ambulatory Agapito Jiménez Facility:[facility] Start: 03-01-2025 End: 03-01-2025 ambulatory Barbara Acostai Facility:[facility] Start: 01-29-2025 End: 01-29-2025 ambulatory Agapito Jiménez [facility] Start: 01-21-2025 End: 01-21-2025 ambulatory Agapito Jiménez Facility:[facility] Start: 01-04-2025 Encounter for other preprocedural examination Dexter Guerra [facility] Start: 01-01-2025 End: 01-01-2025 ambulatory Agapito Jiménez [facility] Start: 12-17-2024 ambulatory Agapito Jiménez [facility] Start: 12-17-2024 End: 12-19-2024 Evaluation and management of inpatient Agapito Jiménez Facility:[facility] Start: 12-17-2024 ambulatory Agapito Jiménez [facility] Start: 12-13-2024 End: 12-13-[address] AGAPITO JIMÉNEZ DO Facility:[facility] Start: 12-13-2024 End: 12-13-[address] AGAPITO JIMÉNEZ DO [facility] Start: 12-05-2024 End: 12-05-2024 ambulatory Agapito Jiménez [facility] Start: 12-02-2024 End: 12-03-2024 Emergency department patient visit Agapito Jiménez Facility:[facility] Start: 11-23-2024 End: 11-23-2024 ambulatory Agapito Jiménez [facility] Start: 11-22-2024 End: 11-26-[address] AGAPITO JIMÉNEZ DO Facility:[facility] Start: 11-22-2024 End: 11-26-[address] AGAPITO JIMÉNEZ DO [facility] Start: 11-08-2024 End: 11-08-2024 ambulatory Agapito Jiménez Facility:[facility] Start: 11-04-2024 End: 11-04-2024 Emergency department patient visit Agapito Jiménez Facility:[facility] Start: 11-02-2024 End: 11-02-2024 ambulatory Agapito Jiménez Facility:[facility] Start: 10-25-2024 End: 10-25-2024 ambulatory Agapito Jiménez [facility] Start: 10-17-2024 End: 10-17-2024 ambulatory Agapito Jiménez [facility] Start: 10-11-2024 End: 10-11-[address] AGAPITO JIMÉNEZ DO Facility:[facility] Start: 10-11-2024 End: 10-11-[address] AGAPITO JIMÉNEZ DO [facility] Start: 10-11-2024 End: 10-11-2024 ambulatory Agapito Jiménez Facility:[facility] Start: 09-06-2024 End: 09-06-[address] AGAPITO JIMÉNEZ DO Facility:[facility] Start: 09-06-2024 End: 09-06-[address] AGAPITO JIMÉNEZ DO [facility] Start: 09-03-2024 End: 09-03-2024 ambulatory Neymar Croft Facility:[facility] Start: 08-30-2024 End: 08-30-2024 ambulatory Agapito Jiménez Facility:[facility] Start: 08-06-2024 ambulatory Luna Renée [facility] Facility :[facility] Start: 07-28-2024 ambulatory Minal corralesty:[facility] Start: 07-27-2024 End: 07-29-2024 [facility] Start: 07-17-2024 End: 07-17-[address] AGAPITO JIMÉNEZ DO Facility:[facility] Start: 07-17-2024 End: 07-17-[address] AGAPITO JIMÉNEZ DO [facility] Start: 06-29-[address] AGAPITO JIMÉNEZ DO Facili ty:[facility] Start: 06-22-2024 End: 06-22-[address] AGAPITO JIMÉNEZ DO Facility:[facility] Start: 06-22-2024 End: 06-22-[address] AGAPITO JIMÉNEZ DO [facility] Start: 06-04-2024 End: 06-04-[address] AGAPITO JIMÉNEZ DO Facility:[facility] Start: 06-04-2024 End: 06-04-[address] AGAPITO JIMÉNEZ DO [facility] Start: 05-29-2024 End: 05-29-2024 ambulatory ELIDIA MACK DIRECTOR INDUSTRIAL RELATIONS-[employer] FINISHER Facility:[facility] Start: 05-29-2024 End: 05-29-2024 Patient encounter procedure ELIDIA MACK DIRECTOR INDUSTRIAL RELATIONS-[employer] WIRE FINISHER [facility] Start: 05-11-2024 End: 05-11-2024 ambulatory Homar Friend Facility:[facility] Start: 05-07-2024 ambulatory OZ JERI DIRECTOR INDUSTRIAL RELATIONS-CN P Facility:B Start: 05-07-2024 End: 05-11-2024 Outreach Lab OZ JERI DIRECTOR INDUSTRIAL RELATIONS-[employer] WIRE FINISHER [facility] Start: 05-07-2024 End: 05-07-2024 ambulatory OZ JERI DIRECTOR INDUSTRIAL RELATIONS-[employer] WIRE FINISHER Facility:[facility] Start: 05-07-2024 End: 05-07-2024 Patient encounter procedure OZ JERI DIRECTOR INDUSTRIAL RELATIONS-[employer] WIRE FINISHER [facility] Start: 04-24-2024 End: 04-24-2024 ambulatory Homar Friend Facility:[facility] Start: 04-24-2024 End: 04-24-2024 ambulatory [facility] Friend Facility:[facility] Start: 04-16-2024 Telephone encounter Gayathri Wattsjose m Bowden DIRECTOR INDUSTRIAL RELATIONS.[employer] W[employer] FINISHER Work Phone: [facility] Comment on above: New Patient Start: 04-12-2024 Telephone encounter Gayathri Wattsjose m Bowden DIRECTOR INDUSTRIAL RELATIONS.[employer] W[employer] FINISHER Work Phone: [facility] Comment on above: New Patient Start: 12-14-2023 End: 12-14-[address] AGAPITO JIMÉNEZ DO Facility:[facility] Start: 07-25-2023 Evaluation and management of inpatient SALINA PHILLIPS [employer] FINISHER Facility:[id number] Start: 03-18-2023 End: 03-18-2023 Patient encounter procedure AGUS PATTEN MD [facility] Start: 01-13-2023 End: 01-17-[address] AGAPITO JIMÉNEZ DO [facility] Start: 01-05-2022 End: 01-05-2022 Patient encounter procedure INO MCFARLANE MD [facility] Start: 12-08-2021 End: 12-12-[address] AGAPITO JIMÉNEZ DO [facility] Start: 10-15-2021 End: 10-15-[address] AGAPITO JIMÉNEZ DO [facility] Start: 08-26-2021 End: 08-26-2021 Patient encounter procedure MEL JOSHUA DIRECTOR INDUSTRIAL RELATIONS-[employer]BEST[employer] WIRE FINISHER [facility] Start: 08-04-2020 End: 08-04-2020 Admission to establishment Stefania Hoang [facility] Start: 08-04-2020 Patient encounter procedure Stefania Baugh) [facility] Comment on above: Psychiatric Problem Start: 11-16-2017 Ambulatory Zafar Doran [facility] Procedures Date Procedure Procedure Detail Performing Clinician Start: 04-29-2024 Ultrasonography ELIDIA MACK DIRECTOR INDUSTRIAL RELATIONS-[place] Comment on above: liver and spleen Start: 03-21-2023 Electrocardiographic monitor and recorder, device (physical object) OZ WILCOX DIRECTOR INDUSTRIAL RELATIONS-[employer] WIRE FINISHER Comment on above: 03/15/23 - 03/21/23 1. Sinus rhythm with 1% PAC burden. 2. A single 6 beat symptomatic episode of SVT. 3. Some symptomatic recordings of skipped beat or heart racing corresponded to PACs versus brief SVT. Majority of the symptomatic recordings corresponded to sinus rhythm versus sinus tachycardia. Start: 03-18-2023 Cardiovascular stress testing OZ WILCOX DIRECTOR INDUSTRIAL RELATIONS-[employer] WIRE FINISHER Comment on above: 1. No evidence of si gnificant inducible ischemia or prior myocardial infarction. 2. Normal ejection fraction of 69% with normal wall motion. 3. Breast tissue attenuation artifact. No chest pain or discomfort during Lexiscan infusion. There were no electrocardiographic changes diagnostic for ischemia during the protocol. Start: 11-10-2021 Structure of left sh oulder region (body structure) DR AGAPITO JIMÉNEZ DO Comment on above: [facility] Start: 05-26-2021 Injection into shoulder joint MEL JOSHUA DIRECTOR INDUSTRIAL RELATIONS-[employer] WIRE FINISHER Comment on above: Dr. Lopez Start: 05-12-2021 Injection into facet joint of lumbar spine using fluoroscopic guidance MEL JOSHUA DIRECTOR INDUSTRIAL RELATIONS-[employer] WIRE FINISHER Start: 01-27-2021 Local anesthetic lum bar facet joint nerve block MEL JOSHUA DIRECTOR INDUSTRIAL RELATIONS-[employer] WIRE FINISHER Start: 11-07-2020 Shoulder injection SAIDA JOSHUA DIRECTOR INDUSTRIAL RELATIONS-[employer] WIRE FINISHER Start: 10-06-2020 Local anesthetic lum bar facet joint nerve block MEL JOSHUA DIRECTOR INDUSTRIAL RELATIONS-[employer] WIRE FINISHER Comment on above: L4-L5, L5-S1 Start: 09-25-2020 Cardiac catheterization MEL JOSHUA DIRECTOR INDUSTRIAL RELATIONS-[employer] WIRE FINISHER Start: 08-04-2020 Lipid 1996 panel - S jose eduardo or Plasma Gayathri Bowden DIRECTOR INDUSTRIAL RELATIONS.[employer] FINISHER Work Phone: Start: 07-18-2020 Echocardiography KAZ JOSHUA DIRECTOR INDUSTRIAL RELATIONS-[employer] WIRE FINISHER Comment on above: EF 60-65%. 2+ MR Start: 07-18-2020 Electrocardiographic monitor and recorder, device (physical object) MEL JOSHUA DIRECTOR INDUSTRIAL RELATIONS-[employer]BEST[employer] WIRE FINISHER Comment on above: Rare PAC's and PVC's . Short duration of SVT without any clear evidence of atrial fibrillation. No significant pauses were noted. No ventricular tachycardia episodes were noted. Start: 03-07-2020 Colonoscopy MEL WI TMER DIRECTOR INDUSTRIAL RELATIONS-[employer] WIRE FINISHER Start: 11-07-2017 Knee region structur e (body structure) MEL JOSHUA DIRECTOR INDUSTRIAL RELATIONS-[employer]BE[employer] WIRE FINISHER Comment on above: right arthroscopic Start: 04-26-2014 Echocardiography KAZ JOSHUA DIRECTOR INDUSTRIAL RELATIONS-[employer] WIRE FINISHER Comment on above: EF 60% Start: 04-26-2014 Stress echocardiography MEL JOSHUA DIRECTOR INDUSTRIAL RELATIONS-[employer]BE[employer] WIRE FINISHER Start: 04-24-2014 Colonoscopy Gayathri forman DIRECTOR INDUSTRIAL RELATIONS.[employer] WIRE FINISHER Work Phone: Start: 07-28-2012 Mammography Stefania Avilez g Start: 11-07-2011 Tonsillectomy MELJED WINKLER DIRECTOR INDUSTRIAL RELATIONS-[employer] WIRE FINISHER Start: 11-07-2011 Uvula palatina struc ture (body structure) MEL JOSHUA DIRECTOR INDUSTRIAL RELATIONS-[employer] WIRE FINISHER Comment on above: uvulaplasty Start: 11-07-1971 Ureteric structure ( body structure) MEL DIAZMER DIRECTOR INDUSTRIAL RELATIONS-[employer] WIRE FINISHER Comment on above: left, second ureter relocated on bladder Back structure, excl uding neck (body structure) OZ WILCOX DIRECTOR INDUSTRIAL RELATIONS-[employer]BEST[employer] WIRE FINISHER Comment on above: had dorsal stimulato r put in by Dr. Schaffer Plan of Treatment Date Care Activity Detail Author Start: 08-04-2025 Lipid panel Lipid Screening [facility] Start: 08-04-2025 LIPID SCREEN LIPID SCREEN [facility] Start: 07-08-2024 Influenza vaccination Influenz a Vaccine (Season Ended) [facility] Start: 11-07-2023 Behavioral Health Screening Behavioral Health Screening [facility] Start: 08-04-2023 DIABETES SCREEN DIABETES SCREEN [facility] Start: 08-04-2023 Diabetes Screening Diabetes Screenin g [facility] Start: 07-08-2023 Covid-19 Vaccine ( season) Covid-19 Vaccine ( season) [facility] Start: 05-09-2017 HPV TESTING HPV TESTING [facility] Start: 05-09-2017 PAP TESTING PAP TESTING [facility] Start: 05-09-2017 Screening for malign ant neoplasm of cervix [facility] Start: 04-24-2015 Screening for malign ant neoplasm of colon [facility] Start: 2015 SHINGRIX VACCINE (1 of 2) OLSEN GRIX VACCINE (1 of 2) [facility] Start: 2015 Tuberculosis screening COLOREC AMIRAH CANCER SCREENING,SEE MODIFIER [facility] Start: 07-28-2013 Mammography MAMMOGRAM [facility] Start: 07-28-2013 Screening for malign ant neoplasm of breast Mammogram Screening [facility] Start: 2010 Screening for malign ant neoplasm of colon [facility] Start: 01-07-1984 Urine microalbumin profile [facility] Start: 1983 HEPATITIS C SCREENING HEPATITIS C [facility] Start: 1983 Hepatitis C screening Hepatitis C [facility] Start: 1983 HIV SCREENING HIV SCREENING [facility] Start: 1983 HIV screening HIV Screening [facility] Immunizations Immunization Date Immunization Notes Care Provider Sonido snyder 09-10-[address] AGAPITO JIMÉNEZ DO [facility] 08-21-2024 influenza virus vaccine, unspecified formulation DR AGAPITO JIMÉNEZ DO [facility] 08-01-2024 SARS-CoV-2 (COVID-19 ) mRNAMUL.ORD![id number] DR AGAPITO JIMÉNEZ DO [facility] 07-20-2024 Pneumococcal conjuga te PCV20, polysaccharide [id number] conjugate, adjuvant, PF; Translations: [Prevnar 20] DR AGAPITO JIMÉNEZ DO [facility] 08-18-2023 SARS-CoV-2 (COVID-19 ) mRNAMUL.ORD![id number] PlunifyNPrimeloop [facility] 08-11-2023 influenza, injectabl e, quadrivalent, contains preservative; Translations: [Fluarix PF Quadrivalent ] Collisionable [facility] 09-06-2022 influenza virus vaccine, unspecified formulation DR AGAPITO JIMÉNEZ DO [facility] 02-11-2022 SARS-CoV-2 mRNA (aotjzoaczrh-pdpk-ehars se) vaccine DR AGAPITO JIMÉNEZ DO [facility] Comment on above: Result Comment: 2021: BOOSTER #2 08-15-2021 SARS-CoV-2 mRNA (tozinameran) vaccine DR AGAPITO JIMÉNEZ DO [facility] 08-12-2021 influenza virus vaccine, unspecified formulation DR AGAPITO JIMÉNEZ DO [facility] 02-10-2021 SARS-CoV-2 (COVID-19 ) mRNA BNT-162b2 vax MEL JOSHUA DIRECTOR INDUSTRIAL RELATIONS-ASBESTOS WIRE FINISHER [facility] 01-20-2021 SARS-CoV-2 (COVID-19 ) mRNA BNT-162b2 vax MELVILMA JOSHUA DIRECTOR INDUSTRIAL RELATIONS-ASBESTOS WIRE FINISHER [facility] Comment on above: Result Comment: 2020: [id number] 07-22-2020 influenza, injectabl e, quadrivalent, preservative free; Translations: [Fluarix PF Quadrivalent ] MEL JOSHUA DIRECTOR INDUSTRIAL RELATIONS-ASBESTOS WIRE FINISHER [facility] 07-22-2020 influenza virus vaccine, unspecified formulation Gayathri Bowden DIRECTOR INDUSTRIAL RELATIONS.[employer] WIRE FINISHER Work Phone: [facility] 10-02-2019 tetanus toxoid, redu yasmine diphtheria toxoid, and acellular pertussis vaccine, adsorbed MEL JOSHUA DIRECTOR INDUSTRIAL RELATIONS-ASBESTOS WIRE FINISHER [facility] 08-20-2019 influenza virus vaccine, unspecified formulation MEL JOSHUA DIRECTOR INDUSTRIAL RELATIONS-ASBESTOS WIRE FINISHER [facility] 07-31-2018 influenza virus vaccine, unspecified formulation MEL JOSHUA DIRECTOR INDUSTRIAL RELATIONS-ASBESTOS WIRE FINISHER [facility] 08-04-2017 influenza virus vaccine, unspecified formulation MEL JOSHUA DIRECTOR INDUSTRIAL RELATIONS-ASBESTOS WIRE FINISHER [facility] 08-20-2009 tetanus toxoid, redu yasmine diphtheria toxoid, and acellular pertussis vaccine, adsorbed MEL JOSHUA DIRECTOR INDUSTRIAL RELATIONS-ASBESTOS WIRE FINISHER [facility] 09-19-2006 influenza virus vaccine, unspecified formulation Stefania Hoang [facility] Work Phone: Payers Date Payer Category Payer Unknown 2024 Self-pay 2023 Unknown [id number] 2021 Medicare [facility] AARP MEDICAR E [facility] MEDICARE HMO [id number] 2021-Present [phone] [address] [address] [place] [address] HMO [id number] 2020 Unknown [employer] PPO [id number] 2020-Present PPO [id number] 1965 Unknown [id number] 2.16.840.1.837244.3.579.2.159 1965 Unknown [id number] 2.16.840.1.225079.3.579.2.627 1965 Unknown [id number] 2.16.840.1.820874.3.579.2.627 1965 Unknown [id number] 2.16840.1.309995.3.579.2.627 1965 Unknown [id number] 2.16.840.1.289163.3.579.2.627 1965 Unknown [id number] 2.16.840.1.417682.3.579.2.627 1965 Unknown [id number] 2.16.840.1.608785.3.579.2.627 1965 Unknown [id number] 2.16.840.1.133284.3.579.2.627 1965 Unknown [id number] 2.840.1.839879.3.579.2.627 1965 Unknown [id number] 2.16840.1.267452.3.579.2.627 1965 Unknown [id number] 2.840.1.180041.3.579.2.627 1965 Unknown [id number] 2.840.1.512109.3.579.2.627 1965 Unknown [id number] 2.840.1.261517.3.579.2.627 Unknown [id number] 2.840.1.485494.3.579.2.462 Unknown [id number] 2.840.1.844646.3.579.2.462 Unknown [id number] 2.840.1.485228.3.579.2.462 Unknown [id number] 2.840.1.149379.3.579.2.462 Unknown [id number] 2.840.1.455379.3.579.2.462 Unknown [id number] 2.840.1.650168.3.579.2.462 Unknown [id number] 2.840.1.605302.3.579.2.462 Unknown [id number] 2.840.1.882083.3.579.2.462 Unknown [id number] 2.840.1.430402.3.579.2.462 Unknown [id number] 2.16840.1.854565.3.579.2.462 Unknown [id number] 2.16840.1.651914.3.579.2.462 Unknown [id number] 2.16840.1.858522.3.579.2.462 Unknown [id number] 2.840.1.370435.3.579.2.462 Unknown [id number] 2.16840.1.794905.3.579.2.462 Unknown [id number] 2.16.840.1.149761.3.579.2.462 Unknown [id number] 2.16.840.1.348084.3.579.2.462 Unknown [id number] 2.840.1.353939.3.579.2.462 Unknown [id number] 2.16840.1.045535.3.579.2.462 Unknown [id number] 2.840.1.455682.3.579.2.462 Unknown [id number] 2.840.1.544105.3.579.2.462 Unknown [id number] 2.840.1.830950.3.579.2.462 Unknown [id number] 2.840.1.331951.3.579.2.462 Unknown [id number] 2.840.1.210677.3.579.2.462 Unknown [id number] 2.840.1.578078.3.579.2.462 Unknown [id number] 2.840.1.275778.3.579.2.462 Unknown [id number] 2.840.1.419177.3.579.2.462 Unknown [id number] 2.840.1.783344.3.579.2.462 Unknown [id number] 2.840.1.907036.3.579.2.462 Unknown [id number] 2.16840.1.572985.3.579.2.462 Unknown [id number] 2.16840.1.169461.3.579.2.462 Unknown [id number] 2.840.1.148159.3.579.2.462 Unknown [id number] 2.16.840.1.098005.3.579.2.462 Unknown [id number] 2.16.840.1.835568.3.579.2.462 Unknown [id number] 2.16.840.1.930055.3.579.2.462 Unknown [id number] 2.16.840.1.533715.3.579.2.462 Unknown [id number] 2.16.840.1.761211.3.579.2.462 Unknown [id number] 2.16.840.1.055809.3.579.2.462 Social History Date Type Detail Facility Start: 08-04-2020 End: 07-20-2024 Tobacco smoking status NHIS Former smoker [facility] End: 07-21-2009 History of tobacco use Current smoker [facility] End: 07-21-2009 History of tobacco use Cigarette Smoker [facility] Start: 08-04-2020 End: 10-13-2020 Cigarettes smoked current (pack per day) - Reported [facility] Start: 05-09-2012 End: 08-04-2020 Tobacco use and exposure Never used [facility] Start: 08-04-2020 End: 06-22-2022 Alcohol intake Current drinker of alcohol (finding) [facility] Start: 05-16-2014 Alcohol Comment 1 or 2 beers per wee k [facility] Sex Assigned At Not on file [facility] Exposure to SARS-CoV -2 (event) Not sure [facility] Start: 1965 Sex Assigned At Female A [facility] Start: 08-05-2020 End: 10-13-2020 Tobacco use panel [facility] How hard is it for y ou to pay for the very basics like food, housing, medical care, and heating Not very hard [facility] PHQ-2 Score 2 [facility] (I/We) worried wheaneta er (my/our) food would run out before (I/we) got money to buy more. Never true [facility] Start: 08-05-2020 Education 21 [facility] Start: 01-21-2023 Gender identity Identifies as female gender (finding) [facility] Start: 01-21-2023 Sexual orientation Choose not to dis close [facility] Start: 01-21-2023 Sexual orientation Homosexual (findi ng) [facility] O[facility] Start: 12-28-2018 Sex Female (finding) [facility] Clinical Notes 03-18-2023 to 12-17-2024 Telephone Encounter - Luis Bruner - 04/16/2024 10:35 AM EDTTelephone Encounter - Luis Bruner - 04/16/2024 10:35 AM EDTRadiologyRadiologyRadiologyRadiologyLaboratoryLaboratoryLaboratory Note Date & Type Note Facility 12-17-2024 Note [facility] 07-29-2024 Note [facility] 07-17-2024 Note ORIGINAL EXAMINATION: CT OF THE ABDOMEN AND PELVIS WITH CONTRAST 07/17/2024 9:30 am TECHNIQUE: CT of the abdomen and pelvis was performed with the administration of intravenous contrast. Multiplanar reformatted images are provided for review. Automated exposure control, iterative reconstruction, and/or weight based adjustment of the mA/kV was utilized to reduce the radiation dose to as low as reasonably achievable. COMPARISON: None. HISTORY: ORDERING SYSTEM PROVIDED HISTORY: Reason for Exam: left upper quadrant pain, recent mono illness, history of fatty liver and mesenteric lymphadenopathy FINDINGS: The bilateral lung bases are unremarkable. A spinal cord stimulator is noted within the lower thoracic spine. Mild degenerative changes are noted within the spine. There is a remote left 7th rib deformity. No acute osseous abnormalities are identified. There are few small hypodensities within the liver which are too small to characterize, but likely represent benign hepatic cysts. The spleen, adrenal glands, gallbladder, and pancreas are normal in appearance. Bilateral nephrograms are symmetric. Scarring is seen at the superior pole of the right kidney. No evidence of hydronephrosis is seen. The aorta is normal in caliber with mild atherosclerosis. The small and large bowel demonstrate no acute abnormalities. Very mild sigmoid diverticulosis without evidence of diverticulitis. No evidence of free fluid or free air within the abdomen. No overt lymphadenopathy is seen. The bladder appears grossly normal. There is a lobular contour to the uterus, like secondary to fibroids. No evidence of free fluid or lymphadenopathy within the pelvis. No additional contributory abnormality seen. IMPRESSION: Renal scarring seen at the right renal superior pole. Uterine fibroids. I have personally reviewed the images of this examination and agree with the resident's findings and interpretation. Interpreted by: Tanner Stephen Preliminary Report By: Kandi George Electronically signed By Tanner Stephen Dictated Date: 07/17/2024 11:47:40 AM Prelim Date: 07/17/2024 4:33:08 PM Sign Date: 07/17/2024 4:33:08 PM Ordering Provider: [facility] 06-22-2024 Note ORIGINAL EXAMINATION: LEFT UPPER QUADRANT ULTRASOUND 06/22/2024 8:38 am COMPARISON: None. HISTORY: ORDERING SYSTEM PROVIDED HISTORY: Reason for Exam: left upper quadrant pain, mono, rule out splenomegaly FINDINGS: SPLEEN: Spleen measures 14 3 x 5 x 5 cm and is top-normal in size. There is no splenic mass. LEFT KIDNEY: Measures 13.1 x 5.0 x 5.0 cm. There is appropriate differential cortical and hilar echotexture. No cortical thinning or hydronephrosis is seen. There is no mass lesion or stone. OTHER: No evidence of right upper quadrant ascites. IMPRESSION: Unremarkable left upper quadrant ultrasound. Interpreted by: Daniel Lopez DO Preliminary Report By: Daniel Lopez DO Electronically signed By Daniel Lopez DO Dictated Date: 06/22/2024 9:25:18 AM Prelim Date: 06/22/2024 9:33:30 AM Sign Date: 06/22/2024 9:33:30 AM Ordering Provider: [facility] 05-09-2024 Note . MICRO - Microbiology PROCEDURE: Urine Culture [*1] SOURCE: Urine, Clean Catch BODY SITE: COLLECTED DATE/TIME: 05/07/2024 10:26 EDT RECEIVED DATE/TIME: 05/07/2024 19:26 EDT START DATE/TIME: 05/07/2024 19:27 EDT FREE TEXT SOURCE: FINAL REPORTS Final Report [] Verified Date/Time/Personnel: 05/09/2024 07:39 EDT <10,000 cfu/ml. No Significant growth. Sensitivity not indicated. PRELIMINARY REPORTS Preliminary Report [] Verified Date/Time/Personnel: 05/08/2024 11:27 EDT No growth to date Performing Locations *1: This test was performed at: [facility], [address] [place] [address], [id number] , [facility] ([place]) 04-16-2024 Telephone encounter Note Attempted to call and schedule appointment, but there's a recording that said it could not be connected. Luis Bruner [facility] 04-16-2024 Miscellaneous Notes Attempted to call and schedule appointment, but there's a recording that said it could not be connected. Luis Bruner OK to schedule for back pain, consult for treatment only, no meds Records from PCP placed into vickey Bowden APRN.[employer]BE[employer] WIRE FINISHER documented in this encounter [facility] 04-16-2024 Telephone encounter Note OK to schedule for back pain, consult for treatment only, no meds Records from PCP placed into vickey Bowden APRN.ASBESTOS WIRE FINISHER [facility] Work Phone: 04-12-2024 Telephone encounter Note OK to schedule for neck and back pain, consult for treatment only, no meds as she is on daily benzodiazepines Records from PCP placed into vickey Bowden APRN.ASBESTOS WIRE FINISHER [facility] Work Phone: 04-12-2024 Miscellaneous Notes OK to schedule for neck and back pain, consult for treatment only, no meds as she is on daily benzodiazepines Records from PCP placed into scan Gayathri Bowden APRN.ASBESTOS WIRE FINISHER documented in this encounter [facility] 07-25-2023 Note ED Nursing Discharge Summary Entered On: 07/25/2023 16:49 EDT Performed On: 07/25/2023 16:49 EDT by Julissa Crawford RN CT Information [id number] ED IV's : No IV ED IV Site Assessment : No IV ED Vitals Completed : N/A ED Final Assessment Completed : Yes ED Progress Note Completed : Yes Complete all PRN/Pain response forms? : No ED Disassociate Patient from Monitor : Yes Updated Depart Time : Yes ED Belongings sent w patient [id number] : Yes Valuables Complete : Not applicable Julissa Crawford RN - 07/25/2023 16:49 EDT Education Instructions given to : Patient TeachBack Methodology : TeachBack, Explanation Barriers to Learning : None evident Julissa Crawford RN - 07/25/2023 16:49 EDT ED Assistance Summary Assistance Given? : No Julissa Crawford RN - 07/25/2023 16:49 EDT [facility] 03-18-2023 Note ORIGINAL NM MYOCARDIAL SPECT STRESS/REST CLINICAL STATEMENT: Chest pain TECHNIQUE: Lexiscan dose:0.4 mg Radiopharmaceutical (stress): Tc-99m Sestamibi Dose:31.4 mCi Radiopharmaceutical (rest): Tc-99m Sestamibi Dose:10.4 mCi SPECT acquisition and processing Reconstruction and reorientation of SPECT images into short axis, vertical and horizontal long axis planes Quantitative LVEF assessment COMPARISON:None REPORT:The LEFT ventricle is normal in size. On gated imaging the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
--- OUTSIDE RECORDS SUMMARY | 2025-05-27 21:27 | XMS RPT_ITS | CCD ---
Author Organization [facility] Care Team Providers [facility] Worker Name Role Phone Zafar Doran Unavailable Unavailable PROVIDER, UNKNOWN Unavailable Unavailable No, PCP Unavailable Unavailable Agapito Jiménez Primary Care Provider [phone] ROMAR DO, DR OSUNA Primary Care Physician [phone] SALINA PHILLIPS CNP Attending Unavailable REGINO JOHNSON MD Admitting Unavailable UnAvailable Primary Care Unavailable Agapito Jiménez DO Primary Care Provider [phone] JERI DAVIS-KEVIN, OZ Attending Unavai lable ROMAR [...] Unavailable Koram, Luna Renée Referring Unavailable Roberta, [place] Attending Unavailable Romar, Agapito Primary Care Unavailable [...] Consulting Unavailable Ilda Anaya Consulting Unavailable Bryan Ortgea Consulting Unavailable Sundar Bernal Consulting Unavailable David Morales Consulting Unavailable Shwetha Ojeda Consulting Unavailable Edilson Wills Consulting Unavailable Yelitza Schwartz Consulting Unavailable Liane Ludwig Consulting Unavailable Lani Beatty Consulting UnavailHarpal Das Consulting Unavailable Lyla Hughes Consulting Unavailable Eliseo Tejada Consulting Unavailable Joya Gusman Consulting Unavailable Namita Arias Consulting Unavailable Angela Rosa Consulting Unavailable Roberta, [place] Attending Unavailable Romar, Agapito Primary Care Unavailable [...] Unavailable Romar, Agapito Primary Care Unavailable Roberta, [place] Attending Unavailable Romar, Agapito Primary Care Unavailable Romar, Agapito Primary Care Unavailable Romar, Agapito Referring Unavailable Guerra, Dexter Attending Unavailable Roberta, [place] Attending Unavailable Romar, Agapito Primary Care Unavailable [...] sources) Bethanechol Drug Allergy 09-19-20 06 Intolerance [facility] (3 sources) Codeine Drug Allergy 07-17-20 11 Other: See Comments [facility] (4 sources) Sulfonamides (Antibiotic); Translations: [Sulfa (Sulfonamide Antibiotics)] Drug Allergy 08-12-20 11 Rash [facility] (3 sources) nasal sprays [Other] Propensity to adverse reactions 03-22-20 07 [facility] (16 sources) Sulfonamides (Antibiotic); Translations: [sulfa drugs] Drug allergy Eruption of skin (disorder) [facility] (15 sources) Adhesive bandage Allergy to substance rash [facility] (14 sources) Bethanechol; Translations: [bethanechol] Drug Allergy Saliva (substance) [facility] (2 sources) Dairy products Food allergy Gastrointestinal irritation (disorder) [facility] (1 source) Adhesive Tape Drug allergy (disorder) 03-20-20 [facility] (1 source) Bethanechol Drug Allergy 03-20-20 [facility] Medications Current Medications Medication Drug Class(es) [...] Comment on above: Take 1 tablet by [facility] once daily. celecoxib 200 mg oral capsule [...] Comment on above: Take 1 capsule by [facility] once daily. 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 Start Date: 01/05/22 Stop Date: 02/04/22 Status: Ordered Start: 08-11-2021 End: 11-09-2021 gabapentin 300 mg oral capsu le Dose : 300 mg = 1 cap(s), Oral, QID, # 360 cap(s), 4 Refill(s), Pharmacy: [facility]/pharmacy #[id number], Lumbosacral spondylosis without myelopathy Degeneration of lumbosacral [...] qDay, # 60 cap(s), 0 Refill(s), Pharmacy: [facility], 164.46, cm, 04/22/21 8:56:00 EDT, [...] qDay, # 90 tab(s), 3 Refill(s), Pharmacy: [facility], 168, cm, 01/12/24 8:56:00 EST, Height, kg, 01/12/24 8:56:00 EST, Dosing Weight Start Date: 04/30/24 Status: Ordered Quantity: 90.0 Unit: tab(s) Repeat number: 4 Start: 03-09-2023 losartan 25 mg oral tablet Dose : 25 mg = 1 tab(s), Oral, qDay, # 30 tab(s), 6 Refill(s), Pharmacy: [facility] #[id number], 165.1, cm, 03/09/23 9:00:00 EDT, Height Start [...] Refill(s), 01/27/23 10:26:00 EDT, Pharmacy: [facility] #[id number], 166, cm, 01/13/23 10:00:00 EST... Start Date: [...] palpitations, # 180 tab(s), 3 Refill(s), Pharmacy: [facility], 168, cm, 01/12/24 8:56:00 EST, Height, kg, 01/12/24 8:56:00 EST, Dosing Weight Start Date: 02/06/24 Status: Ordered Quantity: 180.0 Unit: tab(s) Repeat number: 4 Start: 11-09-2023 take 1.5 tablets by mouth once daily metoprolol succinate 50 mg oral TABLET extended release See Instructions, 1.5 tab daily, # 135 tab(s), 3 Refill(s), Pharmacy: [facility], 164.6, cm, 09/14/23 9:07:00 EST, Height, kg, 09/14/23 9:07:00 EST, Dosing Weight Start Date: 11/09/23 Status: Ordered Start: 08-11-2020 metoprolol suc cinate 50 mg oral TABLET extended release Dose : 50 mg = 1 tab(s), Oral, qDay, # 90 tab(s), 3 Refill(s), Pharmacy: [facility]/pharmacy #[id number], 166, cm, 07/30/20 10:39:00 EDT, Height, kg, 07/30/20 10:39:00 EDT, Dosing Weight Start Date: 08/11/20 Status: Ordered Start: 08-11-2020 metoprolol suc cinate 50 mg oral TABLET extended release Dose : 50 mg = 1 tab(s), Oral, qDay, # 90 tab(s), 3 Refill(s), Pharmacy: [facility]/pharmacy #[id number], 166, cm, 07/30/20 10:39:00 EDT, Height, kg, 07/30/20 10:39:00 EDT, Dosing Weight Start Date: 08/11/20 Status: Ordered Start: 09-19-2018 take 1 tablet by josefina th once daily metoprolol succinate ER (TOPROL XL) 25 mg 24 hr tablet Take 50 mg by mouth once daily. 0 09/19/2018 Active Comment on above: Take 50 mg by mouth once daily. [facility] Medication (12 sources) Start: 02-17-2022 [facility] Medication Pt. has medical marijuana card, 0 Refill(s), 103.2 Start Date: 02/17/22 Status: Ordered Repeat number: 1 Start: 02-17-2022 [facility] Medicatio n Pt. has medical marijuana card, 0 Refill(s), 103.2 Start Date: 02/17/22 Status: Ordered nitrofurantoin macrocrystals-monohydrate 100 mg oral capsule (2 sources) Start: 01-01-2022 End: 2022 nitrofurantoin macrocrystals-monohydrate 100 mg oral capsule Dose : 100 mg = 1 cap(s), Oral, BID, Take with food. Drink plenty of fluids., X 5 day(s), # 10 cap(s), 0 Refill(s), 01/06/22 10:02:00 EST, Pharmacy: [facility], 166, cm, 12/08/21 8:28:00 EST, Height, 102.7, kg, 12/08/21 8:28:00 EST, Dosing We... Start Date: 01/01/22 Stop Date: 01/06/22 Status: Ordered Start: 12-08-2021 End: 12-13-2021 nitrofurantoin macrocrystals -monohydrate 100 mg oral capsule Dose : 100 mg = 1 cap(s), Oral, BID, Take with food. Drink plenty of fluids., X 5 day(s), # 10 cap(s), 0 Refill(s), 12/13/21 10:43:00 EST, Pharmacy: [facility], 166, cm, 12/08/21 8:28:00 EST, [...] 0 Refill(s), 05/12/24 10:34:00 AM EDT, Pharmacy: [facility] #[id number], Dysuria, 165, cm, 05/07/24 [...] qDayAC, # 90 tab(s), 1 Refill(s), Pharmacy: [facility], 164, cm, 09/06/24 14:34:00 EDT, Height, kg, 09/06/24 14:34:00 EDT, Dosing Weight Start Date: 09/10/24 Stop Date: 03/09/25 Status: Ordered Quantity: 90.0 Unit: tab(s) Repeat number: 2 Start: 01-12-2024 End: 07-10-2024 Protonix 40 mg oral enteric coated tablet Dose : 40 mg = 1 tab(s), Oral, qDayAC, # 90 tab(s), 1 Refill(s), Pharmacy: [facility], 168, cm, 01/12/24 8:56:00 EST, Height, kg, 01/12/24 8:56:00 EST, Dosing Weight Start Date: 01/12/24 Stop Date: 07/10/24 Status: Ordered Start: 04-22-2021 End: 07-21-2021 Protonix 40 mg oral enteric coated tablet Dose : 40 mg = 1 tab(s), Oral, qDay, # 90 tab(s), 0 Refill(s), Pharmacy: [facility], 164.46, cm, 04/22/21 8:56:00 EDT, [...] qHS, # 100 tab(s), 1 Refill(s), Pharmacy: [facility], 164, cm, 09/06/24 14:34:00 EDT, [...] day, # 13 tab(s), 3 Refill(s), Pharmacy: [facility], 164, cm, 11/22/24 9:38:00 EST, Height, kg, 11/22/24 9:34:00 EST, Dosing Weight Start Date: 12/03/24 Status: Ordered Quantity: 13.0 Unit: tab(s) Repeat number: 4 baclofen 10 mg oral tablet (4 sources) gamma-Aminobutyric Acid-ergic Agonist Start: 04-15-2021 End: 10-12-2021 baclofen 10 mg oral tablet Dose : 10 mg = 1 tab(s), Oral, Daily, PRN Pain, # 90 tab(s), 1 Refill(s), Pharmacy: [facility], Lumbosacral spondylosis without myelopathy, 165.1, cm, 04/15/21 10:28:00 EDT, Height, kg, 04/15/21 10:28:00 EDT, Dosing Weight Start Date: 04/15/21 Stop Date: 10/12/21 Status: Ordered capsaicin 0.33 mg/ml topical cream (3 sources) Start: 10-08-2024 End: 11-07-2024 capsaicin 0.033% topical cream Apply 1 diana, Topical, QID, PRN as needed for pain, wash hands thoroughly after application, # 56.6 gram(s), 0 Refill(s), Pharmacy: [facility] #[id number], Cream, 164, cm, 09/06/24 [...] medication., # 42 tab(s), 0 Refill(s), Pharmacy: [facility], 168, cm, 01/12/24 8:56:00 EST, [...] water, # 90 cap(s), 1 Refill(s), Pharmacy: [facility], 165.1, cm, 06/04/24 15:25:00 EDT, [...] Swelling, # 14 tab(s), 0 Refill(s), Pharmacy: [facility], 166, cm, 12/08/21 8:28:00 EST, Height, kg, 12/08/21 8:28:00 EST, Dosing Weight Start Date: 12/10/21 Stop Date: 12/24/21 Status: Ordered Start: 11-30-2021 End: 12-07-2021 Lasix 20 mg oral tablet Dose : 20 mg = 1 tab(s), Oral, qDay, # 7 tab(s), 0 Refill(s), Pharmacy: [facility], 166.1, cm, 11/30/21 14:37:00 EST, [...] 30 tab(s), 1 Refill(s), Pharmacy: [facility] #[id number], 166, cm, 01/13/23 10:00:00 EST, Height Start Date: 01/13/23 Stop Date: 03/14/23 Status: Ordered Start: 01-05-2022 meloxicam 7.5 mg oral tablet Dose : 7.5 mg = 1 tab(s), Oral, qDay, PRN Pain, # 30 tab(s), 2 Refill(s), Pharmacy: [facility], Lumbosacral spondylosis without myelopathy Degeneration of cervical intervertebral disc, 165.1, cm, 01/05/22 8:51:00 EST, Height, kg, 01/05/22 8... Start Date: 01/05/22 Status: Ordered potassium chloride 10 meq extended release oral capsule (3 sources) Start: 11-30-2021 End: 12-07-2021 potassium chloride 10 mEq or al capsule, extended release Dose : 10 mEq = 1 cap(s), Oral, qDay, # 7 cap(s), 0 Refill(s), Pharmacy: [facility], 166.1, cm, 11/30/21 14:37:00 EST, Height, kg, 11/30/21 14:37:00 EST, Dosing Weight Start Date: 11/30/21 Stop Date: 12/07/21 Status: Ordered Start: 11-30-2021 End: 12-07-2021 potassium chloride 10 mEq or al capsule, extended release Dose : 10 mEq = 1 cap(s), Oral, qDay, # 7 cap(s), 0 Refill(s), Pharmacy: [facility], 166.1, cm, 11/30/21 14:37:00 EST, [...] Uterine leiomyoma 12-22-2020 Episodic Comment on above: [place] CT abdomen , suspected, small Cardiac dysrhythmias [...] Mesenteric lymphadenopathy 12-22-2020 Episodic Comment on above: [place] CT scan 12/28, small, unchanged from prior [...] of rib 12-22-2020 Episodic Comment on above: [place] CT abdomen , old Other gastrointestinal disorders [...] Liver cyst 04-29-2020 Chronic Comment on above: [place] CT abdomen , stable Other liver diseases [...] Long-term current use of benzodiazepine; Translations: [Other fdc (current) drug therapy] Onset: 10-15-2018 10-15-2018 Episodic [...] Summary (1)on 025 PT D/C Summary (1) [facility] Re-Evaluation - PT (1)on Re-Evaluation - PT (1) Normal [facility] Gastroenterology Visit Repor ton 03-19-2025 Gastroenterology Visit Report Normal [facility] Lumbar Spine 2 or 3 Viewson 03-12-2025 Lumbar Spine 2 or 3 Views Normal [facility] Orthopedic Visit Reporton Orthopedic Visit Report Normal [facility] MR/POSTOP.ANEon 03-01-2025 MR/POSTOP.ANE Normal [facility] MR/SYKHIGAZ2is 03-01-2025 MR/POSTOPAN2 Normal [facility] Surgery Specimen Level Ion 0 03-01-2025 Surgery Specimen Level I Normal [facility] Comment on above: Performed By: #### P FLORENTIN ####[facility] [address] [place], [place], [address] MR/PAT.ANEon 02-28-2025 MR/PAT.ANE Normal [facility] Re-Evaluation - PT (1)on Re-Evaluation - PT (1) Normal [facility] Lumbar Spine 2 or 3 Viewson 01-29-2025 Lumbar Spine 2 or 3 Views Normal [facility] Orthopedic Visit Reporton Orthopedic Visit Report Normal [facility] Basic Metabolic Profile (BMP )on 01-21-2025 BUN/CRE 20.8 RATIO High 08-26 [facility] Comment on above: Performed By: #### L 500.4100, L503.6150, L503.7505, L100.0500, L500.2500, L506.1001 ####[facility] [address] [place], [address] Urea nitrogen [Mass/Vol] 15 mg/dL Normal 02-23 [facility] Comment on above: Performed By: #### L 500.4100, L503.6150, L503.7505, L100.0500, L500.2500, L506.1001 ####[facility] [address] [place], [address] CBC-Complete Blood Cnt No Di ffon 01-21-2025 Erythrocyte distribution width (RBC) [Ratio] 13.1 % Normal 11.6-14.6 [facility] Comment on above: Performed By: #### L 500.4100, L503.6150, L503.7505, L100.0500, L500.2500, L506.1001 ####[facility] [address] [place], [address] Hematocrit (Bld) [Volume fraction] 34.1 % Low 37-47 [facility] Comment on above: Performed By: #### L 500.4100, L503.6150, L503.7505, L100.0500, L500.2500, L506.1001 ####[facility] [address] [place], [address] Hemoglobin (Bld) [Mass/Vol] 11.7 g/dL Low 12.0-15.0 [facility] Comment on above: Performed By: #### L 500.4100, L503.6150, L503.7505, L100.0500, L500.2500, L506.1001 ####[facility] [address] [place], [address] MCH (RBC) [Entitic mass] 32.3 pg High 27.0-32.0 [facility] Comment on above: Performed By: #### L 500.4100, L503.6150, L503.7505, L100.0500, L500.2500, L506.1001 ####[facility] [address] [place], [address] MCHC (RBC) [Mass/Vol] 34.3 g/dL Normal 32-36 [facility] Comment on above: Performed By: #### L 500.4100, L503.6150, L503.7505, L100.0500, L500.2500, L506.1001 ####[facility] [address] [place], [address] MCV (RBC) [Entitic vol] 94.2 fL Normal 81-99 [facility] Comment on above: Performed By: #### L 500.4100, L503.6150, L503.7505, L100.0500, L500.2500, L506.1001 ####[facility] [address] [place], [address] Platelet mean volume (Bld) [Entitic vol] 12.6 fL High 6.2-12.0 [facility] Comment on above: Performed By: #### L 500.4100, L503.6150, L503.7505, L100.0500, L500.2500, L506.1001 ####[facility] [address] [place], [address] Platelets (Bld) [#/Vol] 139 10*3/uL Low 150-450 [facility] Comment on above: Performed By: #### L 500.4100, L503.6150, L503.7505, L100.0500, L500.2500, L506.1001 ####[facility] [address] [place], [address] RBC (Bld) [#/Vol] 3.62 10*6/uL Low 4.2-5.4 [facility] Comment on above: Performed By: #### L 500.4100, L503.6150, L503.7505, L100.0500, L500.2500, L506.1001 ####[facility] [address] [place], [address] RDW SD 44.9 fl High 35.1-43.9 [facility] Comment on above: Performed By: #### L 500.4100, L503.6150, L503.7505, L100.0500, L500.2500, L506.1001 ####[facility] [address] [place], [address] WBC (Bld) [#/Vol] 5.4 10*3/uL Normal 4.4-11.0 [facility] Comment on above: Performed By: #### L 500.4100, L503.6150, L503.7505, L100.0500, L500.2500, L506.1001 ####[facility] [address] [place], [address] Ironon 01-21-2025 Iron [Mass/Vol] 55 ug/dL Normal 50-170 [facility] Comment on above: Performed By: #### L 500.4100, L503.6150, L503.7505, L100.0500, L500.2500, L506.1001 ####[facility] [address] [place], [address] L503.7505on 01-21-2025 Natriuretic peptide B (Bld) [Mass/Vol] 562 pg/mL Normal <=900 [facility] Comment on above: Result Comment: Hear t Failure Unlikely: < 300 pg/mLHeart Failure Likely< 50 Years: > 450 pg/mL50-75 Years: > 900 pg/mL>75 Years: > 1800 pg/mL Performed By: #### L 500.4100, L503.6150, L503.7505, L100.0500, L500.2500, L506.1001 ####[facility] [address] [place], [address] L506.1001on 01-21-2025 Vitamin D 25-OH 48.8 ng/mL Normal 30-100 [facility] Comment on above: Result Comment: Allie min D StatusDeficiency: <20 ng/mL (50nmol/L)Insufficiency: 20-30 ng/mL (50-75 nmol/L)Sufficiency: 30-100 ng/mL (75-250 nmol/L)Toxicity: >100 ng/mL (>250 nmol/L) Performed By: #### L 500.4100, L503.6150, L503.7505, L100.0500, L500.2500, L506.1001 ####[facility] [address] [place], [address] Lipid Profileon 01-21-2025 CHOL:HDL 2.84 Normal [facility] Comment on above: Performed By: #### L 500.4100, L503.6150, L503.7505, L100.0500, L500.2500, L506.1001 ####[facility] [address] [place], [address] Cholesterol [Mass/Vol] 146 mg/dL Normal <=200 [facility] Comment on above: Result Comment: Chol esterol level, Desirable <200 mg/dLBorderline high cholesterol 200-239 mg/dLHigh cholesterol >=240 mg/dLRecommendations of the NCEP Adult Treatment Panel for thefollowing risk-cutoff thresholds for the [place] [facility]. Performed By: #### L 500.4100, L503.6150, L503.7505, L100.0500, L500.2500, L506.1001 ####[facility] [address] [place], [address] Cholesterol in HDL [Mass/Vol] 51 mg/dL Normal [facility] Comment on above: Result Comment: Mireya onal Cholesterol Education Program (NCEP) guidelines:<40 mg/dL: Low HDL-cholesterol (major risk factor for CHD)>= 60 mg/dL: High HDL-cholesterol (negative risk factor forCHD)HDL-cholesterol is affected by a number of factors, e.g.smoking, exercise, hormones, sex and age. Performed By: #### L 500.4100, L503.6150, L503.7505, L100.0500, L500.2500, L506.1001 ####[facility] [address] [place], [address] Cholesterol in LDL [Mass/Vol] 75 mg/dL Normal [facility] Comment on above: Result Comment: Bord jysbjg=287-475 mg/dL Higher Obnu=152 mg/dL or greater Performed By: #### L 500.4100, L503.6150, L503.7505, L100.0500, L500.2500, L506.1001 ####[facility] [address] [place], [address] Cholesterol in VLDL [Mass/Vol] 19 mg/dL Normal 5-40 [facility] Comment on above: Performed By: #### L 500.4100, L503.6150, L503.7505, L100.0500, L500.2500, L506.1001 ####[facility] [address] [place], [address] Triglyceride [Mass/Vol] 97 mg/dL Normal [facility] Comment on above: Result Comment: The drugs N-Acetylcysteine and Metamizole may falselydepress this assay.Normal range: <150 mg/dLBorderline High: 150-199 mg/dLHigh: 200-499 mg/dLVery High: >500 mg/dL Performed By: #### L 500.4100, L503.6150, L503.7505, L100.0500, L500.2500, L506.1001 ####[facility] [address] [place], [address] Inital Evaluation (1) - PTon 01-07-2025 Inital Evaluation (1) - PT Normal [facility] Lumbar Spine 2 or 3 Viewson 01-01-2025 Lumbar Spine 2 or 3 Views Normal [facility] Orthopedic Visit Reporton Orthopedic Visit Report Normal [facility] Basic Metabolic Profile (BMP )on 12-18-2024 BUN/CRE 20.4 RATIO High 10-20 [facility] Comment on above: Performed By: #### L 500.2500, L100.0500 ####[facility] [address] [place], [address] CA,Total 7.7 mg/dL Low 8.5-10.1 [facility] Comment on above: Performed By: #### L 500.2500, L100.0500 ####[facility] [address] [place], [address] Chloride [Moles/Vol] 109 mmol/L High 98-107 [facility] Comment on above: Performed By: #### L 500.2500, L100.0500 ####[facility] [address] [place], [address] CO2 [Moles/Vol] 24.0 mmol/L Normal 21.0-32.0 [facility] Comment on above: Performed By: #### L 500.2500, L100.0500 ####[facility] [address] [place], [address] Creatinine [Mass/Vol] 0.74 mg/dL Normal 0.55-1.02 [facility] Comment on above: Result Comment: The validity of the calculated GFR GFRAA in patients over70 years has not been determined. Clinical correlation isessential. Performed By: #### L 500.2500, L100.0500 ####[facility] [address] [place], [address] ECRCL 89.16 ml/min Normal [facility] Comment on above: Performed By: #### L 500.2500, L100.0500 ####[facility] [address] [place], [address] EST GFR - AA 104 mL/min Normal >60 [facility] Comment on above: Result Comment: Afri can Citizen [place] GFR Calc Performed By: #### L 500.2500, L100.0500 ####[facility] [address] [place], [address] GAP 6 Normal 5-15 [facility] Comment on above: Performed By: #### L 500.2500, L100.0500 ####[facility] [address] [place], [address] GFR/1.73 sq M.predicted among non-blacks MDRD (S/P/Bld) [Vol rate/Area] 86 mL/min/{1.73_m2} Normal >60 [facility] Comment on above: Result Comment: Non- GFR Calc Performed By: #### L 500.2500, L100.0500 ####[facility] [address] [place], [address] Glucose [Mass/Vol] 143 mg/dL High 74-106 [facility] Comment on above: Result Comment: Fast ing Glucose result greater than or equal to 126 mg/dLsuggests DIABETES MELLITUS per A.D.A. criteria. Performed By: #### L 500.2500, L100.0500 ####[facility] [address] [place], [address] Potassium [Moles/Vol] 3.8 mmol/L Normal 3.5-5.1 [facility] Comment on above: Performed By: #### L 500.2500, L100.0500 ####[facility] [address] [place], [address] Sodium [Moles/Vol] 138 mmol/L Normal 136-145 [facility] Comment on above: Performed By: #### L 500.2500, L100.0500 ####[facility] [address] [place], [address] Urea nitrogen [Mass/Vol] 15 mg/dL Normal 7-18 [facility] Comment on above: Performed By: #### L 500.2500, L100.0500 ####[facility] [address] [place], [address] CBC-Complete Blood Cnt No Di ffon 12-18-2024 Erythrocyte distribution width (RBC) [Ratio] 12.3 % Normal 11.6-14.6 [facility] Comment on above: Performed By: #### L 500.2500, L100.0500 ####[facility] [address] [place], [address] Hematocrit (Bld) [Volume fraction] 32.1 % Low 37-47 [facility] Comment on above: Performed By: #### L 500.2500, L100.0500 ####[facility] [address] [place], [address] Hemoglobin (Bld) [Mass/Vol] 10.9 g/dL Low 12.0-15.0 [facility] Comment on above: Performed By: #### L 500.2500, L100.0500 ####[facility] [address] [place], [address] MCH (RBC) [Entitic mass] 32.1 pg High 27.0-32.0 [facility] Comment on above: Performed By: #### L 500.2500, L100.0500 ####[facility] [address] [place], [address] MCHC (RBC) [Mass/Vol] 34.0 g/dL Normal 32-36 [facility] Comment on above: Performed By: #### L 500.2500, L100.0500 ####[facility] [address] [place], [address] MCV (RBC) [Entitic vol] 94.4 fL Normal 81-99 [facility] Comment on above: Performed By: #### L 500.2500, L100.0500 ####[facility] [address] [place], [address] Platelet mean volume (Bld) [Entitic vol] 11.6 fL Normal 6.2-12.0 [facility] Comment on above: Performed By: #### L 500.2500, L100.0500 ####[facility] [address] [place], [address] Platelets (Bld) [#/Vol] 147 10*3/uL Low 150-450 [facility] Comment on above: Performed By: #### L 500.2500, L100.0500 ####[facility] [address] [place], [address] RBC (Bld) [#/Vol] 3.40 10*6/uL Low 4.2-5.4 [facility] Comment on above: Performed By: #### L 500.2500, L100.0500 ####[facility] [address] [place], [address] RDW SD 42.3 fl Normal 35.1-43.9 [facility] Comment on above: Performed By: #### L 500.2500, L100.0500 ####[facility] [address] [place], [address] WBC (Bld) [#/Vol] 10.9 10*3/uL Normal 4.4-11.0 [facility] Comment on above: Performed By: #### L 500.2500, L100.0500 ####[facility] [address] [place], [address] Lumbar Spine 2 or 3 Viewson 12-18-2024 Lumbar Spine 2 or 3 Views Normal [facility] Bedside Glucoseon 12-17-2024 FINGERSTICK GLU 97 mg/dL Normal 74-106 [facility] Comment on above: Result Comment: TOMER GALVEZ OF PATIENT CARE PER NURSING PROTOCOL Performed By: #### L 501.080 ####[facility] [address] [place], [address] MR/POSTOP.ANEon 12-17-2024 MR/POSTOP.ANE Normal [facility] MR/VRCJKSPR7mb 12-17-2024 MR/POSTOPAN2 Normal [facility] Operative Reporton Operative Report Normal [facility] Operative Report Normal [facility] Spine 1 View Any Levelon Spine 1 View Any Level Normal [facility] .GFRon 12-13-2024 Estimated Glomerular Filtration Rate 101 ml/min/1.73sqm Normal [facility] Comment on above: Result Comment: Stages [...] Performed By: #### G , BMP #### [address] [address] BMPon 12-13-2024 BUN/Creatinine Ratio 20 ratio Normal 7-27 [facility] Comment on above: Performed By: #### G FR, BMP #### [address] [address] Calcium [Mass/Vol] 8.8 mg/dL Normal 8.4-10.2 [facility] Comment on above: Performed By: #### G , BMP #### [address] [address] Chloride [Moles/Vol] 106 mmol/L Normal 98-107 [facility] Comment on above: Performed By: #### G FR, BMP #### [address] [address] CO2 [Moles/Vol] 27 mmol/L Normal 22-29 [facility] Comment on above: Performed By: #### G FR, BMP #### [address] [address] Creatinine [Mass/Vol] 0.65 mg/dL Normal 0.55-1.02 [facility] Comment on above: Result Comment: Test ing performed on Siemens Dimension EXL analyzer using a modified kinetic Serafin technique. Performed By: #### G FR, BMP #### [address] [address] Electrolyte Balance 7.0 mEq/L Normal 4.0-15.0 [facility] Comment on above: Performed By: #### G FR, BMP #### [address] [place], [place] [address] Glucose [Mass/Vol] 108 mg/dL High 70-105 [facility] Comment on above: Performed By: #### G , BMP #### [address] [address] Potassium [Moles/Vol] 4.1 mmol/L Normal 3.5-5.1 [facility] Comment on above: Performed By: #### G , BMP #### [address] [address] Sodium [Moles/Vol] 140 mmol/L Normal 136-145 [facility] Comment on above: Performed By: #### G , BMP #### [address] [address] Urea nitrogen [Mass/Vol] 13 mg/dL Normal 7-18 [facility] Comment on above: Performed By: #### G FR, BMP #### [address] [address] LABORATORYOrdered By: SYSTEM SYSTEM on 12-13-2024 Calcium [...] B (Bld) [Mass/Vol] 201 pg/mL High 0-125 [facility] Comment on above: Result Comment: NT-p roBNP results of less than 300 pg/mL effectively rules out acute congestive heart failure with 99% negative predictive value. Performed By: #### G , BMP #### [facility] [address] [place], [place] [address] Hepatitis A AB, Totalon 11-09 HEPATITIS A,TOT Negative Normal Negative [facility] Comment on above: Result Comment: Comm ent: [...] HAVtotal antibody results to IgM (e.g., panel #[id number] HAVAntibody w/ Rfx).Performed at: [id number] [place], [place] [id number] Director: Danny Rodríguez PhD, Phone: [phone] Performed By: #### L 3890.6005, L100.0100, M100.651, L500.2500, L3100.0300, L3890.6300, BTSPAT, L3890.6200 ####[facility] [address] [place], [address] MRSA/SAID NASAL SCREENon MRSA+SAID SCRN Reason for Exam: Jocelyn yadiel MRSA MRSA Negative S. AUREUS S. aureus Negative Normal [facility] Comment on above: Performed By: #### L 3890.6005, L100.0100, M100.651, L500.2500, L3100.0300, L3890.6300, BTSPAT, L3890.6200 ####[facility] [address] [place], [address] Basic Metabolic Profile (BMP )on 12-05-2024 BUN/CRE 14.7 RATIO Normal 10-20 [facility] Comment on above: Performed By: #### L 3890.6005, L100.0100, M100.651, L500.2500, L3100.0300, L3890.6300, BTSPAT, L3890.6200 ####[facility] [address] [place], [address] CA,Total 9.1 mg/dL Normal 8.5-10.1 [facility] Comment on above: Performed By: #### L 3890.6005, L100.0100, M100.651, L500.2500, L3100.0300, L3890.6300, BTSPAT, L3890.6200 ####[facility] [address] [place], [address] Chloride [Moles/Vol] 107 mmol/L Normal 98-107 [facility] Comment on above: Performed By: #### L 3890.6005, L100.0100, M100.651, L500.2500, L3100.0300, L3890.6300, BTSPAT, L3890.6200 ####[facility] [address] [place], [address] CO2 [Moles/Vol] 27.0 mmol/L Normal 21.0-32.0 [facility] Comment on above: Performed By: #### L 3890.6005, L100.0100, M100.651, L500.2500, L3100.0300, L3890.6300, BTSPAT, L3890.6200 ####[facility] [address] [place], [address] Creatinine [Mass/Vol] 0.75 mg/dL Normal 0.55-1.02 [facility] Comment on above: Result Comment: The validity of the calculated GFR GFRAA in patients over70 years has not been determined. Clinical correlation isessential. Performed By: #### L 3890.6005, L100.0100, M100.651, L500.2500, L3100.0300, L3890.6300, BTSPAT, L3890.6200 ####[facility] [address] [place], [address] EST GFR - AA 101 mL/min Normal >60 [facility] Comment on above: Result Comment: Afri can Citizen [place] GFR Calc Performed By: #### L 3890.6005, L100.0100, M100.651, L500.2500, L3100.0300, L3890.6300, BTSPAT, L3890.6200 ####[facility] [address] [place], [address] GAP 5 Normal 5-15 [facility] Comment on above: Performed By: #### L 3890.6005, L100.0100, M100.651, L500.2500, L3100.0300, L3890.6300, BTSPAT, L3890.6200 ####[facility] [address] [place], [address] GFR/1.73 sq M.predicted among non-blacks MDRD (S/P/Bld) [Vol rate/Area] 84 mL/min/{1.73_m2} Normal >60 [facility] Comment on above: Result Comment: Non- GFR Calc Performed By: #### L 3890.6005, L100.0100, M100.651, L500.2500, L3100.0300, L3890.6300, BTSPAT, L3890.6200 ####[facility] [address] [place], [address] Glucose [Mass/Vol] 89 mg/dL Normal 74-106 [facility] Comment on above: Performed By: #### L 3890.6005, L100.0100, M100.651, L500.2500, L3100.0300, L3890.6300, BTSPAT, L3890.6200 ####[facility] [address] [place], [address] Potassium [Moles/Vol] 4.1 mmol/L Normal 3.5-5.1 [facility] Comment on above: Performed By: #### L 3890.6005, L100.0100, M100.651, L500.2500, L3100.0300, L3890.6300, BTSPAT, L3890.6200 ####[facility] [address] [place], [address] Sodium [Moles/Vol] 139 mmol/L Normal 136-145 [facility] Comment on above: Performed By: #### L 3890.6005, L100.0100, M100.651, L500.2500, L3100.0300, L3890.6300, BTSPAT, L3890.6200 ####[facility] [address] [place], [address] Urea nitrogen [Mass/Vol] 11 mg/dL Normal 7-18 [facility] Comment on above: Performed By: #### L 3890.6005, L100.0100, M100.651, L500.2500, L3100.0300, L3890.6300, BTSPAT, L3890.6200 ####[facility] [address] [place], [address] CBC W/Diff, Automatedon 11-08 Absolute Lymph 2.42 X10 3/uL Normal 0.83-4.51 [facility] Comment on above: Performed By: #### L 3890.6005, L100.0100, M100.651, L500.2500, L3100.0300, L3890.6300, BTSPAT, L3890.6200 ####[facility] [address] [place], [address] Absolute Neut 5.1 X10 3/uL Normal 2.0-7.7 [facility] Comment on above: Performed By: #### L 3890.6005, L100.0100, M100.651, L500.2500, L3100.0300, L3890.6300, BTSPAT, L3890.6200 ####[facility] [address] [place], [address] Basophils/100 WBC (Bld) 0.7 % Normal 0-1 [facility] Comment on above: Performed By: #### L 3890.6005, L100.0100, M100.651, L500.2500, L3100.0300, L3890.6300, BTSPAT, L3890.6200 ####[facility] [address] [place], [address] Eosinophils/100 WBC (Bld) 4.6 % Normal 0-5 [facility] Comment on above: Performed By: #### L 3890.6005, L100.0100, M100.651, L500.2500, L3100.0300, L3890.6300, BTSPAT, L3890.6200 ####[facility] [address] [place], [address] Erythrocyte distribution width (RBC) [Ratio] 11.9 % Normal 11.6-14.6 [facility] Comment on above: Performed By: #### L 3890.6005, L100.0100, M100.651, L500.2500, L3100.0300, L3890.6300, BTSPAT, L3890.6200 ####[facility] [address] [place], [address] Hematocrit (Bld) [Volume fraction] 37.8 % Normal 37-47 [facility] Comment on above: Performed By: #### L 3890.6005, L100.0100, M100.651, L500.2500, L3100.0300, L3890.6300, BTSPAT, L3890.6200 ####[facility] [address] [place], [address] Hemoglobin (Bld) [Mass/Vol] 13.4 g/dL Normal 12.0-15.0 [facility] Comment on above: Performed By: #### L 3890.6005, L100.0100, M100.651, L500.2500, L3100.0300, L3890.6300, BTSPAT, L3890.6200 ####[facility] [address] [place], [address] IG% 0.400 Normal 0.0-0.9 [facility] Comment on above: Result Comment: IG% - Immature Granulocytes (promyelocytes, myelocytes andmetamyelocytes) > 1% indicates that a LEFT SHIFT is Present. Performed By: #### L 3890.6005, L100.0100, M100.651, L500.2500, L3100.0300, L3890.6300, BTSPAT, L3890.6200 ####[facility] [address] [place], [address] Lymphocytes/100 WBC (Bld) 28.7 % Normal 19-41 [facility] Comment on above: Performed By: #### L 3890.6005, L100.0100, M100.651, L500.2500, L3100.0300, L3890.6300, BTSPAT, L3890.6200 ####[facility] [address] [place], [address] MCH (RBC) [Entitic mass] 32.6 pg High 27.0-32.0 [facility] Comment on above: Performed By: #### L 3890.6005, L100.0100, M100.651, L500.2500, L3100.0300, L3890.6300, BTSPAT, L3890.6200 ####[facility] [address] [place], [address] MCHC (RBC) [Mass/Vol] 35.4 g/dL Normal 32-36 [facility] Comment on above: Performed By: #### L 3890.6005, L100.0100, M100.651, L500.2500, L3100.0300, L3890.6300, BTSPAT, L3890.6200 ####[facility] [address] [place], [address] MCV (RBC) [Entitic vol] 92.0 fL Normal 81-99 [facility] Comment on above: Performed By: #### L 3890.6005, L100.0100, M100.651, L500.2500, L3100.0300, L3890.6300, BTSPAT, L3890.6200 ####[facility] [address] [place], [address] Monocytes/100 WBC (Bld) 5.1 % Normal 0-10 [facility] Comment on above: Performed By: #### L 3890.6005, L100.0100, M100.651, L500.2500, L3100.0300, L3890.6300, BTSPAT, L3890.6200 ####[facility] [address] [place], [address] Neutrophils/100 WBC (Bld) 60.5 % Normal 47-70 [facility] Comment on above: Performed By: #### L 3890.6005, L100.0100, M100.651, L500.2500, L3100.0300, L3890.6300, BTSPAT, L3890.6200 ####[facility] [address] [place], [address] Nucleated RBC (Bld) [#/Vol] 0 10*3/uL Normal 0-5 [facility] Comment on above: Performed By: #### L 3890.6005, L100.0100, M100.651, L500.2500, L3100.0300, L3890.6300, BTSPAT, L3890.6200 ####[facility] [address] [place], [address] Platelet mean volume (Bld) [Entitic vol] 11.9 fL Normal 6.2-12.0 [facility] Comment on above: Performed By: #### L 3890.6005, L100.0100, M100.651, L500.2500, L3100.0300, L3890.6300, BTSPAT, L3890.6200 ####[facility] [address] [place], [address] Platelets (Bld) [#/Vol] 182 10*3/uL Normal 150-450 [facility] Comment on above: Performed By: #### L 3890.6005, L100.0100, M100.651, L500.2500, L3100.0300, L3890.6300, BTSPAT, L3890.6200 ####[facility] [address] [place], [address] RBC (Bld) [#/Vol] 4.11 10*6/uL Low 4.2-5.4 [facility] Comment on above: Performed By: #### L 3890.6005, L100.0100, M100.651, L500.2500, L3100.0300, L3890.6300, BTSPAT, L3890.6200 ####[facility] [address] [place], [address] RDW SD 39.6 fl Normal 35.1-43.9 [facility] Comment on above: Performed By: #### L 3890.6005, L100.0100, M100.651, L500.2500, L3100.0300, L3890.6300, BTSPAT, L3890.6200 ####[facility] [address] [place], [address] WBC (Bld) [#/Vol] 8.4 10*3/uL Normal 4.4-11.0 [facility] Comment on above: Performed By: #### L 3890.6005, L100.0100, M100.651, L500.2500, L3100.0300, L3890.6300, BTSPAT, L3890.6200 ####[facility] [address] [place], [address] HIV - WCHon 12-05-2024 HIV Non-Reactive Normal Nonreactive [facility] Comment on above: Order Comment: Reaso n for Exam: PRE-OP Performed By: #### L 3890.6005, L100.0100, M100.651, L500.2500, L3100.0300, L3890.6300, BTSPAT, L3890.6200 ####[facility] [address] [place], [address] Hepatitis B Surface Antibody on 12-05-2024 HEP B Surf Ab Reactive Normal [facility] Comment on above: Order Comment: Reaso n for Exam: PRE-OP Result Comment: Non Reactive: Inconsistent with immunity less than <10 mIU/mL Reactive: Consistent with immunity greater than or equal to 10 mIU/mL Performed By: #### L 3890.6005, L100.0100, M100.651, L500.2500, L3100.0300, L3890.6300, BTSPAT, L3890.6200 ####[facility] [address] [place], [address] Hepatitis C Antibodyon 12-05 Hepatitis C AB Non-Reactive Normal Nonreactive [facility] Comment on above: Order Comment: Reaso n for Exam: PRE-OP Result Comment: Non Reactive: < 0.8 Equivocal: >/= 0.8 to < 1.0 Reactive: >/= 1.0The CDC requires that a reactive/equivocal HCV antibodyresult be sent out for confirmation. HCV Quant by PCRtesting. Performed By: #### L 3890.6005, L100.0100, M100.651, L500.2500, L3100.0300, L3890.6300, BTSPAT, L3890.6200 ####[facility] [address] [place], [address] Magnesiumon 12-05-2024 Magnesium [Mass/Vol] 2.2 mg/dL Normal 1.6-2.6 [facility] Comment on above: Performed By: #### L 501.5200 ####[facility] [address] [place], [place], [address] Orthopedic Visit Reporton Orthopedic Visit Report Normal [facility] Type AND Screen - PAT ONLYon 12-05-2024 ABO and Rh group Nom (Bld) Blood group O Rh(D) positive Normal [facility] Comment on above: Order Comment: Surge ry Date: 12/17/24Reason for Laboratory Test PRE-[id number] Lumbar Fusion L4-5, possible cement augmentation Performed By: #### L 3890.6005, L100.0100, M100.651, L500.2500, L3100.0300, L3890.6300, BTSPAT, L3890.6200 ####[facility] [address] [place], [address] Emergency Department Summary on 12-02-2024 Emergency Department Summary Normal [facility] Orthopedic Visit Reporton Orthopedic Visit Report Normal [facility] LABORATORYOrdered By: Janes Luna on 11-22-2024 Albumin DL <= 20 mg/L (U) [Mass/Vol] 218 mcg/dL Invalid Interpretation Code AO ADM SS Albumin/Creatinine DL <= 20 mg/L (U) [Mass ratio] 6 mcg/mg Normal 0 - 30 mcg/mg AO Chemistry S Creatinine (U) [Mass/Vol] 36.1 mg/dL Invalid Interpretation Code AO ADM SS MALBRon 11-22-2024 U Creatinine 36.1 mg/dL Normal [facility] Comment on above: Performed By: #### Armando MERCADO BMP #### Richard [address] [address] U Microalb 218 mcg/dL Normal [facility] Comment on above: Performed By: #### Armando MERCADO, BMP #### Richard [address] [place], [place] [address] U Ratio Alb/Cre 6 mcg/mg Normal 0-30 [facility] Comment on above: Performed By: #### Armando MERCADO, BMP #### Richard [address] [address] Spine Lumbar (Routine)on Spine Lumbar (Routine) Normal [facility] Emergency Department Summary on 11-04-2024 Emergency Department Summary Normal [facility] Dexa Bone Density Studyon Dexa Bone Density Study Normal [facility] L/S Spine Bending Flex/Dinosaur 10-25-2024 L/S Spine Bending Flex/Ext Normal [facility] Orthopedic Visit Reporton Orthopedic Visit Report Normal [facility] Gastroenterology Visit Repor ton 10-17-2024 Gastroenterology Visit Report Normal [facility] .Auto Diffon 10-11-2024 Basophil, Absolute 0.0 10 3/mcL Normal 0.0-0.2 [facility] Comment on above: Performed By: #### A DIFF, TSHR, BMP, GFR, ANEU, CBC, PBNP #### [address] [address] Basophils/100 WBC (Bld) 0.6 % Normal 0.0-2.5 [facility] Comment on above: Performed By: #### A DIFF, TSHR, BMP, GFR, ANEU, CBC, PBNP #### [address] [address] Eosinophil, Absolute 0.4 10 3/mcL Normal 0.0-0.7 [facility] Comment on above: Performed By: #### A DIFF, TSHR, BMP, GFR, ANEU, CBC, PBNP #### [address] [address] Eosinophils/100 WBC (Bld) 5.7 % Normal 0.0-7.0 [facility] Comment on above: Performed By: #### A DIFF, TSHR, BMP, GFR, ANEU, CBC, PBNP #### [address] [address] Lymphocyte, Absolute 2.1 10 3/mcL Normal 0.9-4.3 [facility] Comment on above: Performed By: #### A DIFF, TSHR, BMP, GFR, ANEU, CBC, PBNP #### [address] [address] Lymphocytes/100 WBC (Bld) 29.1 % Normal 20.0-40.0 [facility] Comment on above: Performed By: #### A DIFF, TSHR, BMP, GFR, ANEU, CBC, PBNP #### [address] [address] Monocyte, Absolute 0.5 10 3/mcL Normal 0.1-1.4 [facility] Comment on above: Performed By: #### A DIFF, TSHR, BMP, GFR, ANEU, CBC, PBNP #### [address] [address] Monocytes/100 WBC (Bld) 6.5 % Normal 2.0-13.0 [facility] Comment on above: Performed By: #### A DIFF, TSHR, BMP, GFR, ANEU, CBC, PBNP #### [address] [address] Neutrophils/100 WBC (Bld) 58.1 % Normal 50.0-75.0 [facility] Comment on above: Performed By: #### A DIFF, TSHR, BMP, GFR, ANEU, CBC, PBNP #### [address] [address] .GFRon 10-11-2024 GFR 83 ml/min/1.73sqm Normal [facility] Comment on above: Result Comment: GFR [...] TSHR, BMP, GFR, ANEU, CBC, PBNP #### [address] [address] GFR Non- 68 ml/min/1.73sqm Normal [facility] Comment on above: Result Comment: GFR [...] TSHR, BMP, GFR, ANEU, CBC, PBNP #### [address] [address] .NEUABSon 10-11-2024 Neutrophil, Absolute 4.2 10 3/mcL Normal 2.3-8.1 [facility] Comment on above: Performed By: #### A DIFF, TSHR, BMP, GFR, ANEU, CBC, PBNP #### [address] [address] BMPon 10-11-2024 BUN/Creatinine Ratio 19 ratio Normal 7-27 [facility] Comment on above: Performed By: #### A DIFF, TSHR, BMP, GFR, ANEU, CBC, PBNP #### [address] [address] Calcium [Mass/Vol] 9.4 mg/dL Normal 8.4-10.2 [facility] Comment on above: Performed By: #### A DIFF, TSHR, BMP, GFR, ANEU, CBC, PBNP #### [address] [address] Chloride [Moles/Vol] 106 mmol/L Normal 98-107 [facility] Comment on above: Performed By: #### A DIFF, TSHR, BMP, GFR, ANEU, CBC, PBNP #### [address] [address] CO2 [Moles/Vol] 25 mmol/L Normal 22-29 [facility] Comment on above: Performed By: #### A DIFF, TSHR, BMP, GFR, ANEU, CBC, PBNP #### [address] [address] Creatinine [Mass/Vol] 0.85 mg/dL Normal 0.55-1.02 [facility] Comment on above: Result Comment: Test ing performed on Siemens Dimension EXL analyzer using a modified kinetic Serafin technique. Performed By: #### A DIFF, TSHR, BMP, GFR, ANEU, CBC, PBNP #### [address] [address] Electrolyte Balance 13.0 mEq/L Normal 4.0-15.0 [facility] Comment on above: Performed By: #### A DIFF, TSHR, BMP, GFR, ANEU, CBC, PBNP #### [address] [address] Glucose [Mass/Vol] 87 mg/dL Normal 70-105 [facility] Comment on above: Performed By: #### A DIFF, TSHR, BMP, GFR, ANEU, CBC, PBNP #### [address] [address] Potassium [Moles/Vol] 4.4 mmol/L Normal 3.5-5.1 [facility] Comment on above: Performed By: #### A DIFF, TSHR, BMP, GFR, ANEU, CBC, PBNP #### [address] [address] Sodium [Moles/Vol] 144 mmol/L Normal 136-145 [facility] Comment on above: Performed By: #### A DIFF, TSHR, BMP, GFR, ANEU, CBC, PBNP #### [address] [address] Urea nitrogen [Mass/Vol] 16 mg/dL Normal 7-18 [facility] Comment on above: Performed By: #### A DIFF, TSHR, BMP, GFR, ANEU, CBC, PBNP #### [address] [address] CBCon 10-11-2024 Erythrocyte distribution width (RBC) [Ratio] 12.9 % Normal 11.5-15.5 [facility] Comment on above: Performed By: #### A DIFF, TSHR, BMP, GFR, ANEU, CBC, PBNP #### [address] [address] Hematocrit (Bld) [Volume fraction] 37.4 % Normal 34.0-46.0 [facility] Comment on above: Performed By: #### A DIFF, TSHR, BMP, GFR, ANEU, CBC, PBNP #### [address] [address] Hgb 12.7 G/dL Normal 12.0-16.0 [facility] Comment on above: Performed By: #### A DIFF, TSHR, BMP, GFR, ANEU, CBC, PBNP #### [address] [address] MCH (RBC) [Entitic mass] 32.5 pg Normal 27.0-33.0 [facility] Comment on above: Performed By: #### A DIFF, TSHR, BMP, GFR, ANEU, CBC, PBNP #### [address] [address] MCHC 33.9 G/dL Normal 32.0-36.0 [facility] Comment on above: Performed By: #### A DIFF, TSHR, BMP, GFR, ANEU, CBC, PBNP #### [address] [address] MCV (RBC) [Entitic vol] 95.9 fL Normal 80.0-99.0 [facility] Comment on above: Performed By: #### A DIFF, TSHR, BMP, GFR, ANEU, CBC, PBNP #### [address] [address] Platelet 182 10 3/mcL Normal 150-450 [facility] Comment on above: Performed By: #### A DIFF, TSHR, BMP, GFR, ANEU, CBC, PBNP #### [id number] [place], [place] [address] Platelet mean volume (Bld) [Entitic vol] 10.3 fL Normal 6.6-10.5 [facility] Comment on above: Performed By: #### A DIFF, TSHR, BMP, GFR, ANEU, CBC, PBNP #### [id number] [place] [address] RBC 3.90 10 6/mcL Low 4.10-5.30 [facility] Comment on above: Performed By: #### A DIFF, TSHR, BMP, GFR, ANEU, CBC, PBNP #### [id number] [place] [address] WBC 7.2 10 3/mcL Normal 4.5-10.8 [facility] Comment on above: Performed By: #### A DIFF, TSHR, BMP, GFR, ANEU, CBC, PBNP #### [place] [address] LABORATORYOrdered By: SYSTEM SYSTEM on 10-11-2024 Basophils [...] B (Bld) [Mass/Vol] 1323 pg/mL High 0-125 [facility] Comment on above: Result Comment: NT-p roBNP results of less than 300 pg/mL effectively rules out acute congestive heart failure with 99% negative predictive value. Performed By: #### A DIFF, TSHR, BMP, GFR, ANEU, CBC, PBNP #### [address] [address] SCRN MAMM (CAD)W/ANTHONY BILATo n 10-11-2024 SCRN MAMM (CAD)W/ANTHONY BILAT Normal [facility] TSHRon 10-11-2024 TSH Qn 3.61 m[IU]/L Normal 0.36-3.74 [facility] Comment on above: Performed By: #### A DIFF, TSHR, BMP, GFR, ANEU, CBC, PBNP #### [address] [address] HFPon 09-06-2024 Bili Indirect 0.5 mg/dL Normal [facility] Comment on above: Performed By: #### G FR, BMP #### [address] [address] [address] Albumin Level 4.2 G/dL Normal 3.5-5.0 [facility] Comment on above: Performed By: #### G FR, BMP #### [address] [address] Albumin/Globulin [Mass ratio] 1.5 {ratio} Normal 1.1-2.5 [facility] Comment on above: Performed By: #### G FR, BMP #### [address] [address] ALP [Catalytic activity/Vol] 93 U/L Normal 40-135 [facility] Comment on above: Performed By: #### G , BMP #### [place] [address] ALT [Catalytic activity/Vol] 24 U/L Normal 14-59 [facility] Comment on above: Performed By: #### G , BMP #### [place] [id number] AST [Catalytic activity/Vol] 15 U/L Normal 10-40 [facility] Comment on above: Performed By: #### G , BMP #### [place] [id number] Bili Direct 0.1 mg/dL Normal 0.0-0.2 [facility] Comment on above: Result Comment: Use of this assay is not recommended for patients undergoing treatment with eltrombopag due to the potential for falsely elevated results. Performed By: #### Armando MERCADO, BMP #### [place] [address] Bili Total 0.6 mg/dL Normal 0.2-1.0 [facility] Comment on above: Result Comment: Use of this assay is not recommended for patients undergoing treatment with eltrombopag due to the potential for falsely elevated results. Performed By: #### Armando MERCADO, BMP #### [place] [id number] Globulin 2.8 G/dL Normal [facility] Comment on above: Performed By: #### Armando MERCADO, BMP #### [place] [id number] Total Protein 7.0 G/dL Normal 6.4-8.2 [facility] Comment on above: Performed By: #### Armando MERCADO, BMP #### [place] [id number] LABORATORYOrdered By: SYSTEM SYSTEM on 09-06-2024 Albumin [...] Neurology Visit Reporton Neurology Visit Report Normal [facility] Cardiology Visit Reporton Cardiology Visit Report Normal [facility] Basic Metabolic Profile (BMP )on 08-05-2024 BUN Normal 7-18 [facility] Comment on above: Result Comment: Canc elled via OM: Order cancelled - Patient discharged Performed By: #### L 500.2500, L100.0100 ####[facility] [address] [place], [address] BUN/CRE Normal 10-20 [facility] Comment on above: Result Comment: Canc elled via OM: Order cancelled - Patient discharged Performed By: #### L 500.2500, L100.0100 ####[facility] [address] [place], [address] CA,Total Normal 8.5-10.1 [facility] Comment on above: Result Comment: Canc elled via OM: Order cancelled - Patient discharged Performed By: #### L 500.2500, L100.0100 ####[facility] [address] [place], [address] CL Normal 98-107 [facility] Comment on above: Result Comment: Canc elled via OM: Order cancelled - Patient discharged Performed By: #### L 500.2500, L100.0100 ####[facility] [address] [place], [address] CO2 Normal 21.0-32.0 [facility] Comment on above: Result Comment: Canc elled via OM: Order cancelled - Patient discharged Performed By: #### L 500.2500, L100.0100 ####[facility] [address] [place], [address] CREAT,SERUM Normal 0.55-1.02 [facility] Comment on above: Result Comment: Canc elled via OM: Order cancelled - Patient discharged Performed By: #### L 500.2500, L100.0100 ####[facility] [address] [place], [address] EST GFR Normal >60 [facility] Comment on above: Result Comment: Canc elled via OM: Order cancelled - Patient discharged Performed By: #### L 500.2500, L100.0100 ####[facility] [address] [place], [address] EST GFR - AA Normal >60 [facility] Comment on above: Result Comment: Canc elled via OM: Order cancelled - Patient discharged Performed By: #### L 500.2500, L100.0100 ####[facility] [address] [place], [address] GAP Normal 5-15 [facility] Comment on above: Result Comment: Canc elled via OM: Order cancelled - Patient discharged Performed By: #### L 500.2500, L100.0100 ####[facility] [address] [place], [address] GLU Normal 74-106 [facility] Comment on above: Result Comment: Canc elled via OM: Order cancelled - Patient discharged Performed By: #### L 500.2500, L100.0100 ####[facility] [address] [place], [address] Potassium Normal 3.5-5.1 [facility] Comment on above: Result Comment: Canc elled via OM: Order cancelled - Patient discharged Performed By: #### L 500.2500, L100.0100 ####[facility] [address] [place], [address] Basic Metabolic Profile (BMP) Normal 136-145 [facility] Comment on above: Result Comment: Canc elled via OM: Order cancelled - Patient discharged Performed By: #### L 500.2500, L100.0100 ####[facility] [address] [place], [address] CBC W/Diff, Automatedon 07-09 Absolute Neut Normal 2.0-7.7 [facility] Comment on above: Result Comment: Canc elled via OM: Order cancelled - Patient discharged Performed By: #### L 500.2500, L100.0100 ####[facility] [address] [place], [address] HCT Normal 37-47 [facility] Comment on above: Result Comment: Canc elled via OM: Order cancelled - Patient discharged Performed By: #### L 500.2500, L100.0100 ####[facility] [address] [place], [address] HGB Normal 12.0-15.0 [facility] Comment on above: Result Comment: Canc elled via OM: Order cancelled - Patient discharged Performed By: #### L 500.2500, L100.0100 ####[facility] [address] [place], [address] MCH Normal 27.0-32.0 [facility] Comment on above: Result Comment: Canc elled via OM: Order cancelled - Patient discharged Performed By: #### L 500.2500, L100.0100 ####[facility] [address] [place], [address] MCHC Normal 32-36 [facility] Comment on above: Result Comment: Canc elled via OM: Order cancelled - Patient discharged Performed By: #### L 500.2500, L100.0100 ####[facility] [address] [place], [address] MCV Normal 81-99 [facility] Comment on above: Result Comment: Canc elled via OM: Order cancelled - Patient discharged Performed By: #### L 500.2500, L100.0100 ####[facility] [address] [place], [address] NEUT% Normal 47-70 [facility] Comment on above: Result Comment: Canc elled via OM: Order cancelled - Patient discharged Performed By: #### L 500.2500, L100.0100 ####[facility] [address] [place], [address] PLT Normal 150-450 [facility] Comment on above: Result Comment: Canc elled via OM: Order cancelled - Patient discharged Performed By: #### L 500.2500, L100.0100 ####[facility] [address] [place], [address] RBC Normal 4.2-5.4 [facility] Comment on above: Result Comment: Canc elled via OM: Order cancelled - Patient discharged Performed By: #### L 500.2500, L100.0100 ####[facility] [address] [place], [address] RDW CV Normal 11.6-14.6 [facility] Comment on above: Result Comment: Canc elled via OM: Order cancelled - Patient discharged Performed By: #### L 500.2500, L100.0100 ####[facility] [address] [place], [address] RDW SD Normal 35.1-43.9 [facility] Comment on above: Result Comment: Canc elled via OM: Order cancelled - Patient discharged Performed By: #### L 500.2500, L100.0100 ####[facility] [address] [place], [address] WBC Normal 4.4-11.0 [facility] Comment on above: Result Comment: Canc elled via OM: Order cancelled - Patient discharged Performed By: #### L 500.2500, L100.0100 ####[facility] [address] [place], [address] Basic Metabolic Profile (BMP )on 08-04-2024 BUN Normal 7-18 [facility] Comment on above: Result Comment: Canc elled via OM: Order cancelled - Patient discharged Performed By: #### L 500.2500, L100.0100 ####[facility] [address] [place], [address] BUN/CRE Normal 10-20 [facility] Comment on above: Result Comment: Canc elled via OM: Order cancelled - Patient discharged Performed By: #### L 500.2500, L100.0100 ####[facility] [address] [place], [address] CA,Total Normal 8.5-10.1 [facility] Comment on above: Result Comment: Canc elled via OM: Order cancelled - Patient discharged Performed By: #### L 500.2500, L100.0100 ####[facility] [address] [place], [address] CL Normal 98-107 [facility] Comment on above: Result Comment: Canc elled via OM: Order cancelled - Patient discharged Performed By: #### L 500.2500, L100.0100 ####[facility] [address] [place], [address] CO2 Normal 21.0-32.0 [facility] Comment on above: Result Comment: Canc elled via OM: Order cancelled - Patient discharged Performed By: #### L 500.2500, L100.0100 ####[facility] [address] [place], [address] CREAT,SERUM Normal 0.55-1.02 [facility] Comment on above: Result Comment: Canc elled via OM: Order cancelled - Patient discharged Performed By: #### L 500.2500, L100.0100 ####[facility] [address] [place], [address] EST GFR Normal >60 [facility] Comment on above: Result Comment: Canc elled via OM: Order cancelled - Patient discharged Performed By: #### L 500.2500, L100.0100 ####[facility] [address] [place], [address] EST GFR - AA Normal >60 [facility] Comment on above: Result Comment: Canc elled via OM: Order cancelled - Patient discharged Performed By: #### L 500.2500, L100.0100 ####[facility] [address] [place], [address] GAP Normal 5-15 [facility] Comment on above: Result Comment: Canc elled via OM: Order cancelled - Patient discharged Performed By: #### L 500.2500, L100.0100 ####[facility] [address] [place], [address] GLU Normal 74-106 [facility] Comment on above: Result Comment: Canc elled via OM: Order cancelled - Patient discharged Performed By: #### L 500.2500, L100.0100 ####[facility] [address] [place], [address] Potassium Normal 3.5-5.1 [facility] Comment on above: Result Comment: Canc elled via OM: Order cancelled - Patient discharged Performed By: #### L 500.2500, L100.0100 ####[facility] [address] [place], [address] Basic Metabolic Profile (BMP) Normal 136-145 [facility] Comment on above: Result Comment: Canc elled via OM: Order cancelled - Patient discharged Performed By: #### L 500.2500, L100.0100 ####[facility] [address] [place], [address] CBC W/Diff, Automatedon 07-09 Absolute Neut Normal 2.0-7.7 [facility] Comment on above: Result Comment: Canc elled via OM: Order cancelled - Patient discharged Performed By: #### L 500.2500, L100.0100 ####[facility] [address] [place], [address] HCT Normal 37-47 [facility] Comment on above: Result Comment: Canc elled via OM: Order cancelled - Patient discharged Performed By: #### L 500.2500, L100.0100 ####[facility] [address] [place], [address] HGB Normal 12.0-15.0 [facility] Comment on above: Result Comment: Canc elled via OM: Order cancelled - Patient discharged Performed By: #### L 500.2500, L100.0100 ####[facility] [address] [place], [address] MCH Normal 27.0-32.0 [facility] Comment on above: Result Comment: Canc elled via OM: Order cancelled - Patient discharged Performed By: #### L 500.2500, L100.0100 ####[facility] [address] [place], [address] MCHC Normal 32-36 [facility] Comment on above: Result Comment: Canc elled via OM: Order cancelled - Patient discharged Performed By: #### L 500.2500, L100.0100 ####[facility] [address] [place], [address] MCV Normal 81-99 [facility] Comment on above: Result Comment: Canc elled via OM: Order cancelled - Patient discharged Performed By: #### L 500.2500, L100.0100 ####[facility] [address] [place], [address] NEUT% Normal 47-70 [facility] Comment on above: Result Comment: Canc elled via OM: Order cancelled - Patient discharged Performed By: #### L 500.2500, L100.0100 ####[facility] [address] [place], [address] PLT Normal 150-450 [facility] Comment on above: Result Comment: Canc elled via OM: Order cancelled - Patient discharged Performed By: #### L 500.2500, L100.0100 ####[facility] [address] [place], [address] RBC Normal 4.2-5.4 [facility] Comment on above: Result Comment: Canc elled via OM: Order cancelled - Patient discharged Performed By: #### L 500.2500, L100.0100 ####[facility] [address] [place], [address] RDW CV Normal 11.6-14.6 [facility] Comment on above: Result Comment: Canc elled via OM: Order cancelled - Patient discharged Performed By: #### L 500.2500, L100.0100 ####[facility] [address] [place], [address] RDW SD Normal 35.1-43.9 [facility] Comment on above: Result Comment: Canc elled via OM: Order cancelled - Patient discharged Performed By: #### L 500.2500, L100.0100 ####[facility] [address] [place], [address] WBC Normal 4.4-11.0 [facility] Comment on above: Result Comment: Canc elled via OM: Order cancelled - Patient discharged Performed By: #### L 500.2500, L100.0100 ####[facility] [address] [place], [address] Basic Metabolic Profile (BMP )on 08-03-2024 BUN Normal 7-18 [facility] Comment on above: Result Comment: Canc elled via OM: Order cancelled - Patient discharged Performed By: #### L 500.2500, L100.0100 ####[facility] [address] [place], [address] BUN/CRE Normal 10-20 [facility] Comment on above: Result Comment: Canc elled via OM: Order cancelled - Patient discharged Performed By: #### L 500.2500, L100.0100 ####[facility] [address] [place], [address] CA,Total Normal 8.5-10.1 [facility] Comment on above: Result Comment: Canc elled via OM: Order cancelled - Patient discharged Performed By: #### L 500.2500, L100.0100 ####[facility] [address] [place], [address] CL Normal 98-107 [facility] Comment on above: Result Comment: Canc elled via OM: Order cancelled - Patient discharged Performed By: #### L 500.2500, L100.0100 ####[facility] [address] [place], [address] CO2 Normal 21.0-32.0 [facility] Comment on above: Result Comment: Canc elled via OM: Order cancelled - Patient discharged Performed By: #### L 500.2500, L100.0100 ####[facility] [address] [place], [address] CREAT,SERUM Normal 0.55-1.02 [facility] Comment on above: Result Comment: Canc elled via OM: Order cancelled - Patient discharged Performed By: #### L 500.2500, L100.0100 ####[facility] [address] [place], [address] EST GFR Normal >60 [facility] Comment on above: Result Comment: Canc elled via OM: Order cancelled - Patient discharged Performed By: #### L 500.2500, L100.0100 ####[facility] [address] [place], [address] EST GFR - AA Normal >60 [facility] Comment on above: Result Comment: Canc elled via OM: Order cancelled - Patient discharged Performed By: #### L 500.2500, L100.0100 ####[facility] [address] [place], [address] GAP Normal 5-15 [facility] Comment on above: Result Comment: Canc elled via OM: Order cancelled - Patient discharged Performed By: #### L 500.2500, L100.0100 ####[facility] [address] [place], [address] GLU Normal 74-106 [facility] Comment on above: Result Comment: Canc elled via OM: Order cancelled - Patient discharged Performed By: #### L 500.2500, L100.0100 ####[facility] [address] [place], [address] Potassium Normal 3.5-5.1 [facility] Comment on above: Result Comment: Canc elled via OM: Order cancelled - Patient discharged Performed By: #### L 500.2500, L100.0100 ####[facility] [address] [place], [address] Basic Metabolic Profile (BMP) Normal 136-145 [facility] Comment on above: Result Comment: Canc elled via OM: Order cancelled - Patient discharged Performed By: #### L 500.2500, L100.0100 ####[facility] [address] [place], [address] CBC W/Diff, Automatedon - Absolute Neut Normal 2.0-7.7 [facility] Comment on above: Result Comment: Canc elled via OM: Order cancelled - Patient discharged Performed By: #### L 500.2500, L100.0100 ####[facility] [address] [place], [address] HCT Normal 37-47 [facility] Comment on above: Result Comment: Canc elled via OM: Order cancelled - Patient discharged Performed By: #### L 500.2500, L100.0100 ####[facility] [address] [place], [address] HGB Normal 12.0-15.0 [facility] Comment on above: Result Comment: Canc elled via OM: Order cancelled - Patient discharged Performed By: #### L 500.2500, L100.0100 ####[facility] [address] [place], [address] MCH Normal 27.0-32.0 [facility] Comment on above: Result Comment: Canc elled via OM: Order cancelled - Patient discharged Performed By: #### L 500.2500, L100.0100 ####[facility] [address] [place], [address] MCHC Normal 32-36 [facility] Comment on above: Result Comment: Canc elled via OM: Order cancelled - Patient discharged Performed By: #### L 500.2500, L100.0100 ####[facility] [address] [place], [address] MCV Normal 81-99 [facility] Comment on above: Result Comment: Canc elled via OM: Order cancelled - Patient discharged Performed By: #### L 500.2500, L100.0100 ####[facility] [address] [place], [address] NEUT% Normal 47-70 [facility] Comment on above: Result Comment: Canc elled via OM: Order cancelled - Patient discharged Performed By: #### L 500.2500, L100.0100 ####[facility] [address] [place], [address] PLT Normal 150-450 [facility] Comment on above: Result Comment: Canc elled via OM: Order cancelled - Patient discharged Performed By: #### L 500.2500, L100.0100 ####[facility] [address] [place], [address] RBC Normal 4.2-5.4 [facility] Comment on above: Result Comment: Canc elled via OM: Order cancelled - Patient discharged Performed By: #### L 500.2500, L100.0100 ####[facility] [address] [place], [address] RDW CV Normal 11.6-14.6 [facility] Comment on above: Result Comment: Canc elled via OM: Order cancelled - Patient discharged Performed By: #### L 500.2500, L100.0100 ####[facility] [address] [place], [address] RDW SD Normal 35.1-43.9 [facility] Comment on above: Result Comment: Canc elled via OM: Order cancelled - Patient discharged Performed By: #### L 500.2500, L100.0100 ####[facility] [address] [place], [address] WBC Normal 4.4-11.0 [facility] Comment on above: Result Comment: Canc elled via OM: Order cancelled - Patient discharged Performed By: #### L 500.2500, L100.0100 ####[facility] [address] [place], [address] Basic Metabolic Profile (BMP )on 08-02-2024 BUN Normal 7-18 [facility] Comment on above: Result Comment: Canc elled via OM: Order cancelled - Patient discharged Performed By: #### L 500.2500, L100.0100 ####[facility] [address] [place], [address] BUN/CRE Normal 10-20 [facility] Comment on above: Result Comment: Canc elled via OM: Order cancelled - Patient discharged Performed By: #### L 500.2500, L100.0100 ####[facility] [address] [place], [address] CA,Total Normal 8.5-10.1 [facility] Comment on above: Result Comment: Canc elled via OM: Order cancelled - Patient discharged Performed By: #### L 500.2500, L100.0100 ####[facility] [address] [place], [address] CL Normal 98-107 [facility] Comment on above: Result Comment: Canc elled via OM: Order cancelled - Patient discharged Performed By: #### L 500.2500, L100.0100 ####[facility] [address] [place], [address] CO2 Normal 21.0-32.0 [facility] Comment on above: Result Comment: Canc elled via OM: Order cancelled - Patient discharged Performed By: #### L 500.2500, L100.0100 ####[facility] [address] [place], [address] CREAT,SERUM Normal 0.55-1.02 [facility] Comment on above: Result Comment: Canc elled via OM: Order cancelled - Patient discharged Performed By: #### L 500.2500, L100.0100 ####[facility] [address] [place], [address] EST GFR Normal >60 [facility] Comment on above: Result Comment: Canc elled via OM: Order cancelled - Patient discharged Performed By: #### L 500.2500, L100.0100 ####[facility] [address] [place], [address] EST GFR - AA Normal >60 [facility] Comment on above: Result Comment: Canc elled via OM: Order cancelled - Patient discharged Performed By: #### L 500.2500, L100.0100 ####[facility] [address] [place], [address] GAP Normal 5-15 [facility] Comment on above: Result Comment: Canc elled via OM: Order cancelled - Patient discharged Performed By: #### L 500.2500, L100.0100 ####[facility] [address] [place], [address] GLU Normal 74-106 [facility] Comment on above: Result Comment: Canc elled via OM: Order cancelled - Patient discharged Performed By: #### L 500.2500, L100.0100 ####[facility] [address] [place], [address] Potassium Normal 3.5-5.1 [facility] Comment on above: Result Comment: Canc elled via OM: Order cancelled - Patient discharged Performed By: #### L 500.2500, L100.0100 ####[facility] [address] [place], [address] Basic Metabolic Profile (BMP) Normal 136-145 [facility] Comment on above: Result Comment: Canc elled via OM: Order cancelled - Patient discharged Performed By: #### L 500.2500, L100.0100 ####[facility] [address] [place], [address] CBC W/Diff, Automatedon - Absolute Neut Normal 2.0-7.7 [facility] Comment on above: Result Comment: Canc elled via OM: Order cancelled - Patient discharged Performed By: #### L 500.2500, L100.0100 ####[facility] [address] [place], [address] HCT Normal 37-47 [facility] Comment on above: Result Comment: Canc elled via OM: Order cancelled - Patient discharged Performed By: #### L 500.2500, L100.0100 ####[facility] [address] [place], [address] HGB Normal 12.0-15.0 [facility] Comment on above: Result Comment: Canc elled via OM: Order cancelled - Patient discharged Performed By: #### L 500.2500, L100.0100 ####[facility] [address] [place], [address] MCH Normal 27.0-32.0 [facility] [facility] Comment on above: Result Comment: Canc elled via OM: Order cancelled - Patient discharged Performed By: #### L 500.2500, L100.0100 ####[facility] [address] [place], [address] MCHC Normal 32-36 [facility] Comment on above: Result Comment: Canc elled via OM: Order cancelled - Patient discharged Performed By: #### L 500.2500, L100.0100 ####[facility] [address] [place], [address] MCV Normal 81-99 [facility] Comment on above: Result Comment: Canc elled via OM: Order cancelled - Patient discharged Performed By: #### L 500.2500, L100.0100 ####[facility] [address] [place], [address] NEUT% Normal 47-70 [facility] Comment on above: Result Comment: Canc elled via OM: Order cancelled - Patient discharged Performed By: #### L 500.2500, L100.0100 ####[facility] [address] [place], [address] PLT Normal 150-450 [facility] Comment on above: Result Comment: Canc elled via OM: Order cancelled - Patient discharged Performed By: #### L 500.2500, L100.0100 ####[facility] [address] [place], [address] RBC Normal 4.2-5.4 [facility] Comment on above: Result Comment: Canc elled via OM: Order cancelled - Patient discharged Performed By: #### L 500.2500, L100.0100 ####[facility] [address] [place], [address] RDW CV Normal 11.6-14.6 [facility] Comment on above: Result Comment: Canc elled via OM: Order cancelled - Patient discharged Performed By: #### L 500.2500, L100.0100 ####[facility] [address] [place], [address] RDW SD Normal 35.1-43.9 [facility] Comment on above: Result Comment: Canc elled via OM: Order cancelled - Patient discharged Performed By: #### L 500.2500, L100.0100 ####[facility] [address] [place], [address] WBC Normal 4.4-11.0 [facility] Comment on above: Result Comment: Canc elled via OM: Order cancelled - Patient discharged Performed By: #### L 500.2500, L100.0100 ####[facility] [address] [place], [address] Basic Metabolic Profile (BMP )on 08-01-2024 BUN Normal 7-18 [facility] Comment on above: Result Comment: Canc elled via OM: Order cancelled - Patient discharged Performed By: #### L 100.0100, L500.2500 ####[facility] [address] [place], [address] BUN/CRE Normal 10-20 [facility] Comment on above: Result Comment: Canc elled via OM: Order cancelled - Patient discharged Performed By: #### L 100.0100, L500.2500 ####[facility] [address] [place], [address] CA,Total Normal 8.5-10.1 [facility] Comment on above: Result Comment: Canc elled via OM: Order cancelled - Patient discharged Performed By: #### L 100.0100, L500.2500 ####[facility] [address] [place], [address] CL Normal 98-107 [facility] Comment on above: Result Comment: Canc elled via OM: Order cancelled - Patient discharged Performed By: #### L 100.0100, L500.2500 ####[facility] [address] [place], [address] CO2 Normal 21.0-32.0 [facility] Comment on above: Result Comment: Canc elled via OM: Order cancelled - Patient discharged Performed By: #### L 100.0100, L500.2500 ####[facility] [address] [place], [address] CREAT,SERUM Normal 0.55-1.02 [facility] Comment on above: Result Comment: Canc elled via OM: Order cancelled - Patient discharged Performed By: #### L 100.0100, L500.2500 ####[facility] [address] [place], [address] EST GFR Normal >60 [facility] Comment on above: Result Comment: Canc elled via OM: Order cancelled - Patient discharged Performed By: #### L 100.0100, L500.2500 ####[facility] [address] [place], [address] EST GFR - AA Normal >60 [facility] Comment on above: Result Comment: Canc elled via OM: Order cancelled - Patient discharged Performed By: #### L 100.0100, L500.2500 ####[facility] [address] [place], [address] GAP Normal 5-15 [facility] Comment on above: Result Comment: Canc elled via OM: Order cancelled - Patient discharged Performed By: #### L 100.0100, L500.2500 ####[facility] [address] [place], [address] GLU Normal 74-106 [facility] Comment on above: Result Comment: Canc elled via OM: Order cancelled - Patient discharged Performed By: #### L 100.0100, L500.2500 ####[facility] [address] [place], [address] Potassium Normal 3.5-5.1 [facility] Comment on above: Result Comment: Canc elled via OM: Order cancelled - Patient discharged Performed By: #### L 100.0100, L500.2500 ####[facility] [address] [place], [address] Basic Metabolic Profile (BMP) Normal 136-145 [facility] Comment on above: Result Comment: Canc elled via OM: Order cancelled - Patient discharged Performed By: #### L 100.0100, L500.2500 ####[facility] [address] [place], [address] CBC W/Diff, Automatedon 09-2 Absolute Neut Normal 2.0-7.7 [facility] Comment on above: Result Comment: Canc elled via OM: Order cancelled - Patient discharged Performed By: #### L 100.0100, L500.2500 ####[facility] [address] [place], [address] HCT Normal 37-47 [facility] Comment on above: Result Comment: Canc elled via OM: Order cancelled - Patient discharged Performed By: #### L 100.0100, L500.2500 ####[facility] [address] [place], [address] HGB Normal 12.0-15.0 [facility] Comment on above: Result Comment: Canc elled via OM: Order cancelled - Patient discharged Performed By: #### L 100.0100, L500.2500 ####[facility] [address] [place], [address] MCH Normal 27.0-32.0 [facility] Comment on above: Result Comment: Canc elled via OM: Order cancelled - Patient discharged Performed By: #### L 100.0100, L500.2500 ####[facility] [address] [place], [address] MCHC Normal 32-36 [facility] Comment on above: Result Comment: Canc elled via OM: Order cancelled - Patient discharged Performed By: #### L 100.0100, L500.2500 ####[facility] [address] [place], [address] MCV Normal 81-99 [facility] Comment on above: Result Comment: Canc elled via OM: Order cancelled - Patient discharged Performed By: #### L 100.0100, L500.2500 ####[facility] [address] [place], [address] NEUT% Normal 47-70 [facility] Comment on above: Result Comment: Canc elled via OM: Order cancelled - Patient discharged Performed By: #### L 100.0100, L500.2500 ####[facility] [address] [place], [address] PLT Normal 150-450 [facility] Comment on above: Result Comment: Canc elled via OM: Order cancelled - Patient discharged Performed By: #### L 100.0100, L500.2500 ####[facility] [address] [place], [address] RBC Normal 4.2-5.4 [facility] Comment on above: Result Comment: Canc elled via OM: Order cancelled - Patient discharged Performed By: #### L 100.0100, L500.2500 ####[facility] [address] [place], [address] RDW CV Normal 11.6-14.6 [facility] Comment on above: Result Comment: Canc elled via OM: Order cancelled - Patient discharged Performed By: #### L 100.0100, L500.2500 ####[facility] [address] [place], [address] RDW SD Normal 35.1-43.9 [facility] Comment on above: Result Comment: Canc elled via OM: Order cancelled - Patient discharged Performed By: #### L 100.0100, L500.2500 ####[facility] [address] [place], [address] WBC Normal 4.4-11.0 [facility] Comment on above: Result Comment: Canc elled via OM: Order cancelled - Patient discharged Performed By: #### L 100.0100, L500.2500 ####[facility] [address] [place], [address] Basic Metabolic Profile (BMP )on 07-31-2024 BUN Normal 7-18 [facility] Comment on above: Result Comment: Canc elled via OM: Order cancelled - Patient discharged Performed By: #### L 100.0100, L500.2500 ####[facility] [address] [place], [address] BUN/CRE Normal 10-20 [facility] Comment on above: Result Comment: Canc elled via OM: Order cancelled - Patient discharged Performed By: #### L 100.0100, L500.2500 ####[facility] [address] [place], [address] CA,Total Normal 8.5-10.1 [facility] Comment on above: Result Comment: Canc elled via OM: Order cancelled - Patient discharged Performed By: #### L 100.0100, L500.2500 ####[facility] [address] [place], [address] CL Normal 98-107 [facility] Comment on above: Result Comment: Canc elled via OM: Order cancelled - Patient discharged Performed By: #### L 100.0100, L500.2500 ####[facility] [address] [place], [address] CO2 Normal 21.0-32.0 [facility] Comment on above: Result Comment: Canc elled via OM: Order cancelled - Patient discharged Performed By: #### L 100.0100, L500.2500 ####[facility] [address] [place], [address] CREAT,SERUM Normal 0.55-1.02 [facility] Comment on above: Result Comment: Canc elled via OM: Order cancelled - Patient discharged Performed By: #### L 100.0100, L500.2500 ####[facility] [address] [place], [address] EST GFR Normal >60 [facility] Comment on above: Result Comment: Canc elled via OM: Order cancelled - Patient discharged Performed By: #### L 100.0100, L500.2500 ####[facility] [address] [place], [address] EST GFR - AA Normal >60 [facility] Comment on above: Result Comment: Canc elled via OM: Order cancelled - Patient discharged Performed By: #### L 100.0100, L500.2500 ####[facility] [address] [place], [address] GAP Normal 5-15 [facility] Comment on above: Result Comment: Canc elled via OM: Order cancelled - Patient discharged Performed By: #### L 100.0100, L500.2500 ####[facility] [address] [place], [address] GLU Normal 74-106 [facility] Comment on above: Result Comment: Canc elled via OM: Order cancelled - Patient discharged Performed By: #### L 100.0100, L500.2500 ####[facility] [address] [place], [address] Potassium Normal 3.5-5.1 [facility] Comment on above: Result Comment: Canc elled via OM: Order cancelled - Patient discharged Performed By: #### L 100.0100, L500.2500 ####[facility] [address] [place], [address] Basic Metabolic Profile (BMP) Normal 136-145 [facility] Comment on above: Result Comment: Canc elled via OM: Order cancelled - Patient discharged Performed By: #### L 100.0100, L500.2500 ####[facility] [address] [place], [address] CBC W/Diff, Automatedon 09-2 Absolute Neut Normal 2.0-7.7 [facility] Comment on above: Result Comment: Canc elled via OM: Order cancelled - Patient discharged Performed By: #### L 100.0100, L500.2500 ####[facility] [address] [place], [address] HCT Normal 37-47 [facility] Comment on above: Result Comment: Canc elled via OM: Order cancelled - Patient discharged Performed By: #### L 100.0100, L500.2500 ####[facility] [address] [place], [address] HGB Normal 12.0-15.0 [facility] Comment on above: Result Comment: Canc elled via OM: Order cancelled - Patient discharged Performed By: #### L 100.0100, L500.2500 ####[facility] [address] [place], [address] MCH Normal 27.0-32.0 [facility] Comment on above: Result Comment: Canc elled via OM: Order cancelled - Patient discharged Performed By: #### L 100.0100, L500.2500 ####[facility] [address] [place], [address] MCHC Normal 32-36 [facility] Comment on above: Result Comment: Canc elled via OM: Order cancelled - Patient discharged Performed By: #### L 100.0100, L500.2500 ####[facility] [address] [place], [address] MCV Normal 81-99 [facility] Comment on above: Result Comment: Canc elled via OM: Order cancelled - Patient discharged Performed By: #### L 100.0100, L500.2500 ####[facility] [address] [place], [address] NEUT% Normal 47-70 [facility] Comment on above: Result Comment: Canc elled via OM: Order cancelled - Patient discharged Performed By: #### L 100.0100, L500.2500 ####[facility] [address] [place], [address] PLT Normal 150-450 [facility] Comment on above: Result Comment: Canc elled via OM: Order cancelled - Patient discharged Performed By: #### L 100.0100, L500.2500 ####[facility] [address] [place], [address] RBC Normal 4.2-5.4 [facility] Comment on above: Result Comment: Canc elled via OM: Order cancelled - Patient discharged Performed By: #### L 100.0100, L500.2500 ####[facility] [address] [place], [address] RDW CV Normal 11.6-14.6 [facility] Comment on above: Result Comment: Canc elled via OM: Order cancelled - Patient discharged Performed By: #### L 100.0100, L500.2500 ####[facility] [address] [place], [address] RDW SD Normal 35.1-43.9 [facility] Comment on above: Result Comment: Canc elled via OM: Order cancelled - Patient discharged Performed By: #### L 100.0100, L500.2500 ####[facility] [address] [place], [address] WBC Normal 4.4-11.0 [facility] Comment on above: Result Comment: Canc elled via OM: Order cancelled - Patient discharged Performed By: #### L 100.0100, L500.2500 ####[facility] [address] [place], [address] Basic Metabolic Profile (BMP )on 07-30-2024 BUN Normal 7-18 [facility] Comment on above: Result Comment: Canc elled via OM: Order cancelled - Patient discharged Performed By: #### L 500.2500, L100.0100 ####[facility] [address] [place], [address] BUN/CRE Normal 10-20 [facility] Comment on above: Result Comment: Canc elled via OM: Order cancelled - Patient discharged Performed By: #### L 500.2500, L100.0100 ####[facility] [address] [place], [address] CA,Total Normal 8.5-10.1 [facility] Comment on above: Result Comment: Canc elled via OM: Order cancelled - Patient discharged Performed By: #### L 500.2500, L100.0100 ####[facility] [address] [place], [address] CL Normal 98-107 [facility] Comment on above: Result Comment: Canc elled via OM: Order cancelled - Patient discharged Performed By: #### L 500.2500, L100.0100 ####[facility] [address] [place], [address] CO2 Normal 21.0-32.0 [facility] Comment on above: Result Comment: Canc elled via OM: Order cancelled - Patient discharged Performed By: #### L 500.2500, L100.0100 ####[facility] [address] [place], [address] CREAT,SERUM Normal 0.55-1.02 [facility] Comment on above: Result Comment: Canc elled via OM: Order cancelled - Patient discharged Performed By: #### L 500.2500, L100.0100 ####[facility] [address] [place], [address] EST GFR Normal >60 [facility] Comment on above: Result Comment: Canc elled via OM: Order cancelled - Patient discharged Performed By: #### L 500.2500, L100.0100 ####[facility] [address] [place], [address] EST GFR - AA Normal >60 [facility] Comment on above: Result Comment: Canc elled via OM: Order cancelled - Patient discharged Performed By: #### L 500.2500, L100.0100 ####[facility] [address] [place], [address] GAP Normal 5-15 [facility] Comment on above: Result Comment: Canc elled via OM: Order cancelled - Patient discharged Performed By: #### L 500.2500, L100.0100 ####[facility] [address] [place], [address] GLU Normal 74-106 [facility] Comment on above: Result Comment: Canc elled via OM: Order cancelled - Patient discharged Performed By: #### L 500.2500, L100.0100 ####[facility] [address] [place], [address] Potassium Normal 3.5-5.1 [facility] Comment on above: Result Comment: Canc elled via OM: Order cancelled - Patient discharged Performed By: #### L 500.2500, L100.0100 ####[facility] [address] [place], [address] Basic Metabolic Profile (BMP) Normal 136-145 [facility] Comment on above: Result Comment: Canc elled via OM: Order cancelled - Patient discharged Performed By: #### L 500.2500, L100.0100 ####[facility] [address] [place], [address] CBC W/Diff, Automatedon 09-2 Absolute Neut Normal 2.0-7.7 [facility] Comment on above: Result Comment: Canc elled via OM: Order cancelled - Patient discharged Performed By: #### L 500.2500, L100.0100 ####[facility] [address] [place], [address] HCT Normal 37-47 [facility] Comment on above: Result Comment: Canc elled via OM: Order cancelled - Patient discharged Performed By: #### L 500.2500, L100.0100 ####[facility] [address] [place], [address] HGB Normal 12.0-15.0 [facility] Comment on above: Result Comment: Canc elled via OM: Order cancelled - Patient discharged Performed By: #### L 500.2500, L100.0100 ####[facility] [address] [place], [address] MCH Normal 27.0-32.0 [facility] Comment on above: Result Comment: Canc elled via OM: Order cancelled - Patient discharged Performed By: #### L 500.2500, L100.0100 ####[facility] [address] [place], [address] MCHC Normal 32-36 [facility] Comment on above: Result Comment: Canc elled via OM: Order cancelled - Patient discharged Performed By: #### L 500.2500, L100.0100 ####[facility] [address] [place], [address] MCV Normal 81-99 [facility] Comment on above: Result Comment: Canc elled via OM: Order cancelled - Patient discharged Performed By: #### L 500.2500, L100.0100 ####[facility] [address] [place], [address] NEUT% Normal 47-70 [facility] Comment on above: Result Comment: Canc elled via OM: Order cancelled - Patient discharged Performed By: #### L 500.2500, L100.0100 ####[facility] [address] [place], [address] PLT Normal 150-450 [facility] Comment on above: Result Comment: Canc elled via OM: Order cancelled - Patient discharged Performed By: #### L 500.2500, L100.0100 ####[facility] [address] [place], [address] RBC Normal 4.2-5.4 [facility] Comment on above: Result Comment: Canc elled via OM: Order cancelled - Patient discharged Performed By: #### L 500.2500, L100.0100 ####[facility] [address] [place], [address] RDW CV Normal 11.6-14.6 [facility] Comment on above: Result Comment: Canc elled via OM: Order cancelled - Patient discharged Performed By: #### L 500.2500, L100.0100 ####[facility] [address] [place], [address] RDW SD Normal 35.1-43.9 [facility] Comment on above: Result Comment: Canc elled via OM: Order cancelled - Patient discharged Performed By: #### L 500.2500, L100.0100 ####[facility] [address] [place], [address] WBC Normal 4.4-11.0 [facility] Comment on above: Result Comment: Canc elled via OM: Order cancelled - Patient discharged Performed By: #### L 500.2500, L100.0100 ####[facility] [address] [place], [address] Basic Metabolic Profile (BMP )on 07-29-2024 BUN/CRE 13.2 RATIO Normal 10-20 [facility] Comment on above: Performed By: #### L 500.2500, L100.0100 ####[facility] [address] [place], [address] CA,Total 8.8 mg/dL Normal 8.5-10.1 [facility] Comment on above: Performed By: #### L 500.2500, L100.0100 ####[facility] [address] [place], [address] Chloride [Moles/Vol] 109 mmol/L High 98-107 [facility] Comment on above: Performed By: #### L 500.2500, L100.0100 ####[facility] [address] [place], [address] CO2 [Moles/Vol] 26.0 mmol/L Normal 21.0-32.0 [facility] Comment on above: Performed By: #### L 500.2500, L100.0100 ####[facility] [address] [place], [address] Creatinine [Mass/Vol] 0.68 mg/dL Normal 0.55-1.02 [facility] Comment on above: Result Comment: The validity of the calculated GFR GFRAA in patients over70 years has not been determined. Clinical correlation isessential. Performed By: #### L 500.2500, L100.0100 ####[facility] [address] [place], [address] ECRCL 97.65 ml/min Normal [facility] Comment on above: Performed By: #### L 500.2500, L100.0100 ####[facility] [address] [place], [address] EST GFR - AA 113 mL/min Normal >60 [facility] Comment on above: Result Comment: Afri can [place] GFR Calc Performed By: #### L 500.2500, L100.0100 ####[facility] [address] [place], [address] GAP 6 Normal 5-15 [facility] Comment on above: Performed By: #### L 500.2500, L100.0100 ####[facility] [address] [place], [address] GFR/1.73 sq M.predicted among non-blacks MDRD (S/P/Bld) [Vol rate/Area] 94 mL/min/{1.73_m2} Normal >60 [facility] Comment on above: Result Comment: Non- GFR Calc Performed By: #### L 500.2500, L100.0100 ####[facility] [address] [place], [address] Glucose [Mass/Vol] 85 mg/dL Normal 74-106 [facility] Comment on above: Performed By: #### L 500.2500, L100.0100 ####[facility] [address] [place], [address] Potassium [Moles/Vol] 3.5 mmol/L Normal 3.5-5.1 [facility] Comment on above: Performed By: #### L 500.2500, L100.0100 ####[facility] [address] [place], [address] Sodium [Moles/Vol] 141 mmol/L Normal 136-145 [facility] Comment on above: Performed By: #### L 500.2500, L100.0100 ####[facility] [address] [place], [address] Urea nitrogen [Mass/Vol] 9 mg/dL Normal 7-18 [facility] Comment on above: Performed By: #### L 500.2500, L100.0100 ####[facility] [address] [place], [address] Brain without Contraston Brain without Contrast Normal [facility] CBC W/Diff, Automatedon 07-09 Absolute Lymph 2.73 X10 3/uL Normal 0.83-4.51 [facility] Comment on above: Performed By: #### L 500.2500, L100.0100 ####[facility] [address] [place], [address] Absolute Neut 2.3 X10 3/uL Normal 2.0-7.7 [facility] Comment on above: Performed By: #### L 500.2500, L100.0100 ####[facility] [address] [place], [address] Basophils/100 WBC (Bld) 0.7 % Normal 0-1 [facility] Comment on above: Performed By: #### L 500.2500, L100.0100 ####[facility] [address] [place], [address] Eosinophils/100 WBC (Bld) 4.2 % Normal 0-5 [facility] Comment on above: Performed By: #### L 500.2500, L100.0100 ####[facility] [address] [place], [address] Erythrocyte distribution width (RBC) [Ratio] 12.0 % Normal 11.6-14.6 [facility] Comment on above: Performed By: #### L 500.2500, L100.0100 ####[facility] [address] [place], [address] Hematocrit (Bld) [Volume fraction] 37.1 % Normal 37-47 [facility] Comment on above: Performed By: #### L 500.2500, L100.0100 ####[facility] [address] [place], [address] Hemoglobin (Bld) [Mass/Vol] 12.6 g/dL Normal 12.0-15.0 [facility] Comment on above: Performed By: #### L 500.2500, L100.0100 ####[facility] [address] [place], [address] IG% 0.200 Normal 0.0-0.9 [facility] Comment on above: Result Comment: IG% - Immature Granulocytes (promyelocytes, myelocytes andmetamyelocytes) > 1% indicates that a LEFT SHIFT is Present. Performed By: #### L 500.2500, L100.0100 ####[facility] [address] [place], [address] Lymphocytes/100 WBC (Bld) 47.7 % High 19-41 [facility] Comment on above: Performed By: #### L 500.2500, L100.0100 ####[facility] [address] [place], [address] MCH (RBC) [Entitic mass] 31.7 pg Normal 27.0-32.0 [facility] Comment on above: Performed By: #### L 500.2500, L100.0100 ####[facility] [address] [place], [address] MCHC (RBC) [Mass/Vol] 34.0 g/dL Normal 32-36 [facility] Comment on above: Performed By: #### L 500.2500, L100.0100 ####[facility] [address] [place], [address] MCV (RBC) [Entitic vol] 93.2 fL Normal 81-99 [facility] Comment on above: Performed By: #### L 500.2500, L100.0100 ####[facility] [address] [place], [address] Monocytes/100 WBC (Bld) 6.6 % Normal 0-10 [facility] Comment on above: Performed By: #### L 500.2500, L100.0100 ####[facility] [address] [place], [address] Neutrophils/100 WBC (Bld) 40.6 % Low 47-70 [facility] Comment on above: Performed By: #### L 500.2500, L100.0100 ####[facility] [address] [place], [address] Nucleated RBC (Bld) [#/Vol] 0 10*3/uL Normal 0-5 [facility] Comment on above: Performed By: #### L 500.2500, L100.0100 ####[facility] [address] [place], [address] Platelet mean volume (Bld) [Entitic vol] 11.7 fL Normal 6.2-12.0 [facility] Comment on above: Performed By: #### L 500.2500, L100.0100 ####[facility] [address] [place], [address] Platelets (Bld) [#/Vol] 210 10*3/uL Normal 150-450 [facility] Comment on above: Performed By: #### L 500.2500, L100.0100 ####[facility] [address] [place], [address] RBC (Bld) [#/Vol] 3.98 10*6/uL Low 4.2-5.4 [facility] Comment on above: Performed By: #### L 500.2500, L100.0100 ####[facility] [address] [place], [address] RDW SD 41.3 fl Normal 35.1-43.9 [facility] Comment on above: Performed By: #### L 500.2500, L100.0100 ####[facility] [address] [place], [address] WBC (Bld) [#/Vol] 5.7 10*3/uL Normal 4.4-11.0 [facility] Comment on above: Performed By: #### L 500.2500, L100.0100 ####[facility] [address] [place], [address] Discharge Instructionon 07-09 Discharge Instruction Normal [facility] 12 Lead EKGon 07-28-2024 12 Lead EKG Normal [facility] Bilirubin, Directon 07-28-20 24 Bilirubin.direct [Mass/Vol] 0.17 mg/dL Normal 0.00-0.30 [facility] Comment on above: Order Comment: Comme nts: NPO at [place] prior to lipid panel Performed By: #### L 100.0100, L501.2300, L501.9520, L501.4700, L500.4050, L500.4100, L501.5200 ####[facility] [address] [place], [address] CBC W/Diff, Automatedon 07-09 Absolute Lymph 2.55 X10 3/uL Normal 0.83-4.51 [facility] Comment on above: Performed By: #### L 100.0100, L501.2300, L501.9520, L501.4700, L500.4050, L500.4100, L501.5200 ####[facility] [address] [place], [address] Absolute Neut 1.9 X10 3/uL Low 2.0-7.7 [facility] Comment on above: Performed By: #### L 100.0100, L501.2300, L501.9520, L501.4700, L500.4050, L500.4100, L501.5200 ####[facility] [address] [place], [address] Basophils/100 WBC (Bld) 1.0 % Normal 0-1 [facility] Comment on above: Performed By: #### L 100.0100, L501.2300, L501.9520, L501.4700, L500.4050, L500.4100, L501.5200 ####[facility] [address] [place], [address] Eosinophils/100 WBC (Bld) 4.5 % Normal 0-5 [facility] Comment on above: Performed By: #### L 100.0100, L501.2300, L501.9520, L501.4700, L500.4050, L500.4100, L501.5200 ####[facility] [address] [place], [address] Erythrocyte distribution width (RBC) [Ratio] 12.1 % Normal 11.6-14.6 [facility] Comment on above: Performed By: #### L 100.0100, L501.2300, L501.9520, L501.4700, L500.4050, L500.4100, L501.5200 ####[facility] [address] [place], [place], [phone] Hematocrit (Bld) [Volume fraction] 37.6 % Normal 37-47 [facility] Comment on above: Performed By: #### L 100.0100, L501.2300, L501.9520, L501.4700, L500.4050, L500.4100, L501.5200 ####[facility] [address] [place], [address] Hemoglobin (Bld) [Mass/Vol] 12.7 g/dL Normal 12.0-15.0 [facility] Comment on above: Performed By: #### L 100.0100, L501.2300, L501.9520, L501.4700, L500.4050, L500.4100, L501.5200 ####[facility] [address] [place], [address] IG% 0.400 Normal 0.0-0.9 [facility] Comment on above: Result Comment: IG% - Immature Granulocytes (promyelocytes, myelocytes andmetamyelocytes) > 1% indicates that a LEFT SHIFT is Present. Performed By: #### L 100.0100, L501.2300, L501.9520, L501.4700, L500.4050, L500.4100, L501.5200 ####[facility] [address] [place], [address] Lymphocytes/100 WBC (Bld) 50.1 % High 19-41 [facility] Comment on above: Performed By: #### L 100.0100, L501.2300, L501.9520, L501.4700, L500.4050, L500.4100, L501.5200 ####[facility] [address] [place], [address] MCH (RBC) [Entitic mass] 31.7 pg Normal 27.0-32.0 [facility] Comment on above: Performed By: #### L 100.0100, L501.2300, L501.9520, L501.4700, L500.4050, L500.4100, L501.5200 ####[facility] [address] [place], [address] MCHC (RBC) [Mass/Vol] 33.8 g/dL Normal 32-36 [facility] Comment on above: Performed By: #### L 100.0100, L501.2300, L501.9520, L501.4700, L500.4050, L500.4100, L501.5200 ####[facility] [address] [place], [address] MCV (RBC) [Entitic vol] 93.8 fL Normal 81-99 [facility] Comment on above: Performed By: #### L 100.0100, L501.2300, L501.9520, L501.4700, L500.4050, L500.4100, L501.5200 ####[facility] [address] [place], [address] Monocytes/100 WBC (Bld) 6.9 % Normal 0-10 [facility] Comment on above: Performed By: #### L 100.0100, L501.2300, L501.9520, L501.4700, L500.4050, L500.4100, L501.5200 ####[facility] [address] [place], [address] Neutrophils/100 WBC (Bld) 37.1 % Low 47-70 [facility] Comment on above: Performed By: #### L 100.0100, L501.2300, L501.9520, L501.4700, L500.4050, L500.4100, L501.5200 ####[facility] [address] [place], [address] Nucleated RBC (Bld) [#/Vol] 0 10*3/uL Normal 0-5 [facility] Comment on above: Performed By: #### L 100.0100, L501.2300, L501.9520, L501.4700, L500.4050, L500.4100, L501.5200 ####[facility] [address] [place], [address] Platelet mean volume (Bld) [Entitic vol] 11.4 fL Normal 6.2-12.0 [facility] Comment on above: Performed By: #### L 100.0100, L501.2300, L501.9520, L501.4700, L500.4050, L500.4100, L501.5200 ####[facility] [address] [place], [address] Platelets (Bld) [#/Vol] 213 10*3/uL Normal 150-450 [facility] Comment on above: Performed By: #### L 100.0100, L501.2300, L501.9520, L501.4700, L500.4050, L500.4100, L501.5200 ####[facility] [address] [place], [address] RBC (Bld) [#/Vol] 4.01 10*6/uL Low 4.2-5.4 [facility] Comment on above: Performed By: #### L 100.0100, L501.2300, L501.9520, L501.4700, L500.4050, L500.4100, L501.5200 ####[facility] [address] [place], [address] RDW SD 42.0 fl Normal 35.1-43.9 [facility] Comment on above: Performed By: #### L 100.0100, L501.2300, L501.9520, L501.4700, L500.4050, L500.4100, L501.5200 ####[facility] [address] [place], [place], [phone]) WBC (Bld) [#/Vol] 5.1 10*3/uL Normal 4.4-11.0 [facility] Comment on above: Performed By: #### L 100.0100, L501.2300, L501.9520, L501.4700, L500.4050, L500.4100, L501.5200 ####[facility] [address] [place], [address] Comprehensive Metabolic Prof ilon 07-28-2024 Albumin [Mass/Vol] 3.3 g/dL Normal 3.2-5.0 [facility] Comment on above: Order Comment: Comme nts: NPO at [place] prior to lipid panel Performed By: #### L 100.0100, L501.2300, L501.9520, L501.4700, L500.4050, L500.4100, L501.5200 ####[facility] [address] [place], [address] Albumin/Globulin [Mass ratio] 1.2 {ratio} Normal 0.9-2.4 [facility] Comment on above: Order Comment: Comme nts: NPO at [place] prior to lipid panel Performed By: #### L 100.0100, L501.2300, L501.9520, L501.4700, L500.4050, L500.4100, L501.5200 ####[facility] [address] [place], [address] ALK P 68 U/L Normal 45-117 [facility] Comment on above: Order Comment: Comme nts: NPO at [place] prior to lipid panel Performed By: #### L 100.0100, L501.2300, L501.9520, L501.4700, L500.4050, L500.4100, L501.5200 ####[facility] [address] [place], [address] ALT [Catalytic activity/Vol] 12 U/L Low 13-56 [facility] Comment on above: Order Comment: Comme nts: NPO at [place] prior to lipid panel Performed By: #### L 100.0100, L501.2300, L501.9520, L501.4700, L500.4050, L500.4100, L501.5200 ####[facility] [address] [place], [address] AST [Catalytic activity/Vol] 9 U/L Low 15-37 [facility] Comment on above: Order Comment: Comme nts: NPO at [place] prior to lipid panel Performed By: #### L 100.0100, L501.2300, L501.9520, L501.4700, L500.4050, L500.4100, L501.5200 ####[facility] [address] [place], [address] Bilirubin [Mass/Vol] 0.70 mg/dL Normal 0.20-1.00 [facility] Comment on above: Order Comment: Comme nts: NPO at [place] prior to lipid panel Result Comment: For patients on eltrombopag therapy, use of Dimension [place] TBIL is not recommended. Performed By: #### L 100.0100, L501.2300, L501.9520, L501.4700, L500.4050, L500.4100, L501.5200 ####[facility] [address] [place], [address] BUN/CRE 11.7 RATIO Normal 10-20 [facility] Comment on above: Order Comment: Comme nts: NPO at [place] prior to lipid panel Performed By: #### L 100.0100, L501.2300, L501.9520, L501.4700, L500.4050, L500.4100, L501.5200 ####[facility] [address] [place], [address] CA,Total 8.9 mg/dL Normal 8.5-10.1 [facility] Comment on above: Order Comment: Comme nts: NPO at [place] prior to lipid panel Performed By: #### L 100.0100, L501.2300, L501.9520, L501.4700, L500.4050, L500.4100, L501.5200 ####[facility] [address] [place], [address] Chloride [Moles/Vol] 112 mmol/L High 98-107 [facility] Comment on above: Order Comment: Comme nts: NPO at [place] prior to lipid panel Performed By: #### L 100.0100, L501.2300, L501.9520, L501.4700, L500.4050, L500.4100, L501.5200 ####[facility] [address] [place], [address] CO2 [Moles/Vol] 26.0 mmol/L Normal 21.0-32.0 [facility] Comment on above: Order Comment: Comme nts: NPO at [place] prior to lipid panel Performed By: #### L 100.0100, L501.2300, L501.9520, L501.4700, L500.4050, L500.4100, L501.5200 ####[facility] [address] [place], [address] Creatinine [Mass/Vol] 0.77 mg/dL Normal 0.55-1.02 [facility] Comment on above: Order Comment: Comme nts: NPO at [place] prior to lipid panel Result Comment: The validity of the calculated GFR GFRAA in patients over70 years has not been determined. Clinical correlation isessential. Performed By: #### L 100.0100, L501.2300, L501.9520, L501.4700, L500.4050, L500.4100, L501.5200 ####[facility] [address] [place], [address] ECRCL 86.24 ml/min Normal [facility] Comment on above: Order Comment: Comme nts: NPO at [place] prior to lipid panel Performed By: #### L 100.0100, L501.2300, L501.9520, L501.4700, L500.4050, L500.4100, L501.5200 ####[facility] [address] [place], [address] EST GFR - AA 99 mL/min Normal >60 [facility] Comment on above: Order Comment: Comme nts: NPO at [place] prior to lipid panel Result Comment: Afri can [place] GFR Calc Performed By: #### L 100.0100, L501.2300, L501.9520, L501.4700, L500.4050, L500.4100, L501.5200 ####[facility] [address] [place], [address] GAP 4 Low 5-15 [facility] Comment on above: Order Comment: Comme nts: NPO at [place] prior to lipid panel Performed By: #### L 100.0100, L501.2300, L501.9520, L501.4700, L500.4050, L500.4100, L501.5200 ####[facility] [address] [place], [address] GFR/1.73 sq M.predicted among non-blacks MDRD (S/P/Bld) [Vol rate/Area] 82 mL/min/{1.73_m2} Normal >60 [facility] Comment on above: Order Comment: Comme nts: NPO at [place] prior to lipid panel Result Comment: Non- GFR Calc Performed By: #### L 100.0100, L501.2300, L501.9520, L501.4700, L500.4050, L500.4100, L501.5200 ####[facility] [address] [place], [address] Globulin (S) [Mass/Vol] 2.7 g/dL Normal 2.2-4.2 [facility] Comment on above: Order Comment: Comme nts: NPO at [place] prior to lipid panel Performed By: #### L 100.0100, L501.2300, L501.9520, L501.4700, L500.4050, L500.4100, L501.5200 ####[facility] [address] [place], [address] Glucose [Mass/Vol] 93 mg/dL Normal 74-106 [facility] Comment on above: Order Comment: Comme nts: NPO at [place] prior to lipid panel Performed By: #### L 100.0100, L501.2300, L501.9520, L501.4700, L500.4050, L500.4100, L501.5200 ####[facility] [address] [place], [address] Potassium [Moles/Vol] 3.8 mmol/L Normal 3.5-5.1 [facility] Comment on above: Order Comment: Comme nts: NPO at [place] prior to lipid panel Performed By: #### L 100.0100, L501.2300, L501.9520, L501.4700, L500.4050, L500.4100, L501.5200 ####[facility] [address] [place], [address] Sodium [Moles/Vol] 142 mmol/L Normal 136-145 [facility] Comment on above: Order Comment: Comme nts: NPO at [place] prior to lipid panel Performed By: #### L 100.0100, L501.2300, L501.9520, L501.4700, L500.4050, L500.4100, L501.5200 ####[facility] [address] [place], [address] T PROT 6.0 g/dL Low 6.4-8.2 [facility] Comment on above: Order Comment: Comme nts: NPO at [place] prior to lipid panel Performed By: #### L 100.0100, L501.2300, L501.9520, L501.4700, L500.4050, L500.4100, L501.5200 ####[facility] [address] [place], [address] Urea nitrogen [Mass/Vol] 9 mg/dL Normal 7-18 [facility] Comment on above: Order Comment: Comme nts: NPO at [place] prior to lipid panel Performed By: #### L 100.0100, L501.2300, L501.9520, L501.4700, L500.4050, L500.4100, L501.5200 ####[facility] [address] [place], [address] Hemoglobin A1con 07-28-2024 HbA1c (Bld) [Mass fraction] 4.7 % Normal 3.8-5.6 [facility] Comment on above: Result Comment: Norm al < 5.7 % Prediabetic 5.7 - 6.4 % Diabetic >or= 6.5 % Please note range changes. Performed By: #### L 501.9985 ####[facility] [address] [place], [address] Lipid Profileon 07-28-2024 Cholesterol [Mass/Vol] 211 mg/dL High 200 [facility] Comment on above: Order Comment: Comme nts: NPO at [place] prior to lipid panel Result Comment: <200 mg/dL Desirable 200-240 mg/dL Borderline >240 mg/dL High Risk Performed By: #### L 100.0100, L501.2300, L501.9520, L501.4700, L500.4050, L500.4100, L501.5200 ####[facility] [address] [place], [address] Cholesterol in HDL [Mass/Vol] 42 mg/dL Normal [facility] Comment on above: Order Comment: Comme nts: NPO at [place] prior to lipid panel Result Comment: The drugs N-Acetylcysteine and Metamizole may falselydepress this assay. Reference Range HDL <40 mg/dL Low HDL Cholesterol HDL >or= 60 mg/dL High HDL Cholesterol Performed By: #### L 100.0100, L501.2300, L501.9520, L501.4700, L500.4050, L500.4100, L501.5200 ####[facility] [address] [place], [address] Cholesterol in LDL [Mass/Vol] 141 mg/dL High 0-130 [facility] Comment on above: Order Comment: Comme nts: NPO at [place] prior to lipid panel Performed By: #### L 100.0100, L501.2300, L501.9520, L501.4700, L500.4050, L500.4100, L501.5200 ####[facility] [address] [facility] [place], [address] Cholesterol in VLDL [Mass/Vol] 28 mg/dL Normal 5-40 [facility] Comment on above: Order Comment: Comme nts: NPO at [place] prior to lipid panel Performed By: #### L 100.0100, L501.2300, L501.9520, L501.4700, L500.4050, L500.4100, L501.5200 ####[facility] [address] [place], [address] Triglyceride [Mass/Vol] 140 mg/dL Normal [facility] Comment on above: Order Comment: Comme nts: NPO at [place] prior to lipid panel Result Comment: The drugs N-Acetylcysteine and Metamizole may falselydepress this assay.Serum Triglycerides Reference Interval Normal <150 mg/dL Borderline high 150 - 199 mg/dL High 200 - 499 mg/dL Very High > or = 500 mg/dL Performed By: #### L 100.0100, L501.2300, L501.9520, L501.4700, L500.4050, L500.4100, L501.5200 ####[facility] [address] [place], [place], [address] MR/CON.PCM.NEon 07-28-2024 MR/CON.PCM.NE Normal [facility] Magnesiumon 07-28-2024 Magnesium [Mass/Vol] 1.7 mg/dL Normal 1.6-2.6 [facility] Comment on above: Order Comment: Comme nts: NPO at [place] prior to lipid panel Performed By: #### L 100.0100, L501.2300, L501.9520, L501.4700, L500.4050, L500.4100, L501.5200 ####[facility] [address] [place], [address] Phosphoruson 07-28-2024 Phosphate [Mass/Vol] 3.9 mg/dL Normal 2.5-4.9 [facility] Comment on above: Order Comment: Comme nts: NPO at [place] prior to lipid panel Performed By: #### L 100.0100, L501.2300, L501.9520, L501.4700, L500.4050, L500.4100, L501.5200 ####[facility] [address] [place], [address] Thyroid Stim Hormone (TSH)on 07-28-2024 TSH 3.660 uIU/mL Normal 0.358-3.740 [facility] Comment on above: Order Comment: Comme nts: NPO at [place] prior to lipid panel Performed By: #### L 100.0100, L501.2300, L501.9520, L501.4700, L500.4050, L500.4100, L501.5200 ####[facility] [address] [place], [address] 12 Lead EKGon 07-27-2024 12 Lead EKG Normal [facility] Bedside Glucoseon 07-27-2024 FINGERSTICK GLU 92 mg/dL Normal 74-106 [facility] Comment on above: Result Comment: TOMER GALVEZ OF PATIENT CARE PER NURSING PROTOCOL Performed By: #### L 501.080 ####[facility] [address] [place], [address] CBC W/Diff, Automatedon 07-09 0 Absolute Lymph 2.48 X10 3/uL Normal 0.83-4.51 [facility] Comment on above: Performed By: #### L 501.2450, L500.4050, L100.0100 ####[facility] [address] [place], [address] Absolute Neut 4.3 X10 3/uL Normal 2.0-7.7 [facility] Comment on above: Performed By: #### L 501.2450, L500.4050, L100.0100 ####[facility] [address] [place], [address] Basophils/100 WBC (Bld) 0.8 % Normal 0-1 [facility] Comment on above: Performed By: #### L 501.2450, L500.4050, L100.0100 ####[facility] [address] [place], [address] Eosinophils/100 WBC (Bld) 3.2 % Normal 0-5 [facility] Comment on above: Performed By: #### L 501.2450, L500.4050, L100.0100 ####[facility] [address] [place], [address] Erythrocyte distribution width (RBC) [Ratio] 12.1 % Normal 11.6-14.6 [facility] Comment on above: Performed By: #### L 501.2450, L500.4050, L100.0100 ####[facility] [address] [place], [address] Hematocrit (Bld) [Volume fraction] 39.9 % Normal 37-47 [facility] Comment on above: Performed By: #### L 501.2450, L500.4050, L100.0100 ####[facility] [address] [place], [address] Hemoglobin (Bld) [Mass/Vol] 13.9 g/dL Normal 12.0-15.0 [facility] Comment on above: Performed By: #### L 501.2450, L500.4050, L100.0100 ####[facility] [address] [place], [address] IG% 0.300 Normal 0.0-0.9 [facility] Comment on above: Result Comment: IG% - Immature Granulocytes (promyelocytes, myelocytes andmetamyelocytes) > 1% indicates that a LEFT SHIFT is Present. Performed By: #### L 501.2450, L500.4050, L100.0100 ####[facility] [address] [place], [address] Lymphocytes/100 WBC (Bld) 32.9 % Normal 19-41 [facility] Comment on above: Performed By: #### L 501.2450, L500.4050, L100.0100 ####[facility] [address] [place], [address] MCH (RBC) [Entitic mass] 32.0 pg Normal 27.0-32.0 [facility] Comment on above: Performed By: #### L 501.2450, L500.4050, L100.0100 ####[facility] [address] [place], [address] MCHC (RBC) [Mass/Vol] 34.8 g/dL Normal 32-36 [facility] Comment on above: Performed By: #### L 501.2450, L500.4050, L100.0100 ####[facility] [address] [place], [address] MCV (RBC) [Entitic vol] 91.7 fL Normal 81-99 [facility] Comment on above: Performed By: #### L 501.2450, L500.4050, L100.0100 ####[facility] [address] [place], [address] Monocytes/100 WBC (Bld) 6.1 % Normal 0-10 [facility] Comment on above: Performed By: #### L 501.2450, L500.4050, L100.0100 ####[facility] [address] [place], [address] Neutrophils/100 WBC (Bld) 56.7 % Normal 47-70 [facility] Comment on above: Performed By: #### L 501.2450, L500.4050, L100.0100 ####[facility] [address] [place], [address] Nucleated RBC (Bld) [#/Vol] 0 10*3/uL Normal 0-5 [facility] Comment on above: Performed By: #### L 501.2450, L500.4050, L100.0100 ####[facility] [address] [place], [address] Platelet mean volume (Bld) [Entitic vol] 12.2 fL High 6.2-12.0 [facility] Comment on above: Performed By: #### L 501.2450, L500.4050, L100.0100 ####[facility] [address] [place], [address] Platelets (Bld) [#/Vol] 236 10*3/uL Normal 150-450 [facility] Comment on above: Performed By: #### L 501.2450, L500.4050, L100.0100 ####[facility] [address] [place], [address] RBC (Bld) [#/Vol] 4.35 10*6/uL Normal 4.2-5.4 [facility] Comment on above: Performed By: #### L 501.2450, L500.4050, L100.0100 ####[facility] [address] [place], [address] RDW SD 40.3 fl Normal 35.1-43.9 [facility] Comment on above: Performed By: #### L 501.2450, L500.4050, L100.0100 ####[facility] [address] [place], [address] WBC (Bld) [#/Vol] 7.5 10*3/uL Normal 4.4-11.0 [facility] Comment on above: Performed By: #### L 501.2450, L500.4050, L100.0100 ####[facility] [address] [place], [address] CTA Head AND Neck W/ Contras ton 07-27-2024 CTA Head AND Neck W/ Contrast Normal [facility] Chest PA and Lateralon 07-27 Chest PA and Lateral Normal [facility] Comprehensive Metabolic Prof ilon 07-27-2024 Albumin [Mass/Vol] 4.0 g/dL Normal 3.2-5.0 [facility] Comment on above: Performed By: #### L 501.2450, L500.4050, L100.0100 ####[facility] [address] [place], [address] Albumin/Globulin [Mass ratio] 1.2 {ratio} Normal 0.9-2.4 [facility] Comment on above: Performed By: #### L 501.2450, L500.4050, L100.0100 ####[facility] [address] [place], [address] ALK P 78 U/L Normal 45-117 [facility] Comment on above: Performed By: #### L 501.2450, L500.4050, L100.0100 ####[facility] [address] [place], [address] ALT [Catalytic activity/Vol] 15 U/L Normal 13-56 [facility] Comment on above: Performed By: #### L 501.2450, L500.4050, L100.0100 ####[facility] [address] [place], [address] AST [Catalytic activity/Vol] 15 U/L Normal 15-37 [facility] Comment on above: Performed By: #### L 501.2450, L500.4050, L100.0100 ####[facility] [address] [place], [address] Bilirubin [Mass/Vol] 0.70 mg/dL Normal 0.20-1.00 [facility] Comment on above: Result Comment: For patients on eltrombopag therapy, use of Dimension [place] TBIL is not recommended. Performed By: #### L 501.2450, L500.4050, L100.0100 ####[facility] [address] [place], [address] BUN/CRE 12.4 RATIO Normal 10-20 [facility] Comment on above: Performed By: #### L 501.2450, L500.4050, L100.0100 ####[facility] [address] [place], [address] CA,Total 9.4 mg/dL Normal 8.5-10.1 [facility] Comment on above: Performed By: #### L 501.2450, L500.4050, L100.0100 ####[facility] [address] [place], [address] Chloride [Moles/Vol] 108 mmol/L High 98-107 [facility] Comment on above: Performed By: #### L 501.2450, L500.4050, L100.0100 ####[facility] [address] [place], [address] CO2 [Moles/Vol] 25.0 mmol/L Normal 21.0-32.0 [facility] Comment on above: Performed By: #### L 501.2450, L500.4050, L100.0100 ####[facility] [address] [place], [address] Creatinine [Mass/Vol] 0.89 mg/dL Normal 0.55-1.02 [facility] Comment on above: Result Comment: The validity of the calculated GFR GFRAA in patients over70 years has not been determined. Clinical correlation isessential. Performed By: #### L 501.2450, L500.4050, L100.0100 ####[facility] [address] [place], [address] ECRCL 74.95 ml/min Normal [facility] Comment on above: Performed By: #### L 501.2450, L500.4050, L100.0100 ####[facility] [address] [place], [address] EST GFR - AA 84 mL/min Normal >60 [facility] Comment on above: Result Comment: Afri can Citizen [place] GFR Calc Performed By: #### L 501.2450, L500.4050, L100.0100 ####[facility] [address] [place], [address] GAP 7 Normal 5-15 [facility] Comment on above: Performed By: #### L 501.2450, L500.4050, L100.0100 ####[facility] [address] [place], [address] GFR/1.73 sq M.predicted among non-blacks MDRD (S/P/Bld) [Vol rate/Area] 69 mL/min/{1.73_m2} Normal >60 [facility] Comment on above: Result Comment: Non- GFR Calc Performed By: #### L 501.2450, L500.4050, L100.0100 ####[facility] [address] [place], [address] Globulin (S) [Mass/Vol] 3.2 g/dL Normal 2.2-4.2 [facility] Comment on above: Performed By: #### L 501.2450, L500.4050, L100.0100 ####[facility] [address] [place], [address] Glucose [Mass/Vol] 99 mg/dL Normal 74-106 [facility] Comment on above: Performed By: #### L 501.2450, L500.4050, L100.0100 ####[facility] [address] [place], [address] Potassium [Moles/Vol] 3.8 mmol/L Normal 3.5-5.1 [facility] Comment on above: Performed By: #### L 501.2450, L500.4050, L100.0100 ####[facility] [address] [place], [address] Sodium [Moles/Vol] 140 mmol/L Normal 136-145 [facility] Comment on above: Performed By: #### L 501.2450, L500.4050, L100.0100 ####[facility] [address] [place], [address] T PROT 7.2 g/dL Normal 6.4-8.2 [facility] Comment on above: Performed By: #### L 501.2450, L500.4050, L100.0100 ####[facility] [address] [place], [address] Urea nitrogen [Mass/Vol] 11 mg/dL Normal 7-18 [facility] Comment on above: Performed By: #### L 501.2450, L500.4050, L100.0100 ####[facility] [address] [place], [address] Echo Completeon 07-27-2024 Echo Complete Normal [facility] Emergency Department Summary on 07-27-2024 Emergency Department Summary Normal [facility] H AND P Exam - Hospitaliston 07-27-2024 H&P Exam - Hospitalist Normal [facility] Lipaseon 07-27-2024 Lipase [Catalytic activity/Vol] 15 U/L Normal 13-75 [facility] Comment on above: Result Comment: Stefan whiting note:LIPASE revised reference range effective 23.New Lipase methodology. Expected to produce lower valuesthan the previous assay method.NEW Reference Range: 13 - 75 U/L Performed By: #### L 501.2450, L500.4050, L100.0100 ####[facility] [address] [place], [address] M100.678on 07-27-2024 M100.678 Pending SARS-CoV-2 (COVID 19) Negative INFLUENZA A Negative INFLUENZA B Negative RSV PCR Negative Normal [facility] Comment on above: Performed By: #### L 400.0001, M100.678 ####[facility] [address] [place], [address] Urinalysis, Completeon 07-27 BACTERIA RARE Normal None Seen [facility] Comment on above: Order Comment: AGUSTIN CTOR TO SPECIFY Performed By: #### L 400.0001, ####[facility] [address] [place], [address] WBC 0-5 SEEN Normal 0-5 [facility] Comment on above: Order Comment: AGUSTIN CTOR TO SPECIFY Performed By: #### L 400.0001, ####[facility] [address] [place], [address] BILIRUBIN URINE Negative Normal Negative [facility] Comment on above: Order Comment: AGUSTIN CTOR TO SPECIFY Performed By: #### L 400.0001, ####[facility] [address] [place], [address] Clarity (U) Clear Normal Clear [facility] Comment on above: Order Comment: AGUSTIN CTOR TO SPECIFY Performed By: #### L 400.0001, ####[facility] [address] [place], [address] Color (U) Straw Normal Yellow [facility] Comment on above: Order Comment: AGUSTIN CTOR TO SPECIFY Performed By: #### L 400.0001, ####[facility] [address] [place], [address] GLUCOSE, UR Normal Normal Normal [facility] Comment on above: Order Comment: AGUSTIN CTOR TO SPECIFY Performed By: #### L 400.0001, ####[facility] [address] [place], [address] KETONE UR Negative Normal Negative [facility] Comment on above: Order Comment: AGUSTIN CTOR TO SPECIFY Performed By: #### L 400.0001, ####[facility] [address] [place], [address] LEUK ESTERASE 25 /ul Abnormal Negative [facility] Comment on above: Order Comment: AGUSTIN CTOR TO SPECIFY Performed By: #### L 400.0001, ####[facility] [address] [place], [address] Nitrite Ql (U) Negative Normal Negative [facility] Comment on above: Order Comment: AGUSTIN CTOR TO SPECIFY Performed By: #### L 400.0001, ####[facility] [address] [place], [address] OCCULT BLOOD-UR Negative Normal Negative [facility] Comment on above: Order Comment: AGUSTIN CTOR TO SPECIFY Performed By: #### L 400.0001, ####[facility] [address] [place], [address] pH UR 7.0 Normal 5.0 - 8.0 [facility] Comment on above: Order Comment: AGUSTIN CTOR TO SPECIFY Performed By: #### L 400.0001, ####[facility] [address] [place], [address] PROT DIPSTX Negative Normal Negative [facility] Comment on above: Order Comment: AGUSTIN CTOR TO SPECIFY Performed By: #### L 400.0001, ####[facility] [address] [place], [address] SP.GR. DIPSTX 1.005 Normal 1.002-1.030 [facility] Comment on above: Order Comment: AGUSTIN CTOR TO SPECIFY Performed By: #### L 400.0001, ####[facility] [address] [place], [address] UROBILI Normal Normal Normal [facility] Comment on above: Order Comment: AGUSTIN CTOR TO SPECIFY Performed By: #### L 400.0001, M100.678 ####[facility] [address] [place], [address] EPI,SQUAMOUS 0 SEEN Normal 5-10 [facility] Comment on above: Order Comment: [facility] CTOR TO SPECIFY Performed By: #### L 400.0001, M100.678 ####[facility] [address] [place], [address] Mucus Ql (Urine sed) 0 SEEN Normal [facility] Comment on above: Order Comment: [facility] CTOR TO SPECIFY Performed By: #### L 400.0001, M100.678 ####[facility] [address] [place], [address] RBC 0 SEEN Normal 0-5 [facility] Comment on above: Order Comment: [facility] CTOR TO SPECIFY Performed By: #### L 400.0001, M100.678 ####[facility] [address] [place], [address] CT ABD/PELVIS W/ IV CONTRAST ONLYon 07-17-2024 [...] 07/17/2024 4:33:08 PM Ordering Provider: AGAPITO Patton [facility] US ABDOMEN LIMITEDon 024 US ABDOMEN [...] 06/22/2024 9:33:30 AM Ordering Provider: AGAPITO Patton [facility] ([place]) EBVon 06-07-2024 EBV IgG Positive Normal Negative [facility] ([place]) Comment on above: Result Comment: INTE RPRETATION OF EBV IgG BY EIA: Negative: No detectable EBV IgG antibody. Result does not exclude EBV infection. Positive: EBV IgG antibody detected. Indicative of current or past infection. Equivocal: Equivocal for antibodies to EBV. Repeat testing if still indicated. Performed By: #### A MORIS, CBC, GFR, ADIFF, CMP, LIP ####[place] [address]#### EBV ####[place] [address] EBV IgM Negative Normal Negative [facility] ([place]) Comment on above: Result Comment: INTE RPRETATION [...] A MORIS, CBC, GFR, ADIFF, CMP, LIP ####[place] [address]#### EBV ####[place] [address] TSHRon 06-05-2024 TSH Qn 1.48 m[IU]/L Normal 0.36-3.74 [facility] ([place]) Comment on above: Performed By: #### T SHR #### [place] [id number] XR ABDOMEN APon 06-05-2024 XR ABDOMEN AP [...] 06/05/2024 4:58:45 PM Ordering Provider: AGAPITO Patton [facility] ([place]) .Auto Diffon 06-04-2024 Basophil, Absolute 0.1 10 3/mcL Normal 0.0-0.2 [facility] ([place]) Comment on above: Performed By: #### A MORIS, CBC, GFR, ADIFF, CMP, LIP #### [address] [address] #### EBV #### [address] [address] Basophils/100 WBC (Bld) 0.7 % Normal 0.0-2.5 [facility] ([place]) Comment on above: Performed By: #### A MORIS, CBC, GFR, ADIFF, CMP, LIP #### [address] [address] #### EBV #### [address] [address] Eosinophil, Absolute 0.3 10 3/mcL Normal 0.0-0.4 [facility] ([place]) Comment on above: Performed By: #### A MORIS, CBC, GFR, ADIFF, CMP, LIP #### [address] [address] #### EBV #### [address] [address] Eosinophils/100 WBC (Bld) 3.1 % Normal 0.0-7.0 [facility] ([place]) Comment on above: Performed By: #### A MORIS, CBC, GFR, ADIFF, CMP, LIP #### [address] [address] #### EBV #### [address] [address] Lymphocyte, Absolute 2.2 10 3/mcL Normal 0.8-3.9 [facility] ([place]) Comment on above: Performed By: #### A MORIS, CBC, GFR, ADIFF, CMP, LIP #### [address] [address] #### EBV #### [address] [address] Lymphocytes/100 WBC (Bld) 27.5 % Normal 10.0-50.0 [facility] ([place]) Comment on above: Performed By: #### A MORIS, CBC, GFR, ADIFF, CMP, LIP #### [address] [address] #### EBV #### [address] [address] Monocyte, Absolute 0.5 10 3/mcL Normal 0.2-1.0 [facility] ([place]) Comment on above: Performed By: #### A MORIS, CBC, GFR, ADIFF, CMP, LIP #### [place] [address] #### EBV #### [address] [address] Monocytes/100 WBC (Bld) 5.9 % Normal 1.7-13.0 [facility] ([place]) Comment on above: Performed By: #### A MORIS, CBC, GFR, ADIFF, CMP, LIP #### [address] [address] #### EBV #### [address] [address] Neutrophils/100 WBC (Bld) 62.8 % Normal 37.0-80.0 [facility] ([place]) Comment on above: Performed By: #### A MORIS, CBC, GFR, ADIFF, CMP, LIP #### [address] [address] #### EBV #### [address] [address] .GFRon 06-04-2024 GFR 88 ml/min/1.73sqm Normal [facility] ([place]) Comment on above: Result Comment: GFR [...] MORIS, CBC, GFR, ADIFF, CMP, LIP #### [address] [address] #### EBV #### [address] [address] GFR Non- 72 ml/min/1.73sqm Normal [facility] ([place]) Comment on above: Result Comment: GFR Population [...] MORIS, CBC, GFR, ADIFF, CMP, LIP #### [address] [address] #### EBV #### [address] [address] .NEUABSon 06-04-2024 Neutrophil, Absolute 5.0 10 3/mcL Normal 2.9-6.2 [facility] ([place]) Comment on above: Performed By: #### A MORIS, CBC, GFR, ADIFF, CMP, LIP #### [place] [address] #### EBV #### [place] [address] CBCon 06-04-2024 Erythrocyte distribution width (RBC) [Ratio] 12.9 % Normal 11.5-14.5 [facility] ([place]) Comment on above: Performed By: #### A MORIS, CBC, GFR, ADIFF, CMP, LIP #### [place] [address] #### EBV #### [place] [address] Hematocrit (Bld) [Volume fraction] 41.7 % Normal 37.0-47.0 [facility] ([place]) Comment on above: Performed By: #### A MORIS, CBC, GFR, ADIFF, CMP, LIP #### [place] [address] #### EBV #### [place] [address] Hgb 14.5 G/dL Normal 12.0-16.0 [facility] ([place]) Comment on above: Performed By: #### A MORIS, CBC, GFR, ADIFF, CMP, LIP #### [place] [address] #### EBV #### [place] [address] MCH (RBC) [Entitic mass] 32.7 pg High 27.0-31.2 [facility] ([place]) Comment on above: Performed By: #### A MORIS, CBC, GFR, ADIFF, CMP, LIP #### [place] [address] #### EBV #### [place] [address] MCHC 34.8 G/dL Normal 33.0-37.0 [facility] ([place]) Comment on above: Performed By: #### A MORIS, CBC, GFR, ADIFF, CMP, LIP #### [place] [address] #### EBV #### [address] [address] MCV (RBC) [Entitic vol] 93.7 fL Normal 80.0-94.0 [facility] ([place]) Comment on above: Performed By: #### A MORIS, CBC, GFR, ADIFF, CMP, LIP #### [place] [address] #### EBV #### [place] [address] Platelet 233 10 3/mcL Normal 130-400 [facility] ([place]) Comment on above: Performed By: #### A MORIS, CBC, GFR, ADIFF, CMP, LIP #### [place] [address] #### EBV #### [place] [address] Platelet mean volume (Bld) [Entitic vol] 9.6 fL Normal 7.4-10.4 [facility] ([place]) Comment on above: Performed By: #### A MORIS, CBC, GFR, ADIFF, CMP, LIP #### [place] [address] #### EBV #### [place] [address] RBC 4.45 10 6/mcL Normal 4.20-5.40 [facility] ([place]) Comment on above: Performed By: #### A MORIS, CBC, GFR, ADIFF, CMP, LIP #### [place] [address] #### EBV #### [place] [address] WBC 8.0 10 3/mcL Normal 4.6-10.8 [facility] ([place]) Comment on above: Performed By: #### A MORIS, CBC, GFR, ADIFF, CMP, LIP #### [place] [address] #### EBV #### [place] [address] CMPon 06-04-2024 Albumin Level 3.9 G/dL Normal 3.5-5.0 [facility] ([place]) Comment on above: Performed By: #### A MORIS, CBC, GFR, ADIFF, CMP, LIP #### [address] [address] #### EBV #### [address] [address] Albumin/Globulin [Mass ratio] 1.3 {ratio} Normal 1.1-2.5 [facility] ([place]) Comment on above: Performed By: #### A MORIS, CBC, GFR, ADIFF, CMP, LIP #### [address] [address] #### EBV #### [place] [address] ALP [Catalytic activity/Vol] 91 U/L Normal 40-135 [facility] ([place]) Comment on above: Performed By: #### A MORIS, CBC, GFR, ADIFF, CMP, LIP #### [address] [address] #### EBV #### [place] [address] ALT [Catalytic activity/Vol] 17 U/L Normal 14-59 [facility] ([place]) Comment on above: Performed By: #### A MORIS, CBC, GFR, ADIFF, CMP, LIP #### [address] [address] #### EBV #### [place] [address] AST [Catalytic activity/Vol] 12 U/L Normal 10-40 [facility] ([place]) Comment on above: Performed By: #### A MORIS, CBC, GFR, ADIFF, CMP, LIP #### [address] [address] #### EBV #### [place] [address] Bili Total 0.6 mg/dL Normal 0.2-1.0 [facility] ([place]) Comment on above: Result Comment: Use of this assay is not recommended for patients undergoing treatment with eltrombopag due to the potential for falsely elevated results. Performed By: #### A MORIS, CBC, GFR, ADIFF, CMP, LIP #### [address] [address] #### EBV #### [address] [address] BUN/Creatinine Ratio 16 ratio Normal 7-27 [facility] ([place]) Comment on above: Performed By: #### A MORIS, CBC, GFR, ADIFF, CMP, LIP #### [place] [address] #### EBV #### [address] [address] Calcium [Mass/Vol] 9.7 mg/dL Normal 8.4-10.2 [facility] ([place]) Comment on above: Performed By: #### A MORIS, CBC, GFR, ADIFF, CMP, LIP #### [place] [address] #### EBV #### [address] [address] Chloride [Moles/Vol] 107 mmol/L Normal 98-107 [facility] ([place]) Comment on above: Performed By: #### A MORIS, CBC, GFR, ADIFF, CMP, LIP #### [place] [address] #### EBV #### [address] [address] CO2 [Moles/Vol] 27 mmol/L Normal 22-29 [facility] ([place]) Comment on above: Performed By: #### A MORIS, CBC, GFR, ADIFF, CMP, LIP #### [place] [address] #### EBV #### [address] [address] Creatinine [Mass/Vol] 0.81 mg/dL Normal 0.55-1.02 [facility] ([place]) Comment on above: Performed By: #### A MORIS, CBC, GFR, ADIFF, CMP, LIP #### [address] [address] #### EBV #### [address] [address] Electrolyte Balance 10.0 mEq/L Normal 4.0-15.0 [facility] ([place]) Comment on above: Performed By: #### A MORIS, CBC, GFR, ADIFF, CMP, LIP #### [address] [address] #### EBV #### [address] [address] Globulin 3.0 G/dL Normal [facility] ([place]) Comment on above: Performed By: #### A MORIS, CBC, GFR, ADIFF, CMP, LIP #### [address] [address] #### EBV #### [address] [address] Glucose [Mass/Vol] 93 mg/dL Normal 70-105 [facility] ([place]) Comment on above: Performed By: #### A MORIS, CBC, GFR, ADIFF, CMP, LIP #### [address] [address] #### EBV #### [address] [address] Potassium [Moles/Vol] 4.6 mmol/L Normal 3.5-5.1 [facility] ([place]) Comment on above: Performed By: #### A MORIS, CBC, GFR, ADIFF, CMP, LIP #### [address] [address] #### EBV #### [address] [address] Sodium [Moles/Vol] 144 mmol/L Normal 136-145 [facility] ([place]) Comment on above: Performed By: #### A MORIS, CBC, GFR, ADIFF, CMP, LIP #### [address] [address] #### EBV #### [address] [address] Total Protein 6.9 G/dL Normal 6.4-8.2 [facility] ([place]) Comment on above: Performed By: #### A MORIS, CBC, GFR, ADIFF, CMP, LIP #### [address] [address] #### EBV #### [address] [address] Urea nitrogen [Mass/Vol] 13 mg/dL Normal 7-18 [facility] ([place]) Comment on above: Performed By: #### A MORIS, CBC, GFR, ADIFF, CMP, LIP #### [address] [address] #### EBV #### [place] [address] LABORATORYOrdered By: SYSTEM SYSTEM on 06-04-2024 Albumin [...] 06-04-2024 Lipase Level 23 U/L Normal 16-77 [facility] ([place]) Comment on above: Performed By: #### A MORIS, CBC, GFR, ADIFF, CMP, LIP #### [address] [address] #### EBV #### [address] [address] LABORATORYOrdered By: Nikolay Crowley on 05-29-2024 Heterophile Ab LA Ql (S) Positive (05/29/24 10:31 AM) Normal AO Rapid Testing SS MONOon 05-29-2024 Mononucleosis Positive Normal Negative [facility] ([place]) Comment on above: Performed By: #### M BRISA ####[address] [place], [place] [address] ABD Limited w/ Elastographyo n 05-11-2024 ABD Limited w/ Elastography Normal [facility] ANAon 05-08-2024 Nuclear Ab IF (S) [Titer] 40 {titer} Normal Neg 40 [facility] ([place]) Comment on above: Result Comment: CHARMAINE Screen and Titer methodology is an immunofluorescent technique utilizing Hep2 Substrate. Performed By: #### V IDH, ESR, TSHR ####[address] [place] [id number]#### CHARMAINE ####[address] [address] ESRon 05-07-2024 Erythrocyte Sed Rate 3 mm/hr Normal 0-30 [facility] ([place]) Comment on above: Performed By: #### V IDH, ESR, TSHR ####[address] [address]#### CHARMAINE ####[place] [address] LABORATORYOrdered By: SYSTEM SYSTEM on 05-07-2024 25-hydroxyvitamin [...] 05-07-2024 TSH Qn 1.93 m[IU]/L Normal 0.36-3.74 [facility] ([place]) Comment on above: Performed By: #### V IDH, ESR, TSHR ####[address] [place] [id number]#### CHARMAINE ####[place] [address] VIDHon 05-07-2024 Vit. D 25-Hydroxy 38.7 ng/mL Normal [facility] ([place]) Comment on above: Result Comment: Inte rpretive Values Based on Total 25(OH) Vitamin D: Deficient <20 ng/mL Insufficient 20 - <30 ng/mL Sufficient 30-100 ng/mL Performed By: #### V IDH, ESR, TSHR ####[address] [place], [place] [address]#### CHARMAINE ####[place] [address] CHARMAINE Comprehensive Panelon CHARMAINE TABLE Comment Normal . [facility] Comment on above: Result Comment: Auto antibody Disease Association ----- Condition Frequency ---------Antinuclear Antibody, SLE, mixed connectiveDirect (CHARMAINE-D) tissue diseases ---------dsDNA SLE 40 - 60% ---------Chromatin Drug induced SLE 90% SLE 48 - 97% ---------SSA (Ro) SLE 25 - 35% Sjogren's Syndrome 40 - 70% Lupus 100% ---------SSB (La) SLE 10% Sjogren's Syndrome 30% ---------Sm (anti-Cavazos) SLE 15 - 30% ---------TRAY LINE WORKER Mixed Connective Tissue Disease 95%(U1 nRNP, SLE 30 - 50%anti-ribonucleoprotein) Polymyositis and/or Dermatomyositis 20% ---------Scl-70 (antiDNA Scleroderma (diffuse) 20 - 35%topoisomerase) Crest 13% ---------Elena-1 Polymyositis and/or Dermatomyositis 20 - 40% ---------Centromere B Scleroderma - Crest variant 80% Performed By: #### L 504.2610, L800.1280, L3400.0700, L501.6710, L500.4050, L100.0100, L803.2200, L3300.0100, L3100.5440, L503.6550, L3300.1200 ####[facility] [address] [place], [address] ANTI-CENT B AB <0.2 Normal 0.0-0.9 [facility] Comment on above: Performed By: #### L 504.2610, L800.1280, L3400.0700, L501.6710, L500.4050, L100.0100, L803.2200, L3300.0100, L3100.5440, L503.6550, L3300.1200 ####[facility] [address] [place], [address] ANTI-DNA (DS)AB <1 Normal 0-9 [facility] Comment on above: Result Comment: Nega tive <5 Equivocal 5 - 9 Positive >9 Performed By: #### L 504.2610, L800.1280, L3400.0700, L501.6710, L500.4050, L100.0100, L803.2200, L3300.0100, L3100.5440, L503.6550, L3300.1200 ####[facility] [facility] [address] [place], [place], [phone](249) ANTI-ELENA-1 <0.2 Normal 0.0-0.9 [facility] Comment on above: Performed By: #### L 504.2610, L800.1280, L3400.0700, L501.6710, L500.4050, L100.0100, L803.2200, L3300.0100, L3100.5440, L503.6550, L3300.1200 ####[facility] [address] [place], [place], [id number] ANTI-SS-A < 0.2 Normal 0.0-0.9 [facility] Comment on above: Performed By: #### L 504.2610, L800.1280, L3400.0700, L501.6710, L500.4050, L100.0100, L803.2200, L3300.0100, L3100.5440, L503.6550, L3300.1200 ####[facility] [address] [place], [address] Anti-SS-B < 0.2 Normal 0.0-0.9 [facility] Comment on above: Performed By: #### L 504.2610, L800.1280, L3400.0700, L501.6710, L500.4050, L100.0100, L803.2200, L3300.0100, L3100.5440, L503.6550, L3300.1200 ####[facility] [address] [place], [address](230) ANTICHROMATIN <0.2 Normal 0.0-0.9 [facility] Comment on above: Performed By: #### L 504.2610, L800.1280, L3400.0700, L501.6710, L500.4050, L100.0100, L803.2200, L3300.0100, L3100.5440, L503.6550, L3300.1200 ####[facility] [address] [place], [place], [phone] ANTISCLERODERM <0.2 Normal 0.0-0.9 [facility] Comment on above: Performed By: #### L 504.2610, L800.1280, L3400.0700, L501.6710, L500.4050, L100.0100, L803.2200, L3300.0100, L3100.5440, L503.6550, L3300.1200 ####[facility] [address] [place], [place], [phone] TRAY LINE WORKER Ab 0.2 AI Normal 0.0-0.9 [facility] Comment on above: Performed By: #### L 504.2610, L800.1280, L3400.0700, L501.6710, L500.4050, L100.0100, L803.2200, L3300.0100, L3100.5440, L503.6550, L3300.1200 ####[facility] [address] [place], [address] CAVAZOS Ab <0.2 Normal 0.0-0.9 [facility] Comment on above: Performed By: #### L 504.2610, L800.1280, L3400.0700, L501.6710, L500.4050, L100.0100, L803.2200, L3300.0100, L3100.5440, L503.6550, L3300.1200 ####[facility] [address] [place], [place], [phone] ANCAon 04-25-2024 Atypical pANCA <1:20 Normal Neg:<1:20 [facility] Comment on above: Order Comment: Test( s) 344164-Rwkrhz, Serum or Plasmawas developed and its performance characteristicsdetermined by ozuke. It has not been cleared or approvedby the Food and Drug Administration. Result Comment: The atypical pANCA pattern has been observed in asignificant percentage of patients with ulcerative colitis,primary sclerosing cholangitis and autoimmune hepatitis. Performed By: #### L 504.2610, L800.1280, L3400.0700, L501.6710, L500.4050, L100.0100, L803.2200, L3300.0100, L3100.5440, L503.6550, L3300.1200 ####[facility] [address] [facility] [place], [place], [phone](463) Cytoplasmic Ab <1:20 Normal Neg:<1:20 [facility] Comment on above: Order Comment: Test( s) 470097-Fprcux, Serum or Plasmawas developed and its performance characteristicsdetermined by ozuke. It has not been cleared or approvedby the Food and Drug Administration. Performed By: #### L 504.2610, L800.1280, L3400.0700, L501.6710, L500.4050, L100.0100, L803.2200, L3300.0100, L3100.5440, L503.6550, L3300.1200 ####[facility] [address] [facility] [address] [place], [place], [phone](218) Perinuclear Ab. <1:20 Normal Neg:<1:20 [facility] Comment on above: Order Comment: Test( s) 900892-Ftbhnk, Serum or Plasmawas developed and its performance characteristicsdetermined by ozuke. It has not been cleared or approvedby the Food and Drug Administration. Result Comment: The presence of positive fluorescence exhibiting P-ANCA orC-ANCA patterns alone is not specific for the diagnosis ofWegener's Granulomatosis (WG) or microscopic polyangiitis.Decisions about treatment should not be based solely onANCA IFA results. The International ANCA Group Consensusrecommends follow up testing of positive sera with both AR-3 and MPO-ANCA enzyme immunoassays. As many as 5% serumsamples are positive only by EIA. Ref. AM J Clin Ijgxpo1044;111:507-513. Performed By: #### L 504.2610, L800.1280, L3400.0700, L501.6710, L500.4050, L100.0100, L803.2200, L3300.0100, L3100.5440, L503.6550, L3300.1200 ####[facility] [address] [place], [address] Anti-Mitochondrial ABon - ANTIMITOCHON AB <20.0 Normal 0.0-20.0 [facility] Comment on above: Result Comment: Nega tive 0.0 - 20.0 Equivocal 20.1 - 24.9 Positive >24.9Mitochondrial (M2) Antibodies are found in 90-96% ofpatients with primary biliary cirrhosis.Performed at: [facility] [employer] [place] [id number] Director: Danny Rodríguez PhD, Phone: [phone] Performed By: #### L 504.2610, L800.1280, L3400.0700, L501.6710, L500.4050, L100.0100, L803.2200, L3300.0100, L3100.5440, L503.6550, L3300.1200 ####[facility] [address] [place], [address] Anti-Smooth Muscle ABSon ANTISMOOTH MUSC 4 Units Normal 0-19 [facility] Comment on above: Order Comment: Test( s) [id number]-Czhxoj, Serum or Plasmawas developed and its performance characteristicsdetermined by ozuke. It has not been cleared or approvedby [...] L500.4050, L100.0100, L803.2200, L3300.0100, L3100.5440, L503.6550, L3300.1200 ####[facility] [address] [place], [place], [phone] Ceruloplasminon 04-25-2024 CERULOPLASMIN 33.4 mg/dL Normal 19.0-39.0 [facility] Comment on above: Order Comment: Test( s) 021249-Kzuvhh, Serum or Plasmawas developed and its performance characteristicsdetermined by ozuke. It has not been cleared or approvedby the Food and Drug Administration. Performed By: #### L 504.2610, L800.1280, L3400.0700, L501.6710, L500.4050, L100.0100, L803.2200, L3300.0100, L3100.5440, L503.6550, L3300.1200 ####[facility] [address] [facility] [address] [place], [place], [phone] Copper, Serum or Plasmaon COPPER, SERUM 129 ug/dL Normal 80-158 [facility] Comment on above: Order Comment: Test( s) 624859-Rcsdgq, Serum or Plasmawas developed and its performance characteristicsdetermined by ozuke. It has not been cleared or approvedby the Food and Drug Administration. Result Comment: Dete ction Limit = 5Performed at: [facility] [employer] [id number] Director: Danny Rodríguez PhD, Phone: [phone] at: [facility] [employer] [id number] Director: Blake Vicente MD, Phone: [phone] Performed By: #### L 504.2610, L800.1280, L3400.0700, L501.6710, L500.4050, L100.0100, L803.2200, L3300.0100, L3100.5440, L503.6550, L3300.1200 ####[facility] [address] [place], [place], [phone] CBC W/Diff, Automatedon - Absolute Lymph 1.77 X10 3/uL Normal 0.83-4.51 [facility] Comment on above: Performed By: #### L 504.2610, L800.1280, L3400.0700, L501.6710, L500.4050, L100.0100, L803.2200, L3300.0100, L3100.5440, L503.6550, L3300.1200 ####[facility] [address] [place], [place], [phone] Absolute Neut 4.1 X10 3/uL Normal 2.0-7.7 [facility] Comment on above: Performed By: #### L 504.2610, L800.1280, L3400.0700, L501.6710, L500.4050, L100.0100, L803.2200, L3300.0100, L3100.5440, L503.6550, L3300.1200 ####[facility] [address] [place], [address] Basophils/100 WBC (Bld) 0.8 % Normal 0-1 [facility] Comment on above: Performed By: #### L 504.2610, L800.1280, L3400.0700, L501.6710, L500.4050, L100.0100, L803.2200, L3300.0100, L3100.5440, L503.6550, L3300.1200 ####[facility] [address] [place], [phone] Eosinophils/100 WBC (Bld) 2.8 % Normal 0-5 [facility] Comment on above: Performed By: #### L 504.2610, L800.1280, L3400.0700, L501.6710, L500.4050, L100.0100, L803.2200, L3300.0100, L3100.5440, L503.6550, L3300.1200 ####[facility] [address] [place], [address] Erythrocyte distribution width (RBC) [Ratio] 12.3 % Normal 11.6-14.6 [facility] Comment on above: Performed By: #### L 504.2610, L800.1280, L3400.0700, L501.6710, L500.4050, L100.0100, L803.2200, L3300.0100, L3100.5440, L503.6550, L3300.1200 ####[facility] [address] [place], [address] Hematocrit (Bld) [Volume fraction] 42.6 % Normal 37-47 [facility] Comment on above: Performed By: #### L 504.2610, L800.1280, L3400.0700, L501.6710, L500.4050, L100.0100, L803.2200, L3300.0100, L3100.5440, L503.6550, L3300.1200 ####[facility] [address] [facility] [place], [address] Hemoglobin (Bld) [Mass/Vol] 14.3 g/dL Normal 12.0-15.0 [facility] Comment on above: Performed By: #### L 504.2610, L800.1280, L3400.0700, L501.6710, L500.4050, L100.0100, L803.2200, L3300.0100, L3100.5440, L503.6550, L3300.1200 ####[facility] [address] [facility] [place], [address] IG% 0.300 Normal 0.0-0.9 [facility] Comment on above: Result Comment: IG% - Immature Granulocytes (promyelocytes, myelocytes andmetamyelocytes) > 1% indicates that a LEFT SHIFT is Present. Performed By: #### L 504.2610, L800.1280, L3400.0700, L501.6710, L500.4050, L100.0100, L803.2200, L3300.0100, L3100.5440, L503.6550, L3300.1200 ####[facility] [address] [place], [address] Lymphocytes/100 WBC (Bld) 27.1 % Normal 19-41 [facility] Comment on above: Performed By: #### L 504.2610, L800.1280, L3400.0700, L501.6710, L500.4050, L100.0100, L803.2200, L3300.0100, L3100.5440, L503.6550, L3300.1200 ####[facility] [address] [place], [address] MCH (RBC) [Entitic mass] 31.7 pg Normal 27.0-32.0 [facility] Comment on above: Performed By: #### L 504.2610, L800.1280, L3400.0700, L501.6710, L500.4050, L100.0100, L803.2200, L3300.0100, L3100.5440, L503.6550, L3300.1200 ####[facility] [address] [place], [address] MCHC (RBC) [Mass/Vol] 33.6 g/dL Normal 32-36 [facility] Comment on above: Performed By: #### L 504.2610, L800.1280, L3400.0700, L501.6710, L500.4050, L100.0100, L803.2200, L3300.0100, L3100.5440, L503.6550, L3300.1200 ####[facility] [address] [place], [address] MCV (RBC) [Entitic vol] 94.5 fL Normal 81-99 [facility] Comment on above: Performed By: #### L 504.2610, L800.1280, L3400.0700, L501.6710, L500.4050, L100.0100, L803.2200, L3300.0100, L3100.5440, L503.6550, L3300.1200 ####[facility] [address] [place], [address] Monocytes/100 WBC (Bld) 5.8 % Normal 0-10 [facility] Comment on above: Performed By: #### L 504.2610, L800.1280, L3400.0700, L501.6710, L500.4050, L100.0100, L803.2200, L3300.0100, L3100.5440, L503.6550, L3300.1200 ####[facility] [address] [place], [address] Neutrophils/100 WBC (Bld) 63.2 % Normal 47-70 [facility] Comment on above: Performed By: #### L 504.2610, L800.1280, L3400.0700, L501.6710, L500.4050, L100.0100, L803.2200, L3300.0100, L3100.5440, L503.6550, L3300.1200 ####[facility] [address] [place], [address] Nucleated RBC (Bld) [#/Vol] 0 10*3/uL Normal 0-5 [facility] Comment on above: Performed By: #### L 504.2610, L800.1280, L3400.0700, L501.6710, L500.4050, L100.0100, L803.2200, L3300.0100, L3100.5440, L503.6550, L3300.1200 ####[facility] [address] [place], [address] Platelet mean volume (Bld) [Entitic vol] 11.0 fL Normal 6.2-12.0 [facility] Comment on above: Performed By: #### L 504.2610, L800.1280, L3400.0700, L501.6710, L500.4050, L100.0100, L803.2200, L3300.0100, L3100.5440, L503.6550, L3300.1200 ####[facility] [address] [place], [address] Platelets (Bld) [#/Vol] 235 10*3/uL Normal 150-450 [facility] Comment on above: Performed By: #### L 504.2610, L800.1280, L3400.0700, L501.6710, L500.4050, L100.0100, L803.2200, L3300.0100, L3100.5440, L503.6550, L3300.1200 ####[facility] [address] [place], [address] RBC (Bld) [#/Vol] 4.51 10*6/uL Normal 4.2-5.4 [facility] Comment on above: Performed By: #### L 504.2610, L800.1280, L3400.0700, L501.6710, L500.4050, L100.0100, L803.2200, L3300.0100, L3100.5440, L503.6550, L3300.1200 ####[facility] [address] [place], [address] RDW SD 42.5 fl Normal 35.1-43.9 [facility] Comment on above: Performed By: #### L 504.2610, L800.1280, L3400.0700, L501.6710, L500.4050, L100.0100, L803.2200, L3300.0100, L3100.5440, L503.6550, L3300.1200 ####[facility] [address] [place], [place], [phone] WBC (Bld) [#/Vol] 6.5 10*3/uL Normal 4.4-11.0 [facility] Comment on above: Performed By: #### L 504.2610, L800.1280, L3400.0700, L501.6710, L500.4050, L100.0100, L803.2200, L3300.0100, L3100.5440, L503.6550, L3300.1200 ####[facility] [address] [facility] [place], [address] CRPon 04-24-2024 C-REACTIVE PROT 7.69 mg/L High 0.0-3.0 [facility] Comment on above: Order Comment: 1 Result Comment: C-Re active Protein (CRP) provides useful information for thediagnosis, therapy and monitoring of inflammatory processesand associated diseases. For the evaluation of Relative Riskfor Cardiovascular Disease, a High Sensitivity CRP (HSCRP)should be ordered. Performed By: #### L 504.2610, L800.1280, L3400.0700, L501.6710, L500.4050, L100.0100, L803.2200, L3300.0100, L3100.5440, L503.6550, L3300.1200 ####[facility] [address] [place], [place], [phone] Comprehensive Metabolic Prof ilon 04-24-2024 Albumin [Mass/Vol] 4.0 g/dL Normal 3.2-5.0 [facility] Comment on above: Order Comment: 1 Performed By: #### L 504.2610, L800.1280, L3400.0700, L501.6710, L500.4050, L100.0100, L803.2200, L3300.0100, L3100.5440, L503.6550, L3300.1200 ####[facility] [address] [place], [address] Albumin/Globulin [Mass ratio] 1.1 {ratio} Normal 0.9-2.4 [facility] Comment on above: Order Comment: 1 Performed By: #### L 504.2610, L800.1280, L3400.0700, L501.6710, L500.4050, L100.0100, L803.2200, L3300.0100, L3100.5440, L503.6550, L3300.1200 ####[facility] [address] [place], [address] ALK P 97 U/L Normal 45-117 [facility] Comment on above: Order Comment: 1 Performed By: #### L 504.2610, L800.1280, L3400.0700, L501.6710, L500.4050, L100.0100, L803.2200, L3300.0100, L3100.5440, L503.6550, L3300.1200 ####[facility] [address] [place], [address] ALT [Catalytic activity/Vol] 20 U/L Normal 13-56 [facility] Comment on above: Order Comment: 1 Performed By: #### L 504.2610, L800.1280, L3400.0700, L501.6710, L500.4050, L100.0100, L803.2200, L3300.0100, L3100.5440, L503.6550, L3300.1200 ####[facility] [address] [place], [address] AST [Catalytic activity/Vol] 14 U/L Low 15-37 [facility] Comment on above: Order Comment: 1 Performed By: #### L 504.2610, L800.1280, L3400.0700, L501.6710, L500.4050, L100.0100, L803.2200, L3300.0100, L3100.5440, L503.6550, L3300.1200 ####[facility] [address] [place], [place], [phone](731) Bilirubin [Mass/Vol] 0.40 mg/dL Normal 0.20-1.00 [facility] Comment on above: Order Comment: 1 Result Comment: For patients on eltrombopag therapy, use of Dimension [place] TBIL is not recommended. Performed By: #### L 504.2610, L800.1280, L3400.0700, L501.6710, L500.4050, L100.0100, L803.2200, L3300.0100, L3100.5440, L503.6550, L3300.1200 ####[facility] [address] [place], [place], [phone](724) BUN/CRE 16.1 RATIO Normal 10-20 [facility] Comment on above: Order Comment: 1 Performed By: #### L 504.2610, L800.1280, L3400.0700, L501.6710, L500.4050, L100.0100, L803.2200, L3300.0100, L3100.5440, L503.6550, L3300.1200 ####[facility] [address] [place], [address](747) CA,Total 9.4 mg/dL Normal 8.5-10.1 [facility] Comment on above: Order Comment: 1 Performed By: #### L 504.2610, L800.1280, L3400.0700, L501.6710, L500.4050, L100.0100, L803.2200, L3300.0100, L3100.5440, L503.6550, L3300.1200 ####[facility] [address] [place], [address] Chloride [Moles/Vol] 107 mmol/L Normal 98-107 [facility] Comment on above: Order Comment: 1 Performed By: #### L 504.2610, L800.1280, L3400.0700, L501.6710, L500.4050, L100.0100, L803.2200, L3300.0100, L3100.5440, L503.6550, L3300.1200 ####[facility] [address] [place], [address] CO2 [Moles/Vol] 26.0 mmol/L Normal 21.0-32.0 [facility] Comment on above: Order Comment: 1 Performed By: #### L 504.2610, L800.1280, L3400.0700, L501.6710, L500.4050, L100.0100, L803.2200, L3300.0100, L3100.5440, L503.6550, L3300.1200 ####[facility] [address] [place], [address] Creatinine [Mass/Vol] 0.81 mg/dL Normal 0.55-1.02 [facility] Comment on above: Order Comment: 1 Result Comment: The validity of the calculated GFR GFRAA in patients over70 years has not been determined. Clinical correlation isessential. Performed By: #### L 504.2610, L800.1280, L3400.0700, L501.6710, L500.4050, L100.0100, L803.2200, L3300.0100, L3100.5440, L503.6550, L3300.1200 ####[facility] [address] [place], [address] EST GFR - AA 94 mL/min Normal >60 [facility] Comment on above: Order Comment: 1 Result Comment: Afri can Citizen [place] GFR Calc Performed By: #### L 504.2610, L800.1280, L3400.0700, L501.6710, L500.4050, L100.0100, L803.2200, L3300.0100, L3100.5440, L503.6550, L3300.1200 ####[facility] [address] [place], [address] GAP 5 Normal 5-15 [facility] Comment on above: Order Comment: 1 Performed By: #### L 504.2610, L800.1280, L3400.0700, L501.6710, L500.4050, L100.0100, L803.2200, L3300.0100, L3100.5440, L503.6550, L3300.1200 ####[facility] [address] [place], [address] GFR/1.73 sq M.predicted among non-blacks MDRD (S/P/Bld) [Vol rate/Area] 77 mL/min/{1.73_m2} Normal >60 [facility] Comment on above: Order Comment: 1 Result Comment: Non- GFR Calc Performed By: #### L 504.2610, L800.1280, L3400.0700, L501.6710, L500.4050, L100.0100, L803.2200, L3300.0100, L3100.5440, L503.6550, L3300.1200 ####[facility] [address] [place], [address] Globulin (S) [Mass/Vol] 3.6 g/dL Normal 2.2-4.2 [facility] Comment on above: Order Comment: 1 Performed By: #### L 504.2610, L800.1280, L3400.0700, L501.6710, L500.4050, L100.0100, L803.2200, L3300.0100, L3100.5440, L503.6550, L3300.1200 ####[facility] [address] [place], [address] Glucose [Mass/Vol] 101 mg/dL Normal 74-106 [facility] Comment on above: Order Comment: 1 Result Comment: Fast ing Glucose result from 100 to 125 mg/dLsuggests IMPAIRED HOMEOSTASIS per A.D.A. criteria. Performed By: #### L 504.2610, L800.1280, L3400.0700, L501.6710, L500.4050, L100.0100, L803.2200, L3300.0100, L3100.5440, L503.6550, L3300.1200 ####[facility] [address] [place], [address] Potassium [Moles/Vol] 4.0 mmol/L Normal 3.5-5.1 [facility] Comment on above: Order Comment: 1 Performed By: #### L 504.2610, L800.1280, L3400.0700, L501.6710, L500.4050, L100.0100, L803.2200, L3300.0100, L3100.5440, L503.6550, L3300.1200 ####[facility] [address] [place], [address] Sodium [Moles/Vol] 138 mmol/L Normal 136-145 [facility] Comment on above: Order Comment: 1 Performed By: #### L 504.2610, L800.1280, L3400.0700, L501.6710, L500.4050, L100.0100, L803.2200, L3300.0100, L3100.5440, L503.6550, L3300.1200 ####[facility] [address] [place], [address] T PROT 7.6 g/dL Normal 6.4-8.2 [facility] Comment on above: Order Comment: 1 Performed By: #### L 504.2610, L800.1280, L3400.0700, L501.6710, L500.4050, L100.0100, L803.2200, L3300.0100, L3100.5440, L503.6550, L3300.1200 ####[facility] [address] [place], [address] Urea nitrogen [Mass/Vol] 13 mg/dL Normal 7-18 [facility] Comment on above: Order Comment: 1 Performed By: #### L 504.2610, L800.1280, L3400.0700, L501.6710, L500.4050, L100.0100, L803.2200, L3300.0100, L3100.5440, L503.6550, L3300.1200 ####[facility] [address] [place], [address] Ferritinon 04-24-2024 Ferritin [Mass/Vol] 60 ng/mL Normal 8-252 [facility] Comment on above: Order Comment: 1 Performed By: #### L 504.2610, L800.1280, L3400.0700, L501.6710, L500.4050, L100.0100, L803.2200, L3300.0100, L3100.5440, L503.6550, L3300.1200 ####[facility] [address] [place], [place], [phone] Gastroenterology Visit Repor ton 04-24-2024 Gastroenterology Visit Report Normal [facility] LDHon 04-24-2024 LDH 204 U/L Normal 84-246 [facility] Comment on above: Order Comment: 1 Performed By: #### L 504.2610, L800.1280, L3400.0700, L501.6710, L500.4050, L100.0100, L803.2200, L3300.0100, L3100.5440, L503.6550, L3300.1200 ####[facility] [id number] [place], [address] [facility] Telephone (AGSPINE2) Lucita SARAH MENDES ([id number]) 1965 F Date Time Provider Department 04/16/24 GAYATHRI BOWDEN AGSPINE2 During your visit today, we recorded the following information about you: Gayathri Bowden, FURRIER APPRENTICE.KEVIN 04/16/2024 6:44 AM Signed OK to schedule [...] Encounter Status:Closed by GAYATHRI BOWDEN on 04/16/24 [facility] 04-12-2024 DONOVAN Telephone (AGSPINE2) SARAH SAVAGE ([id number]) 1965 F Date Time Provider Department 04/12/24 [facility] visit today, we recorded the following information about you: Gayathri Bowdne APRN.DOOR [facility]INGER 04/12/2024 7:04 AM Signed OK to schedule [...] Encounter Status:Closed by GAYATHRI BOWDEN on 04/12/24 [facility] .Auto Diffon 12-14-2023 Basophil, Absolute 0.0 10 3/mcL Normal 0.0-0.2 [facility] ([place]) Comment on above: Performed By: #### C MP, ANEU, LIPID, CBC, GFR, ADIFF ####[id number] [place], [place] [address] Basophils/100 WBC (Bld) 0.7 % Normal 0.0-2.5 [facility] ([place]) Comment on above: Performed By: #### C MP, ANEU, LIPID, CBC, GFR, ADIFF ####[id number] [place], [place] [address] Eosinophil, Absolute 0.3 10 3/mcL Normal 0.0-0.4 [facility] ([place]) Comment on above: Performed By: #### C MP, ANEU, LIPID, CBC, GFR, ADIFF ####[address] [place], [place] [address] Eosinophils/100 WBC (Bld) 4.4 % Normal 0.0-7.0 [facility] ([place]) Comment on above: Performed By: #### C MP, ANEU, LIPID, CBC, GFR, ADIFF ####[address] [place], [place] [address] Lymphocyte, Absolute 2.3 10 3/mcL Normal 0.8-3.9 [facility] ([place]) Comment on above: Performed By: #### C MP, ANEU, LIPID, CBC, GFR, ADIFF ####[id number] [place], [place] [address] Lymphocytes/100 WBC (Bld) 35.7 % Normal 10.0-50.0 [facility] ([place]) Comment on above: Performed By: #### C MP, ANEU, LIPID, CBC, GFR, ADIFF ####[address] [place], [place] [address] Monocyte, Absolute 0.4 10 3/mcL Normal 0.2-1.0 [facility] ([place]) Comment on above: Performed By: #### C MP, ANEU, LIPID, CBC, GFR, ADIFF ####[address] [place], [place] [address] Monocytes/100 WBC (Bld) 6.1 % Normal 1.7-13.0 [facility] ([place]) Comment on above: Performed By: #### C MP, ANEU, LIPID, CBC, GFR, ADIFF ####[address] [place], [place] [address] Neutrophils/100 WBC (Bld) 53.1 % Normal 37.0-80.0 [facility] ([place]) Comment on above: Performed By: #### C MP, ANEU, LIPID, CBC, GFR, ADIFF ####[address] [place], [place] [address] .GFRon 12-14-2023 GFR Non- 68 ml/min/1.73sqm Normal [facility] ([place]) Comment on above: Result Comment: GFR Population [...] ANEU, LIPID, CBC, GFR, ADIFF ####[address] [place], [place] [address] GFR 82 ml/min/1.73sqm Normal [facility] ([place]) Comment on above: Result Comment: GFR Population [...] ANEU, LIPID, CBC, GFR, ADIFF ####[address] [place], [place] [address] .NEUABSon 12-14-2023 Neutrophil, Absolute 3.4 10 3/mcL Normal 2.9-6.2 [facility] ([place]) Comment on above: Performed By: #### C MP, ANEU, LIPID, CBC, GFR, ADIFF ####[address] [place], [place] [address] CBCon 12-14-2023 Erythrocyte distribution width (RBC) [Ratio] 12.9 % Normal 11.5-14.5 [facility] ([place]) Comment on above: Performed By: #### C MP, ANEU, LIPID, CBC, GFR, ADIFF ####[address] [place], [place] [address] Hematocrit (Bld) [Volume fraction] 37.2 % Normal 37.0-47.0 [facility] ([place]) Comment on above: Performed By: #### C MP, ANEU, LIPID, CBC, GFR, ADIFF ####[address] [place], [place] [address] Hgb 13.2 G/dL Normal 12.0-16.0 [facility] ([place]) Comment on above: Performed By: #### C MP, ANEU, LIPID, CBC, GFR, ADIFF ####[address] [place], [place] [address] MCH (RBC) [Entitic mass] 32.6 pg High 27.0-31.2 [facility] ([place]) Comment on above: Performed By: #### C MP, ANEU, LIPID, CBC, GFR, ADIFF ####[address] [place], [place] [address] MCHC 35.6 G/dL Normal 33.0-37.0 [facility] ([place]) Comment on above: Performed By: #### C MP, ANEU, LIPID, CBC, GFR, ADIFF ####[address] [place], [place] [address] MCV (RBC) [Entitic vol] 91.6 fL Normal 80.0-94.0 [facility] ([place]) Comment on above: Performed By: #### C MP, ANEU, LIPID, CBC, GFR, ADIFF ####[address] [place], [place] [address] Platelet 207 10 3/mcL Normal 130-400 [facility] ([place]) Comment on above: Performed By: #### C MP, ANEU, LIPID, CBC, GFR, ADIFF ####[address] [place], [place] [address] Platelet mean volume (Bld) [Entitic vol] 10.2 fL Normal 7.4-10.4 [facility] ([place]) Comment on above: Performed By: #### C MP, ANEU, LIPID, CBC, GFR, ADIFF ####[address] [place], [place] [address] RBC 4.06 10 6/mcL Low 4.20-5.40 [facility] ([place]) Comment on above: Performed By: #### C MP, ANEU, LIPID, CBC, GFR, ADIFF ####[address] [place], [place] [address] WBC 6.4 10 3/mcL Normal 4.6-10.8 [facility] ([place]) Comment on above: Performed By: #### C MP, ANEU, LIPID, CBC, GFR, ADIFF ####[address] [place], [place] [address] CMPon 12-14-2023 Albumin Level 3.4 G/dL Low 3.5-5.0 [facility] ([place]) Comment on above: Performed By: #### C MP, ANEU, LIPID, CBC, GFR, ADIFF ####[address] [place], [place] [address] Albumin/Globulin [Mass ratio] 1.2 {ratio} Normal 1.1-2.5 [facility] ([place]) Comment on above: Performed By: #### C MP, ANEU, LIPID, CBC, GFR, ADIFF ####[address] [place], [place] [address] ALP [Catalytic activity/Vol] 86 U/L Normal 40-135 [facility] ([place]) Comment on above: Performed By: #### C MP, ANEU, LIPID, CBC, GFR, ADIFF ####[address] [place], [place] [address] ALT [Catalytic activity/Vol] 20 U/L Normal 14-59 [facility] ([place]) Comment on above: Performed By: #### C MP, ANEU, LIPID, CBC, GFR, ADIFF ####[address] [place], [place] [address] AST [Catalytic activity/Vol] 16 U/L Normal 10-40 [facility] ([place]) Comment on above: Performed By: #### C MP, ANEU, LIPID, CBC, GFR, ADIFF ####[address] [place], [place] [address] Bili Total 0.4 mg/dL Normal 0.2-1.0 [facility] ([place]) Comment on above: Result Comment: Use of this assay is not recommended for patients undergoing treatment with eltrombopag due to the potential for falsely elevated results. Performed By: #### C MP, ANEU, LIPID, CBC, GFR, ADIFF ####[address] [place], [place] [address] BUN/Creatinine Ratio 12 ratio Normal 7-27 [facility] ([place]) Comment on above: Performed By: #### C MP, ANEU, LIPID, CBC, GFR, ADIFF ####[address] [place], [place] [address] Calcium [Mass/Vol] 8.5 mg/dL Normal 8.4-10.2 [facility] ([place]) Comment on above: Performed By: #### C MP, ANEU, LIPID, CBC, GFR, ADIFF ####[address] [place], [place] [address] Chloride [Moles/Vol] 106 mmol/L Normal 98-107 [facility] ([place]) Comment on above: Performed By: #### C MP, ANEU, LIPID, CBC, GFR, ADIFF ####[address] [place], [place] [address] CO2 [Moles/Vol] 26 mmol/L Normal 22-29 [facility] ([place]) Comment on above: Performed By: #### C MP, ANEU, LIPID, CBC, GFR, ADIFF ####[address] [place], [place] [address] Creatinine [Mass/Vol] 0.86 mg/dL Normal 0.55-1.02 [facility] ([place]) Comment on above: Performed By: #### C MP, ANEU, LIPID, CBC, GFR, ADIFF ####[address] [place], [place] [address] Electrolyte Balance 13.0 mEq/L Normal 4.0-15.0 [facility] ([place]) Comment on above: Performed By: #### C MP, ANEU, LIPID, CBC, GFR, ADIFF ####[address] [place], [place] [address] Globulin 2.9 G/dL Normal [facility] ([place]) Comment on above: Performed By: #### C MP, ANEU, LIPID, CBC, GFR, ADIFF ####[address] [place], [place] [address] Glucose [Mass/Vol] 96 mg/dL Normal 70-105 [facility] ([place]) Comment on above: Performed By: #### C MP, ANEU, LIPID, CBC, GFR, ADIFF ####[address] [place], [place] [address] Potassium [Moles/Vol] 4.6 mmol/L Normal 3.5-5.1 [facility] ([place]) Comment on above: Performed By: #### C MP, ANEU, LIPID, CBC, GFR, ADIFF ####[address] [place], [place] [address] Sodium [Moles/Vol] 145 mmol/L Normal 136-145 [facility] ([place]) Comment on above: Performed By: #### C MP, ANEU, LIPID, CBC, GFR, ADIFF ####[address] [place], [place] [address] Total Protein 6.3 G/dL Low 6.4-8.2 [facility] ([place]) Comment on above: Performed By: #### C MP, ANEU, LIPID, CBC, GFR, ADIFF ####[address] [place], [place] [address] Urea nitrogen [Mass/Vol] 10 mg/dL Normal 7-18 [facility] ([place]) Comment on above: Performed By: #### C MP, ANEU, LIPID, CBC, GFR, ADIFF ####[address] [place], [place] [address] LIPIDon 12-14-2023 Cholesterol [Mass/Vol] 214 mg/dL High 0-200 [facility] ([place]) Comment on above: Result Comment: Chol esterol Reference Interval: Less than 200 Desirable 200-239 Borderline high risk 240 and above High risk Performed By: #### C MP, ANEU, LIPID, CBC, GFR, ADIFF ####[address] [place], [place] [address] Cholesterol in HDL [Mass/Vol] 43 mg/dL Normal 40-60 [facility] ([place]) Comment on above: Performed By: #### C MP, ANEU, LIPID, CBC, GFR, ADIFF ####[address] [place], [place] [address] Cholesterol in LDL [Mass/Vol] 133 mg/dL High 0-130 [facility] ([place]) Comment on above: Performed By: #### C MP, ANEU, LIPID, CBC, GFR, ADIFF ####[address] [place], [place] [address] Triglyceride [Mass/Vol] 188 mg/dL High 0-150 [facility] ([place]) Comment on above: Result Comment: Trig lyceride Reference Interval: Less than 150 Normal 150-199 Borderline high risk 200-499 High risk 500 or higher Very high risk Performed By: #### C MP, ANEU, LIPID, CBC, GFR, ADIFF ####[address] [place], [place] [address] ALCOHOLon 07-25-2023 Ethanol [Mass/Vol] mg/dL Normal [facility] Comment on above: Result Comment: Note : Alcohol values performed at [facility] are performed on serum or plasma and reported in mg/dl, which is different then the state reporting units of g/dl which is performed on whole blood. Result reporting units are based on test methodology and are not interchangable. Performed By: #### 9 [id number], 955101, 441934, 029985, 118557 ####[facility] [address] [place] [address] Medical Director: Zafar Larios MD AUTO DIFFon 07-25-2023 Baso Count 0.06 x1000 Normal 0.00-0.20 [facility] Comment on above: Performed By: #### 9 851111, 933491, 071188, 253936, 218594 #### [facility] [address] [place] [address] International Student Advisor: Zafar Larios MD Basos % 0.8 % Normal [facility] Comment on above: Performed By: #### 9 812482, 821839, 354841, 505757, 320863 #### [facility] [address] [place] [address] International Student Advisor: Zafar Larios MD Eos Count 0.23 x1000 Normal 0.00-0.50 [facility] Comment on above: Performed By: #### 9 133044, 589701, 265564, 449692, 075952 #### [facility] [address] [place] [address] International Student Advisor: Zafar Larios MD Eosinophils/100 WBC (Bld) 2.9 % Normal [facility] Comment on above: Performed By: #### 9 438535, 581779, 459404, 334702, 379513 #### [facility] [address] [place] [address] International Student Advisor: Zafar Larios MD Lymph Count 1.68 x1000 Normal 1.20-4.80 [facility] Comment on above: Performed By: #### 9 271273, 053313, 250697, 823513, 432853 #### [facility] [address] [place] [address] International Student Advisor: Zafar Larios MD Lymphocytes/100 WBC (Bld) 21.2 % Normal [facility] Comment on above: Performed By: #### 9 056725, 311868, 181445, 002055, 332543 #### [facility] [address] [place] [address] International Student Advisor: Zafar Larios MD Childress Count 0.48 x1000 Normal 0.10-1.00 [facility] Comment on above: Performed By: #### 9 007286, 394807, 387119, 486159, 014757 #### [facility] [address] [place] [address] International Student Advisor: Zafar Larios MD Monocytes/100 WBC (Bld) 6.0 % Normal [facility] Comment on above: Performed By: #### 9 490639, 096171, 059627, 296222, 180148 #### [facility] [address] [place] [address] International Student Advisor: Zafar Larios MD Neutrophil Count (ANC) 5.48 x1000 Normal 1.40-8.80 [facility] Comment on above: Performed By: #### 9 850444, 965844, 010410, 907805, 946350 #### [facility] [address] [place] [address] International Student Advisor: Zafar Larios MD Neutrophils/100 WBC (Bld) 69.1 % Normal [facility] Comment on above: Performed By: #### 9 435837, 012785, 729658, 807941, 078038 #### [facility] [address] [place] [address] International Student Advisor: Zafar Larios MD COMPMETAojose m 07-25-2023 Albumin [Mass/Vol] 3.6 g/dL Normal 3.4-5.0 [facility] Comment on above: Performed By: #### 9 552366, 109546, 040574, 986210, 212729 #### [facility] [address] [place] [address] International Student Advisor: Zafar Larios MD Albumin/Globulin [Mass ratio] 1.4 {ratio} Normal [facility] Comment on above: Performed By: #### 9 892494, 714476, 282300, 958167, 822563 #### [facility] [address] [place], [place] [address] International Student Advisor: Zafar Larios MD Alk Phos 83 unit/L Normal 46-116 [facility] Comment on above: Performed By: #### 9 856644, 558830, 168792, 245749, 078761 #### [facility] [address] [place] [address] International Student Advisor: Zafar Larios MD Bilirubin [Mass/Vol] 0.80 mg/dL Normal 0.20-1.00 [facility] Comment on above: Result Comment: Use of this assay is not recommended for patients undergoing treatment with eltrombopag due to the potential for falsely elevated results. Performed By: #### 9 625648, 921782, 710195, 149017, 497006 #### [facility] [address] [place] [address] International Student Advisor: Zafar Larios MD Calcium [Mass/Vol] 8.7 mg/dL Normal 8.7-10.4 [facility] Comment on above: Performed By: #### 9 056143, 780395, 592434, 894648, 067157 #### [facility] [address] [place] [address] International Student Advisor: Zafar Larios MD Chloride [Moles/Vol] 108 mmol/L High 98-107 [facility] Comment on above: Performed By: #### 9 259974, 605566, 599043, 726752, 637126 #### [facility] [address] [place] [address] International Student Advisor: Zafar Larios MD CO2 [Moles/Vol] 24.0 mmol/L Normal 20.0-31.0 [facility] Comment on above: Performed By: #### 9 309605, 342265, 094892, 770019, 655721 #### [facility] [address] [place] [address] International Student Advisor: Zafar Larios MD Creatinine [Mass/Vol] 0.7 mg/dL Normal 0.5-0.8 [facility] Comment on above: Performed By: #### 9 178151, 459795, 106677, 834140, 788608 #### [facility] [address] [place] [address] International Student Advisor: Zafar Larios MD GFR AA >[address] [facility] Comment on above: Result Comment: Afri can Citizen [place] GFR Calc Medical judgement is necessary to [...] for drug dosing. Performed By: #### 9 955616, 129704, 483890, 223388, 268769 #### [facility] [address] [place] [address] International Student Advisor: Zafar Larios MD Globulin (S) [Mass/Vol] 2.5 g/dL Normal [facility] Comment on above: Performed By: #### 9 868835, 014801, 695858, 613067, 844448 #### [facility] [address] [place] [address] International Student Advisor: Zafar Larios MD Glomerular Filtration Rate >[address] [facility] Comment on above: Result Comment: Non- [...] for drug dosing. Performed By: #### 9 481395, 466955, 860143, 762431, 801732 #### [facility] [address] [place] [address] International Student Advisor: Zafar Larios MD Glucose [Mass/Vol] 100 mg/dL Normal 74-106 [facility] Comment on above: Performed By: #### 9 603435, 773083, 220266, 696781, 654947 #### [facility] [address] [place] [address] International Student Advisor: Zafar Larios MD GOT 17 unit/L Normal 15-37 [facility] Comment on above: Performed By: #### 9 261212, 022945, 379114, 057520, 165776 #### [facility] [address] [place] [address] International Student Advisor: Zafar Larios MD GPT 18 unit/L Normal 10-49 [facility] Comment on above: Performed By: #### 9 104868, 970760, 252442, 469983, 208247 #### [facility] [address] [place] [address] International Student Advisor: Zafar Larios MD Osmolality [Osmolality] 279 mosm/kg Normal 275-295 [facility] Comment on above: Performed By: #### 9 808768, 355386, 576379, 767256, 269074 #### [facility] [address] [place] [address] International Student Advisor: Zafar Larios MD Potassium [Moles/Vol] 4.1 mmol/L Normal 3.5-5.1 [facility] Comment on above: Performed By: #### 9 143891, 970380, 470427, 567651, 987431 #### [facility] [address] [place] [address] International Student Advisor: Zafar Larios MD Protein [Mass/Vol] 6.1 g/dL Normal 5.7-8.2 [facility] Comment on above: Result Comment: Tota l Protein results may be increased in patients receiving dextran as a blood volume developer prover upholstering Performed By: #### 9 379557, 153517, 881780, 607307, 871570 #### [facility] [address] [place] [address] International Student Advisor: Zafar Larios MD Sodium [Moles/Vol] 140 mmol/L Normal 135-145 [facility] Comment on above: Performed By: #### 9 199131, 150384, 398904, 671931, 977183 #### [facility] [address] [place] [address] International Student Advisor: Zafar Larios MD Urea nitrogen [Mass/Vol] 10 mg/dL Normal 9-23 [facility] Comment on above: Result Comment: - Ve nipuncture should occur prior to N-Acetyl Cysteine (NAC) or Metamizole (Sulpyrine) administration due to the potential for falsely depressed results. - Blood samples from some patients with monoclonal gammopathies may produce falsely elevated results Performed By: #### 9 286778, 706933, 134383, 040911, 661290 #### [facility] [address] [place] [address] International Student Advisor: Zafar Larios MD Urea nitrogen/Creatinine [Mass ratio] 14.3 mg/mg Normal [facility] Comment on above: Performed By: #### 9 429101, 170157, 568467, 886428, 354756 #### [facility] [address] [place] [address] International Student Advisor: Zafar Larios MD COVID-19 Molecular SWEDon SARS-CoV-2 (COVID-19) RNA MARYBETH+probe Ql (Unsp spec) Negative Normal [facility] Comment on above: Result Comment: This [...] Use Authorization and has been verified by [facility] laboratory. This test is only [...] sooner. This testing was performed in the [facility] laboratory located at [[place] [address]] Performed By: #### C [id number] #### [facility] [address] [place] [address] International Student Advisor: MD CORY Dowd Progress Note-ED Nurseon 07-25-2023 [...] IS CALM AND COOPERATIVE. CALIING REPORT TO [facility]. ADMIT [facility] S-4, DR. HERNADEZ. [facility] IS PREPARED FOR TRANSPORT. THE ETA ON TRANSPORT IS ON SCENE TO [facility]. Normal [facility] ED Adult Data - Texton 07-25 [...] Less than 5 years Preferred Verbal : [place] Preferred Written : [place] Julissa Crawford RN - 07/25/2023 14:04 EDT [...] PNED ; Probability: 0 ; Diagnosis Code: [id number] Procedure History ED Devices Present on Arrival [...] risk situation (congregated living, hemodialysis, infusion clinic, half-way, assisted living, residential, homeless jail, etc.)? : No Julissa Crawford RN - 07/25/2023 14:[address] [facility] ED Discharge Educationon ED Discharge Education Normal [facility] ED Emergency Severity Index Adult-Texton 07-25-2023 [...] Jiménez RN - 07/25/2023 12:[address] [facility] ED Nrsing Adlt Triage Sep Sc rning - Texton 07-25-2023 ED Nrsing Adlt Triage Sep Scrning - Text ED Nursing Adult Triage Sepsis Screening Tool Entered On: 07/25/2023 13:15 EDT Performed On: 07/25/2023 13:15 EDT by Julissa Crawford RN Adult Sepsis Screening Sepsis Infection Screening ED : Julissa Lantigua RN - 07/25/2023 13:[address] [facility] ED Patient Summaryon 023 ED Patient Summary [facility] Emergency Department Discharge Instructions [address] [place] [address] (Patient Copy) Name: SARAH RENTERIA : 1965 Allergies: sulfamethoxazole-trimethopr im Diagnosis: Visit Date: 07/25/2023 12:51:38 Current Date Time: 07/25/2023 16:49:57 Address: [address] [place] [address] [place] [address] Primary Care Provider: Name: [phone] -UnAvailable, Phone: Emergency Department Care Providers: Primary Physician: TANNER HERNADEZ MD Thank you for choosing [facility] for your emergency care. You are very important to us. Our goal is to demonstrate our high quality medical care, and provide you with a very good patient experience. You may receive a survey about our service. Please take the time to complete the survey and return it so we can continue to enhance our service. Thank you again for allowing the [facility] Emergency Department to care for your medical needs. If you have questions about your care or follow up information please contact us at [phone]. Follow-Up Instructions SARAH RENTERIA has been given these follow-up instructions: Patient Education Materials SARAH RENTERIA has been given the following patient education materials: BEFORE YOU LEAVE Set up your [facility] PreApps account! PreApps is a secure, online health management tool that connects you to portions of your hospital-based electronic medical record, allowing you to see test results, manage appointments, access discharge care instructions and much more. You can access PreApps from a computer, tablet or smartphone. Enrollment/registration is required. If you do not have a PreApps account, please provide us with an email address before you leave so that we may set up an account for you. New to PreApps! You may now securely connect some of the health management apps you use (e.g., fitness trackers, dietary trackers, etc.) to your health record in [facility] PreApps. This new feature provides expanded access to your health and wellness data, which will help you and your care team make informed decisions about your health care. If you are interested in using a health management diana not currently connected to PreApps, contact a Beam Worker at [phone] or [email or web address]. We will determine if the diana meets the technical requirements to connect to [facility] PreApps and assure the security of your private [...] health or substance abuse issue, please call [facility] at [phone] or the National Suicide Prevention Lifeline at . MYRA Amador RENEE, have received the follow-up provider(s) list, medication information and patient education materials/instructions and have verbalized understanding. Patient Signature Date Time Provider Signature Date Time Normal [facility] ED Physician Reporton 2022 ED Physician [...] that she has been hospitalized inpatient at [facility] in the past. She does have a [...] patient's previous records, no records in the [facility] system noted. Differential diagnoses considered include but are not limited to: SI, depression, anxiety Psychiatric screening labs obtained which were grossly unremarkable. EKG with normal QT/QTc, independently interpreted. Patient was pink slipped. She was evaluated by ED intake and assessment and was accepted to [facility]. Patient in agreement the plan, transported to [facility] in stable condition. Reexamination/Reevaluation Systolic Blood Pressure: 137 mmHg Diastolic Blood Pressure: 93 mmHg High Temperature Oral: 36.6 degC Respiratory Rate: 20 br/min Mean Arterial Pressure, Cuff: 104 mmHg SpO2: 96 % Oxygen Therapy: Room air Peripheral Pulse Rate: 65 bpm Weight Dosin.8 kg Discharge/Plan *Discharge Disposition Level of Care Order - Ordered -- 07/25/2023 15:56:00 EDT, [facility] Admit as Inpatient, MARICARMEN NARANJO, TANNER Assessment This Visit Diagnosis 1. 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 Normal [facility] ED Triage Adult-Texton 07-25 ED Triage [...] PNED ; Probability: 0 ; Diagnosis Code: [id number] (As Of: 07/25/2023 13:14:19 EDT) Vitals/Ht/Wt Temperature [...] Crawford RN - 07/25/2023 13:[address] [facility] HEMOon 07-25-2023 DIFF? No Normal [facility] Comment on above: Performed By: #### 9 [id number], 657639, 731437, 980863, 569753 #### [facility] [address] [place] [address] International Student Advisor: Zafar Larios MD Erythrocyte distribution width (RBC) [Ratio] 13.3 % Normal 11.5-14.5 [facility] Comment on above: Performed By: #### 9 [id number], 206076, 634081, 163793, 019928 #### [facility] [address] [place] [address] International Student Advisor: Zafar Larios MD Hematocrit (Bld) [Volume fraction] 40.7 % Normal 36.0-46.0 [facility] Comment on above: Performed By: #### 9 [id number], 104494, 428691, 461583, 519107 #### [facility] [address] [place] [address] International Student Advisor: Zafar Larios MD Hemoglobin (Bld) [Mass/Vol] 14.0 g/dL Normal 12.0-16.0 [facility] Comment on above: Performed By: #### 9 966642, 756136, 730616, 766020, 269509 #### [facility] [address] [place] [address] International Student Advisor: Zafar Larios MD Instr WBC 7.[address] [facility] Comment on above: Performed By: #### 9 752329, 589567, 581490, 002392, 822100 #### [facility] [address] [place] [address] International Student Advisor: Zafar Larios MD MCH (RBC) [Entitic mass] 31.8 pg Normal 27.0-34.0 [facility] Comment on above: Performed By: #### 9 734365, 806767, 640086, 551870, 217468 #### [facility] [address] [place] [address] International Student Advisor: Zafar Larios MD MCHC (RBC) [Mass/Vol] 34.3 g/dL Normal 32.0-37.0 [facility] Comment on above: Performed By: #### 9 074936, 389444, 672570, 977513, 801682 #### [facility] [address] [place] [address] International Student Advisor: Zafar Larios MD MCV (RBC) [Entitic vol] 92.6 fL Normal 80.0-100.0 [facility] Comment on above: Performed By: #### 9 452526, 747911, 965081, 250238, 769453 #### [facility] [address] [place] [address] International Student Advisor: Zafar Larios MD MDW 18.98 Normal 13.98-20.00 [facility] Comment on above: Result Comment: MDW [...] risk of Sepsis. Performed By: #### 9 132732, 359762, 290061, 034563, 913402 #### [facility] [address] [place] [address] International Student Advisor: Zafar Larios MD Nucleated RBC 0 /100WBC Normal [facility] Comment on above: Performed By: #### 9 369712, 612138, 045965, 135587, 796062 #### [facility] [address] [place] [address] International Student Advisor: Zafar Larios MD Platelet 237 x10 Normal 150-450 [facility] Comment on above: Performed By: #### 9 234649, 848887, 959085, 603684, 662723 #### [facility] [address] [place] [address] International Student Advisor: Zafar Larios MD Platelet mean volume (Bld) [Entitic vol] 9.9 fL Normal 7.4-10.4 [facility] Comment on above: Performed By: #### 9 938325, 550915, 310716, 740460, 127705 #### [facility] [address] [place] [address] International Student Advisor: Zafar Larios MD RBC 4.39 x10 Normal 4.20-5.40 [facility] Comment on above: Result Comment: Note : RBC morphology is normal unless otherwise stated. Evaluation performed only if differential is requested. Performed By: #### 9 156265, 318847, 775324, 988993, 409727 #### [facility] [address] [place], [place] [address] International Student Advisor: Zafar Larios MD WBC 7.9 x10 Normal 4.5-11.0 [facility] Comment on above: Performed By: #### 9 754957, 696186, 241534, 186556, 687610 #### [facility] [address] [place] [address] International Student Advisor: Zafar Larios MD MH/CD Triage-Texton 07-25-20 MH/CD Triage-Text MH/CD Triage Entered On: 07/25/2023 14:05 EDT Performed On: 07/25/2023 14:05 EDT by Perri Chirinos Demographics Referral Source : Emergency department [facility] Mode of Arrival : Car / Walk-In Admission Status : 72 hour hold Information Given By : Self Referral Facility Name : [facility] Phone Number of Facility : [phone] Person Referring : Perri Granados - 07/25/2023 [...] there things, anyone or anything (e.g., family, latter day, pain of ) that stopped you from [...] Assessed Risk Level : Moderate Didier KOCH [facility] 07/25/2023 15:21 EDT General Information Languages : [place] Islander Domestic Concerns : None Didier KO[facility] 07/25/2023 15:21 EDT Medical Clearance Screening Level of Consciousness : Alert Orientation : Oriented x 3 Affect/Behavior : Calm, Cooperative Hallucinations Present : None Didier KO[facility] 07/25/2023 15:21 EDT Orientation Memory Concentration Test Response to Current Year : Correct Response to Current Month : Correct Didier KO[facility] 07/25/2023 15:21 EDT Allergy MH/CD Medication Additional Details : See medication list Didier KO[facility] 07/25/2023 15:21 EDT (As Of: 07/25/2023 15:24:53 EDT) Allergies (Active) sulfamethoxazole-trimethopr im Estimated Onset Date: Unspecified ; Created By: Julissa Crawford RN; Reaction Status: Active ; Category: Drug ; Substance: sulfamethoxazole-trimethopr (more content not included)... Normal 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 THY GPon 07-25-2023 TSH Qn 1.67 m[IU]/L Normal 0.55-4.78 [facility] Comment on above: Result Comment: - [...] not be tested Performed By: #### 9 [id number], 358865, 879227, 991343, 713080 ####[facility] [address] [place] [address] Medical Director: Zafar Larios MD Free T4 [Mass/Vol] 1.20 ng/dL Normal 0.89-1.76 [facility] Comment on above: Result Comment: - Th e anticonvulsant drug phenytoin may interfere with total and free T4 levels due to competition for TBG binding sites - Free T4 values may be decreased in patients with non-thyroidal conditions and in patients taking carbamazepine Performed By: #### 9 743118, 890774, 981190, 909460, 726917 ####[facility] [address] [place], [place] [id number] Medical Director: Zafar Larios MD U DOA WITH FENTANYLon 2022 Amphetamines, U Negative Normal [facility] Comment on above: Result Comment: Urin [...] non-medical purposes. Urine for Drugs of Abuse [place] Levels: Barbiturate 200 ng/ml PCP 25 ng/ml Cocaine 300 ng/ml Opiates 2000 ng/ml Amphetamines 1000 ng/ml Benzodiazepines 200 ng/ml THC 50 ng/ml EXTC 500 ng/ml Performed By: #### C [id number] ####[facility] [address] [place] [address] Medical Director: Zafar Larios MD Barbituates, [facility] Comment on above: Performed By: #### C [id number] ####[facility] [address] [place] [address] Medical Director: Zafar Larios MD Benzodiazepines, [facility] Comment on above: Result Comment: - A [...] a limited extent Performed By: #### C [id number] ####[facility] [address] [place] [address] [id number]) [phone] Director: Zafar Larios MD Cocaine, [facility] Comment on above: Performed By: #### C [id number] ####[facility] [address] [place] [address] Medical Director: Zafar Larios MD Ecstasy, [facility] Comment on above: Performed By: #### C [id number] ####[facility] [address] [place] [address] Medical Director: Zafar Larios MD Fentanyl, [facility] Comment on above: Result Comment: Urin markus [...] be used for non-medical purposes. Urine Fentanyl [place] Level: 1 ng/ml Performed By: #### C [id number] ####[facility] [address] [place] [address] Medical Director: Zafar Larios MD Opiates, U Negative Normal [facility] Comment on above: Performed By: #### C [id number] ####[facility] [address] [place] [address] Medical Director: Zafar Larios MD PCP, U Negative Normal [facility] Comment on above: Performed By: #### C [id number] ####[facility] [address] [place] [address] Medical Director: Zafar Larios MD THC, U Positive Normal [facility] Comment on above: Performed By: #### C [id number] ####[facility] [address] [place] [address] Medical Director: Zafar Larios MD UAon 07-25-2023 Appearance, U Clear Normal [facility] Comment on above: Performed By: #### 1 84056 #### [facility] [address] [place] [address] International Student Advisor: Zafar Larios MD Bilirubin, U Negative Normal Negative [facility] Comment on above: Performed By: #### 1 11479 #### [facility] [address] [place] [address] International Student Advisor: Zafar Larios MD Blood, U Negative Normal Negative [facility] Comment on above: Performed By: #### 1 83755 #### [facility] [address] [place] [address] International Student Advisor: Zafar Larios MD Color, U Yellow Normal [facility] Comment on above: Performed By: #### 1 87892 #### [facility] [address] [place] [address] 78796 International Student Advisor: Zafar Larios MD Glucose Qual, U Negative Normal Negative [facility] Comment on above: Performed By: #### 1 15229 #### [facility] [address] [place] [address] 7[address] International Student Advisor: Zafar Larios MD Ketones, U Negative Normal Negative [facility] Comment on above: Performed By: #### 1 80932 #### [facility] [address] [place], [place] [address]30 International Student Advisor: Zafar Larios MD Leukocyte Esterase, U Trace Abnormal Negative [facility] Comment on above: Performed By: #### 1 66437 #### [facility] [address] [place], [place] [address] International Student Advisor: Zafar Larios MD Nitrite, U Negative Normal Negative [facility] Comment on above: Performed By: #### 1 54790 #### [facility] [address] [place], [place] [address]30 International Student Advisor: Zafar Larios MD pH, U 6.0 Normal 4.5-8.0 [facility] Comment on above: Performed By: #### 1 51965 #### [facility] [address] [place], [place] [address] International Student Advisor: Zafar Larios MD Protein, U Negative Normal Negative [facility] Comment on above: Performed By: #### 1 99990 #### [facility] [address] [place], [place] [address] International Student Advisor: Zafar Larios MD Specific [place], U 1.010 Normal 1.001-1.035 [facility] Comment on above: Performed By: #### 1 04238 #### [facility] [address] [place] [address] International Student Advisor: Zafar Larios MD Squamous Epithelial Cells, U 1 #/HPF Normal [facility] Comment on above: Performed By: #### 1 87570 #### [facility] [address] [place] [address] International Student Advisor: Zafar Larios MD U MICRO Indicated Normal [facility] Comment on above: Performed By: #### 1 26385 #### [facility] [address] [place] [address] International Student Advisor: Zafar Larios MD Urobilinogen Qual, U 0.2 EU/dl Normal 0.1-1.0 mg/dl [facility] Comment on above: Result Comment: EU/d l and mg/dl are equivalent units. Performed By: #### 1 26901 #### [facility] [address] [place] [address] International Student Advisor: Zafar Larios MD WBC/HPF, U 1 #/HPF Normal 0-5 [facility] Comment on above: Performed By: #### 1 60142 #### [facility] [address] [place], [place] [address] International Student Advisor: Zafar Larios MD LABORATORYOrdered By: SYSTEM SYSTEM [...] Culture Urine No growth at 48 hours. [facility] Work Phone: LABORATORYOrdered By: Tung Lopez on [...] HbA1c (Bld) [Mass fraction] 97 mg/dL Normal [facility] Comment on above: Performed By: #### U RIN2 #### [address] [address] HbA1c (Bld) [Mass fraction] 5.0 % Normal 4.0-5.6 [facility] Comment on above: Result Comment: [place] Diabetes Association guidelines indicate that the patients with HgA1c in the range 5.7 ? 6.4% are at increased risk for development of diabetes, and intervention by lifestyle modification may be beneficial. HgA1c greater or equal to 6.5% is considered diagnostic of diabetes. Performed By: #### U RIN2 #### [address] [place], [place] [address] Lipid Profile, Basicon 08-05 Cholesterol [Mass/Vol] 237 mg/dL High 0-199 [facility] Comment on above: Result Comment: Tota l Cholesterol < 200 mg/dL, Desirable Total Cholesterol 200 to 239 mg/dL, Borderline high Total Cholesterol > 239 mg/dL, High Performed By: #### U RIN2 #### [address] [address] Cholesterol in HDL [Mass/Vol] 56 mg/dL Normal [facility] Comment on above: Result Comment: Refe rence Range: HDL Cholesterol 40- 59 mg/dL, Acceptable HDL Cholesterol >59 mg/dL, High; Negative risk factor for coronary heart disease HDL Cholesterol <40 mg/dL, Low; Positive risk factor for coronary heart disease Performed By: #### U RIN2 #### [address] [address] Cholesterol in LDL [Mass/Vol] 159 mg/dL High 0-99 [facility] Comment on above: Result Comment: LDL Cholesterol < 100 mg/dL, Optimal LDL Cholesterol 100 to 129 mg/dL, Near optimal/above optimal LDL Cholesterol 130 to 159 mg/dL, Borderline high LDL Cholesterol 160 to 189 mg/dL, High LDL Cholesterol > 189 mg/dL, Very high Secondary prevention optimal LDL Cholesterol levels are recommended to be < 70 mg/dL Performed By: #### U RIN2 #### [address] [address] Cholesterol in LDL/Cholesterol in HDL [Mass ratio] 2.84 High 0.00-2.53 [facility] Comment on above: Performed By: #### U RIN2 #### [address] [address] Cholesterol.total/C holesterol in HDL [Mass ratio] 4.23 {ratio} Normal 0.00-5.09 [facility] Comment on above: Performed By: #### U RIN2 #### [address] [address] Non-HDL Cholesterol 181 mg/dL High 0-129 [facility] Comment on above: Result Comment: Non [...] mg/dL Performed By: #### U RIN2 #### [place] [address] Triglyceride Blood 110 mg/dL Normal 0-149 [facility] Comment on above: Result Comment: Trig lycerides < 150 mg/dL, Normal Triglycerides 150 to 199 mg/dL, Borderline high Triglycerides 200 to 499 mg/dL, High Triglycerides > 499 mg/dL, Very high Performed By: #### U RIN2 #### [place] [address] VLDL Cholesterol 22 mg/dL Normal 0-29 [facility] Comment on above: Performed By: #### U RIN2 #### [place] [address] Acetaminophenon 08-04-2020 Acetaminophen [Mass/Vol] <5 Low 10-30 [facility] Comment on above: Result Comment: Toxi c >150 ug/mL 4 hours post ingestion. The Bianca Waggoner nomogram can be used to estimate the probability of hepatotoxicity via the relationship of plasma acetaminophen concentration to the post ingestion interval. (Aicha. Pediatrics. 1975. 55:871 to 876 and Bianca et al. [place] [employer] Med. 1981. 141:380 to 385). Reference ranges and high/low indicator flags are provided as general guidelines only. The treating physician must determine appropriate target levels/dosing based on the specific clinical situation. Performed By: #### A CTM2 #### [place] [address] Alcohol, Serumon 08-04-2020 Alcohol, Serum <11.0 Normal < 11 [facility] Comment on above: Performed By: #### A LCO3 #### [place] [address] Comprehensive Metabolic Pane tiki 08-04-2020 Albumin [Mass/Vol] 4.4 g/dL Normal 3.9-4.9 [facility] Comment on above: Performed By: #### C MP #### [facility] [address] [place] [address] ALP [Catalytic activity/Vol] 70 U/L Normal 34-123 [facility] Comment on above: Performed By: #### C MP #### [facility] [address] [place] [address] ALT [Catalytic activity/Vol] 17 U/L Normal 7-38 [facility] Comment on above: Performed By: #### C MP #### [facility] [address] [place] [address] Anion gap [Moles/Vol] 10 mmol/L Normal 9-18 [facility] Comment on above: Performed By: #### C MP #### [facility] [address] [place] [address] AST [Catalytic activity/Vol] 19 U/L Normal 13-35 [facility] Comment on above: Performed By: #### C MP #### [facility] [address] [place] [address] Bilirubin [Mass/Vol] 0.4 mg/dL Normal 0.2-1.3 [facility] Comment on above: Performed By: #### C MP #### [facility] [address] [place] [address] Calcium [Mass/Vol] 9.5 mg/dL Normal 8.5-10.2 [facility] Comment on above: Performed By: #### C MP #### [facility] [address] [place] [address] Chloride [Moles/Vol] 104 mmol/L Normal 97-105 [facility] Comment on above: Performed By: #### C MP #### [facility] [address] [place] [address] CO2 Blood 25 mmol/L Normal 22-30 [facility] Comment on above: Performed By: #### C MP #### [facility] [address] [place] [address] Creatinine [Mass/Vol] 0.57 mg/dL Low 0.58-0.96 [facility] Comment on above: Performed By: #### C MP #### [facility] [address] [place], [place] [address] Glucose [Mass/Vol] 85 mg/dL Normal 74-99 [facility] Comment on above: Result Comment: The [place] Diabetes Association (ADA) provides guidance for cutoff [...] Standards of Medical Care in Diabetes 2016; [place] Diabetes Association. Diabetes Care. 2016;39(Suppl 1). Performed By: #### C MP #### [address] [address] Potassium [Moles/Vol] 3.8 mmol/L Normal 3.7-5.1 [facility] Comment on above: Performed By: #### C MP #### [address] [address] Protein [Mass/Vol] 6.8 g/dL Normal 6.3-8.0 [facility] Comment on above: Performed By: #### C MP #### [address] [address] Sodium [Moles/Vol] 139 mmol/L Normal 136-144 [facility] Comment on above: Performed By: #### C MP #### [facility] [address] [place], [place] [address] Urea nitrogen [Mass/Vol] 12 mg/dL Normal 7-21 [facility] Comment on above: Performed By: #### C MP #### [facility] [address] [place], [place] [address] Hemogram/Diffon 08-04-2020 Abs Immature Grans 0.05 thou/cmm Normal 0.00-0.05 [facility] Comment on above: Performed By: #### C BCD1 #### [facility] [address] [place] [address] Abs Neut (ANC) 6.12 thou/cmm Normal 1.56-6.13 [facility] Comment on above: Performed By: #### C BCD1 #### [facility] [address] [place] [address] Abs. Baso 0.06 thou/cmm Normal 0.01-0.08 [facility] Comment on above: Performed By: #### C BCD1 #### [facility] [address] [place] [address] Abs. [place] 0.60 thou/cmm Normal 0.27-0.70 [facility] Comment on above: Performed By: #### C BCD1 #### [facility] [address] [place] [address] Basophils/100 WBC (Bld) 0.6 % Normal [facility] Comment on above: Performed By: #### C BCD1 #### [facility] [address] [place] [address] Eosinophils (Bld) [#/Vol] 0.20 thou/cmm Normal 0.00-0.31 [facility] Comment on above: Performed By: #### C BCD1 #### [facility] [address] [place] [address] Eosinophils/100 WBC (Bld) 2.0 % Normal [facility] Comment on above: Performed By: #### C BCD1 #### [facility] [address] [place] [address] Erythrocyte distribution width (RBC) [Ratio] 12.4 % Normal 11.7-14.4 [facility] Comment on above: Performed By: #### C BCD1 #### [facility] [address] [place] [address] Hematocrit (Bld) [Volume fraction] 43.4 % Normal 34.1-44.9 [facility] Comment on above: Performed By: #### C BCD1 #### [facility] [address] [place] [address] Hemoglobin (Bld) [Mass/Vol] 14.5 g/dL Normal 11.2-15.7 [facility] Comment on above: Performed By: #### C BCD1 #### [facility] [address] [place] [address] Immature Grans 0.50 % Normal [facility] Comment on above: Performed By: #### C BCD1 #### [facility] [address] [place] [address] Lymphocytes (Bld) [#/Vol] 3.03 thou/cmm Normal 1.18-3.74 [facility] Comment on above: Performed By: #### C BCD1 #### [facility] [address] [place] [address] Lymphocytes/100 WBC (Bld) 30.1 % Normal [facility] Comment on above: Performed By: #### C BCD1 #### [place] [address] MCH (RBC) [Entitic mass] 31.7 pg Normal 25.6-32.2 [facility] Comment on above: Performed By: #### C BCD1 #### [facility] [address] [place] [address] MCHC (RBC) [Mass/Vol] 33.4 % Normal 31.6-34.8 [facility] Comment on above: Performed By: #### C BCD1 #### [place] [address] MCV (RBC) [Entitic vol] 94.8 fL Normal 79.4-94.8 [facility] Comment on above: Performed By: #### C BCD1 #### [facility] [address] [place] [address] Monocytes/100 WBC (Bld) 6.0 % Normal [facility] Comment on above: Performed By: #### C BCD1 #### [facility] [address] [place] [address] Platelet mean volume (Bld) [Entitic vol] 12.5 fL High 9.4-12.3 [facility] Comment on above: Performed By: #### C BCD1 #### [address] [place], [place] [address] Platelets (Bld) [#/Vol] 252 thou/cmm Normal 182-369 [facility] Comment on above: Performed By: #### C BCD1 #### [facility] [address] [place] [id number] RBC (Bld) [#/Vol] 4.58 mil/cmm Normal 3.93-5.22 [facility] Comment on above: Performed By: #### C BCD1 #### [facility] [address] [place] [address] RDW SD 42.5 fl Normal 36.4-46.3 [facility] Comment on above: Performed By: #### C BCD1 #### [facility] [address] [place] [address] Seg Neutrophil 60.8 % Normal [facility] Comment on above: Performed By: #### C BCD1 #### [facility] [address] [place] [address] WBC (Bld) [#/Vol] 10.06 thou/cmm High 3.98-10.04 [facility] Comment on above: Performed By: #### C BCD1 #### [place] [address] Goltry Serumon 08-04-2020 Goltry Serum <0.1 Low 0.6-1.2 [facility] Comment on above: Result Comment: Refe rence ranges and high/low indicator flags are provided as general guidelines only. The treating physician must determine appropriate target levels/dosing based on the specific clinical situation. Performed By: #### L ITH2 #### [facility] [address] [place] [address] MDRD GFRon 08-04-2020 GFR/1.73 sq M predicted among non-blacks MDRD (S/P/Bld) [Vol rate/Area] mL/min/{1.73_m2} Normal >60mL/min/1. 73m2 [facility] Comment on above: Result Comment: If t he patient is , multiply the result by 1.210. Performed By: #### G FR #### [facility] [address] [place] [address] Rapid, COVID 19on 08-04-2020 Rapid, COVID 19 Negative Normal Negative [facility] Comment on above: Result Comment: This test has been authorized by the FDA under an Emergency Use Authorization (EUA). Performed By: #### R COVD #### [facility] [address] [place] [address] Salicylateon 08-04-2020 Salicylate <1.0 Low 3.0-30.0 [facility] Comment on above: Result Comment: The therapeutic range varies and has been reported to be 3.0 to 10.0 mg/dL for anti-pyretic/analgesic conditions and 15.0 to 30.0 mg/dL for anti-inflammatory/rheumatic fever conditions. Ranges published by the instrument certified histologic technician. Reference ranges and high/low indicator flags are provided as general guidelines only. The treating physician must determine appropriate target levels/dosing based on the specific clinical situation. Performed By: #### S AL #### [place] [address] Urinalysis Routineon 020 Bacteria LM.HPF (Urine sed) [#/Area] NONE Normal None [facility] Comment on above: Performed By: #### U RIN2 #### [facility] [address] [place] [address] Ep Cells Urine 0.5 /hpf Normal 0.0-5.0 [facility] Comment on above: Performed By: #### U RIN2 #### [place] [address] Hyaline Cast 0.0 /lpf Normal 0.0-1.0 [facility] Comment on above: Performed By: #### U RIN2 #### [place] [address] RBC LM.HPF (Urine sed) [#/Area] 0.8 /[HPF] Normal 0.0-5.0 [facility] Comment on above: Performed By: #### U RIN2 #### [place] [address] WBC LM.HPF (Urine sed) [#/Area] 1.9 /[HPF] Normal 0.0-5.0 [facility] Comment on above: Performed By: #### U RIN2 #### [facility] [address] [place] [address] Appearance (U) CLEAR Normal [facility] Comment on above: Performed By: #### U RIN2 #### [place] [address] Bilirubin (U) [Mass/Vol] Negative Normal Negative [facility] Comment on above: Performed By: #### U RIN2 #### [facility] [address] [place] [address] Color (U) YELLOW Normal [facility] Comment on above: Performed By: #### U RIN2 #### [facility] [address] [place] [address] Glucose Ql (U) Negative Normal Negative [facility] Comment on above: Performed By: #### U RIN2 #### [place] [address] Hemoglobin,Urine Negative Normal Negative [facility] Comment on above: Performed By: #### U RIN2 #### [place] [address] Ketone Urine Negative Normal Negative [facility] Comment on above: Performed By: #### U RIN2 #### [place] [address] Leukocytes Esterase Negative Normal Negative [facility] Comment on above: Performed By: #### U RIN2 #### [place] [address] Nitrites Urine Negative Normal Negative [facility] Comment on above: Performed By: #### U RIN2 #### [place] [address] pH (U) 6.5 [pH] Normal 5.0-8.0 [facility] Comment on above: Performed By: #### U RIN2 #### [place] [address] Protein (U) [Mass/Vol] Negative Normal Negative [facility] Comment on above: Performed By: #### U RIN2 #### [facility] [address] [place] [address] Specific [place], Ur 1.018 Normal 1.005-1.030 [facility] Comment on above: Performed By: #### U RIN2 #### [facility] [address] [place] [address] Urobilinogen,Ur 0.2 EU/dL Normal 0.2-1.0 [facility] Comment on above: Performed By: #### U RIN2 #### [facility] [address] [place] [address] Urine Drug Screenon 08-04-20 20 Urine Alcohol <11 Normal 0-11 [facility] Comment on above: Performed By: #### U DRG3 #### [facility] [address] [place] [address] Urine Amphetamine Negative Normal NEGATIVE [facility] Comment on above: Performed By: #### U DRG3 #### [facility] [address] [place] [address] Urine Barbiturates Negative Normal NEGATIVE [facility] Comment on above: Performed By: #### U DRG3 #### [facility] [address] [place] [address] Urine Benzodiazepine Negative Normal NEGATIVE [facility] Comment on above: Performed By: #### U DRG3 #### [facility] [address] [place] [address] Urine Cocaine Metab Negative Normal NEGATIVE [facility] Comment on above: Performed By: #### U DRG3 #### [facility] [address] [place] [address] Urine Opiates Negative Normal NEGATIVE [facility] Comment on above: Performed By: #### U DRG3 #### [facility] [address] [place] [address] Urine Oxycodone Negative Normal NEGATIVE [facility] Comment on above: Performed By: #### U DRG3 #### [facility] [address] [place] [address] Urine PCP Negative Normal NEGATIVE [facility] Comment on above: Result Comment: Test [...] the same specimen through the laboratory at ([phone]) if contacted within 48 hours of initial 1. Substance Abuse and Mental Health Services Administration (2012). Clinical Drug Testing in Primary Care Technical Assistance Publication Series 32. Department of Health and Human Services, [place], p.10. Performed By: #### U DRG3 #### [place] [address] Urine THC Negative Normal NEGATIVE [facility] Comment on above: Performed By: #### U DRG3 #### [address] [address] CR Chest PA/LATon 11-16-2017 CR Chest PA/LAT Patient Name: SARAH RENTERIA Diagnostic Radiology Exam Date/Time 11/16/2017 11:28:47 EST Exam CR Chest PA/LAT Ordering Physician DORAN DO, MARTIN Accession Number [id number] CPT4 Codes 86260 () Reason For Exam POSITIVE TB SKIN [...] Transcribed Date and Time: 11/16/2017 12:05 Normal [facility] Encounters Encounter Date Encounter Type Care Provider Facility Start: 04-08-2025 End: 04-08-2025 ambulatory Agapito Jiménez Facility:[facility] Start: 03-20-2025 End: 03-20-2025 ambulatory Agapito Jiménez Facility:[facility] Start: 03-12-2025 End: 03-12-2025 ambulatory Agapito Jiménez Facility:[facility] Start: 03-01-2025 End: 03-01-2025 ambulatory Barbara Acostai Facility:[facility] Start: 01-29-2025 End: 01-29-2025 ambulatory Agapito Jiménez Facility:[facility] Start: 01-21-2025 End: 01-21-2025 ambulatory Agapito Jiménez Facility:[facility] Start: 01-04-2025 Encounter for other preprocedural examination Dexter Guerra [facility] Start: 01-01-2025 End: 01-01-2025 ambulatory Agapito Jiménez Facility:[facility] Start: 12-17-2024 ambulatory Agapito Jiménez [facility] Start: 12-17-2024 End: 12-19-2024 Evaluation and management of inpatient Agapito Jiménez Facility:[facility] Start: 12-17-2024 ambulatory Agapito Jiménez [facility] Start: 12-13-2024 End: 12-13-[address] AGAPITO JIMÉNEZ DO Facility:[facility] Start: 12-13-2024 End: 12-13-[address] AGAPITO JIMÉNEZ DO [facility] Start: 12-05-2024 End: 12-05-2024 ambulatory Agapito Jiménez Facility:[facility] Start: 12-02-2024 End: 12-03-2024 Emergency department patient visit Agapito Jiménez Facility:[facility] Start: 11-23-2024 End: 11-23-2024 ambulatory Agapito Jiménez Facility:[facility] Start: 11-22-2024 End: 11-26-[address] AGAPITO JIMÉNEZ DO Facility:[facility] Start: 11-22-2024 End: 11-26-[address] AGAPITO JIMÉNEZ DO [facility] Start: 11-08-2024 End: 11-08-2024 ambulatory Agapito Jiménez Facility:[facility] Start: 11-04-2024 End: 11-04-2024 Emergency department patient visit Agapito Jiménez Facility:[facility] Start: 11-02-2024 End: 11-02-2024 ambulatory Agapito Jiménez Facility:[facility] Start: 10-25-2024 End: 10-25-2024 ambulatory Agapito Jiménez Facility:[facility] Start: 10-17-2024 End: 10-17-2024 ambulatory Agapito Jiménez Facility:[facility] Start: 10-11-2024 End: 10-11-[address] AGAPITO JIMÉNEZ DO Facility:[facility] Start: 10-11-2024 End: 10-11-[address] AGAPITO JIMÉNEZ DO [facility] Start: 10-11-2024 End: 10-11-2024 ambulatory Agapito Jiménez Facility:[facility] Start: 09-06-2024 End: 09-06-[address] AGAPITO JIMÉNEZ DO Facility:[facility] Start: 09-06-2024 End: 09-06-[address] AGAPITO JIMÉNEZ DO [facility] Start: 09-03-2024 End: 09-03-2024 ambulatory Neymar Croft Facility:[facility] Start: 08-30-2024 End: 08-30-2024 ambulatory Agapito Jiménez Facility:[facility] Start: 08-06-2024 ambulatory Luna Renée [facility] Facility :[facility] Start: 07-28-2024 ambulatory Minal [facility]ralesty:[facility] Start: 07-27-2024 End: 07-29-2024 ambulatory [facility] Facility:[facility] Start: 07-17-2024 End: 07-17-[address] AGAPITO JIMÉNEZ DO Facility:[facility] Start: 07-17-2024 End: 07-17-[address] AGAPITO JIMÉNEZ DO [facility] Start: 06-29-[address] AGAPITO JIMÉNEZ DO Facili ty:[facility] Start: 06-22-2024 End: 06-22-[address] AGAPITO JIMÉNEZ DO Facility:[facility] Start: 06-22-2024 End: 06-22-[address] AGAPITO JIMÉNEZ DO [facility] Start: 06-04-2024 End: 06-04-[address] AGAPITO JIMÉNEZ DO Facility:[facility] Start: 06-04-2024 End: 06-04-[address] AGAPITO JIMÉNEZ DO [facility] Start: 05-29-2024 End: 05-29-2024 ambulatory ELIDIA MACK FURRIER APPRENTICE-DOOR SLINGER Facility:[facility] Start: 05-29-2024 End: 05-29-2024 Patient encounter procedure ELIDIA MACK FURRIER APPRENTICE-DOOR SLINGER [facility] Start: 05-11-2024 End: 05-11-2024 ambulatory Homar Friend Facility:[facility] Start: 05-07-2024 ambulatory OZ JERI FURRIER APPRENTICE-CN P Facility:[facility] Start: 05-07-2024 End: 05-11-2024 Outreach Lab OZ JERI FURRIER APPRENTICE-DOOR SLINGER [facility] Start: 05-07-2024 End: 05-07-2024 ambulatory OZ JERI FURRIER APPRENTICE-DOOR SLINGER Facility:[facility] Start: 05-07-2024 End: 05-07-2024 Patient encounter procedure OZ JERI FURRIER APPRENTICE-DOOR SLINGER [facility] Start: 04-24-2024 End: 04-24-2024 ambulatory Homar Friend Facility:[facility] Start: 04-24-2024 End: 04-24-2024 ambulatory [facility] Friend Facility:[facility] Start: 04-16-2024 Telephone encounter Gayathri Wattsjose m Bowden FURRIER APPRENTICE.DOOR SLINGER Work Phone: [facility] Comment on above: New Patient Start: 04-12-2024 Telephone encounter Gayathri Wattsjose m Bowden FURRIER APPRENTICE.DOOR SLINGER Work Phone: [facility] [place] Comment on above: New Patient Start: 12-14-2023 End: 12-14-[address] AGAPITO JIMÉNEZ DO Facility:[facility] Start: 07-25-2023 Evaluation and management of inpatient SALINA PHILLIPS DOOR SLINGER Facility:[id number] Start: 03-18-2023 End: 03-18-2023 Patient encounter procedure AGUS PATTEN MD [facility] Start: 01-13-2023 End: 01-17-[address] AGAPITO JIMÉNEZ DO [facility] Start: 01-05-2022 End: 01-05-2022 Patient encounter procedure INO MCFARLANE MD [facility] Start: 12-08-2021 End: 12-12-[address] AGAPITO JIMÉNEZ DO [facility] Start: 10-15-2021 End: 10-15-[address] AGAPITO JIMÉNEZ DO [facility] Start: 08-26-2021 End: 08-26-2021 Patient encounter procedure MEL JOSHUA FURRIER APPRENTICE-DOOR SLINGER [facility] Start: 08-04-2020 End: 08-04-2020 Admission to establishment Stefania Hoang [facility] Start: 08-04-2020 Patient encounter procedure Stefania Baugh) [facility] Comment on above: Psychiatric Problem Start: 11-16-2017 Ambulatory Zafar Doran [facility] Procedures Date Procedure Procedure Detail Performing Clinician Start: 04-29-2024 Ultrasonography ELIDIA MACK FURRIER APPRENTICE-Estrogen Gene Test Comment on above: liver and spleen Start: 03-21-2023 Electrocardiographic monitor and recorder, device (physical object) OZ WILCOX FURRIER APPRENTICE-DOOR SLINGER Comment on above: 03/15/23 - 03/21/23 1. Sinus rhythm with 1% PAC burden. 2. A single 6 beat symptomatic episode of SVT. 3. Some symptomatic recordings of skipped beat or heart racing corresponded to PACs versus brief SVT. Majority of the symptomatic recordings corresponded to sinus rhythm versus sinus tachycardia. Start: 03-18-2023 Cardiovascular stress testing OZ WILCOX FURRIER APPRENTICE-DOOR SLINGER Comment on above: 1. No evidence of [...] DR AGAPITO JIMÉNEZ DO Comment on above: [facility] Start: 05-26-2021 Injection into shoulder joint MEL JOSHUA FURRIER APPRENTICE-DOOR SLINGER Comment on above: Dr. Lopez Start: 05-12-2021 Injection into facet joint of lumbar spine using fluoroscopic guidance MEL JOSHUA FURRIER APPRENTICE-DOOR SLINGER Start: 01-27-2021 Local anesthetic lum bar facet joint nerve block MEL JOSHUA FURRIER APPRENTICE-DOOR SLINGER Start: 11-07-2020 Shoulder injection SAIDA JOSHUA FURRIER APPRENTICE-DOOR SLINGER Start: 10-06-2020 Local anesthetic lum bar facet joint nerve block MEL JOSHUA FURRIER APPRENTICE-DOOR SLINGER Comment on above: L4-L5, L5-S1 Start: 09-25-2020 Cardiac catheterization MEL JOSHUA FURRIER APPRENTICE-DOOR SLINGER Start: 08-04-2020 Lipid 1996 panel - S jose eduardo or Plasma Gayathri Bowden FURRIER APPRENTICE.DOOR SLINGER Work Phone: Start: 07-18-2020 Echocardiography KAZ JOSHUA FURRIER APPRENTICE-DOOR SLINGER Comment on above: EF 60-65%. 2+ MR Start: 07-18-2020 Electrocardiographic monitor and recorder, device (physical object) MEL JOSHUA FURRIER APPRENTICE-DOOR SLINGER Comment on above: Rare PAC's and PVC's . Short duration of SVT without any clear evidence of atrial fibrillation. No significant pauses were noted. No ventricular tachycardia episodes were noted. Start: 03-07-2020 Colonoscopy MEL WI TMER FURRIER APPRENTICE-DOOR SLINGER Start: 11-07-2017 Knee region structur e (body structure) MEL JOSHUA FURRIER APPRENTICE-DOOR SLINGER Comment on above: right arthroscopic Start: 04-26-2014 Echocardiography KAZ JOSHUA FURRIER APPRENTICE-DOOR SLINGER Comment on above: EF 60% Start: 04-26-2014 Stress echocardiography MEL JOSHUA FURRIER APPRENTICE-DOOR SLINGER Start: 04-24-2014 Colonoscopy Gayathri forman FURRIER APPRENTICE.DOOR SLINGER Work Phone: Start: 07-28-2012 Mammography Stefania Avilez g Start: 11-07-2011 Tonsillectomy MELJED WINKLER FURRIER APPRENTICE-DOOR SLINGER Start: 11-07-2011 Uvula palatina struc ture (body structure) MEL JOSHUA FURRIER APPRENTICE-DOOR SLINGER Comment on above: uvulaplasty Start: 11-07-1971 Ureteric structure ( body structure) MEL DIAZMER FURRIER APPRENTICE-DOOR SLINGER Comment on above: left, second ureter relocated on bladder Back structure, excl uding neck (body structure) OZ WILCOX FURRIER APPRENTICE-DOOR SLINGER Comment on above: had dorsal stimulato r put in by Dr. Schaffer Plan of Treatment Date Care Activity Detail Author Start: 08-04-2025 Lipid panel Lipid Screening [facility] Start: 08-04-2025 LIPID SCREEN LIPID SCREEN [facility] Start: 07-08-2024 Influenza vaccination Influenz a Vaccine (Season Ended) [facility] Start: 11-07-2023 Behavioral Health Screening Behavioral Health Screening [facility] Start: 08-04-2023 DIABETES SCREEN DIABETES SCREEN [facility] Start: 08-04-2023 Diabetes Screening Diabetes Screenin g [facility] Start: 07-08-2023 Covid-19 Vaccine ( season) Covid-19 Vaccine ( season) [facility] Start: 05-09-2017 HPV TESTING HPV TESTING [facility] Start: 05-09-2017 PAP TESTING PAP TESTING [facility] Start: 05-09-2017 Screening for malign ant neoplasm of cervix [facility] Start: 04-24-2015 Screening for malign ant neoplasm of colon [facility] Start: 2015 SHINGRIX VACCINE (1 of 2) OLSEN GRIX VACCINE (1 of 2) [facility] Start: 2015 Tuberculosis screening COLOREC AMIRAH CANCER SCREENING,SEE MODIFIER [facility] Start: 07-28-2013 Mammography MAMMOGRAM [facility] Start: 07-28-2013 Screening for malign ant neoplasm of breast Mammogram Screening [facility] Start: 2010 Screening for malign ant neoplasm of colon [facility] Start: 01-07-1984 Urine microalbumin profile [facility] Start: 1983 HEPATITIS C SCREENING HEPATITIS C [facility] Start: 1983 Hepatitis C screening Hepatitis C [facility] Start: 1983 HIV SCREENING HIV SCREENING [facility] Start: 1983 HIV screening HIV Screening [facility] Immunizations Immunization Date Immunization Notes Care Provider Sonido snyder 09-10-[address] AGAPITO JIMÉNEZ DO [facility] 08-21-2024 influenza virus vaccine, unspecified formulation DR AGAPITO JIMÉNEZ DO [facility] 08-01-2024 SARS-CoV-2 (COVID-19 ) mRNAMUL.ORD![id number] DR AGAPITO JIMÉNEZ DO [facility] 07-20-2024 Pneumococcal conjuga te PCV20, polysaccharide [id number] conjugate, adjuvant, PF; Translations: [Prevnar 20] DR AGAPITO JIMÉNEZ DO [facility] 08-18-2023 SARS-CoV-2 (COVID-19 ) mRNAMUL.ORD![id number] [employer] [facility] 08-11-2023 influenza, injectabl e, quadrivalent, contains preservative; Translations: [Fluarix PF Quadrivalent ] [employer] [facility] 09-06-2022 influenza virus vaccine, unspecified formulation DR AGAPITO JIMÉNEZ DO [facility] 02-11-2022 SARS-CoV-2 mRNA (mmuaubrxlti-shum-qnjeu se) vaccine DR AGAPITO JIMÉNEZ DO [facility] Comment on above: Result Comment: 2021: BOOSTER #2 08-15-2021 SARS-CoV-2 mRNA (tozinameran) vaccine DR AGAPITO JIMÉNEZ DO [facility] 08-12-2021 influenza virus vaccine, unspecified formulation DR AGAPITO JIMÉNEZ DO [facility] 02-10-2021 SARS-CoV-2 (COVID-19 ) mRNA BNT-162b2 vax MEL JOSHUA FURRIER APPRENTICE-DOOR SLINGER [facility] 01-20-2021 SARS-CoV-2 (COVID-19 ) mRNA BNT-162b2 vax MELVILMA JOSHUA FURRIER APPRENTICE-DOOR SLINGER [facility] Comment on above: Result Comment: 2020: [id number] 07-22-2020 influenza, injectabl e, quadrivalent, preservative free; Translations: [Fluarix PF Quadrivalent ] MEL JOSHUA FURRIER APPRENTICE-DOOR SLINGER [facility] 07-22-2020 influenza virus vaccine, unspecified formulation Gayathri Bowden FURRIER APPRENTICE.DOOR SLINGER Work Phone: [facility] 10-02-2019 tetanus toxoid, redu yasmine diphtheria toxoid, and acellular pertussis vaccine, adsorbed MEL JOSHUA FURRIER APPRENTICE-DOOR SLINGER [facility] 08-20-2019 influenza virus vaccine, unspecified formulation MEL JOSHUA FURRIER APPRENTICE-DOOR SLINGER [facility] 07-31-2018 influenza virus vaccine, unspecified formulation MEL JOSHUA FURRIER APPRENTICE-DOOR SLINGER [facility] 08-04-2017 influenza virus vaccine, unspecified formulation MEL JOSHUA FURRIER APPRENTICE-DOOR SLINGER [facility] 08-20-2009 tetanus toxoid, redu yasmine diphtheria toxoid, and acellular pertussis vaccine, adsorbed MEL JOSHUA FURRIER APPRENTICE-DOOR SLINGER [facility] 09-19-2006 influenza virus vaccine, unspecified formulation Stefania Hoang [facility] Work Phone: Payers Date Payer Category Payer Unknown 2024 Self-pay 2023 Unknown [id number] 2021 Medicare [facility] AARP MEDICAR E [facility] MEDICARE HMO [id number] 2021-Present [phone] [address] [address] [place] [address] HMO [id number] 2020 Unknown [employer] PPO [id number] 2020-Present PPO [id number] 1965 Unknown [id number] 1965 Unknown [id number] [id number] 1965 Unknown [id number] [id number] 1965 Unknown [id number] [id number] 1965 Unknown [id number] [id number] 1965 Unknown [id number] [id number] 1965 Unknown [id number] [id number] 1965 Unknown [id number] [id number] 1965 Unknown [id number] [id number] 1965 Unknown [id number] [id number] 1965 Unknown [id number] 2.840.1.077641.3.579.2.627 1965 Unknown [id number] [id number] 1965 Unknown [id number] [id number] Unknown [id number] [id number] Unknown [id number] 2.840.1.838665.3.579.2.462 Unknown [id number] 2.840.1.997471.3.579.2.462 Unknown [id number] 2.840.1.365166.3.579.2.462 Unknown [id number] 2.840.1.247666.3.579.2.462 Unknown [id number] 2.840.1.529567.3.579.2.462 Unknown [id number] 2.840.1.176051.3.579.2.462 Unknown [id number] 2.840.1.684278.3.579.2.462 Unknown [id number] 2.840.1.164324.3.579.2.462 Unknown [id number] 2.16840.1.224343.3.579.2.462 Unknown [id number] 2.16840.1.352321.3.579.2.462 Unknown [id number] 2.16840.1.721321.3.579.2.462 Unknown [id number] 2.840.1.470373.3.579.2.462 Unknown [id number] 2.16840.1.638234.3.579.2.462 Unknown [id number] 2.16.840.1.372984.3.579.2.462 Unknown [id number] 2.16.840.1.966802.3.579.2.462 Unknown [id number] 2.840.1.517163.3.579.2.462 Unknown [id number] 2.16840.1.346174.3.579.2.462 Unknown [id number] 2.840.1.299519.3.579.2.462 Unknown [id number] 2.840.1.435099.3.579.2.462 Unknown [id number] 2.840.1.992835.3.579.2.462 Unknown [id number] 2.840.1.581002.3.579.2.462 Unknown [id number] 2.840.1.351896.3.579.2.462 Unknown [id number] 2.840.1.639832.3.579.2.462 Unknown [id number] 2.840.1.407333.3.579.2.462 Unknown [id number] 2.840.1.506338.3.579.2.462 Unknown [id number] 2.840.1.824455.3.579.2.462 Unknown [id number] 2.840.1.689140.3.579.2.462 Unknown [id number] 2.16840.1.810569.3.579.2.462 Unknown [id number] 2.16840.1.955594.3.579.2.462 Unknown [id number] 2.840.1.452314.3.579.2.462 Unknown [id number] 2.16.840.1.422016.3.579.2.462 Unknown [id number] 2.16.840.1.797665.3.579.2.462 Unknown [id number] 2.16.840.1.493360.3.579.2.462 Unknown [id number] 2.16.840.1.548973.3.579.2.462 Unknown [id number] 2.16.840.1.362281.3.579.2.462 Unknown [id number] 2.16.840.1.750612.3.579.2.462 Social History Date Type Detail Facility Start: 08-04-2020 End: 07-20-2024 Tobacco smoking status NHIS Former smoker [facility] End: 07-21-2009 History of tobacco use Current smoker [facility] End: 07-21-2009 History of tobacco use Cigarette Smoker [facility] Start: 08-04-2020 End: 10-13-2020 Cigarettes smoked current (pack per day) - Reported [facility] Start: 05-09-2012 End: 08-04-2020 Tobacco use and exposure Never used [facility] Start: 08-04-2020 End: 06-22-2022 Alcohol intake Current drinker of alcohol (finding) [facility] Start: 05-16-2014 Alcohol Comment 1 or 2 beers per wee k [facility] Sex Assigned At Not on file [facility] Exposure to SARS-CoV -2 (event) Not sure [facility] Start: 1965 Sex Assigned At Female [facility] Start: 08-05-2020 End: 10-13-2020 Tobacco use panel [facility] How hard is it for y ou to pay for the very basics like food, housing, medical care, and heating Not very hard [facility] PHQ-2 Score 2 [facility] (I/We) worried wheaneta er (my/our) food would run out before (I/we) got money to buy more. Never true [facility] Start: 08-05-2020 Education 21 [facility] Start: 01-21-2023 Gender identity Identifies as female gender (finding) [facility] Start: 01-21-2023 Sexual orientation Choose not to dis close [facility] Start: 01-21-2023 Sexual orientation Homosexual (findi ng) [facility] O[facility] Start: 12-28-2018 Sex Female (finding) [facility] Clinical Notes 03-18-2023 to 12-17-2024 Telephone Encounter - Luis Bruner - 04/16/2024 10:35 AM EDTTelephone Encounter - Luis Bruner - 04/16/2024 10:35 AM EDTRadiologyRadiologyRadiologyRadiologyLaboratoryLaboratoryLaboratory Note Date & Type Note Facility 12-17-2024 Note [facility] 07-29-2024 Note [facility] 07-17-2024 Note ORIGINAL EXAMINATION: CT OF THE [...] Sign Date: 07/17/2024 4:33:08 PM Ordering Provider: [facility] 06-22-2024 Note ORIGINAL EXAMINATION: LEFT UPPER QUADRANT [...] Sign Date: 06/22/2024 9:33:30 AM Ordering Provider: [facility] 05-09-2024 Note . MICRO - Microbiology PROCEDURE: [...] Locations *1: This test was performed at: [facility], [address] [place] [address], [id number] , [facility] ([place]) 04-16-2024 Telephone encounter Note Attempted to call and schedule appointment, but there's a recording that said it could not be connected. Luis Bruner [facility] 04-16-2024 Miscellaneous Notes Attempted to call and schedule appointment, but there's a recording that said it could not be connected. Luis Bruner OK to schedule for back pain, consult for treatment only, no meds Records from PCP placed into vickey Bowden APRN.DOOR SLINGER documented in this encounter [facility] 04-16-2024 Telephone encounter Note OK to schedule for back pain, consult for treatment only, no meds Records from PCP placed into vickey Bowden APRN.DOOR SLINGER [facility] Work Phone: 04-12-2024 Telephone encounter Note OK to schedule for neck and back pain, consult for treatment only, no meds as she is on daily benzodiazepines Records from PCP placed into vickey Bowden APRN.DOOR SLINGER [facility] Work Phone: 04-12-2024 Miscellaneous Notes OK to schedule for neck and back pain, consult for treatment only, no meds as she is on daily benzodiazepines Records from PCP placed into scan Gayathri Bwoden APRN.DOOR SLINGER documented in this encounter [facility] 07-25-2023 Note ED Nursing Discharge Summary Entered On: 07/25/2023 16:49 EDT Performed On: 07/25/2023 16:49 EDT by Julissa Crawford RN [place] Information [id number] ED IV's : No IV ED IV Site Assessment : No IV ED Vitals Completed : N/A ED Final Assessment Completed : Yes ED Progress Note Completed : Yes Complete all PRN/Pain response forms? : No ED Disassociate Patient from Monitor : Yes Updated Depart Time : Yes ED Belongings sent w patient [id number] : Yes Valuables Complete : Not applicable Julissa Crawford RN - 07/25/2023 16:49 EDT Education Instructions given to : Patient TeachBack Methodology : TeachBack, Explanation Barriers to Learning : None evident Julissa Crawford RN - 07/25/2023 16:49 EDT ED Assistance Summary Assistance Given? : No Julissa Crawford RN - 07/25/2023 16:[address] [facility] 03-18-2023 Note ORIGINAL NM MYOCARDIAL SPECT [...] PM Sign Date: 03/18/2023 12:31:37 PM Ordering Provider:[facility] 03-18-2023 Note ORIGINAL NM MYOCARDIAL SPECT STRESS/REST [...] PM Sign Date: 03/18/2023 12:31:37 PM Ordering Provider:[facility] Evaluation + Plan note Future Appointments Appointment Date:10/05/2021 10:00:00 AM Scheduled Provider: Location:[facility] Appointment Type:CV Procedure - AOH Echo Appointment Date:11/11/2021 08:30:00 AM Scheduled Provider:TITI MARTINEZ Location:[facility] PM Appointment Type:PM OV Appointment Date:01/20/2022 09:30:00 AM Scheduled Provider:AGAPITO JIMÉNEZ DO Location:[facility] Appointment Type:PC OV Future Scheduled TestsMRI Shoulder w/o Contrast Left 10/07/20XR Chest 2 Views (PA & Lateral) 12/04/20CT Low Dose Lung Cancer Screening (LDCT) 07/23/21 [facility] Evaluation + Plan note Future Appointments Appointment Date:11/11/2021 08:30:00 AM Scheduled Provider:TITI MARTINEZ Location:[facility] PM Appointment Type:PM OV Appointment Date:01/20/2022 09:30:00 AM Scheduled Provider:AGAPITO JIMÉNEZ DO Location:[facility] Appointment Type:PC OV Future Scheduled TestsXR Chest 2 Views (PA & Lateral) 12/04/20CT Low Dose Lung Cancer Screening (LDCT) 07/23/21 [facility] Evaluation + Plan note Future Appointments Appointment Date:12/29/2021 08:30:00 AM Scheduled Provider:AGAPITO JIMÉNEZ DO Location:[facility] Appointment Type:PC OV Appointment Date:01/20/2022 09:30:00 AM Scheduled Provider:AGAPITO JIMÉNEZ DO Location:[facility] Appointment Type:PC OV Appointment Date:05/25/2022 08:30:00 AM Scheduled Provider:INO MCFARLANE MD Location:[facility] PM Appointment Type:PM OV Future Scheduled TestsCT Low Dose Lung Cancer Screening (LDCT) 07/23/21 [facility] Evaluation + Plan note Future Appointments Appointment Date:01/20/2022 09:30:00 AM Scheduled Provider:AGAPITO JIMÉNEZ DO Location:[facility] Appointment Type:PC OV Appointment Date:04/06/2022 08:30:00 AM Scheduled Provider:INO MCFARLANE MD Location:[facility] PM Appointment Type:PM OV Appointment Date:05/25/2022 08:30:00 AM Scheduled Provider:INO MCFARLANE MD Location:[facility] PM Appointment Type:PM OV Future Scheduled TestsCT Low Dose Lung Cancer Screening (LDCT) 07/23/21 [facility] Evaluation + Plan note Future Appointments Appointment Date:07/14/2023 10:00:00 AM Scheduled Provider:AGAPITO JIMÉNEZ DO Location:[facility] Appointment Type:PC Wellness Annual [facility] Evaluation + Plan note Future Appointments Appointment Date:07/20/2024 10:00:00 AM Scheduled Provider:AGAPITO JIMÉNEZ DO Location:[facility] Appointment Type: Wellness Medicare Appointment Date:07/20/2024 02:00:00 PM Scheduled Provider: Location:[facility] Appointment Type:CV OV Diagnostic Tests PendingAntinuclear Antibody Screen, Serum 05/07/24Urine Culture 05/07/24 Future Scheduled TestsBasic Metabolic Panel 07/14/23Complete Blood Count 07/14/23Lipid Profile 07/14/23 [facility] Evaluation + Plan note Future Appointments Appointment Date:05/18/2024 10:30:00 AM Scheduled Provider:AGAPITO JIMÉNEZ DO Location:[facility] Appointment Type:PC OV Appointment Date:07/20/2024 10:00:00 AM Scheduled Provider:AGAPITO JIMÉNEZ DO Location:[facility] Appointment Type: Wellness Medicare Appointment Date:07/20/2024 02:00:00 PM Scheduled Provider: Location:[facility] Appointment Type:CV OV Future Scheduled TestsBasic Metabolic Panel 07/14/23Complete Blood Count 07/14/23Lipid Profile 07/14/23 [facility] Evaluation + Plan note Future Appointments Appointment Date:07/20/2024 10:00:00 AM Scheduled Provider:AGAPITO JIMÉNEZ DO Location:[facility] Appointment Type: Wellness Medicare Appointment Date:07/20/2024 02:00:00 PM Scheduled Provider: Location:[facility] Appointment Type:CV OV Future Scheduled TestsBasic Metabolic Panel 07/14/23Complete Blood Count 07/14/23Lipid Profile 07/14/23 [facility] Evaluation + Plan note Future Appointments Appointment Date:07/10/2024 10:30:00 AM Scheduled Provider:AGAPITO JIMÉNEZ DO Location:[facility] Appointment Type:PC OV Appointment Date:07/20/2024 10:00:00 AM Scheduled Provider:AGAPITO JIMÉNEZ DO Location:[facility] Appointment Type: Wellness Medicare Appointment Date:07/20/2024 02:00:00 PM Scheduled Provider: Location:[facility] Appointment Type:CV OV Diagnostic Tests PendingEpstein Jenkins Virus Antibody Titer 06/04/24 Future Scheduled TestsTSH with Reflex to FT4 06/04/24Lipid Profile 07/14/23 [facility] Evaluation + Plan note Future Appointments Appointment Date:07/05/2024 10:00:00 AM Scheduled Provider:AGAPITO JIMÉNEZ DO Location:[facility] Appointment Type:PC OV Appointment Date:07/10/2024 10:30:00 AM Scheduled Provider:AGAPITO JIMÉNEZ DO Location:[facility] Appointment Type:PC OV Appointment Date:07/20/2024 10:00:00 AM Scheduled Provider:AGAPITO JIMÉNEZ DO Location:[facility] Appointment Type: Wellness Medicare Appointment Date:07/20/2024 02:00:00 PM Scheduled Provider: Location:[facility] Appointment Type:CV OV Future Scheduled TestsLipid Profile 07/14/23 [facility] Evaluation + Plan note Future Appointments Appointment Date:07/20/2024 10:00:00 AM Scheduled Provider:AGAPITO JIMÉNEZ DO Location:[facility] Appointment Type: Wellness Medicare Appointment Date:07/20/2024 02:00:00 PM Scheduled Provider: Location:[facility] Appointment Type:CV OV Future Scheduled TestsCT Abd/Pelvis w/ IV Contrast Only 06/27/24 [facility] Evaluation + Plan note Future Appointments Appointment Date:01/18/2025 10:00:00 AM Scheduled Provider:AGAPITO JIMÉNEZ DO Location:[facility] Appointment Type:PC OV Future Scheduled TestsLipid Profile 01/17/25Complete Metabolic Panel 01/17/25MA Mammo Screening Bilateral w/ Anthony 07/20/24CT Abd/Pelvis w/ IV Contrast Only 06/27/24 [facility] Evaluation + Plan note Future Appointments Appointment Date:01/18/2025 10:00:00 AM Scheduled Provider:AGAPITO JIMÉNEZ DO Location:[facility] Appointment Type:PC OV Future Scheduled TestsBasic Metabolic Panel 12/13/24Lipid Profile 01/17/25Complete Metabolic Panel 01/17/25MA Mammo Screening Bilateral w/ Anthony 07/20/24CT Abd/Pelvis w/ IV Contrast Only 06/27/24 [facility] Hospital course Narrative No data available for this section [facility] Hospital Discharge instructions No data available for this section [facility] Progress note No data available for this section [facility] Summary Purpose Family History No Family History [...] FoundDocuments on File Type Date Recorded Patient Inventory Associate And Driver Expl anation Advance Directive(s) 10/13/2018 3:26 PM [...] section and content) DATE CREATED AUTHOR 05/05/2018 [facility] DATE CREATED AUTHOR AUTHOR'S ORGANIZ ATION 08/08/2020 [facility] DATE CREATED AUTHOR AUTHOR'S ORGANIZ ATION 07/27/2023 [facility] DATE CREATED AUTHOR AUTHOR'S ORGANIZ ATION 04/21/2024 [facility] DATE CREATED AUTHOR AUTHOR'S ORGANIZ ATION 07/01/2024 [facility] ([place]) DATE CREATED AUTHOR AUTHOR'S ORGANIZ ATION 12/15/2024 [facility] DATE CREATED AUTHOR AUTHOR'S ORGANIZ ATION 04/15/2025 [facility] Source Comments (unrecognize d section and content) In the event this informatio n is protected by the Federal Confidentiality of Alcohol and Drug Abuse Patient Records regulations: The Federal rules restrict any use of the information to criminally investigate or prosecute any alcohol or drug abuse patient.[facility] the event this information is protected by the Federal Confidentiality of Alcohol and Drug Abuse Patient Records regulations: The Federal rules restrict any use of the information to criminally investigate or prosecute any alcohol or drug abuse patient.[facility] CenterIn the event this information is protected by the Federal Confidentiality of Alcohol and Drug Abuse Patient Records regulations: The Federal rules restrict any use of the information to criminally investigate or prosecute any alcohol or drug abuse patient.[facility] Reason for Visit (unrecogniz ed section and [...] 55 year old female brought in to [facility] ED from Home by family for psych [...] he has confidence in the team at [facility] psych PAST MEDICAL HISTORY: PAST MEDICAL HISTORY Diagnosis Date Acid reflux Attention deficit disorder with hyperactivity(314.01) Chronic depressive personality disorder Diarrhea Diffuse cystic mastopathy had mammo at [facility] Personal history of tobacco use, presenting hazards to health No longer smoking [facility] - PAST MEDICAL HISTORY OF had double [...] Septoplasty SOCIOECONOMIC HISTORY: Employer And Job Title: [employer] (No job title specified); [employer] Years Of Education Completed: Not specified Marital Status: with no children SOCIAL INFORMATION: Living Arrangements: Home Employment Status: Disabled Is the Patient a [place]: No Legal History: No Legal History Gender [...] Topic Quantity: Appropriate Thought Processes 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 Psychiatrist manager transportation: Name: Dr Oshea (Dr Curiel) Date: 08/04/20 Time: . Other Contact and Role: N/A DISPOSITION & PLAN: Reviewed medical history with physician: Yes Reviewed abnormal labs with physician: Yes Discussed case with Dr. Saldivar (Dr Curiel) who states that Sarah Mendes is a candidate for admission. Is Patient Less Than 18 Years of Age or have a Guardian/Healthcare Power of Solution Make Up Operator?: No SIGNATURE: Stefania Hoang RN PATIENT NAME: Sarah Mendes DATE: August 04, 2020 TIME: 8:09 PM documented in this encounter Care Team (unrecognized sect ion and content) Care Team Personnel Name: TITI MARTINEZ FURRIER APPRENTICE-DOOR SLINGER Position: P4 Advanced M1 Armor Crewman Member Role: Pain Management Address: Address: [address] [place] [address] [address] [facility] [place], [place] [address] Name: INO MCFARLANE MD Member Role: Pain Management Address: Address: [address] [place] [address] [address] [facility] [place], [place] [address] Name: AGAPITO JIMÉNEZ DO Position: P4 Physician - Primary Care Member Role: Primary Care Physician Address: Address: [address] [place] [address] [facility] [place], [place] [address] Care Team Related Persons Name: CARLOS DUNNE Address: Home [address] [place] [phone] Patient Care team informatio n (unrecognized section and content) [facility] Relationship Specialty Start Date End Date Agapito Jiménez DO [address] [place] [id number] PCP - General Family Medicine 08/04/20 [facility] Work[facility] Relationship Specialty Start Date End Date Agapito Jiménez DO [address] [place] [id number] PCP - General Family Medicine 08/04/20 FOR [...] BE BASED ON THE PRIMARY CLINICAL RECORDS. [employer] provides no warranty or guarantee of the accuracy or completeness of information in this document.
[2025-05-27] MEDS: Furosemide 20 MG/2 ML VIAL IV (22:27)
[2025-05-28 02:30] VITALS: BP 83/61; PULSE 64; RESP 14; TEMP 36.6; O2SAT 96
[2025-05-28 03:08] VITALS: BMI 31.0
[2025-05-28 05:40] VITALS: BP 98/68; PULSE 70; RESP 16; TEMP 36.8; O2SAT 97
[2025-05-28 06:41] VITALS: O2SAT 94
[2025-05-28 07:57] LABS: Hematocrit 34.0 % (37-47); Hemoglobin 11.7 g/dL (12.0-15.0); Immature Granulocytes Count 0.010 X10^3/uL (0.0-0.0); Mean Corp Hgb Conc 34.4 g/dL (32-36); Mean Corpuscular Volume 92.6 fL (81-99); Mean Platelet Vol. 12.2 fl (6.2-12.0); NRBC Flagged by Analyzer 0 % (0-5); Platelet Count 170 K/mm3 (150-450); RBC Distribution Width CV 12.3 % (11.6-14.6); RBC Distribution Width SD 42.1 fl (35.1-43.9); Red Blood Count 3.67 M/mm3 (4.2-5.4); White Blood Count 5.9 K/mm3 (4.4-11.0)
[2025-05-28 08:52] LABS: Anion Gap 11 (5-15); BUN 12 mg/dL (4-19); BUN/Creat Ratio 15.2 RATIO (10-20); Calcium,Total 8.8 mg/dL (7.6-11.0); Carbon Dioxide 24.8 mmol/L (21.0-32.0); Chloride 106 mmol/L (98-108); Estimated Creatinine Clearance 83.50 ml/min (50-250); Glucose 92 mg/dL (70-99); Potassium 3.5 mmol/L (3.3-5.1)
--- NOTE | 2025-05-28 09:00 | MRI_ITS ---
EXAM: BRAIN WITHOUT CONTRAST CLINICAL HISTORY: DOUBLE VISION, TIA W/U COMPARISON: None. TECHNIQUE: Multiplanar, multisequence MR images of the brain were obtained without gadolinium contrast material. FINDINGS: No intracranial hemorrhage, mass, mass effect, midline shift or pathologic extra- axial fluid collection. No hydrocephalus. There is abnormal increased T2 and FLAIR signal in the deep white matter on the right and left with moderate bilateral white matter disease. The largest lesion in the mid parietal region on the right measures 0.6 cm, axial image 16/26 and on the left in the mid parietal region measures 0.5 cm, image 16. No areas of restricted diffusion to suggest acute ischemia or infarction. No gradient signal blooming artifacts are identified. No cerebellar tonsillar ectopia. No sellar/suprasellar signal abnormalities. The ocular globes and intraorbital soft tissues are symmetrically unremarkable. There is mucosal thickening in the right maxillary sinus. There is fluid signal in a portion of the right mastoid air cells, with mastoiditis. MRI/Brain without Contrast IMPRESSION: There is abnormal increased T2 and FLAIR signal in the deep white matter on the right and left with moderate bilateral white matter disease. The largest lesion in the mid parietal region on the right fco sures 0.6 cm, axial image 16/26 and on the left in the mid parietal region measures 0.5 cm, image 16. The differential includes d emyelination, and chronic ischemic changes. There is mucosal thickening in the right maxillary sinus. There is fluid signal in a portion of the right mastoid air cells, with mastoid itis. Reading Location: [facility]
[2025-05-28] MEDS: Magnesium Chloride 64 MG Delay Rel.Tablet 128 MG PO (09:22)
[2025-05-28 09:32] LABS: Cholesterol 131 mg/dL (<=200); Low Density Lipoprotein Calc. 66 mg/dL; Triglycerides 91 mg/dL; Very Low Density Lipoprotein 18 mg/dL (5-40); cholesterol:hdl ratio screen 2.79
[2025-05-28 10:00] VITALS: BP 118/75; PULSE 66; RESP 18; TEMP 36.9; O2SAT 100
--- NOTE | 2025-05-28 12:02 | STROKE.CONS ---
Assessment and Plan: Stroke Assessment/Plan RYANNE RENTERIA is a 60 F with a history of TIA, ARLEN, GERD, depression who presents for evaluation of transient dizziness and double vision Neurological examination shows intact examination. Neuroimaging shows Ct head: negative, CTA: No LVO, MRI: No acute stroke. Has chronic small vessel changes. ECHO: EF okay. Mild MVI. LDL: 66, hba1c: 5.1. Likely had TIA Plan Continue ASA Continue statin Can get a 30 Day Cardiac Event Monitor upon discharge to exclude other causes. Thanks for consult. Spent 35 min in management of this patient. HPI Consult Data Date of Consult: 05/28/25 HPI Narrative HPI Narrative: RYANNE RENTERIA, is a 60 F with TIA, ARLEN, GERD, depression who presented to [facility] ED 05/27/2025 for evaluation of resolved double vision lightheadedness. She was at the [facility] swimming and developed double vision at 1245. It was similar to previous TIA so ultimately she came to the ED for evaluation. Double vision which was one on top of the other, disappeared when she covered one eye. It lasted for for about 20 minutes. She had lightheaded for about an hour. No weakness or numbness. No slurred speech. She did exert herself with swimming and was concerned weakness could be secondary to that. Patient was a stroke call in the ED. NIH 0 patient not TNK candidate. Teleneurology evaluated and recommended no TNK given low NIH She reports she was swimming when she developed the double vision that improved when she covered 1 eye, this lasted about 15 minutes and she also felt lightheaded and weak. She had another episode when she got home before she came to the ED but has had no further episodes in the ED. Currently vision back to baseline. Feels somewhat weak diffusely but denies any focal complaints, no headache. Does note that she had her spinal stimulator removed since last time and is now able to get MRIs. Patient does note some increased bilateral lower extremity swelling and would take as needed Lasix but has not had to take any in over a month. Denies any shortness of breath or cough, no chest pain. Does have some palpitations occasionally. CT head with chronic changes but no acute change. CTA head and neck no LVO. 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 Depression Anxiety Alcohol use Ambulates with cane Fatty liver Back pain History of IBS Gastric reflux Former smoker Pulmonary hypertension CPAP (continuous positive airway pressure) dependence History of edema History of stress test H/O transesophageal echocardiography (ELAINE) for monitoring Normal Holter exam History of irregular heartbeat Premature ventricular contraction Premature atrial contraction ARLEN (obstructive sleep apnea) SVT (supraventricular tachycardia) Non-rheumatic mitral regurgitation Nonrheumatic mitral (valve) prolapse Tachycardia Osteoarthritis History of emotional problems Hematuria Home Medications ?Medication ?Instructions ?Recorded ?Last Taken ?Type magnesium oxide 400 mg PO DAILY SUPPLEMENT 01/27/21 05/27/25 History levocetirizine 5 mg tablet (Xyzal) 5 mg PO DAILY ALLERGIES 09/13/22 05/27/25 History pantoprazole 40 mg tablet,delayed 40 mg PO DAILY GERD #90 tabs 07/12/23 05/27/25 Rx release lamotrigine 200 mg tablet 400 mg PO DAILY ANXIETY 04/24/24 05/27/25 History (Lamictal) aspirin 81 mg chewable tablet 81 mg PO BREAKFAST BLOOD THINNER 07/29/24 05/27/25 Rx #30 tabs quetiapine 100 mg tablet 100 mg PO QHS SLEEP 08/30/24 05/26/25 History rosuvastatin 20 mg tablet 20 mg PO QHS SLEEP 08/30/24 05/26/25 History furosemide 20 mg tablet 20 mg PO DAILY PRN edema #90 tabs 10/17/24 12/16/24 07:00 Rx vitamin E (dl, acetate) 180 mg 180 mg PO QDAY SLEEP 10/17/24 05/26/25 History (400 unit) capsule alendronate 70 mg tablet 70 mg PO QWEEK OSTEOPOROSIS 11/23/24 05/26/25 History metoprolol succinate 50 mg 50 mg PO DAILY BP 12/05/24 05/27/25 History tablet,extended release 24 hr polyethylene glycol 3350 17 17 g PO DAILY PRN STOOL SOFTENER 12/05/24 12/16/24 07:00 History gram/dose oral powder (ClearLax) ascorbate calcium (vitamin C) 500 500 mg PO QDAY 01/29/25 05/27/25 History mg tablet losartan 25 mg tablet 25 mg PO QDAY #90 tabs 04/25/25 05/27/25 Rx calcium citrate 250 mg PO DAILY 05/27/25 05/26/25 History cholecalciferol (vitamin D3) 125 125 mcg PO DAILY 05/27/25 05/27/25 History mcg (5,000 unit) capsule clonazepam 0.5 mg tablet (Klonopin) 0.5 mg PO DAILY 05/27/25 05/26/25 History clonazepam 1 mg tablet 1 mg PO BID 05/27/25 05/27/25 History quetiapine 400 mg tablet 400 mg PO QHS 05/27/25 05/26/25 History ursodiol 250 mg tablet 250 mg PO BIDCM 05/27/25 05/27/25 History zinc gluconate 50 mg tablet 50 mg PO DAILY PRN SUPPLEMENT 05/27/25 Unknown History Allergy/AdvReac Type Severity Reaction Status Date / Time bethanechol (From Urecholine) Allergy Mild saliva Verified 05/27/25 14:30 adhesive tape Allergy rash Verified 05/27/25 14:30 Sulfa (Sulfonamide Allergy Rash Verified 05/27/25 14:30 Antibiotics) Family History Mother Anxiety Arthritis Depression Mental disorder Osteoporosis Atrial fibrillation Sister Breast cancer Diabetes Brother Diabetes Father CAD (coronary artery disease) History of coronary artery bypass surgery Atrial fibrillation Gallbladder cancer Diabetes Heart disease Alcoholism Aunt Colon cancer Other Hypertension Melanoma Surgical History H/O spinal fusion History of lumbar fusion (12/17/24) History of esophagogastroduodenoscopy (EGD) History of surgery History of rotator cuff surgery History of cardiac catheterization Hx of arthroscopy of right knee (~2017) History of tonsillectomy (~2008) History of bladder surgery (~1971) Social History household members: spouse current occupational status: unemployed 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 Smoking Status: Never smoker Electronic Cigarette Use: not used alcohol intake: current alcohol intake frequency: a few times a month Alcohol type: beer substance use type: does not use caffeine: Yes Type: coffee Number of servings: 1 what type of physical activity do you participate in: swimming frequency: 3-4 times per week do you feel safe at home: Yes Vital Signs Vital Signs Vital Signs: 05/27/25 14:31 05/27/25 14:48 05/27/25 14:48 Temperature 97.3 F L Temperature Source Temporal Pulse Rate 68 67 Pulse Strength Respiratory Rate 18 18 Respiratory Effort Respiratory Depth Respiratory Pattern Blood Pressure 137/84 H 135/76 H Blood Pressure Mean 101 95 Blood Pressure Source Blood Pressure Position Blood Pressure Location Pulse Ox 97 97 96 Oxygen Delivery Method Room Air Room Air Room Air 05/27/25 15:18 05/27/25 15:30 05/27/25 16:02 Temperature Temperature Source Pulse Rate 67 75 60 Pulse Strength Respiratory Rate 19 H 16 15 Respiratory Effort Respiratory Depth Respiratory Pattern Blood Pressure 141/79 H 132/81 H 114/74 Blood Pressure Mean 99 98 87 Blood Pressure Source Blood Pressure Position Blood Pressure Location Pulse Ox 100 100 100 Oxygen Delivery Method Room Air Room Air Room Air 05/27/25 16:03 05/27/25 17:34 05/27/25 19:35 Temperature 97.3 F L 98.1 F 97.8 F Temperature Source Oral Oral Pulse Rate 60 62 59 L Pulse Strength Respiratory Rate 15 16 14 Respiratory Effort Respiratory Depth Respiratory Pattern Blood Pressure 114/74 131/81 H 116/67 Blood Pressure Mean 87 97 83 Blood Pressure Source Monitor Monitor Blood Pressure Position Semi-Fowlers Semi-Fowlers Blood Pressure Location Left Arm Left Arm Pulse Ox 100 98 97 Oxygen Delivery Method Room Air Room Air 05/27/25 19:48 05/27/25 19:52 05/27/25 20:42 Temperature Temperature Source Pulse Rate Pulse Strength Normal (2+) Respiratory Rate Respiratory Effort Normal Non-Labored Respiratory Depth Normal Respiratory Pattern Normal Blood Pressure Blood Pressure Mean Blood Pressure Source Blood Pressure Position Blood Pressure Location Pulse Ox 95 Oxygen Delivery Method Room Air Room Air 05/27/25 22:20 05/28/25 02:30 05/28/25 03:06 Temperature 98.0 F 97.9 F Temperature Source Oral Oral Pulse Rate 64 64 Pulse Strength Respiratory Rate 15 14 Respiratory Effort Normal Non-Labored Respiratory Depth Normal Respiratory Pattern Normal Blood Pressure 118/79 83/61 L Blood Pressure Mean 92 68 Blood Pressure Source Monitor Monitor Blood Pressure Position Semi-Fowlers Semi-Fowlers Blood Pressure Location Left Arm Right Arm Pulse Ox 100 96 Oxygen Delivery Method Room Air CPAP CPAP 05/28/25 05:40 05/28/25 09:39 05/28/25 09:39 Temperature 98.2 F Temperature Source Oral Pulse Rate 70 Pulse Strength Normal (2+) Respiratory Rate 16 Respiratory Effort Normal Non-Labored Respiratory Depth Normal Respiratory Pattern Normal Blood Pressure 98/68 Blood Pressure Mean 78 Blood Pressure Source Monitor Blood Pressure Position Semi-Fowlers Blood Pressure Location Left Arm Pulse Ox 97 Oxygen Delivery Method CPAP Room Air 05/28/25 10:00 05/28/25 10:00 Temperature 98.5 F 98.5 F Temperature Source Oral Oral Pulse Rate 66 66 Pulse Strength Respiratory Rate 18 18 Respiratory Effort Respiratory Depth Respiratory Pattern Blood Pressure 118/75 118/75 Blood Pressure Mean 89 89 Blood Pressure Source Monitor Monitor Blood Pressure Position Semi-Fowlers Semi-Fowlers Blood Pressure Location Left Arm Left Arm Pulse Ox 100 100 Oxygen Delivery Method Room Air Room Air Weight Weight: 84.7 kg Body Mass Index (BMI) 31.0 EEG Results Procedure Details EEG Procedure Details: RYANNE RENTERIA is a 60 year old F with a past medical history of , who presents for evaluation of Electroencephalogram on DATE at TIME Physical Exam Neuro Neuro Narrative: Awake, alert, oriented X3 CN 2-12 intact Motor 5/5 Sensation: Intact No ataxia Lab / Micro Data 05/28/25 06:34 05/28/25 06:34 Labs: Laboratory Results - last 24 hr 05/27/25 14:47: WBC 8.2, RBC 4.03 L, Hgb 13.0, Hct 37.2, MCV 92.3, MCH 32.3 H, MCHC 34.9, RDW Std Deviation 40.6, RDW Coeff of Bravo 12.0, Plt Count 210, MPV 12.0, Immature Gran % (Auto) 0.500, Neut % (Auto) 62.8, Lymph % (Auto) 28.8, Sawyer % (Auto) 5.3, Eos % (Auto) 1.9, Baso % (Auto) 0.7, Absolute Neuts (auto) 5.2, Absolute Lymphs (auto) 2.37, Nucleated RBC % 0, PT 12.3, INR 0.9, APTT 29.1, Sodium 139, Potassium 4.0, Chloride 105, Carbon Dioxide 22.0, Anion Gap 12, BUN 12, Creatinine 0.91, Estim Creat Clear Calc 70.84, Est GFR (MDRD) Non-Af 72, BUN/Creatinine Ratio 13.4, Glucose 126 H, Calcium 9.4, Troponin T High Sens < 6 05/27/25 14:51: POC Glucose 111 H 05/27/25 17:04: Troponin T Hi Sens 2 Hr < 6 05/27/25 18:42: Troponin T Hi Sens 4Hr 8, NT pro BNP II 1031 H 05/28/25 06:34: WBC 5.9, RBC 3.67 L, Hgb 11.7 L, Hct 34.0 L, MCV 92.6, MCH 31.9, MCHC 34.4, RDW Std Deviation 42.1, RDW Coeff of Bravo 12.3, Plt Count 170, MPV 12.2 H, Immature Gran % (Auto) 0.200, Neut % (Auto) 52.0, Lymph % (Auto) 37.1, Sawyer % (Auto) 7.5, Eos % (Auto) 2.7, Baso % (Auto) 0.5, Absolute Neuts (auto) 3.0, Absolute Lymphs (auto) 2.17, Nucleated RBC % 0, Sodium 142, Potassium 3.5, Chloride 106, Carbon Dioxide 24.8, Anion Gap 11, BUN 12, Creatinine 0.77, Estim Creat Clear Calc 83.50, Est GFR (MDRD) Non-Af 88, BUN/Creatinine Ratio 15.2, Glucose 92, Hemoglobin A1c 5.1, Calcium 8.8, Triglycerides 91, Cholesterol 131, LDL Cholesterol, Calc 66, VLDL Cholesterol 18, HDL Cholesterol 47, Cholesterol/HDL Ratio 2.79 Imaging Radiology Impression Brain CT 05/27/25 14:48 IMPRESSION: 1. Small vessel ischemic/degenerative changes. 2. No acute intracranial hemorrhage, midline shift or mass effect. If symptoms persist, further evaluation with MRI is recommended. Red Alert: No acute intracranial hemorrhage. The critical information above was relayed directly by me by telephone to Johann Wade on 05/27/2025 at 3:03 pm with readback verification. Reading Location: [facility] Head/Neck CTA 05/27/25 14:55 IMPRESSION: No acute large vessel occlusions or high grade stenosis. Reading Location: [facility] Echocardiogram 05/27/25 17:59 Interpretation Summary Normal LV size. Left ventricular systolic function is normal. Mild (1+) eccentric mitral valve insufficiency. The left ventricular ejection fraction is 60 %. Pulmonary artery systolic pressure is 36 mmHg. Ordering Physician: Angela Rosa Referring Physician: Agapito Saucedo Performed By: Anny JEAN RDCS, Jazmyne and Student Brain MRI 05/28/25 09:00 IMPRESSION: There is abnormal increased T2 and FLAIR signal in the deep white matter on the right and left with moderate bilateral white matter disease. The largest lesion in the mid parietal region on the right measures 0.6 cm, axial image 16/26 and on the left in the mid parietal region measures 0.5 cm, image 16. The differential includes demyelination, and chronic ischemic changes. There is mucosal thickening in the right maxillary sinus. There is fluid signal in a portion of the right mastoid air cells, with mastoiditis. Reading [facility] Active Medications Active Medications Active Medications: Current Medications Generic Name Dose Route Start Last Admin Trade Name Freq PRN Reason Stop Dose Admin Acetaminophen 650 mg 05/27/25 17:59 Acetaminophen 325 Mg Tablet PO Q6H PRN PRN Pain 1-10 Or Fever >100.7 Albuterol Sulfate 2.5 mg 05/27/25 17:59 Albuterol 2.5 Mg/3 Ml Vial.Neb. INHALATION Q2H PRN PRN SOB &/OR WHEEZING Aspirin 81 mg 05/28/25 08:00 05/28/25 09:22 Aspirin 81 Mg Tab.Chew PO 81 mg BREAKFAST JUNITO Administration Atorvastatin Calcium 80 mg 05/27/25 22:00 05/27/25 22:27 Atorvastatin Calcium 80 Mg Tablet PO 80 mg QHS JUNITO Administration Clonazepam 1 mg 05/27/25 22:00 05/28/25 05:42 Clonazepam 1 Mg Tablet PO 1 mg 0600,2200 JUNITO Administration Clonazepam 0.5 mg 05/28/25 14:00 Clonazepam 0.5 Mg Tablet PO 1400 JUNITO Hydralazine HCl 5 mg 05/27/25 17:59 Hydralazine 20 Mg/Ml Vial IV 05/28/25 17:59 Q30M PRN maintain BP parameters with HR <60 Sodium Chloride 250 mls @ 15 mls/hr 05/27/25 17:39 IV .[id number] PRN Saline Flush Sodium Chloride 250 mls @ 15 mls/hr 05/27/25 17:39 IV .[id number] PRN Additional IVPB Infusion Labetalol HCl 10 - 20 mg 05/27/25 17:59 Labetalol 20 Mg/4 Ml Vial IV 05/28/25 17:59 Q10M PRN PRN maintain BP parameters with HR >/=60 Lamotrigine 400 mg 05/28/25 10:00 05/28/25 09:22 Lamotrigine 100 Mg Tablet PO 400 mg DAILY JUNITO Administration Loratadine 10 mg 05/28/25 10:00 05/28/25 09:22 Loratadine 10 Mg Tablet PO 10 mg DAILY JUNITO Administration Magnesium Chloride 128 mg 05/28/25 10:00 05/28/25 09:22 Magnesium Chloride 64 Mg Delay Rel.Tablet PO 128 mg DAILY JUNITO Administration Melatonin 10 mg 05/27/25 17:59 Melatonin 10 Mg Tablet PO QHS PRN PRN INSOMNIA Ondansetron HCl 4 mg 05/27/25 17:59 Ondansetron 4 Mg/2 Ml Vial IV Q8H PRN PRN NAUSEA/VOMITING Pantoprazole Sodium 40 mg 05/28/25 10:00 05/28/25 09:22 Pantoprazole Sodium 40 Mg Tablet PO 40 mg DAILY JUNITO Administration Quetiapine Fumarate 500 mg 05/27/25 22:00 05/27/25 22:27 Quetiapine 100 Mg Tablet PO 500 mg QHS JUNITO Administration Senna/Docusate Sodium 2 tablet 05/27/25 17:59 Senna/Docusate Sodium 1 Tablet PO BID PRN PRN Constipation Sodium Chloride 10 - 40 ml 05/27/25 17:39 05/27/25 19:44 0.9% Saline Lock 10 Ml Syringe IV 10 ml UD PRN Administration SALINE FLUSH Ursodiol 250 mg 05/27/25 19:00 05/28/25 09:22 Ursodiol 250 Mg Tablet PO 250 mg BIDCM JUNITO Administration NIHSS NIHSS Nursing Documentation NIHSS Nursing Documentation: NIHSS: Ischemic Stroke/TIA Start: 05/27/25 17:59 Text: For PCU Patients: NIH and Neuro Check every 4 Status: Active hours, PRN and with change in RN caregiver. Freq: [id number] Protocol: Activity Type Activity Date Activity User E-sign Co-sign Detail Recorded Client Recorded Date Recorded By Document 05/28/25 09:39 [id number] 05/28/25 09:46 05/28/25 09:39 NIH Stroke Scale [NIHSS] A score of 0 is normal or asymptomatic . Total possible score is 42. Inpatient: RN or Physician to activate a stroke alert for onset of new stroke symptoms or with NIHSS increase >/= 3 points. Following change in neurological status, NIHSS will be performed per physician order or more frequently PRN. -1a. Level of Consciousness 0 - Alert; keenly responsive -1b. LOC Questions 0 - Answers BOTH questions correctly -1c. LOC Commands 0 - Performs BOTH tasks correctly -2. Best Gaze 0 - Normal -3. Visual 0 - No visual loss -4. Facial Palsy 0 - Normal symmetrical movements -5a. Left Arm 0 - No drift; arm holds 90 ( or 45) degrees for full 10 seconds -5b. Right Arm 0 - No drift; arm holds 90 ( or 45) degrees for full 10 seconds -6a. Left Leg 0 - No drift; leg holds 30- degree position for full 5 seconds -6b. Right Leg 0 - No drift; leg holds 30- degree position for full 5 seconds -7. Limb Ataxia 0 - Absent -8. Sensory 0 - Normal; no sensory loss -9. Best Language 0 - No aphasia; normal -10. Dysarthria 1 = Mild-to- moderate dysarthria; -11. Extinction and Inattention 0 - No abnormality -Total 1 Query Text:A score of 0 is normal or asymptomatic. Total possible score is 42 . ED: Notify Physician for NIHSS increase by > / = 3 points. Inpatient: RN or Physician to activate a stroke alert for NIHSS increase of > / = 3 points. NIHSS 1a. Level of Consciousness: 0 - Alert; keenly responsive 1b. LOC Questions: 0 - Answers BOTH questions correctly 1c. LOC Commands: 0 - Performs BOTH tasks correctly 2. Best Gaze: 0 - Normal 3. Visual: 0 - No visual loss 4. Facial Palsy: 0 - Normal symmetrical movements 5a. Left Arm: 0 - No drift; arm holds 90 (or 45) degrees for full 10 seconds 5b. Right Arm: 0 - No drift; arm holds 90 (or 45) degrees for full 10 seconds 6a. Left Le - No drift; leg holds 30-degree position for full 5 seconds 6b. Right Le - No drift; leg holds 30-degree position for full 5 seconds 7. Limb Ataxia: 0 - Absent 8. Sensory: 0 - Normal; no sensory loss 9. Best Language: 0 - No aphasia; normal 10. Dysarthria: 0 - Normal 11. Extinction and Inattention: 0 - No abnormality Total: 0
--- NOTE | 2025-05-28 14:12 | PCM.DC.SUM ---
Providers Date of Admission: 05/27/25 Date of Discharge: 05/28/25 Primary Care Physician: Dr. Agapito Saucedo, DO Consultations 05/27/25 17:59 Consult: Tele-Neurology Routine Consulting Provider: [facility] Reason for Consult: Acute Ischemic Stroke/TIA EMERGENT Consult: No MD Notified: Yes Date Notified: 05/27/25 Time Notified: 17:45 Method of Notification: Answering Service Nursing Unit Staff Notify [facility] of Tele-Neurology Consult: Yes Reason For Visit: TIA Diagnosis Discharge Diagnosis (1) Double vision: Status: Acute Code(s): H53.2 - Diplopia Medications at Discharge Home Medications magnesium oxide 400 mg PO DAILY SUPPLEMENT 01/27/21 levocetirizine 5 mg tablet (Xyzal) 5 mg PO DAILY ALLERGIES 09/13/22 pantoprazole 40 mg tablet,delayed release 40 mg PO DAILY GERD #90 tabs 07/12/23 lamotrigine 200 mg tablet (Lamictal) 400 mg PO DAILY ANXIETY 04/24/24 aspirin 81 mg chewable tablet 81 mg PO BREAKFAST BLOOD THINNER #30 tabs 07/29/24 quetiapine 100 mg tablet 100 mg PO QHS SLEEP 08/30/24 rosuvastatin 20 mg tablet 20 mg PO QHS SLEEP 08/30/24 furosemide 20 mg tablet 20 mg PO DAILY PRN edema #90 tabs 10/17/24 vitamin E (dl, acetate) 180 mg (400 unit) capsule 180 mg PO QDAY SLEEP 10/17/24 alendronate 70 mg tablet 70 mg PO QWEEK OSTEOPOROSIS 11/23/24 metoprolol succinate 50 mg tablet,extended release 24 hr 50 mg PO DAILY BP 12/05/24 polyethylene glycol 3350 17 gram/dose oral powder (ClearLax) 17 g PO DAILY PRN STOOL SOFTENER 12/05/24 ascorbate calcium (vitamin C) 500 mg tablet 500 mg PO QDAY 01/29/25 losartan 25 mg tablet 25 mg PO QDAY #90 tabs 04/25/25 calcium citrate 250 mg PO DAILY 05/27/25 cholecalciferol (vitamin D3) 125 mcg (5,000 unit) capsule 125 mcg PO DAILY 05/27/25 clonazepam 0.5 mg tablet (Klonopin) 0.5 mg PO DAILY 05/27/25 clonazepam 1 mg tablet 1 mg PO BID 05/27/25 quetiapine 400 mg tablet 400 mg PO QHS 05/27/25 ursodiol 250 mg tablet 250 mg PO BIDCM 05/27/25 zinc gluconate 50 mg tablet 50 mg PO DAILY PRN SUPPLEMENT 05/27/25 Hospital Course Operations None Procedures 2-D Echocardiogram Summary of Care Provided Minutes Spent on Discharge: 45 Hospital Course: Patient is a 60-year-old female with past medical history as outlined was admitted through the ED on 05/27/2025 with a complaint of double vision and lightheadedness which had resolved at time she came in. She was at the [employer] swimming and developed double vision at around 12:45 PM. It was similar to when she had a TIA previously so she came into the ED to be evaluated. Her symptoms had resolved by the time she came in. Stroke alert was called. CT of the brain showed no acute intracranial pathology and CT of the head and neck showed no acute hemodynamically significant stenosis. Teleneurology was consulted and in light of her NIH stroke scale being 0 she was not considered to be a TNK candidate. She was started on aspirin and admitted to rule out stroke. She had MRI of the brain which showed no evidence of any stroke. She was placed on high intensity statin also. She had 2D echo which showed EF of 60% and no regional wall motion abnormalities and normal left ventricular systolic function with pulmonary systolic pressure of 36 mmHg. Neurology reviewed patient and recommended that she be discharged on aspirin and high intensity statin and to be discharged on a 30-day event monitor which to be sent to [facility] for evaluation. She was discharged with a referral to a PCP as well as neurology for further follow-up. Patient seen and examined prior to discharge. She felt much better and had no complaints. She had an uneventful night. Symptoms have not recurred. Review of systems otherwise negative. Labs and vitals reviewed. Medications reviewed and reconciled. Physical Exam Const alert, oriented x3 and no apparent distress General Appearance: cooperative and comfortable Orientation / Consciousness: awake HEENT normocephalic, head/scalp atraumatic, hearing grossly normal bilaterally and moist oral mucous membranes Mouth: oral and palatal mucosa normal Eyes PERRL, EOMs intact bilaterally and conjunctivae normal Neck no lymphadenopathy and supple Resp normal respiratory effort, no use of accessory muscles and clear to auscultation bilaterally Cardio regular rate, regular rhythm, S1 normal heart sound, S2 normal heart sound and no murmurs GI normal to inspection, nondistended, normoactive bowel sounds, soft to palpation and non-tender Extremity normal to inspection and full ROM Skin no rashes or lesions noted Neuro oriented x3, CN's II-XII intact bilaterally, moves all extremities, no focal motor deficits and no sensory deficits noted Sensorium / Orientation: awake and alert Motor Exam: strength 5/5 throughout Psych affect normal Weight / BMI Weight Weight: 186 lb 11.704 oz Body Mass Index (BMI) 31.0 ABG / Lab / Microbiology Data 05/28/25 06:34 05/28/25 06:34 Laboratory: Laboratory Results - last 24 hr 05/27/25 14:47: WBC 8.2, RBC 4.03 L, Hgb 13.0, Hct 37.2, MCV 92.3, MCH 32.3 H, MCHC 34.9, RDW Std Deviation 40.6, RDW Coeff of Bravo 12.0, Plt Count 210, MPV 12.0, Immature Gran % (Auto) 0.500, Neut % (Auto) 62.8, Lymph % (Auto) 28.8, [place] % (Auto) 5.3, Eos % (Auto) 1.9, Baso % (Auto) 0.7, Absolute Neuts (auto) 5.2, Absolute Lymphs (auto) 2.37, Nucleated RBC % 0, PT 12.3, INR 0.9, APTT 29.1, Sodium 139, Potassium 4.0, Chloride 105, Carbon Dioxide 22.0, Anion Gap 12, BUN 12, Creatinine 0.91, Estim Creat Clear Calc 70.84, Est GFR (MDRD) Non-Af 72, BUN/Creatinine Ratio 13.4, Glucose 126 H, Calcium 9.4, Troponin T High Sens < 6 05/27/25 14:51: POC Glucose 111 H 05/27/25 17:04: Troponin T Hi Sens 2 Hr < 6 05/27/25 18:42: Troponin T Hi Sens 4Hr 8, NT pro BNP II 1031 H 05/28/25 06:34: WBC 5.9, RBC 3.67 L, Hgb 11.7 L, Hct 34.0 L, MCV 92.6, MCH 31.9, MCHC 34.4, RDW Std Deviation 42.1, RDW Coeff of Bravo 12.3, Plt Count 170, MPV 12.2 H, Immature Gran % (Auto) 0.200, Neut % (Auto) 52.0, Lymph % (Auto) 37.1, [place] % (Auto) 7.5, Eos % (Auto) 2.7, Baso % (Auto) 0.5, Absolute Neuts (auto) 3.0, Absolute Lymphs (auto) 2.17, Nucleated RBC % 0, Sodium 142, Potassium 3.5, Chloride 106, Carbon Dioxide 24.8, Anion Gap 11, BUN 12, Creatinine 0.77, Estim Creat Clear Calc 83.50, Est GFR (MDRD) Non-Af 88, BUN/Creatinine Ratio 15.2, Glucose 92, Hemoglobin A1c 5.1, Calcium 8.8, Triglycerides 91, Cholesterol 131, LDL Cholesterol, Calc 66, VLDL Cholesterol 18, HDL Cholesterol 47, Cholesterol/HDL Ratio 2.79 Radiography Diagnostic Testing: Radiology Impression Brain CT 05/27/25 14:48 IMPRESSION: 1. Small vessel ischemic/degenerative changes. 2. No acute intracranial hemorrhage, midline shift or mass effect. If symptoms persist, further evaluation with MRI is recommended. Red Alert: No acute intracranial hemorrhage. The critical information above was relayed directly by me by telephone to Johann Wade on 05/27/2025 at 3:03 pm with readback verification. Reading Location: [facility] Head/Neck CTA 05/27/25 14:55 IMPRESSION: No acute large vessel occlusions or high grade stenosis. Reading Location: [facility] Echocardiogram 05/27/25 17:59 Interpretation Summary Normal LV size. Left ventricular systolic function is normal. Mild (1+) eccentric mitral valve insufficiency. The left ventricular ejection fraction is 60 %. Pulmonary artery systolic pressure is 36 mmHg. Ordering Physician: Angela Rosa Referring Physician: Agapito Saucedo Performed By: Anny Hattie BRANTLEY, Jazmyne and Student Brain MRI 05/28/25 09:00 IMPRESSION: There is abnormal increased T2 and FLAIR signal in the deep white matter on the right and left with moderate bilateral white matter disease. The largest lesion in the mid parietal region on the right measures 0.6 cm, axial image 16/26 and on the left in the mid parietal region measures 0.5 cm, image 16. The differential includes demyelination, and chronic ischemic changes. There is mucosal thickening in the right maxillary sinus. There is fluid signal in a portion of the right mastoid air cells, with mastoiditis. Reading Location: [facility] D/ Instructions Discharge Activity: Return to Normal Activity Weight Bearing Status: Weight bearing as tolerated Call your doctor if you observe: Fever of 101 or Higher, Shortness of breath and Dizziness DC O2, CPAP, BIPAP Needs Home O2 Discharge instructions: No Meaningful Use Info Meaningful Use Meaningful Use Diagnoses (Choose all that apply): None applicable Discharge Plan Admission Admit Date/Time: 05/27/25 16:49 Primary Reason for Your Visit: TIA Attending Provider: Luna Marcial Primary Care Provider: Agapito Saucedo Consulting Providers: Lavelle Narvaez; Faby Burns; Mary New; Reba Romero; Marta Small; Kalyan Berger; Ilda Anaya; Bryan Ortega; Sundar Bernal; David Morales; Shwetha Ojeda; Edilson Wills; Yelitza Schwartz; Liane Ludwig; Lani Beatty; Harpal Sandhu; Lyla Hughes; Eliseo Tejada; Joya Gusman; Namita Arias; Angela Rosa Instructions Patient Instructions: TIA Dc Discharge Orders/Prescriptions Prescriptions: Continued levocetirizine [Xyzal] 5 mg tablet 5 mg PO DAILY lamotrigine [Lamictal] 200 mg tablet 400 mg PO DAILY vitamin E (dl, acetate) 180 mg (400 unit) capsule 180 mg PO QDAY rosuvastatin 20 mg tablet 20 mg PO QHS quetiapine 100 mg tablet 100 mg PO QHS Patient Comments: TAKES WITH 400MG FOR TOTAL DAILY DOSE OF 500MG alendronate 70 mg tablet 70 mg PO QWEEK ascorbate calcium (vitamin C) 500 mg tablet 500 mg PO QDAY aspirin 81 mg Tablet,Chewable 81 mg PO BREAKFAST Qty: 30 2RF polyethylene glycol 3350 [ClearLax] 17 gram/dose powder 17 g PO DAILY PRN (Reason: STOOL SOFTENER) metoprolol succinate 50 mg tablet extended release 24 hr 50 mg PO DAILY Rx Instructions: 50 mg orally DAILY (pt also takes a PRN dose of Metoprolol Tartrate 50 mg PRN episode of rapid HR); clonazepam 1 mg tablet 1 mg PO BID Rx Instructions: AM & PM quetiapine 400 mg tablet 400 mg PO QHS Patient Comments: TAKES WITH 100MG FOR TOTAL DAILY DOSE OF 500MG cholecalciferol (vitamin D3) 125 mcg (5,000 unit) capsule 125 mcg PO DAILY calcium citrate 250 mg calcium tablet 250 mg PO DAILY zinc gluconate 50 mg tablet 50 mg PO DAILY PRN (Reason: SUPPLEMENT) ursodiol 250 mg tablet 250 mg PO BIDCM clonazepam [Klonopin] 0.5 mg tablet 0.5 mg PO DAILY Rx Instructions: MID DAY magnesium oxide 400 mg magnesium tablet 400 mg PO DAILY pantoprazole 40 mg tablet,delayed release (DR/EC) 40 mg PO DAILY Qty: 90 0RF furosemide 20 mg tablet 20 mg PO DAILY PRN (Reason: edema) Qty: 90 3RF losartan 25 mg tablet 25 mg PO QDAY Qty: 90 3RF Other Ambulatory Orders: 30 Day Event Recorder Preventi (Urgent) Timeframe: 1 Day Facility: [facility] - Location: Cardiovascular Services Ordered By: Dr. Luna Marcial Referrals / Follow Up: Agapito Saucedo DO [Primary Care Provider] - Within 1 Week Junaid Meneses MD [Non-Staff -Ordering Privileges] - Within 2 Weeks Disposition Disposition (needs filled in before D/C Order can be placed): Home, Self Care Charges/Coding Visit Charges Inpatient E&M: 51804 Disch Hosp >30min
--- NOTE | 2025-05-28 15:50 | CASEMGMT ---
Patient has order for discharge. RN CM in to discuss needs at discharge. Patient denies needs or help at discharge. Patient had no further question or concerns.
[2025-05-28 16:06] VITALS: BP 130/87; PULSE 69; RESP 16; TEMP 36.9; O2SAT 97
== END 2025-05-28 16:13 | disposition home or self-care (01) ==
LOC: ED 15:40 → PCU 16:46
PROVIDERS: Admitting Provider Internal Medicine; Emergency Provider Surgery; PCP Student in an Organized Health Care Education/Training Program; Visit Provider Student in an Organized Health Care Education/Training Program
DX: H53.2 Diplopia (principal); F60.3 Borderline personality disorder; Z79.82 Long term (current) use of aspirin; Z82.49 Family history of ischemic heart disease and other diseases of the circulatory system; Z79.899 Other long term (current) drug therapy; G47.33 Obstructive sleep apnea (adult) (pediatric); I10 Essential (primary) hypertension; K21.9 Gastro-esophageal reflux disease without esophagitis; E78.00 Pure hypercholesterolemia, unspecified; Z87.891 Personal history of nicotine dependence; R73.9 Hyperglycemia, unspecified; R42 Dizziness and giddiness; J45.909 Unspecified asthma, uncomplicated; F32.9 Major depressive disorder, single episode, unspecified; F41.9 Anxiety disorder, unspecified; M79.89 Other specified soft tissue disorders
CPT/HCPCS: 70450; 70496; 70498; 70551; 80048; 80061; 82962; 83036; 83880; 84484; 85025; 85610; 85730; 93005; 93306; 94762; 96361; 96374; 99221; 99285; Q9967; A4216; G0378; J1938

== ENCOUNTER → 2025-06-12 | Outpatient (CLI) | payer MEDICARE, SELFPAY ==
[2025-06-12 13:16] LABS: Ammonia 30.9 umol/L (11-51)
[2025-06-12 13:22] LABS: CRP < 3.00 mg/L (0.0-3.0)
[2025-06-13 14:09] LABS: ANTINUCLEAR ANTIBODIES DIRECT Negative (Negative)
== END | disposition home or self-care (01) ==
LOC: MTLAB 09:55
PROVIDERS: PCP Student in an Organized Health Care Education/Training Program
DX: Z86.73 Personal history of transient ischemic attack (TIA), and cerebral infarction without residual deficits (principal)
CPT/HCPCS: 36415; 82140; 82542; 85652; 86038; 86140; 86225

== ENCOUNTER → 2025-10-01 | Outpatient (CLI) | payer MEDICARE, SELFPAY ==
--- NOTE | 2025-10-01 09:53 | US_ITS ---
PROCEDURE: ABD LIMITED W/ ELASTOGRAPHY REASON FOR EXAM: FATTY LIVER COMPARISON: May 11, 2024. TECHNIQUE: Procedure Code: [id number] Modality: US Procedure: ABD LIMITED W/ ELASTOGRAPHY Right upper quadrant abdominal ultrasound. Trac [facility] & Safety ElastQ Imaging shear wave elastography for non-invasive assessment of liver tissue stiffness. Vandana EPIQ Elite. FINDINGS: LIVER: Size: Borderline hepatomegaly. Length: 17.1 cm Echotexture: Diffusely echogenic suggesting fatty infiltration Contour: Normal Lesions: Stable cysts in the right lobe. The larger measures 1.4 cm x 1.5 cm 1.6 cm. Elastography: EQI Med: 4.9 kPa EQI Med [place]an: 1.28 m/s IQR/Med: 11.1 %* GALLBLADDER: Normal COMMON BILE DUCT: Normal measuring 3 mm. . PANCREAS: Normal Visualized portions of the right kidney are unremarkable. No right upper quadrant ascites. US/ABD Limited w/ Elastography IMPRESSION: NO TO MILD HEPATIC FIBROSIS Fatty infiltration of the liver. Stable hepatic cysts. Reference Values: SRU <1.37 m/s (5.7kPa): No to mild fibrosis 1.37 m/s - 2.2 m/s: Moderate to severe fibrosis >2.2 m/s (15kPa): Significant fibrosis / cirrhosis METAVIR Score F2 or higher: 1.34 m/s (5.7kPa) F3 or higher: 1.55 m/s (7.3kPa) F4: 1.80 m/s (10kPa) * If the IQR/Med is >30%, the variance in the measurements is a large and the a ccuracy of the measurement may be in question. Reading Location: [place] [id number]
== END | disposition home or self-care (01) ==
PROVIDERS: PCP Student in an Organized Health Care Education/Training Program; Referring Provider Internal Medicine Gastroenterology; Visit Provider Internal Medicine Gastroenterology
DX: K58.1 Irritable bowel syndrome with constipation (principal); K76.0 Fatty (change of) liver, not elsewhere classified
CPT/HCPCS: 76705; 76981

== ENCOUNTER → 2025-10-14 | Outpatient (CLI) | payer MEDICARE, SELFPAY ==
--- NOTE | 2025-10-14 13:41 | BI_ITS ---
EXAM: SCRN MAMM (CAD)W/KASIA BILAT DATE: 10/14/2025 CLINICAL HISTORY: F, Age 60 y/o , SCREENING TECHNIQUE: Procedure Code: [id number] Modality: MG Procedure: SCRN MAMM (CAD)W/KASIA BILAT COMPARISON: Prior exam(s) dated 10/11/2024, 10/05/2023, and 09/22/2022. FINDINGS: TISSUE DENSITY: The breasts are heterogeneously dense, which may obscure small masses. Bilateral Breast Mammographic Findings: Stable focal fibroglandular densities are seen in both breasts. Benign round microcalcifications are seen in both breasts. No suspicious masses, suspicious cluster of microcalcifications, architectural distortion or secondary signs of malignancy is identified in either breast. BI/SCRN MAMM (CAD)W/KASIA BILAT IMPRESSION: Benign screening mammogram. OVERALL FINAL ASSESSMENT BI-RADS 2: BENIGN RECOMMENDATION: Routine annual follow-up in 1 Year Additional Recommendation none A letter with findings and recommendations will be mailed to the patient. Reading Location: [id number]
== END | disposition home or self-care (01) ==
LOC: OPBI 13:40
PROVIDERS: PCP Student in an Organized Health Care Education/Training Program; Referring Provider Student in an Organized Health Care Education/Training Program; Visit Provider Student in an Organized Health Care Education/Training Program
DX: Z12.31 Encounter for screening mammogram for malignant neoplasm of breast (principal)
CPT/HCPCS: 77063; 77067